=== PATIENT | male | born 1950 | race Caucasian/White ===

== ENCOUNTER → 2024-05-04 | Outpatient (CLI) | payer MEDICARE, MEDICAID, SELFPAY ==
--- NOTE | 2024-05-04 15:40 | RAD_ITS ---
PROCEDURE: HAND MIN 3 VIEWS REASON FOR EXAM: PAIN TECHNIQUE: 3 view(s) of the right hand COMPARISON: None. FINDINGS: No fracture or dislocation. The joint spaces appear within limits. No radiopaque foreign body identified. 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 Soft tissues are unremarkable. RAD/Hand Min 3 Views IMPRESSION: No fracture or dislocation. 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 Reading Location: [id number]
== END | disposition home or self-care (01) ==
PROVIDERS: PCP Family Medicine; Referring Provider Surgery Plastic and Reconstructive Surgery; Visit Provider Surgery Plastic and Reconstructive Surgery
DX: M79.641 Pain in right hand (principal)
CPT/HCPCS: 73130

== ENCOUNTER 2024-06-12 10:49 | Outpatient (CLI) | payer MEDICARE, MEDICAID, SELFPAY ==
--- NOTE | 2024-06-12 10:52 | ART_ITS ---
Reason For Study Reason For Study: CLAUDICATION Procedure A bilateral lower extremity continuous wave Doppler with analog waveform analysis,segmental pressures,and ankle brachial indexes with exercise. Left Segmental Pressures Left posterior tibial artery = 152mmHg. Left dorsalis pedis artery = 131mmHg. Left digit = 154 mmHg. The left posterior tibial artery waveforms are triphasic. The left dorsalis pedis waveforms are triphasic. Right Segmental Pressures Right posterior tibial artery = 161mmHg. Right dorsalis pedis artery = 140mmHg. Right digit = 153 mmHg. The right posterior tibial artery waveforms are biphasic. The right dorsalis pedis waveforms are triphasic. Indices The right ankle brachial index by the posterior tibial artery is 1.18. The right ankle brachial index by the dorsalis pedis is 1.02. The right digital-brachial index is 1.12. The right post exercise ankle brachial index is 1.23. The left ankle brachial index by the posterior tibial artery is 1.11. The left ankle brachial index by the dorsalis pedis is 0.96. The left digital-brachial index is 1.12. The left post exercise ankle brachial index is 1.19. VL/Lower Ext Art Exam w/ Exercise Interpretation Summary Right RAQUEL 1.18, normal. TBI and Doppler/PVR waveforms of the right leg normal a t rest. Right lower extremity exhibits normal response to exercise. Left RAQUEL 1.11, normal. TBI and Doppler/PVR waveforms of the left leg normal at rest. Left lower extremity exhibits normal response to exercise. Ordering Physician: Claudia Castro Referring Physician: Jorden Guzmán Performed By: Shiv Prather RVT
== END 2024-06-12 23:59 | disposition home or self-care (01) ==
LOC: CVS 10:49
PROVIDERS: PCP Family Medicine; Referring Provider Physician Assistant; Visit Provider Physician Assistant
DX: I73.9 Peripheral vascular disease, unspecified (principal)
CPT/HCPCS: 93924

== ENCOUNTER → 2024-06-20 | Outpatient (CLI) | payer MEDICARE, MEDICAID, SELFPAY ==
--- NOTE | 2024-06-20 15:55 | RAD_ITS ---
PROCEDURE: LUMBAR SPINE 2 OR 3 VIEWS 06/20/2024 REASON FOR EXAM: CLAUDICAITON, RADICULAR PAIN TECHNIQUE: 2 view(s) of the lumbar spine FINDINGS: Vertebrae: No acute fracture. Discs: Mild multilevel disc space narrowing. Alignment: Mild levoscoliosis centered at L3. 5 mm of anterolisthesis of L4 on L5. Other: Facet hypertrophy. RAD/Lumbar Spine 2 or 3 Views IMPRESSION: Mild levoscoliosis with degenerative disc disease with 5 mm of anterolisthesis of L4 on L5. Reading Location: [id number]
== END | disposition home or self-care (01) ==
LOC: RAD 15:52
PROVIDERS: PCP Family Medicine; Referring Provider Physician Assistant; Visit Provider Physician Assistant
DX: I73.9 Peripheral vascular disease, unspecified (principal); M79.606 Pain in leg, unspecified
CPT/HCPCS: 72100

== ENCOUNTER → 2024-08-18 | Outpatient (CLI) | payer MEDICARE, MEDICAID, SELFPAY ==
--- NOTE | 2024-08-18 10:50 | MRI_ITS ---
PROCEDURE: SPINE LUMBAR (ROUTINE) 08/18/2024 REASON FOR EXAM: PAIN TECHNIQUE: SPINE LUMBAR (ROUTINE) COMPARISON: June 20, 2024 x-ray FINDINGS: There is grade 1 spondylolisthesis at L4-5, 0.4 cm. The vertebral body height is maintained. Vertebral body marrow signal is normal. Intervertebral disc signal shows desiccation. The facets are aligned. The L1-L2 level: There is mild central disc protrusion. There is no lateral recess stenosis or foraminal stenosis. There is no critical central canal stenosis. The L2-L3 level: There is mild central and right and left paracentral disc and osteophyte protrusion. There is mild bilateral lateral recess effacement. There is mild bilateral foraminal narrowing secondary to disc protrusion and facet hypertrophy. There is no critical central canal stenosis. The L3-L4 level: There is moderate central and right and left paracentral disc and osteophyte protrusion. There is moderate bilateral lateral recess stenosis. There is moderate bilateral foraminal narrowing secondary to disc protrusion and facet hypertrophy. There is mild central canal stenosis. The L4-L5 level: There is moderate central and right and left paracentral disc and osteophyte protrusion. There is moderate right and severe left lateral recess stenosis. There is moderate bilateral foraminal narrowing secondary to disc protrusion and facet hypertrophy. There is severe central canal stenosis, partly secondary to ligamentous hypertrophy. Bilateral facet effusions are present. The L5-S1 level: There is mild central disk protrusion. There is no lateral recess stenosis or foraminal stenosis. There is no critical central canal stenosis. The visualized conus shows normal signal characteristics. A 9 cm cyst is partly visible on the upper pole of the left kidney. MRI/Spine Lumbar (Routine) IMPRESSION: A 9 cm cyst is partly visible on the upper pole of the left kidney. There is grade 1 spondylolisthesis at L4-5, 0.4 cm. There is mild central canal stenosis at L3-4, severe central canal stenosis at L4-5, with lateral recess and foraminal narrowing. Reading [facility]
== END | disposition home or self-care (01) ==
LOC: MRI 10:17
PROVIDERS: PCP Family Medicine; Referring Provider Student in an Organized Health Care Education/Training Program; Visit Provider Student in an Organized Health Care Education/Training Program
DX: M48.062 Spinal stenosis, lumbar region with neurogenic claudication (principal); M43.16 Spondylolisthesis, lumbar region
CPT/HCPCS: 72148

== ENCOUNTER 2024-12-11 20:30 | Emergency (ER) | payer MEDICARE, MEDICAID, SELFPAY ==
[2024-12-11] VITALS (17 sets, daily range): BP systolic 93–121; BP diastolic 46–77; PULSE 91–106; RESP 14–28; TEMP 37; O2SAT 94–100; BMI 33.9
--- NOTE | 2024-12-11 21:47 | EKG12_ITS ---
Test Reason : DYSRHYTHMIA Blood Pressure : */* mmHG Vent. Rate : 93 BPM Atrial Rate : 93 BPM P-R Int : 162 ms QRS Dur : 108 ms QT Int : 384 ms P-R-T Axes : 72 -22 72 degrees QTcB Int : 477 ms Sinus rhythm with occasional Premature ventricular complexes Nonspecific ST abnormality Abnormal ECG Confirmed by Ki Arana ([id number]), medical editor YADIEL VALDES ([id number]) on 12/12/2024 11:16:28 AM Referred By: CHERYL Confirmed By: Ki Arana
--- NOTE | 2024-12-11 21:57 | ED.VIS.DYS ---
HPI History of Present Illness Chief Complaint: Shortness of Breath Informant: patient Onset/Context/Timing Onset: Today and Yesterday Context: gradual Timing: Intermittent and - (Primarily supine.) Quality: Positive for Orthopnea Current Severity: Gone Maximum Severity: Mild Worsened by: Lying flat Relieved by: - (Upright position) Associated Symptoms Chest Pain: Positive for None Narrative Narrative: 74-year-old male history of CHF, diabetes, CAD with a total of 3 stents. Prostate cancer. Last stents were placed a month ago at [facility]. He has been on Brilinta and states he has been taking it. She has been short of breath last 2 days primarily supine he was concerned. He had congestive heart failure with the symptoms 10 years ago. Denies any fever. No new cough. No leg swelling. No hemoptysis. No chest pain. PE Risk Factors: Positive for Cancer, Recent immobilization, Recent surgery (Cardiac cath with stents.) and - (Patient is on a blood thinner Brilinta. Has been taking it.); Negative for Prior DVT or PE or Recent travel Prior similar symptoms: Yes (CHF 10 years ago.) Recent Illness/Hospitalization: Yes [facility] Medical History Cervical myelopathy Kyphosis Cervical radiculopathy Pain Family history of prostate problems Heart failure High blood pressure High cholesterol Neuropathy Cancer Carpal tunnel syndrome Home Medications ?Medication ?Instructions ?Recorded ?Last Taken ?Type albuterol sulfate 2.5 mg/3 mL 2.5 mg inhalation Q4H PRN PRN Sob 05/10/14 Unknown History (0.083 %) solution for nebulization &/Or Wheezing albuterol sulfate 90 mcg/actuation 2 puff inhalation Q4H PRN PRN Sob 05/10/14 Unknown History aerosol inhaler (Ventolin HFA) &/Or Wheezing metformin 500 mg tablet,extended 1,000 mg PO BID 05/10/14 Unknown History release 24 hr atorvastatin 80 mg tablet 80 mg PO QHS 05/26/24 Unknown History clopidogrel 75 mg tablet 75 mg PO QDAY 05/26/24 Unknown History empagliflozin 25 mg tablet 25 mg PO QAM 05/26/24 Unknown History (Jardiance) glimepiride 4 mg tablet 4 mg PO BID 05/26/24 Unknown History lisinopril 10 mg tablet 10 mg PO QDAY 05/26/24 Unknown History metoprolol succinate 25 mg 25 mg PO QDAY 05/26/24 Unknown History tablet,extended release 24 hr sitagliptin phosphate 100 mg 100 mg PO QDAY 05/26/24 Unknown History tablet (Januvia) prednisone 20 mg tablet 40 mg (2 x 20 mg) PO DAILY 7 days 12/11/24 Unknown Rx #14 tabs Allergy/AdvReac Type Severity Reaction Status Date / Time No Known Allergies Allergy Verified 12/11/24 20:32 Family History Other Cancer Diabetes Heart disease Hypertension Social History Smoking Status: Light Smoker (<10/day) Tobacco: How many years used: 50 ROS ROS ED ROS Narrative Shortness of breath primarily supine. Constitutional Constitutional ED: Denies fever(s) Eyes Eyes: Denies blurry vision ENT ENT ED: Denies ear pain Cardiovascular Cardiovascular: Reports orthopnea; Denies chest pain Respiratory/Chest Respiratory/Chest: Reports dyspnea and orthopnea; Denies cough Gastrointestinal Gastrointestinal: Denies abdominal pain, diarrhea, nausea or vomiting Genitourinary Genitourinary ED: Denies dysuria or hematuria Musculoskeletal Musculoskeletal: Denies arthralgias Integumentary Denies abscess Neurologic Neurologic: Denies headache(s) Psychiatric Psychiatric: Denies anxiety or depression Endocrine Endocrinology: Denies cold intolerance Hematologic/Lymphatic Hematologic/Lymphatic: Denies easy bleeding, easy bruising or lymphadenopathy Allergic/Immunologic Allergic/Immunologic ED: Denies mouth swelling, tongue swelling or urticaria EXAM Physical Exam Narrative Exam Narrative: Well-appearing 74-year-old male. Vital signs show initial blood pressure 90/77 but he is sitting up tolerating it well. Pulse ox is 98% on room air. He said he is symptom-free sitting upright. H EENT exam pupils round react light. Neck nontender no JVD. Lungs scattered wheezing. No rales or rhonchi. Equal symmetrical. Heart rate about 95. No murmur. Chest wall nontender. Abdomen soft nontender. Moving all 4 extremities. Calves are nontender without edema or cords. 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 Normal radial pulses. Back nontender. Neurologically is awake alert. Answer questions following commands. Const Vital Signs: 12/11/24 20:31 12/11/24 20:59 12/11/24 20:59 Temperature 98.6 F Temperature Source Oral Pulse Rate 106 H 96 Respiratory Rate 15 21 H Respiratory Effort Short of Breath Respiratory Depth Normal Respiratory Pattern Tachypnea Blood Pressure 93/77 Blood Pressure Mean 82 Pulse Ox 98 97 Oxygen Delivery Method Room Air Room Air 12/11/24 21:00 12/11/24 21:15 12/11/24 21:30 Temperature Temperature Source Pulse Rate 93 95 92 Respiratory Rate 26 H 28 H 16 Respiratory Effort Respiratory Depth Respiratory Pattern Blood Pressure 110/61 101/46 L Blood Pressure Mean 76 64 Pulse Ox 95 94 95 Oxygen Delivery Method 12/11/24 21:45 12/11/24 21:47 12/11/24 22:00 Temperature Temperature Source Pulse Rate 97 96 Respiratory Rate 22 H 28 H Respiratory Effort Respiratory Depth Respiratory Pattern Blood Pressure 107/50 L 110/77 Blood Pressure Mean 67 88 Pulse Ox 94 96 96 Oxygen Delivery Method Room Air 12/11/24 22:09 12/11/24 22:15 12/11/24 22:31 Temperature Temperature Source Pulse Rate 96 91 Respiratory Rate 22 H 14 Respiratory Effort Respiratory Depth Respiratory Pattern Tachypnea Blood Pressure 118/58 L 121/65 H Blood Pressure Mean 76 81 Pulse Ox 100 Oxygen Delivery Method 12/11/24 22:31 12/11/24 22:37 12/11/24 22:45 Temperature Temperature Source Pulse Rate 95 91 Respiratory Rate 23 H 24 H Respiratory Effort Respiratory Depth Respiratory Pattern Blood Pressure 121/65 H Blood Pressure Mean 81 Pulse Ox 95 97 Oxygen Delivery Method 12/11/24 23:00 12/11/24 23:15 12/11/24 23:30 Temperature Temperature Source Pulse Rate 92 93 98 Respiratory Rate 23 H 22 H 20 H Respiratory Effort Respiratory Depth Respiratory Pattern Blood Pressure Blood Pressure Mean Pulse Ox 98 96 Oxygen Delivery Method 12/11/24 23:45 12/12/24 00:00 12/12/24 00:15 Temperature Temperature Source Pulse Rate 96 96 91 Respiratory Rate 19 H 22 H 25 H Respiratory Effort Respiratory Depth Respiratory Pattern Blood Pressure Blood Pressure Mean Pulse Ox 95 95 95 Oxygen Delivery Method MDM MDM MDM Narrative Medical decision making narrative: 74-year-old male short of breath may be secondary to CHF with his orthopnea. Rule out MA with pneumonia also he does have a history of COPD is wheezing to be given an aerosol treatment. Will reassess his blood pressure at this time I do not want to give him fluids to have further information. Repeat exam patient is doing much better around 11:40 PM. Breathing is improved after the aerosol and Solu-Medrol. Wheezing is resolved. Chest x-ray does not show any signs of failure. Labs are consistent with mild dehydration he was given a fluid bolus. Patient to be discharged home treated as a COPD exacerbation. He has an inhaler at home. We placed on prednisone 40 mg a day for a week. Follow-up with his doctor. Return if feeling worse. Patient doing well at 12:18 AM. To be discharged home with outpatient follow-up. Patient and family are comfortable with the plan. History & Record Review Discussion w/independent historian: Patient and Family Additional record(s) reviewed:: Prior inpatient record, Prior outpatient record, Prior ED visit and Prior labs Lab Data Attestation: I reviewed the patient's lab results. Lab results narrative: CBC white count 8. H&H of 12.2 and 37. Platelets 497. Chest x-ray chronic changes no acute process. Chemistries show a gap of 18. BUN and creatinine of 30 and 1. Glucose 152. Initial troponin 32. Repeat troponin 37. BNP 326. Labs: Laboratory Results - last 24 hr 12/11/24 12/11/24 20:49 23:27 WBC 8.8 RBC 4.13 L Hgb 12.2 L Hct 37.4 L MCV 90.6 MCH 29.5 MCHC 32.6 RDW Std Deviation 47.9 H RDW Coeff of Ron 14.5 Plt Count 497 H MPV 9.1 Immature Gran % (Auto) 0.300 Neut % (Auto) 77.7 H Lymph % (Auto) 8.6 L Barren % (Auto) 9.0 Eos % (Auto) 4.1 Baso % (Auto) 0.3 Absolute Neuts (auto) 6.8 Absolute Lymphs (auto) 0.76 L Nucleated RBC % 0 Sodium 136 Potassium 4.3 Chloride 99 Carbon Dioxide 19.5 L Anion Gap 18 H BUN 30 H Creatinine 1.00 Estim Creat Clear Calc 74.57 Est GFR (MDRD) Non-Af 80 BUN/Creatinine Ratio 30.0 H Glucose 152 H Calcium 9.1 Troponin T High Sens 32 H Troponin T Hi Sens 2 Hr 37 H NT pro BNP II 326 Radiography Chest X-Ray - ED: 2 View, Read by ED Physician, Read by Radiologist, Heart, Lungs, Mediastinum, Bony Structures, No Acute Disease and Chronic Changes Diagnostic Testing: Clinical Impression(s) from Imaging Studies Chest X-Ray 12/11/24 22:26 IMPRESSION: No acute cardiopulmonary disease. Reading Location: [facility] Chest x-ray, 2 views, AP and lateral, interpreted by by myself and the radiologist shows no acute abnormality. Normal cardiac silhouette. Normal lung moore. No pneumonia. No effusions. No signs of congestive heart failure. Chronic changes. Rhythm Strip Rhythm Strip: Sinus Rhythm Rate: 93 Ectopy: PVC(s) EKG Initial EKG: Attestation: I personally reviewed and interpreted this EKG as follows: Interpretation: Sinus Rhythm and No Acute Injury Pattern Comments: Normal sinus rhythm rate 93 with PVCs. No acute signs of MA or ischemia. Discharge Plan Triage Chief Complaint: Shortness of Breath ED Provider: Toby Sanon Dx/Rx/DC Orders Clinical Impression: Shortness of breath, Bilateral wheezing, Acute exacerbation of chronic obstructive pulmonary disease, Hx of acute congestive heart failure, Type 2 diabetes mellitus Instructions: COPD Quit Smoking, ED COPD Flare Prescriptions: New prednisone 20 mg tablet 40 mg PO DAILY 7 Days Qty: 14 0RF No Action Jardiance 25 mg tablet 25 mg PO QAM lisinopril 10 mg tablet 10 mg PO QDAY glimepiride 4 mg tablet 4 mg PO BID metoprolol succinate 25 mg tablet extended release 24 hr 25 mg PO QDAY Januvia 100 mg tablet 100 mg PO QDAY atorvastatin 80 mg tablet 80 mg PO QHS clopidogrel 75 mg tablet 75 mg PO QDAY albuterol sulfate 2.5 MG/3 ML solution for nebulization 2.5 mg inhalation Q4H PRN PRN (Reason: Sob &/Or Wheezing) metformin 500 MG tablet 1,000 mg PO BID albuterol sulfate [Ventolin HFA] 1 INHALER inhaler 2 puff inhalation Q4H PRN PRN (Reason: Sob &/Or Wheezing) Primary Care Provider: Jorden Guzmán Referrals: Jorden Guzmán MD [Primary Care Provider, Family Practice] - 3-5 Days if not improving Activity Restrictions/Additional Instructions: Use your inhaler 2 puffs every 2 hours as needed. Follow-up with your doctor to ensure you are improving. Plenty of fluids and rest. Prednisone 40 mg a day for 1 week. He should progressively get better. Tonight there is no signs of congestive heart failure. Long-term for your own health make sure you cut back and long-term try to stop smoking. Print Language: [place] Disposition Disposition: Home, Self Care
--- OUTSIDE RECORDS SUMMARY | 2024-12-11 21:59 | XMS RPT_ITS | CCD ---
Author Organization [facility] Care Team Providers Care Rn Staff Name Role Phone PABLO PRECIADO Unavailable Unavailable Jorden Hartmann Unavailable Unavailable PABLO PRECIADO Unavailable Unavailable PABLO PRECIADO Unavailable Unavailable Jorden Hartmann Unavailable Unavailable Jorden Hartmann Unavailable Unavailable PABLO PRECIADO Unavailable Unavailable Jorden Hartmann MD Primary Care Provider [facility], Keti Unavailable Jorden Hartmann MD Primary Care Provider [facility], Keti Unavailable [facility], Keti Unavailable Jorden Hartmann MD Primary Care Provider 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 Jorden Hartmann MD Primary Care Provider Dr. Jorden Hartmann MD Referring Provider Dr. Guru Antony MD Attending Provider Dr. Guru Antony MD Referring Provider Venita Pierson Unavailable Unavailabl Jorden Brown MD Primary Care Provider Debora Baum Referring Provider Dr. Jorden Hartmann MD Referring Provider Claudia Delgado Attending Provider Claudia Delgado Referring Provider [phone] Cornell Self MD Attending Provider Acacia Cai Attending Provider Luisa PERALES, Dr. 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 Leonardo Primary Care Provider Arpan PERALES, Dr. Garvey Attending Provider Acacia Cai Referring Provider Arielle PERALES, Dr. Leonardo Primary Care Provider Arpan PERALES, Dr. Garvey Referring Provider Arielle PERALES, Dr. Leonardo Referring Provider Arpan PERALES, Dr. Garvey Attending Provider Darion PERALES, Dr. Patel Attending Provider Arielle, Jorden Referring Unavailable Arielle, Jorden Primary Care Unavailable Jorge Olrando Attending Unavailable Arielle, Jorden Referring Unavailable Arielle, Jorden Primary Care Unavailable Siska, Guru Attending Unavailable Airelle, Jorden Primary Care Unavailable Braxton Moran Attending Unavailable Arielle, Jorden Referring Unavailable Arielle, Jorden Primary Care Unavailable ErikaAcacia Attending Unavailable Arielle, Jorden Primary Care Unavailable Dori Jamesyn Attending Unavailable Erika, Acacia Referring Unavailable Castro, Claudia Referring Unavailable Arielle, Jorden Primary Care Unavailable Castro, Claudia Attending Unavailable Castro, Claudia Attending Unavailable Castro, Claudia Referring Unavailable Arielle, Jorden Primary Care Unavailable Arielle, Jorden Primary Care Unavailable Siska, Guru Attending Unavailable Siska, Guru Referring Unavailable Castro, Claudia Attending Unavailable Arielle, Jorden Primary Care Unavailable Siska, Guru Referring Unavailable Arielle, Jorden Primary Care Unavailable Arielle, Jorden Referring Unavailable Siska, Guru Attending Unavailable Castro, Claudia Referring Unavailable Arielle, Jorden Primary Care Unavailable Cornell Self Attending Unavailable Arielle, Jorden Primary Care Unavailable Siska, Guru Attending Unavailable Debora Baum Referring Unavailable Eduardo PERALES, Bebeto Unavailable [phone] PROVIDER, UNKNOWN Referring Unavailable ARIELLE, JORDEN A Primary Care Unavailable DOOKHAN, MONICO Referring Unavailable ARIELLE, JORDEN A Primary Care Unavailable DOOKHAN, MONICO Referring Unavailable ARIELLE, JORDEN A Primary Care Unavailable DOOKHAN, MONICO Referring Unavailable ARIELLE, JORDEN A Primary Care Unavailable ARIELLE, JORDEN A Primary Care Unavailable LACHELLE, DAESUNG Referring Unavailable ARIELLE, JORDEN A Primary Care Unavailable LACHELLE, DAESUNG Referring Unavailable ARIELLE, JORDEN A Primary Care Unavailable LACHELLE, DAESUNG Attending Unavailable LACHELLE, DAESUNG Referring Unavailable ARIELLE, JORDEN A Primary Care Unavailable LACHELLE, DAESUNG Referring Unavailable ARIELLE, JORDEN A Primary Care Unavailable PALMIRA RUSSELL Referring Unavailable ARIELLE, JORDEN A Primary Care Unavailable ARIELLE, JORDEN A Attending Unavailable SELF Referring Unavailable ARIELLE, JORDEN A Primary Care Unavailable MOO MABRY Attending Unavailable ARIELLE, JORDEN A Primary Care Unavailable LACHELLE, DAESUNG Referring Unavailable ARIELLE, JORDEN A Primary Care Unavailable LACHELLE, DAESUNG Referring Unavailable ARIELLE, JORDEN A Primary Care Unavailable LACHELLE, DAESUNG Referring Unavailable ARIELLE, JORDEN A Primary Care Unavailable LACHELLE, DAESUNG Referring Unavailable ARIELLE, JORDEN A Primary Care Unavailable LACHELLE, DAESUNG Referring Unavailable ARIELLE, JORDEN A Primary Care Unavailable LACHELLE, DAESUNG Referring Unavailable ARIELLE, JORDEN A Primary Care Unavailable AYAN JEFFERSON JR Attending Unavaila ble LACHELLE, DAESUNG Referring Unavailable ARIELLE, JORDEN A Primary Care Unavailable LACHELLE, DAESUNG Referring Unavailable ARIELLE, JORDEN A Primary Care Unavailable AYAN JEFFERSON JR Referring Unavaila ble LACHELLE DASUZIUNG Attending Unavailable ARIELLE, JORDEN A Primary Care Unavailable SHAWNEE BELLE Referring Unavailable ARIELLE, JORDEN A Primary Care Unavailable AYAN JEFFERSON JR Attending Unavaila ble ARIELLE, JORDEN A Primary Care Unavailable ARIELLE, JORDEN A Attending Unavailable ARIELLE, JORDEN A Primary Care Unavailable ARIELLE, JORDEN A Referring Unavailable ARIELLE, JORDEN A Primary Care Unavailable ARIELLE, JORDEN A Referring Unavailable ARIELLE, JORDEN A Primary Care Unavailable LACHELLEJESUSUNG Attending Unavailable ARIELLE, JORDEN A Primary Care Unavailable DEBORA MARTINEZ Referring Unavailable DOOKWALLACE, MONICO Attending Unavailable ARIELLE, JORDEN A Primary Care Unavailable LACHELLEJESUSUNG Attending Unavailable ARIELLE, JORDEN A Referring Unavailable ARIELLE, JORDEN A Primary Care Unavailable ARIELLE, JORDEN A Primary Care Unavailable LACHELLEJESUSUNG Attending Unavailable ARIELLE, JORDEN A Primary Care Unavailable LACHELLE, DAESUNG Referring Unavailable LACHELLE, DAESUNG Referring Unavailable ARIELLE, JORDEN A Primary Care Unavailable ARIELLE, JORDEN A Primary Care Unavailable LACHELLE, DASUZIUNG Referring Unavailable ARIELLE, JORDEN A Primary Care Unavailable DEBORA MARTINEZ Referring Unavailable ARIELLE, JORDEN A Primary Care Unavailable LACHELLE, DAESUNG Referring Unavailable ARIELLE, JORDEN A Primary Care Unavailable ARIELLE, JORDEN A Referring Unavailable ARIELLE, JORDEN A Primary Care Unavailable AYAN JEFFERSON JR Attending Unavaila ble ARIELLE, JORDEN A Primary Care Unavailable DEBORA MARTINEZ Attending Unavailable ARIELLE, JORDEN A Primary Care Unavailable ARIELLE, JORDEN A Referring Unavailable ARIELLE, JORDEN A Primary Care Unavailable LACHELLE, JESUSUNG Attending Unavailable ARIELLE, JORDEN A Primary Care Unavailable LACHELLE, JESUSUNG Attending Unavailable ARIELLE, JORDEN A Primary Care Unavailable LACHELLE, JESUSUNG Attending Unavailable LACHELLE, DAESUNG Referring Unavailable ARIELLE, JORDEN A Primary Care Unavailable LACHELLE, DAESUNG Referring Unavailable ARIELLE, JORDEN A Primary Care Unavailable GERMAN CATALAN Attending Unavailable ARIELLE, JORDEN A Primary Care Unavailable LACHELLE, DAESUNG Referring Unavailable ARIELLE, JORDEN A Primary Care Unavailable LACHELLE, DASUZIUNG Attending Unavailable ARIELLE, JORDEN A Primary Care Unavailable LACHELLE, DAESUNG Referring Unavailable ARIELLE, JORDEN A Primary Care Unavailable LACHELLE, DAESUNG Referring Unavailable ARIELLE, JORDEN A Primary Care Unavailable LACHELLE, DAESUNG Referring Unavailable ARIELLE, JORDEN A Primary Care Unavailable LACHELLE, DAESUNG Referring Unavailable ARIELLE, JORDEN A Primary Care Unavailable LACHELLE, DAESUNG Referring Unavailable ARIELLE, JORDEN A Primary Care Unavailable LACHELLE, DAESUNG Referring Unavailable ARIELLE, JORDEN A Primary Care Unavailable LACHELLE, DAESUNG Referring Unavailable ARIELLE, JORDEN A Primary Care Unavailable LACHELLE, DASUZIUNG Attending Unavailable ARIELLE, JORDEN A Primary Care Unavailable LACHELLE, DAESUNG Referring Unavailable ARIELLE, JORDEN A Primary Care Unavailable LACHELLE, DAESUNG Referring Unavailable ARIELLE, JORDEN A Primary Care Unavailable LACHELLE, DAESUNG Referring Unavailable PALMIRA RUSSELL Attending Unavailable ARIELLE, JORDEN A Primary Care Unavailable ZO BOWDEN Attending Unavailable JORDEN HARTMANN Primary Care Unavailable ZO BOWDEN Attending Unavailable JORDEN HARTMANN Primary Care Unavailable GAJANANA, DEEPAKRAJ Admitting Unavailable GAJANANA DEEPAKRAJ Attending Unavailable GAJANCHELSEY, DEEPAKRAJ Referring Unavailable JORDEN HARTMANN Primary Care Unavailable HENDRANI, SANTIAGO Admitting Unavailable HENDRANI, SANTIAGO Attending Unavailable HENDRANI, SANTIAGO Referring Unavailable JORDEN HARTMANN Primary Care Unavailable GAJANANA, DEEPAKRAJ Admitting Unavailable GAJANANA, DEEPAKRAJ Attending Unavailable EDUARDO, DEEPAKRAJ Referring Unavailable JORDEN HARTMANN Primary Care Unavailable JORDEN HARTMANN Consulting Unavailable Allergies Allergy Classification Reported Allergen(s) Allergy Type Date of Onset Reaction(s) Facility semaglutide (1 source) semaglutide Drug Allergy 04-16-2021 Diarrhea [facility] (20 sources) semaglutide; Translations: [SEMAGLUTIDE] Drug Allergy 04-16-2021 Diarrhea [facility] Work Phone: Medications Current Medications Medication Drug Class(es) Dates Sig (Normalized) Sig (Original) acetaminophen 500 mg oral tablet (1 source) Start: 10-30-2024 End: 10-30-2024 take 2 tablets by mouth once acetaminophen (TYLENOL) 500 mg tablet Indications: Coronary artery disease involving [place] coronary artery of [place] heart without angina pectoris , Preoperative testing Take 2 tablets by mouth one time only for 1 dose. Please take morning of surgery. 10/30/2024 10/30/2024 Active [id number] 200 actuat albuterol 0.09 mg/actuat metered dose inhaler (20 sources) beta2-Adrenergic Agonist Start: 12-06-2019 End: 10-22-2021 take 2 puff(s) by inhalation every four hours as needed albuterol HFA (PROVENTIL HFA, VENTOLIN HFA) 90 mcg/actuation inhaler Inhale 2 Puffs as instructed every 4 hours as needed. 18 g 2 10/22/2021 Active Start: 05-10-2014 take 2.5 mg by inhal ation every four hours as needed for wheezing Albuterol Sulfate 2.5 MG/3 ML solution for nebulization Active 2.5 mg INHALATION EVERY 4 HOURS NEEDED as needed for Sob &/Or Wheezing May 10, 2014 12:00am Start: 05-10-2014 Albuterol Sulf ate (Ventolin Hfa (Sp)) 1 INHALER inhaler Active 2 NMA INHALATION EVERY 4 HOURS NEEDED as needed for Sob &/Or Wheezing May 10, 2014 12:00am Comment on above: Inhale 2 Puffs as in structed every 4 hours as needed. aspirin 81 mg delayed release oral tablet (7 sources) Platelet Aggregation Inhibitor, Nonsteroidal Anti-inflammatory Drug Start: 10-30-2024 take 1 tablet by mouth once aspirin, enteric coated (ASPIRIN, ENTERIC COATED) 81 mg EC tablet Indications: Coronary artery disease involving [place] coronary artery of [place] heart without angina pectoris , Preoperative testing Take 1 tablet by mouth one time only for 1 dose. Take morning of surgery. 10/30/2024 Active Start: 06-28-2019 End: 04-01-2022 take 1 tablet by mouth once daily aspirin, enteric coated (ASPIRIN, ENTERIC COATED) 81 mg EC tablet Take 1 tablet by mouth once daily. 90 tablet 3 06/28/2020 04/01/2022 Discontinued Comment on above: Take 1 tablet by fabian th once daily. atorvastatin 80 mg oral tablet (20 sources) HMG-CoA Reductase Inhibitor Start: End: take 1 tablet by mouth once daily at bedtime atorvastatin (LIPITOR) 80 mg tablet Take 1 tablet by mouth daily at bedtime. 90 tablet 3 02/01/2024 Active Start: 04-16-2021 End: 10-27-2023 take 1 tablet by mouth once daily at bedtime atorvastatin (LIPITOR) 80 mg tablet Take 1 tablet by mouth daily at bedtime. 90 tablet 07/27/2023 10/27/2023 Discontinued Start: 12-06-2019 End: 01-26-2020 take 1 tablet by mouth once daily at bedtime atorvastatin (LIPITOR) 80 mg tablet Take 1 tablet by mouth daily at bedtime. 90 tablet 1 12/06/2019 01/26/2020 Discontinued Comment on above: Take 1 tablet by fabian th daily at bedtime. Blood-Glucose Meter (20 sources) Start: 04-16-2021 Blood-Glucose Meter Indications: Type 2 diabetes mellitus without retinopathy (HCC) , Uncontrolled type 2 diabetes mellitus with diabetic polyneuropathy, without long-term current use of insulin Test Blood Sugars 2 times daily Dx E11.42 Insulin: No 1 Each 04/16/2021 Active Start: 04-16-2021 Blood-Glucose Meter Indications: Type 2 diabetes mellitus without retinopathy (HCC) , Uncontrolled type 2 diabetes mellitus with diabetic polyneuropathy, without long-term current use of insulin Test Blood Sugars 2 times daily Dx E11.42 Insulin: No 1 Each 0 04/16/2021 Active Comment on above: Test Blood Sugars 2 times daily Dx E11.42 Insulin: No chlorhexidine gluconate 1.2 mg/ml mouthwash (3 sources) Start: End: Chlorhexidine Gluconate (PERIDEX) 0.12 % solution Indications: Coronary artery disease involving [place] coronary artery of [place] heart without angina pectoris , Preoperative testing Use 15 mL as instructed two times a day for 5 days. Rinse around mouth for 30 seconds then expectorate twice daily starting 5 days prior to surgery and morning of surgery. 150 mL 10/30/2024 11/04/2024 Active clopidogrel 75 mg oral tablet (20 sources) [id number] Platelet Inhibitor Start: End: take 1 tablet by mouth once daily clopidogrel (PLAVIX) 75 mg tablet Take 1 tablet by mouth once daily. 90 tablet 3 02/01/2024 Active Start: 04-16-2021 End: 10-27-2023 take 1 tablet by mouth once daily clopidogrel (PLAVIX) 75 mg tablet Take 1 tablet by mouth once daily. 90 tablet 07/27/2023 10/27/2023 Discontinued Start: 12-06-2019 End: 06-27-2020 take 1 tablet by mouth once daily clopidogrel (PLAVIX) 75 mg tablet Take 1 tablet by mouth once daily. 90 tablet 1 12/06/2019 06/27/2020 Discontinued Comment on above: Take 1 tablet by fabian th once daily. empagliflozin 25 mg oral tablet (20 sources) Sodium-Glucose Cotransporter 2 Inhibitor Start: End: take 1 tablet by mouth once daily at breakfast empagliflozin (JARDIANCE) 25 mg tablet Take 1 tablet by mouth daily with breakfast. 90 tablet 3 02/01/2024 Active Start: 04-16-2021 End: 10-27-2023 take 1 tablet by mouth once daily at breakfast empagliflozin (JARDIANCE) 25 mg tablet Take 1 tablet by mouth daily with breakfast. 90 tablet 07/27/2023 10/27/2023 Discontinued Start: 12-06-2019 End: 02-26-2020 take 1 tablet by mouth once daily at breakfast empagliflozin (JARDIANCE) 25 mg tablet Take 1 tablet by mouth daily with breakfast. 90 tablet 1 12/06/2019 02/26/2020 Discontinued Comment on above: Take 1 tablet by fabian th daily with breakfast. ezetimibe 10 mg oral tablet (9 sources) Dietary Cholesterol Absorption Inhibitor Start: 09-28-2024 take 1 tablet by mouth once daily ezetimibe (ZETIA) 10 mg tablet Take 1 tablet by mouth once daily. 90 tablet 1 09/28/2024 Active 24 hr ferrous sulfate 142 mg extended release oral tablet (17 sources) Start: 04-16-2021 End: 11-27-2022 take 1 tablet by mouth once daily Ferrous Sulfate (SLOW FE) 142 mg (45 mg iron) TbER Indications: Iron deficiency anemia, unspecified iron deficiency anemia type Take 1 tablet by mouth once daily. 90 tablet 1 11/27/2022 Active Start: 09-26-2019 End: 12-18-2020 take 1 tablet by mouth once daily Ferrous Sulfate (SLOW FE) 142 mg (45 mg iron) TbER Take 1 tablet by mouth once daily. 09/26/2019 12/18/2020 Discontinued Comment on above: Take 1 tablet by fabian th once daily. flash glucose scanning reader (FREESTYLE ADRIAN 10 DAY READER) (20 sources) Start: 12-18-2020 flash glucose scanning reader (FREESTYLE ADRIAN 10 DAY READER) Indications: Type 2 diabetes mellitus without retinopathy (HCC) 1 Device twice daily. Check blood sugar twice a day 1 Each 12/18/2020 Active Start: 12-18-2020 flash glucose scanning reader (FREESTYLE ADRIAN 10 DAY READER) Indications: Type 2 diabetes mellitus without retinopathy (HCC) 1 Device twice daily. Check blood sugar twice a day 1 Each 0 12/18/2020 Active Comment on above: 1 Device twice daily . Check blood sugar twice a day flash glucose sensor (FREESTYLE ADRIAN 10 DAY SENSOR) kit (20 sources) Start: 12-18-2020 flash glucose sensor (FREESTYLE ADRIAN 10 DAY SENSOR) kit Indications: Type 2 diabetes mellitus without retinopathy (HCC) 1 Each one time a week. Check blood sugar twice a day 1 Kit 12/18/2020 Active Start: 12-18-2020 flash glucose sensor (FREESTYLE ADRIAN 10 DAY SENSOR) kit Indications: Type 2 diabetes mellitus without retinopathy (HCC) 1 Each one time a week. Check blood sugar twice a day 1 Kit 0 12/18/2020 Active Comment on above: 1 Each one time a we ek. Check blood sugar twice a day fluticasone / salmeterol (15 sources) Corticosteroid, beta2-Adrenergic Agonist Start: 2 take 1 puff(s) by inhalation twice daily fluticasone-salmete rol (ADVAIR DISKUS) 100-50 mcg/dose inhaler Inhale 1 Puff as instructed twice daily. 1 Each 5 10/22/2021 Active Start: 04-16-2021 End: 10-22-2021 take 1 puff(s) by inhalation twice daily fluticasone-salmeterol (ADVAIR DISKUS) 100-50 mcg/dose inhaler Inhale 1 Puff as instructed twice daily. 1 Each 5 04/16/2021 10/22/2021 Discontinued Start: 12-06-2019 End: 04-16-2021 take 1 puff(s) by inhalation twice daily fluticasone-salmeterol (ADVAIR) 100-50 mcg/dose Inhale 1 Puff as instructed twice daily. 1 Inhaler 5 12/06/2019 04/16/2021 Discontinued Comment on above: Inhale 1 Puff as ins tructed twice daily. glimepiride 4 mg oral tablet (20 sources) Sulfonylurea Start: 4 End: 4 take 1 tablet by mouth twice daily at mealtime glimepiride (AMARYL) 4 mg tablet Take 1 tablet by mouth two times a day with meals. 180 tablet 3 02/01/2024 Active Start: 04-16-2021 End: 10-27-2023 take 1 tablet by mouth twice daily at mealtime glimepiride (AMARYL) 4 mg tablet Take 1 tablet by mouth two times a day with meals. 180 tablet 07/27/2023 10/27/2023 Discontinued Start: 10-04-2019 End: 04-10-2020 take 1 tablet by mouth twice daily at mealtime glimepiride (AMARYL) 4 mg tablet Indications: Uncontrolled type 2 diabetes mellitus with diabetic polyneuropathy, without long-term current use of insulin Take 1 tablet by mouth twice daily with meals. 180 tablet 1 10/04/2019 04/10/2020 Discontinued Comment on above: Take 1 tablet by fabian th twice daily with meals. Take 1 tablet by fabian th two times a day with meals. lisinopril 10 mg oral tablet (20 sources) Angiotensin Converting Enzyme Inhibitor Start: 10-29-2023 End: 02-01-2024 take 1 tablet by mouth once daily lisinopril (ZESTRIL) 10 mg tablet Take 1 tablet by mouth once daily. 90 tablet 3 02/01/2024 Active Start: 04-16-2021 End: 10-27-2023 take 1 tablet by mouth once daily lisinopril (ZESTRIL) 10 mg tablet Take 1 tablet by mouth once daily. 90 tablet 07/27/2023 10/27/2023 Discontinued Start: 11-23-2019 End: 05-27-2020 take 1 tablet by mouth once daily lisinopril (ZESTRIL, PRINIVIL) 10 mg tablet Take 1 tablet by mouth once daily. 90 tablet 1 11/23/2019 05/27/2020 Discontinued Comment on above: Take 1 tablet by fabian th once daily. metFORMIN hydrochloride 1000 mg oral tablet (20 sources) Biguanide Start: take 1 tablet by mouth twice daily at mealtime metFORMIN (GLUCOPHAGE) 1,000 mg tablet Indications: Type 2 diabetes mellitus with diabetic neuropathy, without long-term current use of insulin (HCC) Take 1 tablet by mouth two times a day with meals. 180 tablet 3 08/07/2024 Active Start: 10-29-2023 End: 02-01-2024 take 1 tablet by mouth twice daily at mealtime metFORMIN (GLUCOPHAGE) 1,000 mg tablet Take 1 tablet by mouth two times a day with meals. 180 tablet 3 02/01/2024 Active Start: 02-08-2023 End: 10-27-2023 take 1 tablet by mouth twice daily at mealtime metFORMIN (GLUCOPHAGE) 1,000 mg tablet Take 1 tablet by mouth two times a day with meals. 180 tablet 07/27/2023 10/27/2023 Discontinued Start: 04-16-2021 End: 04-01-2022 take 1 tablet by mouth twice daily at mealtime metFORMIN (GLUCOPHAGE) 1,000 mg tablet Take 1 tablet by mouth twice daily with meals. 180 tablet 1 04/01/2022 Active Start: 12-06-2019 End: 06-27-2020 take 1 tablet by mouth twice daily at mealtime metFORMIN (GLUCOPHAGE) 1,000 mg tablet Take 1 tablet by mouth twice daily with meals. 180 tablet 1 12/06/2019 06/27/2020 Discontinued Start: 05-10-2014 take 2 tablets by mo [facility] twice daily Metformin 500 MG tablet Active 1000 mg PO TWICE A DAY May 10, 2014 12:00am Comment on above: Take 1 tablet by fabian th twice daily with meals. Take 1 tablet by fabian th two times a day with meals. metoprolol tartrate 25 mg oral tablet (20 sources) beta-Adrenergic Neftali Start: 10-30-2024 take 1 tablet by mouth once metoprolol tartrate, short acting, (LOPRESSOR) 25 mg tablet Indications: Coronary artery disease involving [place] coronary artery of [place] heart without angina pectoris , Preoperative testing Take 1 tablet by mouth one time only for 1 dose. Take morning of surgery. 1 tablet 10/30/2024 Active Start: 08-01-2024 End: 08-01-2025 take 1 tablet by mouth once daily metoprolol succinate ER (TOPROL XL) 50 mg 24 hr tablet Take 1 tablet by mouth once daily. 90 tablet 3 08/01/2024 08/01/2025 Active Start: 10-29-2023 End: 08-01-2024 take 1 tablet by mouth once daily Metoprolol Succinate 25 mg tablet extended release 24 hr Active 25 mg PO daily May 26, 2024 12:00am Start: 11-04-2022 End: 10-27-2023 take 1 tablet by mouth once daily metoprolol succinate ER (TOPROL XL) 25 mg 24 hr tablet Take 1 tablet by mouth once daily. 90 tablet 07/27/2023 10/27/2023 Discontinued Start: 04-16-2021 End: 11-04-2022 take 1 tablet by mouth once daily metoprolol succinate ER (TOPROL XL) 50 mg 24 hr tablet Take 1 tablet by mouth once daily. 90 tablet 1 04/01/2022 11/04/2022 Discontinued Start: 12-06-2019 End: 02-26-2020 take 1 tablet by mouth once daily metoprolol succinate ER (TOPROL XL) 50 mg 24 hr tablet Take 1 tablet by mouth once daily. 90 tablet 1 12/06/2019 02/26/2020 Discontinued Comment on above: Take 1 tablet by fabian th once daily. mupirocin 0.02 mg/mg topical ointment (3 sources) RNA Synthetase Inhibitor Antibacterial Start: 5 End: mupirocin (BACTROBAN) 2 % ointment Indications: Coronary artery disease involving [place] coronary artery of [place] heart without angina pectoris , Preoperative testing Apply to affected area two times a day for 5 days. Please apply small amount to each nostril twice daily using Q-tip, starting 5 days prior to surgery and morning of surgery. 1 g 10/30/2024 11/04/2024 Active 24 hr oxybutynin chloride 10 mg extended release oral tablet (10 sources) Cholinergic Muscarinic Antagonist Start: 5 End: 5 take 1 tablet by mouth once daily oxybutynin ER (DITROPAN XL) 10 mg 24 hr tablet Take 1 tablet by mouth once daily. 30 tablet 5 09/19/2024 Active SITagliptin 100 mg oral tablet (20 sources) Dipeptidyl Peptidase 4 Inhibitor Start: 4 End: 4 take 1 tablet by mouth once daily SITagliptin phosphate (JANUVIA) 100 mg tablet Take 1 tablet by mouth once daily. 90 tablet 3 02/01/2024 Active Start: 11-04-2022 End: 10-27-2023 take 1 tablet by mouth once daily SITagliptin phosphate (JANUVIA) 100 mg tablet Take 1 tablet by mouth once daily. 90 tablet 07/27/2023 10/27/2023 Discontinued Comment on above: Take 1 tablet by fabian th once daily. 125 ml sodium chloride 9 mg/ml prefilled syringe (9 sources) Start: 10-04-2024 End: 10-04-2025 sodium chloride 0.9 %, flush, (BD POSIFLUSH) syringe Indications: Chronic systolic congestive heart failure (HCC) , Coronary artery disease involving [place] coronary artery of [place] heart without angina pectoris , Nonrheumatic mitral valve regurgitation , Preoperative testing , Encounter for screening for cardiovascular disorders Inject 2-10 mL intravenously as directed. For Echo procedure 10 mL 10/04/2024 10/04/2025 Active Completed/Discontinued Medications Medication Drug Class(es) Dates Sig (Normalized) Sig (Original) ascorbic acid 500 mg oral tablet (14 sources) Vitamin C Start: 09-10-2023 End: 03-17-2024 ascorbic acid, vitamin C, (VITAMIN C) 500 mg tablet Take one every other day with your iron tab. 90 tablet 3 09/10/2023 03/17/2024 Discontinued ferrous sulfate (SLOW FE) 137 mg (45 mg iron) TbER (14 sources) Start: 09-10-2023 End: 03-17-2024 ferrous sulfate (SLOW FE) 137 mg (45 mg iron) TbER Take one tab every over day with your Vit C tab 90 tablet 3 09/10/2023 03/17/2024 Discontinued Start: 09-10-2023 ferrous sulfat e (SLOW FE) 137 mg (45 mg iron) TbER Take one tab every over day with your Vit C tab 90 tablet 3 09/10/2023 Active furosemide 40 mg oral tablet (2 sources) Loop Diuretic Start: 12-06-2019 End: 04-16-2021 take 1 tablet by mouth once daily furosemide (LASIX) 40 mg tablet Take 1 tablet by mouth once daily. 90 tablet 1 12/06/2019 04/16/2021 Discontinued (Discontinued by Patient) 2 ml gentamicin 40 mg/ml injection (2 sources) Start: 02-29-2024 End: 02-29-2024 gentamicin 40 mg/mL 160 mg injection Start: 02-29-2024 End: 02-29-2024 inject 1 dose by intramuscular injection once 160 mg, INTRAMUSCULAR, ONCE, 1 dose, On Wed02/29/24 at 1330, Antimicrobial indication: Empiric, Infectious source(s): Urinary/renal levoFLOXacin 750 mg oral tablet (2 sources) Quinolone Antimicrobial Start: 02-29-2024 End: 02-29-2024 levoFLOXacin 750 mg tab(s) (LEVAQUIN) Start: 02-29-2024 End: 02-29-2024 take 1 dose by mouth once at mealtime 750 mg, ORAL, ONCE, 1 dose, On Wed02/29/24 at 1330, Administer 2 hours before or 2 hours after medications containing calcium, magnesium, aluminum, iron, or zinc (including antacids and sucralfate), and sevelamer. May be administered without regard to meals. Tube feedings should be held 1 hour before and 1 hour after administration., Antimicrobial indication: Empiric, Infectious source(s): Urinary/renal linagliptin 5 mg oral tablet (8 sources) Dipeptidyl Peptidase 4 Inhibitor Start: 04-16-2021 End: 11-04-2022 take 1 tablet by mouth once daily linaGLIPtin (TRADJENTA) 5 mg tab Take 1 tablet by mouth once daily. 90 tablet 1 04/01/2022 11/04/2022 Discontinued (Clinical Decision) Start: 12-06-2019 End: 01-26-2020 take 1 tablet by mouth once daily linaGLIPtin (TRADJENTA) 5 mg tab Take 1 tablet by mouth once daily. 90 tablet 1 12/06/2019 01/26/2020 Discontinued Comment on above: Take 1 tablet by fabian once daily. omega-3 fatty acids 1,000 mg cap (3 sources) Start: 07-23-19 End: 10-23-19 take 2 capsules by mouth once daily omega-3 fatty acids 1,000 mg cap Take 2 capsules by mouth once daily. 0 07/22/2016 10/22/2021 Discontinued Comment on above: Take 2 capsules by m out once daily. omeprazole 20 mg delayed release oral capsule (1 source) Proton Pump Inhibitor Start: 12-06-19 End: 12-12-19 take 1 capsule by mouth once daily before breakfast omeprazole (PRILOSEC) 20 mg capsule Take 1 capsule by mouth daily before breakfast. 1/2 hr before meal. 90 capsule 1 12/06/2019 12/12/2019 Discontinued (Medical Contraindication) pantoprazole 20 mg delayed release oral tablet (1 source) Proton Pump Inhibitor Start: 12-12-19 End: 04-16-19 take 1 tablet by mouth once daily pantoprazole DR (PROTONIX) 20 mg tablet Indications: Gastroduodenitis , Gastroesophageal reflux disease with esophagitis without hemorrhage Take 1 tablet by mouth once daily. 90 tablet 3 12/12/2019 04/16/2021 Discontinued (Cost of medication) perflutren lipid microspheres 1.1 mg/mL 1.3 mL injection (DEFINITY) (2 sources) Start: 09-06-19 End: 09-06-19 perflutren lipid microspheres 1.1 mg/mL 1.3 mL injection (DEFINITY) Start: 09-05-2024 End: 09-05-2024 1.3 mL, INTRAVENOUS, ONCE, 1 dose, On Wed09/05/24 at 1400, Perflutren must be activated prior to administration. Once activated: 1. Diluted IV Bolus: Dilute 1.3 mL of Definity with 8.7 mL of preservative-free saline 2. Undiluted IV Bolus: Administer undiluted Definity followed by a preservative-free 10 mL saline flush. predniSONE 5 mg oral tablet (6 sources) Start: 05-10-2014 End: 05-26-2024 Prednisone 5 MG tablet Discontinued 0 mg PO DAILY May 10, 2014 12:00am May 26, 2024 11:25am Please contact the information source for Taper Schedule details. regadenoson 0.4 mg injection (LEXISCAN) (2 sources) Start: 09-05-2024 End: 09-05-2024 regadenoson 0.4 mg injection (LEXISCAN) Start: 09-05-2024 End: 09-05-2024 0.4 mg, INTRAVENOUS, ONCE, 1 dose, On Wed09/05/24 at 1500, Give 0.4 mg (5 mL) over ~10 seconds, followed immediately by a 5 mL saline flush. Wait 10-20 seconds, then administer the radionuclide myocardial perfusion imaging agent. triamcinolone acetonide 0.48180 mg/mg topical ointment (2 sources) Corticosteroid Start: 03-19-2016 End: 04-16-2021 triamcinolone (KENALOG) 0.025 % ointment Indications: Irritant contact dermatitis, unspecified trigger Apply 1 application to affected area three times daily. 35 g 03/19/2016 04/16/2021 Discontinued Problems Active Problems Problem Classification Problem Date Documented Date Episodic/Chronic Anxiety disorders (20 sources) Mixed anxiety and depressive disorder; Translations: [Other specified anxiety disorders] Onset: 03-06-2015 Chronic Cancer of prostate (20 sources) Malignant tumor of prostate; Translations: [Malignant neoplasm of prostate] Onset: 03-03-2024 03-14-2024 Chronic Cataract (20 sources) Bilateral senile combined form cataracts of eyes; Translations: [Combined forms of age-related cataract, bilateral] Onset: 10-12-2014 Resolved: 06-10-2017 06-10-2017 Chronic Chronic obstructive pulmonary disease and bronchiectasis (20 sources) Emphysematous bronchitis; Translations: [Chronic obstructive pulmonary disease, unspecified] Onset: 03-13-2015 Chronic Chronic obstructive pulmonary disease and bronchiectasis (1 source) Chronic obstructive pulmonary disease and bronchiectasis; Translations: [COPD with chronic bronchitis (HCC)] Onset: 03-13-2015 Congestive heart failure; nonhypertensive (20 sources) Congestive heart failure; Translations: [Heart failure, unspecified] Onset: 03-13-2015 Resolved: 09-20-2024 Chronic Coronary atherosclerosis and other heart disease (20 sources) Coronary atherosclerosis; Translations: [Atherosclerotic heart disease of [place] coronary artery without angina pectoris] Onset: 05-14-2014 Chronic Diabetes mellitus with complications (20 sources) Type II diabetes mellitus uncontrolled; Translations: [Type 2 diabetes mellitus with hyperglycemia] Onset: 07-18-2015 Chronic Diabetes mellitus without complication (20 sources) Diabetes mellitus type 2 without retinopathy; Translations: [Type 2 diabetes mellitus without complications] Onset: 10-12-2014 Chronic Disorders of lipid metabolism (20 sources) Mixed hyperlipidemia; Translations: [Mixed hyperlipidemia] Onset: 09-13-2012 Chronic Esophageal disorders (20 sources) Gastroesophageal reflux disease without esophagitis; Translations: [Gastro-esophageal reflux disease without esophagitis] Onset: 03-13-2015 Chronic Essential hypertension (20 sources) Essential hypertension; Translations: [Essential (primary) hypertension] Onset: 09-19-2018 Chronic Heart valve disorders (9 sources) Non-rheumatic mitral regurgitation ; Translations: [Nonrheumatic mitral (valve) insufficiency] Onset: 09-26-2024 10-04-2024 Chronic Nonspecific chest pain (6 sources) Chest discomfort; Translations: [Other chest pain] 05-10-2014 Episodic Osteoarthritis (20 sources) Bilateral arthritis of knees; Translations: [Bilateral primary osteoarthritis of knee] Onset: 12-12-2019 12-12-2019 Chronic Other acquired deformities (2 sources) Kyphosis deformity of spine; Translations: [Unspecified kyphosis, site unspecified] 09-14-2024 Chronic Other acquired deformities (8 sources) Lumbar spondylolisthesis; Translations: [Spondylolisthesis, lumbar region] 07-04-2024 Episodic Other acquired deformities (1 source) Spondylolisthesis, lumbar region; Translations: [Spondylolisthesis, lumbar region] Onset: 09-14-2024 Episodic Other aftercare (1 source) Radiotherapy follow-up; Translations: [Encounter for follow-up examination after completed treatment for conditions other than malignant neoplasm] 06-30-2024 Episodic Other connective tissue disease (15 sources) Pain in lower limb; Translations: [Pain in leg, unspecified] 04-20-2024 Episodic Other eye disorders (20 sources) Bilateral vitreous floaters; Translations: [Other vitreous opacities, bilateral] Onset: 10-12-2014 11-20-2015 Chronic Other injuries and conditions due to external causes (1 source) Injury of right hand; Translations: [Unspecified injury of right wrist, hand and finger(s), sequela] 03-17-2024 Episodic Other liver diseases (6 sources) Enzyme level - finding; Translations: [Abnormal serum enzyme level, unspecified] 05-10-2014 Episodic Other liver diseases (7 sources) Alkaline phosphatase raised; Translations: [Abnormal levels of other serum enzymes] Onset: 10-26-2024 10-26-2024 Episodic Other liver diseases (1 source) Abnormal levels of other serum enzymes; Translations: [Elevated alkaline phosphatase level] Onset: 10-31-2024 Episodic Other nervous system disorders (20 sources) Carpal tunnel syndrome of right wrist; Translations: [Carpal tunnel syndrome, right upper limb] Onset: 10-27-2013 02-17-2021 Chronic Other nervous system disorders (17 sources) Carpal tunnel syndrome; Translations: [Carpal tunnel syndrome, unspecified upper limb] 04-21-2024 Chronic Comment on above: Right side with then ar atrophy Other nervous system disorders (1 source) Carpal tunnel syndrome, unspecified upper limb; Translations: [Carpal tunnel syndrome, unspecified upper limb] Onset: 06-15-2024 Chronic Other nervous system disorders (1 source) Paresthesia of hand ; Translations: [Anesthesia of skin] 03-17-2024 Episodic Other non-traumatic joint disorders (1 source) Pain in right knee; Translations: [Pain in joint, lower leg] 12-12-2019 Episodic Other non-traumatic joint disorders (1 source) Bilateral chronic pain of upper limbs; Translations: [Pain in right shoulder] 03-17-2024 Episodic Other nutritional; endocrine; and metabolic disorders (20 sources) Obese class II; Translations: [Obesity, unspecified] Onset: 05-13-2017 Chronic Other nutritional; endocrine; and metabolic disorders (9 sources) Obese class I; Translations: [Obesity, Class I, BMI 30-34.9] Onset: 09-26-2024 09-26-2024 Chronic Other screening for suspected conditions (not mental disorders or infectious disease) (20 sources) Raised prostate specific antigen; Translations: [Elevated prostate specific antigen [PSA]] Onset: 01-26-2019 Resolved: 09-20-2024 Episodic Peripheral and visceral atherosclerosis (12 sources) Intermittent claudication; Translations: [Peripheral vascular disease, unspecified] Onset: 09-14-2024 05-26-2024 Chronic Spondylosis; intervertebral disc disorders; other back problems (20 sources) Degeneration of cervical intervertebral disc; Translations: [Other cervical disc degeneration, unspecified cervical region] Onset: 11-20-2015 11-20-2015 Chronic Substance-related disorders (20 sources) Smoker; Translations: [Nicotine dependence, unspecified, uncomplicated] Onset: 03-13-2015 Chronic Unclassified (1 source) Unknown / UNK(Unknown) Onset: 03-06-2015 Unclassified (8 sources) Pain of lower extremity; Translations: [M79.606 - Pain in leg, unspecified] Unclassified (1 source) Low back pain, unspecified; Translations: [Low back pain, unspecified] Onset: 07-04-2024 Unclassified (10 sources) Autogenerated Problem Onset: 10-09-2024 10-09-2024 Unclassified (1 source) OPENED IN ERROR 10-31-2024 Unclassified (1 source) Degeneration of intervertebral disc of lumbar region with discogenic back pain and lower extremity pain; Translations: [Degeneration of intervertebral disc of lumbar region with discogenic back pain and lower extremity pain] Onset: 09-17-2024 Unclassified (1 source) Obesity, Class II, BMI 35-39.9; Translations: [Obesity, Class II, BMI 35-39.9] Onset: 09-19-2018 Unclassified (1 source) Established Patient Onset: 10-30-2024 Past or Other Problems Problem Classification Problem Date Documented Da te Episodic/Chronic Administrative/social admission (20 sources) Advance directive discussed with patient; Translations: [Other specified counseling] Onset: 10-22-2021 Episodic Cardiac dysrhythmias (20 sources) Tachycardia; Translations: [Tachycardia, unspecified] Onset: 10-30-2014 03-06-2015 Episodic Coronary atherosclerosis and other heart disease (20 sources) Drug coated stent in anterior descending branch of left coronary artery; Translations: [Presence of coronary angioplasty implant and graft] Onset: 05-25-2014 03-06-2015 Episodic Deficiency and other anemia (20 sources) Iron deficiency anemia; Translations: [Iron deficiency anemia, unspecified] Onset: 09-26-2019 Episodic Deficiency and other anemia (1 source) Iron deficiency anemia, unspecified; Translations: [Iron deficiency anemia, unspecified iron deficiency anemia type] Onset: 12-06-2019 Episodic E Codes: Natural/environment (1 source) Bitten by dog, initial encounter; Translations: [Bitten by dog, initial encounter] Onset: 06-15-2024 Episodic Open wounds of extremities (18 sources) Dog bite of hand; Translations: [Open bite of unspecified hand, initial encounter] Onset: 06-15-2024 04-21-2024 Episodic Comment on above: Right volar/radial p lorena, between index and long finger metacarpals Other aftercare (20 sources) Patient encounter status; Translations: [Other group home (current) drug therapy] Onset: 12-29-2016 04-16-2021 Episodic Other connective tissue disease (1 source) Pain in leg, unspecified; Translations: [Pain in leg, unspecified] Onset: 06-15-2024 Episodic Other connective tissue disease (1 source) Pain in right hand; Translations: [Pain in right hand] Onset: 05-15-2024 Episodic Other eye disorders (20 sources) Scar of cornea of right eye; Translations: [Unspecified corneal scar and opacity] Onset: 07-18-2020 10-22-2021 Episodic Other eye disorders (20 sources) Tear film insufficiency; Translations: [Dry eye syndrome of bilateral lacrimal glands] Onset: 07-18-2020 10-22-2021 Episodic Other lower respiratory disease (20 sources) Dyspnea; Translations: [Shortness of breath] Onset: 07-28-2024 Resolved: 09-20-2024 05-10-2014 Episodic Other male genital disorders (20 sources) Disorder of prostate; Translations: [Disorder of prostate, unspecified] Onset: 11-03-2017 11-03-2017 Episodic Other nervous system disorders (1 source) Anesthesia of skin; Translations: [Anesthesia of skin] Onset: 05-18-2024 Episodic Other nervous system disorders (1 source) Paresthesia of skin; Translations: [Paresthesia of skin] Onset: 05-18-2024 Episodic Residual codes; unclassified (20 sources) Active living will ; Translations: [Other specified health status] Onset: 10-22-2021 Episodic Residual codes; unclassified (1 source) Pain, unspecified; Translations: [Pain, unspecified] Onset: 05-18-2024 Episodic Spondylosis; intervertebral disc disorders; other back problems (20 sources) Neck pain; Translations: [Cervicalgia] Onset: 10-04-2013 11-20-2015 Episodic Unclassified (1 source) Tachycardia, unspecified Onset: 02-23-2017 Unclassified (8 sources) Patient encounter status 10-04-2024 Results Test Name Value Interpretation Reference Range Facility US ABD RIGHT UPPER QUADRANTo n 11-20-2024 US ABD RIGHT UPPER QUADRANT * * *Final Report* * * DATE OF EXAM: Nov 20 2024 3:34PM WRU 1032 - US ABD RIGHT UPPER QUADRANT / PROCEDURE REASON: Elevated alkaline phosphatase level * * * * Physician Interpretation * * * * EXAMINATION: RIGHT UPPER QUADRANT ULTRASOUND CLINICAL HISTORY: Elevated alkaline phosphatase level TECHNIQUE: Sonography of the right upper quadrant was performed. Images were obtained and stored in a permanent archive and interpreted remotely. MQ: [id number] COMPARISON: Correlation made to visualized abdomen from CT chest dated 10/20/2024 RESULT: Pancreas: Normal sonographic appearance. Portions obscured: tail Liver: Echotexture: Normal, homogeneous. Echogenicity: Increased compatible with hepatic steatosis with sparing near the gallbladder fossa Surface contour: Mildly nodular Lesions: 1.3 cm simple left hepatic cyst. Biliary: No intrahepatic biliary duct dilation. CBD: 0.3 cm at the hilum. Gallbladder: Normal caliber -Contents: No cholelithiasis -Wall: Normal -Other: No pericholecystic fluid. Right Kidney: Normal cortical echogenicity. No hydronephrosis. Ascites: None. IMPRESSION: 1. Hepatic steatosis with mildly nodular hepatic contour suspect for cirrhosis. 2. Simple left hepatic cyst. Biological Sciences Professor: EVELIA Transcribe Date/Time: Nov 21 2024 8:23A Dictated by : ZACH DAY MD This examination was interpreted and the report reviewed and electronically signed by: ZACH DAY MD on Nov 21 2024 8:25AM EST [id number] Normal [facility] CNOVon 11-16-2024 CNOV Office Visit (KASH ) VICTOR HUGO SHETH ([id number]) 1950 M Date Time Provider Department 11/16/24 8:00 AM JORDEN HARTMANN During your visit today, we recorded the following information about you: Pulse Respiration Blood pressure Weight 104/minute 18/minute 126/72 101 kg Jorden Hartmann MD 11/16/2024 9:01 PM Signed Chief Complaint Patient presents with: Follow Up HPI Victor Hugo Sheth is a 74 year old male who presents here today for a follow up. Patient here today for a follow up. Recent Intracoronary stent placed on 11/09/24 at [facility] due to NSTEMI. Victor Hugo Sheth is a 74-year-old male follow-up after a recent stent placement. Victor Hugo presents for follow-up after a recent stent placement. He reports experiencing heartburn over the past few days and has been using Vaishali-Carmel for relief, but was advised to discontinue its use. He denies any fevers, dyspnea, wheezing, cough, hemoptysis, chest pain, palpitations, or lower extremity edema since the procedure. He also reports multiple areas of pain, including the wrists, neck, lower back, and knees, which have been affecting his sleep. He has been using Tylenol and Advil for pain management, but notes that these medications are no longer effective and he is concerned about potential kidney issues. He inquires about alternative pain management options. Past medical history, appointments, medications, allergies reviewed. Previous Medical History PAST MEDICAL HISTORY Diagnosis Date Advance directive discussed with patient 10/22/2021 Discussed 09/2021 Arthritis of both knees 12/12/2019 CAD (coronary artery disease), [place] coronary artery 05/14/[address] Khalil [facility] 05/14/[address] [facility] report from [facility], showed 85% stenosis in pLAD followed by 95% stenosis and 50-75% stenosis in mid LAD. Minimal disease in LCx and LCA. RCA with proximal and distal 25% stenosis. [facility] 05/17 s/p YESENIA x2 to LAD Plan: Dc home with follow-up Continue Plavix Carpal tunnel syndrome of right wrist 10/27/2013 EMG/NCT 10/27/13=mild right CTS Chronic systolic congestive heart failure (HCC) 03/13/2015 08/02/2018: Home BP Cuff Validated. Home BP: 118/71 Office BP: 116/72 Combined forms of age-related cataract of both eyes 06/15/2016 Combined forms of age-related cataract, bilateral 06/15/2016 Congestive heart failure (HCC) 03/13/2015 COPD with chronic bronchitis (HCC) 03/13/2015 Corneal scar, right eye 07/18/2020 DDD (degenerative disc disease), cervical DDD (degenerative disc disease), lumbar 12/07/2019 Depression with anxiety Diabetic eye exam ([facility]) 05/15/2015 Last done 06/27/2018: no retinopathy. Dry eye syndrome of both eyes 07/18/2020 Elevated alkaline phosphatase level 10/26/2024: GGT, microcardial Ab Neg. Liver portion elevated: Elevated PSA 01/26/2019 Encounter for Medicare annual wellness exam 11/17/2017 Medicare Part B: 12/23/2016 last done: 09/10/2023 Does not want ELMO or colonoscopy Essential hypertension 09/19/2018 Gastroesophageal reflux disease without esophagitis 03/13/2015 History of compression fracture of spine 1971 high school football History of non-ST elevation myocardial infarction (NSTEMI) 11/16/2024 S/p PCI w/ YESENIA to proximal LAD 10/2024 Iron deficiency anemia 09/26/2019 Iron deficiency anemia 09/26/2019 EGD and colonoscopy done 10/2019 Ischemic cardiomyopathy 05/25/2014 Leukocytosis 09/19/2018 Repeat 10/2018 ok Living will in place 10/22/2021 DPA: Jon (son) Medicare annual wellness visit, initial 11/17/2017 Medicare Part B: 12/23/2016 last done: 01/26/2019 Does not want LEMO or colonoscopy Mixed hyperlipidemia 09/13/2012 Neck pain 10/04/2013 Obesity, Class I, BMI 30-34.9 09/26/2024 Obesity, Class II, BMI 35-39.9 05/13/2017 Presence of drug coated stent in LAD coronary artery 05/25/2014 Prostate cancer (HCC) 03/03/2024 Smoker 03/13/2015 Started at 20 yo up to 2 PPD. as of 02/2015 only 5 cigs a day Tachycardia 10/30/2014 Thrombocytosis 09/19/2018 Repeat 10/2018 ok Type 2 diabetes mellitus with diabetic neuropathy, without long-term current use of insulin (HCC) 11/20/2015 Type 2 diabetes mellitus without retinopathy (HCC) 10/12/2014 Vitreous floaters of both eyes 10/12/2014 Previous Surgical History PAST SURGICAL HISTORY Procedure Laterality Date COLONOSCOPY FLX DX W/COLLJ SPEC WHEN PFRMD 11/16/2019 Colonoscopy ESOPHAGOGASTRODUODENOSCOPY TRANSORAL DIAGNOSTIC 11/16/2019 EGD HEART CATHETERIZATION 05/14/2014 triple vessel disease, YESENIA x 2 to the prox and mid LAD IMMUNOCHEMICAL FECAL OCCULT BLOOD TEST 03/08/2019 negative PAST SURGICAL HISTORY OF 1971 vertebral fracture in football? no repair. PAST SURGICAL HISTORY OF N/A 11/09/2024 Intracoronary stent placed - [facility] REPAIR FINGER TENDON left hand- cut tendons with chain saw TONSILLECTOMY AND DAVIDA (more content not included)... Normal [facility] Basic metabolic 2000 panelon 11-10-2024 Anion gap [Moles/Vol] 12 mmol/L Normal - [facility] Comment on above: Order Comment: Speci men Type: BLOOD SPECIMEN Ordering Facility: [facility] Address: [facility] [place] [address] Performed By: #### 2 4321-2 #### [facility] CLIA [id number] [address] [place] Calcium [Mass/Vol] 8.9 mg/dL Normal 8.5-10.2 [facility] Comment on above: Order Comment: Speci men Type: BLOOD SPECIMEN Ordering Facility: [facility] Address: [address] [place] [address] Performed By: #### 2 4321-2 #### [facility] CLIA [id number] [address] [place] Chloride [Moles/Vol] 102 mmol/L Normal 98-107 [facility] Comment on above: Order Comment: Speci men Type: BLOOD SPECIMEN Ordering Facility: [facility] Address: [address] [place] [address] Performed By: #### 2 4321-2 #### [facility] CLIA [id number] [address] [place] CO2 [Moles/Vol] 24 mmol/L Normal 22-30 [facility] Comment on above: Order Comment: Speci men Type: BLOOD SPECIMEN Ordering Facility: [facility] Address: [address] [place] [address] Performed By: #### 2 4321-2 #### [facility] CLIA [id number] [address] [place] Creatinine [Mass/Vol] 0.90 mg/dL Normal 0.73-1.22 [facility] Comment on above: Order Comment: Speci men Type: BLOOD SPECIMEN Ordering Facility: [facility] Address: [address] [place] [address] Performed By: #### 2 4321-2 #### [facility] CLIA [id number] [address] [place] eGFRcr SerPlBld CKD-EPI 2020 91 mL/min/1.73m??? Normal >=60 [facility] Comment on above: Order Comment: Speci men Type: BLOOD SPECIMEN Ordering Facility: [facility] Address: [address] [place] [address] Result Comment: Apple mated Glomerular Filtration Rate (eGFR) is calculated using the 2020 CKD-EPI creatinine equation. This equation utilizes serum creatinine, sex, and age as parameters. The creatinine assay has traceable calibration to isotope dilution-mass spectrometry. Refer to KDIGO guidelines for clinical interpretation. In patients with unstable renal function, e.g. those with acute kidney injury, the eGFR may not accurately reflect actual GFR. Performed By: #### 2 4321-2 #### [facility] CLIA [id number] 1 [place] [address] [place] Glucose [Mass/Vol] 157 mg/dL High 74-99 [facility] Comment on above: Order Comment: Brian curry Type: BLOOD SPECIMEN Ordering Facility: [facility] Address: [address] [place] [address] Result Comment: The [place] Diabetes Association (ADA) provides guidance for cutoff values for fasting glucose and random glucose. The ADA defines fasting as no caloric intake for at least 8 hours. Fasting plasma glucose results between 100 to 125 mg/dL indicate increased risk for diabetes (prediabetes). Fasting plasma glucose results greater than or equal to 126 mg/dL meet the criteria for diagnosis of diabetes. In the absence of unequivocal hyperglycemia, results should be confirmed by repeat testing. In a patient with classic symptoms of hyperglycemia or hyperglycemic crisis, random plasma glucose results greater than or equal to 200 mg/dL meet the criteria for diagnosis of diabetes. Reference: Standards of Medical Care in Diabetes 2016, [place] Diabetes Association. Diabetes Care. 2016.39(Suppl 1). Performed By: #### 2 4321-2 #### [facility] CLIA [id number] 1 [place] [address] [place] Potassium [Moles/Vol] 4.5 mmol/L Normal 3.7-5.1 [facility] Comment on above: Order Comment: Brian curry Type: BLOOD SPECIMEN Ordering Facility: [facility] Address: [address] [place] [id number] Performed By: #### 2 4321-2 #### [facility] CLIA [id number] [address] [place] [address] [place] Sodium [Moles/Vol] 138 mmol/L Normal 136-144 [facility] Comment on above: Order Comment: Speci men Type: BLOOD SPECIMEN Ordering Facility: [facility] Address: [address] [place] [address] Performed By: #### 2 4321-2 #### [facility] CLIA [id number] [address] STATES OF [facility] Urea nitrogen [Mass/Vol] 21 mg/dL Normal 9-24 [facility] Comment on above: Order Comment: Speci men Type: BLOOD SPECIMEN Ordering Facility: [facility] Address: [address] [place] [address] Performed By: #### 2 4321-2 #### [facility] CLIA [id number] [address] OF [facility] CBC panel Auto (Bld)on 11-10 Erythrocyte distribution width (RBC) [Ratio] 14.1 % Normal 11.5-15.0 [facility] Comment on above: Order Comment: Speci men Type: BLOOD SPECIMENOrdering Facility: [facility] Address: [address] [place] [address] Performed By: #### 5 8410-2 ####[facility] [id number] [address] STATES OF [facility] Hematocrit (Bld) [Volume fraction] 42.9 % Normal 39.0-51.0 [facility] Comment on above: Order Comment: Speci men Type: BLOOD SPECIMENOrdering Facility: [facility] Address: [address] [place] [address] Performed By: #### 5 8410-2 ####[facility] [id number] [address] STATES OF [facility] Hemoglobin (Bld) [Mass/Vol] 14.0 g/dL Normal 13.0-17.0 [facility] Comment on above: Order Comment: Speci men Type: BLOOD SPECIMENOrdering Facility: [facility] Address: [address] [place] [address] Performed By: #### 5 8410-2 ####[facility] [id number] [address] MCH (RBC) [Entitic mass] 29.5 pg Normal 26.0-34.0 [facility] Comment on above: Order Comment: Speci men Type: BLOOD SPECIMENOrdering Facility: [facility] Address: [address] [place] [address] Performed By: #### 5 8410-2 ####[facility] [id number] [address] MCHC (RBC) [Mass/Vol] 32.6 g/dL Normal 30.5-36.0 [facility] Comment on above: Order Comment: Speci men Type: BLOOD SPECIMENOrdering Facility: [facility] Address: [address] [place] [address] Performed By: #### 5 8410-2 ####[facility] [id number] [address] MCV (RBC) [Entitic vol] 90.3 fL Normal 80.0-100.0 [facility] Comment on above: Order Comment: Speci men Type: BLOOD SPECIMENOrdering Facility: [facility] Address: [address] [place] [address] Performed By: #### 5 8410-2 ####[facility] [id number] [address] Nucleated RBC (Bld) [#/Vol] 10*3/uL Normal <0.01 [facility] Comment on above: Order Comment: Speci men Type: BLOOD SPECIMENOrdering Facility: [facility] Address: [address] [place] [address] Performed By: #### 5 8410-2 ####[facility] [id number] [address] Platelet mean volume (Bld) [Entitic vol] 8.7 fL Low 9.0-12.7 [facility] Comment on above: Order Comment: Speci men Type: BLOOD SPECIMENOrdering Facility: [facility] Address: [address] [place], [place] [address] Performed By: #### 5 8410-2 ####[facility] [id number] [place] [id number] [facility] Platelets (Bld) [#/Vol] 384 10*3/uL Normal 150-400 [facility] Comment on above: Order Comment: Speci men Type: BLOOD SPECIMENOrdering Facility: [facility] Address: [address] [place] [address] Performed By: #### 5 8410-2 ####[facility] [id number] [address] OF [facility] RBC (Bld) [#/Vol] 4.75 10*6/uL Normal 4.20-6.00 [facility] Comment on above: Order Comment: Speci men Type: BLOOD SPECIMENOrdering Facility: [facility] Address: [address] [place] [address] Performed By: #### 5 8410-2 ####[facility] [id number] [address] WBC (Bld) [#/Vol] 9.29 10*3/uL Normal 3.70-11.00 [facility] Comment on above: Order Comment: Speci men Type: BLOOD SPECIMENOrdering Facility: [facility] Address: [address] [place] [address] Performed By: #### 5 8410-2 ####[facility] [id number] [address] CNDSon 11-10-2024 CNDS HNO ID: [id number] Author: BEBETO CLARK MD Service: Cardiovascular Medicine Author Type: Physician Type: Discharge Summary Filed: 11/15/2024 18:32 Note Text: DISCHARGE SUMMARY PATIENT NAME: Victor Hugo Sheth ADMISSION DATE: 11/09/2024 DISCHARGE DATE: 11/10/2024 ATTENDING PHYSICIAN: Bebeto Clark MD Code Status: Full Code Highest Readmission Risk Score: 13 The 30 day readmissions risk score is derived from an internally validated risk model which evaluates patient level characteristics, utilization history, medication orders and lab results up until the day of discharge. Patients with a score of 39 or above are considered highest risk for readmission. Specific patient level drivers will be listed at the bottom of the summary. CONSULTING TEAMS DURING HOSPITALIZATION: None Treatment Team: Attending Provider: Bebeto Clark MD Consulting: Bebeto Clark MD Consulting: Jorden Hartmann MD REASON FOR HOSPITALIZATION: Elective PCI FINAL DIAGNOSIS: Active Hospital Problems Diagnosis POA Ischemic cardiomyopathy Yes Resolved Hospital Problems No resolved problems to display. OPERATIONS DURING HOSPITALIZATION: None PROCEDURES DURING HOSPITALIZATION: PCI HOSPITAL COURSE: Patient was admitted to hospital for elective PCI w/ YESENIA to proximal LAD. Tolerated procedure well. Transitions of Care Critical Issues: None LABS AND PROCEDURES PENDING AT DISCHARGE: No pending results. PATIENT CONDITION AT DISCHARGE: Stable DISCHARGE DISPOSITION: Home with Self Care INFORMATION PROVIDED TO PATIENT: WOUND/SURGICAL SITE CARE: None DIET: Resume your pre-hospital diet ACTIVITY: Resume pre-hospital activity ALLERGIES Allergen Reactions Rybelsus [Semagluti* Diarrhea DISCHARGE MEDICATION: Medication List START taking these medications nitroglycerin sublingual 0.4 mg SL tablet Commonly known as: NITROQUICK Dissolve 1 tablet under the tongue every 5 minutes as needed for chest pain. sacubitril-valsartan 24-26 mg tablet Commonly known as: ENTRESTO Take 1 tablet by mouth two times a day. ticagrelor 90 mg tablet Commonly known as: BRILINTA Take 1 tablet by mouth two times a day. CHANGE how you take these medications aspirin, enteric coated 81 mg EC tablet Commonly known as: ASPIRIN, ENTERIC COATED Take 1 tablet by mouth once daily. What changed: when to take this additional instructions CONTINUE taking these medications albuterol HFA 90 mcg/actuation inhaler Commonly known as: PROVENTIL HFA, VENTOLIN HFA Inhale 2 Puffs as instructed every 4 hours as needed. atorvastatin 80 mg tablet Commonly known as: LIPITOR Take 1 tablet by mouth daily at bedtime. blood sugar diagnostic test strip Commonly known as: BLOOD GLUCOSE TEST Test blood sugar(s) 2 times daily. Dx: Other DM Code E11.42 Insulin: No Blood-Glucose Meter Test Blood Sugars 2 times daily Dx E11.42 Insulin: No empagliflozin 25 mg tablet Commonly known as: JARDIANCE Take 1 tablet by mouth daily with breakfast. ezetimibe 10 mg tablet Commonly known as: ZETIA Take 1 tablet by mouth once daily. glimepiride 4 mg tablet Commonly known as: AMARYL Take 1 tablet by mouth two times a day with meals. Lancets Test blood sugar(s) 2 times daily. Dx: Other DM Code E11.42 Insulin: No metFORMIN 1,000 mg tablet Commonly known as: GLUCOPHAGE Take 1 tablet by mouth two times a day with meals. metoprolol succinate ER 50 mg 24 hr tablet Commonly known as: TOPROL XL Take 1 tablet by mouth once daily. oxybutynin ER 10 mg 24 hr tablet Commonly known as: DITROPAN XL Take 1 tablet by mouth once daily. SITagliptin phosphate 100 mg tablet Commonly known as: JANUVIA Take 1 tablet by mouth once daily. sodium chloride 0.9 % (flush) syringe Commonly known as: BD POSIFLUSH Inject 2-10 mL intravenously as directed. For Echo procedure STOP taking these medications FREESTYLE ADRIAN 10 DAY READER Generic drug: flash glucose scanning reader FREESTYLE ADRIAN 10 DAY SENSOR Kit Generic drug: flash glucose sensor lisinopril 10 mg tablet Commonly known as: ZESTRIL metoprolol tartrate (short acting) 25 mg tablet Commonly known as: LOPRESSOR Where to Get Your Medications These medications were sent to [facility] [address] [place] [address] Hours: Wednesday-Wednesday, 8am-7pm, Wednesday 9am-1pm aspirin, enteric coated 81 mg EC tablet nitroglycerin sublingual 0.4 mg SL tablet sacubitril-valsartan 24-26 mg tablet ticagrelor 90 mg tablet FUTURE APPOINTMENTS: Follow Up Appointments Follow-up Appointment When: In 6 weeks Patient/Parents to call for appointment?: Yes Bebeto Clark MD [phone] [place] [address] [place] [address] PCP Requested Referral Follow-up Appointment When: In 1 week Patient/Parents to call for appointment?: Yes Jorden Hartmann MD [phone] (more content not included)... Normal [facility] ECHO WITH AGITATED SALINE CO NTRASTon 11-10-2024 ECHO WITH AGITATED SALINE CONTRAST Echocardiography Report: Transthoracic Echo [facility] Date of service: 11/10/2024 8:06:[facility] Ordering physician: BEBETO CLARK Exam indication: Evaluation of known heart failure to guide therapy Technologist: Marv Clark [facility] Interpreting physician: Kesha Gutierrez MD PATIENT: Name: MR. VICTOR HUGO SHETH : 1950 Age: 74 years Gender: M History of heart failure with hospitalization, hypertension, diabetes mellitus and coronary artery disease. Previous cardiovascular interventions: PCI (05/14/2014, 11/09/2024) Primary rhythm: sinus. Height: 170.20 cm BSA: 2.20 m Weight: 102.40 kg BMI: 35.3 kg/m Heart rate 96 bpm Blood pressure 141/79 mmHg Technically difficult exam due to body habitus. Color Doppler was utilized to interrogate the cardiac valves assessed and spectral Doppler was utilized to determine the flow velocities and pressure gradients reported in this exam. MEASUREMENTS: Value Indexed Normal LV ID (diastole) 6.7 cm (2D) 3.04 cm/m LV ID (systole) 6.2 cm (2D) 2.81 cm/m IVS, leaflet tips 1.0 cm (2D) Posterior wall thickness 0.8 cm (2D) Left ventricular mass 261 g (2D) 119 g/m LV stroke volume 50 ml (2D biplane) LV end diastolic volume 217 ml (2D biplane) 98.5 ml/m 34<=EDVi<75 LV end systolic volume 167 ml (2D biplane) 76.0 ml/m Ejection Fraction 23 % (2D biplane) EF > 52 FINDINGS: LEFT VENTRICLE The left ventricle is moderately dilated. Left ventricular systolic function is severely decreased globally. Left ventricular diastolic function was not evaluated due to E/A fusion. Definity contrast used for endocardial border detection. Wall Motion: The entire anterior wall, entire lateral wall, entire septum, entire apex, and entire inferior wall are severely hypokinetic. RIGHT VENTRICLE The right ventricle is normal in size. Right ventricular systolic function is normal. RV systolic tissue Doppler velocity is 15.9 cm/s. Tricuspid annular displacement is 1.9 cm. Estimated right ventricular systolic pressure is not reported due to an insufficient tricuspid regurgitation signal. Estimated right atrial pressure is 3 mmHg based on IVC assessment. RIGHT ATRIUM Inferior Vena Cava: The inferior vena cava appears normal measuring 1.3 cm. The vessel decreases greater than 50 percent with inspiration. MITRAL VALVE The mitral valve leaflets are structurally normal. There is trace (trace - 1+) mitral valve regurgitation. TRICUSPID VALVE The tricuspid valve leaflets are structurally normal. There is trace tricuspid valve regurgitation. AORTIC VALVE There is no aortic valve regurgitation. Tricuspid aortic valve. There is mild thickening. PULMONIC VALVE PERICARDIUM There is no pericardial effusion. There is an epicardial fat pad. CONCLUSIONS: - Technically difficult exam due to body habitus. - Exam indication: Evaluation of known heart failure to guide therapy - The left ventricle is moderately dilated. Left ventricular systolic function is severely decreased. EF = 23 5% (2D biplane) Definity contrast used for endocardial border detection. Left ventricular diastolic function was not evaluated due to E/A fusion. - The right ventricle is normal in size. Right ventricular systolic function is normal. -No significant valvular abnormalities. - Negative agitated saline study performed on prior ISABELLE(10/26/24). - Exam was compared with the prior CC ISABELLE exam performed on 10/26/2024. * * * Final * * * CC [employer] : [id number] [facility] NURSING PROGon 11-10-2024 NURSING PROG HNO ID: [id number] Author: EMILY SANDOVAL RN Service: Nursing Author Type: Registered Nurse Type: Nursing Progress Note Filed: 11/10/2024 16:38 Note Text: Transfer Note: PATIENT NAME: Victor Hugo Sheth Patient Location: [place] [id number] 1 Room: [place] [address] Patient discharged per order. Education provided. AVS reviewed and provided to patient. All questions answered to patient satisfaction. Patient belongings with patient. Normal [facility] PT EDon 11-10-2024 PT ED HNO ID: [id number] Author: SHAILESH ASTUDILLO [facility] Service: Pharmacy Author Type: Pharmacist Type: Patient Education Filed: 11/10/2024 13:45 Note Text: Pharmacy Medication Education Patient Name:Juanita Sheth Service Date: 11/10/2024 Service Time: 1:31 PM Patient had PCI completed on 11/09/2024 with the placement of drug-eluting stents. He will be discharged on aspirin and Brillinta for DAPT therapy. Co-pay was checked and Brillinta is $0 per month. ECHO (11/10/24) shows LVEF of 23%. Patient's home lisinopril will be discontinued and switched to losartan (possible switch to Entresto as an outpatient - monthly cost on test bill was $0). Patient will continue taking atorvastatin, jardiance, zetia, and metoprolol succinate at discharge. Medication Education Provided: 1. Reason for taking medications and treatment goals. 2. Benefits of medication therapy. 3. How medications work. 4. Necessary laboratory monitoring. 5. When to take medications and what to do is a dose is missed. 6. Drug interactions (Rx, OTC, herbal) and importance of notifying healthcare provider with any medication changes. 7. Potential duration of therapy. 8. Potential side effects of medications. 9. Use of control measures if applicable. 10. Importance of regularly filling prescriptions and taking medications. 11. Proper storage of medications. Patient was given opportunity to ask questions and receive answers. Patient confirmed with me that he had no further questions. He was able to teach me how he would take his Brillinta and aspirin and the rutledge side effects to monitor for. He uses a pill box at home already to organize his medications and states he has great adherence to medications. Current Inpatient Medications: Current Facility-Administered Medications Medication Dose Route Frequency NaCl 0.9% iv flush bag 20 mL INTRAVENOUS PRN acetaminophen 650 mg tab(s) (TYLENOL) 650 mg ORAL q 6 H PRN nitroglycerin sublingual 0.4 mg tab(s) (NITROQUICK) 0.4 mg SUBLINGUAL q 5 MIN PRN atropine 0.4 mg injection 0.4 mg INTRAVENOUS PRN(NO DISPENSE) benzocaine-menthol 1 lozenge (CEPACOL) 1 lozenge MUCOUS MEMBRANE (TOPICAL MOUTH AND THROAT) q 2 H PRN aspirin, enteric coated 81 mg tab(s) 81 mg ORAL DAILY ticagrelor 90 mg tab(s) (BRILINTA) 90 mg ORAL BID atorvastatin 80 mg tab(s) (LIPITOR) 80 mg ORAL AT BEDTIME ezetimibe 10 mg tab(s) (ZETIA) 10 mg ORAL DAILY albuterol HFA 90 mcg/actuation 2 puff (PROVENTIL HFA, VENTOLIN HFA) 2 puff INHALATION q 4 H PRN trospium 20 mg tab(s) (SANCTURA) 20 mg ORAL BID AC dextrose 15 gram/32 mL 15 g (TRUEPLUS) 15 g ORAL PRN Or glucagon 1 mg injection 1 mg INTRAMUSCULAR PRN Or dextrose 10% iv bolus 12.5 g INTRAVENOUS PRN heparin 5,000 Units injection 5,000 Units SUBCUTANEOUS q 8 H insulin lispro injection (rapid acting) (ADMElog) SUBCUTANEOUS w MEALS metoprolol succinate ER 25 mg tab(s) (TOPROL XL) 25 mg ORAL BID sodium chloride 0.9 % (flush) 2-10 mL (BD POSIFLUSH) 2-10 mL INTRAVENOUS DIRECTED PRN And perflutren lipid microspheres 1.1 mg/mL 1.3 mL injection (DEFINITY) 1.3 mL INTRAVENOUS DIRECTED PRN losartan 25 mg tab(s) (COZAAR) 25 mg ORAL DAILY SUPPLEMENTAL MATERIAL PROVIDED: [facility] ACS education papers. SIGNATURE: Shailesh Astudillo [facility] PAGER: Angelia Rhodes [facility] ALLIED HEALTHon 11-09-2024 ALLIED HEALTH HNO ID: [id number] Author: CESARIO CATALAN [employer]er Service: Cardiac Rehab Author Type: Eyeglass Assembler Type: Allied Health Filed: 11/09/2024 16:00 Note Text: CARDIAC REHABILITATION PATIENT EDUCATION PROGRESS NOTE Name: Victor Hugo Sheth Date of Service: 11/09/2024 Time of Service: 1509 ASSESSMENT: Risk Factors Identified: Age Diabetic: Non-Insulin Dependent Family History Gender Hyperlipidemia Hypertension Obesity Sedentary Lifestyle Smoker: # of packs per day: 0.3. Total Years of Smokin. RECOMMENDATIONS: Patient interested in Phase II Outpatient Cardiac Rehab: No, not interested. DIAGNOSIS: Percutaneous Cardiac Intervention: YESENIA PCI Teaching Points: -Personal Modifiable Risk Factor Identification -Activity/Physical Exercise Recommendations -Outpatient Cardiac Rehabilitation READINESS TO LEARN: Cognitive Ability: Alert and Oriented Motivation to Learn: Disinterested / avoidant Family Support: Unable to assess - Family not present Instruction Provided To: Patient Patient Learns Best By: Individual Instruction, Written Instruction - Hand-outs, and Verbal Instruction Factors Affecting Learning: None Physical Limitations Affecting Learning: None LEARNING RESPONSE: Method Of Instruction: Individual instruction Written instruction/Handouts Verbal instruction Patient/Family Response: Verbalizes understanding of: Cardiac Rehab Follow-up Plan: No further educational needs identified at this time. Instructional Aids Used: Cardiac Rehabilitation Brochure List of [facility] Cardiac Rehab Programs Signature: Cesario Catalan Eyeglass Assembler Pager: [phone] Date: November 09, 2024 Time: 3:[address] [facility] BRIEF OP NOTon 11-09-2024 BRIEF OP NOT HNO ID: [id number] Author: BEBETO CLARK MD Service: Cardiovascular Medicine Author Type: Physician Type: Brief Op Note Filed: 11/09/2024 09:07 Note Text: LEFT HEART CATHETERIZATION PROCEDURE NOTE Surgery/Procedure Date: 11/09/2024 PRIMARY CARE PHYSICIAN: Jorden Hartmann MD SUBJECTIVE: CHIEF COMPLAINT: HPI: This is a 74 year old White male presenting with cardiomyopathy. He has longstanding history of coronary artery disease. He has history of hypertension, hyperlipidemia, presented with NSTEMI on 05/14/2014 and subsequently underwent PCI of proximal LAD (3.5x28 Promus YESENIA, postdilated to 4.0) and PCI of mid LAD with 3.0 x 16 mm Promus drug-eluting stent. He was seen for cardiology follow-up. A 2D echo done on 09/05/2024 demonstrated EF of 22? 5 percent. A nuclear stress test done on 09/05/2024 demonstrated a small fixed defect in the LAD territory with EF of 27%. His cardiac catheterization on 09/26/2024 demonstrated critical ISR affecting the proximal LAD stent. The ostium of ramus intermediate was probably jailed by the LAD stent. He was eventually referred for possible surgical revascularization. He was seen and evaluated by CV surgery. Initially he was planned for two-vessel coronary bypass grafting. However, given patient's preference and after discussion at multidisciplinary team meeting, the decision was made to proceed with the PCI. At baseline, he is well compensated and has NYHA class I heart failure symptoms. Consent: Informed consent was obtained after the risks, benefits, and alternatives to and of this procedure were discussed in detail with the patient. Procedure in Detail: The patient was brought to the cardiac catheterization laboratory, prepped and draped in the usual sterile fashion. Anxiolysis was achieved with intravenous and intravenous Fentanyl/Versed. Local anesthesia was achieved over the right radial artery with 1% lidocaine. A pre-flushed 6-Iraqi sheath was inserted into the right radial artery via the Seldinger technique without complications. The 6 Iraqi catheter was then exchanged to a 7-1/2 Iraqi u Cath 3.5 guide catheter, and left main was selectively engaged. As mentioned above, angiography demonstrated critical ISR affecting the proximal LAD stent. The LAD was wired using Alireza blue and using Prowater, the ramus intermediate was wired. Using 3.0X15 mm NC balloon, the proximal edge was predilated. IVUS was performed that confirmed luminal diameter of 4.0 within the proximal stent. At the proximal stent edge, there was critical ISR. This was again predilated with 3.0 x 15 mm NC balloon and with 3.5 x 15 mm Hardy cutting balloon. This was followed by stenting of that proximal ISR stent edge with 4.0 x 16 mm Medtronic YESENIA. It was postdilated using 4.0 x 12 mm NC balloon. Patient remained hemodynamically stable throughout the procedure. However, after postdilatation with 4.0 x 12 mm NC, he was borderline hypotensive requiring IV Levophed push. He remained hemodynamically stable since. ACT was maintained therapeutic throughout the procedure using heparin IV boluses. He was preloaded with 180 mg of Brilinta prior to the PCI. At this point, the procedure was terminated. All diagnostic wires and catheters were removed. Recommendations: 1. Daily aspirin indefinitely. Twice daily ticagrelor for at least next 12 months 2. Will continue close monitoring and admit him overnight. 3. Statin use 4. Secondary cardiac prevention measures. SIGNATURE: Bebeto Clark MD, PATIENT NAME: Victor Hugo Sheth DATE: November 09, 2024 TIME: 9:[address] [facility] Basic metabolic 2000 panelon 11-09-2024 Anion gap [Moles/Vol] 13 mmol/L Normal 8-15 [facility] Comment on above: Order Comment: Speci men Type: BLOOD SPECIMEN Ordering Facility: [facility] Address: [address] [place] [address] Performed By: #### 2 4321-2 #### [facility] CLIA [id number] [address] [place] [address] [place] Calcium [Mass/Vol] 8.8 mg/dL Normal 8.5-10.2 [facility] Comment on above: Order Comment: Speci men Type: BLOOD SPECIMEN Ordering Facility: [facility] Address: [address] [place] [address] Performed By: #### 2 4321-2 #### [facility] CLIA [id number] [address] [place] [address] [place] Chloride [Moles/Vol] 99 mmol/L Normal 98-107 [facility] Comment on above: Order Comment: Speci men Type: BLOOD SPECIMEN Ordering Facility: [facility] Address: [address] [place] [address] Performed By: #### 2 1-2 #### [facility] CLIA [id number] [address] [place] [address] [place] CO2 [Moles/Vol] 24 mmol/L Normal 22-30 [facility] Comment on above: Order Comment: Speci men Type: BLOOD SPECIMEN Ordering Facility: [facility] Address: [address] [place] [address] Performed By: #### 2 4321-2 #### [facility] CLIA [id number] [address] [place] [address] [place] Creatinine [Mass/Vol] 0.87 mg/dL Normal 0.73-1.22 [facility] Comment on above: Order Comment: Speci men Type: BLOOD SPECIMEN Ordering Facility: [facility] Address: [address] [place] [address] Performed By: #### 2 4321-2 #### [facility] CLIA [id number] [address] [place] [address] [place] eGFRcr SerPlBld CKD-EPI 2020 92 mL/min/1.73m??? Normal >=60 [facility] Comment on above: Order Comment: Brian curry Type: BLOOD SPECIMEN Ordering Facility: [facility] Address: [address] [place] [address] Result Comment: Apple mated Glomerular Filtration Rate (eGFR) is calculated using the 2020 CKD-EPI creatinine equation. This equation utilizes serum creatinine, sex, and age as parameters. The creatinine assay has traceable calibration to isotope dilution-mass spectrometry. Refer to KDIGO guidelines for clinical interpretation. In patients with unstable renal function, e.g. those with acute kidney injury, the eGFR may not accurately reflect actual GFR. Performed By: #### 2 4321-2 #### [facility] CLIA [id number] [address] [place] [address] [place] Glucose [Mass/Vol] 167 mg/dL High 74-99 [facility] Comment on above: Order Comment: Brian curry Type: BLOOD SPECIMEN Ordering Facility: [facility] Address: [address] [place] [address] Result Comment: The [place] Diabetes Association (ADA) provides guidance for cutoff values for fasting glucose and random glucose. The ADA defines fasting as no caloric intake for at least 8 hours. Fasting plasma glucose results between 100 to 125 mg/dL indicate increased risk for diabetes (prediabetes). Fasting plasma glucose results greater than or equal to 126 mg/dL meet the criteria for diagnosis of diabetes. In the absence of unequivocal hyperglycemia, results should be confirmed by repeat testing. In a patient with classic symptoms of hyperglycemia or hyperglycemic crisis, random plasma glucose results greater than or equal to 200 mg/dL meet the criteria for diagnosis of diabetes. Reference: Standards of Medical Care in Diabetes 2016, [place] Diabetes Association. Diabetes Care. 2016.39(Suppl 1). Performed By: #### 2 4321-2 #### [facility] CLIA [id number] [address] [place] [address] [place] Potassium [Moles/Vol] 4.6 mmol/L Normal 3.7-5.1 [facility] Comment on above: Order Comment: Brian curry Type: BLOOD SPECIMEN Ordering Facility: [facility] Address: [address] [place] [address] Performed By: #### 2 4321-2 #### [facility] CLIA [id number] [address] Sodium [Moles/Vol] 136 mmol/L Normal 136-144 [facility] Comment on above: Order Comment: Speci men Type: BLOOD SPECIMEN Ordering Facility: [facility] Address: [address] [place] [address] Performed By: #### 2 4321-2 #### [facility] CLIA [id number] [address] Urea nitrogen [Mass/Vol] 20 mg/dL Normal 9-24 [facility] Comment on above: Order Comment: Speci men Type: BLOOD SPECIMEN Ordering Facility: [facility] Address: [address] [place] [address] Performed By: #### 2 4321-2 #### [facility] CLIA [id number] [address] CARD CATH INTERVENTon 2024 CARD CATH INTERVENT Site Id: [facility] Lab #: Study Date: 11/09/2024 Start Time: End Time: Name Duty Bebeto Clark MD, MD 1 Shahbaz Landers MD, MD 2 Toby Hooks PROC SCRUB 1 Vinh Mcmanus RN PROC CIRC 1 Latrice Aguilar RN PROC RECORD 1 + + PATIENT INFORMATION + + Name: [facility] : 1950 Age: 74 years Gender: Height: 67 in / 170 cm Weight: 227.07 lb / 103.00 kg BMI: 35.64 kg/m BSA: 2.13 m + --+ CLINICAL HISTORY/INDICATIONS + --+ Appropriate Use Criteria (PCI): One vessel coronary artery disease involving the proximal left anterior descending. CCS anginal class III or IV with high-risk findings on noninvasive testing. Maximal anti-ischemic medical therapy. AUC score = 9. Procedural Status: Elective CAD Presentation: Stable Angina Angina Classification (within 2 weeks): CCS III Heart Failure: NYHA Class II Cardiomyopathy or LV Dysfunction Pre-Op Evaluation before Non-Card Surg: No Cardiogenic Shock: No Cardiac Arrest: No Clinical History: This is a 74 year old White male presenting with cardiomyopathy. He has longstanding history of coronary artery disease. He has history of hypertension, hyperlipidemia, presented with NSTEMI on 05/14/2014 and subsequently underwent PCI of proximal LAD (3.5x28 Promus YESENIA, postdilated to 4.0) and PCI of mid LAD with 3.0 x 16 mm Promus drug-eluting stent. He was seen for cardiology follow-up. A 2D echo done on 09/05/2024 demonstrated EF of 22 5 percent. A nuclear stress test done on 09/05/2024 demonstrated a small fixed defect in the LAD territory with EF of 27%. His cardiac catheterization on 09/26/2024 demonstrated critical ISR affecting the proximal LAD stent. The ostium of ramus intermediate was probably jailed by the LAD stent. He was eventually referred for possible surgical revascularization. He was seen and evaluated by CV surgery. Initially he was planned for two-vessel coronary bypass grafting. However, given patient's preference and after discussion at multidisciplinary team meeting, the decision was made to proceed with the PCI. At baseline, he is well compensated and has NYHA class I heart failure symptoms. + + DIAGNOSTIC FINDINGS + + Coronary Anatomy: Right Dominant Injection Site(s): Coronary Artery LMT: _ The LMT is normal. LAD: _ The proximal LAD is narrowed 95 % - focal disease and ISR. Additional Comment: The prox LAD and mid LAD are stented. There is critical ISR affecting prox LAD stent edge. LCX: _ The Circumflex has mild luminal irregularities. RAMUS: _ The proximal Ramus is narrowed 50 % - focal disease. Additional Comment: There is focal 50% stenosis affecting prox Ramus Intermediate. RCA: _ RCA Status: Not Applicable. + + IMPRESSION/PLAN + + Impression:He presents for the PCI of Prox LAD Recommended Treatment: Medical Therapy and PCI. Plan: Will proceed with PCI of prox LAD + + PCI SUMMARY + + Procedures Performed: Local anesthesia was achieved over the right radial artery with 1% lidocaine. A pre-flushed 6-Iraqi sheath was inserted into the right radial artery via the Seldinger technique without complications. The 6 Iraqi catheter was then exchanged to a 7-1/2 Iraqi u Cath 3.5 guide catheter, and left main was selectively engaged. As mentioned above, angiography demonstrated critical ISR affecting the proximal LAD stent. The LAD was wired using Alireza blue and using Prowater, the ramus intermediate was wired. Using 3.0X15 mm NC balloon, the proximal edge was predilated. IVUS was performed that confirmed luminal diameter of 4.0 within the proximal stent. At the proximal stent edge, there was critical ISR. This was again predilated with 3.0 x 15 mm NC balloon and with 3.5 x 15 mm Hardy cutting balloon. This was followed by stenting of that proximal ISR stent edge with 4.0 x 16 mm Medtronic YESENIA. It was postdilated using 4.0 x 12 mm NC balloon. Patient remained hemodynamically stable throughout the procedure. However, after postdilatation with 4.0 x 12 mm NC, he was borderline hypotensive requiring IV Levophed push. He remained hemodynamically stable since. ACT was maintained therapeutic throughout the procedure using heparin IV boluses. He was preloaded with 180 mg of Brilinta prior to the PCI. Procedural Details: Anticoagulation: Heparin Additional Procedural Medications: Ticagrelor 180mg PO Procedure Summary: Successful IVUS guided PCI of prox LAD Procedure Narrative: Lesion 1: LAD Proximal Guide 1: 7.5FR EBU 3.5. +----+ PLAN +----+ 1. Daily aspirin indefinitely. Twice daily ticagrelor for at least next 12 months 2. Will continue close monitoring and admit him overnight. 3. Statin use 4. Secondary cardiac prevention measures Disposit (more content not included)... Normal [facility] CBC panel Auto (Bld)on 11-09 Erythrocyte distribution width (RBC) [Ratio] 14.2 % Normal 11.5-15.0 [facility] Comment on above: Order Comment: Speci men Type: BLOOD SPECIMENOrdering Facility: [facility] Address: [address] [place] [address] Performed By: #### 5 8410-2 ####[facility] [id number] [address] OF [facility] Hematocrit (Bld) [Volume fraction] 41.7 % Normal 39.0-51.0 [facility] Comment on above: Order Comment: Speci men Type: BLOOD SPECIMENOrdering Facility: [facility] Address: [address] [place] [address] Performed By: #### 5 8410-2 ####[facility] [id number] [address] STATES OF [facility] Hemoglobin (Bld) [Mass/Vol] 13.6 g/dL Normal 13.0-17.0 [facility] Comment on above: Order Comment: Speci men Type: BLOOD SPECIMENOrdering Facility: [facility] Address: [address] [place] [address] Performed By: #### 5 8410-2 ####[facility] [id number] [address] [place] MCH (RBC) [Entitic mass] 29.8 pg Normal 26.0-34.0 [facility] Comment on above: Order Comment: Speci men Type: BLOOD SPECIMENOrdering Facility: [facility] Address: [address] [place] [address] Performed By: #### 5 8410-2 ####[facility] [id number] [address] STATES [facility] MCHC (RBC) [Mass/Vol] 32.6 g/dL Normal 30.5-36.0 [facility] Comment on above: Order Comment: Speci men Type: BLOOD SPECIMENOrdering Facility: [facility] Address: [address] [place] [address] Performed By: #### 5 8410-2 ####[facility] [id number] [address] MCV (RBC) [Entitic vol] 91.2 fL Normal 80.0-100.0 [facility] Comment on above: Order Comment: Speci men Type: BLOOD SPECIMENOrdering Facility: [facility] Address: [address] [place] [address] Performed By: #### 5 8410-2 ####[facility] [id number] [address] Nucleated RBC (Bld) [#/Vol] 10*3/uL Normal <0.01 [facility] Comment on above: Order Comment: Speci men Type: BLOOD SPECIMENOrdering Facility: [facility] Address: [address] [place] [address] Performed By: #### 5 8410-2 ####[facility] [id number] [address] STATES [facility] Platelet mean volume (Bld) [Entitic vol] 8.7 fL Low 9.0-12.7 [facility] Comment on above: Order Comment: Speci men Type: BLOOD SPECIMENOrdering Facility: [facility] Address: [address] [place] [address] Performed By: #### 5 8410-2 ####[facility] [id number] [address] [place] Platelets (Bld) [#/Vol] 373 10*3/uL Normal 150-400 [facility] Comment on above: Order Comment: Speci men Type: BLOOD SPECIMENOrdering Facility: [facility] Address: [address] [place] [address] Performed By: #### 5 8410-2 ####[facility] [id number] [address] [place] RBC (Bld) [#/Vol] 4.57 10*6/uL Normal 4.20-6.00 [facility] Comment on above: Order Comment: Speci men Type: BLOOD SPECIMENOrdering Facility: [facility] Address: [address] [place] [address] Performed By: #### 5 8410-2 ####[facility] [id number] [address] STATES OF [facility] WBC (Bld) [#/Vol] 8.83 10*3/uL Normal 3.70-11.00 [facility] Comment on above: Order Comment: Speci men Type: BLOOD SPECIMENOrdering Facility: [facility] Address: [address] [place] [address] Performed By: #### 5 8410-2 ####[facility] [id number] [address] ECG COMPLETEon 11-09-2024 ECG COMPLETE Ventricular Rate : 8 7 BPM Atrial Rate : 87 BPM P-R Interval : 162 ms QRS Duration : 108 ms Q-T Interval : 408 ms QTC Calculation(Bazett) : 490 ms Calculated P [place] : 78 degrees Calculated R [place] : -32 degrees Calculated T [place] : 33 degrees NORMAL SINUS RHYTHM LEFT AXIS DEVIATION NONSPECIFIC T WAVE ABNORMALITY ABNORMAL ECG NO PREVIOUS ECGS AVAILABLE Confirmed by MD GARCIA DAVID ([id number]) on 11/09/2024 4:54:44 PM NAME : VICTOR HUGO SHETH PID : [id number] : 1950 Gender : Male Race : ORD : [id number] Procedure Date : Nov 09 2024 09:25:07 Edit Date : Nov 09 2024 16:54:48 Diagnosis: NORMAL SINUS RHYTHM LEFT AXIS DEVIATION NONSPECIFIC T WAVE ABNORMALITY ABNORMAL ECG NO PREVIOUS ECGS AVAILABLE Confirmed by MD GARCIA DAVID ([id number]) on 11/09/2024 4:54:44 PM Test Reason : Post-Cath Location : [address] : [place] [address] Overread By : MD GARCIA DAVID Edited By : MD GARCIA DAVID Referred By : BEBETO CLARK Acquired by : HIGINIO GARCIA [facility] HISTORY PHYSICALon HISTORY PHYSICAL HNO ID: [id number] Author: BEBETO CLARK MD Service: Cardiovascular Medicine Author Type: Physician Type: H&P Filed: 11/09/2024 07:36 Note Text: HANDP PRE-CARDIAC CATHETERIZATION SERVICE DATE: 11/09/2024 SERVICE TIME: 7:33 AM PRIMARY CARE PHYSICIAN: Jorden Hartmann MD SUBJECTIVE: CHIEF COMPLAINT: HPI: This is a 74 year old White male presenting with cardiomyopathy. He has longstanding history of coronary artery disease. He has history of hypertension, hyperlipidemia, presented with NSTEMI on 05/14/2014 and subsequently underwent PCI of proximal LAD (3.5x28 Promus YESENIA, postdilated to 4.0) and PCI of mid LAD with 3.0 x 16 mm Promus drug-eluting stent. He was seen for cardiology follow-up. A 2D echo done on 09/05/2024 demonstrated EF of 22? 5 percent. A nuclear stress test done on 09/05/2024 demonstrated a small fixed defect in the LAD territory with EF of 27%. His cardiac catheterization on 09/26/2024 demonstrated critical ISR affecting the proximal LAD stent. The ostium of ramus intermediate was probably jailed by the LAD stent. He was eventually referred for possible surgical revascularization. He was seen and evaluated by CV surgery. Initially he was planned for two-vessel coronary bypass grafting. However, given patient's preference and after discussion at multidisciplinary team meeting, the decision was made to proceed with the PCI. At baseline, he is well compensated and has NYHA class I heart failure symptoms. He denies chest discomfort The following problems are present on admission at this time: Heart failure Anemia Chronic pulmonary disease Diabetes mellitus Hypertension Malignant solid tumor Obesity Continue current outpatient treatment plan and current medications for these conditions, except where otherwise noted. PAST MEDICAL HISTORY Diagnosis Date Advance directive discussed with patient 10/22/2021 Discussed 09/2021 Arthritis of both knees 12/12/2019 CAD (coronary artery disease), [place] coronary artery 05/14/[address] Khalil [facility] 05/14/[address] [facility] report from [facility], showed 85% stenosis in pLAD followed by 95% stenosis and 50-75% stenosis in mid LAD. Minimal disease in LCx and LCA. RCA with proximal and distal 25% stenosis. [facility] 05/17 s/p YESENIA x2 to LAD Plan: Dc home with follow-up Continue Plavix Carpal tunnel syndrome of right wrist 10/27/2013 EMG/NCT 10/27/13=mild right CTS Chronic systolic congestive heart failure (HCC) 03/13/2015 08/02/2018: Home BP Cuff Validated. Home BP: 118/71 Office BP: 116/72 Combined forms of age-related cataract of both eyes 06/15/2016 Combined forms of age-related cataract, bilateral 06/15/2016 Congestive heart failure (HCC) 03/13/2015 COPD with chronic bronchitis ([facility]) 03/13/2015 Corneal scar, right eye 07/18/2020 DDD (degenerative disc disease), cervical DDD (degenerative disc disease), lumbar 12/07/2019 Depression with anxiety Diabetic eye exam ([facility]) 05/15/2015 Last done 06/27/2018: no retinopathy. Dry eye syndrome of both eyes 07/18/2020 Elevated alkaline phosphatase level 10/26/2024 (: GGT, microcardial Ab Neg. Liver portion elevated: Elevated PSA 01/26/2019 Encounter for Medicare annual wellness exam 11/17/2017 Medicare Part B: 12/23/2016 last done: 09/10/2023 Does not want ELMO or colonoscopy Essential hypertension 09/19/2018 Gastroesophageal reflux disease without esophagitis 03/13/2015 History of compression fracture of spine 1971 high school football Iron deficiency anemia 09/26/2019 Iron deficiency anemia 09/26/2019 EGD and colonoscopy done 10/2019 Ischemic cardiomyopathy 05/25/2014 Leukocytosis 09/19/2018 Repeat 10/2018 ok Living will in place 10/22/2021 DPA: Jon (son) Medicare annual wellness visit, initial 11/17/2017 Medicare Part B: 12/23/2016 last done: 01/26/2019 Does not want ELMO or colonoscopy Mixed hyperlipidemia 09/13/2012 Neck pain 10/04/2013 Obesity, Class II, BMI 35-39.9 05/13/2017 Presence of drug coated stent in LAD coronary artery 05/25/2014 Prostate cancer ([facility]) 03/03/2024 Smoker 03/13/2015 Started at 20 yo up to 2 PPD. as of 02/2015 only 5 cigs a day Tachycardia 10/30/2014 Thrombocytosis 09/19/2018 Repeat 10/2018 ok Type 2 diabetes mellitus with diabetic neuropathy, without long-term current use of insulin ([facility]) 11/20/2015 Type 2 diabetes mellitus without retinopathy (HCC) 10/12/2014 Vitreous floaters of both eyes 10/12/2014 PAST SURGICAL HISTORY Procedure Laterality Date COLONOSCOPY FLX DX W/COLLJ SPEC WHEN PFRMD 11/16/2019 Colonoscopy ESOPHAGOGASTRODUODENOSCOPY TRANSORAL DIAGNOSTIC 11/16/2019 EGD HEART CATHETERIZATION 05/14/2014 triple vessel disease, YESENIA x 2 to the prox and mid LAD IMMUNOCHEMICAL FECAL OCCULT BLOOD TEST 03/08/2019 negative PAST SURGICAL HISTORY OF 1971 vertebral fracture in football? no repair. REPAIR FINGER TENDON left hand- cut tendons with chain saw TONSILLECTOMY AND ADENOI (more content not included)... Normal [facility] CNPNon 11-01-2024 CNPN Telephone ([facility]) VICTOR HUGO SHETH ([id number]) 1950 Date Time Provider Department 11/01/24 ZO BOWDEN During your visit today, we recorded the following information about you: Berkley Doherty 11/01/2024 11:01 AM Signed Schedule Direct PCI on 11/09/2024 with Lilliana Mcbride, RN 11/01/2024 11:38 AM Signed LVM for Victor Hugo Sheth to return call to confirm procedure date and receive pre-procedure instructions. When they return call, please confirm date and relay the following instructions: You have been scheduled for a Direct Percutaneous Coronary Intervention (PCI) on 11/09/[address] Clark. Instructions: Your arrival time will be between 7-9 am Senior Research Executive will call you between 2-5 pm the day before your procedure to notify you of your assigned arrival time. If your procedure date is on a Wednesday, phlebotomy lab assistant will call the Wednesday afternoon prior to your procedure. If your procedure date follows a federal holiday, phlebotomy lab assistant will call the afternoon prior to the holiday. Please report to the Heart AND Vascular Entrance at [facility] at your assigned time. [facility] address: [address], [place] [address] The Heart AND Vascular entrance is on the 1st floor and is across the street from a tall glass building. Please park in the deck next to the glass building. You may have your usual food the day prior to your procedure. Please increase your water intake the day prior to your procedure. After midnight you should not eat or drink, but you may drink water to stay hydrated. Medications: With a sip of water on the morning of your procedure, take: Baby Aspirin 81 mg AND your antiplatelet medication Plavix Also take lisinopril, metoprolol - if your regular morning medication(s) If you take diuretic medication(s), please hold the morning of procedure HOLD metformin the day prior AND the morning of your procedure Labs: Completed 10/24/24 Most patients will go home the same day. If you have an intervention, you may need to stay overnight for observation. You must have someone drive you home when you are released from the hospital and you are not to be alone the first evening. If you have any questions or concerns, you may reply to this message via My Chart ~or~ contact our office at [phone] - Option #3 Nursing. GARRETT Ren Linda S, RN 11/02/2024 10:29 AM Signed LVM for Victor Hugo Sheth to return call for procedure information. GARRETT Ren Jessica, LPN 11/02/2024 1:18 PM Signed Victor Hugo Sheth called in and was notified of procedure date and instructions.Patient voiced understanding and agrees to proceed as scheduled. Gianna Wilkinson LPN Allergies As of Date: 11/01/2024 Noted Allergy Reaction RYBELSUS (SEMAGLUTIDE) 04/16/2021 6 - Diarrhea Date Reviewed: 10/30/2024 Reviewed by: Earlene Marshall LPN - Fully Assessed Reason for Visit: Preparations For Procedures [899] Cmt: Direct PCI Prescriptions as of 11/02/2024 - aspirin, enteric coated (ASPIRIN, ENTERIC COATED) 81 mg EC tablet Take 1 tablet by mouth one time only for 1 dose. Take morning of surgery. - metoprolol tartrate, short acting, (LOPRESSOR) 25 mg tablet Take 1 tablet by mouth one time only for 1 dose. Take morning of surgery. - mupirocin (BACTROBAN) 2 % ointment Apply to affected area two times a day for 5 days. Please apply small amount to each nostril twice daily using Q-tip, starting 5 days prior to surgery and morning of surgery. - Chlorhexidine Gluconate (PERIDEX) 0.12 % solution Use 15 mL as instructed two times a day for 5 days. Rinse around mouth for 30 seconds then expectorate twice daily starting 5 days prior to surgery and morning of surgery. - sodium chloride 0.9 %, flush, (BD POSIFLUSH) syringe Inject 2-10 mL intravenously as directed. For Echo procedure - ezetimibe (ZETIA) 10 mg tablet Take 1 tablet by mouth once daily. - oxybutynin ER (DITROPAN XL) 10 mg 24 hr tablet Take 1 tablet by mouth once daily. - metFORMIN (GLUCOPHAGE) 1,000 mg tablet Take 1 tablet by mouth two times a day with meals. - metoprolol succinate ER (TOPROL XL) 50 mg 24 hr tablet Take 1 tablet by mouth once daily. - atorvastatin (LIPITOR) 80 mg tablet Take 1 tablet by mouth daily at bedtime. - glimepiride (AMARYL) 4 mg tablet Take 1 tablet by mouth two times a day with meals. - clopidogrel (PLAVIX) 75 mg tablet Take 1 tablet by mouth once daily. - empagliflozin (JARDIANCE) 25 mg tablet Take 1 tablet by mouth daily with breakfast. - lisinopril (ZESTRIL) 10 mg tablet Take 1 tablet by mouth once daily. - SITagliptin phosphate (JANUVIA) 100 mg tablet Take 1 tablet by mouth once daily. - blood sugar diagnostic (BLOOD GLUCOSE TEST) test strip Test blood sugar(s) 2 times daily. Dx: Other DM Code E11.42 Insulin: No (more content not included)... Normal [facility] CNOVon 10-30-2024 [facility] Office Visit (EITAN RICE) VICTOR HUGO SHETH ([id number]) 1950 M Date Time Provider Department 10/30/24 3:00 PM PALMIRA RUSSELL During your visit today, we recorded the following information about you: Pulse Blood pressure Weight Height 104/minute 138/80 103.2 kg 1.702 m Palmira Russell APRN.CLEANING AND MAINTENANCE WORKER 10/31/2024 1:21 PM Signed opened in error Allergies As of Date: 10/30/2024 Noted Allergy Reaction RYBELSUS (SEMAGLUTIDE) 04/16/2021 6 - Diarrhea Date Reviewed: 10/30/2024 Reviewed by: Earlene Marshall LPN - Fully Assessed Reason for Visit: Established Patient [175] Cmt: PAT CABG Primary Visit Diagnosis:OPENED IN ERROR Prescriptions as of 10/31/2024 - aspirin, enteric coated (ASPIRIN, ENTERIC COATED) 81 mg EC tablet Take 1 tablet by mouth one time only for 1 dose. Take morning of surgery. - metoprolol tartrate, short acting, (LOPRESSOR) 25 mg tablet Take 1 tablet by mouth one time only for 1 dose. Take morning of surgery. - mupirocin (BACTROBAN) 2 % ointment Apply to affected area two times a day for 5 days. Please apply small amount to each nostril twice daily using Q-tip, starting 5 days prior to surgery and morning of surgery. - Chlorhexidine Gluconate (PERIDEX) 0.12 % solution Use 15 mL as instructed two times a day for 5 days. Rinse around mouth for 30 seconds then expectorate twice daily starting 5 days prior to surgery and morning of surgery. - sodium chloride 0.9 %, flush, (BD POSIFLUSH) syringe Inject 2-10 mL intravenously as directed. For Echo procedure - ezetimibe (ZETIA) 10 mg tablet Take 1 tablet by mouth once daily. - oxybutynin ER (DITROPAN XL) 10 mg 24 hr tablet Take 1 tablet by mouth once daily. - metFORMIN (GLUCOPHAGE) 1,000 mg tablet Take 1 tablet by mouth two times a day with meals. - metoprolol succinate ER (TOPROL XL) 50 mg 24 hr tablet Take 1 tablet by mouth once daily. - atorvastatin (LIPITOR) 80 mg tablet Take 1 tablet by mouth daily at bedtime. - glimepiride (AMARYL) 4 mg tablet Take 1 tablet by mouth two times a day with meals. - clopidogrel (PLAVIX) 75 mg tablet Take 1 tablet by mouth once daily. - empagliflozin (JARDIANCE) 25 mg tablet Take 1 tablet by mouth daily with breakfast. - lisinopril (ZESTRIL) 10 mg tablet Take 1 tablet by mouth once daily. - SITagliptin phosphate (JANUVIA) 100 mg tablet Take 1 tablet by mouth once daily. - blood sugar diagnostic (BLOOD GLUCOSE TEST) test strip Test blood sugar(s) 2 times daily. Dx: Other DM Code E11.42 Insulin: No - albuterol HFA (PROVENTIL HFA, VENTOLIN HFA) 90 mcg/actuation inhaler Inhale 2 Puffs as instructed every 4 hours as needed. - Lancets lancets Test blood sugar(s) 2 times daily. Dx: Other DM Code E11.42 Insulin: No - Blood-Glucose Meter Test Blood Sugars 2 times daily Dx E11.42 Insulin: No - flash glucose sensor (FREESTYLE ADRIAN 10 DAY SENSOR) kit 1 Each one time a week. Check blood sugar twice a day - flash glucose scanning reader (FREESTYLE ADRIAN 10 DAY READER) 1 Device twice daily. Check blood sugar twice a day Problem List As Of Date 10/30/2024 Noted Resolved Mixed hyperlipidemia [E78.2] 09/13/2012 Depression with anxiety [F41.8] Neck pain [M54.2] 10/04/2013 Carpal tunnel syndrome of right wrist [G56.01] 10/27/2013 DDD (degenerative disc disease), cervical [M50.* CAD (coronary artery disease), [place] coronary *05/14/2014 Ischemic cardiomyopathy [I25.5] 05/25/2014 Presence of drug coated stent in LAD coronary a*05/25/2014 Combined senile cataract [H25.819] 10/12/2014 06/10/2017 Vitreous floaters of both eyes [H43.393] 10/12/2014 Type 2 diabetes mellitus without retinopathy (H*10/12/2014 Tachycardia [R00.0] 10/30/2014 Chronic systolic congestive heart failure (HCC)*03/13/2015 Gastroesophageal reflux disease without esophag*03/13/2015 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] 03/13/2015 Smoker [F17.200] 03/13/2015 Diabetic eye exam (HCC) [Z01.00, E11.9] 05/15/2015 Uncontrolled type 2 diabetes mellitus with hype*07/18/2015 Type 2 diabetes mellitus with diabetic neuropat*11/20/2015 Combined forms of age-related cataract, bilater*06/15/2016 Screening for colon cancer [Z12.11] 12/29/2016 Obesity, Class II, BMI 35-39.9 [E66.812] 05/13/2017 Prostate disorder [N42.9] 11/03/2017 Encounter for Medicare annual wellness exam [Z0*11/17/2017 Combined forms of age-related cataract of both *06/15/2016 Essential hypertension [I10] 09/19/2018 Elevated PSA [R97.20] 01/26/2019 09/20/2024 Medication management [Z79.899] 07/24/2019 Iron deficiency anemia [D50.9] 09/26/2019 DDD (degenerative disc disease), lumbar [M51.36*12/07/2019 Arthritis of both knees [M17.0] 12/12/2019 Corneal scar, 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 Normal [facility] CNOV Office Visit (EITAN RICE) VICTOR HUGO SHETH ([id number]) 1950 M Date Time Provider Department 10/30/24 1:45 PM ZO BOWDEN During your visit today, we recorded the following information about you: Pulse Blood pressure Weight Height 104/minute 138/80 103.2 kg 1.702 m Earlene Marshall LPN 10/30/2024 4:05 PM Signed CARDIAC REHAB 5 METER WALK TEST SERVICE DATE: 10/30/2024 SERVICE TIME: 1:27PM 4.85 sec 4.28 sec 4.45 sec ASSESSMENT: SIGNATURE: Earlene Marshall LPN PATIENT NAME: Victor Hugo Sheth DATE: October 30, 2024 TIME: 1:32 PM PAGER/CONTACT #: [phone] Palmira Russell APRN.CNP 10/30/2024 4:05 PM Signed Procedure Type: Isolated CABG Perioperative Outcome Estimate % Operative Mortality 3.13% Morbidity AND Mortality 14.7% Stroke 1.09% Renal Failure 1.99% Reoperation 2.72% Prolonged Ventilation 11.4% Deep Sternal Wound Infection 0.5% Long Hospital Stay (>14 days) 8.82% Short Hospital Stay (<6 days)* 26.9% Procedure Type: CABG + AVR Perioperative Outcome Estimate % Operative Mortality 4.55% Morbidity AND Mortality 29.7% Stroke 2.81% Renal Failure 4.04% Reoperation 6.73% Prolonged Ventilation 21.3% Deep Sternal Wound Infection 0.569% Long Hospital Stay (>14 days) 14.3% Short Hospital Stay (<6 days)* 18% Clinical Summary Planned Surgery: CABG + AVR, Elective, First cardiovascular surgery Demographics: 74 year old, male, 102.7kg, 170.2cm, BMI: 35.4 kg/m? Lab Values: Creatinine: 0.91 mg/dL, Hematocrit: 47.3%, WBC Count: 8.93 10?/?L, Platelet Count: 413043 cells/?L PreOp Medications: Oral diabetes control Substance Abuse: Current smoker Risk Factors / Comorbidities: Diabetes Mellitus , Hypertension, Family Hx of CAD Pulmonary RF: Severe CLD Cardiac Status: Chronic heart failure, Ejection Fraction = 20% Coronary Artery Disease: 3 vessels diseased, Non-ST Elevation LA, LA: > 21 Days Valve Disease: Aortic Stenosis, Trivial/Trace Palmira Armijo APRN.CNP 10/30/2024 2:08 PM Signed Pre-Admission Patient Instruction You are scheduled for surgery (inpatient) located on the 2nd Floor on: 11/07 (your surgery date is subject to change should there be emergencies prior to your scheduled OR time). Come in the Front Doors / Main Entrance of the hospital. No need to stop at front entrance registration. Please check in to the Surgery [facility] (2nd Floor) at: 6 AM Nothing by mouth after midnight: Do not eat or drink anything, including water and coffee, after 12 AM on the morning of your surgery, EXCEPT about 8-10 oz of clear liquid. This is important because if you do, your surgery may have to be cancelled. Eat a light supper the evening before surgery or follow specific doctor's instructions. Clear fluid allowed are: water, gatorade, other clear electrolytes drinks, clear juice (nothing floating in it), coffee/tea (black with or without sugar) Clear soda, jello without fruit, popsicles. Drinks NOT allowed: milk, cream or non dairy creamers, juice with pulp, coffee/tea w/cream, beer/wine/alcohol, smoothies or protein drinks Oral hygiene and a shower or bath is required the evening before and the morning of surgery. Use the prescribed mouth wash and Hibiclens body wash that has been supplied to you. Do not chew gum/mints, or use oral spray the morning of surgery. Notify your doctor if you develop a cold, sore throat, fever or other changes in your physical condition or come in contact with someone who is ill. No alcohol 24 hours before or after surgery and refrain from smoking the morning of surgery and immediately following surgery. Leave valuables such as rings, watches and money at home. Remove all make-up and nail korean before admission. We need to check your circulation. Remove jewelry from all piercings, tongue included, as no metal can go into surgery. Wear loose, comfortable clothing that will accommodate bandages. You will be asked to remove glasses or contacts, and/or your denture prior to surgery. Please bring a case. Your belongings will be kept in an assigned locker until we know your new room after procedure. Please bring your CPAP or BIPAP or any necessary medical equipments, we will keep them in an assigned locker until you are assigned a post-op room. Your length of stay will be determined by your surgeon/surgery team, the anesthesiologist as well as your post of progress. On the morning of surgery, your point of contact will be instructed on communication regarding surgery updates. Please bring a list of any medication you are taking including dose and the condition for which you are being treated. Medications to stop in preparing surgery: Stop Anticoagulant: Plavix, last dose on: 11/01 Stop lisinopril 24 hours before surgery, last dose on: 11/05 Stop Metformin 24 hours before surgery, last dose on: 11/05 (more content not included)... Normal [facility] STAPHYLOCOCCUS AUREUS AND MR SA SCREEN, PCR, NASALon 10-30-2024 S. aureus and MRSA panel JERSON+probe (Nose) Methicillin-SUSCEPTIBLE Staphylococcus aureus Detected Abnormal Not Detected [facility] Comment on above: Order Comment: Speci men Type: SWAB Ordering Facility: [facility] Address: [address] [place] [address] Performed By: #### S APCR #### [facility] CLIA [id number] [address] [place] [address] [place] STAPHYLOCOCCUS AUREUS & MRSA SCREEN, PCR, NASALon 10-30-2024 Interpretation and review of laboratory results Abnormal [facility] S. aureus and MRSA panel JERSON+probe (Nose) Methicillin-SUSCEPTIBLE Staphylococcus aureus Detected Abnormal Not Detected [facility] BRIEF OP NOTon 10-26-2024 BRIEF OP NOT HNO ID: [id number] Author: BEBETO CLARK MD Service: Cardiovascular Medicine Author Type: Physician Type: Brief Op Note Filed: 10/26/2024 10:44 Note Text: RIGHT HEART CATHETERIZATION PROCEDURE NOTE Surgery/Procedure Date: 10/26/2024 Referring Physician: Dr Zo Bowden Clinical History: This is a 74 year old male who initially presented to us for workup of cardiomyopathy on 09/26/2024. He has long history of CAD has had prior PCI done in April 2014 requiring PCI of proximal LAD and mid LAD. He was seen for cardiology follow-up. A 2D echo done on 09/05/2024 demonstrated EF of 22?5%. He underwent cardiac catheterization on 09/26/2024 that demonstrated critical ISR affecting the proximal LAD stent. Given his risk factors and proximity of the lesion to left main, patient was referred for possible surgical revascularization. Patient was seen and evaluated by CT surgery. He was also found to have mild to moderate mitral regurgitation. He presents today for need of ISABELLE to further assess mitral regurgitation. Right heart cath was requested as a part of cardiomyopathy workup as well. Consent: Informed consent was obtained after the risks, benefits, and alternatives to and of this procedure were discussed in detail with the patient. Procedure in Detail: The patient was brought to the cardiac catheterization laboratory, prepped and draped in the usual sterile fashion. Local anesthesia was achieved over the right antecubital area with 1% lidocaine. A pre-flushed 5-Iraqi sheath was inserted into the right antecubital vein via the Seldinger technique without complications. Right heart catheterization was performed using 5 [place]-Jaime catheter. There were no complications of the procedure. Findings: RA = 12/9, mean of 10 mmHg. RV = 41/-1, mean of 4 mmHg. PA = 43/6, mean of 25 mmHg. PCWP = 17/13, mean of 13 mmHg. RA sat 67% PA sat 67% Ao sat 97%. Cardiac output by Priyanka method 4.43, cardiac output by thermodilution 7.9. Cardiac index by Priyanka method 2.1, cardiac index by thermodilution 3.7. Impressions: He is a 74-year-old male awaiting coronary artery bypass grafting. His right heart catheterization findings demonstrates near normal filling pressures with preserved cardiac output and index. At this point, the procedure was terminated. All diagnostic wires and catheters were removed. Recommendations: 1. Further management per CT surgery. 2. Secondary cardiac prevention measures. SIGNATURE: Bebeto Clark MD, MD PATIENT NAME: Victor Hugo Sheth DATE: October 26, 2024 TIME: 10:[address] [facility] BRIEF OP NOT HNO ID: [id number] Author: SANTIAGO COLLADO MD Service: Cardiovascular Medicine Author Type: Physician Type: Brief Op Note Filed: 10/26/2024 09:06 Note Text: PROCEDURE: ISABELLE REASON FOR PROCEDURE: mitral regurgitation pre-CABG UNIVERSAL PROTOCOL / SAFETY CHECKLIST: Procedure to be performed: DC CVN. Sign in Communication: Completed. Time Out: Team Confirms the Correct Patient, Correct Procedure, Correct Site and Site Marking, Correct Position (if applicable). Affirmation of Time Out: YES. Sign Out Discussion: Completed. PROCEDURE IN DETAIL: The procedure was explained to the patient/patient's surrogate with risks (including very rare complication of esophageal tear) and benefits of the procedure. The patient/family understands. The patient was placed on a monitor and supplemental oxygen. Oropharyngeal area was locally anesthestized with cetacaine spray. Bite block was placed and patient was positioned in left lateral decubitus position. Patient received proper sedation with versed and fentanyl. ISABELLE probe was passed without resistance. Images were obtained per indication. ISABELLE probe was then pulled out. IMPRESSION: Successful ISABELLE with no immediate complication. Mild MR Trivial MS Severely reduced EF Normal [facility] CARD CATH DIAGNOSTICon 10-26 CARD CATH DIAGNOSTIC Site Id: [facility] Lab #: DEFAULT Study Date: 10/26/2024 Start Time: End Time: Name Duty Bebeto Clark MD PROC 1 Toby Hooks PROC SCRUB 1 Vinh Mcmanus RN PROC CIRC 1 Latrice Mayo RN PROC RECORD 1 + + PATIENT INFORMATION + + Name: [facility] : 1950 Age: 74 years Gender: + --+ CLINICAL HISTORY/INDICATIONS + --+ Appropriate Use Criteria (Diag): Known or suspected cardiomyopathy with or without heart failure; AUC score = 7. Procedural Status: Elective CAD Presentation: Stable Angina Angina Classification (within 2 weeks): CCS II Heart Failure: NYHA Class III No Cardiomyopathy - No LV Dysfunction Pre-Op Evaluation before Non-Card Surg: No Cardiogenic Shock: No Cardiac Arrest: No Clinical History: This is a 74 year old male who initially presented to us for workup of cardiomyopathy on 09/26/2024. He has long history of CAD has had prior PCI done in April 2014 requiring PCI of proximal LAD and mid LAD. He was seen for cardiology follow-up. A 2D echo done on 09/05/2024 demonstrated EF of 22 5%. He underwent cardiac catheterization on 09/26/2024 that demonstrated critical ISR affecting the proximal LAD stent. Given his risk factors and proximity of the lesion to left main, patient was referred for possible surgical revascularization. Patient was seen and evaluated by CT surgery. He was also found to have mild to moderate mitral regurgitation. He presents today for need of ISABELLE to further assess mitral regurgitation. Right heart cath was requested as a part of cardiomyopathy workup as well. + + DIAGNOSTIC FINDINGS + + Coronary Anatomy: Coronary Angio Not Done Injection Site(s): n/a LMT: _ LMT Status: Not Applicable. LAD: _ LAD Status: Not Applicable. LCX: _ LCX Status: Not Applicable. RAMUS: _ Ramus Status: Not Applicable. RCA: _ RCA Status: Not Applicable. Additional Findings:Right heart catheterization findings: RA = 12/9, mean of 10 mmHg. RV = 41/-1, mean of 4 mmHg. PA = 43/6, mean of 25 mmHg. PCWP = 17/13, mean of 13 mmHg. RA sat 67% PA sat 67% Ao sat 97%. Cardiac output by Priyanka method 4.43, cardiac output by thermodilution 7.9. Cardiac index by Priyanka method 2.1, cardiac index by thermodilution 3.7. + + IMPRESSION/PLAN + + Impression:He is a 74-year-old male awaiting coronary artery bypass grafting. His right heart catheterization findings demonstrates near normal filling pressures with preserved cardiac output and index. Recommended Treatment: Medical Therapy and CABG. Plan: 1. Further management per CT surgery. 2. Secondary cardiac prevention measures + + HEMODYNAMICS - XPER + + + +-----+--- --+-------+-----+------+--- ---+ Measurement Name Sys Alley End Alley Mean A Wave V Wave + +-----+--- --+-------+-----+------+--- ---+ RA 10.00 12.00 9.00 + +-----+--- --+-------+-----+------+--- ---+ RV 41.00 -1.00 4.00 + +-----+--- --+-------+-----+------+--- ---+ PA 43.00 6.00 25.00 + +-----+--- --+-------+-----+------+--- ---+ PW 13.00 17.00 13.00 + +-----+--- --+-------+-----+------+--- ---+ Oximetry: + +----+ +-----+---+--- --+ Time Site O2 Saturation O2 PO2 HB + +----+ +-----+---+--- --+ 10/26/2024 10:12:51 AM AO 97.00 20.71 15.70 + +----+ +-----+---+--- --+ 10/26/2024 10:12:51 AM RA 67.00 14.31 15.70 + +----+ +-----+---+--- --+ 10/26/2024 10:12:51 AM AO 97.00 20.71 15.70 + +----+ +-----+---+--- --+ 10/26/2024 10:12:51 AM PA 67.00 14.31 15.70 + +----+ +-----+---+--- --+ Cardiac Outputs: +--------+-----+ PRIYANKA SV 48.10 +--------+-----+ PRIYANKA CO 4.43 +--------+-----+ PRIYANKA CI 2.08 +--------+-----+ PRIYANKA HR +--------+-----+ MAN CO +--------+-----+ MAN CI +--------+-----+ TD SV 86.60 +--------+-----+ TD CO 7.96 +--------+-----+ TD CI 3.74 +--------+-----+ ANGIO SV +--------+-----+ ANGIO CO +--------+-----+ ANGIO CI +--------+-----+ + --------+ ADVERSE OUTCOME(s)/COMPLICATION(s) + --------+ None + ----+ PROCEDURAL & TECHNICAL DETAILS + ----+ Date Time Description 10/26/2024 12:00:00 AM Right Heart Cath *MEDICAL HISTORY* CAD Presentation: Stable Angina Angina Classification (within 2 weeks): CCS II Heart Failure: NYHA Class III No Cardiomyopathy - No L (more content not included)... Normal [facility] ECHO TRANSESOPHAGEALon 10-26 ECHO TRANSESOPHAGEAL Echocardiography Re port: Transesophageal Echo [facility] Date of service: 10/26/2024 8:27:11 AM [facility] Ordering physician: PALMIRA RUSSELL Exam indication: AR / MR mechanism study Technologist: Zachary Farmer and Marv Clark [facility] Interpreting physician: Santiago Collado MD PATIENT: Name: MR. VICTOR HUGO SHETH : 1950 Age: 74 years Gender: M History of heart failure with hospitalization, hypertension, diabetes mellitus and coronary artery disease. Primary rhythm: sinus. Height: 170.20 cm BSA: 2.20 m Weight: 102.69 kg BMI: 35.5 kg/m Pre Heart rate 93 bpm Blood pressure 143/77 mmHg Color Doppler was utilized to interrogate the cardiac valves assessed and spectral Doppler was utilized to determine the flow velocities and pressure gradients reported in this exam. Medications Total Dose Versed 6.00 mg Fentanyl 150.00 mcg Agitated Saline 10.00 ml Viscous Lidocaine x1, Hurricaine spray x1 Exam performed under moderate sedation with continuous ECG, pulse oximetry and cardiopulmonary monitoring by nursing, overseen by the performing physician(s), for an intraservice time of 7 min. (Stop Time: 9:01Am) No specimens collected. No blood loss. The interpreting physician was present for and actively participated in the ISABELLE procedure. MEASUREMENTS: Value Normal Ejection Fraction 20 % (visual est.) EF > 52 FINDINGS: LEFT VENTRICLE The left ventricle is dilated. Left ventricular systolic function is severely decreased. RIGHT VENTRICLE The right ventricle is normal in size. Right ventricular systolic function is normal. LEFT ATRIUM The left atrial cavity is normal in size. There is no left atrial appendage thrombus. RIGHT ATRIUM The right atrial cavity is normal in size. MITRAL VALVE The mitral valve leaflets are structurally normal. There is no mitral valve stenosis. There is mild (1+) mitral valve regurgitation. TRICUSPID VALVE The tricuspid valve leaflets are structurally normal. There is no tricuspid valve stenosis. There is no tricuspid valve regurgitation. AORTIC VALVE The aortic valve cusps are structurally normal. There is no aortic valve stenosis. There is no aortic valve regurgitation. Tricuspid aortic valve. PULMONIC VALVE The pulmonic valve cusps are structurally normal. There is no pulmonic valve stenosis. There is trace pulmonic valve regurgitation. INTERATRIAL SEPTUM There is no evidence of intracardiac shunting as detected by Doppler, agitated saline contrast and agitated saline contrast following the Valsalva maneuver. CONCLUSIONS: - Exam indication: AR / MR mechanism study - The left ventricle is dilated. Left ventricular systolic function is severely decreased. EF = 20 5% (visual est.) - The right ventricle is normal in size. Right ventricular systolic function is normal. - There are no significant valvular abnormalities. - There is mild (1+) functional mitral valve regurgitation. - Mild moderate atheroma burden in descending aorta - There is no evidence of intracardiac shunting as detected by Doppler, agitated saline contrast and agitated saline contrast following the Valsalva maneuver. - Exam was compared with the prior CC echocardiographic exam performed on 09/07/2024. MR is mild on today's study * * * Final * * * CC [employer] : [id number] Normal [facility] ALKALINE PHOSPHATASE ISOENZY MES (P)on 10-24-2024 ALK PHOS BONE % 19.0 % Normal 10.7-68.3 [facility] Comment on above: Order Comment: Speci men Type: BLOOD SPECIMEN Ordering Facility: [facility] Address: [address] [place] [address] Performed By: #### A LKISOP #### [facility] CLIA [id number] [address] [place] [address] [place] ALK PHOS LIVER % 81.0 % Normal 26.0-86.2 [facility] Comment on above: Order Comment: Speci men Type: BLOOD SPECIMEN Ordering Facility: [facility] Address: [address] [place] [address] Performed By: #### A LKISOP #### [facility] CLIA [id number] [address] [place] [address] [place] BONE FRACTION 23.0 U/L Normal 12.9-52.6 [facility] Comment on above: Order Comment: Speci men Type: BLOOD SPECIMEN Ordering Facility: [facility] Address: [address] [place] [address] Performed By: #### A LKISOP #### [facility] CLIA [id number] [address] [place] [address] [place] INTESTINE FRACTION 0.0 U/L Normal 0.0-16.3 [facility] Comment on above: Order Comment: Speci men Type: BLOOD SPECIMEN Ordering Facility: [facility] Address: [address] [place] [address] Performed By: #### A LKISOP #### [facility] CLIA [id number] [address] [place] [address] [place] LIVER FRACTION 98.0 U/L High 16.0-69.3 [facility] Comment on above: Order Comment: Speci men Type: BLOOD SPECIMEN Ordering Facility: [facility] Address: [address] [place] [address] Performed By: #### A LKISOP #### [facility] CLIA [id number] [address] [place] [address] [place] Neutrophils/100 WBC (Bld) 0.0 % Normal 0.0-24.2 [facility] Comment on above: Order Comment: Speci men Type: BLOOD SPECIMEN Ordering Facility: [facility] Address: [address] [place] [address] Performed By: #### A LKISOP #### [facility] CLIA [id number] [address] [place] [address] [place] ALP SerPl-cCncon 10-24-2024 ALP [Catalytic activity/Vol] 121 U/L High 38-113 [facility] Comment on above: Order Comment: Speci men Type: BLOOD SPECIMEN Ordering Facility: [facility] Address: [address] [place] [address] Performed By: #### 2 324-2, 3016-3 #### [facility] CLIA [id number] [address] [place] [address] [place] #### 6768-6 #### [facility] [id number] [address] [place] [address] [place] Performed By: #### A LKISOP #### [facility] CLIA [id number] [address] [place] [address] [place] Bilirub Conj SerPl-mCncon Bilirubin.conjugated [Mass/Vol] 0.1 mg/dL Normal <0.3 [facility] Comment on above: Order Comment: Speci men Type: BLOOD SPECIMEN Ordering Facility: [facility] Address: [address] [place] [address] Performed By: #### A LKISOP #### [facility] CLIA [id number] [address] [place] [address] [place] CBC panel Auto (Bld)on 10-24 Erythrocyte distribution width (RBC) [Ratio] 13.8 % Normal 11.5-15.0 [facility] Comment on above: Order Comment: Speci men Type: BLOOD SPECIMEN Ordering Facility: [facility] Address: [address] [place] [address] Performed By: #### A LKISOP #### [facility] CLIA [id number] [address] [place] [address] [place] Hematocrit (Bld) [Volume fraction] 47.3 % Normal 39.0-51.0 [facility] Comment on above: Order Comment: Speci men Type: BLOOD SPECIMEN Ordering Facility: [facility] Address: [address] [place] [address] Performed By: #### A LKISOP #### [facility] CLIA [id number] [address] [place] [address] [place] Hemoglobin (Bld) [Mass/Vol] 15.7 g/dL Normal 13.0-17.0 [facility] Comment on above: Order Comment: Speci men Type: BLOOD SPECIMEN Ordering Facility: [facility] Address: [address] [place] [address] Performed By: #### A LKISOP #### [facility] CLIA [id number] [address] [place] [address] [place] MCH (RBC) [Entitic mass] 29.6 pg Normal 26.0-34.0 [facility] Comment on above: Order Comment: Speci men Type: BLOOD SPECIMEN Ordering Facility: [facility] Address: [address] [place] [address] Performed By: #### A LKISOP #### [facility] CLIA [id number] [address] [place] [address] [place] MCHC (RBC) [Mass/Vol] 33.2 g/dL Normal 30.5-36.0 [facility] Comment on above: Order Comment: Speci men Type: BLOOD SPECIMEN Ordering Facility: [facility] Address: [address] [place] [address] Performed By: #### A LKISOP #### [facility] CLIA [id number] [address] [place] [address] [place] MCV (RBC) [Entitic vol] 89.2 fL Normal 80.0-100.0 [facility] Comment on above: Order Comment: Speci men Type: BLOOD SPECIMEN Ordering Facility: [facility] Address: [address] [place] [address] Performed By: #### A LKISOP #### [facility] CLIA [id number] [address] [place] [address] [place] Nucleated RBC (Bld) [#/Vol] 10*3/uL Normal <0.01 [facility] Comment on above: Order Comment: Speci men Type: BLOOD SPECIMEN Ordering Facility: [facility] Address: [address] [place] [address] Performed By: #### A LKISOP #### [facility] CLIA [id number] [address] [place] [address] [place] Platelet mean volume (Bld) [Entitic vol] 9.2 fL Normal 9.0-12.7 [facility] Comment on above: Order Comment: Speci men Type: BLOOD SPECIMEN Ordering Facility: [facility] Address: [address] [place] [address] Performed By: #### A LKISOP #### [facility] CLIA [id number] [address] [place] [address] [place] Platelets (Bld) [#/Vol] 352 10*3/uL Normal 150-400 [facility] Comment on above: Order Comment: Speci men Type: BLOOD SPECIMEN Ordering Facility: [facility] Address: [address] [place] [address] Performed By: #### A LKISOP #### [facility] CLIA [id number] [address] [place] [address] [place] RBC (Bld) [#/Vol] 5.30 10*6/uL Normal 4.20-6.00 [facility] Comment on above: Order Comment: Speci men Type: BLOOD SPECIMEN Ordering Facility: [facility] Address: [address] [place] [address] Performed By: #### A LKISOP #### [facility] IA [id number] [address] [place] [address] [place] WBC (Bld) [#/Vol] 8.93 10*3/uL Normal 3.70-11.00 [facility] Comment on above: Order Comment: Speci men Type: BLOOD SPECIMEN Ordering Facility: [facility] Address: [address] [place] [address] Performed By: #### A LKISOP #### [facility] CLIA [id number] [address] [place] [address] [place] CNCOon 10-24-2024 CNCO Letter Text Normal [facility] Comprehensive metabolic 2000 panelon 10-24-2024 Albumin [Mass/Vol] 4.3 g/dL Normal 3.9-4.9 [facility] Comment on above: Order Comment: Speci men Type: BLOOD SPECIMEN Ordering Facility: [facility] Address: [address] [place] [address] Performed By: #### A LKISOP #### [facility] [place] [id number] [address] [place] [address] [place] ALT [Catalytic activity/Vol] 15 U/L Normal 10-54 [facility] Comment on above: Order Comment: Speci men Type: BLOOD SPECIMEN Ordering Facility: [facility] Address: [address] [place] [address] Performed By: #### A LKISOP #### [facility] CLIA [id number] [address] [place] [address] [place] Anion gap [Moles/Vol] 13 mmol/L Normal 8-15 [facility] Comment on above: Order Comment: Speci men Type: BLOOD SPECIMEN Ordering Facility: [facility] Address: [address] [place] [address] Performed By: #### A LKISOP #### [facility] CLIA [id number] [address] [place], [place] [id number] [place] AST [Catalytic activity/Vol] 15 U/L Normal 14-40 [facility] Comment on above: Order Comment: Speci men Type: BLOOD SPECIMEN Ordering Facility: [facility] Address: [address] [place] [address] Performed By: #### A LKISOP #### [facility] CLIA [id number] [address] [place] [address] [place] Bilirubin [Mass/Vol] 0.3 mg/dL Normal 0.2-1.3 [facility] Comment on above: Order Comment: Speci men Type: BLOOD SPECIMEN Ordering Facility: [facility] Address: [address] [place] [address] Performed By: #### A LKISOP #### [facility] CLIA [id number] [address] [place], [place] [address] [place] Calcium [Mass/Vol] 9.7 mg/dL Normal 8.5-10.2 [facility] Comment on above: Order Comment: Speci men Type: BLOOD SPECIMEN Ordering Facility: [facility] Address: [address] [place] [address] Performed By: #### A LKISOP #### [facility] CLIA [id number] [address] [place], [place] [address] [place] Chloride [Moles/Vol] 101 mmol/L Normal 98-107 [facility] Comment on above: Order Comment: Speci men Type: BLOOD SPECIMEN Ordering Facility: [facility] Address: [address] [place] [address] Performed By: #### A LKISOP #### [facility] CLIA [id number] [address] [place] [address] [place] CO2 [Moles/Vol] 23 mmol/L Normal 22-30 [facility] Comment on above: Order Comment: Speci men Type: BLOOD SPECIMEN Ordering Facility: [facility] Address: [address] [place] [address] Performed By: #### A LKISOP #### [facility] IA [id number] [address] [place] [address] [place] Creatinine [Mass/Vol] 0.91 mg/dL Normal 0.73-1.22 [facility] Comment on above: Order Comment: Speci men Type: BLOOD SPECIMEN Ordering Facility: [facility] Address: [address] [place] [address] Performed By: #### A LKISOP #### [facility] CLIA [id number] [address] [place] [address] [place] eGFRcr SerPlBld CKD-EPI 2020 90 mL/min/1.73m??? Normal >=60 [facility] Comment on above: Order Comment: Speci men Type: BLOOD SPECIMEN Ordering Facility: [facility] Address: [address] [place] [address] Result Comment: Apple mated Glomerular Filtration Rate (eGFR) is calculated using the 2020 CKD-EPI creatinine equation. This equation utilizes serum creatinine, sex, and age as parameters. The creatinine assay has traceable calibration to isotope dilution-mass spectrometry. Refer to KDIGO guidelines for clinical interpretation. In patients with unstable renal function, e.g. those with acute kidney injury, the eGFR may not accurately reflect actual GFR. Performed By: #### A LKISOP #### [facility] CLIA [id number] [address] [place] [address] [place] Glucose [Mass/Vol] 149 mg/dL High 74-99 [facility] Comment on above: Order Comment: Brian curry Type: BLOOD SPECIMEN Ordering Facility: [facility] Address: [address] [place] [address] Result Comment: The [place] [employer] (ADA) provides guidance for cutoff values for fasting glucose and random glucose. The ADA defines fasting as no caloric intake for at least 8 hours. Fasting plasma glucose results between 100 to 125 mg/dL indicate increased risk for diabetes (prediabetes). Fasting plasma glucose results greater than or equal to 126 mg/dL meet the criteria for diagnosis of diabetes. In the absence of unequivocal hyperglycemia, results should be confirmed by repeat testing. In a patient with classic symptoms of hyperglycemia or hyperglycemic crisis, random plasma glucose results greater than or equal to 200 mg/dL meet the criteria for diagnosis of diabetes. Reference: Standards of Medical Care in Diabetes 2016, [place] [employer]. Diabetes Care. 2016.39(Suppl 1). Performed By: #### A LKISOP #### [facility] CLIA [id number] [address] [place] [address] [place] Potassium [Moles/Vol] 4.3 mmol/L Normal 3.7-5.1 [facility] Comment on above: Order Comment: Brian curry Type: BLOOD SPECIMEN Ordering Facility: [facility] Address: [address] [place] [address] Performed By: #### A LKISOP #### [facility] CLIA [id number] [address] [place] [address] [place] Protein [Mass/Vol] 7.0 g/dL Normal 6.3-8.0 [facility] Comment on above: Order Comment: Brian curry Type: BLOOD SPECIMEN Ordering Facility: [facility] Address: [address] [place] [address] Performed By: #### A LKISOP #### [facility] CLIA [id number] [address] [place] [address] [place] Sodium [Moles/Vol] 137 mmol/L Normal 136-144 [facility] Comment on above: Order Comment: Speci men Type: BLOOD SPECIMEN Ordering Facility: [facility] Address: [address] [place] [address] Performed By: #### A LKISOP #### [facility] CLIA [id number] [address] [place] [address] [place] Urea nitrogen [Mass/Vol] 20 mg/dL Normal 9-24 [facility] Comment on above: Order Comment: Speci men Type: BLOOD SPECIMEN Ordering Facility: [facility] Address: [address] [place] [address] Performed By: #### A LKISOP #### [facility] CLIA [id number] [address] [place] [address] [place] GGT SerPl-cCncon 10-24-2024 Gamma glutamyl transferase [Catalytic activity/Vol] 29 U/L Normal 10-70 [facility] Comment on above: Order Comment: Speci men Type: BLOOD SPECIMEN Ordering Facility: [facility] Address: [address] [place] [address] Performed By: #### 2 324-2, 3016-3 #### [facility] CLIA [id number] [address] [place] [address] [place] #### 6768-6 #### [facility] [id number] [address] [place] [address] [place] Magnesium SerPl-mCncon 10-24 Magnesium [Mass/Vol] 1.8 mg/dL Normal 1.7-2.3 [facility] Comment on above: Order Comment: Speci men Type: BLOOD SPECIMEN Ordering Facility: [facility] Address: [address] [place] [address] Performed By: #### A LKISOP #### [facility] CLIA [id number] [address] [place], [place] [address] [place] Mitochondria Ab IF Ql (S)on 10-24-2024 Mitochondria M2 Ab IA Qn (S) 2.1 Units Normal <=20.0 [facility] Comment on above: Order Comment: Brian curry Type: BLOOD SPECIMEN Ordering Facility: [facility] Address: [address] [place] [address] Performed By: #### 5 7021-8 #### [facility] CLIA [id number] [address] [place] [address] [place] Mitochondria M2 Ab Ql (S) Negative Normal Negative [facility] Comment on above: Order Comment: Brian curry Type: BLOOD SPECIMEN Ordering Facility: [facility] Address: [address] [place] [address] Result Comment: Anti -mitochondrial antibody test is used as an aid in diagnosis of primary biliary cholangitis. Clinical correlation is required. Performed By: #### 5 7021-8 #### [facility] CLIA [id number] [address] [place] [address] [place] PT panel Coag (PPP)on 2024 INR Coag (PPP) [Relative time] 1.0 {INR} Normal 0.9-1.3 [facility] Comment on above: Order Comment: Brian curry Type: BLOOD SPECIMEN Ordering Facility: [facility] Address: [address] [place] [address] Result Comment: Anabel min K Antagonist (VKA) Therapeutic Range: INR 2 to 3 (Target INR of 2.5) Note: For patients treated with VKA drugs, such as warfarin, the [place] [employer] 2012 Guideline recommends a therapeutic INR range of 2 to 3 (target INR of 2.5). This recommendation includes high-risk patients with antiphospholipid syndrome with previous arterial or venous thromboembolism, current-generation mechanical or bioprosthetic aortic heart valve replacement. Note: Patients with mechanical aortic valve replacement and additional risk factors for thromboembolic events (atrial fibrillation, previous thromboembolism, LV dysfunction, hypercoagulable conditions) or an older generation mechanical AVR (i.e., ball in-Cage) or any mechanical MVR should have a INR therapeutic range of 2.5 to 3.5 (target INR of 3). Herber GH, et al. Chest 2012, 141:7S-47S Ella RA, et al. [facility] 2017, 70: 252-289 Performed By: #### A LKISOP #### [facility] CLIA [id number] [address] [place] [address] [place] PT Coag (PPP) [Time] 10.7 s Normal <13.1 [facility] Comment on above: Order Comment: Speci men Type: BLOOD SPECIMEN Ordering Facility: [facility] Address: [address] [place] [address] Performed By: #### A LKISOP #### [facility] CLIA [id number] [address] [place] [address] [place] TSH SerPl-aCncon 10-24-2024 TSH Qn 1.360 m[IU]/L Normal 0.270-4.200 [facility] Comment on above: Order Comment: Speci men Type: BLOOD SPECIMEN Ordering Facility: [facility] Address: [address] [place] [address] Performed By: #### 2 324-2, 3016-3 #### [facility] CLIA [id number] [address] [place] [address] [place] #### 6768-6 #### [facility] CLIA [id number] [address] [place], [place] [address] [place] TYPE AND SCREEN,30 DAYon ABO AB Normal [facility] Comment on above: Order Comment: Speci men Type: BLOOD SPECIMENOrdering Facility: [facility] Address: [address] [place] [address] Performed By: #### T SCR30 ####[facility]ANK[facility] [id number] [place] [address] [place] Rh Nom (Bld) Positive Normal [facility] Comment on above: Order Comment: Speci men Type: BLOOD SPECIMENOrdering Facility: [facility] Address: [address] [place] [address] Performed By: #### T SCR30 ####[facility] [id number] [address] [id number] [address] [place] US CAROTID ARTERIES [facility] LABon 10-24-2024 US CAROTID ARTERIES [facility] Non-Invasive Vascular Laboratory [facility] Carotid Duplex Bilateral/Complete Date of service/time: 10/24/2024 1:36:10 PM Name: MR. VICTOR HUGO SHETH Date of : 1950 Age: 74 years Gender: M Clinical Indication Pre op for cardiac surgery. TECHNIQUE -------- A carotid duplex ultrasound examination was performed, including grayscale imaging and color Doppler and spectral Doppler examination of the below mentioned arteries. FINDINGS -------- RIGHT SIDE Common carotid artery: Origin: PSV: 76 cm/s. EDV: 19 cm/s. Proximal: PSV: 96 cm/s. EDV: 25 cm/s. Mid: PSV: 104 cm/s. EDV: 25 cm/s. Distal: PSV: 55 cm/s. EDV: 15 cm/s. Mild heterogeneous plaque at distal. Internal carotid artery: Origin: PSV: 86 cm/s. EDV: 32 cm/s. Proximal: PSV: 85 cm/s. EDV: 25 cm/s. Mid: PSV: 77 cm/s. EDV: 27 cm/s. Distal: PSV: 51 cm/s. EDV: 17 cm/s. Mild heterogeneous plaque from origin to proximal. ICA/CCA Ratio: 1.6 External carotid artery: Proximal: PSV: 119 cm/s. EDV: 19 cm/s. Mild heterogeneous plaque at origin. Subclavian artery: Proximal: PSV: 163 cm/s. EDV: 0 cm/s. Moderate heterogeneous plaque at origin. Innominate artery: PSV: 181 cm/s. EDV: 0 cm/s. Vertebral artery: PSV: 53 cm/s. EDV: 14 cm/s. LEFT SIDE Common carotid artery: Proximal: PSV: 132 cm/s. EDV: 31 cm/s. Mid: PSV: 91 cm/s. EDV: 21 cm/s. Distal: PSV: 72 cm/s. EDV: 14 cm/s. Moderate heterogeneous plaque at distal. Internal carotid artery: Origin: PSV: 55 cm/s. EDV: 10 cm/s. Proximal: PSV: 65 cm/s. EDV: 24 cm/s. Mid: PSV: 56 cm/s. EDV: 22 cm/s. Distal: PSV: 51 cm/s. EDV: 18 cm/s. Mild heterogeneous plaque at origin. ICA/CCA Ratio: 0.9 External carotid artery: Proximal: PSV: 132 cm/s. EDV: 22 cm/s. Subclavian artery: Proximal: PSV: 106 cm/s. EDV: 0 cm/s. Vertebral artery: PSV: 49 cm/s. EDV: 12 cm/s. IMPRESSION Please note: the new carotid interpretation criteria are used as recommended by [employer]. RIGHT SIDE Common carotid artery: Plaque visualized without evidence of hemodynamically significant stenosis. Internal carotid artery: <50% stenosis consistent with mild carotid artery disease. External carotid artery: Patent. Vertebral artery: Patent and antegrade flow noted. Innominate artery: Patent. Subclavian artery: Plaque visualized without evidence of hemodynamically significant stenosis. LEFT SIDE Common carotid artery: Plaque visualized without evidence of hemodynamically significant stenosis. Internal carotid artery: <50% stenosis consistent with mild carotid artery disease. External carotid artery: Patent. Vertebral artery: Patent and antegrade flow noted. Subclavian artery: Patent. Technologist: Radha Markham T Ordering physician: PALMIRA RUSSELL Interpreting physician: Jon Zhu MD Final CC [employer] [facility] : [id number] See Link below for Image Normal [facility] Urinalysis complete panel (U )on 10-24-2024 Bacteria LM.HPF (Urine sed) [#/Area] Negative Normal Negative [facility] Comment on above: Order Comment: Speci men Type: URINE SPECIMEN Ordering Facility: [facility] Address: [address] [place] [address] Performed By: #### 2 4356-8 #### [facility] CLIA [id number] [address] [place] [address] [place] Bilirubin Ql (U) Negative Normal Negative [facility] Comment on above: Order Comment: Speci men Type: URINE SPECIMEN Ordering Facility: [facility] Address: [address] [place] [address] Performed By: #### 2 4356-8 #### [facility] CLIA [id number] [address] [place] [address] [place] Clarity (Unsp spec) Clear Normal Clear [facility] Comment on above: Order Comment: Speci men Type: URINE SPECIMEN Ordering Facility: [facility] Address: [address] [place] [address] Performed By: #### 2 4356-8 #### [facility] CLIA [id number] [address] [place] [address] [place] Color (U) Yellow Normal Yellow [facility] Comment on above: Order Comment: Speci men Type: URINE SPECIMEN Ordering Facility: [facility] Address: [address] [place] [address] Performed By: #### 2 4356-8 #### [facility] CLIA [id number] [address] [place] [address] [place] Epithelial cells LM.HPF (Urine sed) [#/Area] None Seen Normal [facility] Comment on above: Order Comment: Speci men Type: URINE SPECIMEN Ordering Facility: [facility] Address: [address] [place] [address] Performed By: #### 2 4356-8 #### [facility] CLIA [id number] [address] [place] [address] [place] Glucose Test strip (U) [Mass/Vol] 3+ Abnormal Negative [facility] Comment on above: Order Comment: Speci men Type: URINE SPECIMEN Ordering Facility: [facility] Address: [address] [place] [address] Performed By: #### 2 4356-8 #### [facility] CLIA [id number] [address] [place] [address] [place] Hemoglobin Ql (U) Negative Normal Negative [facility] Comment on above: Order Comment: Speci men Type: URINE SPECIMEN Ordering Facility: [facility] Address: [address] [place] [address] Performed By: #### 2 4356-8 #### [facility] CLIA [id number] [address] [place] [address] [place] Hyaline casts (Urine sed) [#/Area] 0 /[LPF] Normal 0 /LPF [facility] Comment on above: Order Comment: Speci men Type: URINE SPECIMEN Ordering Facility: [facility] Address: [address] [place] [address] Performed By: #### 2 4356-8 #### [facility] CLIA [id number] [address] [place] [address] [place] Ketones Ql (U) Negative Normal Negative [facility] Comment on above: Order Comment: Speci men Type: URINE SPECIMEN Ordering Facility: [facility] Address: [address] [place] [address] Performed By: #### 2 4356-8 #### [facility] CLIA [id number] [address] [place] [address] [place] Leukocyte esterase Test strip Ql (U) Negative Normal Negative [facility] Comment on above: Order Comment: Speci men Type: URINE SPECIMEN Ordering Facility: [facility] Address: [address] [place] [address] Performed By: #### 2 4356-8 #### [facility] CLIA [id number] [address] [place] [address] [place] Nitrite Ql (U) Negative Normal Negative [facility] Comment on above: Order Comment: Speci men Type: URINE SPECIMEN Ordering Facility: [facility] Address: [address] [place] [address] Performed By: #### 2 4356-8 #### [facility] CLIA [id number] [address] [place] [address] [place] pH (U) 6.0 [pH] Normal 5.0-8.0 [facility] Comment on above: Order Comment: Speci men Type: URINE SPECIMEN Ordering Facility: [facility] Address: [address] [place] [address] Performed By: #### 2 4356-8 #### [facility] CLIA [id number] [address] [place] [address] [place] Protein (U) [Mass/Vol] Negative Normal Negative [facility] Comment on above: Order Comment: Speci men Type: URINE SPECIMEN Ordering Facility: [facility] Address: [address] [place] [address] Performed By: #### 2 4356-8 #### [facility] CLIA [id number] [address] [place] [address] [place] RBC LM.HPF (Urine sed) [#/Area] 0-2 /HPF Normal 0-2 /HPF [facility] Comment on above: Order Comment: Speci men Type: URINE SPECIMEN Ordering Facility: [facility] Address: [address] [place] [address] Performed By: #### 2 4356-8 #### [facility] CLIA [id number] [address] [place] [address] [place] Specific gravity (U) [Rel density] 1.037 High 1.005-1.030 [facility] Comment on above: Order Comment: Speci men Type: URINE SPECIMEN Ordering Facility: [facility] Address: [address] [place] [address] Performed By: #### 2 4356-8 #### [facility] IA [id number] [address] [place] [address] [place] Urobilinogen Ql (U) 0.2 EU/dL Normal 0.2-1.0 EU/dL [facility] Comment on above: Order Comment: Speci men Type: URINE SPECIMEN Ordering Facility: [facility] Address: [address] [place] [address] Performed By: #### 2 4356-8 #### [facility] [place] [id number] [address] [place] [address] [place] WBC LM.HPF (Urine sed) [#/Area] 0-5 /HPF Normal 0-5 /HPF [facility] Comment on above: Order Comment: Speci men Type: URINE SPECIMEN Ordering Facility: [facility] Address: [address] [place] [address] Performed By: #### 2 4356-8 #### [facility] [place] [id number] [address] [place] [address] [place] CHEST WO IVCONon 10-21-[address] CHEST WO IVCON * * *Final Report* * * DATE OF EXAM: Oct 20 2024 1:29PM [facility] [place] 0541 - CT CHEST WO IVCON / PROCEDURE REASON: multiple diagnoses * * * * Physician Interpretation * * * * EXAMINATION: CHEST CT WITHOUT CONTRAST CLINICAL HISTORY: Dyspnea Technique: Spiral CT acquisition of the chest from the thoracic inlet to the upper abdomen without contrast. MQ: CTCWO_6 CT Radiation dose: Integrated Dose-length product (DLP) for this visit = 335 mGy*cm CT Dose Reduction Employed: Automated exposure control(AEC) and iterative recon Comparison: 09/16/2012 RESULT: Limitations: None. Lines, tubes, and devices: None. Lung parenchyma and airways: Calcific granulomas are again seen within the left lung. Additionally, there are stable subcentimeter noncalcified pulmonary nodules. For example, there is a stable, approximately 4 mm nodule within the lingula (series 2, image #128). There is a stable, approximately 4 mm nodule within the right lower lobe (series 2, image #153). There has been interval development of an approximately 5 mm nodule within the left lower lobe (series 2, image #171). A few other pulmonary nodules have also developed in the interval. There is no pneumothorax or endobronchial lesion. Mild emphysematous change. Pleural space: There is no pleural effusion. Lower neck, lymph nodes, and mediastinum: There are no pathologically enlarged axillary lymph nodes. Prominent, less than 1 cm mediastinal and bilateral hilar lymph nodes are likely reactive. Heart, pericardium, and thoracic vessels: Atherosclerotic calcifications are present within the thoracic aorta and coronary arteries. The heart is normal in size. No significant pericardial effusion. Mild bilateral gynecomastia. 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 Bones and soft tissues: There is scoliosis, osteopenia, and multilevel degenerative change seen within the visualized. Loose bodies about the right shoulder. Upper abdomen: A small splenule is seen within the left upper quadrant. Partially visualized somewhat complex-appearing left renal cyst, containing thin calcified septation, measuring approximately 8 cm (series 2 image #260). The liver has a somewhat nodular contour. Subcentimeter, low-attenuation lesion within left hepatic lobe is too small to characterize but statistically relates to a subcentimeter cyst (series 2, image #207). IMPRESSION: No acute pulmonary process identified. Sequela of remote granulomatous disease. Although the majority of the subcentimeter noncalcified pulmonary nodules seen on the prior examination are stable, a few new pulmonary nodules have developed in the interval, measuring up to 5 mm in size. 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 Prominent, less than 1 cm mediastinal and bilateral hilar lymph nodes, likely reactive. Incidental Finding: Follow-up Acuity: Incidental Finding: Solid: <6 mm (solitary or multiple) Routing Code: N/A Recommendation: No imaging follow-up is recommended Time Frame: N/A Comments: If there are risk factors for lung malignancy, a follow-up chest CT exam could be obtained in 12 months --END OF FINDING-- Biological Sciences Professor: EVELIA Transcribe Date/Time: Oct 20 2024 2:01P Dictated by : JUNIOR CALDERON MD This examination was interpreted and the report reviewed and electronically signed by: JUNIOR CALDERON MD on Oct 20 2024 8:14PM EST [id number] ACTIONABLE Invalid Interpretation Code [facility] CT Chest WO contrastOrdered By: [facility] Provider on 10-20-2024 Interpretation and review of laboratory results Abnormal [facility] Radiology Result ACTIONABLE Abnormal [facility] Comment on above: This report contains an incidental or actionable finding. This finding may be a new finding separate from the reason your provider ordered the imaging test or it may be an already known finding that needs additional or continued follow-up. Because of this incidental or actionable finding, you may need another test (imaging or a different type of test). Please contact your provider for the next steps. [facility] CT Chest WO contraston 10-20 IMPRESSION: No acute pulmonary process identified. Sequela of remote granulomatous disease. Although the majority of the subcentimeter noncalcified pulmonary nodules seen on the prior examination are stable, a few new pulmonary nodules have developed in the interval, measuring up to 5 mm in size. 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 Prominent, less than 1 cm mediastinal and bilateral hilar lymph nodes, likely reactive. Incidental Finding: Follow-up Acuity: Incidental Finding: Solid: <6 mm (solitary or multiple) Routing Code: N/A Recommendation: No imaging follow-up is recommended Time Frame: N/A Comments: If there are risk factors for lung malignancy, a follow-up chest CT exam could be obtained in 12 months --END OF FINDING-- Biological Sciences Professor: EVELIA Transcribe Date/Time: Oct 20 2024 2:01P Dictated by : JUNIOR CALDERON MD This examination was interpreted and the report reviewed and electronically signed by: JUNIOR CALDERON MD on Oct 20 2024 8:14PM EST [facility] * * *Final Report* * * DATE OF EXAM: Oct 20 2024 1:29PM [facility] [place] 0541 - CT CHEST WO IVCON / PROCEDURE REASON: multiple diagnoses * * * * Physician Interpretation * * * * EXAMINATION: CHEST CT WITHOUT CONTRAST CLINICAL HISTORY: Dyspnea Technique: Spiral CT acquisition of the chest from the thoracic inlet to the upper abdomen without contrast. MQ: CTCWO_6 CT Radiation dose: Integrated Dose-length product (DLP) for this visit = 335 mGy*cm CT Dose Reduction Employed: Automated exposure control(AEC) and iterative recon Comparison: 09/16/2012 RESULT: Limitations: None. Lines, tubes, and devices: None. Lung parenchyma and airways: Calcific granulomas are again seen within the left lung. Additionally, there are stable subcentimeter noncalcified pulmonary nodules. For example, there is a stable, approximately 4 mm nodule within the lingula (series 2, image #128). There is a stable, approximately 4 mm nodule within the right lower lobe (series 2, image #153). There has been interval development of an approximately 5 mm nodule within the left lower lobe (series 2, image #171). A few other pulmonary nodules have also developed in the interval. There is no pneumothorax or endobronchial lesion. Mild emphysematous change. Pleural space: There is no pleural effusion. Lower neck, lymph nodes, and mediastinum: There are no pathologically enlarged axillary lymph nodes. Prominent, less than 1 cm mediastinal and bilateral hilar lymph nodes are likely reactive. Heart, pericardium, and thoracic vessels: Atherosclerotic calcifications are present within the thoracic aorta and coronary arteries. The heart is normal in size. No significant pericardial effusion. Mild bilateral gynecomastia. 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 Bones and soft tissues: There is scoliosis, osteopenia, and multilevel degenerative change seen within the visualized. Loose bodies about the right shoulder. Upper abdomen: A small splenule is seen within the left upper quadrant. Partially visualized somewhat complex-appearing left renal cyst, containing thin calcified septation, measuring approximately 8 cm (series 2 image #260). The liver has a somewhat nodular contour. Subcentimeter, low-attenuation lesion within left hepatic lobe is too small to characterize but statistically relates to a subcentimeter cyst (series 2, image #207). [facility] Provider, Shannon Strauss [facility] - 10/20/2024 * * *Final Report* * * DATE OF EXAM: Oct 20 2024 1:29PM [facility] [place] 0541 - CT CHEST WO IVCON / PROCEDURE REASON: multiple diagnoses * * * * Physician Interpretation * * * * EXAMINATION: CHEST CT WITHOUT CONTRAST CLINICAL HISTORY: Dyspnea Technique: Spiral CT acquisition of the chest from the thoracic inlet to the upper abdomen without contrast. MQ: CTCWO_6 CT Radiation dose: Integrated Dose-length product (DLP) for this visit = 335 mGy*cm CT Dose Reduction Employed: Automated exposure control(AEC) and iterative recon Comparison: 09/16/2012 RESULT: Limitations: None. Lines, tubes, and devices: None. Lung parenchyma and airways: Calcific granulomas are again seen within the left lung. Additionally, there are stable subcentimeter noncalcified pulmonary nodules. For example, there is a stable, approximately 4 mm nodule within the lingula (series 2, image #128). There is a stable, approximately 4 mm nodule within the right lower lobe (series 2, image #153). There has been interval development of an approximately 5 mm nodule within the left lower lobe (series 2, image #171). A few other pulmonary nodules have also developed in the interval. There is no pneumothorax or endobronchial lesion. Mild emphysematous change. Pleural space: There is no pleural effusion. Lower neck, lymph nodes, and mediastinum: There are no pathologically enlarged axillary lymph nodes. Prominent, less than 1 cm mediastinal and bilateral hilar lymph nodes are likely reactive. Heart, pericardium, and thoracic vessels: Atherosclerotic calcifications are present within the thoracic aorta and coronary arteries. The heart is normal in size. No significant pericardial effusion. Mild bilateral gynecomastia. 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 Bones and soft tissues: There is scoliosis, osteopenia, and multilevel degenerative change seen within the visualized. Loose bodies about the right shoulder. Upper abdomen: A small splenule is seen within the left upper quadrant. Partially visualized somewhat complex-appearing left renal cyst, containing thin calcified septation, measuring approximately 8 cm (series 2 image #260). The liver has a somewhat nodular contour. Subcentimeter, low-attenuation lesion within left hepatic lobe is too small to characterize but statistically relates to a subcentimeter cyst (series 2, image #207). IMPRESSION IMPRESSION: No acute pulmonary process identified. Sequela of remote granulomatous disease. Although the majority of the subcentimeter noncalcified pulmonary nodules seen on the prior examination are stable, a few new pulmonary nodules have developed in the interval, measuring up to 5 mm in size. 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 Prominent, less than 1 cm mediastinal and bilateral hilar lymph nodes, likely reactive. Incidental Finding: Follow-up Acuity: Incidental Finding: Solid: <6 mm (solitary or multiple) Routing Code: N/A Recommendation: No imaging follow-up is recommended Time Frame: N/A Comments: If there are risk factors for lung malignancy, a follow-up chest CT exam could be obtained in 12 months --END OF FINDING-- Biological Sciences Professor: EVELIA Transcribe Date/Time: Oct 20 2024 2:01P Dictated by : JUNIOR CALDERON MD This examination was interpreted and the report reviewed and electronically signed by: JUNIOR CALDERON MD on Oct 20 2024 8:14PM [facility] Radiology Study observation (narrative) [facility] [place] 10-11-2024 CNPN Telephone (AGVASACC) VICTOR HUGO SHETH ([id number]) 1950 M Date Time Provider Department 10/11/24 ZO BOWDEN During your visit today, we recorded the following information about you: Manuel Townsend MA 10/13/2024 10:08 AM Signed Left message for pt to call back to discuss OV and surgery schedule. Manuel Townsend MA 10/17/2024 12:49 PM Signed Phoned pt regarding future appts also mailed itinerary to his home. Presurgical labs to be drawn week of 10/23/24 at any [facility] facility. No fasting required. Office visit 10/30/24 1:45pm with Dr. Bowden to review testing and discuss surgery, possible presurgical instructions with ERP PM CABG tentatively schedule for 11/07/24 arrival time 6am procedure time 8am [facility]. Allergies As of Date: 10/11/2024 Noted Allergy Reaction RYBELSUS (SEMAGLUTIDE) 04/16/2021 6 - Diarrhea Date Reviewed: 09/26/2024 Reviewed by: Earlene Marshall LPN - Fully Assessed Reason for Visit: Schedule Surgery [1330] Orders [681] Primary Visit Diagnosis:Coronary artery disease involving [place] coronary artery of [place] heart without angina pectoris [I25.10] Other Visit Diagnoses:Preoperative testing [Z01.818] Uncontrolled type 2 diabetes mellitus with hyperglycemia (HCC) [E11.65] Order(s):SURGICAL REQUEST - ELECTIVE (09/2019) [6356889] Order #: [id number]: 1 TYPE AND SCREEN,30 DAY [OMDZSM07] Order #: [id number] FUTURE COMPREHENSIVE METABOLIC PANEL [SQCMP] Order #: [id number] FUTURE MAGNESIUM [SQMG1] Order #: [id number] FUTURE PROTHROMBIN TIME [SQPT] Order #: [id number] FUTURE THYROID STIMULATING HORMONE [SQTSH] Order #: [id number] FUTURE URINALYSIS (WITH MICROSCOPIC) WITH CULTURE IF INDICATED [SQUACII] Order #: [id number] FUTURE COMPLETE BLOOD COUNT [SQCBC] Order #: [id number] FUTURE Prescriptions as of 10/17/2024 - sodium chloride 0.9 %, flush, (BD POSIFLUSH) syringe Inject 2-10 mL intravenously as directed. For Echo procedure - ezetimibe (ZETIA) 10 mg tablet Take 1 tablet by mouth once daily. - oxybutynin ER (DITROPAN XL) 10 mg 24 hr tablet Take 1 tablet by mouth once daily. - metFORMIN (GLUCOPHAGE) 1,000 mg tablet Take 1 tablet by mouth two times a day with meals. - metoprolol succinate ER (TOPROL XL) 50 mg 24 hr tablet Take 1 tablet by mouth once daily. - atorvastatin (LIPITOR) 80 mg tablet Take 1 tablet by mouth daily at bedtime. - glimepiride (AMARYL) 4 mg tablet Take 1 tablet by mouth two times a day with meals. - clopidogrel (PLAVIX) 75 mg tablet Take 1 tablet by mouth once daily. - empagliflozin (JARDIANCE) 25 mg tablet Take 1 tablet by mouth daily with breakfast. - lisinopril (ZESTRIL) 10 mg tablet Take 1 tablet by mouth once daily. - SITagliptin phosphate (JANUVIA) 100 mg tablet Take 1 tablet by mouth once daily. - blood sugar diagnostic (BLOOD GLUCOSE TEST) test strip Test blood sugar(s) 2 times daily. Dx: Other DM Code E11.42 Insulin: No - albuterol HFA (PROVENTIL HFA, VENTOLIN HFA) 90 mcg/actuation inhaler Inhale 2 Puffs as instructed every 4 hours as needed. - Lancets lancets Test blood sugar(s) 2 times daily. Dx: Other DM Code E11.42 Insulin: No - Blood-Glucose Meter Test Blood Sugars 2 times daily Dx E11.42 Insulin: No - flash glucose sensor (FREESTYLE ADRIAN 10 DAY SENSOR) kit 1 Each one time a week. Check blood sugar twice a day - flash glucose scanning reader (FREESTYLE ADRIAN 10 DAY READER) 1 Device twice daily. Check blood sugar twice a day Problem List As Of Date 10/11/2024 Noted Resolved Mixed hyperlipidemia [E78.2] 09/13/2012 Depression with anxiety [F41.8] Neck pain [M54.2] 10/04/2013 Carpal tunnel syndrome of right wrist [G56.01] 10/27/2013 DDD (degenerative disc disease), cervical [M50.* CAD (coronary artery disease), [place] coronary *05/14/2014 Ischemic cardiomyopathy [I25.5] 05/25/2014 Presence of drug coated stent in LAD coronary a*05/25/2014 Combined senile cataract [H25.819] 10/12/2014 06/10/2017 Vitreous floaters of both eyes [H43.393] 10/12/2014 Type 2 diabetes mellitus without retinopathy (H*10/12/2014 Tachycardia [R00.0] 10/30/2014 Chronic systolic congestive heart failure (HCC)*03/13/2015 Gastroesophageal reflux disease without esophag*03/13/2015 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 Normal [facility] CNPNon 10-09-2024 CNPN Telephone (AGVASACC) VICTOR HUGO SHETH ([id number]) 1950 Date Time Provider Department 10/09/24 ZO BOWDEN JESSIEACC During your visit today, we recorded the following information about you: Manuel Townsend MA 10/09/2024 11:34 AM Signed Phoned pt regarding future appts CT Chest without contrast 10/18/24 10:40am AND Carotid US 10/18/24 11:00am [facility] on the 1st floor . Informed pt he will receive call from [facility] to schedule him for RHC/ISABELLE Allergies As of Date: 10/09/2024 Noted Allergy Reaction RYBELSUS (SEMAGLUTIDE) 04/16/2021 6 - Diarrhea Date Reviewed: 09/26/2024 Reviewed by: Earlene Marshall LPN - Fully Assessed Reason for Visit: Appointment [186] Prescriptions as of 10/09/2024 - sodium chloride 0.9 %, flush, (BD POSIFLUSH) syringe Inject 2-10 mL intravenously as directed. For Echo procedure - ezetimibe (ZETIA) 10 mg tablet Take 1 tablet by mouth once daily. - oxybutynin ER (DITROPAN XL) 10 mg 24 hr tablet Take 1 tablet by mouth once daily. - metFORMIN (GLUCOPHAGE) 1,000 mg tablet Take 1 tablet by mouth two times a day with meals. - metoprolol succinate ER (TOPROL XL) 50 mg 24 hr tablet Take 1 tablet by mouth once daily. - atorvastatin (LIPITOR) 80 mg tablet Take 1 tablet by mouth daily at bedtime. - glimepiride (AMARYL) 4 mg tablet Take 1 tablet by mouth two times a day with meals. - clopidogrel (PLAVIX) 75 mg tablet Take 1 tablet by mouth once daily. - empagliflozin (JARDIANCE) 25 mg tablet Take 1 tablet by mouth daily with breakfast. - lisinopril (ZESTRIL) 10 mg tablet Take 1 tablet by mouth once daily. - SITagliptin phosphate (JANUVIA) 100 mg tablet Take 1 tablet by mouth once daily. - blood sugar diagnostic (BLOOD GLUCOSE TEST) test strip Test blood sugar(s) 2 times daily. Dx: Other DM Code E11.42 Insulin: No - albuterol HFA (PROVENTIL HFA, VENTOLIN HFA) 90 mcg/actuation inhaler Inhale 2 Puffs as instructed every 4 hours as needed. - Lancets lancets Test blood sugar(s) 2 times daily. Dx: Other DM Code E11.42 Insulin: No - Blood-Glucose Meter Test Blood Sugars 2 times daily Dx E11.42 Insulin: No - flash glucose sensor (FREESTYLE ADRIAN 10 DAY SENSOR) kit 1 Each one time a week. Check blood sugar twice a day - flash glucose scanning reader (FREESTYLE ADRIAN 10 DAY READER) 1 Device twice daily. Check blood sugar twice a day Problem List As Of Date 10/09/2024 Noted Resolved Mixed hyperlipidemia [E78.2] 09/13/2012 Depression with anxiety [F41.8] Neck pain [M54.2] 10/04/2013 Carpal tunnel syndrome of right wrist [G56.01] 10/27/2013 DDD (degenerative disc disease), cervical [M50.* CAD (coronary artery disease), [place] coronary *05/14/2014 Ischemic cardiomyopathy [I25.5] 05/25/2014 Presence of drug coated stent in LAD coronary a*05/25/2014 Combined senile cataract [H25.819] 10/12/2014 06/10/2017 Vitreous floaters of both eyes [H43.393] 10/12/2014 Type 2 diabetes mellitus without retinopathy (H*10/12/2014 Tachycardia [R00.0] 10/30/2014 Chronic systolic congestive heart failure (HCC)*03/13/2015 Gastroesophageal reflux disease without esophag*03/13/2015 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] 03/13/2015 Smoker [F17.200] 03/13/2015 Diabetic eye exam (HCC) [Z01.00, E11.9] 05/15/2015 Uncontrolled type 2 diabetes mellitus with hype*07/18/2015 Type 2 diabetes mellitus with diabetic neuropat*11/20/2015 Combined forms of age-related cataract, bilater*06/15/2016 Screening for colon cancer [Z12.11] 12/29/2016 Obesity, Class II, BMI 35-39.9 [E66.812] 05/13/2017 Prostate disorder [N42.9] 11/03/2017 Encounter for Medicare annual wellness exam [Z0*11/17/2017 Combined forms of age-related cataract of both *06/15/2016 Essential hypertension [I10] 09/19/2018 Elevated PSA [R97.20] 01/26/2019 09/20/2024 Medication management [Z79.899] 07/24/2019 Iron deficiency anemia [D50.9] 09/26/2019 DDD (degenerative disc disease), lumbar [M51.36*12/07/2019 Arthritis of both knees [M17.0] 12/12/2019 Corneal scar, 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] 07/18/2020 Dry eye syndrome of both eyes [H04.123] 07/18/[address] [Z78.9] 10/22/2021 Advance directive discussed with patient [Z71.8*10/22/2021 Prostate cancer (HCC) [C61] 03/03/2024 Congestive heart failure (HCC) [I50.9] 07/28/2024 09/20/2024 Shortness of breath [R06.02] 07/28/2024 09/20/2024 Obesity, Class I, BMI 30-34.9 [E66.811] 09/26/2024 Abnormal stress test [R94.39] 09/26/2024 Encounter Status:Closed by RAS TOWNSEND on 10/09/24 [facility] TIENFlor 10-04-2024 CNPN Telephone (AGEpiGaNACC) VICTOR HUGO SHETH ([id number]) 1950 Date Time Provider Department 10/04/24 ZO BOWDEN AGMARISSAMORENITA During your visit today, we recorded the following information about you: Manuel Townsend MA 10/04/2024 3:50 PM Signed Pt saw Dr. Bowden 09/26/24 and decided to proceed with CABG. Per 09/26/24 office encounter he will need a carotid duplex, CT chest, and RHC/ISABELLE, and office visit to follow. Allergies As of Date: 10/04/2024 Noted Allergy Reaction RYBELSUS (SEMAGLUTIDE) 04/16/2021 6 - Diarrhea Date Reviewed: 09/26/2024 Reviewed by: Earlene Marshall LPN - Fully Assessed Reason for Visit: Orders [681] Patient Update [1234] Appointment [186] Primary Visit Diagnosis:Chronic systolic congestive heart failure (HCC) [I50.22] Other Visit Diagnoses:Coronary artery disease involving [place] coronary artery of [place] heart without angina pectoris [I25.10] Nonrheumatic mitral valve regurgitation [I34.0] Preoperative testing [Z01.818] Encounter for screening for cardiovascular disorders [Z13.6] Order(s):US CAROTID ARTERIES [facility] [1757430] Order #: [id number] FUTURE CT CHEST WO IVCON [[id number]] Order #: [id number] FUTURE CARDIAC MANAGER SOCIAL WORK ORDER [[id number]] Order #: [id number]: 1 ECHO TRANSESOPHAGEAL [[id number]] Order #: [id number]: 1 FUTURE sodium chloride 0.9 %, flush, (BD POSIFLUSH) syringeInject 2-10 mL intravenously as directed. For Echo procedureDisp: 10 mLRfl: 0 Prescriptions as of 10/10/2024 - sodium chloride 0.9 %, flush, (BD POSIFLUSH) syringe Inject 2-10 mL intravenously as directed. For Echo procedure - ezetimibe (ZETIA) 10 mg tablet Take 1 tablet by mouth once daily. - oxybutynin ER (DITROPAN XL) 10 mg 24 hr tablet Take 1 tablet by mouth once daily. - metFORMIN (GLUCOPHAGE) 1,000 mg tablet Take 1 tablet by mouth two times a day with meals. - metoprolol succinate ER (TOPROL XL) 50 mg 24 hr tablet Take 1 tablet by mouth once daily. - atorvastatin (LIPITOR) 80 mg tablet Take 1 tablet by mouth daily at bedtime. - glimepiride (AMARYL) 4 mg tablet Take 1 tablet by mouth two times a day with meals. - clopidogrel (PLAVIX) 75 mg tablet Take 1 tablet by mouth once daily. - empagliflozin (JARDIANCE) 25 mg tablet Take 1 tablet by mouth daily with breakfast. - lisinopril (ZESTRIL) 10 mg tablet Take 1 tablet by mouth once daily. - SITagliptin phosphate (JANUVIA) 100 mg tablet Take 1 tablet by mouth once daily. - blood sugar diagnostic (BLOOD GLUCOSE TEST) test strip Test blood sugar(s) 2 times daily. Dx: Other DM Code E11.42 Insulin: No - albuterol HFA (PROVENTIL HFA, VENTOLIN HFA) 90 mcg/actuation inhaler Inhale 2 Puffs as instructed every 4 hours as needed. - Lancets lancets Test blood sugar(s) 2 times daily. Dx: Other DM Code E11.42 Insulin: No - Blood-Glucose Meter Test Blood Sugars 2 times daily Dx E11.42 Insulin: No - flash glucose sensor (FREESTYLE ADRIAN 10 DAY SENSOR) kit 1 Each one time a week. Check blood sugar twice a day - flash glucose scanning reader (FREESTYLE ADRIAN 10 DAY READER) 1 Device twice daily. Check blood sugar twice a day Problem List As Of Date 10/04/2024 Noted Resolved Mixed hyperlipidemia [E78.2] 09/13/2012 Depression with anxiety [F41.8] Neck pain [M54.2] 10/04/2013 Carpal tunnel syndrome of right wrist [G56.01] 10/27/2013 DDD (degenerative disc disease), cervical [M50.* CAD (coronary artery disease), [place] coronary *05/14/2014 Ischemic cardiomyopathy [I25.5] 05/25/2014 Presence of drug coated stent in LAD coronary a*05/25/2014 Combined senile cataract [H25.819] 10/12/2014 06/10/2017 Vitreous floaters of both eyes [H43.393] 10/12/2014 Type 2 diabetes mellitus without retinopathy (H*10/12/2014 Tachycardia [R00.0] 10/30/2014 Chronic systolic congestive heart failure (HCC)*03/13/2015 Gastroesophageal reflux disease without esophag*03/13/2015 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] 03/13/2015 Smoker [F17.200] 03/13/2015 Diabetic eye exam (HCC) [Z01.00, E11.9] 05/15/2015 Uncontrolled type 2 diabetes mellitus with hype*07/18/2015 Type 2 diabetes mellitus with diabetic neuropat*11/20/2015 Combined forms of age-related cataract, bilater*06/15/2016 Screening for colon cancer [Z12.11] 12/29/2016 Obesity, Class II, BMI 35-39.9 [E66.812] 05/13/2017 Prostate disorder [N42.9] 11/03/2017 Encounter for Medicare annual wellness exam [Z0*11/17/2017 Combined forms of age-related cataract of both *06/15/2016 Essential hypertension [I10] 09/19/2018 Elevated PSA [R97.20] 01/26/2019 09/20/2024 Medication management [Z79.899] 07/24/2019 Iron deficiency anemia [D50.9] 09/26/2019 DDD (degenerative disc disease), lumbar [M51.36*12/07/2019 Arthritis of both knees [M17.0] 12/12/2019 Corneal scar, 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 Normal [facility] BRIEF OP NOTon 09-26-2024 BRIEF OP NOT HNO ID: [id number] Author: BEBETO CLARK MD Service: Cardiovascular Medicine Author Type: Physician Type: Brief Op Note Filed: 09/26/2024 12:13 Note Text: LEFT HEART CATHETERIZATION PROCEDURE NOTE Surgery/Procedure Date: 09/26/2024 PRIMARY CARE PHYSICIAN: Jorden Hartmann MD Referring rn faculty: Dr. Monico Amaro MD SUBJECTIVE: CHIEF COMPLAINT: HPI: This is a 74 year old White male presenting with cardiomyopathy. He has longstanding history of coronary artery disease. He has history of hypertension, hyperlipidemia, presented with NSTEMI on 05/14/2014 and subsequently underwent PCI of proximal LAD (3.5x28 Promus YESENIA, postdilated to 4.0) and PCI of mid LAD with 3.0 x 16 mm Promus drug-eluting stent. He was seen for cardiology follow-up. A 2D echo done on 09/05/2024 demonstrated EF of 22? 5 percent. A nuclear stress test done on 09/05/2024 demonstrated a small fixed defect in the LAD territory with EF of 27%. Presents today for left heart cath/possible PCI. Consent: Informed consent was obtained after the risks, benefits, and alternatives to and of this procedure were discussed in detail with the patient. Procedure in Detail: The patient was brought to the cardiac catheterization laboratory, prepped and draped in the usual sterile fashion. Anxiolysis was achieved with intravenous and intravenous fentanyl/Versed. Local anesthesia was achieved over the right radial with 1% lidocaine. A pre-flushed 6-Iraqi sheath was inserted into the right radial artery via the Seldinger technique without complications. Retrograde percutaneous diagnostic coronary angiography and LVEDP measured were performed using a Chelsey left 4 catheter, a JR4 catheter. There were no complications of the procedure. Findings: Angiography: LEFT MAIN: Trifurcates into LAD, small ramus intermediate branch and nondominant circumflex. RAMUS INTERMEDIATE: The ostium of ramus intermediate is jailed by the LAD stent without any flow limitation. LEFT CIRCUMFLEX: The AV groove branch has subtotal occlusion. Gives off a large OM1. The circumflex has mild disease in the proximal portion. LEFT ANTERIOR DESCENDING: There is a stent in the proximal LAD with critical 95% stenosis affecting the proximal portion. There is a segment of LAD, free of disease between the stent in the mid LAD stent. The mid LAD stent has mild ISR. The flow in LAD is consistent with DAVID II. RIGHT CORONARY ARTERY: It is a dominant artery. Has focal 50% stenosis in the midportion. By DFR assessment, it is nonsignificant. LEFT VENTRICULOGRAPHY: The EDP was normal at 13 mmHg. DFR across mid RCA: After initial angiography, the RCA was selectively engaged using 6 Iraqi JR4 guide catheter. Using comet wire, DFR was assessed across the mid RCA. It was nonsignificant at 0.96. Impressions: He is a 74-year-old male with history of hypertension hyperlipidemia, diabetes mellitus, prior NSTEMI requiring PCI to proximal and mid LAD, presents for workup of LV dysfunction which has not significantly changed over the years. CAD demonstrates critical ISR affecting the proximal LAD stent. At this point, the procedure was terminated. All diagnostic wires and catheters were removed. Recommendations: 1. Continue GDMT for heart failure. Will consider CT surgical evaluation for possible surgical revascularization. 2. His Plavix has to be changed as outpatient to aspirin. 3. Statin use 4. Secondary cardiac prevention measures. SIGNATURE: Bebeto Clark MD, MD PATIENT NAME: Victor Hugo Sheth DATE: September 26, 2024 TIME: 12:[address] [facility] CARD CATH DIAGNOSTICon 09-26 CARD CATH DIAGNOSTIC Site Id: [facility] Lab #: DEFAULT Study Date: 09/26/2024 Start Time: End Time: Name Chapis Bebeto Clark MD PROC 1 Toby Hooks PROC SCRUB 1 Latrice Aguilar RN PROC CIRC 1 Latrice Mayo RN PROC RECORD 1 + + PATIENT INFORMATION + + Name: [facility] : 1950 Age: 74 years Gender: Height: 67 in / 170 cm Weight: 222.20 lb / 100.79 kg BMI: 34.80 kg/m BSA: 2.11 m + --+ CLINICAL HISTORY/INDICATIONS + --+ Appropriate Use Criteria (Diag): Known or suspected cardiomyopathy with or without heart failure; AUC score = 7. Procedural Status: Elective CAD Presentation: Stable Angina Angina Classification (within 2 weeks): CCS II Heart Failure: NYHA Class I Cardiomyopathy or LV Dysfunction Pre-Op Evaluation before Non-Card Surg: No Cardiogenic Shock: No Cardiac Arrest: No Clinical History: This is a 74 year old White male presenting with cardiomyopathy. He has longstanding history of coronary artery disease. He has history of hypertension, hyperlipidemia, presented with NSTEMI on 05/14/2014 and subsequently underwent PCI of proximal LAD (3.5x28 Promus YESENIA, postdilated to 4.0) and PCI of mid LAD with 3.0 x 16 mm Promus drug-eluting stent. He was seen for cardiology follow-up. A 2D echo done on 09/05/2024 demonstrated EF of 22 5 percent. A nuclear stress test done on 09/05/2024 demonstrated a small fixed defect in the LAD territory with EF of 27%. Presents today for left heart cath/possible PCI. + + DIAGNOSTIC FINDINGS + + Coronary Anatomy: Right Dominant Injection Site(s): Coronary Artery LMT: The LMT is normal. Additional Comment: Trifurcates into LAD, small ramus intermediate branch and nondominant circumflex. LAD: The proximal LAD is narrowed 95 % - focal disease and ISR. The mid LAD is narrowed 20 % - focal disease and ISR. Additional Comment: There is a stent in the proximal LAD with critical 95% stenosis affecting the proximal portion. There is a segment of LAD, free of disease between the stent in the mid LAD stent. The mid LAD stent has mild ISR. The flow in LAD is consistent with DAVID II. LCX: The Circumflex has mild luminal irregularities. 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 Additional Comment: The AV groove branch has subtotal occlusion. Gives off a large OM1. The circumflex has mild disease in the proximal portion. RAMUS: The ostial Ramus is narrowed 10 % - focal disease. Additional Comment: The ostium of ramus intermediate is jailed by the LAD stent without any flow limitation. RCA: The mid RCA is narrowed 50 % - focal disease. The IFR is 0.96. Additional Comment: It is a dominant artery. Has focal 50% stenosis in the midportion. By DFR assessment, it is nonsignificant(0.96). Left Ventriculogram:The EDP was normal at 13 mmHg. FFR Results:DFR across mid RCA: After initial angiography, the RCA was selectively engaged using 6 Iraqi JR4 guide catheter. Using comet wire, DFR was assessed across the mid RCA. It was nonsignificant at 0.96. + + IMPRESSION/PLAN + + Impression:He is a 74-year-old male with history of hypertension hyperlipidemia, diabetes mellitus, prior NSTEMI requiring PCI to proximal and mid LAD, presents for workup of LV dysfunction which has not significantly changed over the years. CAD demonstrates critical ISR affecting the proximal LAD stent. Recommended Treatment: Medical Therapy and CABG. Plan: 1. Continue GDMT for heart failure. Will consider CT surgical evaluation for possible surgical revascularization. 2. His Plavix has to be changed as outpatient to aspirin. 3. Statin use 4. Secondary cardiac prevention measures + + HEMODYNAMICS - XPER + + + +------+-- ----+-------+-----+------+- -----+ Measurement Name Sys Alley End Alley Mean A Wave V Wave + +------+-- ----+-------+-----+------+- -----+ AO 124.00 55.00 77.00 + +------+-- ----+-------+-----+------+- -----+ LV 126.00 0.00 13.00 + +------+-- ----+-------+-----+------+- -----+ LVp 97.00 4.00 10.00 + +------+-- ----+-------+-----+------+- -----+ AOp 94.00 60.00 72.00 + +------+-- ----+-------+-----+------+- -----+ AO 0.00 -12.00 -8.00 + +------+-- ----+-------+-----+------+- -----+ AO 78.00 50.00 59.00 + +------+-- ----+-------+-----+------+- -----+ AO 109.00 68.00 84.00 + +------+-- ----+-------+-----+------+- -----+ AO 122.00 67.00 90.00 + +------+-- ----+-------+-----+------+- -----+ AO 90.00 49.00 63.00 + +--- (more content not included)... Normal [facility] CNOVon 09-26-2024 CNOV Office Visit (AGVASA CC) VICTOR HUGO SHETH ([id number]) 1950 M Date Time Provider Department [facility] 2[facility] your visit today, we recorded the following information about you: Pulse Blood pressure Weight Height 105/minute 122/70 102.7 kg 1.702 m Earlene Marshall LPN 09/26/2024 3:47 PM Signed CARDIAC REHAB 5 METER WALK TEST SERVICE DATE: 09/26/2024 SERVICE TIME: 2:29pm 5.45 sec 5.08 sec 5.05 sec ASSESSMENT: SIGNATURE: Earlene Marshall LPN PATIENT NAME: Victor Hugo Sheth DATE: September 26, 2024 TIME: 2:34 PM PAGER/CONTACT #: [phone] Zo Bowden MD 09/26/2024 3:47 PM Signed PATIENT TYPE: New Visit to determine Surgery: Yes PCP: Jorden Hartmann MD REFERRING PROVIDER: No ref. provider found HPI: Victor Hugo Sheth is a 74 year old male seen in consultation at the request of for opinion regarding treatment options for CAD. Comorbidities include HTN, Dyslipidemia, DM, and ischemic cardiomyopathy. Mr. Sheth presents to clinic with his lifelong friend following LHC done today. He denies chest pain, shortness of breath, or palpitations. He does state his energy level has been poor. He states he had an echo in August which prompted the LHC done today. On today's LHC, he was found to have critical proximal LAD disease. Recent TTE shows mild to moderate MR and EF 22%. HISTORIES: PAST MEDICAL HISTORY Diagnosis Date Advance directive discussed with patient 10/22/2021 Discussed 09/2021 Arthritis of both knees 12/12/2019 CAD (coronary artery disease), [place] coronary artery 05/14/[address] Khalil [facility] 05/14/[address] [facility] report from [facility], showed 85% stenosis in pLAD followed by 95% stenosis and 50-75% stenosis in mid LAD. Minimal disease in LCx and LCA. RCA with proximal and distal 25% stenosis. [facility] 05/17 s/p YESENIA x2 to LAD Plan: Dc home with follow-up Continue Plavix Carpal tunnel syndrome of right wrist 10/27/2013 EMG/NCT 10/27/13=mild right CTS Chronic systolic congestive heart failure (HCC) 03/13/2015 08/02/2018: Home BP Cuff Validated. Home BP: 118/71 Office BP: 116/72 Combined forms of age-related cataract of both eyes 06/15/2016 Combined forms of age-related cataract, bilateral 06/15/2016 Congestive heart failure (HCC) 03/13/2015 COPD with chronic bronchitis (HCC) 03/13/2015 Corneal scar, right eye 07/18/2020 DDD (degenerative disc disease), cervical DDD (degenerative disc disease), lumbar 12/07/2019 Depression with anxiety Diabetic eye exam ([facility]) 05/15/2015 Last done 06/27/2018: no retinopathy. Dry eye syndrome of both eyes 07/18/2020 Elevated PSA 01/26/2019 Encounter for Medicare annual wellness exam 11/17/2017 Medicare Part B: 12/23/2016 last done: 09/10/2023 Does not want ELMO or colonoscopy Essential hypertension 09/19/2018 Gastroesophageal reflux disease without esophagitis 03/13/2015 History of compression fracture of spine 1971 high school football Iron deficiency anemia 09/26/2019 Iron deficiency anemia 09/26/2019 EGD and colonoscopy done 10/2019 Ischemic cardiomyopathy 05/25/2014 Leukocytosis 09/19/2018 Repeat 10/[address] in [address] 10/22/2021 DPA: Jon (son) Medicare annual wellness visit, initial 11/17/2017 Medicare Part B: 12/23/2016 last done: 01/26/2019 Does not want ELMO or colonoscopy Mixed hyperlipidemia 09/13/2012 Neck pain 10/04/2013 Obesity, Class II, BMI 35-39.9 05/13/2017 Presence of drug coated stent in LAD coronary artery 05/25/2014 Prostate cancer (HCC) 03/03/2024 Smoker 03/13/2015 Started at 20 yo up to 2 PPD. as of 02/2015 only 5 cigs a day Tachycardia 10/30/2014 Thrombocytosis 09/19/2018 Repeat 10/2018 ok Type 2 diabetes mellitus with diabetic neuropathy, without long-term current use of insulin (HCC) 11/20/2015 Type 2 diabetes mellitus without retinopathy (HCC) 10/12/2014 Vitreous floaters of both eyes 10/12/2014 PAST SURGICAL HISTORY Procedure Laterality Date COLONOSCOPY FLX DX W/COLLJ SPEC WHEN PFRMD 11/16/2019 Colonoscopy ESOPHAGOGASTRODUODENOSCOPY TRANSORAL DIAGNOSTIC 11/16/2019 EGD HEART CATHETERIZATION 05/14/2014 triple vessel disease, YESENIA x 2 to the prox and mid LAD IMMUNOCHEMICAL FECAL OCCULT BLOOD TEST 03/08/2019 negative PAST SURGICAL HISTORY OF 1970 vertebral fracture in football? no repair. REPAIR FINGER TENDON left hand- cut tendons with chain saw TONSILLECTOMY AND ADENOIDECTOMY AGE 14/> 1982 TONSILLECTOMY HX FAMILY HISTORY Problem Relation Age of Onset Emphysema Father Coronary Artery Disease Brother CABG Hypertension Brother Prostate Cancer Brother Social History Tobacco Use Smoking status: Every Day Current packs/day: 0.30 Average packs/day: 0.3 packs/day for 40.0 years (12.0 ttl pk-yrs) Types: Cigarettes Passive exposure: Never Smokeless tobacco: Never Tobacco comments: started sm (more content not included)... Normal [facility] HISTORY PHYSICALon HISTORY PHYSICAL HNO ID: [id number] Author: BEBETO CLARK MD Service: Cardiovascular Medicine Author Type: Physician Type: H&P Filed: 09/26/2024 11:06 Note Text: HANDP PRE-CARDIAC CATHETERIZATION SERVICE DATE: 09/26/2024 SERVICE TIME: 11:02 AM PRIMARY CARE PHYSICIAN: Jorden Hartmann MD Referring rn faculty: Dr. Monico Amaro MD SUBJECTIVE: CHIEF COMPLAINT: HPI: This is a 74 year old White male presenting with cardiomyopathy. He has longstanding history of coronary artery disease. He has history of hypertension, hyperlipidemia, presented with NSTEMI on 05/14/2014 and subsequently underwent PCI of proximal LAD (3.5x28 Promus YESENIA, postdilated to 4.0) and PCI of mid LAD with 3.0 x 16 mm Promus drug-eluting stent. He was seen for cardiology follow-up. A 2D echo done on 09/05/2024 demonstrated EF of 22? 5 percent. A nuclear stress test done on 09/05/2024 demonstrated a small fixed defect in the LAD territory with EF of 27%. Presents today for left heart cath/possible PCI. PAST MEDICAL HISTORY Diagnosis Date Advance directive discussed with patient 10/22/2021 Discussed 09/2021 Arthritis of both knees 12/12/2019 CAD (coronary artery disease), [place] coronary artery 05/14/[address] Khalil [facility] 05/14/[address] [facility] report from [facility], showed 85% stenosis in pLAD followed by 95% stenosis and 50-75% stenosis in mid LAD. Minimal disease in LCx and LCA. RCA with proximal and distal 25% stenosis. [facility] 05/17 s/p YESENIA x2 to LAD Plan: Dc home with follow-up Continue Plavix Carpal tunnel syndrome of right wrist 10/27/2013 EMG/NCT 10/27/13=mild right CTS Chronic systolic congestive heart failure (HCC) 03/13/2015 08/02/2018: Home BP Cuff Validated. Home BP: 118/71 Office BP: 116/72 Combined forms of age-related cataract of both eyes 06/15/2016 Combined forms of age-related cataract, bilateral 06/15/2016 Congestive heart failure (HCC) 03/13/2015 COPD with chronic bronchitis (HCC) 03/13/2015 Corneal scar, right eye 07/18/2020 DDD (degenerative disc disease), cervical DDD (degenerative disc disease), lumbar 12/07/2019 Depression with anxiety Diabetic eye exam ([facility]) 05/15/2015 Last done 06/27/2018: no retinopathy. Dry eye syndrome of both eyes 07/18/2020 Elevated PSA 01/26/2019 Encounter for Medicare annual wellness exam 11/17/2017 Medicare Part B: 12/23/2016 last done: 09/10/2023 Does not want ELMO or colonoscopy Essential hypertension 09/19/2018 Gastroesophageal reflux disease without esophagitis 03/13/2015 History of compression fracture of spine 1971 high school football Iron deficiency anemia 09/26/2019 Iron deficiency anemia 09/26/2019 EGD and colonoscopy done 10/2019 Ischemic cardiomyopathy 05/25/2014 Leukocytosis 09/19/2018 Repeat 10/[address] ok [address] in place 10/22/2021 DPA: Jon (son) Medicare annual wellness visit, initial 11/17/2017 Medicare Part B: 12/23/2016 last done: 01/26/2019 Does not want ELMO or colonoscopy Mixed hyperlipidemia 09/13/2012 Neck pain 10/04/2013 Obesity, Class II, BMI 35-39.9 05/13/2017 Presence of drug coated stent in LAD coronary artery 05/25/2014 Prostate cancer (HCC) 03/03/2024 Smoker 03/13/2015 Started at 20 yo up to 2 PPD. as of 02/2015 only 5 cigs a day Tachycardia 10/30/2014 Thrombocytosis 09/19/2018 Repeat 10/2018 ok Type 2 diabetes mellitus with diabetic neuropathy, without long-term current use of insulin (HCC) 11/20/2015 Type 2 diabetes mellitus without retinopathy (HCC) 10/12/2014 Vitreous floaters of both eyes 10/12/2014 PAST SURGICAL HISTORY Procedure Laterality Date COLONOSCOPY FLX DX W/COLLJ SPEC WHEN PFRMD 11/16/2019 Colonoscopy ESOPHAGOGASTRODUODENOSCOPY TRANSORAL DIAGNOSTIC 11/16/2019 EGD HEART CATHETERIZATION 05/14/2014 triple vessel disease, YESENIA x 2 to the prox and mid LAD IMMUNOCHEMICAL FECAL OCCULT BLOOD TEST 03/08/2019 negative PAST SURGICAL HISTORY OF 1971 vertebral fracture in football? no repair. REPAIR FINGER TENDON left hand- cut tendons with chain saw TONSILLECTOMY AND ADENOIDECTOMY AGE 14/> 1980 TONSILLECTOMY HX FAMILY HISTORY Problem Relation Age of Onset Emphysema Father Coronary Artery Disease Brother CABG Hypertension Brother Prostate Cancer Brother Social History Tobacco Use Smoking status: Every Day Current packs/day: 0.30 Average packs/day: 0.3 packs/day for 40.0 years (12.0 ttl pk-yrs) Types: Cigarettes Passive exposure: Never Smokeless tobacco: Never Tobacco comments: started smoking 20yo, usually 5 cigarettes per day Vaping Use Vaping status: Never Used Substance Use Topics Alcohol use: Yes Comment: few drinks per year Drug use: Never MEDICATIONS: oxybutynin ER (DITROPAN XL) 10 mg 24 hr tablet, Take 1 tablet by mouth once daily., Disp: 30 tablet, Rfl: , 09/25/2024 metFORMIN (GLUCOPHAGE) 1,000 mg tablet, Take 1 tablet by mouth two times a day with meals., Disp: 180 tablet, Rfl: , 09/25/2024 metoprolol succinate ER (TOPR (more content not included)... Normal [facility] ALBUMIN/CREATININE RATIO, UR INEon 09-25-2024 Albumin DL <= 20 mg/L (U) [Mass/Vol] mg/dL Normal [facility] Comment on above: Order Comment: Speci men Type: BLOOD SPECIMEN Ordering Facility: [facility] Address: [address] [place] [address] Performed By: #### 5 7021-8 #### [facility] [id number] [address] [place] [address] [place] Albumin/Creatinine (U) [Mass ratio] <18 Normal <30 [facility] Comment on above: Order Comment: Brian men Type: BLOOD SPECIMEN Ordering Facility: [facility] Address: [address] [place] [address] Result Comment: Adul t Male and Female Nephrotic Criteria: <30 mg/g is considered normal to mildly increased 30-300 mg/g is considered moderately increased >300 mg/g is considered severely increased KDIGO. (2013). KDIGO 2012 Clinical Practice Guideline for the Evaluation and Management of Chronic Kidney Disease. Official Journal of the International Society of Nephrology, 3(1), 1-150. Performed By: #### 5 7021-8 #### [facility] [id number] [address] [place] [address] [place] Creatinine (U) [Mass/Vol] 66.0 mg/dL Normal 20.0-300.0 [facility] Comment on above: Order Comment: Cliffordi antoinette Type: BLOOD SPECIMEN Ordering Facility: [facility] Address: [address] [place] [address] Performed By: #### 5 7021-8 #### [facility] CLIA [id number] [address] [place] [address] [place] Comprehensive metabolic 2000 panelon 09-25-2024 Albumin [Mass/Vol] 4.2 g/dL Normal 3.9-4.9 [facility] Comment on above: Order Comment: Speci men Type: BLOOD SPECIMEN Ordering Facility: [facility] Address: [address] [place] [address] Performed By: #### 5 7021-8 #### [facility] CLIA [id number] [address] [place] [address] [place] ALP [Catalytic activity/Vol] 139 U/L High 38-113 [facility] Comment on above: Order Comment: Speci men Type: BLOOD SPECIMEN Ordering Facility: [facility] Address: [address] [place] [address] Performed By: #### 5 7021-8 #### [facility] CLIA [id number] [address] [place] [address] [place] ALT [Catalytic activity/Vol] 18 U/L Normal 10-54 [facility] Comment on above: Order Comment: Speci men Type: BLOOD SPECIMEN Ordering Facility: [facility] Address: [address] [place] [address] Performed By: #### 5 7021-8 #### [facility] CLIA [id number] [address] [place] [address] [place] Anion gap [Moles/Vol] 14 mmol/L Normal 8-15 [facility] Comment on above: Order Comment: Speci men Type: BLOOD SPECIMEN Ordering Facility: [facility] Address: [address] [place] [address] Performed By: #### 5 7021-8 #### [facility] CLIA [id number] [address] [place] [address] [place] AST [Catalytic activity/Vol] 13 U/L Low 14-40 [facility] Comment on above: Order Comment: Speci men Type: BLOOD SPECIMEN Ordering Facility: [facility] Address: [address] [place] [address] Performed By: #### 5 7021-8 #### [facility] CLIA [id number] [address] [place] [address] [place] Bilirubin [Mass/Vol] 0.3 mg/dL Normal 0.2-1.3 [facility] Comment on above: Order Comment: Speci men Type: BLOOD SPECIMEN Ordering Facility: [facility] Address: [address] [place], [place] [address] Performed By: #### 5 7021-8 #### [facility] CLIA [id number] [address] [place] [address] [place] Calcium [Mass/Vol] 10.1 mg/dL Normal 8.5-10.2 [facility] Comment on above: Order Comment: Speci men Type: BLOOD SPECIMEN Ordering Facility: [facility] Address: [address] [place] [address] Performed By: #### 5 7021-8 #### [facility] CLIA [id number] [address] [place] [address] [place] Chloride [Moles/Vol] 97 mmol/L Low 98-107 [facility] Comment on above: Order Comment: Speci men Type: BLOOD SPECIMEN Ordering Facility: [facility] Address: [address] [place] [address] Performed By: #### 5 7021-8 #### [facility] CLIA [id number] [address] [place] [address] [place] CO2 [Moles/Vol] 23 mmol/L Normal 22-30 [facility] Comment on above: Order Comment: Speci men Type: BLOOD SPECIMEN Ordering Facility: [facility] Address: [address] [place] [address] Performed By: #### 5 7021-8 #### [facility] CLIA [id number] [address] [place] [address] [place] Creatinine [Mass/Vol] 0.96 mg/dL Normal 0.73-1.22 [facility] Comment on above: Order Comment: Brian curry Type: BLOOD SPECIMEN Ordering Facility: [facility] Address: [address] [place] [address] Performed By: #### 5 7021-8 #### [facility] [id number] [address] [place] [address] [place] eGFRcr SerPlBld CKD-EPI 2020 84 mL/min/1.73m??? Normal >=60 [facility] Comment on above: Order Comment: Brian curry Type: BLOOD SPECIMEN Ordering Facility: [facility] Address: [address] [place] [address] Result Comment: Apple mated Glomerular Filtration Rate (eGFR) is calculated using the 2020 CKD-EPI creatinine equation. This equation utilizes serum creatinine, sex, and age as parameters. The creatinine assay has traceable calibration to isotope dilution-mass spectrometry. Refer to KDIGO guidelines for clinical interpretation. In patients with unstable renal function, e.g. those with acute kidney injury, the eGFR may not accurately reflect actual GFR. Performed By: #### 5 7021-8 #### [facility] [id number] [address] [place] [address] [place] Glucose [Mass/Vol] 176 mg/dL High 74-99 [facility] Comment on above: Order Comment: Brian curry Type: BLOOD SPECIMEN Ordering Facility: [facility] Address: [address] [place] [address] Result Comment: The [place] Diabetes Association (ADA) provides guidance for cutoff values for fasting glucose and random glucose. The ADA defines fasting as no caloric intake for at least 8 hours. Fasting plasma glucose results between 100 to 125 mg/dL indicate increased risk for diabetes (prediabetes). Fasting plasma glucose results greater than or equal to 126 mg/dL meet the criteria for diagnosis of diabetes. In the absence of unequivocal hyperglycemia, results should be confirmed by repeat testing. In a patient with classic symptoms of hyperglycemia or hyperglycemic crisis, random plasma glucose results greater than or equal to 200 mg/dL meet the criteria for diagnosis of diabetes. Reference: Standards of Medical Care in Diabetes 2016, [place] Diabetes Association. Diabetes Care. 2016.39(Suppl 1). Performed By: #### 5 7021-8 #### [facility] [id number] [address] [place] [address] [place] Potassium [Moles/Vol] 4.8 mmol/L Normal 3.7-5.1 [facility] Comment on above: Order Comment: Speci men Type: BLOOD SPECIMEN Ordering Facility: [facility] Address: [address] [place] [address] Performed By: #### 5 7021-8 #### [facility] [id number] [address] [place] [address] [place] Protein [Mass/Vol] 7.2 g/dL Normal 6.3-8.0 [facility] Comment on above: Order Comment: Speci men Type: BLOOD SPECIMEN Ordering Facility: [facility] Address: [address] [place] [address] Performed By: #### 5 7021-8 #### [facility] [id number] [address] [place] [address] [place] Sodium [Moles/Vol] 134 mmol/L Low 136-144 [facility] Comment on above: Order Comment: Speci men Type: BLOOD SPECIMEN Ordering Facility: [facility] Address: [address] [place] [address] Performed By: #### 5 7021-8 #### [facility] [id number] [address] [place] [address] [place] Urea nitrogen [Mass/Vol] 29 mg/dL High 9-24 [facility] Comment on above: Order Comment: Speci men Type: BLOOD SPECIMEN Ordering Facility: [facility] Address: [address] [place] [address] Performed By: #### 5 7021-8 #### [facility] CLIA [id number] [address] [place] [address] [place] HbA1c (Bld)on 09-25-2024 Average glucose Estimated from glycated hemoglobin (Bld) [Mass/Vol] 174 mg/dL Normal [facility] Comment on above: Order Comment: Brian curry Type: BLOOD SPECIMEN Ordering Facility: [facility] Address: [address] [place] [address] Result Comment: eAG: (Estimated average glucose) is a calculated value from HgbA1c and is financial representative of the average blood glucose level in the last 2-3 month period. Performed By: #### A BLOSSOMISOP #### [facility] CLIA [id number] [address] [place] [address] [place] OF [facility] HbA1c (Bld) [Mass fraction] 7.7 % High 4.3-5.6 [facility] Comment on above: Order Comment: Brian curry Type: BLOOD SPECIMEN Ordering Facility: [facility] Address: [address] [place] [address] Result Comment: [place] Diabetes Association guidelines indicate that patients with HgbA1c in the range 5.7-6.4% are at increased risk for development of diabetes, and intervention by lifestyle modification may be beneficial. HgbA1c greater or equal to 6.5% is considered diagnostic of diabetes. Performed By: #### A LKISOP #### [facility] CLIA [id number] [address] [place] [address] [place] LIPID PANEL, NONFASTINGon Cholesterol [Mass/Vol] 155 mg/dL Normal <200 [facility] Comment on above: Order Comment: Brian curry Type: BLOOD SPECIMEN Ordering Facility: [facility] Address: [address] [place] [address] Result Comment: <200 mg/dL, Desirable 200-239 mg/dL, Borderline high >239 mg/dL, High Performed By: #### A LKISOP #### [facility] CLIA [id number] [address] [place] [address] HDL CHOLESTEROL, NF 34 mg/dL Low >39 [facility] Comment on above: Order Comment: Brian curry Type: BLOOD SPECIMEN Ordering Facility: [facility] Address: [address] [place] [address] Result Comment: 40-5 9 mg/dL, Acceptable >59 mg/dL, High: Negative risk factor for coronary heart disease <40 mg/dL, Low: Positive risk factor for coronary heart disease Performed By: #### A LKISOP #### [facility] CLIA [id number] [address] [place] [address] LDL CHOLESTEROL CALCULATED, NF 86 mg/dL Normal <100 [facility] Comment on above: Order Comment: Brian curry Type: BLOOD SPECIMEN Ordering Facility: [facility] Address: [address] [place] [address] Result Comment: <100 mg/dL, Optimal 100-129 mg/dL, Near optimal/above optimal 130-159 mg/dL, Borderline high 160-189 mg/dL, High >189 mg/dL, Very high Secondary prevention optimal LDL Cholesterol levels are recommended to be <70 mg/dL LDL cholesterol is calculated using the Saleh-NIH equation. Performed By: #### A LKISOP #### [facility] CLIA [id number] [address] [place] [address] LDL/HDL RATIO, NF 2.53 mg/dL Normal <2.54 [facility] Comment on above: Order Comment: Brian antoinette Type: BLOOD SPECIMEN Ordering Facility: [facility] Address: [address] [place] [address] Result Comment: Ledy dietrich: 1. National Cholesterol Education Program ATP III Guideline At-A-Glance Quick Desk Reference: National Heart, Lung, and Blood [place]. National Institutes of Health. 2001: NIH Publication No. 01-3305. 2. An International Atherosclerosis Society position paper: global recommendations for the management of dyslipidemia: executive summary, Atherosclerosis. 2014: 232(2):410-413. Performed By: #### A LKISOP #### [facility] CLIA [id number] [address] [place] [address] [place] NON HDL CHOL, NF 121 mg/dL Normal <130 [facility] Comment on above: Order Comment: Speci men Type: BLOOD SPECIMEN Ordering Facility: [facility] Address: [address] [place] [address] Result Comment: <130 mg/dL, Optimal 130-159 mg/dL, Near optimal/above optimal 160-189 mg/dL, Borderline high 190-219 mg/dL, High >219 mg/dL, Very high Secondary prevention optimal non HDL Cholesterol levels are recommended to be <100 mg/dL Performed By: #### A LKISOP #### [facility] CLIA [id number] [address] [place] [address] [place] T CHOL/HDL RATIO NF 4.56 mg/dL Normal <5.10 [facility] Comment on above: Order Comment: Speci men Type: BLOOD SPECIMEN Ordering Facility: [facility] Address: [address] [place] [address] Performed By: #### A LKISOP #### [facility] CLIA [id number] [address] [place] [address] [place] TRIGLYCERIDES, NF 208 mg/dL High <150 [facility] Comment on above: Order Comment: Speci men Type: BLOOD SPECIMEN Ordering Facility: [facility] Address: [address] [place] [address] Result Comment: <150 mg/dL, Normal 150-199 mg/dL, Borderline high 200-499 mg/dL, High >499 mg/dL, Very high Performed By: #### A LKISOP #### [facility] CLIA [id number] [address] [place] [address] [place] VLDL CHOLESTEROL, NF 33 mg/dL High <30 [facility] Comment on above: Order Comment: Speci men Type: BLOOD SPECIMEN Ordering Facility: [facility] Address: [address] [place] [address] Performed By: #### A LKISOP #### [facility] CLIA [id number] [address] [place], [place] [address] [address] [place] Urinalysis complete panel (U )on 09-25-2024 Bacteria LM.HPF (Urine sed) [#/Area] Negative Normal Negative [facility] Comment on above: Order Comment: Speci men Type: BLOOD SPECIMEN Ordering Facility: [facility] Address: [address] [place] [address] Performed By: #### 5 7021-8 #### [facility] CLIA [id number] [address] [place] [address] [place] Bilirubin Ql (U) Negative Normal Negative [facility] Comment on above: Order Comment: Speci men Type: BLOOD SPECIMEN Ordering Facility: [facility] Address: [address] [place] [address] Performed By: #### 5 7021-8 #### [facility] CLIA [id number] [address] [place] [address] [place] Clarity (Unsp spec) Clear Normal Clear [facility] Comment on above: Order Comment: Speci men Type: BLOOD SPECIMEN Ordering Facility: [facility] Address: [address] [place] [address] Performed By: #### 5 7021-8 #### [facility] CLIA [id number] [address] [place] [address] OF [facility] Color (U) Yellow Normal Yellow [facility] Comment on above: Order Comment: Speci men Type: BLOOD SPECIMEN Ordering Facility: [facility] Address: [address] [place] [address] Performed By: #### 5 7021-8 #### [facility] CLIA [id number] [address] [place] [address] [place] Epithelial cells LM.HPF (Urine sed) [#/Area] None Seen Normal [facility] Comment on above: Order Comment: Speci men Type: BLOOD SPECIMEN Ordering Facility: [facility] Address: [facility] [place] [address] Performed By: #### 5 7021-8 #### [facility] CLIA [id number] [address] [place] [address] Glucose Test strip (U) [Mass/Vol] 3+ Abnormal Negative [facility] Comment on above: Order Comment: Speci men Type: BLOOD SPECIMEN Ordering Facility: [facility] Address: [address] [place] [address] Performed By: #### 5 7021-8 #### [facility] CLIA [id number] [address] [place] [address] [place] Hemoglobin Ql (U) Negative Normal Negative [facility] Comment on above: Order Comment: Speci men Type: BLOOD SPECIMEN Ordering Facility: [facility] Address: [address] [place] [address] Performed By: #### 5 7021-8 #### [facility] CLIA [id number] [address] [place] [address] [place] Hyaline casts (Urine sed) [#/Area] 0 /[LPF] Normal 0 /LPF [facility] Comment on above: Order Comment: Speci men Type: BLOOD SPECIMEN Ordering Facility: [facility] Address: [address] [place] [address] Performed By: #### 5 7021-8 #### [facility] CLIA [id number] [address] [place] [address] [place] Ketones Ql (U) Negative Normal Negative [facility] Comment on above: Order Comment: Speci men Type: BLOOD SPECIMEN Ordering Facility: [facility] Address: [address] [place] [address] Performed By: #### 5 7021-8 #### [facility] CLIA [id number] [address] [place] [address] [place] Leukocyte esterase Test strip Ql (U) Negative Normal Negative [facility] Comment on above: Order Comment: Speci men Type: BLOOD SPECIMEN Ordering Facility: [facility] Address: [address] [place] [address] Performed By: #### 5 7021-8 #### [facility] CLIA [id number] [address] [place] [address] [place] Nitrite Ql (U) Negative Normal Negative [facility] Comment on above: Order Comment: Speci men Type: BLOOD SPECIMEN Ordering Facility: [facility] Address: [address] [place] [address] Performed By: #### 5 7021-8 #### [facility] [id number] [address] [place] [address] [place] pH (U) 6.0 [pH] Normal 5.0-8.0 [facility] Comment on above: Order Comment: Speci men Type: BLOOD SPECIMEN Ordering Facility: [facility] Address: [address] [place] [address] Performed By: #### 5 7021-8 #### [facility] CLIA [id number] [address] [place] [address] [place] Protein (U) [Mass/Vol] Negative Normal Negative [facility] Comment on above: Order Comment: Speci men Type: BLOOD SPECIMEN Ordering Facility: [facility] Address: [address] [place] [address] Performed By: #### 5 7021-8 #### [facility] CLIA [id number] [address] [place] [address] [place] RBC LM.HPF (Urine sed) [#/Area] 0-2 /HPF Normal 0-2 /HPF [facility] Comment on above: Order Comment: Speci men Type: BLOOD SPECIMEN Ordering Facility: [facility] Address: [address] [place] [address] Performed By: #### 5 7021-8 #### [facility] [id number] [address] [place] [address] [place] [facility] Specific gravity (U) [Rel density] 1.032 High 1.005-1.030 [facility] Comment on above: Order Comment: Speci men Type: BLOOD SPECIMEN Ordering Facility: [facility] Address: [address] [place] [address] Performed By: #### 5 7021-8 #### [facility] [id number] [address] [place] [address] [place] [facility] [place] Urobilinogen Ql (U) 0.2 EU/dL Normal 0.2-1.0 EU/dL [facility] Comment on above: Order Comment: Speci men Type: BLOOD SPECIMEN Ordering Facility: [facility] Address: [address] [place] [address] Performed By: #### 5 7021-8 #### [facility] [id number] [address] [place] [address] [place] WBC LM.HPF (Urine sed) [#/Area] 0-5 /HPF Normal 0-5 /HPF [facility] Comment on above: Order Comment: Speci men Type: BLOOD SPECIMEN Ordering Facility: [facility] Address: [address] [place] [address] Performed By: #### 5 7021-8 #### [facility] [id number] [address] [place] [address] [place] CNOVon 09-20-2024 [facility] VICTOR HUGO SHETH ([id number]) 1950 M Date Time Provider Department 09/20/24 3:20 PM JORDEN HARTMANN During your visit today, we recorded the following information about you: Pulse Respiration Blood pressure Weight 108/minute 18/minute 126/74 103.1 kg Jorden Hartmann MD 09/28/2024 8:35 AM Signed Chief Complaint Patient presents with: F/U 6 Month HPI Victor Hugo Sheth is a 74 year old male who presents here today for a routine follow up. Still smoking about 5 cigarettes per day. Pt is waiting for cardiac surgical clearance for carpal tunnel release through [facility]. Also advised he needs neck and upper back surgery, per Dr. Orlando. Has to receive clearance through Cardiology after completion of cardiac cath test on 09/26/24 as scheduled, this is a result of abnormal stress test. Dr. Jefferson recently started patient on Ditropan XL 10 mg once daily due to urinary frequency. Hx of prostate cancer. Has not started medication. Saw Dr. Jefferson yesterday. Has a CGM, but unable to figure out how to use it. Checks sugars once daily (fingerstick), with FBS ranging from 130-140's. Denies any lows. Notes neuropathy in b/l feet and hands. States he's had DM eye exam through [facility] in [place] this year. Will need to request records, unable to recall Provider seen. Victor Hugo is scheduled for a heart catheterization on September 26 and expresses concerns about potential delays in his upcoming surgeries for neck, lower back, and right wrist carpal tunnel due to cardiology clearance. He reports significant pain in his wrist, neck, and lower back, and experiences numbness in his legs, particularly in the back of his thighs, which affects his ability to walk. He notes that when he feels tingling in the back of his thighs, he needs to sit down immediately to avoid falling. 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 Victor Hugo is currently taking medication to control his bladder and reports urinating every 2-2.5 hours. He denies any recent fevers, lumps or swelling in the neck, wheezing, dyspnea, hemoptysis, chest pain, palpitations, leg swelling, nausea, emesis, diarrhea, dysuria, hematuria, or heartburn. He also denies any changes in heat or cold tolerance, symptoms of hypoglycemia, syncope, or seizures. He reports no more anxiety or depression than usual and is sleeping okay, though he notes that frequent urination makes it difficult. Victor Hugo has a history of prostate cancer and has undergone radiation therapy. His most recent PSA level was 0.52. He is a current smoker, smoking 5 cigarettes per day. He has lost 11 pounds recently and attributes this to eating lots of watermelon and cantaloupe. He is on Medicare and Medicaid. Past medical history, appointments, medications, allergies reviewed. Previous Medical History PAST MEDICAL HISTORY Diagnosis Date Advance directive discussed with patient 10/22/2021 Discussed 09/2021 Arthritis of both knees 12/12/2019 CAD (coronary artery disease), [place] coronary artery 05/14/[address] Khalil [facility] 05/14/[address] [facility] report from [facility], showed 85% stenosis in pLAD followed by 95% stenosis and 50-75% stenosis in mid LAD. Minimal disease in LCx and LCA. RCA with proximal and distal 25% stenosis. [facility] 05/17 s/p YESENIA x2 to LAD Plan: Dc home with follow-up Continue Plavix Carpal tunnel syndrome of right wrist 10/27/2013 EMG/NCT 10/27/13=mild right CTS Chronic systolic congestive heart failure (HCC) 03/13/2015 08/02/2018: Home BP Cuff Validated. Home BP: 118/71 Office BP: 116/72 Combined forms of age-related cataract of both eyes 06/15/2016 Combined forms of age-related cataract, bilateral 06/15/2016 Congestive heart failure (HCC) 03/13/2015 COPD with chronic bronchitis (HCC) 03/13/2015 Corneal scar, right eye 07/18/2020 DDD (degenerative disc disease), cervical DDD (degenerative disc disease), lumbar 12/07/2019 Depression with anxiety Diabetic eye exam (HCC) 05/15/2015 Last done 06/27/2018: no retinopathy. Dry eye syndrome of both eyes 07/18/2020 Elevated PSA 01/26/2019 Encounter for Medicare annual wellness exam 11/17/2017 Medicare Part B: 12/23/2016 last done: 09/10/2023 Does not want ELMO or colonoscopy Essential hypertension 09/19/2018 Gastroesophageal reflux disease without esophagitis 03/13/2015 History of compression fracture of spine 1971 high school football Iron deficiency anemia 09/26/2019 Iron deficiency anemia 09/26/2019 EGD and colonoscopy done 10/2019 Ischemic cardiomyopathy 05/25/2014 Leukocytosis 09/19/2018 Repeat 10/2018 ok Living will in place 10/22/2021 DPA: Jon (son) Medicare annual wellness visit, initial 11/17/2017 Medicare Part B: / (more content not included)... Normal [facility] CNOVon 09-19-2024 CNOV Office Visit (UROLMD ) VICTOR HUGO SHETH ([id number]) 1950 M Date Time Provider Department 09/19/24 3:30 PM AYAN JEFFERSON JR URODESIRE During your visit today, we recorded the following information about you: Weight Height 103.4 kg 1.702 m Ayan Jefferson Jr., MD 09/19/2024 3:23 PM Signed ESTABLISHED PATIENT OFFICE VISIT HPI Victor Hugo Sheth is a 74 year old male who presents Prostate Cancer Consultation Note Mr Victor Hugo Sheth was diagnosed with Clinical Stage(1c) Mabscott's score 7 (3+4) adenocarcinoma of the prostate with an associated PSA of 5 and an estimated prostatic volume of 30. He had 7 of 12 cores positive with disease identified in the 7 portion(s) of the prostate. The patient presents alone and I have discussed his apparent localized prostate cancer at length. Specifically we discussed the Eugene score, number and percent of cores involved with disease, the nathaly tables risk stratification criteria which are based upon the Mabscott score, PSA, and clinical T stage. Based upon the clinical features the patient falls into moderate risk category for 10 year biochemical disease free survival regardless of which therapeutic modality he chooses. He understands that there is a small, but real, chance of occult metastatic disease and the logic of when metastatic workup is appropriate. We discussed various options for management of his disease including watchful waiting, active surveillance, radiation modality and surgical extirpation. The options of watchful waiting or active surveillence were gone over and what these would entail, with selective delayed intervention, hormonal therapy in its various forms. The protocol for periodic PSA tests and repeating his transrectal prostate ultrasound, without or with prostate biopsy was covered. With respect to surgical intervention we compared and contrasted open, laparoscopic and robotic prostatectomy with or without bilateral pelvic lymphadenectomy. We compared these with respect to cancer control, urinary control, and erectile dysfunction. I explained that any patient undergoing treatment for prostate cancer may need additional therapy. The possibility of severe or total loss of urinary control, possibly needed surgery to implant an artificial urinary sphincter is possible after prostate cancer surgery. The possibility of loss of erections, and the possible treatment options was discussed. The other potential downside, including but not limited to urethral stricture, bladder neck contracture. I explained to him that robotic prostatectomy is a major surgical procedure and has possible major complications including, but not limited to bleeding requiring transfusion, rectal injury requiring a temporary colostomy, damage to abdominal structure, infection, myocardial infarction, stroke, deep vein thrombosis/ pulmonary embolism, or open conversion. We discussed the procedure related morbidity, hospitalization, and convalescence period. We have reviewed the recent data, which would show that at least one out of ten patients undergoing radical prostatectomy will have at least one complication whether minor or major, and this could be as high as 25% (one in four). We have discussed that with surgical intervention. We also discussed radiation therapy; external beam, and out-patient brachytherapy as well as the attendant procedure related morbidity as it relates to the low but known risk of founder ceo & president urinary frequency, urgency, urgency with bowel movements and risk of urethral radiation injury. We also discussed time commitment for the external beam therapy being once a day, five days a week for 5-7 weeks during which most people can continue normal daily activities. I described the likelihood of flare up of hemorrhoids, and mild decrease in physical stamina during the later portion of the treatments. We discussed the time frame for PSA response that would indicate efficacy of the radiation therapy. A referral to radiation oncology was offered. Additionally, we discussed cryosurgical ablation of the prostate (with without nerve sparing). Specifically, we discussed the procedure related morbidity, risk of rectal injury, urinary incontinence, post cryo urinary frequency and urgency, and risk of impotence. We also discussed the outpatient nature of the procedure, minimal need for pain medication and the need for a urinary catheter for 2-weeks following the procedure and the time frame of PSA response that would reflect the efficacy of the cryosurgical procedure and the follow up that would be involved. Finally, with respect to the cryosurgical procedure we discussed that to date we do not have group home (10-year) outcomes data, however, the published data do compare favorably to other treatment modalities and there have been no data that i (more content not included)... Normal [facility] Basic metabolic 2000 panelon 09-15-2024 Anion gap [Moles/Vol] 15 mmol/L Normal 8-15 [facility] Comment on above: Order Comment: Speci men Type: BLOOD SPECIMEN Ordering Facility: [facility] Address: [address] [place] [address] Performed By: #### A LKISOP #### [facility] CLIA [id number] [address] [place] [address] [place] Calcium [Mass/Vol] 9.4 mg/dL Normal 8.5-10.2 [facility] Comment on above: Order Comment: Speci men Type: BLOOD SPECIMEN Ordering Facility: [facility] Address: [address] [place] [address] Performed By: #### A LKISOP #### [facility] CLIA [id number] [address] [place] [address] [place] Chloride [Moles/Vol] 98 mmol/L Normal 98-107 [facility] Comment on above: Order Comment: Speci men Type: BLOOD SPECIMEN Ordering Facility: [facility] Address: [address] [place] [address] Performed By: #### A LKISOP #### [facility] CLIA [id number] [address] [place] [address] [place] CO2 [Moles/Vol] 21 mmol/L Low 22-30 [facility] Comment on above: Order Comment: Speccee men Type: BLOOD SPECIMEN Ordering Facility: [facility] Address: [address] [place] [address] Performed By: #### A LKISOP #### [facility] CLIA [id number] [address] [place] [address] [place] Creatinine [Mass/Vol] 1.03 mg/dL Normal 0.73-1.22 [facility] Comment on above: Order Comment: Speci men Type: BLOOD SPECIMEN Ordering Facility: [facility] Address: [address] [place] [address] Performed By: #### A LKISOP #### [facility] CLIA [id number] [address] [place] [address] [place] eGFRcr SerPlBld CKD-EPI 2020 77 mL/min/1.73m??? Normal >=60 [facility] Comment on above: Order Comment: Cliffordi men Type: BLOOD SPECIMEN Ordering Facility: [facility] Address: [address] [place] [address] Result Comment: Apple mated Glomerular Filtration Rate (eGFR) is calculated using the 2020 CKD-EPI creatinine equation. This equation utilizes serum creatinine, sex, and age as parameters. The creatinine assay has traceable calibration to isotope dilution-mass spectrometry. Refer to KDIGO guidelines for clinical interpretation. In patients with unstable renal function, e.g. those with acute kidney injury, the eGFR may not accurately reflect actual GFR. Performed By: #### A LKISOP #### [facility] CLIA [id number] [address] [place] [address] [place] Glucose [Mass/Vol] 230 mg/dL High 74-99 [facility] Comment on above: Order Comment: Speci men Type: BLOOD SPECIMEN Ordering Facility: [facility] Address: [address] [place] [address] Result Comment: The [place] Diabetes Association (ADA) provides guidance for cutoff values for fasting glucose and random glucose. The ADA defines fasting as no caloric intake for at least 8 hours. Fasting plasma glucose results between 100 to 125 mg/dL indicate increased risk for diabetes (prediabetes). Fasting plasma glucose results greater than or equal to 126 mg/dL meet the criteria for diagnosis of diabetes. In the absence of unequivocal hyperglycemia, results should be confirmed by repeat testing. In a patient with classic symptoms of hyperglycemia or hyperglycemic crisis, random plasma glucose results greater than or equal to 200 mg/dL meet the criteria for diagnosis of diabetes. Reference: Standards of Medical Care in Diabetes 2016, [place] Diabetes Association. Diabetes Care. 2016.39(Suppl 1). Performed By: #### A LKISOP #### [facility] CLIA [id number] [address] [place] [address] [place] Potassium [Moles/Vol] 4.3 mmol/L Normal 3.7-5.1 [facility] Comment on above: Order Comment: Speci men Type: BLOOD SPECIMEN Ordering Facility: [facility] Address: [address] [place] [address] Performed By: #### A LKISOP #### [facility] CLIA [id number] [address] [place] [address] [place] Sodium [Moles/Vol] 134 mmol/L Low 136-144 [facility] Comment on above: Order Comment: Brian curry Type: BLOOD SPECIMEN Ordering Facility: [facility] Address: [address] [place] [address] Performed By: #### A LKISOP #### [facility] CLIA [id number] [address] [place] [address] [place] Urea nitrogen [Mass/Vol] 31 mg/dL High 9-24 [facility] Comment on above: Order Comment: Cliffordi antoinette Type: BLOOD SPECIMEN Ordering Facility: [facility] Address: [address] [place] [address] Performed By: #### A LKISOP #### [facility] CLIA [id number] [address] [place] [address] [place] CBC W Auto Differential pane l (Bld)on 09-15-2024 Basophils (Bld) [#/Vol] 0.03 10*3/uL Normal <0.11 [facility] Comment on above: Order Comment: Speci men Type: BLOOD SPECIMEN Ordering Facility: [facility] Address: [address] [place] [address] Performed By: #### 5 7021-8 #### [facility] CLIA [id number] [address] [place] [address] [place] Basophils/100 WBC (Bld) 0.4 % Normal [facility] Comment on above: Order Comment: Speci men Type: BLOOD SPECIMEN Ordering Facility: [facility] Address: [address] [place] [address] Performed By: #### 5 7021-8 #### [facility] CLIA [id number] [address] [place] [address] [place] Differential cell count method Nom (Bld) Auto Normal [facility] Comment on above: Order Comment: Speci men Type: BLOOD SPECIMEN Ordering Facility: [facility] Address: [address] [place] [address] Performed By: #### 5 7021-8 #### [facility] CLIA [id number] [address] [place] [address] [place] Eosinophils (Bld) [#/Vol] 0.27 10*3/uL Normal <0.46 [facility] Comment on above: Order Comment: Speci men Type: BLOOD SPECIMEN Ordering Facility: [facility] Address: [address] [place] [address] Performed By: #### 5 7021-8 #### [facility] CLIA [id number] [address] [place] [address] [place] Eosinophils/100 WBC (Bld) 3.5 % Normal [facility] Comment on above: Order Comment: Speci men Type: BLOOD SPECIMEN Ordering Facility: [facility] Address: [address] [place] [address] Performed By: #### 5 7021-8 #### [facility] CLIA [id number] [address] [place] [address] [place] Erythrocyte distribution width (RBC) [Ratio] 14.6 % Normal 11.5-15.0 [facility] Comment on above: Order Comment: Speci men Type: BLOOD SPECIMEN Ordering Facility: [facility] Address: [address] [place], [place] [address] Performed By: #### 5 7021-8 #### [facility] CLIA [id number] [address] [place] [address] [place] Hematocrit (Bld) [Volume fraction] 45.6 % Normal 39.0-51.0 [facility] Comment on above: Order Comment: Speci men Type: BLOOD SPECIMEN Ordering Facility: [facility] Address: [address] [place], [place] [address] Performed By: #### 5 7021-8 #### [facility] CLIA [id number] [address] [place] [address] [place] Hemoglobin (Bld) [Mass/Vol] 14.8 g/dL Normal 13.0-17.0 [facility] Comment on above: Order Comment: Speci men Type: BLOOD SPECIMEN Ordering Facility: [facility] Address: [address] [place] [address] Performed By: #### 5 7021-8 #### [facility] CLIA [id number] [address] [place] [address] [place] Immature granulocytes (Bld) [#/Vol] 10*3/uL Normal <0.10 [facility] Comment on above: Order Comment: Speci men Type: BLOOD SPECIMEN Ordering Facility: [facility] Address: [address] [place] [address] Performed By: #### 5 7021-8 #### [id number] [address] [place] [address] [place] Immature granulocytes/100 WBC (Bld) 0.3 % Normal [facility] Comment on above: Order Comment: Speci men Type: BLOOD SPECIMEN Ordering Facility: [facility] Address: [address] [place] [address] Performed By: #### 5 7021-8 #### [facility] CLIA [id number] [address] [place] [address] [place] Lymphocytes (Bld) [#/Vol] 0.84 10*3/uL Low 1.00-4.00 [facility] Comment on above: Order Comment: Speci men Type: BLOOD SPECIMEN Ordering Facility: [facility] Address: [address] [place] [address] Performed By: #### 5 7021-8 #### [facility] CLIA [id number] [address] [place] [address] [place] Lymphocytes/100 WBC (Bld) 10.8 % Normal [facility] Comment on above: Order Comment: Speci men Type: BLOOD SPECIMEN Ordering Facility: [facility] Address: [address] [place] [address] Performed By: #### 5 7021-8 #### [facility] CLIA [id number] [address] [place] [address] [place] MCH (RBC) [Entitic mass] 28.8 pg Normal 26.0-34.0 [facility] Comment on above: Order Comment: Speci men Type: BLOOD SPECIMEN Ordering Facility: [facility] Address: [address] [place] [address] Performed By: #### 5 7021-8 #### [facility] CLIA [id number] [address] [place] [address] [place] MCHC (RBC) [Mass/Vol] 32.5 g/dL Normal 30.5-36.0 [facility] Comment on above: Order Comment: Speci men Type: BLOOD SPECIMEN Ordering Facility: [facility] Address: [address] [place] [address] Performed By: #### 5 7021-8 #### [facility] CLIA [id number] [address] [place] [address] [place] MCV (RBC) [Entitic vol] 88.9 fL Normal 80.0-100.0 [facility] Comment on above: Order Comment: Speci men Type: BLOOD SPECIMEN Ordering Facility: [facility] Address: [address] [place] [address] Performed By: #### 5 7021-8 #### [facility] CLIA [id number] [address] [place] [address] [place] Monocytes (Bld) [#/Vol] 0.54 10*3/uL Normal <0.87 [facility] Comment on above: Order Comment: Speci men Type: BLOOD SPECIMEN Ordering Facility: [facility] Address: [address] [place] [address] Performed By: #### 5 7021-8 #### [facility] CLIA [id number] [address] [place] [address] [place] Monocytes/100 WBC (Bld) 6.9 % Normal [facility] Comment on above: Order Comment: Speci men Type: BLOOD SPECIMEN Ordering Facility: [facility] Address: [address] [place] [address] Performed By: #### 5 7021-8 #### [facility] CLIA [id number] [address] [place] [address] [place] Neutrophils (Bld) [#/Vol] 6.07 10*3/uL Normal 1.45-7.50 [facility] Comment on above: Order Comment: Speci men Type: BLOOD SPECIMEN Ordering Facility: [facility] Address: [address] [place] [address] Performed By: #### 5 7021-8 #### [facility] CLIA [id number] [address] [place] [address] [place] Neutrophils/100 WBC (Bld) 78.1 % Normal [facility] Comment on above: Order Comment: Speci men Type: BLOOD SPECIMEN Ordering Facility: [facility] Address: [address] [place] [address] Performed By: #### 5 7021-8 #### [facility] CLIA [id number] [address] [place] [address] [place] Nucleated RBC (Bld) [#/Vol] 10*3/uL Normal <0.01 [facility] Comment on above: Order Comment: Speci men Type: BLOOD SPECIMEN Ordering Facility: [facility] Address: [address] [place] [address] Performed By: #### 5 7021-8 #### [facility] CLIA [id number] [address] [place] [address] [place] Nucleated RBC/100 WBC (Bld) [Ratio] 0.0 /100 WBC Normal [facility] Comment on above: Order Comment: Speci men Type: BLOOD SPECIMEN Ordering Facility: [facility] Address: [address] [place] [address] Performed By: #### 5 7021-8 #### [facility] CLIA [id number] [address] [place] [address] [place] Platelet mean volume (Bld) [Entitic vol] 8.8 fL Low 9.0-12.7 [facility] Comment on above: Order Comment: Speci men Type: BLOOD SPECIMEN Ordering Facility: [facility] Address: [address] [place] [address] Performed By: #### 5 7021-8 #### [facility] CLIA [id number] [address] [place] [address] [place] Platelets (Bld) [#/Vol] 341 10*3/uL Normal 150-400 [facility] Comment on above: Order Comment: Speci men Type: BLOOD SPECIMEN Ordering Facility: [facility] Address: [address] [place] [address] Performed By: #### 5 7021-8 #### [facility] CLIA [id number] [address] [place] [address] [place] RBC (Bld) [#/Vol] 5.13 10*6/uL Normal 4.20-6.00 [facility] Comment on above: Order Comment: Speci men Type: BLOOD SPECIMEN Ordering Facility: [facility] Address: [address] [place] [address] Performed By: #### 5 7021-8 #### [facility] CLIA [id number] [address] [place] [address] [place] WBC (Bld) [#/Vol] 7.77 10*3/uL Normal 3.70-11.00 [facility] Comment on above: Order Comment: Speci men Type: BLOOD SPECIMEN Ordering Facility: [facility] Address: [address] [place] [address] Performed By: #### 5 7021-8 #### [facility] CLIA [id number] [address] [place] [address] [place] Iron and Iron binding capaci ty panelon 09-15-2024 Iron [Mass/Vol] 89 ug/dL Normal 41-186 [facility] Comment on above: Order Comment: Speci men Type: BLOOD SPECIMEN Ordering Facility: [facility] Address: [address] [place] [address] Performed By: #### A LKISOP #### [facility] CLIA [id number] [address] [place] [address] [place] Iron binding capacity [Mass/Vol] 411 ug/dL High 232-386 [facility] Comment on above: Order Comment: Speci men Type: BLOOD SPECIMEN Ordering Facility: [facility] Address: [address] [place], [place] [address] Performed By: #### A LKISOP #### [facility] CLIA [id number] [address] [place] [address] [place] Iron/TIBC [Molar ratio] 21.7 % Normal 15.0-57.0 [facility] Comment on above: Order Comment: Speci men Type: BLOOD SPECIMEN Ordering Facility: [facility] Address: [address] [place] [address] Performed By: #### A LKISOP #### [facility] CLIA [id number] [address] [place] [address] [place] Magnesium SerPl-mCncon 09-15 Magnesium [Mass/Vol] 2.0 mg/dL Normal 1.7-2.3 [facility] Comment on above: Order Comment: Speci men Type: BLOOD SPECIMEN Ordering Facility: [facility] Address: [address] [place] [address] Performed By: #### A LKISOP #### [facility] CLIA [id number] [address] [place] [address] [place] PSA SerPl-mCncon 09-15-2024 Prostate specific Ag [Mass/Vol] 0.52 ng/mL Normal <2.60 [facility] Comment on above: Order Comment: Speci men Type: BLOOD SPECIMENOrdering Facility: [facility] Address: [address] [place] [address] Result Comment: Tota l PSA test methodology used is the Electrochemiluminescence Immunoassay by [employer]. Total PSA values by differing methodologies cannot be interchanged. Performed By: #### 2 857-1 ####[facility] [id number] [place] [address] [place] Orthopedic Visit Reporton Orthopedic Visit Report [facility] [address] [place], [place] [id number] OFFICE VISIT Date of Service: 09/14/24 MR#: [id number] Acct: [id number] Name: VICTOR HUGO SHETH Rep #: [id number] : 1950 Provider: Dr. Jorge Orlando MD Age/Sex: 74/M Location: [facility] [place] Status: Signed Intake Vital Signs 08/11/24 14:44 Height 5 ft 7 in BP 130/74 H Blood Pressure Location Lt brachial Position Sitting Respiration 16 Pulse 101 H Temp 97.8 F Temp Source Oral Pulse Oximetry (%) 94 Oxygen Delivery Method room air Intake Visit Reasons: LUMBAR SPINE Accompanied by: Self Allergies No Known Allergies Allergy (Verified 09/14/24 15:28) Medications ???Medication ???Instructions ???Recorded ???Confirmed ???Type albuterol sulfate 2.5 mg/3 mL 2.5 mg inhalation Q4H PRN PRN Sob 05/10/14 09/14/24 History (0.083 %) solution for nebulization /Or Wheezing albuterol sulfate 90 mcg/actuation 2 puff inhalation Q4H PRN PRN So b 05/10/14 09/14/24 History aerosol inhaler (Ventolin HFA) /Or Wheezing metformin 500 mg tablet,extended 1,000 mg PO BID 05/10/14 09/14/24 History release 24 hr atorvastatin 80 mg tablet 80 mg PO QHS 05/26/24 09/14/24 His tory clopidogrel 75 mg tablet 75 mg PO QDAY 05/26/24 09/14/24 Hi story empagliflozin 25 mg tablet 25 mg PO QAM 05/26/24 09/14/24 His tory (Jardiance) glimepiride 4 mg tablet 4 mg PO BID 05/26/24 09/14/24 Hist ory lisinopril 10 mg tablet 10 mg PO QDAY 05/26/24 09/14/24 Hi story metoprolol succinate 25 mg 25 mg PO QDAY 05/26/24 09/14/24 Hi story tablet,extended release 24 hr sitagliptin phosphate 100 mg 100 mg PO QDAY 05/26/24 09/14/24 H istory tablet (Januvia) Have you fallen in the past year?: Yes [facility] Medical History (Updated 09/15/24 @ 09:[address] Jorge Orlando MD) Cervical myelopathy Kyphosis Cervical radiculopathy Pain Family history of prostate problems Heart failure High blood pressure High cholesterol Neuropathy Cancer Carpal tunnel syndrome Family History Other Cancer Diabetes Heart disease Hypertension Social History Smoking Status: Light Smoker (<10/day) Tobacco: How many years used: 50 HPI LUMBAR SPINE Details: This documentation accurately reflects the service provided and the decisions made by me, Dr. Jorge Orlando MD 09/14/24 [id number]. Part of today???s visit was documented by Vanessa BURCIAGA and Radha Medina RN, acting as scribe. VICTOR HUGO SHETH is a 74 year old M here today for MRI review of the lumbar spine. He complains of low back pain that extends into his legs. He denies any changes to his symptoms. Over the last 18 months his balance has started to change. He complains of neck pain. He complains of pain going into his bilateral arms but the left is worse. He reports numbness in the BUE. He will be having carpal tunnel release surgery in the coming weeks. He is also going to be having a cardiac catheterization in the coming weeks. He takes Plavix daily. He also has prostate cancer and just finished radiation therapy. He does have diabetes. The patient is a 74-year-old male presenting with neck and lower back pain, alongside management of chronic conditions. 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 The pain radiates bilaterally down the arms, with associated numbness in both hands, impacting dexterity and causing difficulty with tasks such as buttoning shirts. The patient also experiences lower back issues, specifically lumbar spinal stenosis, which causes pain radiating to the back of the upper thigh and knee, leading to numbness and balance issues. The condition has progressively worsened over the past 18 months, affecting the patient's ability to walk long distances without needing to sit down to prevent falls. The patient has a history of coronary artery disease with two stents placed approximately eight years ago and is currently on Plavix. A heart catheterization is planned, but scheduling conflicts with other medical appointments have delayed it. Prostate cancer is being managed with radiation therapy, with an upcoming evaluation to assess treatment efficacy. The patient reports a balance disorder that has been present for approximately 18 months, coinciding with the onset of lower back symptoms. - Musculoskeletal: Reports neck pain radiating to both arms, difficulty with dexterity, and lower back pain radiating to the thigh and knee. - Neurological: Reports numbness in both hands, balance issues, and difficulty with fine motor tasks. - Cardiovascular: Denies chest pain or shortness of johnny (more content not included)... Normal [facility] 09-13-2024 [facility] Telephone (FAMWS) VICTOR HUGO SHETH ([id number]) 1950 Date Time Provider Department 09/13/24 JORDEN HARTMANN [facility] During your visit today, we recorded the following information about you: Amira White MA 09/13/2024 1:52 PM Signed Type of form: Medical Clearance for carpal tunnel release from [facility]. Form received via fax When form is completed, Fax form to [phone] Form has been forwarded to Physician Desk: Dr. Hartmann. Pt currently scheduled for 6 mo f/u on 09/20/24. Per [facility] pt is needing cardiac clearance prior to surgery. Scheduled for a Stress Test/L Heart Cath on 09/19/24. ANA Jorge Jeffrey A, MD 09/28/2024 1:14 PM Signed Forms ready to be faxed back. Sameer Aldana MA 09/28/2024 3:55 PM Signed Faxed. Sameer Aldana MA Allergies As of Date: 09/13/2024 Noted Allergy Reaction RYBELSUS (SEMAGLUTIDE) 04/16/2021 6 - Diarrhea Date Reviewed: 09/05/2024 Reviewed by: Alla Mascorro, GARRETT - Fully Assessed Reason for Visit: Forms [913] Cmt: Medical Clearance Prescriptions as of 09/28/2024 - ezetimibe (ZETIA) 10 mg tablet Take 1 tablet by mouth once daily. - oxybutynin ER (DITROPAN XL) 10 mg 24 hr tablet Take 1 tablet by mouth once daily. - metFORMIN (GLUCOPHAGE) 1,000 mg tablet Take 1 tablet by mouth two times a day with meals. - metoprolol succinate ER (TOPROL XL) 50 mg 24 hr tablet Take 1 tablet by mouth once daily. - atorvastatin (LIPITOR) 80 mg tablet Take 1 tablet by mouth daily at bedtime. - glimepiride (AMARYL) 4 mg tablet Take 1 tablet by mouth two times a day with meals. - clopidogrel (PLAVIX) 75 mg tablet Take 1 tablet by mouth once daily. - empagliflozin (JARDIANCE) 25 mg tablet Take 1 tablet by mouth daily with breakfast. - lisinopril (ZESTRIL) 10 mg tablet Take 1 tablet by mouth once daily. - SITagliptin phosphate (JANUVIA) 100 mg tablet Take 1 tablet by mouth once daily. - blood sugar diagnostic (BLOOD GLUCOSE TEST) test strip Test blood sugar(s) 2 times daily. Dx: Other DM Code E11.42 Insulin: No - albuterol HFA (PROVENTIL HFA, VENTOLIN HFA) 90 mcg/actuation inhaler Inhale 2 Puffs as instructed every 4 hours as needed. - Lancets lancets Test blood sugar(s) 2 times daily. Dx: Other DM Code E11.42 Insulin: No - Blood-Glucose Meter Test Blood Sugars 2 times daily Dx E11.42 Insulin: No - flash glucose sensor (FREESTYLE ADRIAN 10 DAY SENSOR) kit 1 Each one time a week. Check blood sugar twice a day - flash glucose scanning reader (FREESTYLE ADRIAN 10 DAY READER) 1 Device twice daily. Check blood sugar twice a day Problem List As Of Date 09/13/2024 Noted Resolved Mixed hyperlipidemia [E78.2] 09/13/2012 Depression with anxiety [F41.8] Neck pain [M54.2] 10/04/2013 Carpal tunnel syndrome of right wrist [G56.01] 10/27/2013 DDD (degenerative disc disease), cervical [M50.* CAD (coronary artery disease), [place] coronary *05/14/2014 Ischemic cardiomyopathy [I25.5] 05/25/2014 Presence of drug coated stent in LAD coronary a*05/25/2014 Combined senile cataract [H25.819] 10/12/2014 06/10/2017 Vitreous floaters of both eyes [H43.393] 10/12/2014 Type 2 diabetes mellitus without retinopathy (H*10/12/2014 Tachycardia [R00.0] 10/30/2014 Chronic systolic congestive heart failure (HCC)*03/13/2015 Gastroesophageal reflux disease without esophag*03/13/2015 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] 03/13/2015 Smoker [F17.200] 03/13/2015 Diabetic eye exam (HCC) [Z01.00, E11.9] 05/15/2015 Uncontrolled type 2 diabetes mellitus with hype*07/18/2015 Type 2 diabetes mellitus with diabetic neuropat*11/20/2015 Combined forms of age-related cataract, bilater*06/15/2016 Screening for colon cancer [Z12.11] 12/29/2016 Obesity, Class II, BMI 35-39.9 [E66.812] 05/13/2017 Prostate disorder [N42.9] 11/03/2017 Encounter for Medicare annual wellness exam [Z0*11/17/2017 Combined forms of age-related cataract of both *06/15/2016 Essential hypertension [I10] 09/19/2018 Elevated PSA [R97.20] 01/26/2019 Medication management [Z79.899] 07/24/2019 Iron deficiency anemia [D50.9] 09/26/2019 DDD (degenerative disc disease), lumbar [M51.36*12/07/2019 Arthritis of both knees [M17.0] 12/12/2019 Corneal scar, 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] 07/18/2020 Dry eye syndrome of both eyes [H04.123] 07/18/[address] [Z78.9] 10/22/2021 Advance directive discussed with patient [Z71.8*10/22/2021 Prostate cancer (HCC) [C61] 03/03/2024 Congestive heart failure (HCC) [I50.9] 07/28/2024 Shortness of breath [R06.02] 07/28/2024 Encounter Status:Closed by SAMEER ALDANA on 8/7/25 Normal [facility] Telephone (AKCAT) VICTOR HUGO SHETH ([id number]) 1950 Date Time Provider Department 09/13/24 MONICO AMARO During your visit today, we recorded the following information about you: Piodeborah Gracia Berkley 09/13/2024 11:28 AM Signed Scheduled LHC on 09/19/[address] Clark . Please instruct patient on which medications to stop and/or keep taking. Patient will need ride home and someone overnight. Someone from phlebotomy lab assistant will call the patient the day before to go over instructions. Hood Paez RN 09/14/2024 2:33 PM Signed Called pt to review cath instructions. Pt unable to proceed with heart cath on 09/19/2024 due to another scheduled appointment that day. Pt is requesting an new heart cath day. Pio Gracia Berkley 09/15/2024 9:21 AM Signed Rescheduled LHC on 09/26/[address] Clark . Please instruct patient on which medications to stop and/or keep taking. Patient will need ride home and someone overnight. Someone from phlebotomy lab assistant will call the patient the day before to go over instructions. Chey Loomis, GARRETT 09/20/2024 10:51 AM Signed Patient asking for clarification if he needs to hold his blood thinner for the heart cath on 09/26 He is taking plavix Please call at [phone] Mtaeo Dillon RN 09/20/2024 11:58 AM Signed Called pt no answer left VM to call us back. Allergies As of Date: 09/13/2024 Noted Allergy Reaction RYBELSUS (SEMAGLUTIDE) 04/16/2021 6 - Diarrhea Date Reviewed: 09/05/2024 Reviewed by: Alla Mascorro, GARRETT - Fully Assessed Prescriptions as of 09/20/2024 - oxybutynin ER (DITROPAN XL) 10 mg 24 hr tablet Take 1 tablet by mouth once daily. - metFORMIN (GLUCOPHAGE) 1,000 mg tablet Take 1 tablet by mouth two times a day with meals. - metoprolol succinate ER (TOPROL XL) 50 mg 24 hr tablet Take 1 tablet by mouth once daily. - atorvastatin (LIPITOR) 80 mg tablet Take 1 tablet by mouth daily at bedtime. - glimepiride (AMARYL) 4 mg tablet Take 1 tablet by mouth two times a day with meals. - clopidogrel (PLAVIX) 75 mg tablet Take 1 tablet by mouth once daily. - empagliflozin (JARDIANCE) 25 mg tablet Take 1 tablet by mouth daily with breakfast. - lisinopril (ZESTRIL) 10 mg tablet Take 1 tablet by mouth once daily. - SITagliptin phosphate (JANUVIA) 100 mg tablet Take 1 tablet by mouth once daily. - blood sugar diagnostic (BLOOD GLUCOSE TEST) test strip Test blood sugar(s) 2 times daily. Dx: Other DM Code E11.42 Insulin: No - albuterol HFA (PROVENTIL HFA, VENTOLIN HFA) 90 mcg/actuation inhaler Inhale 2 Puffs as instructed every 4 hours as needed. - Lancets lancets Test blood sugar(s) 2 times daily. Dx: Other DM Code E11.42 Insulin: No - Blood-Glucose Meter Test Blood Sugars 2 times daily Dx E11.42 Insulin: No - flash glucose sensor (FREESTYLE ADRIAN 10 DAY SENSOR) kit 1 Each one time a week. Check blood sugar twice a day - flash glucose scanning reader (FREESTYLE ADRIAN 10 DAY READER) 1 Device twice daily. Check blood sugar twice a day Problem List As Of Date 09/13/2024 Noted Resolved Mixed hyperlipidemia [E78.2] 09/13/2012 Depression with anxiety [F41.8] Neck pain [M54.2] 10/04/2013 Carpal tunnel syndrome of right wrist [G56.01] 10/27/2013 DDD (degenerative disc disease), cervical [M50.* CAD (coronary artery disease), [place] coronary *05/14/2014 Ischemic cardiomyopathy [I25.5] 05/25/2014 Presence of drug coated stent in LAD coronary a*05/25/2014 Combined senile cataract [H25.819] 10/12/2014 06/10/2017 Vitreous floaters of both eyes [H43.393] 10/12/2014 Type 2 diabetes mellitus without retinopathy (H*10/12/2014 Tachycardia [R00.0] 10/30/2014 Chronic systolic congestive heart failure (HCC)*03/13/2015 Gastroesophageal reflux disease without esophag*03/13/2015 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] 03/13/2015 Smoker [F17.200] 03/13/2015 Diabetic eye exam (HCC) [Z01.00, E11.9] 05/15/2015 Uncontrolled type 2 diabetes mellitus with hype*07/18/2015 Type 2 diabetes mellitus with diabetic neuropat*11/20/2015 Combined forms of age-related cataract, bilater*06/15/2016 Screening for colon cancer [Z12.11] 12/29/2016 Obesity, Class II, BMI 35-39.9 [E66.812] 05/13/2017 Prostate disorder [N42.9] 11/03/2017 Encounter for Medicare annual wellness exam [Z0*11/17/2017 Combined forms of age-related cataract of both *06/15/2016 Essential hypertension [I10] 09/19/2018 Elevated PSA [R97.20] 01/26/2019 Medication management [Z79.899] 07/24/2019 Iron deficiency anemia [D50.9] 09/26/2019 DDD (degenerative disc disease), lumbar [M51.36*12/07/2019 Arthritis of both knees [M17.0] 12/12/2019 Corneal scar, 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 Normal [facility] 09-12-2024 [facility] Telephone ([facility]) VICTOR HUGO SHETH ([id number]) 1950 M Date Time Provider Department 09/12/24 MONICO AMARO During your visit today, we recorded the following information about you: Hood Paez RN 09/12/2024 2:07 PM Signed Forms from [facility] received via fax. Forms placed in Dr. Daly alan for review. Monico Amaro MD 09/13/2024 6:44 AM Addendum Please inform the surgical office- patient needs to have cardiac cath with possible PCI if warranted prior to providing perioperative recommendations. Hood Paez RN 09/13/2024 9:08 AM Signed Forms faxed back to [facility] with providers message below. Confirmation received. Forms placed in PSS basket Allergies As of Date: 09/12/2024 Noted Allergy Reaction RYBELSUS (SEMAGLUTIDE) 04/16/2021 6 - Diarrhea Date Reviewed: 09/05/2024 Reviewed by: Alla Mascorro RN - Fully Assessed Reason for Visit: Forms [913] Cmt: Cardiac Clearance Prescriptions as of 09/13/2024 - metFORMIN (GLUCOPHAGE) 1,000 mg tablet Take 1 tablet by mouth two times a day with meals. - metoprolol succinate ER (TOPROL XL) 50 mg 24 hr tablet Take 1 tablet by mouth once daily. - atorvastatin (LIPITOR) 80 mg tablet Take 1 tablet by mouth daily at bedtime. - glimepiride (AMARYL) 4 mg tablet Take 1 tablet by mouth two times a day with meals. - clopidogrel (PLAVIX) 75 mg tablet Take 1 tablet by mouth once daily. - empagliflozin (JARDIANCE) 25 mg tablet Take 1 tablet by mouth daily with breakfast. - lisinopril (ZESTRIL) 10 mg tablet Take 1 tablet by mouth once daily. - SITagliptin phosphate (JANUVIA) 100 mg tablet Take 1 tablet by mouth once daily. - blood sugar diagnostic (BLOOD GLUCOSE TEST) test strip Test blood sugar(s) 2 times daily. Dx: Other DM Code E11.42 Insulin: No - albuterol HFA (PROVENTIL HFA, VENTOLIN HFA) 90 mcg/actuation inhaler Inhale 2 Puffs as instructed every 4 hours as needed. - Lancets lancets Test blood sugar(s) 2 times daily. Dx: Other DM Code E11.42 Insulin: No - Blood-Glucose Meter Test Blood Sugars 2 times daily Dx E11.42 Insulin: No - flash glucose sensor (FREESTYLE ADRIAN 10 DAY SENSOR) kit 1 Each one time a week. Check blood sugar twice a day - flash glucose scanning reader (FREESTYLE ADRIAN 10 DAY READER) 1 Device twice daily. Check blood sugar twice a day Problem List As Of Date 09/12/2024 Noted Resolved Mixed hyperlipidemia [E78.2] 09/13/2012 Depression with anxiety [F41.8] Neck pain [M54.2] 10/04/2013 Carpal tunnel syndrome of right wrist [G56.01] 10/27/2013 DDD (degenerative disc disease), cervical [M50.* CAD (coronary artery disease), [place] coronary *05/14/2014 Ischemic cardiomyopathy [I25.5] 05/25/2014 Presence of drug coated stent in LAD coronary a*05/25/2014 Combined senile cataract [H25.819] 10/12/2014 06/10/2017 Vitreous floaters of both eyes [H43.393] 10/12/2014 Type 2 diabetes mellitus without retinopathy (H*10/12/2014 Tachycardia [R00.0] 10/30/2014 Chronic systolic congestive heart failure (HCC)*03/13/2015 Gastroesophageal reflux disease without esophag*03/13/2015 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] 03/13/2015 Smoker [F17.200] 03/13/2015 Diabetic eye exam (HCC) [Z01.00, E11.9] 05/15/2015 Uncontrolled type 2 diabetes mellitus with hype*07/18/2015 Type 2 diabetes mellitus with diabetic neuropat*11/20/2015 Combined forms of age-related cataract, bilater*06/15/2016 Screening for colon cancer [Z12.11] 12/29/2016 Obesity, Class II, BMI 35-39.9 [E66.812] 05/13/2017 Prostate disorder [N42.9] 11/03/2017 Encounter for Medicare annual wellness exam [Z0*11/17/2017 Combined forms of age-related cataract of both *06/15/2016 Essential hypertension [I10] 09/19/2018 Elevated PSA [R97.20] 01/26/2019 Medication management [Z79.899] 07/24/2019 Iron deficiency anemia [D50.9] 09/26/2019 DDD (degenerative disc disease), lumbar [M51.36*12/07/2019 Arthritis of both knees [M17.0] 12/12/2019 Corneal scar, 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 Left ventricular systolic function is severely decreased. EF = 22 5% (2D 4-ch.) Definity contrast used for endocardial border detection. Left ventricular diastolic function was not evaluated due to E/A fusion. - The right ventricle is normal in size. Right ventricular systolic function is normal. - The left atrial cavity is mildly dilated. - The visualized aorta is borderline dilated with a maximal dimension of 3.9 cm. - Exam was compared with the prior echocardiographic exam performed on 09/23/2023. LV function has decreased. Increase in MR on today's study. * * * Final * * * [facility] Echocardiography Report: Transthoracic Echo [facility] Date of service: 09/05/2024 12:59:40 PM Ordering physician: MONICO AMARO Exam indication: Cardiomyopathy Technologist: Coby Beltran [facility] Interpreting physician: Nayla Raines MD PATIENT: Name: MR. VICTOR HUGO SHETH : 1950 Age: 74 years Gender: M Primary rhythm: sinus. Height: 170.18 cm BSA: 2.21 m Weight: 102.97 kg BMI: 35.6 kg/m Heart rate 102 bpm Color Doppler was utilized to interrogate the cardiac valves assessed and spectral Doppler was utilized to determine the flow velocities and pressure gradients reported in this exam. MEASUREMENTS: Value Indexed Normal Max aortic dimension 3.9 cm Ao < 3.8 Left atrial volume 79 ml (Garcia's) 37 ml/m Raisa <= 34 LV ID (diastole) 6.6 cm (2D) 2.99 cm/m LV ID (systole) 6.1 cm (2D) 2.78 cm/m IVS, leaflet tips 1.0 cm (2D) Posterior wall thickness 0.9 cm (2D) Left ventricular mass 266 g (2D) 120 g/m LV stroke volume 57 ml (2D 4-ch.) LV end diastolic volume 261 ml (2D 4-ch.) 118.3 ml/m 34<=EDVi<75 LV end systolic volume 204 ml (2D 4-ch.) 92.5 ml/m Ejection Fraction 22 % (2D 4-ch.) EF > 52 FINDINGS: LEFT VENTRICLE The left ventricle is severely dilated. Left ventricular systolic function is severely decreased. Left ventricular diastolic function was not evaluated due to E/A fusion. Definity contrast used for endocardial border detection. Wall Motion: The entire anterior wall, entire lateral wall, entire septum, entire apex, and entire inferior wall are severely hypokinetic. RIGHT VENTRICLE The right ventricle is normal in size. Right ventricular systolic function is normal. RV systolic tissue Doppler velocity is 9.8 cm/s. Tricuspid annular displacement is 2.0 cm. Estimated right ventricular systolic pressure is not reported due to an insufficient tricuspid regurgitation signal. Estimated right atrial pressure is 3 mmHg based on IVC assessment. LEFT ATRIUM The left atrial cavity is mildly dilated. RIGHT ATRIUM The right atrial cavity is normal in size. Inferior Vena Cava: The inferior vena cava appears normal measuring 1.3 cm. The vessel decreases greater than 50 percent with inspiration. MITRAL VALVE There is mild mitral annular calcification observed posterior. There is mild (1+ - 2+) mitral valve regurgitation. There is a posteriorly directed regurgitant jet. There is mild thickening. Regurgitant orifice area (PISA) is 0.10 cm . TRICUSPID VALVE The tricuspid valve leaflets are structurally normal. There is trace tricuspid valve regurgitation. AORTIC VALVE There is no aortic valve regurgitation. Tricuspid aortic valve. There is mild thickening. PULMONIC VALVE The pulmonic valve was not seen or not interrogated. There is no pulmonic valve regurgitation. AORTA The visualized aorta is borderline dilated. Measurements - Aortic valve annulus 2.0 cm. Sinus: 3.9 cm. Sinotubular junction 2.9 cm. PULMONARY ARTERIES The pulmonary arteries are unseen or not interrogated. INTERATRIAL SEPTUM There is no evidence of intracardiac shunting as detected by Doppler. INTERVENTRICULAR SEPTUM There is no flow through the interventricular septum as detected by Doppler. PERICARDIUM There is no pericardial effusion. There is an epicardial fat pad. [facility] Echocardiography Rep ort: Transthoracic Echo [facility] Date of service: 09/05/2024 12:59:40 PM Ordering physician: MONICO AMARO Exam indication: Cardiomyopathy Technologist: Coby Beltran [facility] Interpreting physician: Nayla Raines MD PATIENT: Name: MR. VICTOR HUGO SHETH : 1950 Age: 74 years Gender: M Primary rhythm: sinus. Height: 170.18 cm BSA: 2.21 m Weight: 102.97 kg BMI: 35.6 kg/m Heart rate 102 bpm Color Doppler was utilized to interrogate the cardiac valves assessed and spectral Doppler was utilized to determine the flow velocities and pressure gradients reported in this exam. MEASUREMENTS: Value Indexed Normal Max aortic dimension 3.9 cm Ao < 3.8 Left atrial volume 79 ml (Garcia's) 37 ml/m Raisa <= 34 LV ID (diastole) 6.6 cm (2D) 2.99 cm/m LV ID (systole) 6.1 cm (2D) 2.78 cm/m IVS, leaflet tips 1.0 cm (2D) Posterior wall thickness 0.9 cm (2D) Left ventricular mass 266 g (2D) 120 g/m LV stroke volume 57 ml (2D 4-ch.) LV end diastolic volume 261 ml (2D 4-ch.) 118.3 ml/m 34<=EDVi<75 LV end systolic volume 204 ml (2D 4-ch.) 92.5 ml/m Ejection Fraction 22 % (2D 4-ch.) EF > 52 FINDINGS: LEFT VENTRICLE The left ventricle is severely dilated. Left ventricular systolic function is severely decreased. Left ventricular diastolic function was not evaluated due to E/A fusion. Definity contrast used for endocardial border detection. Wall Motion: The entire anterior wall, entire lateral wall, entire septum, entire apex, and entire inferior wall are severely hypokinetic. RIGHT VENTRICLE The right ventricle is normal in size. Right ventricular systolic function is normal. RV systolic tissue Doppler velocity is 9.8 cm/s. Tricuspid annular displacement is 2.0 cm. Estimated right ventricular systolic pressure is not reported due to an insufficient tricuspid regurgitation signal. Estimated right atrial pressure is 3 mmHg based on IVC assessment. LEFT ATRIUM The left atrial cavity is mildly dilated. RIGHT ATRIUM The right atrial cavity is normal in size. Inferior Vena Cava: The inferior vena cava appears normal measuring 1.3 cm. The vessel decreases greater than 50 percent with inspiration. MITRAL VALVE There is mild mitral annular calcification observed posterior. There is mild (1+ - 2+) mitral valve regurgitation. There is a posteriorly directed regurgitant jet. There is mild thickening. Regurgitant orifice area (PISA) is 0.10 cm . TRICUSPID VALVE The tricuspid valve leaflets are structurally normal. There is trace tricuspid valve regurgitation. AORTIC VALVE There is no aortic valve regurgitation. Tricuspid aortic valve. There is mild thickening. PULMONIC VALVE The pulmonic valve was not seen or not interrogated. There is no pulmonic valve regurgitation. AORTA The visualized aorta is borderline dilated. Measurements - Aortic valve annulus 2.0 cm. Sinus: 3.9 cm. Sinotubular junction 2.9 cm. PULMONARY ARTERIES The pulmonary arteries are unseen or not interrogated. INTERATRIAL SEPTUM There is no evidence of intracardiac shunting as detected by Doppler. INTERVENTRICULAR SEPTUM There is no flow through the interventricular septum as detected by Doppler. PERICARDIUM There is no pericardial effusion. There is an epicardial fat pad. CONCLUSIONS: - Exam indication: Cardiomyopathy - The left ventricle is severely dilated. Left ventricular systolic function is severely decreased. EF = 22 5% (2D 4-ch.) Definity contrast used for endocardial border detection. Left ventricular diastolic function was not evaluated due to E/A fusion. - The right ventricle is normal in size. Right ventricular systolic function is normal. - The left atrial cavity is mildly dilated. - The visualized aorta is borderline dilated with a maximal dimension of 3.9 cm. - Exam was compared with the prior echocardiographic exam performed on 09/23/2023. LV function has decreased. Increase in MR on today's study. * * * Final * * * [employer] [facility] : [id number] Normal [facility] NM CARDIAC PERF STRESS/PHARM on 09-05-2024 NM CARDIAC PERF STRESS/PHARM * * *Final Report* * * DATE OF EXAM: Sep 05 2024 4:01PM JERICHO 0006 - NM CARDIAC PERF STRESS/PHARM / PROCEDURE REASON: multiple diagnoses * * * * Physician Interpretation * * * * [place] CTAC Report: [facility] Date of service: 09/05/2024 1:52:10 PM CTAC interpreting physician: Javier Salazar MD PATIENT: Name: MR. VICTOR HUGO SHETH Age: 74 years Gender: M 1. Incidental Findings from limited non-diagnostic CTAC: - Coronary calcifications visualized. - Enlarged thoracic aorta. Recommend dedicated gated CT and/or comparison to prior studies, if available. Calcified lung nodule compatible with granuloma * * * Final * * * PATIENT: Name: MR. VICTOR HUGO SHETH Age: 74 years Gender: M CONCLUSIONS: 1. SPECT Perfusion Study: Abnormal. 2. There is no scintigraphic evidence for inducible ischemia. 3. There is a small (<10%) fixed perfusion defect in the LAD territory. 4. Left ventricle is severely dilated. The left ventricle systolic function is severely decreased. 5. This is a high risk scan due to calculated LVEF. Gated Stress IR:3D Gated Rest IR:3D LVEF % 27 30 Prior Study Comparison No prior nuclear cardiology exam available for comparison. Nuclear Med Report:1-Day Gated SPECT Myocardial Perfusion with Regadenoson Stress: Myocardial perfusion imaging was performed at rest 30 minutes following the IV injection of the radiotracer. The patient received 0.4 mg of regadenoson, via rapid IV push, immediately followed by radiotracer IV. Gated post stress tomographic imaging was performed 30 to 60 minutes later. See administered radiotracer and doses below. [facility] Date of service: 09/05/2024 1:52:10 PM Ordering Physician: MONICO AMARO. Requesting Physician: Indication: Dyspnea Interpreting physician: Dhaval Anthony MD Previous Cardiovascular Interventions: PCI : Stents x2 (8-10 years ago) Height: 170.18 cm BSA: 2.21 m? Weight: 102.97 kg BMI: 35.6 kg/m? CT Dose-Length Product(DLP): 93.6 mGy * cm. CT Dose Reduction Employed: Yes. Exam Type: Rest Stress Radiopharm: Tc-99m Tetrofosmin Tc-99m Tetrofosmin Dosage(mCi): 16 51.1 Atten Correction: performed performed Stress Agent: Regadenoson 0.4mg Supply provided from [facility] Resting Blood Press: 131/75 mmHg Image Quality The overall study imaging quality was deemed to be good. FINDINGS: Left Ventricle Wall Motion: Stress IR:3D - There is diffuse hypokinesis. Rest IR:3D - Gated Stress IR:3D - Gated Rest IR:3D - Reversibility - Stress IR:3D Stress IR:3D Gated Stress IR:3D Gated Rest IR:3D LVEF: 27 % 30 % ED Volume: 242 ml 231 ml ES Volume: 176 ml 162 ml TID: 1.10 Perfusion Findings Stress IR:3D - Summed Score=5 There is a moderate perfusion defect in the apex. There is a mild perfusion defect in the apical septal segment, apical anterior segment, and apical inferior segment. All remaining scored segments show normal perfusion. Rest IR:3D - Summed Score=5 There is a moderate perfusion defect in the apex. There is a mild perfusion defect in the apical septal segment, apical anterior segment, and apical inferior segment. All remaining scored segments show normal perfusion. Stress IR:3D Rest IR:3D Summed Score=5 Summed Score=5 LEFT VENTRICLE The left ventricle is severely dilated. Left ventricular systolic function is severely decreased. Right Ventricle The right ventricle is unseen or not interrogated. Stress Test Findings: There is no scintigraphic evidence for inducible ischemia. The left ventricular cavity size is unchanged with stress. * * * Final * * * Stress ECG Report: [facility] Date of service: 09/05/2024 1:52:10 PM Ordering physician: MONICO AMARO environmental air specialist: Kiara Bonner Water Engineer: Alla Mascorro Interpreting physician: Dayron Jacome MD Patient name: MR. VICTOR HUGO SHETH Age: 74 years Gender: M Height: 170.18 cm BSA: 2.21 m? Weight: 102.97 kg BMI: 35.6 kg/m? Indication: Dyspnea on exertion Stress ECG Conclusion: Conclusion: Normal Stress ECG Summary: The patient's resting heart rate was 95 bpm and blood pressure was 131/75 mmHg. The test was terminated due to end of protocol. Other symptoms during the test included SOB. The maximum heart rate was 105 bpm, which is 71% of the predicted heart rate for age. Peak blood pressure was 138/75 mmHg. The double product achieved was [address]. Previous cardiovascular interventions: PCI : Stents x2 (8-10 years ago) Medications: Last Used METFORMIN METOPROLOL LIPITOR (more content not included)... Normal [facility] 09-04-2024 [facility] Telephone (CDLBME) VICTOR HUGO SHETH ([id number]) 1950 M Date Time Provider Department 09/04/24 ALLA MASCORRO During your visit today, we recorded the following information about you: Alla Mascorro RN 09/04/2024 2:46 PM Signed Left message regarding reminder and instructions for stress test tomorrow. This included where to check in, length of test and no caffeine for 12 hours prior to test. Allergies As of Date: 09/04/2024 Noted Allergy Reaction RYBELSUS (SEMAGLUTIDE) 04/16/2021 6 - Diarrhea Date Reviewed: 08/01/2024 Reviewed by: Nikkie Abad MA - Fully Assessed Reason for Visit: Reminder Call [[id number]] Prescriptions as of 09/04/2024 - metFORMIN (GLUCOPHAGE) 1,000 mg tablet Take 1 tablet by mouth two times a day with meals. - metoprolol succinate ER (TOPROL XL) 50 mg 24 hr tablet Take 1 tablet by mouth once daily. - atorvastatin (LIPITOR) 80 mg tablet Take 1 tablet by mouth daily at bedtime. - glimepiride (AMARYL) 4 mg tablet Take 1 tablet by mouth two times a day with meals. - clopidogrel (PLAVIX) 75 mg tablet Take 1 tablet by mouth once daily. - empagliflozin (JARDIANCE) 25 mg tablet Take 1 tablet by mouth daily with breakfast. - lisinopril (ZESTRIL) 10 mg tablet Take 1 tablet by mouth once daily. - SITagliptin phosphate (JANUVIA) 100 mg tablet Take 1 tablet by mouth once daily. - blood sugar diagnostic (BLOOD GLUCOSE TEST) test strip Test blood sugar(s) 2 times daily. Dx: Other DM Code E11.42 Insulin: No - albuterol HFA (PROVENTIL HFA, VENTOLIN HFA) 90 mcg/actuation inhaler Inhale 2 Puffs as instructed every 4 hours as needed. - Lancets lancets Test blood sugar(s) 2 times daily. Dx: Other DM Code E11.42 Insulin: No - Blood-Glucose Meter Test Blood Sugars 2 times daily Dx E11.42 Insulin: No - flash glucose sensor (FREESTYLE ADRIAN 10 DAY SENSOR) kit 1 Each one time a week. Check blood sugar twice a day - flash glucose scanning reader (FREESTYLE ADRIAN 10 DAY READER) 1 Device twice daily. Check blood sugar twice a day Problem List As Of Date 09/04/2024 Noted Resolved Mixed hyperlipidemia [E78.2] 09/13/2012 Depression with anxiety [F41.8] Neck pain [M54.2] 10/04/2013 Carpal tunnel syndrome of right wrist [G56.01] 10/27/2013 DDD (degenerative disc disease), cervical [M50.* CAD (coronary artery disease), [place] coronary *05/14/2014 Ischemic cardiomyopathy [I25.5] 05/25/2014 Presence of drug coated stent in LAD coronary a*05/25/2014 Combined senile cataract [H25.819] 10/12/2014 06/10/2017 Vitreous floaters of both eyes [H43.393] 10/12/2014 Type 2 diabetes mellitus without retinopathy (H*10/12/2014 Tachycardia [R00.0] 10/30/2014 Chronic systolic congestive heart failure (HCC)*03/13/2015 Gastroesophageal reflux disease without esophag*03/13/2015 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] 03/13/2015 Smoker [F17.200] 03/13/2015 Diabetic eye exam (HCC) [Z01.00, E11.9] 05/15/2015 Uncontrolled type 2 diabetes mellitus with hype*07/18/2015 Type 2 diabetes mellitus with diabetic neuropat*11/20/2015 Combined forms of age-related cataract, bilater*06/15/2016 Screening for colon cancer [Z12.11] 12/29/2016 Obesity, Class II, BMI 35-39.9 [E66.812] 05/13/2017 Prostate disorder [N42.9] 11/03/2017 Encounter for Medicare annual wellness exam [Z0*11/17/2017 Combined forms of age-related cataract of both *06/15/2016 Essential hypertension [I10] 09/19/2018 Elevated PSA [R97.20] 01/26/2019 Medication management [Z79.899] 07/24/2019 Iron deficiency anemia [D50.9] 09/26/2019 DDD (degenerative disc disease), lumbar [M51.36*12/07/2019 Arthritis of both knees [M17.0] 12/12/2019 Corneal scar, 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] 07/18/2020 Dry eye syndrome of both eyes [H04.123] 07/18/[address] [Z78.9] 10/22/2021 Advance directive discussed with patient [Z71.8*10/22/2021 Prostate cancer (HCC) [C61] 03/03/2024 Congestive heart failure (HCC) [I50.9] 07/28/2024 Shortness of breath [R06.02] 07/28/2024 Encounter Status:Closed by TANIA ALLA on 09/04/24 [facility] Magnetic resonance imaging r eportOrdered By: Karthik Jeter on 08-22-2024 Study report [facility] Imaging Services [address] [place] [address] Spine Lumbar (Routine) MR#: [id number] Acct: [id number] Name: VICTOR HUGO SHETH Rep #: [id number] : 1950 M 74 From: Lexus Jeter MD PCP: Dr. Jorden Hartmann MD Status: REG CLI Study:Spine Lumbar (Routine) Date of Exam: 08/18/24 Exam# [id number] Ordering Dr: Aftab James PROCEDURE: SPINE LUMBAR (ROUTINE) 08/18/2024 REASON FOR EXAM: PAIN TECHNIQUE: SPINE LUMBAR (ROUTINE) COMPARISON: June 20, 2024 x-ray FINDINGS: There is grade 1 spondylolisthesis at L4-5, 0.4 cm. The vertebral body height is maintained. Vertebral body marrow signal is normal. Intervertebral disc signal shows desiccation. The facets are aligned. The L1-L2 level: There is mild central disc protrusion. There is no lateral recess stenosis or foraminal stenosis. There is no critical central canal stenosis. The L2-L3 level: There is mild central and right and left paracentral disc and osteophyte protrusion. There is mild bilateral lateral recess effacement. There is mild bilateral foraminal narrowing secondary to disc protrusion and facet hypertrophy. There is no critical central canal stenosis. The L3-L4 level: There is moderate central and right and left paracentral disc and osteophyte protrusion. There is moderate bilateral lateral recess stenosis. There is moderate bilateral foraminal narrowing secondary to disc protrusion and facet hypertrophy. There is mild central canal stenosis. The L4-L5 level: There is moderate central and right and left paracentral disc and osteophyte protrusion. There is moderate right and severe left lateral recess stenosis. There is moderate bilateral foraminal narrowing secondary to disc protrusion and facet hypertrophy. There is severe central canal stenosis, partly secondary to ligamentous hypertrophy. Bilateral facet effusions are present. The L5-S1 level: There is mild central disk protrusion. There is no lateral recess stenosis or foraminal stenosis. There is no critical central canal stenosis. The visualized conus shows normal signal characteristics. A 9 cm cyst is partlyvisible on the upper pole of the left kidney. MRI/Spine Lumbar (Routine) IMPRESSION: A 9 cm cyst is partly visible on the upper pole of the left kidney. There is grade 1 spondylolisthesis at L4-5, 0.4 cm. There is mild central canal stenosis at L3-4, severe central canal stenosis at L4-5, with lateral recess and foraminal narrowing. Reading [facility] CC: MARCIA Pérez; Dr. Jorden Hartmann MD ~ Biological Sciences Professor: Signed [facility] Spine Lumbar (Routine)on Spine Lumbar (Routine) [facility] Imaging Services [address] [place], [place] [id number] Spine Lumbar (Routine) MR#: [id number] Acct: [id number] Name: VICTOR HUGO SHETH Rep #: [id number] : 1950 M 74 From: Karthik Jeter MD PCP: Dr. Jorden Hartmann MD Status: REG CLI Study: Spine Lumbar (Routine) Date of Exam: 08/18/24 Exam# [id number] Ordering Dr: Acacia James PROCEDURE: SPINE LUMBAR (ROUTINE) 08/18/2024 REASON FOR EXAM: PAIN TECHNIQUE: SPINE LUMBAR (ROUTINE) COMPARISON: June 20, 2024 x-ray FINDINGS: There is grade 1 spondylolisthesis at L4-5, 0.4 cm. The vertebral body height is maintained. Vertebral body marrow signal is normal. Intervertebral disc signal shows desiccation. The facets are aligned. The L1-L2 level: There is mild central disc protrusion. There is no lateral recess stenosis or foraminal stenosis. There is no critical central canal stenosis. The L2-L3 level: There is mild central and right and left paracentral disc and osteophyte protrusion. There is mild bilateral lateral recess effacement. There is mild bilateral foraminal narrowing secondary to disc protrusion and facet hypertrophy. There is no critical central canal stenosis. The L3-L4 level: There is moderate central and right and left paracentral disc and osteophyte protrusion. There is moderate bilateral lateral recess stenosis. There is moderate bilateral foraminal narrowing secondary to disc protrusion and facet hypertrophy. There is mild central canal stenosis. The L4-L5 level: There is moderate central and right and left paracentral disc and osteophyte protrusion. There is moderate right and severe left lateral recess stenosis. There is moderate bilateral foraminal narrowing secondary to disc protrusion and facet hypertrophy. There is severe central canal stenosis, partly secondary to ligamentous hypertrophy. Bilateral facet effusions are present. The L5-S1 level: There is mild central disk protrusion. There is no lateral recess stenosis or foraminal stenosis. There is no critical central canal stenosis. The visualized conus shows normal signal characteristics. A 9 cm cyst is partly visible on the upper pole of the left kidney. MRI/Spine Lumbar (Routine) IMPRESSION: A 9 cm cyst is partly visible on the upper pole of the left kidney. There is grade 1 spondylolisthesis at L4-5, 0.4 cm. There is mild central canal stenosis at L3-4, severe central canal stenosis at L4-5, with lateral recess and foraminal narrowing. Reading Location: [facility] CC: MARCIA Pérez; Dr. Jorden Hartmann MD Biological Sciences Professor: Signed Normal [facility] Plastic Surgery Visit Report on 08-11-2024 Plastic Surgery Visit Report [facility] Plastic Reconstructive Surgery [address], [address] [place] [address] OFFICE VISIT Date of Service: 08/11/24 MR#: [id number] Acct: [id number] Name: VICTOR HUGO SHETH Rep #: [id number] : 1950 Provider: Dr. Guru Antony MD Age/Sex: 74/M Location: [facility] [place] Status: Signed Intake Vital Signs 07/04/24 14:28 08/11/24 14:44 Height 5 ft 7 in 5 ft 7 in Weight: 222 lb 2 oz BMI 34.7 BP 130/74 H Blood Pressure Location Lt brachial Position Sitting Respiration 16 Pulse 101 H Temp 97.8 F Temp Source Oral Pulse Oximetry (%) 94 Oxygen Delivery Method room air Intake Visit Reasons: DISCUSS POSSIBLE SURGERY Chief Complaint: discussion of surgery right carpal tunnel Accompanied by: Friend Is patient in pain?: Yes (10/01) Allergies No Known Allergies Allergy (Verified 07/04/24 14:31) Medications ???Medication ???Instructions ???Recorded ???Confirmed ???Type albuterol sulfate 2.5 mg/3 mL 2.5 mg inhalation Q4H PRN PRN Sob 05/10/14 07/04/24 History (0.083 %) solution for nebulization /Or Wheezing albuterol sulfate 90 mcg/actuation 2 puff inhalation Q4H PRN PRN So b 05/10/14 07/04/24 History aerosol inhaler (Ventolin HFA) /Or Wheezing metformin 500 mg tablet,extended 1,000 mg PO BID 05/10/14 07/04/24 History release 24 hr atorvastatin 80 mg tablet 80 mg PO QHS 05/26/24 08/11/24 His tory clopidogrel 75 mg tablet 75 mg PO QDAY 05/26/24 08/11/24 Hi story empagliflozin 25 mg tablet 25 mg PO QAM 05/26/24 08/11/24 His tory (Jardiance) glimepiride 4 mg tablet 4 mg PO BID 05/26/24 08/11/24 Hist ory lisinopril 10 mg tablet 10 mg PO QDAY 05/26/24 08/11/24 Hi story metoprolol succinate 25 mg 25 mg PO QDAY 05/26/24 08/11/24 Hi story tablet,extended release 24 hr sitagliptin phosphate 100 mg 100 mg PO QDAY 05/26/24 08/11/24 H istory tablet (Januvia) Have you fallen in the past year?: No Nurse's Note: pt here to discuss right carpal tunnel release PFSH Medical History Pain Family history of prostate problems Heart failure High blood pressure High cholesterol Neuropathy Cancer Carpal tunnel syndrome Family History Other Cancer Diabetes Heart disease Hypertension Social History Smoking Status: Light Smoker (<10/day) Tobacco: How many years used: 50 HPI DISCUSS POSSIBLE SURGERY Details: HPI from 20 Apr 2024: Victor Hugo Dorman is a delightful 74-year-old male with a complicated past medical history including type 2 diabetes and congestive heart failure who presents with right hand numbness and tingling that has gotten worse over the past 6 months after he had a volar hand dog bite from a known dog. At the time of the injury he did not seek medical attention. The laceration was on the radial side of his palm between the index and long finger metacarpal. He reports that it healed up its own but that he has had numbness and tingling throughout the hand since this time, worse on the index and long fingers. He is also noticed a divot on his right thumb thenar musculature. Patient reports positive nighttime pain and tingling for the numbness and tingling. He has never had any hand surgery, or any other trauma. He has had several tetanus shots in the past and is up-to-date reportedly. He continues to smoke (5 cigarettes/day) He is right-handed Of note he is also reporting bilateral lower extremity tingling and burning sensation with excessive walking/physical exertion. He noticed this for the past couple years. 11 May 2024: Patient here to further discuss his right hand problems. He decided to not get the EMG/nerve conduction study as he reports that he is had one for years ago. We talked about carpal tunnel syndrome again today, as well as sequelae from his dog bite injury from 6 months ago. Patient most concerned about his lower extremity pain today. He reports that the pain only comes when he is walking and it is in the thighs. It is not an electrical pain necessarily, it is more of a muscle pain. He would like this worked up first before he has any further discussion or workup regarding his hands. CURRENT ENCOUNTER, 11 August 2024: The patient is a 74-year-old male presenting with symptoms related to carpal tunnel syndrome and possible cubital tunnel syndrome. He reports numbness and tingling in the radial three digits, particularly the index and long fingers, which worsens at night and disrupts sleep. The patient has a history of mild carpal tunnel syndrome diagnosed over a decade ago, with symptoms now suggesting progression to severe carpal tunnel syndrome.The (more content not included)... Normal [facility] CNOVon 08-01-2024 CNOV Office Visit (CARDMM ) VICTOR HUGO SHETH ([id number]) 1950 M Date Time Provider Department 08/01/24 2:20 PM MONICO AMARO During your visit today, we recorded the following information about you: Pulse Blood pressure Weight Height 105/minute 116/68 103 kg 1.702 m Monico Amaro MD 08/01/2024 4:14 PM Signed [facility] SECTION OF REGIONAL CARDIOLOGY OUTPATIENT VISIT DATE 08/01/2024 OUTPATIENT VISIT TYPE NEW PRIMARY CARE PHYSICIAN: Jorden Hartmann [address] [place] [id number] Patient is being seen at the request of the referring physician for establishment of care HISTORY OF PRESENT ILLNESS: Mr. Sheth is a 74 year old male, hx of CHF, DIABETES MELLITUS, hypertension, HLD, ACS s/p YESENIA to pLAD and mLAD on 04/2014, is referred for CAD. He was last seen in the cardiology office by Dr. Pablo Preciado on 02/28/2018. He denies chest pain, SOB, palpitations, orthopnea, PND, leg swelling, lightheadedness, syncope. He reported fatigue on metoprolol 200 mg po daily and states that his dose was decreased to 25 mg po daily. He reported lightheadedness on higher dose lisinopril and is currently on 10 mg po daily. 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 He reports tingling and numbness in bilateral LE as well as scrotal tingling x 4-5 months. He states that he had bilateral UE and LE BP testing which were normal to his knowledge. ECG showed sinus tachycardia HR 105 Qtc re measured 476 ms TTE 09/23/2023: EF 35% [EF 41% per TTE 2017],0.9/0.9, dilated LV, trace MR, TR PAST MEDICAL HISTORY Diagnosis Date Advance directive discussed with patient 10/22/2021 Discussed 09/2021 Arthritis of both knees 12/12/2019 CAD (coronary artery disease), [place] coronary artery 05/14/[address] Khalil [facility] 05/14/[address] [facility] report from [facility], showed 85% stenosis in pLAD followed by 95% stenosis and 50-75% stenosis in mid LAD. Minimal disease in LCx and LCA. RCA with proximal and distal 25% stenosis. [facility] 05/17 s/p YESENIA x2 to LAD Plan: Dc home with follow-up Continue Plavix Carpal tunnel syndrome of right wrist 10/27/2013 EMG/NCT 10/27/13=mild right CTS Chronic systolic congestive heart failure (HCC) 03/13/2015 08/02/2018: Home BP Cuff Validated. Home BP: 118/71 Office BP: 116/72 Combined forms of age-related cataract of both eyes 06/15/2016 Combined forms of age-related cataract, bilateral 06/15/2016 Congestive heart failure (HCC) 03/13/2015 COPD with chronic bronchitis (HCC) 03/13/2015 Corneal scar, right eye 07/18/2020 DDD (degenerative disc disease), cervical DDD (degenerative disc disease), lumbar 12/07/2019 Depression with anxiety Diabetic eye exam (HCC) 05/15/2015 Last done 06/27/2018: no retinopathy. Dry eye syndrome of both eyes 07/18/2020 Elevated PSA 01/26/2019 Encounter for Medicare annual wellness exam 11/17/2017 Medicare Part B: 12/23/2016 last done: 09/10/2023 Does not want ELMO or colonoscopy Essential hypertension 09/19/2018 Gastroesophageal reflux disease without esophagitis 03/13/2015 History of compression fracture of spine 1971 high school football Iron deficiency anemia 09/26/2019 Iron deficiency anemia 09/26/2019 EGD and colonoscopy done 10/2019 Ischemic cardiomyopathy 05/25/2014 Leukocytosis 09/19/2018 Repeat 10/2018 ok Living will in place 10/22/2021 DPA: Jon (son) Medicare annual wellness visit, initial 11/17/2017 Medicare Part B: 12/23/2016 last done: 01/26/2019 Does not want ELMO or colonoscopy Mixed hyperlipidemia 09/13/2012 Neck pain 10/04/2013 Obesity, Class II, BMI 35-39.9 05/13/2017 Presence of drug coated stent in LAD coronary artery 05/25/2014 Smoker 03/13/2015 Started at 20 yo up to 2 PPD. as of 02/2015 only 5 cigs a day Tachycardia 10/30/2014 Thrombocytosis 09/19/2018 Repeat 10/2018 ok Type 2 diabetes mellitus with diabetic neuropathy, without long-term current use of insulin (HCC) 11/20/2015 Type 2 diabetes mellitus without retinopathy (HCC) 10/12/2014 Vitreous floaters of both eyes 10/12/2014 PAST SURGICAL HISTORY Procedure Laterality Date COLONOSCOPY FLX DX W/COLLJ SPEC WHEN PFRMD 11/16/2019 Colonoscopy ESOPHAGOGASTRODUODENOSCOPY TRANSORAL DIAGNOSTIC 11/16/2019 EGD HEART CATHETERIZATION 05/14/2014 triple vessel disease, YESENIA x 2 to the prox and mid LAD IMMUNOCHEMICAL FECAL OCCULT BLOOD TEST 03/08/2019 negative PAST SURGICAL HISTORY OF 1971 vertebral fracture in football? no repair. REPAIR FINGER TENDON left hand- cut tendons with chain saw TONSILLECTOMY AND ADENOIDECTOMY AGE 14/> 1982 TONSILLECTOMY HX Social History Tobacco Use Smoking status: Every Day Current packs/day: 0.30 Average packs/day: 0.3 packs/day for 40.0 years (12.0 ttl pk-yrs) Types: Cigarettes Passive exposure: Never Smokeless tobacco: Never Tobacco comments: starte (more content not included)... Normal [facility] [id number] 08-01-2024 ECG01 Ventricular Rate : 1 05 BPM Atrial Rate : 105 BPM P-R Interval : 156 ms QRS Duration : 106 ms Q-T Interval : 384 ms QTC Calculation(Bazett) : 507 ms Calculated P [place] : 73 degrees Calculated R [place] : -41 degrees Calculated T [place] : 38 degrees SINUS TACHYCARDIA WITH OCCASIONAL PREMATURE VENTRICULAR COMPLEXES LEFT AXIS DEVIATION ABNORMAL ECG Confirmed by MD YANNA, NAYLA ([id number]) on 08/02/2024 11:46:14 AM NAME : VICTOR HUGO SHETH PID : [id number] : 1950 Gender : Male Race : ORD : Procedure Date : Aug 01 2024 14:32:55 Edit Date : Aug 02 2024 11:46:15 Diagnosis: SINUS TACHYCARDIA WITH OCCASIONAL PREMATURE VENTRICULAR COMPLEXES LEFT AXIS DEVIATION ABNORMAL ECG Confirmed by MD RAINES QARAB ([id number]) on 08/02/2024 11:46:14 AM Test Reason : Location : [facility] Overread By : MD RAINES QARAB Edited By : MD RAINES QARAB Referred By : DEBORA MARTINEZ Acquired by : Carmelo quarles [facility] Cerv Spine 4 or 5 Viewson Cerv Spine 4 or 5 Views [facility] Imaging Services [address] [place] [id number] Cerv Spine 4 or 5 Views MR#: [id number] Acct: [id number] Name: VICTOR HUGO SHETH Rep #: [id number] : 1950 M 74 From: Alec Linton MD PCP: Dr. Jorden Hartmann MD Status: DEP AMB Study: Cerv Spine 4 or 5 Views Date of Exam: 07/04/24 Exam# [id number] Ordering Dr: Acacia James PROCEDURE: CERV SPINE 4 OR 5 VIEWS 07/04/2024 REASON FOR EXAM: CHRONIC PAIN TECHNIQUE: 4 views of the cervical spine. COMPARISON: None FINDINGS: Straightening of the normal cervical lordosis. There is mild anterolisthesis of C4 on C5 on the flexion and extension views. Advanced multilevel degenerative changes with disc space narrowing, disc osteophyte formation, and facet arthrosis. Changes are most pronounced at C3-4, C5-6, and C6-7. There is a calcified nodule in the left lung apex measuring 9 mm. RAD/Cerv Spine 4 or 5 Views IMPRESSION: 1. Advanced multilevel degenerative changes of the cervical spine. 2. Calcified nodule measuring 9 mm in the left lung apex, likely a calcified granuloma. Consider low-dose CT for confirmation if patient has history of malignancy. Reading Location: [id number] CC: MARCIA Pérez; Dr. Jorden Hartmann MD Biological Sciences Professor: Signed Normal [facility] L/S Spine Bending Flex/[place] 07-04-2024 L/S Spine Bending Flex/Ext [facility] Imaging Services [address] [place], [place] [id number] L/S Spine Bending Flex/Ext MR#: [id number] Acct: [id number] Name: VICTOR HUGO SHETH Rep #: [id number] : 1950 M 74 From: Karthik Jeter MD PCP: Dr. Jorden Hartmann MD Status: DEP AMB Study: L/S Spine Bending Flex/Ext Date of Exam: 07/04 Exam# [id number] Ordering Dr: Acacia James PROCEDURE: L/S SPINE BENDING FLEX/EXT 07/04/2024 REASON FOR EXAM: CHRONIC PAIN TECHNIQUE: Flexion and extension views of the lumbar spine COMPARISON: June 20, 2024 FINDINGS: There is grade 1 spondylolisthesis at L4-5, 1.0 cm with flexion, 0.5 cm with extension. There is no acute fracture. There is loss of disc height from T12-L3 and from L4-S1. There is severe facet sclerosis. Vascular calcifications are noted. RAD/L/S Spine Bending Flex/Ext IMPRESSION: There is grade 1 spondylolisthesis at L4-5, 1.0 cm with flexion, 0.5 cm with extension. Reading Location: LUIZA CC: MARCIA Pérez; Dr. Jorden Hartmann MD Biological Sciences Professor: Signed [facility] Orthopedic Visit Reporton Orthopedic Visit Report [facility] [address] [place] [address] OFFICE VISIT Date of Service: 07/04/24 MR#: [id number] Acct: [id number] Name: VICTOR HUGO SHETH Rep #: [id number] : 1950 Provider: MARCIA Pérez Age/Sex: 74/M Location: [facility] [place] Status: Signed Intake Vital Signs 04/20/24 15:44 07/04/24 14:28 Height 5 ft 7 in 5 ft 7 in Weight: 222 lb 2 oz BMI 34.7 Intake Visit Reasons: LUMBAR SPINE Chief Complaint: Lumbar spine pain Accompanied by: Self Is patient in pain?: Yes Pain scale (1-10): 10 Allergies No Known Allergies Allergy (Verified 07/04/24 14:31) Medications ???Medication ???Instructions ???Recorded ???Confirmed ???Type albuterol sulfate 2.5 mg/3 mL 2.5 mg inhalation Q4H PRN PRN Sob 05/10/14 07/04/24 History (0.083 %) solution for nebulization /Or Wheezing albuterol sulfate 90 mcg/actuation 2 puff inhalation Q4H PRN PRN So b 05/10/14 07/04/24 History aerosol inhaler (Ventolin HFA) /Or Wheezing metformin 500 mg tablet,extended 1,000 mg PO BID 05/10/14 07/04/24 History release 24 hr atorvastatin 80 mg tablet 80 mg PO QHS 05/26/24 07/04/24 His tory clopidogrel 75 mg tablet 75 mg PO QDAY 05/26/24 07/04/24 Hi story empagliflozin 25 mg tablet 25 mg PO QAM 05/26/24 07/04/24 His tory (Jardiance) glimepiride 4 mg tablet 4 mg PO BID 05/26/24 07/04/24 Hist ory lisinopril 10 mg tablet 10 mg PO QDAY 05/26/24 07/04/24 Hi story metoprolol succinate 25 mg 25 mg PO QDAY 05/26/24 07/04/24 Hi story tablet,extended release 24 hr sitagliptin phosphate 100 mg 100 mg PO QDAY 05/26/24 07/04/24 H istory tablet (Januvia) Have you fallen in the past year?: Yes PFSH Medical History Pain Family history of prostate problems Heart failure High blood pressure High cholesterol Neuropathy Cancer Carpal tunnel syndrome Family History Other Cancer Diabetes Heart disease Hypertension Social History Tobacco: How many years used: 50 HPI LUMBAR SPINE Details: This documentation accurately reflects the service provided and the decisions made by me, MARCIA Pérez 07/04/24 1428. Part of today???s visit was documented by Mathew Silva MA, acting as scribe. VICTOR HUGO SHETH is a 74 year old M here today for lumbar spine pain. Patient is having pain through the whole back. The pain is sharp, stabbing, sore, and achy. Patient has numbness and tingling in the back, shoulders and arms. Left shoulder is worse than the right. Pain down the bilateral arms that extends to hands. Being active increases his pain. Says it's equal in both sides. He has right carpal tunnel and Dr. Antony who wanted to do a release but the patient didn't want to proceed with that at that time. The patient had an EMG from 2013 which showed mild right carpal tunnel. He denies any balance changes. When he was in high school playing football he smashed his vertebra, no treatment at that time. The patient also has pain that extends down into his legs. This has been going on for 6-9 months. Patient denies any surgeries on the back. Walking makes the pain worse. When he walks too long, the back of the thighs go numb and he feels like he's going to fall. Says that he can only walk for about 100 feet before he needs to sit down. This walking distance has not drastically decreased over the last 6 to 9 months. This pain is equal on both legs and stops at the knees. Sitting makes it better. Does lean on a cart which only helps a little. No surgeries. Patient denies any injections or physical therapy on the back. Patient denies any use of cane or walker when walking. Dropping things out of his hands such as a cigarette and a pencil and feels like this has been worsening however he relates this to the carpal tunnel in his right hand. Not using a cane or a walker. No low back pain, just pain in the legs. Patient has type 2 diabetes unsure of last a1c, he takes Plavix for 2 stent placements, and he just got done with radiation for prostate cancer. Not doing chemo. Patient smokes 5 cigarettes a day. No abdominal surgeries. Ortho Exam General General: Yes no acute distress Neurologic: Yes alert and Yes oriented x3 Spine SPINE TESTING CERVICAL THORACIC LUMBAR Musculoskeletal Strength 0=absent - 5=normal Details: Neurological exam of the upper and lower extremities shows 5X5 power. Normal sensation across all dermatomes. No hyperreflexia. Joaquin's negative. No midline or paraspinal tenderness above the cervical and lumbar spine. Coding Level of Care Code Off vis (more content not included)... Normal [facility] Lumbar Spine 2 or 3 Viewson 06-20-2024 Lumbar Spine 2 or 3 Views [facility] Imaging Services [address] [place], [place] [id number] Lumbar Spine 2 or 3 Views MR#: [id number] Acct: [id number] Name: VICTOR HUGO SHETH Rep #: [id number] : 1950 M 74 From: Aston [place] MD PCP: Dr. Jorden Hartmann MD Status: REG CLI Study: Lumbar Spine 2 or 3 Views Date of Exam: Exam# [id number] Ordering Dr: Claudia Castro PROCEDURE: LUMBAR SPINE 2 OR 3 VIEWS 06/20/2024 REASON FOR EXAM: CLAUDICAITON, RADICULAR PAIN TECHNIQUE: 2 view(s) of the lumbar spine FINDINGS: Vertebrae: No acute fracture. Discs: Mild multilevel disc space narrowing. Alignment: Mild levoscoliosis centered at L3. 5 mm of anterolisthesis of L4 on L5. Other: Facet hypertrophy. RAD/Lumbar Spine 2 or 3 Views IMPRESSION: Mild levoscoliosis with degenerative disc disease with 5 mm of anterolisthesis of L4 on L5. Reading Location: [id number] CC: MARCIA Roper; Dr. Jorden Hartmann MD Biological Sciences Professor: Signed Normal [facility] Lower Ext Art Exam w/ Exerci mina 06-12-2024 Lower Ext Art Exam w/ Exercise [facility] Cardi[facility] Services [address] [place] [address] Lower Ext Art Exam w/ Exercise 06/12/24 1056 MR#: [id number] Acct: [id number] Name: VICTOR HUGO SHETH Rep #: [id number] : 1950 74 From: Cornell Self MD Attending Dr: MARCIA Roper Status: REG CLI Ordering Dr: Claudia Castro Date: 06/12/24 Location: [facility] Sex: M C Admitted: Reason For Study Reason For Study: CLAUDICATION Procedure A bilateral lower extremity continuous wave Doppler with analog waveform analysis,segmental pressures,and ankle brachial indexes with exercise. Left Segmental Pressures Left posterior tibial artery = 152mmHg. Left dorsalis pedis artery = 131mmHg. Left digit = 154 mmHg. The left posterior tibial artery waveforms are triphasic. The left dorsalis pedis waveforms are triphasic. Right Segmental Pressures Right posterior tibial artery = 161mmHg. Right dorsalis pedis artery = 140mmHg. Right digit = 153 mmHg. The right posterior tibial artery waveforms are biphasic. The right dorsalis pedis waveforms are triphasic. Indices The right ankle brachial index by the posterior tibial artery is 1.18. The right ankle brachial index by the dorsalis pedis is 1.02. The right digital-brachial index is 1.12. The right post exercise ankle brachial index is 1.23. The left ankle brachial index by the posterior tibial artery is 1.11. The left ankle brachial index by the dorsalis pedis is 0.96. The left digital-brachial index is 1.12. The left post exercise ankle brachial index is 1.19. VL/Lower Ext Art Exam w/ Exercise Interpretation Summary Right RAQUEL 1.18, normal. TBI and Doppler/PVR waveforms of the right leg normal at rest. Right lower extremity exhibits normal response to exercise. Left RAQUEL 1.11, normal. TBI and Doppler/PVR waveforms of the left leg normal at rest. Left lower extremity exhibits normal response to exercise. Ordering Physician: Claudia Castro Referring Physician: Jorden Hartmann Performed By: Shiv Prather, T 06/12/241854 Date Cornell Self MD CC: MARCIA Roper; Dr. Jorden Hartmann MD Date Dictated: 06/12/241055 Date Transcribed: 06/12/241854 Biological Sciences Professor: Signed Normal [facility] CNOVon 06-02-2024 CNOV Office Visit (RADTWS ) VICTOR HUGO SHETH ([id number]) 1950 M Date Time Provider Department 06/02/24 2:15 PM HAYLEY GUTIERREZ RADTWS During your visit today, we recorded the following information about you: Temperature Pulse Respiration Blood pressure 97.2 degrees 113/minute 16/minute 131/78 Weight 105.7 kg Hayley Gutierrez MD 06/02/2024 2:44 PM Signed Radiation Oncology - On Treatment Review (OTR) Note PATIENT NAME: Victor Hugo Sheth PATIENT DIAGNOSIS: Clinical stage IIA, cT1c, prostatic adenocarcinoma with Mabscott score 7 (3+4), grade group 2 and PSA 5.86 ng/mL. COURSE: definitive AREA TREATED: Pelvis/Prostate/SV CURRENT DOSE: 7000 cGy in 28 fx PLANNED DOSE: 7000 cGy in 28 fx SUBJECTIVE: He is doing well without any specific new complaints related to radiation treatment. He denies any problems with urination or bowel movements. EXAM: KPS: 90 General Appearance: Alert and oriented. No acute distress. IMAGING/LAB RESULTS: None Treatment chart checked: Yes Patient treatment site reviewed and verified:Yes CBCTs reviewed and current:Yes Medications started: None ASSESSMENT/PLAN: Clinically stable. Toxicity within expected parameters. He finished radiation treatment as planned today. Follow-up with me in four weeks. MD Christin Rowan Debra, RN 06/02/2024 2:44 PM Signed Radiation Therapy - Nursing Note (OTV) PATIENT NAME: Victor Hugo Sheth PATIENT June 02, 2024 [facility] FACILITY/LOCATION: [facility] NOTE TYPE: PROSTATE - MALE PELVIS Subjective Data No c/o Additional Data Do you want to see a Network Engineer? No Status: Patient is male Stress Scale: On a scale of 0 to 10, what number best describes how much distress you have experienced in the past week?(0 being no distress and 10 being extreme distress) 6 Social work notified: Pt denied need to see social service worker at this time. Nursing Assessment Fatigue: moderate; causing difficulty performing some activities Appetite: good Nutritional Intake: Regular oral intake. Weight Gain/Loss: No Ambulatory weight history: Last 6 Encounter Wt Readings: Date: Wt: 06/02/2024 105.7 kg (233 lb) 05/02/2024 108 kg (238 lb 3.2 oz) 03/23/2024 106.1 kg (234 lb) 02/29/2024 102.5 kg (226 lb) 11/23/2023 102.1 kg (225 lb) 09/10/2023 99.3 kg (219 lb) Nausea:None Vomiting: None Bowel Function: normal bowel movements Erythema/Hyperpigmentation: none Desquamation:none Rash:none Skin Care: Aquaphor Skin Sensation: Within Normal Limits Focused Assessment PROSTATE - MALE PELVIS: Rectal bleeding: No. Rectal pain: No. Bladder function: no problems. Urinary frequency (D/N): 6/2-3. AMBULATORY PATIENT EDUCATION NOTE TOPIC: SURVIVAL SKILLS: Symptom Management READINESS TO LEARN COGNITIVE ABILITY: Alert and oriented MOTIVATION TO LEARN: Eager Interested FAMILY SUPPORT: Unable to assess - Family not present INSTRUCTION PROVIDED TO: Patient PATIENT LEARNS BEST BY: Multiple Methods FACTORS AFFECTING LEARNING: None PHYSICAL LIMITATIONS AFFECTING LEARNING: None LEARNING RESPONSE DIAGNOSIS: C61 METHOD OF INSTRUCTION: Teach Back skin care Individual instruction Written instruction/Handouts Verbal instruction PATIENT / FAMILY RESPONSE: Verbalizes understanding of: SYMPTOM MANAGEMENT-Correct actions to take to manage symptoms associated with his/her disease/illness FOLLOW-UP PLAN: Patient instructed to call with any further issues Re-teach - Using different method Contact information given. SUPPLEMENTAL MATERIAL: D/C sheet REFERRAL (RECOMMENDATION): None Written discharge instructions given and reviewed with patient. Patient verbalizes understanding. Encouraged to call with any questions or concerns. Instruction for 4 week phone follow up appointment given by Dr. Gutierrez. Electronically Signed By: Alma Delia Ye, RN In Department: RADIATION ONCOLOGY Time spent on patient education: 05 minutes. Allergies As of Date: 06/02/2024 Noted Allergy Reaction RYBELSUS (SEMAGLUTIDE) 04/16/2021 6 - Diarrhea Date Reviewed: 06/02/2024 Reviewed by: Alma Delia Ye, RN - Fully Assessed Reason for Visit: Radiotherapy On-treatment Visit [1722] Primary Visit Diagnosis:Prostate cancer (HCC) [C61] Prescriptions as of 06/02/2024 - atorvastatin (LIPITOR) 80 mg tablet Take 1 tablet by mouth daily at bedtime. - glimepiride (AMARYL) 4 mg tablet Take 1 tablet by mouth two times a day with meals. - clopidogrel (PLAVIX) 75 mg tablet Take 1 tablet by mouth once daily. - empagliflozin (JARDIANCE) 25 mg tablet Take 1 tablet by mouth daily with breakfast. - lisinopril (ZESTRIL) 10 mg tablet Take 1 tablet by mouth once daily. - metFORMIN (GLUCOPHAGE) 1,000 mg tablet Take 1 tablet by mouth two times a day with meals. - metoprolol succinate ER (TOPROL XL) 25 mg 24 hr tablet Take 1 tablet by (more content not included)... Normal [facility] CNOVon 05-30-2024 CNOV Office Visit (RADTWS ) VICTOR HUGO SHETH ([id number]) 1950 M Date Time Provider Department 05/30/24 2:15 PM HAYLEY GUTIERREZ During your visit today, we recorded the following information about you: Temperature Pulse Blood pressure 98 degrees 100/minute 127/84 Sheyla Garcia RN 05/30/2024 2:35 PM Signed Radiation Therapy - Nursing Note (OTV) PATIENT NAME: Victor Hugo Sheth PATIENT May 30, 2024 [facility] FACILITY/LOCATION: [facility] NOTE TYPE: PROSTATE - MALE PELVIS Subjective Data no new complaints Additional Data Do you want to see a Network Engineer? No Status: Patient is male Stress Scale: On a scale of 0 to 10, what number best describes how much distress you have experienced in the past week?(0 being no distress and 10 being extreme distress) 0 Social work notified: Pt denied need to see social service worker at this time. Nursing Assessment Fatigue: increased fatigue over baseline but not altering normal activities Appetite: good Nutritional Intake: Regular oral intake. Weight Gain/Loss: Not applicable Ambulatory weight history: Last 6 Encounter Wt Readings: Date: Wt: 05/02/2024 108 kg (238 lb 3.2 oz) 03/23/2024 106.1 kg (234 lb) 02/29/2024 102.5 kg (226 lb) 11/23/2023 102.1 kg (225 lb) 09/10/2023 99.3 kg (219 lb) 12/03/2022 101.6 kg (224 lb) Nausea:None Vomiting: None Bowel Function: normal bowel movements Erythema/Hyperpigmentation: none Desquamation:none Rash:none Skin Care: Aquaphor Skin Sensation: Within Normal Limits Focused Assessment PROSTATE - MALE PELVIS: Rectal bleeding: No. Rectal pain: No. Bladder function: no problems. Urinary frequency (D/N): stable/stable. SIGNED by: GARRETT Serrano Daesung, MD 05/30/2024 2:35 PM Signed Radiation Oncology - On Treatment Review (OTR) Note PATIENT NAME: Victor Hugo Sheth PATIENT DIAGNOSIS: Clinical stage IIA, cT1c, prostatic adenocarcinoma with Mabscott score 7 (3+4), grade group 2 and PSA 5.86 ng/mL. COURSE: definitive AREA TREATED: Pelvis/Prostate/SV CURRENT DOSE: 6250 cGy in 25 fx PLANNED DOSE: 7000 cGy in 28 fx SUBJECTIVE: He is doing well without any specific new complaints related to radiation treatment. He denies any problems with urination or bowel movements. EXAM: KPS: 90 General Appearance: Alert and oriented. No acute distress. IMAGING/LAB RESULTS: None Treatment chart checked: Yes Patient treatment site reviewed and verified:Yes CBCTs reviewed and current:Yes Medications started: None ASSESSMENT/PLAN: Clinically stable. Toxicity within expected parameters. Continue radiation treatment as planned. Hayley Gutierrez MD Allergies As of Date: 05/30/2024 Noted Allergy Reaction RYBELSUS (SEMAGLUTIDE) 04/16/2021 6 - Diarrhea Date Reviewed: 05/30/2024 Reviewed by: Sheyla Garcia RN - Fully Assessed Reason for Visit: Radiotherapy On-treatment Visit [1722] Primary Visit Diagnosis:Prostate cancer (HCC) [C61] Prescriptions as of 05/30/2024 - atorvastatin (LIPITOR) 80 mg tablet Take 1 tablet by mouth daily at bedtime. - glimepiride (AMARYL) 4 mg tablet Take 1 tablet by mouth two times a day with meals. - clopidogrel (PLAVIX) 75 mg tablet Take 1 tablet by mouth once daily. - empagliflozin (JARDIANCE) 25 mg tablet Take 1 tablet by mouth daily with breakfast. - lisinopril (ZESTRIL) 10 mg tablet Take 1 tablet by mouth once daily. - metFORMIN (GLUCOPHAGE) 1,000 mg tablet Take 1 tablet by mouth two times a day with meals. - metoprolol succinate ER (TOPROL XL) 25 mg 24 hr tablet Take 1 tablet by mouth once daily. - SITagliptin phosphate (JANUVIA) 100 mg tablet Take 1 tablet by mouth once daily. - blood sugar diagnostic (BLOOD GLUCOSE TEST) test strip Test blood sugar(s) 2 times daily. Dx: Other DM Code E11.42 Insulin: No - albuterol HFA (PROVENTIL HFA, VENTOLIN HFA) 90 mcg/actuation inhaler Inhale 2 Puffs as instructed every 4 hours as needed. - Lancets lancets Test blood sugar(s) 2 times daily. Dx: Other DM Code E11.42 Insulin: No - Blood-Glucose Meter Test Blood Sugars 2 times daily Dx E11.42 Insulin: No - flash glucose sensor (FREESTYLE ADRIAN 10 DAY SENSOR) kit 1 Each one time a week. Check blood sugar twice a day - flash glucose scanning reader (FREESTYLE ADRIAN 10 DAY READER) 1 Device twice daily. Check blood sugar twice a day Problem List As Of Date 05/30/2024 Noted Resolved Mixed hyperlipidemia [E78.2] 09/13/2012 Depression with anxiety [F41.8] Neck pain [M54.2] 10/04/2013 Carpal tunnel syndrome of right wrist [G56.01] 10/27/2013 DDD (degenerative disc disease), cervical [M50.* CAD (coronary artery disease), [place] coronary *05/14/2014 Ischemic cardiomyopathy [I25.5] 05/25/2014 Presence of drug coated stent in LAD coronary a*05/25/2014 Combined senile cataract [H25.819] 10/12/2014 06/10/2017 Vitreous floater (more content not included)... Normal [facility] [facility] MR/BMS.BVJayy 05-26-2024 MR/BMS.BVS [facility] Vascular Surgery [address] [place] [address] [address] [place] [address] OFFICE VISIT Date of Service: 05/26/24 MR#: [id number] Acct: [id number] Name: VICTOR HUGO SHETH Rep #: [id number] : 1950 Provider: MARCIA Roper Age/Sex: 74/M Location: BMS.BVS Status: Signed with Addenda ADDENDUM by MARCIA Roper on 06/14/24 at 1300 Intake Chief Complaint: establish care Allergies No Known Allergies Allergy (Verified 05/26/24 11:25) Medications ???Medication ???Instructions ???Recorded ???Confirmed ???Type albuterol sulfate 2.5 mg/3 mL 2.5 mg inhalation Q4H PRN PRN Sob 05/10/14 04/20/24 History (0.083 %) solution for nebulization /Or Wheezing albuterol sulfate 90 mcg/actuation 2 puff inhalation Q4H PRN PRN So b 05/10/14 04/20/24 History aerosol inhaler (Ventolin HFA) /Or Wheezing metformin 500 mg tablet,extended 1,000 mg PO BID 05/10/14 04/20/24 History release 24 hr atorvastatin 80 mg tablet 80 mg PO QHS 05/26/24 05/26/24 His tory clopidogrel 75 mg tablet 75 mg PO QDAY 05/26/24 05/26/24 Hi story empagliflozin 25 mg tablet 25 mg PO QAM 05/26/24 05/26/24 His tory (Jardiance) glimepiride 4 mg tablet 4 mg PO BID 05/26/24 05/26/24 Hist ory lisinopril 10 mg tablet 10 mg PO QDAY 05/26/24 05/26/24 Hi story metoprolol succinate 25 mg 25 mg PO QDAY 05/26/24 05/26/24 Hi story tablet,extended release 24 hr sitagliptin phosphate 100 mg 100 mg PO QDAY 05/26/24 05/26/24 H istory tablet (Januvia) Assessment and Plan Assessment and Plan Orders: Orders Lower Ext Art Exam w/ Exercise 06/12/24 I73.9 - Peripheral vascular disease, unspecified Lumbar Spine 2 or 3 Views 05/26/24 I73.9 - Peripheral vascular disease, unspecified, M79.606 - Pain in leg, unspecified Plan LEAS revealed normal ABIs and waveforms bilaterally with normal response to exercise bilaterally as well. No evidence of PAD which would be contributing to his lower extremity claudication symptoms. I discussed these results with patient via phone. I advise he complete the lumbar XR as ordered and then anticipate referral to ortho spine for further evaluation of neurogenic claudication. He is agreeable to plan. 06/14/24 1300 Date Claudia Castro cc: Dr. Jorden Hartmann MD; Dr. Guru Antony MD * Signed Intake Vital Signs 04/20/24 15:44 05/26/24 11:23 Height 5 ft 7 in Weight: 226 lb BP 128/87 H Blood Pressure Location Lt brachial Position Sitting Respiration 16 Pulse 106 H Pulse Source Monitor Temp 97.5 F L Temp Source Temporal Pulse Oximetry (%) 93 Oxygen Delivery Method room air Intake Visit Reasons: Claudication Chief Complaint: establish care Is patient in pain?: Yes Allergies No Known Allergies Allergy (Verified 05/26/24 11:25) Medications ???Medication ???Instructions ???Recorded ???Confirmed ???Type albuterol sulfate 2.5 mg/3 mL 2.5 mg inhalation Q4H PRN PRN Sob 05/10/14 04/20/24 History (0.083 %) solution for nebulization /Or Wheezing albuterol sulfate 90 mcg/actuation 2 puff inhalation Q4H PRN PRN So b 05/10/14 04/20/24 History aerosol inhaler (Ventolin HFA) /Or Wheezing metformin 500 mg tablet,extended 1,000 mg PO BID 05/10/14 04/20/24 History release 24 hr atorvastatin 80 mg tablet 80 mg PO QHS 05/26/24 05/26/24 His tory clopidogrel 75 mg tablet 75 mg PO QDAY 05/26/24 05/26/24 Hi story empagliflozin 25 mg tablet 25 mg PO QAM 05/26/24 05/26/24 His tory (Jardiance) glimepiride 4 mg tablet 4 mg PO BID 05/26/24 05/26/24 Hist ory lisinopril 10 mg tablet 10 mg PO QDAY 05/26/24 05/26/24 Hi story metoprolol succinate 25 mg 25 mg PO QDAY 05/26/24 05/26/24 Hi story tablet,extended release 24 hr sitagliptin phosphate 100 mg 100 mg PO QDAY 05/26/24 05/26/24 H istory tablet (Januvia) Have you fallen in the past year?: Yes PFSH Medical History Pain Family history of prostate problems Heart failure High blood pressure High cholesterol Neuropathy Cancer Carpal tunnel syndrome Family History (Updated 05/26/24 @ 11:23 by Danika Tapia) Other Cancer Diabetes Heart disease Hypertension Social History (Updated 05/26/24 @ 11:22 by Danika Tapia) Smoking Status: Light Smoker (<10/day) Tobacco: How many years used: 50 HPI HPI HPI: VICTOR HUGO SHETH, is a 74 M who presents to the office today for evaluation of bilateral lower extremity claudication. He reports that 6-8 months ago he started to have shooting, burning pain in to his bilateral posterior thighs with walking distances greater than a couple hundred feet; if he pushes through for a while he will t (more content not included)... [facility] 05-25-2024 CNPN Telephone (HEMLAUREN) VICTOR HUGO SHETH ([id number]) 1950 Date Time Provider Department 05/25/24 VENITA OCHOA During your visit today, we recorded the following information about you: Venita Ochoa LISW 05/25/2024 11:48 AM Signed SOCIAL WORK FOLLOW UP NOTE: [facility] Date of service: May 25, 2024 Victor Hugo Sheth is being seen for a follow up social work visit. Today's visit includes: patient TOPICS ADDRESSED: GUILLAUME spoke to pt this date who reports he in need of a letter for his insurance company stating his ICD-10 diagnosis code. GUILLAUME drafted letter and had physician review and sign. Pt reports he will nut picker letter from GUILLAUME when here for 2:00 radiation this date. Letter ready for pt pick-up and copy sent to internal scanning. No other needs identified. PLAN: Continue follow up as needed F/U APPOINTMENT: PRN Assigned GUILLAUME listed in Care Team tab: Yes GILDARDO Oconnor Allergies As of Date: 05/25/2024 Noted Allergy Reaction RYBELSUS (SEMAGLUTIDE) 04/16/2021 6 - Diarrhea Date Reviewed: 05/24/2024 Reviewed by: Sheyla Garcia, RN - Fully Assessed Reason for Visit: Social Work Services [507] Prescriptions as of 05/25/2024 - atorvastatin (LIPITOR) 80 mg tablet Take 1 tablet by mouth daily at bedtime. - glimepiride (AMARYL) 4 mg tablet Take 1 tablet by mouth two times a day with meals. - clopidogrel (PLAVIX) 75 mg tablet Take 1 tablet by mouth once daily. - empagliflozin (JARDIANCE) 25 mg tablet Take 1 tablet by mouth daily with breakfast. - lisinopril (ZESTRIL) 10 mg tablet Take 1 tablet by mouth once daily. - metFORMIN (GLUCOPHAGE) 1,000 mg tablet Take 1 tablet by mouth two times a day with meals. - metoprolol succinate ER (TOPROL XL) 25 mg 24 hr tablet Take 1 tablet by mouth once daily. - SITagliptin phosphate (JANUVIA) 100 mg tablet Take 1 tablet by mouth once daily. - blood sugar diagnostic (BLOOD GLUCOSE TEST) test strip Test blood sugar(s) 2 times daily. Dx: Other DM Code E11.42 Insulin: No - albuterol HFA (PROVENTIL HFA, VENTOLIN HFA) 90 mcg/actuation inhaler Inhale 2 Puffs as instructed every 4 hours as needed. - Lancets lancets Test blood sugar(s) 2 times daily. Dx: Other DM Code E11.42 Insulin: No - Blood-Glucose Meter Test Blood Sugars 2 times daily Dx E11.42 Insulin: No - flash glucose sensor (FREESTYLE ADRIAN 10 DAY SENSOR) kit 1 Each one time a week. Check blood sugar twice a day - flash glucose scanning reader (FREESTYLE ADRIAN 10 DAY READER) 1 Device twice daily. Check blood sugar twice a day Problem List As Of Date 05/25/2024 Noted Resolved Mixed hyperlipidemia [E78.2] 09/13/2012 Depression with anxiety [F41.8] Neck pain [M54.2] 10/04/2013 Carpal tunnel syndrome of right wrist [G56.01] 10/27/2013 DDD (degenerative disc disease), cervical [M50.* CAD (coronary artery disease), [place] coronary *05/14/2014 Ischemic cardiomyopathy [I25.5] 05/25/2014 Presence of drug coated stent in LAD coronary a*05/25/2014 Combined senile cataract [H25.819] 10/12/2014 06/10/2017 Vitreous floaters of both eyes [H43.393] 10/12/2014 Type 2 diabetes mellitus without retinopathy (H*10/12/2014 Tachycardia [R00.0] 10/30/2014 Chronic systolic congestive heart failure (HCC)*03/13/2015 Gastroesophageal reflux disease without esophag*03/13/2015 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] 03/13/2015 Smoker [F17.200] 03/13/2015 Diabetic eye exam (HCC) [Z01.00, E11.9] 05/15/2015 Uncontrolled type 2 diabetes mellitus with hype*07/18/2015 Type 2 diabetes mellitus with diabetic neuropat*11/20/2015 Combined forms of age-related cataract, bilater*06/15/2016 Screening for colon cancer [Z12.11] 12/29/2016 Obesity, Class II, BMI 35-39.9 [E66.812] 05/13/2017 Prostate disorder [N42.9] 11/03/2017 Encounter for Medicare annual wellness exam [Z0*11/17/2017 Combined forms of age-related cataract of both *06/15/2016 Essential hypertension [I10] 09/19/2018 Elevated PSA [R97.20] 01/26/2019 Medication management [Z79.899] 07/24/2019 Iron deficiency anemia [D50.9] 09/26/2019 DDD (degenerative disc disease), lumbar [M51.36*12/07/2019 Arthritis of both knees [M17.0] 12/12/2019 Corneal scar, 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] 07/18/2020 Dry eye syndrome of both eyes [H04.123] 07/18/[address] [Z78.9] 10/22/2021 Advance directive discussed with patient [Z71.8*10/22/2021 Prostate cancer (HCC) [C61] 03/03/2024 Encounter Status:Closed by VENITA OCHOA on 05/25/24 [facility] CNOVon 05-24-2024 CNOV Office Visit (RADTWS ) VICTOR HUGO SHETH ([id number]) 1950 M Date Time Provider Department 05/24/24 2:15 PM HAYLEY GUTIERREZ During your visit today, we recorded the following information about you: Temperature Pulse Blood pressure 97.6 degrees 120/minute 123/80 Hayley Gutierrez MD 05/24/2024 2:37 PM Signed Radiation Therapy - Nursing Note (OTV) PATIENT NAME: Victor Hugo Sheth PATIENT May 24, 2024 [facility] FACILITY/LOCATION: [facility] NOTE TYPE: PROSTATE - MALE PELVIS Subjective Data no complaints Additional Data Do you want to see a Network Engineer? No Status: Patient is male Stress Scale: On a scale of 0 to 10, what number best describes how much distress you have experienced in the past week?(0 being no distress and 10 being extreme distress) 0 Social work notified: Pt denied need to see social service worker at this time. Nursing Assessment Fatigue: none Appetite: good Nutritional Intake: Regular oral intake. Weight Gain/Loss: Not applicable Ambulatory weight history: Last 6 Encounter Wt Readings: Date: Wt: 05/02/2024 108 kg (238 lb 3.2 oz) 03/23/2024 106.1 kg (234 lb) 02/29/2024 102.5 kg (226 lb) 11/23/2023 102.1 kg (225 lb) 09/10/2023 99.3 kg (219 lb) 12/03/2022 101.6 kg (224 lb) Nausea:None Vomiting: None Bowel Function: normal bowel movements Erythema/Hyperpigmentation: none Desquamation:none Rash:none Skin Care: Aquaphor Skin Sensation: Within Normal Limits Focused Assessment PROSTATE - MALE PELVIS: Rectal bleeding: No. Rectal pain: No. Bladder function: no problems. Urinary frequency (D/N): stable/stable. SIGNED by: GARRETT Serrano Daesung, MD 05/24/2024 2:37 PM Signed Radiation Oncology - On Treatment Review (OTR) Note PATIENT NAME: Victor Hugo Sheth PATIENT DIAGNOSIS: Clinical stage IIA, cT1c, prostatic adenocarcinoma with Mabscott score 7 (3+4), grade group 2 and PSA 5.86 ng/mL. COURSE: definitive AREA TREATED: Pelvis/Prostate/SV CURRENT DOSE: 5250 cGy in 21 fx PLANNED DOSE: 7000 cGy in 28 fx SUBJECTIVE: He is doing well without any specific new complaints related to radiation treatment. He denies any problems with urination or bowel movements. EXAM: KPS: 90 General Appearance: Alert and oriented. No acute distress. IMAGING/LAB RESULTS: None Treatment chart checked: Yes Patient treatment site reviewed and verified:Yes CBCTs reviewed and current:Yes Medications started: None ASSESSMENT/PLAN: Clinically stable. Toxicity within expected parameters. Continue radiation treatment as planned. Hayley Gutierrez MD Allergies As of Date: 05/24/2024 Noted Allergy Reaction RYBELSUS (SEMAGLUTIDE) 04/16/2021 6 - Diarrhea Date Reviewed: 05/24/2024 Reviewed by: Sheyla Garcia RN - Fully Assessed Reason for Visit: Radiotherapy On-treatment Visit [1722] Primary Visit Diagnosis:Prostate cancer (HCC) [C61] Prescriptions as of 05/24/2024 - atorvastatin (LIPITOR) 80 mg tablet Take 1 tablet by mouth daily at bedtime. - glimepiride (AMARYL) 4 mg tablet Take 1 tablet by mouth two times a day with meals. - clopidogrel (PLAVIX) 75 mg tablet Take 1 tablet by mouth once daily. - empagliflozin (JARDIANCE) 25 mg tablet Take 1 tablet by mouth daily with breakfast. - lisinopril (ZESTRIL) 10 mg tablet Take 1 tablet by mouth once daily. - metFORMIN (GLUCOPHAGE) 1,000 mg tablet Take 1 tablet by mouth two times a day with meals. - metoprolol succinate ER (TOPROL XL) 25 mg 24 hr tablet Take 1 tablet by mouth once daily. - SITagliptin phosphate (JANUVIA) 100 mg tablet Take 1 tablet by mouth once daily. - blood sugar diagnostic (BLOOD GLUCOSE TEST) test strip Test blood sugar(s) 2 times daily. Dx: Other DM Code E11.42 Insulin: No - albuterol HFA (PROVENTIL HFA, VENTOLIN HFA) 90 mcg/actuation inhaler Inhale 2 Puffs as instructed every 4 hours as needed. - Lancets lancets Test blood sugar(s) 2 times daily. Dx: Other DM Code E11.42 Insulin: No - Blood-Glucose Meter Test Blood Sugars 2 times daily Dx E11.42 Insulin: No - flash glucose sensor (FREESTYLE ADRIAN 10 DAY SENSOR) kit 1 Each one time a week. Check blood sugar twice a day - flash glucose scanning reader (FREESTYLE ADRIAN 10 DAY READER) 1 Device twice daily. Check blood sugar twice a day Problem List As Of Date 05/24/2024 Noted Resolved Mixed hyperlipidemia [E78.2] 09/13/2012 Depression with anxiety [F41.8] Neck pain [M54.2] 10/04/2013 Carpal tunnel syndrome of right wrist [G56.01] 10/27/2013 DDD (degenerative disc disease), cervical [M50.* CAD (coronary artery disease), [place] coronary *05/14/2014 Ischemic cardiomyopathy [I25.5] 05/25/2014 Presence of drug coated stent in LAD coronary a*05/25/2014 Combined senile cataract [H25.819] 10/12/2014 06/10/2017 Vitreous floaters of both eyes [H43.393] 10/12/2014 Type 2 diabetes mellitus with (more content not included)... Normal [facility] CNOVon 05-16-2024 CNOV Office Visit (RADTWS ) VICTOR HUGO SHETH ([id number]) 1950 M Date Time Provider Department 05/16/24 2:15 PM MOO MABRY During your visit today, we recorded the following information about you: Temperature Pulse Respiration Blood pressure 99.9 degrees 121/minute 20/minute 130/84 Moo Mabry MD 05/16/2024 2:32 PM Signed Radiation Oncology - On Treatment Review (OTR) Note PATIENT NAME: Victor Hugo Sheth PATIENT DIAGNOSIS: Clinical stage IIA, cT1c, prostatic adenocarcinoma with Mabscott score 7 (3+4), grade group 2 and PSA 5.86 ng/mL. COURSE: definitive AREA TREATED: Pelvis/Prostate/SV CURRENT DOSE: 3750 cGy in 15 fx PLANNED DOSE: 7000 cGy in 28 fx SUBJECTIVE: He is doing well without any specific new complaints. Denies fatigue. He denies any problems with urination or bowel movements. EXAM: KPS: 90 General Appearance: Alert and oriented. No acute distress. IMAGING/LAB RESULTS: None Treatment chart checked: Yes Patient treatment site reviewed and verified:Yes CBCTs reviewed and current:Yes Medications started: None ASSESSMENT/PLAN: Clinically stable. Toxicity within expected parameters. Continue radiation treatment as planned. Moo Mabry MD for Hayley Gutierrez MD Radiation Therapy - Nursing Note (OTV) PATIENT NAME: Victor Hugo Sheth PATIENT May 16, 2024 [facility] FACILITY/LOCATION: [facility] NURSING NOTE TYPE: PROSTATE - MALE PELVIS Subjective Data I'm doing okay. Additional Data Do you want to see a Network Engineer? No Status: Patient is male Stress Scale: On a scale of 0 to 10, what number best describes how much distress you have experienced in the past week?(0 being no distress and 10 being extreme distress) 7 Social work notified: Pt denied need to see social service worker at this time. Nursing Assessment Fatigue: increased fatigue over baseline but not altering normal activities Appetite: good Nutritional Intake: Regular oral intake. Weight Gain/Loss: Not applicable Ambulatory weight history: Last 6 Encounter Wt Readings: Date: Wt: 05/02/2024 108 kg (238 lb 3.2 oz) 03/23/2024 106.1 kg (234 lb) 02/29/2024 102.5 kg (226 lb) 11/23/2023 102.1 kg (225 lb) 09/10/2023 99.3 kg (219 lb) 12/03/2022 101.6 kg (224 lb) Nausea:None Vomiting: None Bowel Function: normal bowel movements Erythema/Hyperpigmentation: none Desquamation:none Rash:none Skin Care: Aquaphor Skin Sensation: Within Normal Limits Focused Assessment PROSTATE - MALE PELVIS: Rectal bleeding: No. Rectal pain: No. Bladder function: no problems. Urinary frequency (D/N): q3h/q3h. SIGNED by: Shira Santos RN Allergies As of Date: 05/16/2024 Noted Allergy Reaction RYBELSUS (SEMAGLUTIDE) 04/16/2021 6 - Diarrhea Date Reviewed: 05/16/2024 Reviewed by: Shira Santos RN - Fully Assessed Reason for Visit: Radiotherapy On-treatment Visit [1722] Fx # 15 [Other] Primary Visit Diagnosis:Prostate cancer (HCC) [C61] Prescriptions as of 05/16/2024 - atorvastatin (LIPITOR) 80 mg tablet Take 1 tablet by mouth daily at bedtime. - glimepiride (AMARYL) 4 mg tablet Take 1 tablet by mouth two times a day with meals. - clopidogrel (PLAVIX) 75 mg tablet Take 1 tablet by mouth once daily. - empagliflozin (JARDIANCE) 25 mg tablet Take 1 tablet by mouth daily with breakfast. - lisinopril (ZESTRIL) 10 mg tablet Take 1 tablet by mouth once daily. - metFORMIN (GLUCOPHAGE) 1,000 mg tablet Take 1 tablet by mouth two times a day with meals. - metoprolol succinate ER (TOPROL XL) 25 mg 24 hr tablet Take 1 tablet by mouth once daily. - SITagliptin phosphate (JANUVIA) 100 mg tablet Take 1 tablet by mouth once daily. - blood sugar diagnostic (BLOOD GLUCOSE TEST) test strip Test blood sugar(s) 2 times daily. Dx: Other DM Code E11.42 Insulin: No - albuterol HFA (PROVENTIL HFA, VENTOLIN HFA) 90 mcg/actuation inhaler Inhale 2 Puffs as instructed every 4 hours as needed. - Lancets lancets Test blood sugar(s) 2 times daily. Dx: Other DM Code E11.42 Insulin: No - Blood-Glucose Meter Test Blood Sugars 2 times daily Dx E11.42 Insulin: No - flash glucose sensor (FREESTYLE ADRIAN 10 DAY SENSOR) kit 1 Each one time a week. Check blood sugar twice a day - flash glucose scanning reader (FREESTYLE ADRIAN 10 DAY READER) 1 Device twice daily. Check blood sugar twice a day Problem List As Of Date 05/16/2024 Noted Resolved Mixed hyperlipidemia [E78.2] 09/13/2012 Depression with anxiety [F41.8] Neck pain [M54.2] 10/04/2013 Carpal tunnel syndrome of right wrist [G56.01] 10/27/2013 DDD (degenerative disc disease), cervical [M50.* CAD (coronary artery disease), [place] coronary *05/14/2014 Ischemic cardiomyopathy [I25.5] 05/25/2014 Presence of drug coated stent in LAD coronary a*05/25/2014 Combined senile cataract [H25.819] 10/12/2014 06/10/2017 Vitreous floa (more content not included)... Normal [facility] CBC W Auto Differential pane l (Bld)on 05-15-2024 Basophils (Bld) [#/Vol] 0.03 10*3/uL Normal <0.11 [facility] Comment on above: Order Comment: Speci men Type: BLOOD SPECIMEN Ordering Facility: [facility] Address: [address] [place] [address] Performed By: #### 5 7021-8 #### [facility] CLIA [id number] [address] [place] [address] [place] Basophils/100 WBC (Bld) 0.4 % Normal [facility] Comment on above: Order Comment: Speci men Type: BLOOD SPECIMEN Ordering Facility: [facility] Address: [address] [place] [address] Performed By: #### 5 7021-8 #### [facility] CLIA [id number] [address] [place] [address] [place] Differential cell count method Nom (Bld) Auto Normal [facility] Comment on above: Order Comment: Speci men Type: BLOOD SPECIMEN Ordering Facility: [facility] Address: [address] [place] [address] Performed By: #### 5 7021-8 #### [facility] CLIA [id number] [address] [place] [address] [place] Eosinophils (Bld) [#/Vol] 0.46 10*3/uL High <0.46 [facility] Comment on above: Order Comment: Speci men Type: BLOOD SPECIMEN Ordering Facility: [facility] Address: [address] [place] [address] Performed By: #### 5 7021-8 #### [facility] CLIA [id number] [address] [place] [address] [place] Eosinophils/100 WBC (Bld) 5.9 % Normal [facility] Comment on above: Order Comment: Speci men Type: BLOOD SPECIMEN Ordering Facility: [facility] Address: [address] [place] [address] Performed By: #### 5 7021-8 #### [facility] [id number] [address] [place] [address] [place] Erythrocyte distribution width (RBC) [Ratio] 15.7 % High 11.5-15.0 [facility] Comment on above: Order Comment: Speci men Type: BLOOD SPECIMEN Ordering Facility: [facility] Address: [address] [place] [address] Performed By: #### 5 7021-8 #### [facility] [id number] [address] [place] [address] [place] Hematocrit (Bld) [Volume fraction] 41.8 % Normal 39.0-51.0 [facility] Comment on above: Order Comment: Speci men Type: BLOOD SPECIMEN Ordering Facility: [facility] Address: [address] [place] [address] Performed By: #### 5 7021-8 #### [facility] [id number] [address] [place] [address] [place] Hemoglobin (Bld) [Mass/Vol] 13.1 g/dL Normal 13.0-17.0 [facility] Comment on above: Order Comment: Speci men Type: BLOOD SPECIMEN Ordering Facility: [facility] Address: [address] [place] [address] Performed By: #### 5 7021-8 #### [facility] [id number] [address] [place] [address] [place] Immature granulocytes (Bld) [#/Vol] 0.03 10*3/uL Normal <0.10 [facility] Comment on above: Order Comment: Speci men Type: BLOOD SPECIMEN Ordering Facility: [facility] Address: [address] [place] [address] Performed By: #### 5 7021-8 #### [facility] [id number] [address] [place] [address] [place] Immature granulocytes/100 WBC (Bld) 0.4 % Normal [facility] Comment on above: Order Comment: Speci men Type: BLOOD SPECIMEN Ordering Facility: [facility] Address: [address] [place] [address] Performed By: #### 5 7021-8 #### [facility] CLIA [id number] [address] [place] [address] [place] Lymphocytes (Bld) [#/Vol] 0.79 10*3/uL Low 1.00-4.00 [facility] Comment on above: Order Comment: Speci men Type: BLOOD SPECIMEN Ordering Facility: [facility] Address: [address] [place] [address] Performed By: #### 5 7021-8 #### [facility] CLIA [id number] [address] [place] [address] [place] Lymphocytes/100 WBC (Bld) 10.2 % Normal [facility] Comment on above: Order Comment: Speci men Type: BLOOD SPECIMEN Ordering Facility: [facility] Address: [address] [place] [address] Performed By: #### 5 7021-8 #### [facility] CLIA [id number] [address] [place] [address] [place] MCH (RBC) [Entitic mass] 27.1 pg Normal 26.0-34.0 [facility] Comment on above: Order Comment: Speci men Type: BLOOD SPECIMEN Ordering Facility: [facility] Address: [address] [place] [address] Performed By: #### 5 7021-8 #### [facility] CLIA [id number] [address] [place] [address] [place] MCHC (RBC) [Mass/Vol] 31.3 g/dL Normal 30.5-36.0 [facility] Comment on above: Order Comment: Speci men Type: BLOOD SPECIMEN Ordering Facility: [facility] Address: [address] [place] [address] Performed By: #### 5 7021-8 #### [facility] CLIA [id number] [address] [place] [address] [place] MCV (RBC) [Entitic vol] 86.4 fL Normal 80.0-100.0 [facility] Comment on above: Order Comment: Speci men Type: BLOOD SPECIMEN Ordering Facility: [facility] Address: [facility] [facility] [place] [id number] Performed By: #### 5 7021-8 #### [facility] CLIA [id number] [address] [place] [address] [place] Monocytes (Bld) [#/Vol] 0.73 10*3/uL Normal <0.87 [facility] Comment on above: Order Comment: Speci men Type: BLOOD SPECIMEN Ordering Facility: [facility] Address: [address] [place] [address] Performed By: #### 5 7021-8 #### [facility] CLIA [id number] [address] [place] [address] [place] Monocytes/100 WBC (Bld) 9.4 % Normal [facility] Comment on above: Order Comment: Speci men Type: BLOOD SPECIMEN Ordering Facility: [facility] Address: [address] [place] [address] Performed By: #### 5 7021-8 #### [facility] CLIA [id number] [address] [place] [address] [place] Neutrophils (Bld) [#/Vol] 5.73 10*3/uL Normal 1.45-7.50 [facility] Comment on above: Order Comment: Speci men Type: BLOOD SPECIMEN Ordering Facility: [facility] Address: [address] [place] [address] Performed By: #### 5 7021-8 #### [facility] CLIA [id number] [address] [place], [place] [address] [place] Neutrophils/100 WBC (Bld) 73.7 % Normal [facility] Comment on above: Order Comment: Speci men Type: BLOOD SPECIMEN Ordering Facility: [facility] Address: [address] [place] [address] Performed By: #### 5 7021-8 #### [facility] CLIA [id number] [address] [place] [address] [place] Nucleated RBC (Bld) [#/Vol] 10*3/uL Normal <0.01 [facility] Comment on above: Order Comment: Speci men Type: BLOOD SPECIMEN Ordering Facility: [facility] Address: [address] [place] [address] Performed By: #### 5 7021-8 #### [facility] CLIA [id number] [address] [place] [address] [place] Nucleated RBC/100 WBC (Bld) [Ratio] 0.0 /100 WBC Normal [facility] Comment on above: Order Comment: Speci men Type: BLOOD SPECIMEN Ordering Facility: [facility] Address: [address] [place] [address] Performed By: #### 5 7021-8 #### [facility] CLIA [id number] [address] [place] [address] [place] Platelet mean volume (Bld) [Entitic vol] 8.5 fL Low 9.0-12.7 [facility] Comment on above: Order Comment: Speci men Type: BLOOD SPECIMEN Ordering Facility: [facility] Address: [address] [place] [address] Performed By: #### 5 7021-8 #### [facility] CLIA [id number] [address] [place] [address] [place] Platelets (Bld) [#/Vol] 312 10*3/uL Normal 150-400 [facility] Comment on above: Order Comment: Speci men Type: BLOOD SPECIMEN Ordering Facility: [facility] Address: [address] [place] [address] Performed By: #### 5 7021-8 #### [facility] CLIA [id number] [address] [place] [address] [place] RBC (Bld) [#/Vol] 4.84 10*6/uL Normal 4.20-6.00 [facility] Comment on above: Order Comment: Speci men Type: BLOOD SPECIMEN Ordering Facility: [facility] Address: [address] [place], [place] [address] Performed By: #### 5 7021-8 #### [facility] CLIA [id number] [address] [place] [address] [place] WBC (Bld) [#/Vol] 7.77 10*3/uL Normal 3.70-11.00 [facility] Comment on above: Order Comment: Speci men Type: BLOOD SPECIMEN Ordering Facility: [facility] Address: [address] [place], [place] [address] Performed By: #### 5 7021-8 #### [facility] [id number] [address] [place] [address] [place] Iron and Iron binding capaci ty panelon 05-15-2024 Iron [Mass/Vol] 62 ug/dL Normal 41-186 [facility] Comment on above: Order Comment: Speci men Type: BLOOD SPECIMEN Ordering Facility: [facility] Address: [address] [place] [address] Performed By: #### 5 7021-8 #### [facility] CLIA [id number] [address] [place] [address] [place] Iron binding capacity [Mass/Vol] 435 ug/dL High 232-386 [facility] Comment on above: Order Comment: Speci men Type: BLOOD SPECIMEN Ordering Facility: [facility] Address: [address] [place] [address] Performed By: #### 5 7021-8 #### [facility] CLIA [id number] [address] [place] [address] [place] Iron/TIBC [Molar ratio] 14.3 % Low 15.0-57.0 [facility] Comment on above: Order Comment: Speci men Type: BLOOD SPECIMEN Ordering Facility: [facility] Address: [facility] [place] [address] Performed By: #### 5 7021-8 #### [facility] CLIA [id number] [address] [place] [address] [place] Plastic Surgery Visit Report on 05-11-2024 Plastic Surgery Visit Report [facility] Plastic Reconstructive Surgery [address], [address] [place] [address] OFFICE VISIT Date of Service: 05/11/24 MR#: [id number] Acct: [id number] Name: VICTOR HUGO SHETH Rep #: [id number] : 1950 Provider: Dr. Guru Antony MD Age/Sex: 74/M Location: [facility] [place] Status: Signed Intake Vital Signs 3 04/20/24 15:44 05/11/24 15:29 Height 5 ft 7 in Weight: 235 lb BMI 36.8 BP 147/85 H 116/74 Blood Pressure Location Lt brachial Lt brachial Position Sitting Sitting Respiration 18 18 Pulse 114 H 103 H Pulse Source Monitor Monitor Temp 97.9 F Temp Source Oral Pulse Oximetry (%) 91 92 Oxygen Delivery Method room air room air Intake Visit Reasons: 3 W FU Chief Complaint: f/u dog bite,carpal tunnel Is patient in pain?: Yes Allergies No Known Allergies Allergy (Verified 04/20/24 15:34) Have you fallen in the past year?: No PFSH Medical History Pain Family history of prostate problems Heart failure High blood pressure High cholesterol Neuropathy Cancer Carpal tunnel syndrome Social History Smoking Status: Current every day smoker HPI 3 W FU Details: HPI from 20 Apr 2024: Victor Hugo Dorman is a delightful 74-year-old male with a complicated past medical history including type 2 diabetes and congestive heart failure who presents with right hand numbness and tingling that has gotten worse over the past 6 months after he had a volar hand dog bite from a known dog. At the time of the injury he did not seek medical attention. The laceration was on the radial side of his palm between the index and long finger metacarpal. He reports that it healed up its own but that he has had numbness and tingling throughout the hand since this time, worse on the index and long fingers. He is also noticed a divot on his right thumb thenar musculature. Patient reports positive nighttime pain and tingling for the numbness and tingling. He has never had any hand surgery, or any other trauma. He has had several tetanus shots in the past and is up-to-date reportedly. He continues to smoke (5 cigarettes/day) He is right-handed Of note he is also reporting bilateral lower extremity tingling and burning sensation with excessive walking/physical exertion. He noticed this for the past couple years. CURRENT ENCOUNTER, 11 May 2024: Patient here to further discuss his right hand problems. He decided to not get the EMG/nerve conduction study as he reports that he is had one for years ago. We talked about carpal tunnel syndrome again today, as well as sequelae from his dog bite injury from 6 months ago. Patient most concerned about his lower extremity pain today. He reports that the pain only comes when he is walking and it is in the thighs. It is not an electrical pain necessarily, it is more of a muscle pain. He would like this worked up first before he has any further discussion or workup regarding his hands. Exam Details Right Upper Extremity Inspection: Well-healed radial sided volar palm laceration between index and long finger metacarpal. No signs of infection. No palpable foreign body or pain over the metacarpals. Negative Tinel sign over the area. No overlying skin changes. He has severe thenar atrophy. Overall intrinsic atrophy as well Palpation: No tenderness to palpation. No hyperpathia or allodynia. Provocative tests * Positive Phalen's * Positive Durkan's * Negative Tinel's at the wrist, positive Tinel's over the cubital tunnel * Elbow flexion test was negative Motor: Able to bend and extend all MP, PIP, and DIP joints. Unable to cross fingers. * 2/5 APB * 3/5 first dorsal interossei Sensory: Intact to light touch on the radial and ulnar borders, and 2-point discrimination is 4 mm on the radial and ulnar borders of all fingers on both hands except for the ulnar border of the index finger as he has no discernible 2-point discrimination in this location. Vascular: Finger tips are warm and well perfused with <2 second capillary refill. Lower extremity: Dry skin on the feet bilaterally without any palpable pulses. His lower extremities are warm. No wounds. He has sensation to the bilateral lower extremities/feet. Coding Level of Care Code Off vis,est,level 4 Diagnoses Dog bite of hand S61.459A; W54.0XXA Carpal tunnel syndrome G56.00 Lower extremity pain M79.606 Assessment and Plan (No Qualifiers) Assessment and Plan (1) Dog bite of hand: Status: Acute Comment: Right volar/radial palm, between index and long finger metacarpals Plan: Discussed delayed nerve pain/numbness from trauma and potential surgical interventions, but nerve pain and hand problem (more content not included)... Normal [facility] CNOVon 05-09-2024 CNOV Office Visit (RADTWS ) VICTOR HUGO SHETH ([id number]) 1950 M Date Time Provider Department 05/09/24 2:15 PM HAYLEY GUTIERREZ RADTWS During your visit today, we recorded the following information about you: Temperature Pulse Blood pressure 99 degrees 110/minute 128/81 Hayley Gutierrez MD 05/09/2024 2:43 PM Signed Radiation Oncology - On Treatment Review (OTR) Note PATIENT NAME: Victor Hugo Sheth PATIENT DIAGNOSIS: Clinical stage IIA, cT1c, prostatic adenocarcinoma with Mabscott score 7 (3+4), grade group 2 and PSA 5.86 ng/mL. COURSE: definitive AREA TREATED: Pelvis/Prostate/SV CURRENT DOSE: 2500 cGy in 10 fx PLANNED DOSE: 7000 cGy in 28 fx SUBJECTIVE: He is doing well without any specific new complaints. He denies any problems with urination or bowel movements. EXAM: KPS: 90 General Appearance: Alert and oriented. No acute distress. IMAGING/LAB RESULTS: None Treatment chart checked: Yes Patient treatment site reviewed and verified:Yes CBCTs reviewed and current:Yes Medications started: None ASSESSMENT/PLAN: Clinically stable. Toxicity within expected parameters. Continue radiation treatment as planned. MD Jose Rowan Janice, RN 05/09/2024 2:43 PM Signed Radiation Therapy - Nursing Note (OTV) PATIENT NAME: Victor Hugo Sheth PATIENT May 09, 2024 [facility] FACILITY/LOCATION: [facility] NOTE TYPE: PROSTATE - MALE PELVIS Subjective Data no complaints Additional Data Do you want to see a Network Engineer? No Status: Patient is male Stress Scale: On a scale of 0 to 10, what number best describes how much distress you have experienced in the past week?(0 being no distress and 10 being extreme distress) 8 Social work notified: Pt denied need to see social service worker at this time. Nursing Assessment Fatigue: increased fatigue over baseline but not altering normal activities Appetite: good Nutritional Intake: Regular oral intake. Weight Gain/Loss: Not applicable Ambulatory weight history: Last 6 Encounter Wt Readings: Date: Wt: 05/02/2024 108 kg (238 lb 3.2 oz) 03/23/2024 106.1 kg (234 lb) 02/29/2024 102.5 kg (226 lb) 11/23/2023 102.1 kg (225 lb) 09/10/2023 99.3 kg (219 lb) 12/03/2022 101.6 kg (224 lb) Nausea:None Vomiting: None Bowel Function: normal bowel movements Erythema/Hyperpigmentation: none Desquamation:none Rash:none Skin Care: Aquaphor Skin Sensation: Within Normal Limits Focused Assessment PROSTATE - MALE PELVIS: Rectal bleeding: No. Rectal pain: No. Bladder function: no problems. Urinary frequency (D/N): stable/stable. SIGNED by: Sheyla Garcia RN Allergies As of Date: 05/09/2024 Noted Allergy Reaction RYBELSUS (SEMAGLUTIDE) 04/16/2021 6 - Diarrhea Date Reviewed: 05/09/2024 Reviewed by: Sheyla Garcia RN - Fully Assessed Reason for Visit: Radiotherapy On-treatment Visit [1722] Primary Visit Diagnosis:Prostate cancer (HCC) [C61] Prescriptions as of 05/09/2024 - atorvastatin (LIPITOR) 80 mg tablet Take 1 tablet by mouth daily at bedtime. - glimepiride (AMARYL) 4 mg tablet Take 1 tablet by mouth two times a day with meals. - clopidogrel (PLAVIX) 75 mg tablet Take 1 tablet by mouth once daily. - empagliflozin (JARDIANCE) 25 mg tablet Take 1 tablet by mouth daily with breakfast. - lisinopril (ZESTRIL) 10 mg tablet Take 1 tablet by mouth once daily. - metFORMIN (GLUCOPHAGE) 1,000 mg tablet Take 1 tablet by mouth two times a day with meals. - metoprolol succinate ER (TOPROL XL) 25 mg 24 hr tablet Take 1 tablet by mouth once daily. - SITagliptin phosphate (JANUVIA) 100 mg tablet Take 1 tablet by mouth once daily. - blood sugar diagnostic (BLOOD GLUCOSE TEST) test strip Test blood sugar(s) 2 times daily. Dx: Other DM Code E11.42 Insulin: No - albuterol HFA (PROVENTIL HFA, VENTOLIN HFA) 90 mcg/actuation inhaler Inhale 2 Puffs as instructed every 4 hours as needed. - Lancets lancets Test blood sugar(s) 2 times daily. Dx: Other DM Code E11.42 Insulin: No - Blood-Glucose Meter Test Blood Sugars 2 times daily Dx E11.42 Insulin: No - flash glucose sensor (FREESTYLE ADRIAN 10 DAY SENSOR) kit 1 Each one time a week. Check blood sugar twice a day - flash glucose scanning reader (FREESTYLE ADRIAN 10 DAY READER) 1 Device twice daily. 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 Normal [facility] Hand Min 3 Viewson [facility] Min 3 [facility] [address] [place] [address] Hand Min 3 Views MR#: [id number] Acct: [id number] Name: VICTOR HUGO SHETH Rep #: [id number] : 1950 M 74 From: Guru Mello MD PCP: Dr. Jorden Hartmann MD Status: REG CLI Study: Hand Min 3 Views Date of Exam: 05/04/24 Exam# [id number] Ordering Dr: Guru Antony MD PROCEDURE: HAND MIN 3 VIEWS REASON FOR EXAM: PAIN TECHNIQUE: 3 view(s) of the right hand COMPARISON: None. FINDINGS: No fracture or dislocation. The joint spaces appear within limits. No radiopaque foreign body identified. 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 Soft tissues are unremarkable. RAD/Hand Min 3 Views IMPRESSION: No fracture or dislocation. 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 Reading Location: [id number] CC: Dr. Jorden Hartmann MD; Dr. Guru Antony MD Biological Sciences Professor: Signed Normal [facility] CNOVon 05-02-2024 CNOV Office Visit (RADTWS ) VICTOR HUGO SHETH ([id number]) 1950 Date Time Provider Department 05/02/24 2:15 PM HAYLEY GUTIERREZ During your visit today, we recorded the following information about you: Temperature Pulse Respiration Blood pressure 99.2 degrees 107/minute 22/minute 135/83 Weight 108 kg Hayley Gutierrez MD 05/02/2024 2:50 PM Signed Radiation Oncology - On Treatment Review (OTR) Note PATIENT NAME: Victor Hugo Sheth PATIENT DIAGNOSIS: Clinical stage IIA, cT1c, prostatic adenocarcinoma with Eugene score 7 (3+4), grade group 2 and PSA 5.86 ng/mL. COURSE: definitive AREA TREATED: Pelvis/Prostate/SV CURRENT DOSE: 1250 cGy in 5 fx PLANNED DOSE: 7000 cGy in 28 fx SUBJECTIVE: He has mild fatigue. He denies any problems with urination or bowel movements. EXAM: KPS: 90 General Appearance: Alert and oriented. No acute distress. IMAGING/LAB RESULTS: None Treatment chart checked: Yes Patient treatment site reviewed and verified:Yes CBCTs reviewed and current:Yes Medications started: None ASSESSMENT/PLAN: Clinically stable. Toxicity within expected parameters. Continue radiation treatment as planned. MD Richard Rowan Kayla, RN 05/02/2024 2:50 PM Signed Radiation Therapy - Nursing Note (OTV) PATIENT NAME: Victor Hugo Sheth PATIENT May 02, 2024 [facility] FACILITY/LOCATION: [place] NUR[facility] NOTE TYPE: PROSTATE - MALE PELVIS Subjective Data I feel like I'm doing better. Additional Data Do you want to see a Network Engineer? No Status: Patient is male Stress Scale: On a scale of 0 to 10, what number best describes how much distress you have experienced in the past week?(0 being no distress and 10 being extreme distress) 10 Social work notified: Pt denied need to see social service worker at this time. Nursing Assessment Fatigue: increased fatigue over baseline but not altering normal activities Appetite: good Nutritional Intake: Regular oral intake. Weight Gain/Loss: Yes Ambulatory weight history: Last 6 Encounter Wt Readings: Date: Wt: 03/23/2024 106.1 kg (234 lb) 02/29/2024 102.5 kg (226 lb) 11/23/2023 102.1 kg (225 lb) 09/10/2023 99.3 kg (219 lb) 12/03/2022 101.6 kg (224 lb) 11/04/2022 102.5 kg (226 lb) Nausea:None Vomiting: None Bowel Function: normal bowel movements Erythema/Hyperpigmentation: none Desquamation:none Rash:none Skin Care: None Skin Sensation: Within Normal Limits Focused Assessment PROSTATE - MALE PELVIS: Rectal bleeding: No. Rectal pain: No. Bladder function: no problems. Urinary frequency (D/N): 3/3. Q2-3 hrs. I feel like at night time it has improved. I'm going about every 3 hours now. SIGNED by: Shira Santos RN Allergies As of Date: 05/02/2024 Noted Allergy Reaction RYBELSUS (SEMAGLUTIDE) 04/16/2021 6 - Diarrhea Date Reviewed: 05/02/2024 Reviewed by: Shira Santos RN - Fully Assessed Reason for Visit: Radiotherapy On-treatment Visit [1722] Primary Visit Diagnosis:Prostate cancer (HCC) [C61] Prescriptions as of 05/02/2024 - atorvastatin (LIPITOR) 80 mg tablet Take 1 tablet by mouth daily at bedtime. - glimepiride (AMARYL) 4 mg tablet Take 1 tablet by mouth two times a day with meals. - clopidogrel (PLAVIX) 75 mg tablet Take 1 tablet by mouth once daily. - empagliflozin (JARDIANCE) 25 mg tablet Take 1 tablet by mouth daily with breakfast. - lisinopril (ZESTRIL) 10 mg tablet Take 1 tablet by mouth once daily. - metFORMIN (GLUCOPHAGE) 1,000 mg tablet Take 1 tablet by mouth two times a day with meals. - metoprolol succinate ER (TOPROL XL) 25 mg 24 hr tablet Take 1 tablet by mouth once daily. - SITagliptin phosphate (JANUVIA) 100 mg tablet Take 1 tablet by mouth once daily. - blood sugar diagnostic (BLOOD GLUCOSE TEST) test strip Test blood sugar(s) 2 times daily. Dx: Other DM Code E11.42 Insulin: No - albuterol HFA (PROVENTIL HFA, VENTOLIN HFA) 90 mcg/actuation inhaler Inhale 2 Puffs as instructed every 4 hours as needed. - Lancets lancets Test blood sugar(s) 2 times daily. Dx: Other DM Code E11.42 Insulin: No - Blood-Glucose Meter Test Blood Sugars 2 times daily Dx E11.42 Insulin: No - flash glucose sensor (FREESTYLE ADRIAN 10 DAY SENSOR) kit 1 Each one time a week. Check blood sugar twice a day - flash glucose scanning reader (FREESTYLE ADRIAN 10 DAY READER) 1 Device twice daily. Check blood sugar twice a day Problem List As Of Date 05/02/2024 Noted Resolved Mixed hyperlipidemia [E78.2] 09/13/2012 Depression with anxiety [F41.8] Neck pain [M54.2] 10/04/2013 Carpal tunnel syndrome of right wrist [G56.01] 10/27/2013 DDD (degenerative disc disease), cervical [M50.* CAD (coronary artery disease), [place] coronary *05/14/2014 Ischemic cardiomyopathy [I25.5] 05/25/2014 Presence of drug coated stent in LAD coronary a*05/25/2014 Combined senile ca (more content not included)... Normal [facility] Plastic Surgery Visit Report on 04-20-2024 Plastic Surgery Visit Report [facility] Plastic Reconstructive Surgery [address] [place] [id number] OFFICE VISIT Date of Service: 04/20/24 MR#: [id number] Acct: [id number] Name: VICTOR HUGO SHETH Rep #: [id number] : 1950 Provider: Dr. Guru Antony MD Age/Sex: 74/M Location: [facility] Status: Signed Intake Vital Signs 3 04/20/24 15:44 Height 5 ft 7 in Weight: 235 lb BMI 36.8 BP 147/85 H Blood Pressure Location Lt brachial Position Sitting Respiration 18 Pulse 114 H Pulse Source Monitor Temp 97.9 F Temp Source Oral Pulse Oximetry (%) 91 Oxygen Delivery Method room air Intake Visit Reasons: R HAND NUMBNESS Chief Complaint: Shortness of breath Allergies No Known Allergies Allergy (Verified 04/20/24 15:34) Medications 3 ???Medication ???Instructions ???Recorded ???Confirmed ???Type albuterol sulfate 2.5 mg/3 mL 2.5 mg inhalation Q4H PRN PRN Sob 05/10/14 04/20/24 History (0.083 %) solution for nebulization /Or Wheezing albuterol sulfate 90 mcg/actuation 2 puff inhalation Q4H PRN PRN So b 05/10/14 04/20/24 History aerosol inhaler (Ventolin HFA) /Or Wheezing metformin 500 mg tablet,extended 1,000 mg PO BID 05/10/14 04/20/24 History release 24 hr prednisone 5 mg tablet See Taper PO DAILY 05/10/14 History Have you fallen in the past year?: Yes [facility] Medical History (Updated 04/21/24 @ 08:[address] Guru Antony MD) Pain Family history of prostate problems Heart failure High blood pressure High cholesterol Neuropathy Cancer Carpal tunnel syndrome Social History Smoking Status: Current every day smoker HPI R HAND NUMBNESS Details: Victor Hugo Dorman is a delightful 74-year-old male with a complicated past medical history including type 2 diabetes and congestive heart failure who presents with right hand numbness and tingling that has gotten worse over the past 6 months after he had a volar hand dog bite from a known dog. At the time of the injury he did not seek medical attention. The laceration was on the radial side of his palm between the index and long finger metacarpal. He reports that it healed up its own but that he has had numbness and tingling throughout the hand since this time, worse on the index and long fingers. He is also noticed a divot on his right thumb thenar musculature. Patient reports positive nighttime pain and tingling for the numbness and tingling. He has never had any hand surgery, or any other trauma. He has had several tetanus shots in the past and is up-to-date reportedly. He continues to smoke (5 cigarettes/day) He is right-handed Of note he is also reporting bilateral lower extremity tingling and burning sensation with excessive walking/physical exertion. He noticed this for the past couple years. ROS General General: Yes fatigue; No good health, fever(s) or weight loss HENMT HENMT: No rhinitis, sore throat/mouth sore, nasal congestion, contacts or glaucoma Endo Endocrine: Yes heat intolerance and cold intolerance; No thyroid disease, polydipsia, hepatitis or excessive urine Skin Skin: No Bleeding, bruising, changing moles or suspicious lesion Musc Musculoskeletal: Yes joint pain, joint stiffness, muscle weakness, back pain and osteoarthritis; No Muscle aches/ myalgia Neuro Neurological: No headache(s), No lightheadedness and No numbness Cardio Cardiovascular: Yes fatigue and shortness of breat with exertion; No chest pain or pacemaker Psych Psychiatric: Yes depression; No claustrophobia or anxiety Resp Respiratory: Yes shortness of breath; No spitting up, sleep apnea, asthma, emphysema, TB, Cough or Smoker Gastro Gastrointestinal: No diarrhea, constipation, blood in stool, nausea, vomiting or abdominal bloating Yvon Hematologic: No anemia, No bleeding and No abnormal bleeding Genitourinary: Yes urinary frequency and incontinence; No blood in urine Exam Details Right Upper Extremity Inspection: Well-healed radial sided volar palm laceration between index and long finger metacarpal. No signs of infection. No palpable foreign body or pain over the metacarpals. Negative Tinel sign over the area. No overlying skin changes. He has severe thenar atrophy. Overall intrinsic atrophy as well Palpation: No tenderness to palpation. No hyperpathia or allodynia. Provocative tests * Positive Phalen's * Positive Durkan's * Negative Tinel's at the wrist, positive Tinel's over the cubital tunnel Motor: Able to bend and extend all MP, PIP, and DIP joints. Unable to cross fingers. * 2/5 APB * 3/5 first dorsal interossei Sensory: Intact to light touch on the radial and ulnar borders, and 2-point discrimination is 4 mm on the radial and ulnar (more content not included)... Normal [facility] CNNURSEon 04-10-2024 CNNURSE Nurse Visit (RADTWS) VICTOR HUGO SHETH ([id number]) 1950 M Date Time Provider Department 04/10/24 10:45 AM [facility] During your visit today, we recorded the following information about you: Alma Delia Ye RN 04/10/2024 11:18 AM Signed Radiation Therapy - Patient Education Note PATIENT NAME: Victor Hugo Sheth PATIENT April 10, 2024 [facility] FACILITY/LOCATION: [place] READINESS TO LEARN Cognitive Ability: Alert and oriented Motivation to learn: Eager Interested Family Support: High - Very involved in pt care Instruction provide to: Patient and family member Patient learns best by: Multiple Methods Factors effecting learning: None Physical limitations effecting learning: None LEARNING RESPONSE Diagnosis: Pt simulated today for radiation therapy to prostate. Education Topic/Teaching Points: Radiation therapy, Side effects, and OTV: Method of instruction: Teach Back skin care Individual instruction Written instruction/Handouts Verbal instruction Patient /Family response: Patient and family verbalized understanding of radiation treatments, side effects, OTV, and transportation. Follow-up plan: Patient instructed to call with any further issues Contact information given. Supplemental material: Informational handouts on Department phone list, Bladder function, Diarrhea, Fatigue, and [place] instructions, XRT sheet and Aquaphor handout. Referral (recommendation): None, Pt denied need for social work, van service, and sample box maker. Patient has an Onbody or Implanted device: No Signed by: Alma Delia Ye RN Allergies As of Date: 04/10/2024 Noted Allergy Reaction RYBELSUS (SEMAGLUTIDE) 04/16/2021 6 - Diarrhea Date Reviewed: 03/23/2024 Reviewed by: Alma Delia Ye RN - Fully Assessed Reason for Visit: Patient Education [91] Primary Visit Diagnosis:Prostate cancer (HCC) [C61] Prescriptions as of 04/10/2024 - atorvastatin (LIPITOR) 80 mg tablet Take 1 tablet by mouth daily at bedtime. - glimepiride (AMARYL) 4 mg tablet Take 1 tablet by mouth two times a day with meals. - clopidogrel (PLAVIX) 75 mg tablet Take 1 tablet by mouth once daily. - empagliflozin (JARDIANCE) 25 mg tablet Take 1 tablet by mouth daily with breakfast. - lisinopril (ZESTRIL) 10 mg tablet Take 1 tablet by mouth once daily. - metFORMIN (GLUCOPHAGE) 1,000 mg tablet Take 1 tablet by mouth two times a day with meals. - metoprolol succinate ER (TOPROL XL) 25 mg 24 hr tablet Take 1 tablet by mouth once daily. - SITagliptin phosphate (JANUVIA) 100 mg tablet Take 1 tablet by mouth once daily. - blood sugar diagnostic (BLOOD GLUCOSE TEST) test strip Test blood sugar(s) 2 times daily. Dx: Other DM Code E11.42 Insulin: No - albuterol HFA (PROVENTIL HFA, VENTOLIN HFA) 90 mcg/actuation inhaler Inhale 2 Puffs as instructed every 4 hours as needed. - Lancets lancets Test blood sugar(s) 2 times daily. Dx: Other DM Code E11.42 Insulin: No - Blood-Glucose Meter Test Blood Sugars 2 times daily Dx E11.42 Insulin: No - flash glucose sensor (FREESTYLE ADRIAN 10 DAY SENSOR) kit 1 Each one time a week. Check blood sugar twice a day - flash glucose scanning reader (FREESTYLE ADRIAN 10 DAY READER) 1 Device twice daily. Check blood sugar twice a day Problem List As Of Date 04/10/2024 Noted Resolved Mixed hyperlipidemia [E78.2] 09/13/2012 Depression with anxiety [F41.8] Neck pain [M54.2] 10/04/2013 Carpal tunnel syndrome of right wrist [G56.01] 10/27/2013 DDD (degenerative disc disease), cervical [M50.* CAD (coronary artery disease), [place] coronary *05/14/2014 Ischemic cardiomyopathy [I25.5] 05/25/2014 Presence of drug coated stent in LAD coronary a*05/25/2014 Combined senile cataract [H25.819] 10/12/2014 06/10/2017 Vitreous floaters of both eyes [H43.393] 10/12/2014 Type 2 diabetes mellitus without retinopathy (H*10/12/2014 Tachycardia [R00.0] 10/30/2014 Chronic systolic congestive heart failure (HCC)*03/13/2015 Gastroesophageal reflux disease without esophag*03/13/2015 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] 03/13/2015 Smoker [F17.200] 03/13/2015 Diabetic eye exam (HCC) [Z01.00, E11.9] 05/15/2015 Uncontrolled type 2 diabetes mellitus with hype*07/18/2015 Type 2 diabetes mellitus with diabetic neuropat*11/20/2015 Combined forms of age-related cataract, bilater*06/15/2016 Screening for colon cancer [Z12.11] 12/29/2016 Obesity, Class II, BMI 35-39.9 [E66.812] 05/13/2017 Prostate disorder [N42.9] 11/03/2017 Encounter for Medicare annual wellness exam [Z0*11/17/2017 Combined forms of age-related cataract of both *06/15/2016 Essential hypertension [I10] 09/19/2018 Elevated PSA [R97.20] 01/26/2019 Medication management [Z79.899] 07/24/2019 Iron deficiency anemia [D50.9] 09/26/2019 DDD (degenerative disc disease), lumbar [M51.36*12/07/2019 Arthritis of both knees [M17 (more content not included)... Normal [facility] [place] 04-07-2024 CNPN Telephone (RADTWS) VICTOR HUGO SHETH ([id number]) 1950 Date Time Provider Department 04/07/24 HAYLEY GUTIERREZ During your visit today, we recorded the following information about you: Alma Delia Ye RN 04/07/2024 8:31 AM Signed Pt called to inform Dr Gutierrez that he would like to proceed with radiation therapy. He will await a telephone call from the therapists to set up his simulation appointment. Chey Bradford 04/07/2024 3:39 PM Signed Patient called stating he received message from therapist and will be here on the Allergies As of Date: 04/07/2024 Noted Allergy Reaction RYBELSUS (SEMAGLUTIDE) 04/16/2021 6 - Diarrhea Date Reviewed: 03/23/2024 Reviewed by: Alma Delia Ye, RN - Fully Assessed Prescriptions as of 04/10/2024 - atorvastatin (LIPITOR) 80 mg tablet Take 1 tablet by mouth daily at bedtime. - glimepiride (AMARYL) 4 mg tablet Take 1 tablet by mouth two times a day with meals. - clopidogrel (PLAVIX) 75 mg tablet Take 1 tablet by mouth once daily. - empagliflozin (JARDIANCE) 25 mg tablet Take 1 tablet by mouth daily with breakfast. - lisinopril (ZESTRIL) 10 mg tablet Take 1 tablet by mouth once daily. - metFORMIN (GLUCOPHAGE) 1,000 mg tablet Take 1 tablet by mouth two times a day with meals. - metoprolol succinate ER (TOPROL XL) 25 mg 24 hr tablet Take 1 tablet by mouth once daily. - SITagliptin phosphate (JANUVIA) 100 mg tablet Take 1 tablet by mouth once daily. - blood sugar diagnostic (BLOOD GLUCOSE TEST) test strip Test blood sugar(s) 2 times daily. Dx: Other DM Code E11.42 Insulin: No - albuterol HFA (PROVENTIL HFA, VENTOLIN HFA) 90 mcg/actuation inhaler Inhale 2 Puffs as instructed every 4 hours as needed. - Lancets lancets Test blood sugar(s) 2 times daily. Dx: Other DM Code E11.42 Insulin: No - Blood-Glucose Meter Test Blood Sugars 2 times daily Dx E11.42 Insulin: No - flash glucose sensor (FREESTYLE ADRIAN 10 DAY SENSOR) kit 1 Each one time a week. Check blood sugar twice a day - flash glucose scanning reader (FREESTYLE ADRIAN 10 DAY READER) 1 Device twice daily. Check blood sugar twice a day Problem List As Of Date 04/07/2024 Noted Resolved Mixed hyperlipidemia [E78.2] 09/13/2012 Depression with anxiety [F41.8] Neck pain [M54.2] 10/04/2013 Carpal tunnel syndrome of right wrist [G56.01] 10/27/2013 DDD (degenerative disc disease), cervical [M50.* CAD (coronary artery disease), [place] coronary *05/14/2014 Ischemic cardiomyopathy [I25.5] 05/25/2014 Presence of drug coated stent in LAD coronary a*05/25/2014 Combined senile cataract [H25.819] 10/12/2014 06/10/2017 Vitreous floaters of both eyes [H43.393] 10/12/2014 Type 2 diabetes mellitus without retinopathy (H*10/12/2014 Tachycardia [R00.0] 10/30/2014 Chronic systolic congestive heart failure (HCC)*03/13/2015 Gastroesophageal reflux disease without esophag*03/13/2015 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] 03/13/2015 Smoker [F17.200] 03/13/2015 Diabetic eye exam (HCC) [Z01.00, E11.9] 05/15/2015 Uncontrolled type 2 diabetes mellitus with hype*07/18/2015 Type 2 diabetes mellitus with diabetic neuropat*11/20/2015 Combined forms of age-related cataract, bilater*06/15/2016 Screening for colon cancer [Z12.11] 12/29/2016 Obesity, Class II, BMI 35-39.9 [E66.812] 05/13/2017 Prostate disorder [N42.9] 11/03/2017 Encounter for Medicare annual wellness exam [Z0*11/17/2017 Combined forms of age-related cataract of both *06/15/2016 Essential hypertension [I10] 09/19/2018 Elevated PSA [R97.20] 01/26/2019 Medication management [Z79.899] 07/24/2019 Iron deficiency anemia [D50.9] 09/26/2019 DDD (degenerative disc disease), lumbar [M51.36*12/07/2019 Arthritis of both knees [M17.0] 12/12/2019 Corneal scar, 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 Patient was advised to wait until appointments were scheduled and then speak with financial. Sheyla Garcia, GARRETT 03/31/2024 9:52 AM Signed Pt has phone call appointment with Dr Gutierrez 04/03 concenring if he is going to do radiation or not. Orders will not be in until he tells us he wants to proceed. Allergies As of Date: 03/27/2024 Noted Allergy Reaction RYBELSUS (SEMAGLUTIDE) 04/16/2021 6 - Diarrhea Date Reviewed: 03/23/2024 Reviewed by: Alma Delia Ye RN - Fully Assessed Reason for Visit: Patient Question [1157] Prescriptions as of 03/31/2024 - atorvastatin (LIPITOR) 80 mg tablet Take 1 tablet by mouth daily at bedtime. - glimepiride (AMARYL) 4 mg tablet Take 1 tablet by mouth two times a day with meals. - clopidogrel (PLAVIX) 75 mg tablet Take 1 tablet by mouth once daily. - empagliflozin (JARDIANCE) 25 mg tablet Take 1 tablet by mouth daily with breakfast. - lisinopril (ZESTRIL) 10 mg tablet Take 1 tablet by mouth once daily. - metFORMIN (GLUCOPHAGE) 1,000 mg tablet Take 1 tablet by mouth two times a day with meals. - metoprolol succinate ER (TOPROL XL) 25 mg 24 hr tablet Take 1 tablet by mouth once daily. - SITagliptin phosphate (JANUVIA) 100 mg tablet Take 1 tablet by mouth once daily. - blood sugar diagnostic (BLOOD GLUCOSE TEST) test strip Test blood sugar(s) 2 times daily. Dx: Other DM Code E11.42 Insulin: No - albuterol HFA (PROVENTIL HFA, VENTOLIN HFA) 90 mcg/actuation inhaler Inhale 2 Puffs as instructed every 4 hours as needed. - Lancets lancets Test blood sugar(s) 2 times daily. Dx: Other DM Code E11.42 Insulin: No - Blood-Glucose Meter Test Blood Sugars 2 times daily Dx E11.42 Insulin: No - flash glucose sensor (FREESTYLE ADRIAN 10 DAY SENSOR) kit 1 Each one time a week. Check blood sugar twice a day - flash glucose scanning reader (FREESTYLE ADRIAN 10 DAY READER) 1 Device twice daily. Check blood sugar twice a day Problem List As Of Date 03/27/2024 Noted Resolved Mixed hyperlipidemia [E78.2] 09/13/2012 Depression with anxiety [F41.8] Neck pain [M54.2] 10/04/2013 Carpal tunnel syndrome of right wrist [G56.01] 10/27/2013 DDD (degenerative disc disease), cervical [M50.* CAD (coronary artery disease), [place] coronary *05/14/2014 Ischemic cardiomyopathy [I25.5] 05/25/2014 Presence of drug coated stent in LAD coronary a*05/25/2014 Combined senile cataract [H25.819] 10/12/2014 06/10/2017 Vitreous floaters of both eyes [H43.393] 10/12/2014 Type 2 diabetes mellitus without retinopathy (H*10/12/2014 Tachycardia [R00.0] 10/30/2014 Chronic systolic congestive heart failure (HCC)*03/13/2015 Gastroesophageal reflux disease without esophag*03/13/2015 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] 03/13/2015 Smoker [F17.200] 03/13/2015 Diabetic eye exam (HCC) [Z01.00, E11.9] 05/15/2015 Uncontrolled type 2 diabetes mellitus with hype*07/18/2015 Type 2 diabetes mellitus with diabetic neuropat*11/20/2015 Combined forms of age-related cataract, bilater*06/15/2016 Screening for colon cancer [Z12.11] 12/29/2016 Obesity, Class II, BMI 35-39.9 [E66.812] 05/13/2017 Prostate disorder [N42.9] 11/03/2017 Encounter for Medicare annual wellness exam [Z0*11/17/2017 Combined forms of age-related cataract of both *06/15/2016 Essential hypertension [I10] 09/19/2018 Elevated PSA [R97.20] 01/26/2019 Medication management [Z79.899] 07/24/2019 Iron deficiency anemia [D50.9] 09/26/2019 DDD (degenerative disc disease), lumbar [M51.36*12/07/2019 Arthritis of both knees [M17.0] 12/12/2019 Corneal scar, 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] 07/18/2020 Dry eye syndrome of both eyes [H04.123] 07/18/[address] [Z78.9] 10/22/2021 Advance directive discussed with patient [Z71.8*10/22/2021 Prostate cancer (HCC) [C61] 03/03/2024 Encounter Status:Closed by SHEYLA GARCIA on 03/31/24 [facility] CNOVon 03-23-2024 CNOV Office Visit (RADTWS ) VICTOR HUGO SHETH ([id number]) 1950 M Date Time Provider Department 03/23/24 1:30 PM HAYLEY GUTIERREZ RADSANDEEP During your visit today, we recorded the following information about you: Temperature Pulse Respiration Blood pressure 97 degrees 99/minute 16/minute 131/84 Weight 106.1 kg Hayley Gutierrez MD 03/28/2024 10:31 AM Signed Radiation Oncology - New Patient/Consult Note PATIENT NAME: Victor Hugo Sheth PATIENT REQUESTING PROVIDER: Dr.Michael Kristine Jefferson Jr DIAGNOSIS: Clinical stage IIA, cT1c, prostatic adenocarcinoma with Eugene score 7 (3+4), grade group 2 and PSA 5.86 ng/mL. Cancer Staging Prostate cancer (HCC) Staging form: Prostate Cancer - Clinical stage from 03/03/2024: Stage IIA (T1c, N0, M0, PSA: Less than 10, Mabscott 7) - Signed by Ayan Jefferson Jr., MD on 03/03/2024 HPI: 74 year old male who presents with above diagnosis, for an opinion regarding the role of radiation therapy in the management of the patient's disease. Final recommendations will be communicated back to the requesting physician by way of the shared medical record, or letter to requesting physician via US mail. 74 year old man who had elevated PSA to 4.5 recently. It was 2.54 on 07/12/19 and 3.33 on 04/14/21, 3.18 on 03/17/22, 4 on 10/01/22, 4.5 on 08/20/23 and then 5.86 on 11/24/23. isoPSA was 6.3. He was seen by Dr. Jefferson and underwent TRUS and prostate biopsy on 02/29/24. A prostate volume of approximately 29.69 grams. The prostate was homogeneous. Biopsy results are as follows: FINAL DIAGNOSIS A. Prostate, left base, core biopsy: - Prostatic adenocarcinoma, Mabscott score 3+3=6 (Grade Group 1), involving 1 of 1 core (1 mm, 5%). B. Prostate, left mid, core biopsy: - Atypical small acinar proliferation adjacent to high-grade prostatic intraepithelial neoplasia (PIN), suspicious for adenocarcinoma but cannot exclude ?outpouchings? of high-grade PIN. C. Prostate, left apex, core biopsy: - Prostatic adenocarcinoma, Mabscott score 3+3=6 (Grade Group 1), involving 1 of 1 core (4 mm, 30%). D. Prostate, left lateral base, core biopsy: - High-grade prostatic intraepithelial neoplasia (PIN). E. Prostate, left lateral mid, core biopsy: - Prostatic adenocarcinoma, Mabscott score 3+3=6 (Grade Group 1), involving 1 of 1 core (1 mm, 5%). F. Prostate, left lateral apex, core biopsy: - Benign prostatic tissue. G. Prostate, right base, core biopsy: - Benign prostatic tissue. H. Prostate, right mid, core biopsy: - Prostatic adenocarcinoma, Eugene score 3+3=6 (Grade Group 1), involving 1 of 1 core (<1 mm, 5%). I. Prostate, right apex, core biopsy: - Benign prostatic tissue. J. Prostate, right lateral base, core biopsy: - Prostatic adenocarcinoma, Mabscott score 3+4=7 (Grade Group 2), involving 1 of 1 core (discontinuous 8 mm, 45%). - Percentage of Mabscott pattern 4 = 40%. K. Prostate, right lateral mid, core biopsy: - Prostatic adenocarcinoma, Mabscott score 3+4=7 (Grade Group 2), involving 1 of 1 core (1 mm, 5%). - Percentage of Eugene pattern 4 = 30%. L. Prostate, right lateral apex, core biopsy: - Prostatic adenocarcinoma, Mabscott score 3+3=6 (Grade Group 1), involving 1 of 1 core (discontinuous 13 mm, 70%). Prostate Cancer Biopsy Summary Number of cores examined: 12 Number of cores positive: 7 Highest Grade Group: 2 Highest % of core involvement: 70% (discontinuous 13 mm) Unfavorable histology: Present (Less than 10%) Borderline histology: Not applicable Large cribriform pattern 4: Absent Intraductal carcinoma: Absent ALLERGIES Allergen Reactions Rybelsus [Semagluti* Diarrhea Current Outpatient Medications on File Prior to Visit Medication Sig atorvastatin (LIPITOR) 80 mg tablet Take 1 tablet by mouth daily at bedtime. glimepiride (AMARYL) 4 mg tablet Take 1 tablet by mouth two times a day with meals. clopidogrel (PLAVIX) 75 mg tablet Take 1 tablet by mouth once daily. empagliflozin (JARDIANCE) 25 mg tablet Take 1 tablet by mouth daily with breakfast. lisinopril (ZESTRIL) 10 mg tablet Take 1 tablet by mouth once daily. metFORMIN (GLUCOPHAGE) 1,000 mg tablet Take 1 tablet by mouth two times a day with meals. metoprolol succinate ER (TOPROL XL) 25 mg 24 hr tablet Take 1 tablet by mouth once daily. SITagliptin phosphate (JANUVIA) 100 mg tablet Take 1 tablet by mouth once daily. blood sugar diagnostic (BLOOD GLUCOSE TEST) test strip Test blood sugar(s) 2 times daily. Dx: Other DM Code E11.42 Insulin: No albuterol HFA (PROVENTIL HFA, VENTOLIN HFA) 90 mcg/actuation inhaler Inhale 2 Puffs as instructed every 4 hours as needed. Lancets lancets Test blood sugar(s) 2 times daily. Dx: Other DM Code E11.42 Insulin: No Blood-Glucose Meter Test Blood Sugars 2 times daily Dx E11.42 Insulin: No flash glucose sensor (FREESTYLE ADRIAN 10 DAY SENSOR) kit 1 Each on (more content not included)... Normal [facility] CNOVon 03-17-2024 CNOV Office Visit (FAMPWS ) VICTOR HUGO SHETH ([id number]) 1950 M Date Time Provider Department 03/17/24 1:20 PM DEBORA MARTINEZ During your visit today, we recorded the following information about you: Temperature Pulse Respiration Blood pressure 98.6 degrees 120/minute 18/minute 130/70 Debora Martinez PA-C 03/17/2024 2:02 PM Signed Chief Complaint Patient presents with: Musculoskeletal Problem: Right hand 1st and 2nd digits, bilateral back of thighs go numb and burn HPI Victor Hugo Sheth is a 74 year old male who presents here today for Above Complaints.. Patient scheduled for routine check up but has multiple concerns. Hand numbness since dog bite 6 months ago B/l back of leg pain. States he has burning pain. If he doesn't sit down his legs will give out under him. States he has been having b/l shoulder pain for the past couple months. States he was using a weed eater and got his foot caught and ended up falling. Since then he has had pain. Needs referral for cardiology- would like to stay with [facility]. Past medical history, appointments, medications, allergies reviewed. Previous Medical History PAST MEDICAL HISTORY Diagnosis Date Advance directive discussed with patient 10/22/2021 Discussed 09/2021 Arthritis of both knees 12/12/2019 CAD (coronary artery disease), [place] coronary artery 05/14/[address] Khalil [facility] 05/14/[address] [facility] report from [facility], showed 85% stenosis in pLAD followed by 95% stenosis and 50-75% stenosis in mid LAD. Minimal disease in LCx and LCA. RCA with proximal and distal 25% stenosis. [facility] 05/17 s/p YESENIA x2 to LAD Plan: Dc home with follow-up Continue Plavix Carpal tunnel syndrome of right wrist 10/27/2013 EMG/NCT 10/27/13=mild right CTS Chronic systolic congestive heart failure (HCC) 03/13/2015 08/02/2018: Home BP Cuff Validated. Home BP: 118/71 Office BP: 116/72 Combined forms of age-related cataract of both eyes 06/15/2016 Combined forms of age-related cataract, bilateral 06/15/2016 Congestive heart failure (HCC) 03/13/2015 COPD with chronic bronchitis (HCC) 03/13/2015 Corneal scar, right eye 07/18/2020 DDD (degenerative disc disease), cervical DDD (degenerative disc disease), lumbar 12/07/2019 Depression with anxiety Diabetic eye exam ([facility]) 05/15/2015 Last done 06/27/2018: no retinopathy. Dry eye syndrome of both eyes 07/18/2020 Elevated PSA 01/26/2019 Encounter for Medicare annual wellness exam 11/17/2017 Medicare Part B: 12/23/2016 last done: 09/10/2023 Does not want ELMO or colonoscopy Essential hypertension 09/19/2018 Gastroesophageal reflux disease without esophagitis 03/13/2015 History of compression fracture of spine 1971 high school football Iron deficiency anemia 09/26/2019 Iron deficiency anemia 09/26/2019 EGD and colonoscopy done 10/2019 Ischemic cardiomyopathy 05/25/2014 Leukocytosis 09/19/2018 Repeat 10/2018 ok [address] in place 10/22/2021 DPA: Jon (son) Medicare annual wellness visit, initial 11/17/2017 Medicare Part B: 12/23/2016 last done: 01/26/2019 Does not want ELMO or colonoscopy Mixed hyperlipidemia 09/13/2012 Neck pain 10/04/2013 Obesity, Class II, BMI 35-39.9 05/13/2017 Presence of drug coated stent in LAD coronary artery 05/25/2014 Smoker 03/13/2015 Started at 20 yo up to 2 PPD. as of 02/2015 only 5 cigs a day Tachycardia 10/30/2014 Thrombocytosis 09/19/2018 Repeat 10/2018 ok Type 2 diabetes mellitus with diabetic neuropathy, without long-term current use of insulin ([facility]) 11/20/2015 Type 2 diabetes mellitus without retinopathy ([facility]) 10/12/2014 Vitreous floaters of both eyes 10/12/2014 Previous Surgical History PAST SURGICAL HISTORY Procedure Laterality Date COLONOSCOPY FLX DX W/COLLJ SPEC WHEN PFRMD 11/16/2019 Colonoscopy ESOPHAGOGASTRODUODENOSCOPY TRANSORAL DIAGNOSTIC 11/16/2019 EGD FECAL OCCULT BLOOD TEST 03/08/2019 negative HEART CATHETERIZATION 05/14/14 triple vessel disease, YESENIA x 2 to the prox and mid LAD PAST SURGICAL HISTORY OF 1971 vertebral fracture in football? no repair. REPAIR FINGER TENDON left hand- cut tendons with chain saw TONSILLECTOMY AND ADENOIDECTOMY AGE 14/> 1981 TONSILLECTOMY HX Family History FAMILY HISTORY Problem Relation Age of Onset Emphysema Father Coronary Artery Disease Brother CABG Hypertension Brother Prostate Cancer Brother Patient Allergies ALLERGIES Allergen Reactions Rybelsus [Semagluti* Diarrhea Current Medications Current Outpatient Medications on File Prior to Visit Medication Sig atorvastatin (LIPITOR) 80 mg tablet Take 1 tablet by mouth daily at bedtime. glimepiride (AMARYL) 4 mg tablet Take 1 tablet by mouth two times a day with meals. clopidogrel (PLAVIX) 75 mg tablet Take 1 tablet by mouth once daily. empagliflozin (JARDIANCE) 25 mg tablet Take 1 tablet by mouth daily with breakfast. (more content not included)... Normal [facility] CNOVon 03-14-2024 CNOV Office Visit (UROLMD ) VICTOR HUGO SHETH ([id number]) 1950 M Date Time Provider Department 03/14/24 10:00 AM AYAN JEFFERSON JR URODESIRE During your visit today, we recorded the following information about you: Ayan Jefferson Jr., MD 03/14/2024 10:14 AM Signed ESTABLISHED PATIENT OFFICE VISIT HPI Victor Hugo Sheth is a 74 year old male who presents sp trus bx Prostate Cancer Consultation Note Mr Victor Hugo Sheth was diagnosed with Clinical Stage(1c) Mabscott's score 7 (3+4) adenocarcinoma of the prostate with an associated PSA of 5 and an estimated prostatic volume of 30. He had 7 of 12 cores positive with disease identified in the 7 portion(s) of the prostate. The patient presents alone and I have discussed his apparent localized prostate cancer at length. Specifically we discussed the Mabscott score, number and percent of cores involved with disease, the nathaly tables risk stratification criteria which are based upon the Mabscott score, PSA, and clinical T stage. Based upon the clinical features the patient falls into moderate risk category for 10 year biochemical disease free survival regardless of which therapeutic modality he chooses. He understands that there is a small, but real, chance of occult metastatic disease and the logic of when metastatic workup is appropriate. We discussed various options for management of his disease including watchful waiting, active surveillance, radiation modality and surgical extirpation. The options of watchful waiting or active surveillence were gone over and what these would entail, with selective delayed intervention, hormonal therapy in its various forms. The protocol for periodic PSA tests and repeating his transrectal prostate ultrasound, without or with prostate biopsy was covered. With respect to surgical intervention we compared and contrasted open, laparoscopic and robotic prostatectomy with or without bilateral pelvic lymphadenectomy. We compared these with respect to cancer control, urinary control, and erectile dysfunction. I explained that any patient undergoing treatment for prostate cancer may need additional therapy. The possibility of severe or total loss of urinary control, possibly needed surgery to implant an artificial urinary sphincter is possible after prostate cancer surgery. The possibility of loss of erections, and the possible treatment options was discussed. The other potential downside, including but not limited to urethral stricture, bladder neck contracture. I explained to him that robotic prostatectomy is a major surgical procedure and has possible major complications including, but not limited to bleeding requiring transfusion, rectal injury requiring a temporary colostomy, damage to abdominal structure, infection, myocardial infarction, stroke, deep vein thrombosis/ pulmonary embolism, or open conversion. We discussed the procedure related morbidity, hospitalization, and convalescence period. We have reviewed the recent data, which would show that at least one out of ten patients undergoing radical prostatectomy will have at least one complication whether minor or major, and this could be as high as 25% (one in four). We have discussed that with surgical intervention. We also discussed radiation therapy; external beam, and out-patient brachytherapy as well as the attendant procedure related morbidity as it relates to the low but known risk of founder ceo & president urinary frequency, urgency, urgency with bowel movements and risk of urethral radiation injury. We also discussed time commitment for the external beam therapy being once a day, five days a week for 5-7 weeks during which most people can continue normal daily activities. I described the likelihood of flare up of hemorrhoids, and mild decrease in physical stamina during the later portion of the treatments. We discussed the time frame for PSA response that would indicate efficacy of the radiation therapy. A referral to radiation oncology was offered. Additionally, we discussed cryosurgical ablation of the prostate (with without nerve sparing). Specifically, we discussed the procedure related morbidity, risk of rectal injury, urinary incontinence, post cryo urinary frequency and urgency, and risk of impotence. We also discussed the outpatient nature of the procedure, minimal need for pain medication and the need for a urinary catheter for 2-weeks following the procedure and the time frame of PSA response that would reflect the efficacy of the cryosurgical procedure and the follow up that would be involved. Finally, with respect to the cryosurgical procedure we discussed that to date we do not have group home (10-year) outcomes data, however, the published data do compare favorably to other treatment modalities and there have been no data that indicate any superiorit (more content not included)... Normal [facility] CBC W Auto Differential pane l (Bld)on 03-10-2024 Basophils (Bld) [#/Vol] 0.05 10*3/uL Normal <0.11 [facility] Comment on above: Order Comment: Speci men Type: BLOOD SPECIMEN Ordering Facility: [facility] Address: [address] [place] [address] Performed By: #### 5 7021-8 #### [facility] CLIA [id number] [address] [place] [address] [place] Basophils/100 WBC (Bld) 0.4 % Normal [facility] Comment on above: Order Comment: Speci men Type: BLOOD SPECIMEN Ordering Facility: [facility] Address: [address] [place] [address] Performed By: #### 5 7021-8 #### [facility] CLIA [id number] [address] [place] [address] [place] Differential cell count method Nom (Bld) Auto Normal [facility] Comment on above: Order Comment: Speci men Type: BLOOD SPECIMEN Ordering Facility: [facility] Address: [address] [place] [address] Performed By: #### 5 7021-8 #### [facility] CLIA [id number] [address] [place] [address] [place] Eosinophils (Bld) [#/Vol] 0.32 10*3/uL Normal <0.46 [facility] Comment on above: Order Comment: Speci men Type: BLOOD SPECIMEN Ordering Facility: [facility] Address: [address] [place] [address] Performed By: #### 5 7021-8 #### [facility] CLIA [id number] [address] [place] [address] [place] Eosinophils/100 WBC (Bld) 2.7 % Normal [facility] Comment on above: Order Comment: Speci men Type: BLOOD SPECIMEN Ordering Facility: [facility] Address: [address] [place] [address] Performed By: #### 5 7021-8 #### [facility] CLIA [id number] [address] [place] [address] [place] Erythrocyte distribution width (RBC) [Ratio] 14.0 % Normal 11.5-15.0 [facility] Comment on above: Order Comment: Speci men Type: BLOOD SPECIMEN Ordering Facility: [facility] Address: [address] [place] [address] Performed By: #### 5 7021-8 #### [facility] CLIA [id number] [address] [place] [address] [place] Hematocrit (Bld) [Volume fraction] 43.5 % Normal 39.0-51.0 [facility] Comment on above: Order Comment: Speci men Type: BLOOD SPECIMEN Ordering Facility: [facility] Address: [address] [place] [address] Performed By: #### 5 7021-8 #### [facility] CLIA [id number] [address] [place] [address] [place] Hemoglobin (Bld) [Mass/Vol] 13.7 g/dL Normal 13.0-17.0 [facility] Comment on above: Order Comment: Speci men Type: BLOOD SPECIMEN Ordering Facility: [facility] Address: [address] [place] [address] Performed By: #### 5 7021-8 #### [facility] CLIA [id number] [address] [place] [address] [place] Immature granulocytes (Bld) [#/Vol] 0.04 10*3/uL Normal <0.10 [facility] Comment on above: Order Comment: Speci men Type: BLOOD SPECIMEN Ordering Facility: [facility] Address: [address] [place] [address] Performed By: #### 5 7021-8 #### [facility] CLIA [id number] [address] [place] [address] [place] Immature granulocytes/100 WBC (Bld) 0.3 % Normal [facility] Comment on above: Order Comment: Speci men Type: BLOOD SPECIMEN Ordering Facility: [facility] Address: [address] [place] [address] Performed By: #### 5 7021-8 #### [facility] CLIA [id number] [address] [place] [address] [place] Lymphocytes (Bld) [#/Vol] 2.59 10*3/uL Normal 1.00-4.00 [facility] Comment on above: Order Comment: Speci men Type: BLOOD SPECIMEN Ordering Facility: [facility] Address: [address] [place] [address] Performed By: #### 5 7021-8 #### [facility] CLIA [id number] [address] [place] [address] [place] Lymphocytes/100 WBC (Bld) 21.9 % Normal [facility] Comment on above: Order Comment: Speci men Type: BLOOD SPECIMEN Ordering Facility: [facility] Address: [address] [place] [address] Performed By: #### 5 7021-8 #### [facility] CLIA [id number] [address] [place] [address] [place] MCH (RBC) [Entitic mass] 28.8 pg Normal 26.0-34.0 [facility] Comment on above: Order Comment: Speci men Type: BLOOD SPECIMEN Ordering Facility: [facility] Address: [address] [place] [address] Performed By: #### 5 7021-8 #### [facility] CLIA [id number] [address] [place] [address] [place] MCHC (RBC) [Mass/Vol] 31.5 g/dL Normal 30.5-36.0 [facility] Comment on above: Order Comment: Speci men Type: BLOOD SPECIMEN Ordering Facility: [facility] Address: [address] [place] [address] Performed By: #### 5 7021-8 #### [facility] [id number] [address] [place] [address] [place] MCV (RBC) [Entitic vol] 91.4 fL Normal 80.0-100.0 [facility] Comment on above: Order Comment: Speci men Type: BLOOD SPECIMEN Ordering Facility: [facility] Address: [address] [place] [address] Performed By: #### 5 7021-8 #### [facility] [id number] [address] [place] [address] [place] Monocytes (Bld) [#/Vol] 0.88 10*3/uL High <0.87 [facility] Comment on above: Order Comment: Speci men Type: BLOOD SPECIMEN Ordering Facility: [facility] Address: [address] [place] [address] Performed By: #### 5 7021-8 #### [facility] [id number] [address] [place] [address] [place] Monocytes/100 WBC (Bld) 7.5 % Normal [facility] Comment on above: Order Comment: Speci men Type: BLOOD SPECIMEN Ordering Facility: [facility] Address: [address] [place] [address] Performed By: #### 5 7021-8 #### [facility] CLIA [id number] [address] [place] [address] [place] Neutrophils (Bld) [#/Vol] 7.93 10*3/uL High 1.45-7.50 [facility] Comment on above: Order Comment: Speci men Type: BLOOD SPECIMEN Ordering Facility: [facility] Address: [address] [place] [address] Performed By: #### 5 7021-8 #### [facility] CLIA [id number] [address] [place] [address] [place] Neutrophils/100 WBC (Bld) 67.2 % Normal [facility] Comment on above: Order Comment: Speci men Type: BLOOD SPECIMEN Ordering Facility: [facility] Address: [address] [place] [address] Performed By: #### 5 7021-8 #### [facility] CLIA [id number] [address] [place] [address] [place] Nucleated RBC (Bld) [#/Vol] 10*3/uL Normal <0.01 [facility] Comment on above: Order Comment: Speci men Type: BLOOD SPECIMEN Ordering Facility: [facility] Address: [address] [place] [address] Performed By: #### 5 7021-8 #### [facility] CLIA [id number] [address] [place] [address] [place] Nucleated RBC/100 WBC (Bld) [Ratio] 0.0 /100 WBC Normal [facility] Comment on above: Order Comment: Speci men Type: BLOOD SPECIMEN Ordering Facility: [facility] Address: [address] [place] [address] Performed By: #### 5 7021-8 #### [facility] CLIA [id number] [address] [place] [address] [place] Platelet mean volume (Bld) [Entitic vol] 8.9 fL Low 9.0-12.7 [facility] Comment on above: Order Comment: Speci men Type: BLOOD SPECIMEN Ordering Facility: [facility] Address: [address] [place] [address] Performed By: #### 5 7021-8 #### [facility] CLIA [id number] [address] [place] [address] [place] Platelets (Bld) [#/Vol] 452 10*3/uL High 150-400 [facility] Comment on above: Order Comment: Speci men Type: BLOOD SPECIMEN Ordering Facility: [facility] Address: [address] [place] [address] Performed By: #### 5 7021-8 #### [facility] CLIA [id number] [address] [place] [address] [place] RBC (Bld) [#/Vol] 4.76 10*6/uL Normal 4.20-6.00 [facility] Comment on above: Order Comment: Speci men Type: BLOOD SPECIMEN Ordering Facility: [facility] Address: [address] [place] [address] Performed By: #### 5 7021-8 #### [facility] CLIA [id number] [address] [place] [address] [place] WBC (Bld) [#/Vol] 11.81 10*3/uL High 3.70-11.00 [facility] Comment on above: Order Comment: Speci men Type: BLOOD SPECIMEN Ordering Facility: [facility] Address: [address] [place] [address] Performed By: #### 5 7021-8 #### [facility] [id number] [address] [place] [address] [place] HbA1c (Bld)on 03-10-2024 Average glucose Estimated from glycated hemoglobin (Bld) [Mass/Vol] 160 mg/dL Normal [facility] Comment on above: Order Comment: Brian curry Type: BLOOD SPECIMEN Ordering Facility: [facility] Address: [address] [place] [address] Result Comment: eAG: (Estimated average glucose) is a calculated value from HgbA1c and is financial representative of the average blood glucose level in the last 2-3 month period. Performed By: #### 5 7021-8 #### [facility] [id number] [address] [place] [address] STATES [place] [facility] HbA1c (Bld) [Mass fraction] 7.2 % High 4.3-5.6 [facility] Comment on above: Order Comment: Brian curry Type: BLOOD SPECIMEN Ordering Facility: [facility] Address: [address] [place] [address] Result Comment: Amer ican Diabetes Association guidelines indicate that patients with HgbA1c in the range 5.7-6.4% are at increased risk for development of diabetes, and intervention by lifestyle modification may be beneficial. HgbA1c greater or equal to 6.5% is considered diagnostic of diabetes. Performed By: #### 5 7021-8 #### [facility] [id number] [address] [place] [address] [place] Iron and Iron binding capaci ty panelon 03-10-2024 Iron [Mass/Vol] 240 ug/dL High 41-186 [facility] Comment on above: Order Comment: Brian curry Type: BLOOD SPECIMEN Ordering Facility: [facility] Address: [address] [place] [address] Performed By: #### 5 7021-8 #### [facility] [id number] [address] [place] [address] [place] Iron binding capacity [Mass/Vol] 450 ug/dL High 232-386 [facility] Comment on above: Order Comment: Speci men Type: BLOOD SPECIMEN Ordering Facility: [facility] Address: [address] [place] [address] Performed By: #### 5 7021-8 #### [facility] CLIA [id number] [address] [place] [address] [place] Iron/TIBC [Molar ratio] 53.3 % Normal 15.0-57.0 [facility] Comment on above: Order Comment: Speci men Type: BLOOD SPECIMEN Ordering Facility: [facility] Address: [address] [place] [address] Performed By: #### 5 7021-8 #### [facility] CLIA [id number] [address] [place] [address] [place] LIPID PANEL, NONFASTINGon Cholesterol [Mass/Vol] 126 mg/dL Normal <200 [facility] Comment on above: Order Comment: Speci men Type: BLOOD SPECIMEN Ordering Facility: [facility] Address: [address] [place] [address] Result Comment: <200 mg/dL, Desirable 200-239 mg/dL, Borderline high >239 mg/dL, High Performed By: #### 5 7021-8 #### [facility] CLIA [id number] [address] [place] [address] [place] HDL CHOLESTEROL, NF 40 mg/dL Normal >39 [facility] Comment on above: Order Comment: Speci men Type: BLOOD SPECIMEN Ordering Facility: [facility] Address: [address] [place] [address] Result Comment: 40-5 9 mg/dL, Acceptable >59 mg/dL, High: Negative risk factor for coronary heart disease <40 mg/dL, Low: Positive risk factor for coronary heart disease Performed By: #### 5 7021-8 #### [facility] CLIA [id number] [address] [place] [address] [place] LDL CHOLESTEROL, NF 52 mg/dL Normal <100 [facility] Comment on above: Order Comment: Brian curry Type: BLOOD SPECIMEN Ordering Facility: [facility] Address: [address] [place] [address] Result Comment: <100 mg/dL, Optimal 100-129 mg/dL, Near optimal/above optimal 130-159 mg/dL, Borderline high 160-189 mg/dL, High >189 mg/dL, Very high Secondary prevention optimal LDL Cholesterol levels are recommended to be < 70 mg/dL Performed By: #### 5 7021-8 #### [facility] CLIA [id number] [address] [place] [address] OF [facility] LDL/HDL RATIO, NF 1.30 mg/dL Normal <2.54 [facility] Comment on above: Order Comment: Brian curry Type: BLOOD SPECIMEN Ordering Facility: [facility] Address: [address] [place] [address] Result Comment: Refcaleb nailsce: 1. National Cholesterol Education Program ATP III Guideline At-A-Glance Quick Desk Reference: National Heart, Lung, and Blood [place]. National Institutes of Health. 2001: NIH Publication No. 01-3305. 2. An International Atherosclerosis Society position paper: global recommendations for the management of dyslipidemia: executive summary, Atherosclerosis. 2014: 232(2):410-413. Performed By: #### 5 7021-8 #### [facility] CLIA [id number] [address] [place] [address] [place] NON HDL CHOL, NF 86 mg/dL Normal <130 [facility] Comment on above: Order Comment: Brian curry Type: BLOOD SPECIMEN Ordering Facility: [facility] Address: [address] [place] [address] Result Comment: <130 mg/dL, Optimal 130-159 mg/dL, Near optimal/above optimal 160-189 mg/dL, Borderline high 190-219 mg/dL, High >219 mg/dL, Very high Secondary prevention optimal non HDL Cholesterol levels are recommended to be <100 mg/dL Performed By: #### 5 7021-8 #### [facility] CLIA [id number] [address] [place] [address] [place] T CHOL/HDL RATIO NF 3.15 mg/dL Normal <5.10 [facility] Comment on above: Order Comment: Speci men Type: BLOOD SPECIMEN Ordering Facility: [facility] Address: [address] [place] [address] Performed By: #### 5 7021-8 #### [facility] CLIA [id number] [address] [place] TRIGLYCERIDES, NF 168 mg/dL High <150 [facility] Comment on above: Order Comment: Speci men Type: BLOOD SPECIMEN Ordering Facility: [facility] Address: [address] [place] [address] Result Comment: <150 mg/dL, Normal 150-199 mg/dL, Borderline high 200-499 mg/dL, High >499 mg/dL, Very high Performed By: #### 5 7021-8 #### [facility] CLIA [id number] [address] [place] [address] [place] VLDL CHOLESTEROL, NF 34 mg/dL High <30 [facility] Comment on above: Order Comment: Speci men Type: BLOOD SPECIMEN Ordering Facility: [facility] Address: [address] [place] [address] Performed By: #### 5 7021-8 #### [facility] CLIA [id number] [address] [place] [address] OF [place] CNOVon 02-29-2024 CNOV Office Visit (UROD ) VICTOR HUGO [id number]) 1950 Mandeep Date Time Provider Department 02/29/24 1:00 PM AYAN JEFFERSON JR UROLMGissell During your visit today, we recorded the following information about you: Weight Height 102.5 kg 1.702 m Ayan Jefferson Jr., MD 02/29/2024 1:13 PM Signed PROSTATE BIOPSY WITH ULTRASOUND GUIDANCE Victor Hugo Sheth a 74 year old. History and Physical reviewed and is unchanged. . UNIVERSAL PROTOCOL / SAFETY CHECKLIST Procedure to be Performed: trus bx Sign In: A Moment of CARE was completed. Personnel directly involved with the procedure wore the appropriate PPE (Personal Protective Equipment). Patient/Surrogate Stated/Verified: PATIENT VERIFIED(optional for EMERGENT procedures): Patient name, Date of , Relevant allergies, and The intended procedure Time Out Communication: Intended patient and procedure match the source documents. Consent documented and matches the intended procedure. Sign Out: SIGN OUT (optional for EMERGENT procedures): All specimen containers correctly labeled. Ayan Jefferson Jr, MD Fire risk assessment done Pre procedure dx: elevated psa Post procedure dx: same Informed Consent Discussed: Yes. Risks, benefits, alternatives and personnel discussed with patient who consents to proceed. Discussed RBAPC. Audible time out was performed. Is the patient having any pain? No 0 on a scale of 0 to 10 PSA (ng/mL) Date Value 08/20/2023 4.50 04/14/2021 3.33 PALPABLE NODULE: No Prostate biopsies taken from the site below using ultrasound guidance 1.) RIGHT BASE: 2 2.) RIGHT MID: 2 3.) RIGHT APEX: 2 4.) LEFT BASE: 2 5.) LEFT MID: 2 6.) LEFT APEX: 2 ALLERGIES Allergen Reactions Rybelsus [Semagluti* Diarrhea MEDICATIONS: 10 ml 1% Plain Xylocaine lindsay prostatic nerve block given: Yes PROSTATE ULTRASOUND The prostate sonogram was obtained via transrectal approach. The gland is not enlarged, measuring 30cc. There is a homogeneous echo pattern throughout the prostate gland. Echogenic foci within the gland consistant with clacifications were noted. There is no focal lesion within the pereferal zone of the prostate gland. MD Neo Alicia Jr, Gerald A, MA 02/29/2024 1:47 PM Signed The patient was seen in the office today for follow-up evaluation and transrectal ultrasound guided prostate biopsy for a history of elevated psa (ICD-10 code R97.2). The patient has a prior urologic history of elevated PSA. He is doing well with no new significant complaints. Examination: unchanged The remainder of the examination is unremarkable. All recent laboratory and test results were reviewed with the patient. PSA (ng/mL) Date Value 08/20/2023 4.50 10/01/2022 4.00 03/17/2022 3.18 10/09/2021 3.35 04/14/2021 3.33 12/11/2020 3.04 07/12/2019 2.54 03/08/2019 2.34 Creatinine Date Value Ref Range Status 08/20/2023 0.91 0.73 - 1.22 mg/dL Final A urinalysis was performed revealing: no evidence of infection or hematuria. Urinalysis Specific [place], Ur Date Value Ref Range Status 08/20/2023 1.032 (H) 1.005 - 1.030 Final Glucose, Urine Date Value Ref Range Status 08/20/2023 3+ (A) Negative Final Bilirubin, Urine Date Value Ref Range Status 08/20/2023 Negative Negative Final Ketones, Urine Date Value Ref Range Status 08/20/2023 Negative Negative Final Hemoglobin/Blood,Ur Date Value Ref Range Status 08/20/2023 Negative Negative Final Protein, Urine Date Value Ref Range Status 08/20/2023 Negative Negative Final WBC, Urine Date Value Ref Range Status 08/20/2023 0-5 /HPF 0-5 /HPF Final UNIVERSAL PROTOCOL / SAFETY CHECKLIST Procedure to be Performed: TRANSRECTAL ULTRASOUND GUIDED BIOPSY OF THE PROSTATE Sign In: A Moment of CARE was completed. Personnel directly involved with the procedure wore the appropriate PPE (Personal Protective Equipment). No special equipment needed. Patient/Surrogate Stated/Verified: PATIENT VERIFIED(optional for EMERGENT procedures): Patient name, Date of , Relevant allergies, and The intended procedure Time Out Communication: Intended patient and procedure match the source documents. Consent documented and matches the intended procedure. No relevant labs, photos, and/or imaging studies were applicable for review. No correct side/site applicable for marking and visibility. Medications required for procedure verified. No fire risk assessment and interventions applicable. No implant(s) inserted. Sign Out: SIGN OUT (optional for EMERGENT procedures): All specimen containers correctly labeled. All instruments, equipment, possible retained foreign bodies accounted for. Post-procedure follow-up management communicated and Plan of Care Visit completed when applicable. Melissa Trivedi MA TRANS RECTAL UL (more content not included)... Normal [facility] SURGICAL PATHOLOGYon 025 CASE REPORT Normal [facility] Comment on above: Order Comment: Speci men Type: TISSUE SPECIMENOrdering Facility: [facility] Address: [address] [place] [address] Result Comment: Surg [facility] Pathology Report Case: [id number] Authorizing Provider: Ayan Jefferson Jr., Collected: 02/29/2024 01:21 PM Ordering Location: Urology Received: 03/01/2024 07:57 AM Pathologist: Shruthi Romo MD Specimens: A) - Prostate, Left, Base, Biopsy, 1 B) - Prostate, Left, Mid, Biopsy, 1 C) - Prostate, Left, [place], Biopsy, 1 D) - Prostate, Left, Lateral Base, Biopsy, 1 E) - Prostate, Left, Lateral Mid, Biopsy, 1 F) - Prostate, Left, Lateral [place] , Biopsy, 1 G) - Prostate, Right, Base, Biopsy, 1 H) - Prostate, Right, Mid, Biopsy, 1 I) - Prostate, Right, [place], Biopsy, 1 J) - Prostate, Right, Lateral Base, Biopsy, 1 K) - Prostate, Right, Lateral Mid, Biopsy, 1 L) - Prostate, Right, Lateral [place], Biopsy, 1 Performed By: #### S ####[facility] LABCLIA [id number] [place] [address] [place] CLINICAL HISTORY PROSTATE BIOPSY Normal [facility] Comment on above: Order Comment: Speci men Type: TISSUE SPECIMENOrdering Facility: [facility] Address: [address] [place] [address] Performed By: #### S ####[facility] LABCLIA [id number] [place] [address] [place] DIAGNOSIS COMMENT Normal [facility] Comment on above: Order Comment: Speci men Type: TISSUE SPECIMENOrdering Facility: [facility] Address: [address] [place] [address] Result Comment: Part s J and K were shown at the consensus conference on 03/02/[address] Daniela Foster, Truong Rangel, William Weir, Bandar Kaufman in attendance, who all concur with the diagnosis. Performed By: #### S ####[facility] LABCLIA [id number] [id number] [place] FINAL DIAGNOSIS Normal [facility] Comment on above: Order Comment: Speci men Type: TISSUE SPECIMENOrdering Facility: [facility] Address: [address] [place] [address] Result Comment: A. P rostate, left base, core biopsy: - Prostatic adenocarcinoma, Eugene score 3+3=6 (Grade Group 1), involving 1 of 1 core (1 mm, 5%). B. Prostate, left mid, core biopsy: - Atypical small acinar proliferation adjacent to high-grade prostatic intraepithelial neoplasia (PIN), suspicious for adenocarcinoma but cannot exclude ???outpouchings??? of high-grade PIN. C. Prostate, left apex, core biopsy: - Prostatic adenocarcinoma, Eugene score 3+3=6 (Grade Group 1), involving 1 of 1 core (4 mm, 30%). D. Prostate, left lateral base, core biopsy: - High-grade prostatic intraepithelial neoplasia (PIN). E. Prostate, left lateral mid, core biopsy: - Prostatic adenocarcinoma, Eugene score 3+3=6 (Grade Group 1), involving 1 of 1 core (1 mm, 5%). F. Prostate, left lateral apex, core biopsy: - Benign prostatic tissue. G. Prostate, right base, core biopsy: - Benign prostatic tissue. H. Prostate, right mid, core biopsy: - Prostatic adenocarcinoma, Eugene score 3+3=6 (Grade Group 1), involving 1 of 1 core (<1 mm, 5%). I. Prostate, right apex, core biopsy: - Benign prostatic tissue. J. Prostate, right lateral base, core biopsy: - Prostatic adenocarcinoma, Eugene score 3+4=7 (Grade Group 2), involving 1 of 1 core (discontinuous 8 mm, 45%). - Percentage of Mabscott pattern 4 = 40%. K. Prostate, right lateral mid, core biopsy: - Prostatic adenocarcinoma, Eugene score 3+4=7 (Grade Group 2), involving 1 of 1 core (1 mm, 5%). - Percentage of Mabscott pattern 4 = 30%. L. Prostate, right lateral apex, core biopsy: - Prostatic adenocarcinoma, Mabscott score 3+3=6 (Grade Group 1), involving 1 of 1 core (discontinuous 13 mm, 70%). Prostate Cancer Biopsy Summary Number of cores examined: 12 Number of cores positive: 7 Highest Grade Group: 2 Highest % of core involvement: 70% (discontinuous 13 mm) Unfavorable histology: Present (Less than 10%) Borderline histology: Not applicable Large cribriform pattern 4: Absent Intraductal carcinoma: Absent Block for additional biomarkers/molecular studies: J1 Performed By: #### S ####[facility] LABCLIA [id number] [place] [address] [place] FINAL PERFORMING LAB Normal [facility] Comment on above: Order Comment: Speci men Type: TISSUE SPECIMENOrdering Facility: [facility] Address: [address] [place] [address] Result Comment: Diag nostic interpretation performed at: [facility], [address] [place] [address] CLIA# [id number] [place]per[place] Estimator: Ghassan Howard MD Performed By: #### S ####[facility] LABCLIA [id number] [address] STATES [facility] GROSS DESCRIPTION Normal [facility] Comment on above: Order Comment: Speci men Type: TISSUE SPECIMENOrdering Facility: [facility] Address: [address] [place] [address] Result Comment: A. P rostate, Left, Base, Biopsy Received in formalin on a sponge is one piece of cylindrical tissue measuring 2.2 x 0.1 x 0.1 cm, lozoya and of a soft and friable consistency. Totally submitted in one cassette. B. Prostate, Left, Mid, Biopsy Received in formalin on a sponge is one piece of cylindrical tissue measuring 1.6 x 0.1 x 0.1 cm, lozoya and of a soft and friable consistency. Totally submitted in one cassette. C. Prostate, Left, [place], Biopsy Received in formalin on a sponge is one piece of cylindrical tissue measuring 1.7 x 0.1 x 0.1 cm, lozoya and of a soft and friable consistency. Totally submitted in one cassette. D. Prostate, Left, Lateral Base, Biopsy Received in formalin on a sponge is one piece of cylindrical tissue measuring 1.8 x 0.1 x 0.1 cm, lozoya and of a soft and friable consistency. Totally submitted in one cassette. E. Prostate, Left, Lateral Mid, Biopsy Received in formalin on a sponge is one piece of cylindrical tissue measuring 2.2 x 0.1 x 0.1 cm, lozoya and of a soft and friable consistency. Totally submitted in one cassette. F. Prostate, Left, Lateral [place] , Biopsy Received in formalin on a sponge is one piece of cylindrical tissue measuring 1.3 x 0.1 x 0.1 cm, lozoya and of a soft and friable consistency. Totally submitted in one cassette. G. Prostate, Right, Base, Biopsy Received in formalin on a sponge is one piece of cylindrical tissue measuring 0.7 x 0.1 x 0.1 cm, lozoya and of a soft and friable consistency. Totally submitted in one cassette. H. Prostate, Right, Mid, Biopsy Received in formalin on a sponge is one piece of cylindrical tissue measuring 2.4 x 0.1 x 0.1 cm, lozoya and of a soft and friable consistency. Totally submitted in one cassette. I. Prostate, Right, [place], Biopsy Received in formalin on a sponge is one piece of cylindrical tissue measuring 1.4 x 0.1 x 0.1 cm, lozoya and of a soft and friable consistency. Totally submitted in one cassette. J. Prostate, Right, Lateral Base, Biopsy Received in formalin on a sponge is one piece of cylindrical tissue measuring 1.9 x 0.1 x 0.1 cm, lozoya and of a soft and friable consistency. Totally submitted in one cassette. K. Prostate, Right, Lateral Mid, Biopsy Received in formalin on a sponge is one piece of cylindrical tissue measuring 2.0 x 0.1 x 0.1 cm, lozoya and of a soft and friable consistency. Totally submitted in one cassette. L. Prostate, Right, Lateral [place], Biopsy Received in formalin on a sponge is one piece of cylindrical tissue measuring 1.8 x 0.1 x 0.1 cm, lozoya and of a soft and friable consistency. Totally submitted in one cassette. Gross examination performed at [facility], [address] [facility], [place] [address] AMS March 01, 2024 11:13 AM Performed By: #### S ####[facility] LABCLIA [id number] [facility] [id number] [id number] [place] UA DIP, URINE (POC)on 2024 BILIRUBIN UA (POCT) Negative Negative [facility] CLARITY UA (POCT) Clear [facility] COLOR UA (POCT) Yellow [facility] GLUCOSE UA (POCT) >=1000 Abnormal Negative mg/dL [facility] Hemoglobin Ql (U) Negative Negative [facility] Interpretation and review of laboratory results Abnormal [facility] KETONE UA (POCT) Negative Negative mg/dL [facility] LEUKOCYTES UA (POCT) Negative Negative [facility] NITRITE UA (POCT) Negative Negative [facility] PH UA (POCT) 7.0 4.5 - 8.0 [facility] Protein Ql (U) Negative Negative mg/dL [facility] SPECIFIC GRAVITY UA (POCT) 1.020 1.005 - 1.030 [facility] UROBILINOGEN UA (POCT) 0.2 Normal E.U./dL [facility] Location:[facility], [address], [place], [id number] [place] [address] POINT OF CARE [facility] US PROSTATE BIOPSY (POC) GUK I USE ONLYon 02-29-2024 [facility] Tello 12-16-2023 CNPN Telephone (UROLAE) VICTOR HUGO SHETH ([id number]) 1950 M Date Time Provider Department 12/16/23 AYAN JEFFERSON JR During your visit today, we recorded the following information about you: Jennie Smith 12/16/2023 8:18 AM Signed Patient wanted to reschedule his biopsy to [place] in February of next year. Scheduled for 02/29/2024. Please advise for his antibiotic prior to appointment. Guillermo Mattson MA 12/16/2023 8:47 AM Signed Nathalia or Ignacio, Any word on if you guys are getting a new ultra sound or getting yours fixed by then? ANA Juan John, GARRETT 12/16/2023 10:33 AM Signed We will be fine by then. Our machine is back in working order. Nathalia Gutierrez RN 12/16/2023 3:47 PM Signed Antibiotics stocked in office for patient. Closing. Allergies As of Date: 12/16/2023 Noted Allergy Reaction RYBELSUS (SEMAGLUTIDE) 04/16/2021 6 - Diarrhea Date Reviewed: 11/23/2023 Reviewed by: Dolores Castano LPN - Fully Assessed Reason for Visit: Patient Update [1234] Prescriptions as of 12/16/2023 - SITagliptin phosphate (JANUVIA) 100 mg tablet Take 1 tablet by mouth once daily. - lisinopril (ZESTRIL) 10 mg tablet Take 1 tablet by mouth once daily. - empagliflozin (JARDIANCE) 25 mg tablet Take 1 tablet by mouth daily with breakfast. - clopidogrel (PLAVIX) 75 mg tablet Take 1 tablet by mouth once daily. - metoprolol succinate ER (TOPROL XL) 25 mg 24 hr tablet Take 1 tablet by mouth once daily. - glimepiride (AMARYL) 4 mg tablet Take 1 tablet by mouth two times a day with meals. - atorvastatin (LIPITOR) 80 mg tablet Take 1 tablet by mouth daily at bedtime. - metFORMIN (GLUCOPHAGE) 1,000 mg tablet Take 1 tablet by mouth two times a day with meals. - ferrous sulfate (SLOW FE) 137 mg (45 mg iron) TbER Take one tab every over day with your Vit C tab - ascorbic acid, vitamin C, (VITAMIN C) 500 mg tablet Take one every other day with your iron tab. - blood sugar diagnostic (BLOOD GLUCOSE TEST) test strip Test blood sugar(s) 2 times daily. Dx: Other DM Code E11.42 Insulin: No - albuterol HFA (PROVENTIL HFA, VENTOLIN HFA) 90 mcg/actuation inhaler Inhale 2 Puffs as instructed every 4 hours as needed. - Lancets lancets Test blood sugar(s) 2 times daily. Dx: Other DM Code E11.42 Insulin: No - Blood-Glucose Meter Test Blood Sugars 2 times daily Dx E11.42 Insulin: No - flash glucose sensor (FREESTYLE ADRIAN 10 DAY SENSOR) kit 1 Each one time a week. Check blood sugar twice a day - flash glucose scanning reader (FREESTYLE ADRIAN 10 DAY READER) 1 Device twice daily. Check blood sugar twice a day Problem List As Of Date 12/16/2023 Noted Resolved Mixed hyperlipidemia [E78.2] 09/13/2012 Depression with anxiety [F41.8] Neck pain [M54.2] 10/04/2013 Carpal tunnel syndrome of right wrist [G56.01] 10/27/2013 DDD (degenerative disc disease), cervical [M50.* CAD (coronary artery disease), [place] coronary *05/14/2014 Ischemic cardiomyopathy [I25.5] 05/25/2014 Presence of drug coated stent in LAD coronary a*05/25/2014 Combined senile cataract [H25.819] 10/12/2014 06/10/2017 Vitreous floaters of both eyes [H43.393] 10/12/2014 Type 2 diabetes mellitus without retinopathy (H*10/12/2014 Tachycardia [R00.0] 10/30/2014 Chronic systolic congestive heart failure (HCC)*03/13/2015 Gastroesophageal reflux disease without esophag*03/13/2015 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] 03/13/2015 Smoker [F17.200] 03/13/2015 Diabetic eye exam (HCC) [Z01.00, E11.9] 05/15/2015 Uncontrolled type 2 diabetes mellitus with hype*07/18/2015 Type 2 diabetes mellitus with diabetic neuropat*11/20/2015 Combined forms of age-related cataract, bilater*06/15/2016 Screening for colon cancer [Z12.11] 12/29/2016 Obesity, Class II, BMI 35-39.9 [E66.812] 05/13/2017 Prostate disorder [N42.9] 11/03/2017 Encounter for Medicare annual wellness exam [Z0*11/17/2017 Combined forms of age-related cataract of both *06/15/2016 Essential hypertension [I10] 09/19/2018 Elevated PSA [R97.20] 01/26/2019 Medication management [Z79.899] 07/24/2019 Iron deficiency anemia [D50.9] 09/26/2019 DDD (degenerative disc disease), lumbar [M51.36*12/07/2019 Arthritis of both knees [M17.0] 12/12/2019 Corneal scar, 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] 07/18/2020 Dry eye syndrome of both eyes [H04.123] 07/18/[address] [Z78.9] 10/22/2021 Advance directive discussed with patient [Z71.8*10/22/2021 Encounter Status:Closed by JENNIE SMITH on 12/16/23 [facility] CNPFlor 12-07-2023 CNPN Telephone (UROLAE) VICTOR HUGO SHETH ([id number]) 1950 M Date Time Provider Department 12/07/23 AYAN JEFFERSON JR UROLAE During your visit today, we recorded the following information about you: Araceli Sanchez MA 12/07/2023 10:44 AM Signed Pt called to confirm appt with Dr Jefferson/appt confirmed by office/01/13/24 Araceli Sanchez MA Allergies As of Date: 12/07/2023 Noted Allergy Reaction RYBELSUS (SEMAGLUTIDE) 04/16/2021 6 - Diarrhea Date Reviewed: 11/23/2023 Reviewed by: Dolores Castano LPN - Fully Assessed Reason for Visit: Patient Question [2607] Prescriptions as of 12/07/2023 - SITagliptin phosphate (JANUVIA) 100 mg tablet Take 1 tablet by mouth once daily. - lisinopril (ZESTRIL) 10 mg tablet Take 1 tablet by mouth once daily. - empagliflozin (JARDIANCE) 25 mg tablet Take 1 tablet by mouth daily with breakfast. - clopidogrel (PLAVIX) 75 mg tablet Take 1 tablet by mouth once daily. - metoprolol succinate ER (TOPROL XL) 25 mg 24 hr tablet Take 1 tablet by mouth once daily. - glimepiride (AMARYL) 4 mg tablet Take 1 tablet by mouth two times a day with meals. - atorvastatin (LIPITOR) 80 mg tablet Take 1 tablet by mouth daily at bedtime. - metFORMIN (GLUCOPHAGE) 1,000 mg tablet Take 1 tablet by mouth two times a day with meals. - ferrous sulfate (SLOW FE) 137 mg (45 mg iron) TbER Take one tab every over day with your Vit C tab - ascorbic acid, vitamin C, (VITAMIN C) 500 mg tablet Take one every other day with your iron tab. - blood sugar diagnostic (BLOOD GLUCOSE TEST) test strip Test blood sugar(s) 2 times daily. Dx: Other DM Code E11.42 Insulin: No - albuterol HFA (PROVENTIL HFA, VENTOLIN HFA) 90 mcg/actuation inhaler Inhale 2 Puffs as instructed every 4 hours as needed. - Lancets lancets Test blood sugar(s) 2 times daily. Dx: Other DM Code E11.42 Insulin: No - Blood-Glucose Meter Test Blood Sugars 2 times daily Dx E11.42 Insulin: No - flash glucose sensor (FREESTYLE ADRIAN 10 DAY SENSOR) kit 1 Each one time a week. Check blood sugar twice a day - flash glucose scanning reader (FREESTYLE ADRIAN 10 DAY READER) 1 Device twice daily. Check blood sugar twice a day Problem List As Of Date 12/07/2023 Noted Resolved Mixed hyperlipidemia [E78.2] 09/13/2012 Depression with anxiety [F41.8] Neck pain [M54.2] 10/04/2013 Carpal tunnel syndrome of right wrist [G56.01] 10/27/2013 DDD (degenerative disc disease), cervical [M50.* CAD (coronary artery disease), [place] coronary *05/14/2014 Ischemic cardiomyopathy [I25.5] 05/25/2014 Presence of drug coated stent in LAD coronary a*05/25/2014 Combined senile cataract [H25.819] 10/12/2014 06/10/2017 Vitreous floaters of both eyes [H43.393] 10/12/2014 Type 2 diabetes mellitus without retinopathy (H*10/12/2014 Tachycardia [R00.0] 10/30/2014 Chronic systolic congestive heart failure (HCC)*03/13/2015 Gastroesophageal reflux disease without esophag*03/13/2015 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] 03/13/2015 Smoker [F17.200] 03/13/2015 Diabetic eye exam (HCC) [Z01.00, E11.9] 05/15/2015 Uncontrolled type 2 diabetes mellitus with hype*07/18/2015 Type 2 diabetes mellitus with diabetic neuropat*11/20/2015 Combined forms of age-related cataract, bilater*06/15/2016 Screening for colon cancer [Z12.11] 12/29/2016 Obesity, Class II, BMI 35-39.9 [E66.812] 05/13/2017 Prostate disorder [N42.9] 11/03/2017 Encounter for Medicare annual wellness exam [Z0*11/17/2017 Combined forms of age-related cataract of both *06/15/2016 Essential hypertension [I10] 09/19/2018 Elevated PSA [R97.20] 01/26/2019 Medication management [Z79.899] 07/24/2019 Iron deficiency anemia [D50.9] 09/26/2019 DDD (degenerative disc disease), lumbar [M51.36*12/07/2019 Arthritis of both knees [M17.0] 12/12/2019 Corneal scar, 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] 07/18/2020 Dry eye syndrome of both eyes [H04.123] 07/18/[address] [Z78.9] 10/22/2021 Advance directive discussed with patient [Z71.8*10/22/2021 Encounter Status:Closed by ARACELI SANCHEZ on 12/07/23 [facility] CNPFlor 11-29-2023 CNPN Telephone (UROLST) VICTOR HUGO SHETH ([id number]) 1950 M Date Time Provider Department 11/29/23 BRADY MARTINEZ UROLSMaya During your visit today, we recorded the following information about you: Brady Martinez PA-C 11/29/2023 6:30 PM Signed Please notify patient that his IsoPSA came back at 6.3 % and a PSA of 5.86 The IsoPSA being greater than 6.1% indicates there is a risk of high grade prostate cancer in the next 10 years So a prostate biopsy is recommended. Orders have been placed for biopsy if he wished to have biopsy I will arrange procedure with staff Urologist If he wishes to discuss results I am happy to discuss at visit. ROBERT Augustine MT, PA-C Clay, Kimberly, LPN 11/30/2023 9:44 AM Signed Called patient- no answer. Left message to call clinic for results/recommendations. ANIRUDH Gonzalez Kimberly, LPN 12/01/2023 2:33 PM Signed Called patient- no answer. Left message to call clinic for results/recommendations. ANIRUDH Gonzalez Laurie, MA 12/02/2023 11:47 AM Signed Pt called back. He was given results and would like to go ahead and schedule the biopsy. Please place orders and route to scheduling. He will await their call. ANA Stark Brandon, PA-C 12/03/2023 9:35 AM Signed Patient with elevated PSA and abnormal IsoPSA of 6.3% Needs a prostate biopsy, orders placed current Blood thinner Plavix Patient # [phone] (Home Phone) ROBERT Augustine MT, PA-C Ohara Clerk, Linda 12/03/2023 12:04 PM Addendum Left pt vm re: needs scheduled for prostate bx with Dr. Jefferson. Ref by Kendell Martinez for elev PSA. Kira Jefferson Ayan Lou Jr., MD 12/03/2023 10:04 AM Signed Can schedule with me Lilliana Ceron 12/06/2023 1:29 PM Signed Left pt second message re: scheduling his prostate bx with Dr. Jefferson. Angelita Soto 12/07/2023 10:42 AM Signed Spoke to patient Patient is scheduled January 13, 2024 at 2:30pm, [facility] location Patient agrees and understands Thank you Angelita Allergies As of Date: 11/29/2023 Noted Allergy Reaction RYBELSUS (SEMAGLUTIDE) 04/16/2021 6 - Diarrhea Date Reviewed: 11/23/2023 Reviewed by: Dolores Castano LPN - Fully Assessed Reason for Visit: Results [95] Appointment [186] Primary Visit Diagnosis:Elevated prostate specific antigen (PSA) [R97.20] Order(s):PROSTATE BIOPSY FRANKLIN [[id number]] Order #: [id number] Prescriptions as of 12/07/2023 - SITagliptin phosphate (JANUVIA) 100 mg tablet Take 1 tablet by mouth once daily. - lisinopril (ZESTRIL) 10 mg tablet Take 1 tablet by mouth once daily. - empagliflozin (JARDIANCE) 25 mg tablet Take 1 tablet by mouth daily with breakfast. - clopidogrel (PLAVIX) 75 mg tablet Take 1 tablet by mouth once daily. - metoprolol succinate ER (TOPROL XL) 25 mg 24 hr tablet Take 1 tablet by mouth once daily. - glimepiride (AMARYL) 4 mg tablet Take 1 tablet by mouth two times a day with meals. - atorvastatin (LIPITOR) 80 mg tablet Take 1 tablet by mouth daily at bedtime. - metFORMIN (GLUCOPHAGE) 1,000 mg tablet Take 1 tablet by mouth two times a day with meals. - ferrous sulfate (SLOW FE) 137 mg (45 mg iron) TbER Take one tab every over day with your Vit C tab - ascorbic acid, vitamin C, (VITAMIN C) 500 mg tablet Take one every other day with your iron tab. - blood sugar diagnostic (BLOOD GLUCOSE TEST) test strip Test blood sugar(s) 2 times daily. Dx: Other DM Code E11.42 Insulin: No - albuterol HFA (PROVENTIL HFA, VENTOLIN HFA) 90 mcg/actuation inhaler Inhale 2 Puffs as instructed every 4 hours as needed. - Lancets lancets Test blood sugar(s) 2 times daily. Dx: Other DM Code E11.42 Insulin: No - Blood-Glucose Meter Test Blood Sugars 2 times daily Dx E11.42 Insulin: No - flash glucose sensor (FREESTYLE ADRIAN 10 DAY SENSOR) kit 1 Each one time a week. Check blood sugar twice a day - flash glucose scanning reader (FREESTYLE ADRIAN 10 DAY READER) 1 Device twice daily. Check blood sugar twice a day Problem List As Of Date 11/29/2023 Noted Resolved Mixed hyperlipidemia [E78.2] 09/13/2012 Depression with anxiety [F41.8] Neck pain [M54.2] 10/04/2013 Carpal tunnel syndrome of right wrist [G56.01] 10/27/2013 DDD (degenerative disc disease), cervical [M50.* CAD (coronary artery disease), [place] coronary *05/14/2014 Ischemic cardiomyopathy [I25.5] 05/25/2014 Presence of drug coated stent in LAD coronary a*05/25/2014 Combined senile cataract [H25.819] 10/12/2014 06/10/2017 Vitreous floaters of both eyes [H43.393] 10/12/2014 Type 2 diabetes mellitus without retinopathy (H*10/12/2014 Tachycardia [R00.0] 10/30/2014 Chronic systolic congestive heart failure (HCC)*03/13/2015 Gastroesophageal reflux disease without esophag*03/13/2015 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 Normal [facility] UA DIP, URINE (POC)on 2023 BILIRUBIN UA (POCT) Negative Negative [facility] CLARITY UA (POCT) Clear [facility] COLOR UA (POCT) Yellow [facility] [facility] GLUCOSE UA (POCT) 500 mg/dL Abnormal Negative [facility] Hemoglobin Ql (U) Negative Negative [facility] Interpretation and review of laboratory results Abnormal [facility] KETONE UA (POCT) Negative Negative mg/dL [facility] LEUKOCYTES UA (POCT) Negative Negative [facility] NITRITE UA (POCT) Negative Negative [facility] PH UA (POCT) 5.5 4.5 - 8.0 [facility] Protein Ql (U) Negative Negative mg/dL [facility] SPECIFIC GRAVITY UA (POCT) 1.020 1.005 - 1.030 [facility] UROBILINOGEN UA (POCT) 0.2 Normal E.U./dL [facility] Location:[facility], [address], [place], [place], [id number] [place] [address] POINT OF CARE [facility] CBC W Auto Differential pane l (Bld)on 08-20-2023 Basophils (Bld) [#/Vol] 0.03 10*3/uL [facility] Basophils/100 WBC (Bld) 0.3 % [facility] Differential cell count method Nom (Bld) Auto [facility] Eosinophils (Bld) [#/Vol] 0.32 10*3/uL [facility] Eosinophils/100 WBC (Bld) 3.3 % [facility] Erythrocyte distribution width (RBC) [Ratio] 14.4 % 11.5 - 15.0 % [facility] Hematocrit (Bld) [Volume fraction] 45.2 % 39.0 - 51.0 % [facility] Hemoglobin (Bld) [Mass/Vol] 14.6 g/dL 13.0 - 17.0 g/dL [facility] Immature granulocytes (Bld) [#/Vol] [facility] Immature granulocytes/100 WBC (Bld) 0.2 % [facility] Lymphocytes (Bld) [#/Vol] 2.42 10*3/uL [facility] Lymphocytes/100 WBC (Bld) 24.8 % [facility] MCH (RBC) [Entitic mass] 29.0 pg 26.0 - 34.0 pg [facility] MCHC (RBC) [Mass/Vol] 32.3 g/dL 30.5 - 36.0 g/dL [facility] MCV (RBC) [Entitic vol] 89.9 fL 80.0 - 100.0 fL [facility] Monocytes (Bld) [#/Vol] 0.81 10*3/uL [facility] Monocytes/100 WBC (Bld) 8.3 % [facility] Neutrophils (Bld) [#/Vol] 6.16 10*3/uL [facility] Neutrophils/100 WBC (Bld) 63.1 % [facility] Nucleated RBC (Bld) [#/Vol] NINF [facility] Nucleated RBC/100 WBC (Bld) [Ratio] 0.0 % /100 WBC [facility] Platelet mean volume (Bld) [Entitic vol] 9.1 fL 9.0 - 12.7 fL [facility] Platelets (Bld) [#/Vol] 397 10*3/uL [facility] RBC (Bld) [#/Vol] 5.03 10*6/uL 4.20 - 6.0 0 m/uL [facility] WBC (Bld) [#/Vol] 9.76 10*3/uL [facility] Comprehensive metabolic 2000 panelOrdered By: Samantha Leahy on 08-20-2023 Albumin [Mass/Vol] 4.4 g/dL 3.9 - 4.9 g/dL [facility] ALP [Catalytic activity/Vol] 119 U/L High 38 - 113 U/L [facility] ALT [Catalytic activity/Vol] 16 U/L 10 - 54 U/L [facility] Anion gap [Moles/Vol] 13 mmol/L 8 - 15 mmol/L [facility] AST [Catalytic activity/Vol] 15 U/L 14 - 40 U/L [facility] Bilirubin [Mass/Vol] 0.4 mg/dL 0.2 - 1 .3 mg/dL [facility] Calcium [Mass/Vol] 9.7 mg/dL 8.5 - 10. 2 mg/dL [facility] Chloride [Moles/Vol] 99 mmol/L 98 - 10 7 mmol/L [facility] CO2 [Moles/Vol] 23 mmol/L 22 - 30 mmol/L [facility] Creatinine [Mass/Vol] 0.91 mg/dL 0.73 - 1.22 mg/dL [facility] GFR/1.73 sq M.predicted among non-blacks MDRD (S/P/Bld) [Vol rate/Area] 90 mL/min/{1.73_m2} - PINF [facility] Comment on above: Estimated Glomerular Filtration Rate (eGFR) is calculated using the 2020 CKD-EPI creatinine equation. This equation utilizes serum creatinine, sex, and age as parameters. The creatinine assay has traceable calibration to isotope dilution-mass spectrometry. Refer to KDIGO guidelines for clinical interpretation. In patients with unstable renal function, e.g. those with acute kidney injury, the eGFR may not accurately reflect actual GFR. Glucose [Mass/Vol] 146 mg/dL High 74 - 99 mg/dL [facility] Comment on above: The [place] Diab[employer] Association (ADA) provides guidance for cutoff values for fasting glucose and random glucose. The ADA defines fasting as no caloric intake for at least 8 hours. Fasting plasma glucose results between 100 to 125 mg/dL indicate increased risk for diabetes (prediabetes). Fasting plasma glucose results greater than or equal to 126 mg/dL meet the criteria for diagnosis of diabetes. In the absence of unequivocal hyperglycemia, results should be confirmed by repeat testing. In a patient with classic symptoms of hyperglycemia or hyperglycemic crisis, random plasma glucose results greater than or equal to 200 mg/dL meet the criteria for diagnosis of diabetes. Reference: Standards of Medical Care in Diabetes 2016, [place] Diabetes Association. Diabetes Care. 2016.39(Suppl 1). Interpretation and review of laboratory results Abnormal [facility] Potassium [Moles/Vol] 4.4 mmol/L 3.7 - 5.1 mmol/L [facility] Protein [Mass/Vol] 7.0 g/dL 6.3 - 8.0 g/dL [facility] Sodium [Moles/Vol] 135 mmol/L Low 136 - 144 mmol/L [facility] Urea nitrogen [Mass/Vol] 22 mg/dL 9 - 24 mg/dL [facility] XR Knee - bilateral 4 Viewso n 12-12-2019 IMPRESSION: Bilateral knee degenerative arthritis. Biological Sciences Professor: [facility] Transcribe Date/Time: Dec 12 2019 2:52P Dictated by : JHONY JAY MD This examination was interpreted and the report reviewed and electronically signed by: JHONY JAY MD on Dec 12 2019 2:53PM [facility] DIVISION OF RADIOLOGY * * *Final Report* * * DATE OF EXAM: Dec 12 2019 2:38PM WOX [id number] - XR KNEE 4V AP/PA/LAT/MERCH ANGIE / PROCEDURE REASON: Acute pain of right knee * * * * Physician Interpretation * * * * HISTORY: Acute pain of right knee . pt states pain posterior right knee only for a month with no inj no complaints with the left. TECHNIQUE: XR KNEE 4V AP/PA/LAT/MERCH ANGIE Laterality: BILATERAL Number of different views (projections): 5 COMPARISON: None available. RESULT: There is no acute fracture or dislocation. There is bilateral knee degenerative arthritis with joint space narrowing and tricompartmental osteophytes. There is no evidence of right knee joint effusion. There is no soft tissue swelling. No other significant abnormality. DIVISION OF RADIOLOGY Provider, [facility] Carlos A [facility] - 12/12/2019 * * *Final Report* * * DATE OF EXAM: Dec 12 2019 2:38PM WOX [id number] - XR KNEE 4V AP/PA/LAT/MERCH ANGIE / PROCEDURE REASON: Acute pain of right knee * * * * Physician Interpretation * * * * HISTORY: Acute pain of right knee . pt states pain posterior right knee only for a month with no inj no complaints with the left. TECHNIQUE: XR KNEE 4V AP/PA/LAT/MERCH ANGIE Laterality: BILATERAL Number of different views (projections): 5 COMPARISON: None available. RESULT: There is no acute fracture or dislocation. There is bilateral knee degenerative arthritis with joint space narrowing and tricompartmental osteophytes. There is no evidence of right knee joint effusion. There is no soft tissue swelling. No other significant abnormality. IMPRESSION IMPRESSION: Bilateral knee degenerative arthritis. Biological Sciences Professor: EVELIA Transcribe Date/Time: Dec 12 2019 2:52P Dictated by : JHONY JAY MD This examination was interpreted and the report reviewed and electronically signed by: JHONY JAY MD on Dec 12 2019 2:53PM EST [facility] Radiology Study observation (narrative) [facility] XR Knee - bilateral 4 ViewsO rdered By: Cc Provider on 12-12-2019 [facility] XR Lumbar spine 3 Viewson IMPRESSION: Lumbar s pine degenerative changes as described above. Biological Sciences Professor: EVELIA Transcribe Date/Time: Dec 07 2019 1:05P Dictated by : CLARIBEL SHI MD This examination was interpreted and the report reviewed and electronically signed by: CLARIBEL SHI MD on Dec 07 2019 1:07PM [facility] DIVISION OF RADIOLOGY * * *Final Report* * * DATE OF EXAM: Dec 06 2019 6:05PM WOX [id number] - XR LUMBAR 3V AP/LAT/L5-S1 / PROCEDURE REASON: Sciatica of right side * * * * Physician Interpretation * * * * EXAM TITLE: XR LUMBAR 3V AP/LAT/L5-S1 EXAM DATE/TIME: 12/06/2019 6:05 PM COMPARISON: None. CLINICAL INDICATION/HISTORY: Back pain. TECHNIQUE: AP, lateral and cone down lateral views of the lumbar spine are presented. FINDINGS: There are five xiz-mbv-dvfrpps lumbar vertebrae. No acute fractures seen. There is a grade 1 L4 on L5 anterolisthesis. The disc spaces are well preserved. There is significant osteophyte formation, with facet arthrosis in the lower lumbar spine. There appears to be kissing spine. DIVISION OF RADIOLOGY Provider, [facility] - 12/07/2019 * * *Final Report* * * DATE OF EXAM: Dec 06 2019 6:05PM WOX [id number] - XR LUMBAR 3V AP/LAT/L5-S1 / PROCEDURE REASON: Sciatica of right side * * * * Physician Interpretation * * * * EXAM TITLE: XR LUMBAR 3V AP/LAT/L5-S1 EXAM DATE/TIME: 12/06/2019 6:05 PM COMPARISON: None. CLINICAL INDICATION/HISTORY: Back pain. TECHNIQUE: AP, lateral and cone down lateral views of the lumbar spine are presented. FINDINGS: There are five oxw-mzv-tremoez lumbar vertebrae. No acute fractures seen. There is a grade 1 L4 on L5 anterolisthesis. The disc spaces are well preserved. There is significant osteophyte formation, with facet arthrosis in the lower lumbar spine. There appears to be kissing spine. IMPRESSION IMPRESSION: Lumbar spine degenerative changes as described above. Biological Sciences Professor: EVELIA Transcribe Date/Time: Dec 07 2019 1:05P Dictated by : CLARIBEL SHI MD This examination was interpreted and the report reviewed and electronically signed by: CLARIBEL SHI MD on Dec 07 2019 1:07PM [facility] XR Lumbar spine 3 ViewsOrder ed By: Ccf Provider on 12-07-2019 [facility] XR Lumbar spine 3 Viewson Radiology Study observation (narrative) [facility] Vital Signs Date Time Vital Sign Value Performing Clinician Facility 10-30-2024 13:53-0400 Body height 170.2 cm Palmira Russell 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: [facility] 10-30-2024 13:53-0400 Body mass index (BMI) [Ratio] 35.65 kg/m2 Palmira Russell 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: [facility] 10-30-2024 13:53-0400 Body weight 103.24 kg Palmira Russell 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: [facility] 10-30-2024 13:53-0400 Diastolic blood pressure 80 mm[Hg] Palmira Russell 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: [facility] 10-30-2024 13:53-0400 Heart rate 104 /min Palmira Russell 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: [facility] 10-30-2024 13:53-0400 SaO2% (BldA) [Mass fraction] 96 % Palmira Russell 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: [facility] 10-30-2024 13:53-0400 Systolic blood pressure 138 mm[Hg] Palmira Russell 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: [facility] 10-30-2024 13:28-0400 Body height 170.2 cm Zo Bowden MD Work Phone: [facility] Comment on above: patient reports 10-30-2024 13:28-0400 Body mass index (BMI) [Ratio] 35.65 kg/m2 Zo Bowden MD Work Phone: [facility] 10-30-2024 13:28-0400 Body weight 103.24 kg Zo Bowden MD Work Phone: [facility] Comment on above: fully clothed with shoes on 10-30-2024 13:28-0400 Diastolic blood pressure 80 mm[Hg] Zo Bowden MD Work Phone: [facility] 10-30-2024 13:28-0400 Heart rate 104 /min Zo Bowden MD Work Phone: [facility] 10-30-2024 13:28-0400 SaO2% (BldA) [Mass fraction] 96 % Zo Bowden MD Work Phone: [facility] 10-30-2024 13:28-0400 Systolic blood pressure 138 mm[Hg] Zo Bowden MD Work Phone: [facility] 09-19-2024 15:10-0400 Body height 170.2 cm Ayan Jefferson Jr., MD Work Phone: [facility] 09-19-2024 15:10-0400 Body mass index (BMI) [Ratio] 35.71 kg/m2 Ayan Jefferson Jr., MD Work Phone: [facility] 09-19-2024 15:10-0400 Body weight 103.42 kg Ayan Jefferson Jr., MD Work Phone: [facility] 08-11-2024 14:44-0400 Body height 170.[address] Jorden Hartmann MD Work Phone: [facility] 08-11-2024 14:44-0400 Body temperature 97.8 [degF] Dr. Jorden Hartmann MD Work Phone: [facility] 08-11-2024 14:44-0400 Diastolic blood pressure 74 mm[Hg] Dr. Jorden Hartmann MD Work Phone: [facility] 08-11-2024 14:44-0400 Heart rate 101 /min Dr. Jorden Hartmann MD Work Phone: [facility] 08-11-2024 14:44-0400 Respiratory rate 16 /min Dr. Jorden Hartmann MD Work Phone: [facility] 08-11-2024 14:44-0400 SaO2% (BldA) [Mass fraction] 94 % Dr. Jorden Hartmann MD Work Phone: [facility] 08-11-2024 14:44-0400 Systolic blood pressure 130 mm[Hg] Dr. Jorden Hartmann MD Work Phone: [facility] 08-01-2024 14:26-0400 Body height 170.2 cm Monico Amaro MD Work Phone: [facility] 08-01-2024 14:26-0400 Body mass index (BMI) [Ratio] 35.56 kg/m2 Monico Amaro MD Work Phone: [facility] 08-01-2024 14:26-0400 Body weight 103 kg Monico Amaro MD Work Phone: [facility] 08-01-2024 14:26-0400 Diastolic blood pressure 68 mm[Hg] Monico Amaro MD Work Phone: [facility] 08-01-2024 14:26-0400 Heart rate 105 /min Monico Amaro MD Work Phone: [facility] 08-01-2024 14:26-0400 SaO2% (BldA) [Mass fraction] 96 % Monico Amaro MD Work Phone: [facility] 08-01-2024 14:26-0400 Systolic blood pressure 116 mm[Hg] Monico Amaro MD Work Phone: [facility] 07-04-2024 14:28-0400 Body height 170.[address] Jorden Hartmann MD Work Phone: [facility] 07-04-2024 14:28-0400 Body mass index (BMI) [Ratio] 34.7 kg/m2 Dr. Jorden Hartmann MD Work Phone: [facility] 07-04-2024 14:28-0400 Body weight 100.[address] Jorden Hartmann MD Work Phone: [facility] 06-02-2024 14:19-0400 Body mass index (BMI) [Ratio] 36.49 kg/m2 Hayley Gutierrez MD Work Phone: [facility] 06-02-2024 14:19-0400 Body temperature 97.2 [degF] Hayley Gutierrez MD Work Phone: [facility] 06-02-2024 14:19-0400 Body weight 105.69 kg Hayley Gutierrez MD Work Phone: [facility] 06-02-2024 14:19-0400 Diastolic blood pressure 78 mm[Hg] Hayley Gutierrez MD Work Phone: [facility] 06-02-2024 14:19-0400 Heart rate 113 /min Hayley Gutierrez MD Work Phone: [facility] 06-02-2024 14:19-0400 Respiratory rate 16 /min Hayley Gutierrez MD Work Phone: [facility] 06-02-2024 14:19-0400 SaO2% (BldA) [Mass fraction] 96 % Hayley Gutierrez MD Work Phone: [facility] 06-02-2024 14:19-0400 Systolic blood pressure 131 mm[Hg] Hayley Gutierrez MD Work Phone: [facility] 05-30-2024 14:25-0400 Body temperature 98.01 [degF] Hayley Gutierrez MD Work Phone: [facility] 05-30-2024 14:25-0400 Diastolic blood pressure 84 mm[Hg] Hayley Gutierrez MD Work Phone: [facility] 05-30-2024 14:25-0400 Heart rate 100 /min Hayley Gutierrez MD Work Phone: [facility] 05-30-2024 14:25-0400 SaO2% (BldA) [Mass fraction] 98 % Hayley Gutierrez MD Work Phone: [facility] 05-30-2024 14:25-0400 Systolic blood pressure 127 mm[Hg] Hayley Gutierrez MD Work Phone: [facility] 05-26-2024 11:23-0400 Body temperature 97.5 [degF] Dr. Jorden Hartmann MD Work Phone: [facility] 05-26-2024 11:23-0400 Body weight 102.[address] Jorden Hartmann MD Work Phone: [facility] 05-26-2024 11:23-0400 Diastolic blood pressure 87 mm[Hg] Dr. Jorden Hartmann MD Work Phone: [facility] 05-26-2024 11:23-0400 Heart rate 106 /min Dr. Jorden Hartmann MD Work Phone: [facility] 05-26-2024 11:23-0400 Respiratory rate 16 /min Dr. Jorden Hartmann MD Work Phone: [facility] 05-26-2024 11:23-0400 SaO2% (BldA) [Mass fraction] 93 % Dr. Jorden Hartmann MD Work Phone: [facility] 05-26-2024 11:23-0400 Systolic blood pressure 128 mm[Hg] Dr. Jorden Hartmann MD Work Phone: [facility] 05-24-2024 14:14-0400 Body temperature 97.59 [degF] Hayley Gutierrez MD Work Phone: [facility] 05-24-2024 14:14-0400 Diastolic blood pressure 80 mm[Hg] Hayley Gutierrez MD Work Phone: [facility] 05-24-2024 14:14-0400 Heart rate 120 /min Hayley Gutierrez MD Work Phone: [facility] Comment on above: pt reports he drinks 5-6 cups of strong coffee this am asked him to cut back and we will recheck 05-24-2024 14:14-0400 SaO2% (BldA) [Mass fraction] 100 % Hayley Gutierrez MD Work Phone: [facility] 05-24-2024 14:14-0400 Systolic blood pressure 123 mm[Hg] Hayley Gutierrez MD Work Phone: [facility] 05-16-2024 14:17-0400 Body temperature 99.9 [degF] Moo Mabry MD Work Phone: [facility] 05-16-2024 14:17-0400 Diastolic blood pressure 84 mm[Hg] Moo Mabry MD Work Phone: [facility] 05-16-2024 14:17-0400 Heart rate 121 /min Moo Mabry MD Work Phone: [facility] 05-16-2024 14:17-0400 Respiratory rate 20 /min Moo Mabry MD Work Phone: [facility] 05-16-2024 14:17-0400 SaO2% (BldA) [Mass fraction] 96 % Moo Mabry MD Work Phone: [facility] 05-16-2024 14:17-0400 Systolic blood pressure 130 mm[Hg] Moo Mabry MD Work Phone: [facility] 05-11-2024 15:29-0400 Diastolic blood pressure 74 mm[Hg] Dr. Jorden Hartmann MD Work Phone: [facility] 05-11-2024 15:29-0400 Heart rate 103 /min Dr. Jorden Hartmann MD Work Phone: [facility] 05-11-2024 15:29-0400 Respiratory rate 18 /min Dr. Jorden Hartmann MD Work Phone: [facility] 05-11-2024 15:29-0400 SaO2% (BldA) [Mass fraction] 92 % Dr. Jorden Hartmann MD Work Phone: [facility] 05-11-2024 15:29-0400 Systolic blood pressure 116 mm[Hg] Dr. Jorden Hartmann MD Work Phone: [facility] 05-09-2024 14:27-0400 Body temperature 99 [degF] Hayley Gutierrez MD Work Phone: [facility] 05-09-2024 14:27-0400 Diastolic blood pressure 81 mm[Hg] Hayley Gutierrez MD Work Phone: [facility] 05-09-2024 14:27-0400 Heart rate 110 /min Hayley Gutierrez MD Work Phone: [facility] Comment on above: manual, he states it runs high 05-09-2024 14:27-0400 SaO2% (BldA) [Mass fraction] 97 % Hayley Gutierrez MD Work Phone: [facility] 05-09-2024 14:27-0400 Systolic blood pressure 128 mm[Hg] Hayley Gutierrez MD Work Phone: [facility] 05-02-2024 14:14-0400 Body mass index (BMI) [Ratio] 37.31 kg/m2 Hayley Gtuierrez MD Work Phone: [facility] 05-02-2024 14:14-0400 Body temperature 99.19 [degF] Hayley Gutierrez MD Work Phone: [facility] 05-02-2024 14:14-0400 Body weight 108.05 kg Hayley Gutierrez MD Work Phone: [facility] 05-02-2024 14:14-0400 Diastolic blood pressure 83 mm[Hg] Hayley Gutierrez MD Work Phone: [facility] 05-02-2024 14:14-0400 Heart rate 107 /min Hayley Gutierrez MD Work Phone: [facility] 05-02-2024 14:14-0400 Respiratory rate 22 /min Hayley Gutierrez MD Work Phone: [facility] 05-02-2024 14:14-0400 SaO2% (BldA) [Mass fraction] 98 % Hayley Gutierrez MD Work Phone: [facility] 05-02-2024 14:14-0400 Systolic blood pressure 135 mm[Hg] Hayley Gutierrez MD Work Phone: [facility] 04-20-2024 15:44-0500 Body height 170.[address] Jorden Hartmann MD Work Phone: 3(005)936-881498 [place] [address] 04-20-2024 15:44-0500 Body mass index (BMI) [Ratio] 36.8 kg/m2 Dr. Jorden Hartmann MD Work Phone: 5(362)243-244098 [place] [address] 04-20-2024 15:44-0500 Body temperature 97.9 [degF] Dr. Jorden Hartmann MD Work Phone: 7(322)636-805898 [place] [address] 04-20-2024 15:44-0500 Body weight 106.[address] Jorden Hartmann MD Work Phone: 6(447)314-054498 [place] [address] 04-20-2024 15:44-0500 Diastolic blood pressure 85 mm[Hg] Dr. Jorden Hartmann MD Work Phone: 5(568)136-956798 [place] [address] 04-20-2024 15:44-0500 Heart rate 114 /min Dr. Jorden Hartmann MD Work Phone: 3(316)058-839998 [place] [address] 04-20-2024 15:44-0500 Respiratory rate 18 /min Dr. Jorden Hartmann MD Work Phone: 4(637)904-943298 [place] [address] 04-20-2024 15:44-0500 SaO2% (BldA) [Mass fraction] 91 % Dr. Jorden Hartmann MD Work Phone: 0([phone])[phone] [place] [address] 04-20-2024 15:44-0500 Systolic blood pressure 147 mm[Hg] Dr. Jorden Hartmann MD Work Phone: 1(645)833-292098 [place] [address] 03-23-2024 13:45-0500 Body mass index (BMI) [Ratio] 36.65 kg/m2 Hayley Gutierrez MD Work Phone: [facility] 03-23-2024 13:45-0500 Body temperature 97 [degF] Hayley Gutierrez MD Work Phone: [facility] 03-23-2024 13:45-0500 Body weight 106.14 kg Hayley Gutierrez MD Work Phone: [facility] 03-23-2024 13:45-0500 Diastolic blood pressure 84 mm[Hg] Hayley Gutierrez MD Work Phone: [facility] 03-23-2024 13:45-0500 Heart rate 99 /min Hayley Gutierrez MD Work Phone: [facility] 03-23-2024 13:45-0500 Respiratory rate 16 /min Hayley Gutierrez MD Work Phone: [facility] 03-23-2024 13:45-0500 SaO2% (BldA) [Mass fraction] 97 % Hayley Gutierrez MD Work Phone: [facility] 03-23-2024 13:45-0500 Systolic blood pressure 131 mm[Hg] Hayley Gutierrez MD Work Phone: [facility] 03-17-2024 13:14-0500 Body temperature 98.6 [degF] Debora Martinez PA-C Work Phone: [facility] 03-17-2024 13:14-0500 Diastolic blood pressure 70 mm[Hg] Debora Martinez PA-C Work Phone: [facility] 03-17-2024 13:14-0500 Heart rate 120 /min Debora Martinez PA-C Work Phone: [facility] 03-17-2024 13:14-0500 Respiratory rate 18 /min Deboratarik Martinez PA-C Work Phone: [facility] 03-17-2024 13:14-0500 SaO2% (BldA) [Mass fraction] 97 % Debora Martinez PA-C Work Phone: [facility] 03-17-2024 13:14-0500 Systolic blood pressure 130 mm[Hg] Debora Martinez PA-C Work Phone: [facility] 02-29-2024 12:49-0500 Body height 170.2 cm Ayan Jefferson Jr., MD Work Phone: [facility] 02-29-2024 12:49-0500 Body mass index (BMI) [Ratio] 35.4 kg/m2 Ayan Jefferson Jr., MD Work Phone: [facility] 02-29-2024 12:49-0500 Body weight 102.51 kg Ayan Jefferson Jr., MD Work Phone: [facility] 11-23-2023 16:07-0400 Body mass index (BMI) [Ratio] 35.24 kg/m2 Brady Martinez PA-C Work Phone: [facility] 11-23-2023 16:07-0400 Body temperature 97.3 [degF] Brady Martinez PA-C Work Phone: [facility] 11-23-2023 16:07-0400 Body weight 102.06 kg Brady Martinez PA-C Work Phone: [facility] 11-23-2023 16:07-0400 Diastolic blood pressure 74 mm[Hg] Brady Martinez PA-C Work Phone: [facility] 11-23-2023 16:07-0400 Heart rate 104 /min Brady Martinez PA-C Work Phone: [facility] 11-23-2023 16:07-0400 Respiratory rate 22 /min Brady Martinez PA-C Work Phone: [facility] 11-23-2023 16:07-0400 SaO2% (BldA) [Mass fraction] 97 % Brady Martinez PA-C Work Phone: [facility] 11-23-2023 16:07-0400 Systolic blood pressure 132 mm[Hg] Brady Martinez PA-C Work Phone: [facility] 12-03-2022 14:23-0400 Body weight 101.61 kg Shawnee Belle APRN.CNP Work Phone: [facility] 12-03-2022 14:23-0400 Diastolic blood pressure 80 mm[Hg] Shawnee Belle APRN.CNP Work Phone: [facility] 12-03-2022 14:23-0400 Heart rate 110 /min Shawnee Knoble DIRECTOR OF SCIENCE.CLEANING AND MAINTENANCE WORKER Work Phone: [facility] 12-03-2022 14:23-0400 Respiratory rate 18 /min Shawnee Belle DIRECTOR OF SCIENCE.CLEANING AND MAINTENANCE WORKER Work Phone: [facility] 12-03-2022 14:23-0400 Systolic blood pressure 138 mm[Hg] Shawnee Belle DIRECTOR OF SCIENCE.CLEANING AND MAINTENANCE WORKER Work Phone: [facility] 11-04-2022 14:29-0400 Body weight 102.51 kg Jorden Hartmann MD Work Phone: [facility] 11-04-2022 14:29-0400 Diastolic blood pressure 78 mm[Hg] Jorden Hartmann MD Work Phone: [facility] 11-04-2022 14:29-0400 Heart rate 86 /min Jorden Hartmann MD Work Phone: [facility] 11-04-2022 14:29-0400 Respiratory rate 18 /min Jorden Hartmann MD Work Phone: [facility] 11-04-2022 14:29-0400 Systolic blood pressure 128 mm[Hg] Jorden Hartmann MD Work Phone: [facility] 04-01-2022 17:57-0500 Body weight 99.79 kg Jorden Hartmann MD Work Phone: [facility] 04-01-2022 17:57-0500 Diastolic blood pressure 88 mm[Hg] Jorden Hartmann MD Work Phone: [facility] 04-01-2022 17:57-0500 Heart rate 84 /min Jorden Hartmann MD Work Phone: [facility] 04-01-2022 17:57-0500 Respiratory rate 18 /min Jorden Hartmann MD Work Phone: [facility] 04-01-2022 17:57-0500 Systolic blood pressure 122 mm[Hg] Jorden Hartmann MD Work Phone: [facility] 10-22-2021 16:38-0400 Body height 167.6 cm Jorden Hartmann MD Work Phone: [facility] 10-22-2021 16:38-0400 Body weight 95.71 kg Jorden Hartmann MD Work Phone: [facility] 10-22-2021 16:38-0400 Diastolic blood pressure 72 mm[Hg] Jorden Hartmann MD Work Phone: [facility] 10-22-2021 16:38-0400 Heart rate 86 /min Jorden Hartmann MD Work Phone: [facility] 10-22-2021 16:38-0400 Respiratory rate 18 /min Jorden Hartmann MD Work Phone: [facility] 10-22-2021 16:38-0400 Systolic blood pressure 122 mm[Hg] Jorden Hartmann MD Work Phone: [facility] Encounters Encounter Date Encounter Type Care Provider Facility Start: 11-20-2024 amb[facility] Start: 11-16-2024 End: 11-16-2024 ambulatory JORDEN HARTMANN Facility:[facility] Start: 11-09-2024 End: 11-10-2024 Evaluation and management of inpatient IVETTFARHADDAVID ZHANNAASHUTOSH Facility:[facility] Start: 11-01-2024 End: 11-01-2024 Telephone encounter Zo Bowden MD Work Phone: [facility] Comment on above: Preparations For Pro cedures (Direct PCI) Start: 10-31-2024 End: 10-31-2024 Patient encounter procedure Palmira Russell DIRECTOR OF SCIENCE.CLEANING AND MAINTENANCE WORKER Work Phone: [facility] Comment on above: Coronary artery dise ase involving [place] coronary artery of [place] heart without angina pectoris (Primary Dx) Start: 10-30-2024 End: 10-30-2024 ambulatory PALMIRA RUSSELL Facility:[facility] Start: 10-30-2024 End: 10-30-2024 Patient encounter procedure Palmira Russell DIRECTOR OF SCIENCE.CLEANING AND MAINTENANCE WORKER Work Phone: [facility] Comment on above: OPENED IN ERROR (Melissa pau Dx) Start: 10-30-2024 End: 10-30-2024 Office outpatient visit 25 minutes Zo Bowden MD Work Phone: [facility] Comment on above: 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 Start: 10-26-2024 End: 10-31-2024 Follow-up encounter Jorden Hartmann MD Work Phone: [facility] Comment on above: Results Start: 10-26-2024 End: 10-26-2024 ambulatory SANTIAGO COLLADO Facility:[facility] Start: 10-24-2024 Encounter for other preprocedural examination JORDEN HARTMANN [facility] Start: 10-24-2024 End: 10-24-2024 ambulatory JORDEN HARTMANN Facility:[facility] Start: 10-20-2024 ambulatory UNKNOWN PROVIDER Facili ty:[facility] Start: 10-20-2024 Encounter for other preprocedural examination UNKNOWN PROVIDER [facility] Start: 10-20-2024 End: 10-20-2024 Patient encounter status [facility] Start: 10-20-2024 End: 10-20-2024 Subsequent hospital visit by physician [facility] Radiology Comment on above: Chronic systolic con gestive heart failure (HCC) [I50.22] Start: 10-11-2024 End: 10-17-2024 Patient encounter status Zo Bowden MD Work Phone: [facility] Start: 10-11-2024 End: 10-17-2024 Telephone encounter Zo Bowden MD Work Phone: [facility] Comment on above: Schedule Surgery; Or ders Start: 10-09-2024 End: 10-09-2024 Telephone encounter Zo Bowden MD Work Phone: [facility] Comment on above: Appointment Start: 10-04-2024 End: 10-10-2024 Patient encounter status Zo Bowden MD Work Phone: [facility] Start: 10-04-2024 End: 10-10-2024 Telephone encounter Zo Bowden MD Work Phone: [facility] Comment on above: Orders; Patient Upda te; Appointment Start: 09-26-2024 End: 09-26-2024 ambulatory ZO BOWDEN Facility:[facility] Start: 09-26-2024 End: 09-26-2024 ambulatory BEBETO CLARK Facility:[facility] Start: 09-25-2024 End: 09-25-2024 ambulatory JORDEN HARTMANN Facility:[facility] Start: 09-20-2024 End: 09-20-2024 ambulatory JORDEN HARTMANN Facility:[facility] Start: 09-19-2024 End: 09-19-2024 Patient encounter procedure Ayan Jefferson MD Work Phone: Urology Comment on above: Prostate cancer (HCC ) (Primary Dx) Start: 09-19-2024 End: 09-19-2024 ambulatory JORDEN HARTMANN Facility:[facility] Start: 09-15-2024 End: 09-15-2024 Chart abstracting Jorden Hartmann MD Work Phone: [facility] Comment on above: Abstract (Orthopaedi c OV note) Start: 09-15-2024 End: 09-15-2024 ambulatory JORDEN HARTMANN Facility:[facility] Start: 09-14-2024 End: 09-14-[address] Jorge Orlando MD -[facility] Work Phone: Start: 09-14-2024 End: 09-14-[address] Jorden Hartmann MD Work Phone: [facility] Start: 09-13-2024 End: 09-20-2024 Telephone encounter Monico Amaro MD Work Phone: [facility] Start: 09-12-2024 End: 09-12-2024 Telephone encounter Monico Amaro MD Work Phone: Cardiology Comment on above: Forms (Cardiac Clear ance ) Start: 09-05-2024 End: 09-06-2024 Follow-up encounter Monico Amaro MD Work Phone: Cardiology Start: 09-05-2024 End: 09-05-2024 ambulatory Alla Mascorro RN Cardiology Lab Start: 09-05-2024 End: 09-05-2024 Subsequent hospital visit by physician [facility] Work Phone: Cardiology Lab Comment on above: 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 Jorden Hartmann MD Work Phone: -[facility] Start: 08-18-2024 End: 08-18-2024 Patient encounter procedure Acacia James [place] -[facility] Work Phone: Start: 08-18-2024 End: 08-18-2024 ambulatory Jorden Hartmann Facility:[facility] Start: 08-11-2024 End: 08-11-[address] Guru Antony MD -[facility] Work Phone: Start: 08-11-2024 End: 08-11-[address] Jorden Hartmann MD Work Phone: [facility] Work Phone: Start: 08-04-2024 End: 08-04-2024 Nurse Triage Kassie Rdz LPN NURSE LOGGING SPECIALIST Comment on above: Refill Request Start: 08-01-2024 End: 08-01-2024 Patient encounter procedure Monico Amaro MD Work Phone: Cardiology Comment on above: Coronary artery dise ase due to lipid rich plaque (Primary Dx); Coronary artery disease involving [place] coronary artery of [place] heart without angina pectoris; Prolonged QT interval Start: 08-01-2024 End: 08-01-2024 ambulatory JORDEN HARTMANN Facility:[facility] Start: 07-05-2024 End: 07-05-2024 Chart abstracting Jorden Hartmann MD Work Phone: [facility] Comment on above: Outside Ortho Start: 07-04-2024 End: 07-04-[address] Braxton Moran MD -[facility] Start: 07-04-2024 End: 07-04-[address] Jorden Hartmann MD Work Phone: [facility] Work Phone: Start: 06-30-2024 End: 06-30-2024 ambulatory JORDEN HARTMANN Facility:[facility] Start: 06-30-2024 End: 06-30-2024 Follow-up encounter Hayley Gutierrez MD Work Phone: Radiation Oncology Comment on above: Radiotherapy follow- up (Primary Dx); Prostate cancer (HCC) Start: 06-30-2024 End: 06-30-2024 Telemedicine consultation with patient Hayley Gutierrez MD Work Phone: Radiation Oncology Start: 06-21-2024 End: 06-21-2024 Chart abstracting Jorden Hartmann MD Work Phone: [facility] Comment on above: Outside Imaging Start: 06-20-2024 End: 06-20-2024 Patient encounter procedure Claudia KENNEDY -Radiology, [facility] Work Phone: Start: 06-20-2024 End: 06-20-2024 ambulatory Claudia Castro Facility:[facility] Start: 06-14-2024 End: 06-14-2024 Chart abstracting Jorden Hartmann MD Work Phone: [facility] Start: 06-13-2024 End: 06-13-2024 Chart abstracting Jorden Hartmann MD Work Phone: [facility] Comment on above: Outside [place] Start: 06-12-2024 ambulatory Claudia Castro Facility:[facility] Start: 06-12-2024 Non-patient / Non-visit Dr. Cornell mejia MD -[facility] Start: 06-12-2024 End: 06-12-2024 Patient encounter procedure Claudia KENNEDY -Cardiovascular Services Work Phone: Start: 06-12-2024 End: 06-12-2024 ambulatory Claudia Castro Facility:[facility] Start: 06-02-2024 End: 06-02-2024 ambulatory JORDEN HARTMANN Facility:[facility] Start: 06-02-2024 End: 06-03-2024 Patient encounter procedure Hayley Gutierrez MD Work Phone: Radiation Oncology Comment on above: Prostate cancer (HCC ) (Primary Dx) Start: 06-02-2024 End: 06-03-2024 Radiation Oncology Note Hayley Gutierrez MD Work Phone: Radiation Oncology Comment on above: Completion Note Start: 06-01-2024 End: 06-01-2024 ambulatory JOREDN HARTMANN Facility:[facility] Start: 05-31-2024 End: 05-31-2024 ambulatory JORDEN HARTMANN Facility:[facility] Start: 05-30-2024 End: 05-30-2024 Patient encounter procedure Hayley Gutierrez MD Work Phone: Radiation Oncology Comment on above: Prostate cancer (HCC ) (Primary Dx) Start: 05-30-2024 End: 05-30-2024 ambulatory JORDEN HARTMANN Facility:[facility] Start: 05-29-2024 End: 05-29-2024 ambulatory HAYLEY GUTIERREZ Facility:[facility] Start: 05-26-2024 End: 05-26-2024 Patient encounter procedure Claudia KENNEDY -[facility] Work Phone: Start: 05-26-2024 End: 05-26-2024 ambulatory Claudia Castro Facility:[facility] Start: 05-25-2024 End: 05-25-2024 ambulatory JORDEN HARTMANN Facility:[facility] Start: 05-25-2024 End: 05-25-2024 Telephone encounter Venita HENSON Hematology/Oncology Comment on above: Social Work Services Start: 05-24-2024 End: 05-24-2024 Patient encounter procedure Hayley Gutierrez MD Work Phone: Radiation Oncology Comment on above: Prostate cancer (HCC ) (Primary Dx) Start: 05-24-2024 End: 05-24-2024 ambulatory [facility] Facility:[facility] Start: 05-23-2024 End: 05-23-2024 ambulatory [facility] Facility:[facility] Start: 05-22-2024 End: 05-22-2024 ambulatory [facility] Facility:[facility] Start: 05-19-2024 End: 05-19-2024 ambulatory [facility] Facility:[facility] Start: 05-18-2024 End: 05-18-2024 ambulatory [facility] Facility:[facility] Start: 05-17-2024 End: 05-17-2024 ambulatory [facility] Facility:[facility] Start: 05-16-2024 End: 05-16-2024 Patient encounter procedure Moo Mabry MD Work Phone: Radiation Oncology Comment on above: Prostate cancer (HCC ) (Primary Dx) Start: 05-16-2024 End: 05-16-2024 ambulatory JORDEN ARIELLE Facility:[facility] Start: 05-16-2024 End: 05-16-2024 Follow-up encounter Shawnee Belle APRN.CNP Work Phone: [facility] Start: 05-15-2024 End: 05-15-2024 ambulatory JORDEN HARTMANN Facility:[facility] Start: 05-12-2024 End: 05-12-2024 ambulatory HAYLEY GUTIERREZ Facility:[facility] Start: 05-11-2024 End: 05-11-[address] Guru Antony MD -[facility] Work Phone: Start: 05-11-2024 End: 05-11-2024 ambulatory Jorden Hartmann Facility:[facility] Start: 05-10-2024 End: 05-10-2024 ambulatory JORDEN HARTMANN Facility:[facility] Start: 05-09-2024 End: 05-09-2024 Patient encounter procedure Hayley Gutierrez MD Work Phone: Radiation Oncology Comment on above: Prostate cancer (HCC ) (Primary Dx) Start: 05-09-2024 End: 05-09-2024 ambulatory JORDEN HARTMANN Facility:[facility] Start: 05-08-2024 End: 05-08-2024 ambulatory JORDEN HARTMANN Facility:[facility] Start: 05-05-2024 End: 05-05-2024 ambulatory JORDEN HARTMANN Facility:[facility] Start: 05-05-2024 End: 05-05-2024 Chart abstracting Jorden Hartmann MD Work Phone: [facility] Comment on above: Outside Imaging Start: 05-04-2024 End: 05-04-[address] Guru Antony MD -Radiology, [facility] Work Phone: Start: 05-04-2024 End: 05-04-[address] Jorden Hartmann MD Work Phone: [facility] Work Phone: Start: 05-03-2024 End: 05-04-2024 ambulatory Jorden Hartmann Facility:[facility] Start: 05-02-2024 End: 05-02-2024 Patient encounter procedure Hayley Gutierrez MD Work Phone: Radiation Oncology Comment on above: Prostate cancer (HCC ) (Primary Dx) Start: 05-02-2024 End: 05-02-2024 ambulatory JORDEN HARTMANN Facility:[facility] Start: 05-01-2024 End: 05-01-2024 ambulatory JORDEN HARTMANN Facility:[facility] Start: 04-28-2024 End: 04-28-2024 [facility] Facility:[facility] Start: 04-27-2024 End: 04-27-2024 [facility] Facility:[facility] Start: 04-26-2024 End: 04-26-2024 [facility] Facility:[facility] Start: 04-20-2024 End: 04-20-[address] Guru Antony MD -[facility] Work Phone: Start: 04-20-2024 End: 04-20-2024 ambulatory Jorden Hartmann Facility:[facility] Start: 04-10-2024 End: 04-14-2024 Patient encounter procedure Hayley Gutierrez MD Work Phone: Radiation Oncology Start: 04-10-2024 End: 04-14-2024 Radiation Oncology Note Hayley Gutierrez MD Work Phone: Radiation Oncology Comment on above: Simulation Note Treatment Planning Start: 04-10-2024 End: 04-10-2024 [facility] Facility:[facility] Start: 04-10-2024 End: 04-10-2024 Nursing evaluation of patient and report Nurse [facility] Work Phone: Radiation Oncology Comment on above: Prostate cancer (HCC ) (Primary Dx) Start: 04-07-2024 End: 04-13-2024 Telephone encounter Hayley Gutierrez MD Work Phone: Radiation Oncology Comment on above: Prostate cancer (HCC ) (Primary Dx) Start: 04-03-2024 End: 04-04-2024 ambulatory Hayley Gutierrez MD Work Phone: Radiation Oncology Comment on above: Prostate cancer (HCC ) (Primary Dx) Start: 04-03-2024 End: 04-04-2024 Telemedicine consultation with patient Hayley Gutierrez MD Work Phone: Radiation Oncology Start: 03-27-2024 End: 03-31-2024 Telephone encounter Hayley Gutierrez MD Work Phone: Radiation Oncology Comment on above: Patient Question Start: 03-23-2024 End: 03-23-2024 ambulatory [facility] Facility:[facility] Start: 03-23-2024 End: 03-23-2024 Patient encounter procedure Hayley Gutierrez MD Work Phone: Radiation Oncology Comment on above: Prostate cancer (HCC ) Start: 03-17-2024 End: 03-17-2024 ambulatory JORDEN HARTMANN Facility:[facility] Start: 03-17-2024 End: 03-17-2024 Office outpatient visit 25 minutes Debora Martinez PA-C Work Phone: [facility] Comment on above: Injury of right hand , sequela (Primary Dx); Numbness and tingling in right hand; Coronary artery disease involving [place] coronary artery of [place] heart without angina pectoris; Iron deficiency anemia, unspecified iron deficiency anemia type; Lumbar back pain with radiculopathy affecting lower extremity; Chronic pain of both shoulders Start: 03-14-2024 End: 03-14-2024 ambulatory JORDEN HARTMANN Facility:[facility] Start: 03-14-2024 End: 03-14-2024 Patient encounter procedure Ayan Jefferson MD Work Phone: Urology Comment on above: Prostate cancer (HCC ) (Primary Dx) Start: 03-10-2024 End: 03-10-2024 ambulatory JORDEN HARTMANN Facility:[facility] Start: 02-29-2024 End: 02-29-2024 ambulatory JORDEN HARTMANN Facility:[facility] Start: 02-29-2024 End: 02-29-2024 Patient encounter procedure Ayan Jefferson MD Work Phone: Urology Comment on above: Elevated prostate sp ecific antigen (PSA) (Primary Dx) Start: 02-01-2024 End: 02-01-2024 Refill Jorden Hartmann MD Work Phone: [facility] Comment on above: Refill Request Start: 12-16-2023 End: 12-16-2023 Telephone encounter Ayan Jefferson MD Work Phone: Urology Comment on above: Patient Update Start: 12-07-2023 End: 12-07-2023 Telephone encounter Ayan Jefferson MD Work Phone: Urology Comment on above: Patient Question Start: 11-29-2023 End: 12-03-2023 Telephone encounter Brady Elmira MICHELLE Work Phone: Urology Comment on above: Results; Appointment Start: 11-23-2023 End: 11-23-2023 Patient encounter procedure Brady Elmira MICHELLE Work Phone: Urology Comment on above: Elevated PSA (Primar y Dx); Screening for genitourinary condition Start: 11-15-2023 End: 11-16-2023 Telephone encounter Jorden Hartmann MD Work Phone: [facility] [place] Comment on above: Insurance Authorizat ion Start: 11-12-2023 End: 11-12-2023 Nurse Triage Jos Tucker RN NURSE LOGGING SPECIALIST Comment on above: Refill Request Information; Patient Update Start: 10-27-2023 End: 10-29-2023 Refill Jorden Hartmann MD Work Phone: [address] [place] [address] Comment on above: Refill Request Start: 10-18-2023 End: 10-18-2023 Telephone encounter Jorden Hartmann MD Work Phone: [facility] Comment on above: Patient Question Start: 09-20-2023 Telephone encounter Jennifer Ferraro MA [facility] Comment on above: Appointment (Referra l to Urology ) Start: 09-18-2023 Patient encounter procedure Jennifer Ferraro MA [facility] Start: 08-31-2023 Telephone encounter Jorden Hartmann MD Work Phone: [facility] Comment on above: Appointment Start: 08-20-2023 Telephone encounter Jennifer Ferraro MA [facility] Start: 07-27-2023 Refill Jorden walker MD Work Phone: [facility] Comment on above: Refill Request Start: 04-29-2023 Telephone encounter Jorden Hartmann MD Work Phone: [facility] Comment on above: Opened In Error Start: 04-28-2023 Refill Jorden walker MD Work Phone: [facility] Comment on above: Refill Request Start: 01-11-2023 Refill Jorden walker MD Work Phone: [facility] Comment on above: Refill Request Start: 12-03-2022 End: 12-03-2022 Patient encounter procedure Shawnee Loaizaaditi ORLANDO Work Phone: [facility] Comment on above: Encounter for immuni zation (Primary Dx); Essential hypertension Start: 11-27-2022 Refill Jorden walker MD Work Phone: [facility] Comment on above: Refill Request Start: 11-04-2022 End: 11-04-2022 Ophthalmic examination and evaluation Jorden Hartmann MD Work Phone: [facility] Work Phone: Start: 11-04-2022 End: 11-04-2022 Patient encounter procedure Jorden Hartmann MD Work Phone: [facility] Comment on above: Uncontrolled type 2 diabetes mellitus with hyperglycemia (HCC) (Primary Dx); Type 2 diabetes mellitus without retinopathy (HCC); Type 2 diabetes mellitus with diabetic neuropathy, without long-term current use of insulin (HCC); Diabetic eye exam (HCC); Essential hypertension; Mixed hyperlipidemia; Coronary artery disease involving [place] coronary artery of [place] heart without angina pectoris; Congestive heart failure, unspecified HF chronicity, unspecified heart failure type (HCC); Ischemic cardiomyopathy; Gastroesophageal reflux disease without esophagitis; Iron deficiency anemia, unspecified iron deficiency anemia type; COPD with chronic bronchitis (HCC); Depression with anxiety; Obesity, Class II, BMI 35-39.9; Smoker; Elevated PSA Start: 10-08-2022 Telephone encounter Jorden Hartmann MD Work Phone: [facility] Comment on above: Results Start: 04-01-2022 End: 04-01-2022 Ophthalmic examination and evaluation Jorden Hartmann MD Work Phone: [facility] Start: 04-01-2022 End: 04-01-2022 Patient encounter procedure Jorden Hartmann MD Work Phone: [facility] Comment on above: Uncontrolled type 2 diabetes mellitus with hyperglycemia (HCC) (Primary Dx); Type 2 diabetes mellitus with diabetic neuropathy, without long-term current use of insulin (HCC); Type 2 diabetes mellitus without retinopathy (HCC); Diabetic eye exam (HCC); Essential hypertension; Mixed hyperlipidemia; Gastroesophageal reflux disease without esophagitis; Coronary artery disease involving [place] coronary artery of [place] heart without angina pectoris; Congestive heart failure, unspecified HF chronicity, unspecified heart failure type (HCC); Ischemic cardiomyopathy; COPD with chronic bronchitis (HCC); Depression with anxiety; Iron deficiency anemia, unspecified iron deficiency anemia type; Smoker; Obesity, Class II, BMI 35-39.9; Advance directive discussed with patient; Elevated PSA Start: 10-28-2021 Ophthalmic examinati on and evaluation JORDEN HARTMANN [facility] Start: 10-22-2021 End: 10-22-2021 Ophthalmic examination and evaluation Jorden Hartmann MD Work Phone: [facility] [place] Start: 10-22-2021 End: 10-22-2021 Patient encounter procedure Jorden Hartmann MD Work Phone: [facility] [place] Comment on above: Medicare annual [facility] visit, initial (Primary Dx); Type 2 diabetes mellitus without retinopathy (HCC); Uncontrolled type 2 diabetes mellitus with hyperglycemia (HCC); Type 2 diabetes mellitus with diabetic neuropathy, without long-term current use of insulin (HCC); Diabetic eye exam (HCC); Essential hypertension; Mixed hyperlipidemia; Congestive heart failure, unspecified HF chronicity, unspecified heart failure type (HCC); Coronary artery disease involving [place] coronary artery of [place] heart without angina pectoris; Ischemic cardiomyopathy; COPD with chronic bronchitis (HCC); Gastroesophageal reflux disease without esophagitis; Iron deficiency anemia, unspecified iron deficiency anemia type; Depression with anxiety; Obesity, Class II, BMI 35-39.9; Smoker; Elevated PSA; Living will in place; Advance directive discussed with patient Start: 12-12-2019 End: 12-12-2019 Subsequent hospital visit by physician Jimmy [facility] [place] Work Phone: Radiology Comment on above: Acute pain of right knee [M25.561] Start: 12-06-2019 End: 12-06-2019 Subsequent hospital visit by physician Jimmy [facility] [place] Work Phone: Radiology Comment on above: Sciatica of right si de [M54.31] Start: 07-24-2019 Ophthalmic examinati on and evaluation Jorden Hartmann MD Work Phone: [facility] Work Phone: Start: 08-23-2017 Ambulatory PABLO PRECIADO Facility :[facility] Start: 05-10-2017 End: 05-10-2017 Ambulatory Jorden Hartmann Facility:[facility] Start: 02-23-2017 End: 02-23-2017 Ambulatory PABLO ILANA Facility:[facility] Procedures Date Procedure Procedure Detail Performing Clinician Start: 10-30-2024 Iadna s aureus ampli fied probe tq Palmira Russell DIRECTOR OF SCIENCE.CLEANING AND MAINTENANCE WORKER Work Phone: Start: 10-24-2024 Antibody screen JORDEN HARTMANN Comment on above: Order Comment: Speci men Type: BLOOD SPECIMENOrdering Facility: [facility] Address: [address] [place] [address] Performed By: #### T [id number] ####CC MAIN BLOOD BANKCLIA [id number] [address] [place] Start: 10-20-2024 Ct thorax w/o contra st material Palmira Russell DIRECTOR OF SCIENCE.CLEANING AND MAINTENANCE WORKER Work Phone: Start: 09-05-2024 Myocardial spect mul tiple studies Monico Amaro MD Work Phone: Start: 09-05-2024 Echo tthrc r-t 2d w/wom-mode compl spec&colr d Monico Amaro MD Work Phone: Start: 08-18-2024 MRI of lumbar spine Dr. Jorden Hartmann MD Work Phone: Start: 07-04-2024 X-ray of cervical spine Dr. Jorden Hartmann MD Work Phone: Start: 07-04-2024 X-ray of lumbosacral spine Dr. Jorden Hartmann MD Work Phone: Start: 06-20-2024 X-ray of lumbar spin e, two or three views Dr. Jorden Hartmann MD Work Phone: Start: 05-04-2024 Plain x-ray of hand Dr. Jorden Hartmann MD Work Phone: Start: 02-29-2024 Us pelvic nonobstetr ic image dcmtn limited/f/u Ayan Jefferson MD Work Phone: Start: 02-29-2024 Urnls dip stick/tabl et rgnt auto w/o microscopy Ayan Jefferson MD Work Phone: Start: 11-23-2023 Urnls dip stick/tabl et rgnt auto w/o microscopy Brady Martinez PA-C Work Phone: Start: 12-03-2022 INFLUENZA VACCINE, P RSV FREE, AGE 65+ YR, HIGH DOSE, QUADRIVALENT (FLUZONE HIGH-DOSE) [place] Belle 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: Start: 12-12-2019 Radiologic exam knee complete 4/more views Jorden Hartmann MD Work Phone: Start: 12-06-2019 Radex spine lumbosac ral 2/3 views Jorden Hartmann MD Work Phone: Start: 11-16-2019 Colonoscopy Jorden alvarez MD Work Phone: Start: 05-25-2014 History of placement of stent in anterior descending branch of left coronary artery Presence of drug coated stent in LAD coronary artery Jorden Hartmann MD Work Phone: Plan of Treatment Date Care Activity Detail Author Start: 07-07-2027 Screening for malignant neoplasm of colon [facility] Start: 09-25-2025 Hepatitis B screening Urine Albumin:Creatinine Ratio [facility] Start: 09-25-2025 Hepatitis B surface antibody level LDL Cholesterol [facility] Start: 09-20-2025 Annual PCP Team Chronic Disease Visit Annual PCP Team Chronic Disease Visit [facility] Start: 08-01-2025 zzBP Controlled (<130/80) (Retired) zzBP Controlled (<130/80) (Retired) [facility] Start: 03-28-2025 Hemoglobin A1c measurement HbA1C [facility] Start: 03-27-2025 End: 03-27-2025 Patient encounter procedure 03/27/2025 1:30 PM EST Office Visit Urology [address] [address] Ayan Jefferson Jr., MD [address] [place] [address] Return in about 6 months (around 03/22/2025) for psa prior. Urology Comment on above: Return in about 6 months (around 03/22/19) for psa prior. Start: 03-22-2025 End: 06-21-2025 Prostate specific Ag [Mass/volume] in Serum or Plasma PROSTATE-SPECIFIC ANTIGEN DIAGNOSTIC Lab Routine Prostate cancer (HCC) Expected: 03/22/2025, Expires: 06/21/2025 [facility] Work Phone: Comment on above: Expected: 03/22/2025, Expires: Start: 03-17-2025 Annual PCP Team Chronic Disease Visit Annual PCP Team Chronic Disease Visit [facility] Start: 03-10-2025 Hepatitis B surface antibody level LDL Cholesterol [facility] Start: 01-24-2025 End: 01-24-2025 Patient encounter procedure 01/24/2025 1:20 PM EST Office Visit [facility] [place] [address] [place], [place] [phone] Debora Martinez PA-C [address] [place], [place] [phone] Medicare Wellness [facility] [place] Comment on above: Medicare Wellness Start: 11-28-2024 End: 11-28-2024 Patient encounter procedure 11/28/2024 3:30 PM EDT Office Visit Urology [address] [place] [address] Brady Martinez PA-C [address] [place] [address] 1year follow up Urology Comment on above: 1year follow up Start: 11-15-2024 Colonoscopy COLONOSCOPY [facility] Start: 11-15-2024 COLORECTAL CANCER SCREENING COLORECTAL CANCER SCREENING [facility] Start: 11-15-2024 Screening for malignant neoplasm of colon [facility] Start: 11-09-2024 End: 11-09-2024 Admission to same day surgery center 11/09/2024 8:20 AM EDT - 11/09/2024 10:20 AM EDT [address] [address] Bebeto Clark MD [address] [place] [address] INSERT INTRACORONARY STENT-PER MAJOR VESSEL OR BRANCH [facility] Comment on above: INSERT INTRACORONARY STENT-PER MAJOR VES CANDIDO OR BRANCH Start: 11-09-2024 End: 11-09-2024 Prq trluml coronary stent w/angio one art/brnch INSERT INTRACORONARY STENT-PER MAJOR VESSEL OR BRANCH NSTEMI (non-ST elevated myocardial infarction) (HCC) 11/09/2024 8:20 AM EDT [place] MANAGER SOCIAL WORK Start: 11-09-2024 Subsequent hospital visit by physician 11/09/2024 8:20 AM EDT Hospital Encounter [address] [address] Bebeto Clark MD [address] [place] [address] NSTEMI (non-ST elevated myocardial infarction) (HCC) [I21.4] [facility] Comment on above: NSTEMI (non-ST elevated myocardial infar ction) ([facility]) [I21.4] Start: 11-07-2024 End: 11-07-2024 Admission to same day surgery center 11/07/2024 8:00 AM EDT - 11/07/2024 12:50 PM EDT [address] [address] Zo Bowden MD [address] [facility] [place] [address] BYPASS GRAFT ARTERY CORONARY ON-PUMP THREE CORONARY ARTERIAL GRAFTS [facility] Comment on above: BYPASS GRAFT ARTERY CORONARY ON-PUMP THR EE CORONARY ARTERIAL GRAFTS Start: 11-07-2024 End: 11-07-2024 Cabg w/arterial graft three arterial grafts BYPASS GRAFT ARTERY CORONARY ON-PUMP THREE CORONARY ARTERIAL GRAFTS Coronary artery disease involving [place] coronary artery of [place] heart without angina pectoris 11/07/2024 8:00 AM EDT [place] Start: 11-07-2024 Subsequent hospital visit by physician 11/07/2024 8:00 AM EDT Hospital Encounter [facility] [address] [place] [address] Zo Bowden MD [address] [facility] [place] [address] Coronary artery disease involving [place] coronary artery of [place] heart without angina pectoris [I25.10] [facility] Comment on above: Coronary artery disease involving [place] coronary artery of [place] heart without angina pectoris [I25.10] Start: 11-02-2024 End: 11-02-2024 Patient encounter procedure 11/02/2024 3:00 PM EDT Office Visit Cardiology [address] [place] [address] Palmira Angeles APRN.CLEANING AND MAINTENANCE WORKER [address] [place] [phone] 3 mo follow up Cardiology Comment on above: 3 mo follow up Start: 10-30-2024 End: 10-30-2024 Patient encounter procedure [facility] Comment on above: review 10/18/24 CT Chest, carotid us ISABELLE/RHC possible PAT for CAB G pt seeing Dr. Bowden at 1:45 Rescheduled due to Mandeep Byrd on PTO 10/30/24 Start: 10-26-2024 End: 10-26-2024 R & l hrt cath winjx hrt art& l ventr img [place] MANAGER SOCIAL WORK Start: 10-26-2024 End: 10-26-2024 Admission to same day surgery center [facility] Comment on above: ECHOCARDIOGRAM TRANSESOPHOGEAL CORONARY CATH RIGHT/ LEFT HEART ANGIO INTRAPROCEDURAL INJECT IMAGING SUPERVISIO/INTERPRETATION Start: 10-26-2024 End: 10-26-2024 Echo transesophag montr cardiac pump functj ECHOCARDIOGRAM TRANSESOPHOGEAL Abnormal stress test Valvular heart disease 10/26/2024 8:30 AM EDT [place] POD Start: 10-26-2024 Subsequent hospital visit by physician 10/26/2024 8:30 AM EDT Hospital Encounter [facility] [address] [place] [address] Bebeto Clark MD [address] [place] [address] Abnormal stress test [R94.39], Valvular heart disease [I38], Abnormal stress test [R94.39], Valvular heart disease [I38] [facility] Comment on above: Abnormal stress test [R94.39], Valvular heart disease [I38], Abnormal stress test [R94.39], Valvular heart disease [I38] Start: 10-24-2024 End: 10-24-2024 Patient encounter procedure 10/24/2024 1:30 PM EDT Office Visit Vasculary Surgery [address] [place] [address] Dx: Chronic systolic congestive heart failure (HCC) [I50.22]; Coronary artery disease involving [place] coronary artery of [place] heart without angina pectoris [I25.10]; Nonrheumatic mitral valve regurgitation [I34.0]; Preoperative testing [Z01.818]; Encounter for screening for cardiovascular disorders [Z13.6] [facility] Comment on above: Dx: Chronic systolic congestive heart fa ilure (HCC) [I50.22]; Coronary artery disease involving [place] coronary artery of [place] heart without angina pectoris [I25.10]; Nonrheumatic mitral valve regurgitation [I34.0]; Preoperative testing [Z01.818]; Encounter for screening for cardiovascular disorders [Z13.6] Start: 10-23-2024 Influenza vaccination [facility] Start: 10-20-2024 End: 10-20-2024 Patient encounter procedure 10/20/2024 1:15 PM EDT Appointment Radiology [address] [place] [address] Chronic systolic congestive heart failure (HCC) [I50.22] Radiology Comment on above: Chronic systolic congestive heart failur e (HCC) [I50.22] Start: 10-18-2024 End: 10-18-2024 Patient encounter procedure Cat Scan Comment on above: CHF, CAD, Mitral regurg, preop testing US CAROTID ARTERIES [facility] Start: 10-17-2024 End: 01-16-2025 CBC panel - Blood by Automated count COMPLETE BLOOD COUNT Lab Routine Coronary artery disease involving [place] coronary artery of [place] heart without angina pectoris Preoperative testing Expected: 10/17/2024, Expires: 01/16/2025 [facility] Comment on above: Expected: 10/17/2024, Expires: Start: 10-17-2024 End: 01-16-2025 Comprehensive metabolic 2000 panel - Serum or Plasma COMPREHENSIVE METABOLIC PANEL Lab Routine Coronary artery disease involving [place] coronary artery of [place] heart without angina pectoris Preoperative testing Expected: 10/17/2024, Expires: 01/16/2025 [facility] Comment on above: Expected: 10/17/2024, Expires: Start: 10-17-2024 End: 01-16-2025 Magnesium [Mass/volume] in Serum or Plasma MAGNESIUM Lab Routine Coronary artery disease involving [place] coronary artery of [place] heart without angina pectoris Preoperative testing Expected: 10/17/2024, Expires: 01/16/2025 [facility] Comment on above: Expected: 10/17/2024, Expires: Start: 10-17-2024 End: 01-16-2025 PT panel - Platelet poor plasma by Coagulation assay PROTHROMBIN TIME Lab Routine Coronary artery disease involving [place] coronary artery of [place] heart without angina pectoris Preoperative testing Expected: 10/17/2024, Expires: 01/16/2025 [facility] Comment on above: Expected: 10/17/2024, Expires: Start: 10-17-2024 End: 01-16-2025 Thyrotropin [Units/volume] in Serum or Plasma THYROID STIMULATING HORMONE Lab Routine Coronary artery disease involving [place] coronary artery of [place] heart without angina pectoris Preoperative testing Uncontrolled type 2 diabetes mellitus with hyperglycemia (HCC) Expected: 10/17/2024, Expires: 01/16/2025 [facility] Comment on above: Expected: 10/17/2024, Expires: Start: 10-17-2024 End: 01-16-2025 TYPE AND SCREEN,30 DAY TYPE AND SCREEN,30 DAY Blood Bank Routine Coronary artery disease involving [place] coronary artery of [place] heart without angina pectoris Preoperative testing Expected: 10/17/2024, Expires: 01/16/2025 [facility] Work Phone: Comment on above: Expected: 10/17/2024, Expires: Start: 10-17-2024 End: 01-16-2025 Urinalysis complete panel - Urine URINALYSIS (WITH MICROSCOPIC) WITH CULTURE IF INDICATED Lab Routine Coronary artery disease involving [place] coronary artery of [place] heart without angina pectoris Preoperative testing Expected: 10/17/2024, Expires: 01/16/2025 [facility] Comment on above: Expected: 10/17/2024, Expires: Start: 09-26-2024 End: 09-26-2024 Admission to same day surgery center 09/26/2024 10:00 AM EDT - 09/26/2024 11:30 AM EDT Surgery [address] [address] Bebeto Clark MD [address] [place] [address] LEFT HEART CATH INTRAPROCEDURAL INJECT W/ LEFT VENTRICULOGRAPHY IMAGE SUPERVISION/INTERPRETATIO N [facility] Comment on above: LEFT HEART CATH INTRAPROCEDURAL INJECT W / LEFT VENTRICULOGRAPHY IMAGE SUPERVISION/INTERPRETATION Start: 09-26-2024 End: 09-26-2024 L hrt cath w/njx l ventriculography img s&i LEFT HEART CATH INTRAPROCEDURAL INJECT W/ LEFT VENTRICULOGRAPHY IMAGE SUPERVISION/INTERPRETATIO N Abnormal stress test 09/26/2024 10:00 AM EDT [place] MANAGER SOCIAL WORK Start: 09-26-2024 Subsequent hospital visit by physician 09/26/2024 10:00 AM EDT Hospital Encounter [address] [address] Bebeto Clark MD [address] [place] [address] Abnormal stress test [R94.39] [facility] Comment on above: Abnormal stress test [R94.39] Start: 09-20-2024 End: 09-20-2024 Patient encounter procedure [facility] [place] Comment on above: routine ov (6 month) Start: 09-19-2024 End: 09-19-2024 Patient encounter procedure 09/19/2024 3:30 PM EDT Office Visit Urology [address] [address] Ayan Jefferson Jr., MD [address] [place] [address] 6 month Urology Comment on above: 6 month Start: 09-11-2024 End: 12-11-2024 Prostate specific Ag [Mass/volume] in Serum or Plasma PROSTATE-SPECIFIC ANTIGEN DIAGNOSTIC Lab Routine Prostate cancer (HCC) Expected: 09/11/2024, Expires: 12/11/2024 [facility] Comment on above: Expected: 09/11/2024, Expires: Start: 09-09-2024 Annual PCP Team Chronic Disease Visit Annual PCP Team Chronic Disease Visit [facility] Start: 09-09-2024 BP Controlled (<130/80) BP Controlled (<130/80) [facility] inic Start: 09-09-2024 Diabetic foot examination Diabetic Foot Exam [facility] ic Start: 09-09-2024 RSV Vaccine (1 - 1-dose 60+ series) RSV Vaccine (1 - 1-dose 60+ series) [facility] Comment on above: Postponed from 2012 (Insurance Cov erage) Start: 09-09-2024 RSV Vaccine (1 - Risk 60-74 years 1-dose series) RSV Vaccine (1 - Risk 60-74 years 1-dose series) [facility] Comment on above: Postponed from 2012 (Insurance Cov erage) Start: 09-07-2024 Hemoglobin A1c measurement HbA1C [facility] Start: 09-05-2024 Subsequent hospital visit by physician 09/05/2024 2:30 PM EDT Hospital Encounter Cardiology Lab [address] [place] [address] 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, I25.83] Cardiology Lab Comment on above: Coronary artery disease due to lipid kwame h plaque [I25.10, I25.83] Start: 09-05-2024 End: 09-05-2024 Patient encounter procedure Cardiology Lab Comment on above: Dx: 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, 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] Start: 08-21-2024 Influenza vaccination Influenza Vaccine (#1) [place] [facility] Comment on above: Postponed from 10/24/2023 (Declined at t his time) Start: 08-19-2024 Hepatitis B screening Urine Albumin:Creatinine Ratio [facility] Start: 08-19-2024 Hepatitis B surface antibody level LDL Cholesterol [facility] Start: 08-01-2024 End: 08-01-2024 Patient encounter procedure 08/01/2024 2:20 PM EDT Office Visit Cardiology [address] [place] [phone] Monico Amaro MD [address] [place] [phone] Coronary artery disease involving [place] coronary artery of [place] heart without... Cardiology Comment on above: Coronary artery disease involving [place] coronary artery of [place] heart without... Start: 08-01-2024 End: 10-31-2024 Basic metabolic 2000 panel - Serum or Plasma BASIC METABOLIC PANEL Lab Routine Prolonged QT interval Expected: 08/01/2024, Expires: 10/31/2024 [facility] Comment on above: Expected: 08/01/2024, Expires: 5 Start: 08-01-2024 End: 08-01-2025 Echocardiography ECHO Cardiology Routine Coronary artery disease due to lipid rich plaque Expected: 08/01/2024, Expires: 08/01/2025 [facility] Work Phone: Comment on above: Expected: 08/01/2024, Expires: Start: 08-01-2024 End: 10-31-2024 Magnesium [Mass/volume] in Serum or Plasma MAGNESIUM Lab Routine Prolonged QT interval Expected: 08/01/2024, Expires: 10/31/2024 [facility] Comment on above: Expected: 08/01/2024, Expires: Start: 07-04-2024 X-ray of cervical spine Cerv Spine 4 or 5 Views [facility] Start: 07-04-2024 XR Cervical spine 4 or 5 Views [facility] Start: 07-04-2024 X-ray of lumbosacral spine L/S Spine Bending Flex/Ext [facility] Start: 07-04-2024 XR Spine Lumbar and Sacrum Views [facility] Start: 07-04-2024 Screening for malignant neoplasm of colon [facility] Start: 06-30-2024 End: 06-30-2024 Follow-up encounter 06/30/2024 11:30 AM EDT [facility] Radiation Oncology [address] [place], [place] [address] Hayley Gutierrez MD [address] [place] [address] 4WK FOLLOW UP Radiation Oncology Comment on above: 4WK FOLLOW UP Start: 06-16-2024 End: 09-15-2024 CBC W Auto Differential panel - Blood COMPLETE BLOOD COUNT AND DIFFERENTIAL Lab Routine Iron deficiency anemia, unspecified iron deficiency anemia type Expected: 06/16/2024, Expires: 09/15/2024 [facility] Comment on above: Expected: 06/16/2024, Expires: Start: 06-16-2024 End: 09-15-2024 Iron and Iron binding capacity panel - Serum or Plasma IRON AND TIBC Lab Routine Iron deficiency anemia, unspecified iron deficiency anemia type Expected: 06/16/2024, Expires: 09/15/2024 [facility] Work Phone: Comment on above: Expected: 06/16/2024, Expires: Start: 06-02-2024 End: 06-02-2024 Patient encounter procedure Radiation Oncology Comment on above: Location: [facility] Location: W-ON TREAT MENT VISIT Start: 06-01-2024 End: 06-01-2024 Patient encounter procedure 06/01/2024 2:00 PM EDT Appointment Radiation Oncology [address] [place] [address] Location: [email or web address] Comment on above: Location: [facility] Start: 05-31-2024 End: 05-31-2024 Patient encounter procedure 05/31/2024 2:00 PM EDT Appointment Radiation Oncology [address] [place] [address] Location: [facility] Comment on above: Location: [facility] Start: 05-30-2024 End: 05-30-2024 Patient encounter procedure Radiation Oncology Comment on above: Location: [facility] Location: W-ON TREAT MENT VISIT Start: 05-29-2024 End: 05-29-2024 Patient encounter procedure 05/29/2024 2:00 PM EDT Appointment Radiation Oncology [address] [place] [address] Location: [email or web address] Comment on above: Location: [facility] Start: 05-26-2024 End: 05-26-2024 Patient encounter procedure 05/26/2024 2:00 PM EDT Appointment Radiation Oncology [address] [place] [address] Location: [email or web address] Comment on above: Location: [facility] Start: 05-25-2024 End: 05-25-2024 Patient encounter procedure 05/25/2024 2:00 PM EDT Appointment Radiation Oncology [address] [place] [address] Location: [email or web address] Comment on above: Location: [facility] Start: 05-24-2024 End: 05-24-2024 Patient encounter procedure 05/24/2024 2:00 PM EDT Appointment Radiation Oncology [address] [place] [address] Location: [facility] Comment on above: Location: [facility] Start: 05-23-2024 End: 05-23-2024 Patient encounter procedure Radiation Oncology Comment on above: Location: [facility] Location: W-ON TREAT MENT VISIT Start: 05-22-2024 End: 05-22-2024 Patient encounter procedure 05/22/2024 2:00 PM EDT Appointment Radiation Oncology [address] [place] [address] Location: [email or web address] Comment on above: Location: [facility] Start: 05-19-2024 End: 05-19-2024 Patient encounter procedure 05/19/2024 2:00 PM EDT Appointment Radiation Oncology [address] [place] [address] Location: [email or web address] Comment on above: Location: [facility] Start: 05-18-2024 End: 05-18-2024 Patient encounter procedure 05/18/2024 2:00 PM EDT Appointment Radiation Oncology [address] [place] [address] Location: [email or web address] Comment on above: Location: [facility] Start: 05-17-2024 End: 05-17-2024 Patient encounter procedure 05/17/2024 2:00 PM EDT Appointment Radiation Oncology [address] [place] [address] Location: [email or web address] Comment on above: Location: [facility] Start: 05-16-2024 End: 05-16-2024 Patient encounter procedure Radiation Oncology Comment on above: Location: [facility] Location: W-ON TREAT MENT VISIT Start: 05-15-2024 End: 05-15-2024 ambulatory 05/15/2024 4:00 PM EDT Results Only [facility] [address] [place] [address] lab [facility] Comment on above: lab Start: 05-15-2024 End: 08-14-2024 CBC W Auto Differential panel - Blood COMPLETE BLOOD COUNT AND DIFFERENTIAL Lab Routine Iron deficiency anemia, unspecified iron deficiency anemia type Expected: 05/15/2024, Expires: 08/14/2024 [facility] Comment on above: Expected: 05/15/2024, Expires: Start: 05-15-2024 End: 08-14-2024 Iron and Iron binding capacity panel - Serum or Plasma IRON AND TIBC Lab Routine Iron deficiency anemia, unspecified iron deficiency anemia type Expected: 05/15/2024, Expires: 08/14/2024 [facility] Work Phone: Comment on above: Expected: 05/15/2024, Expires: Start: 05-15-2024 End: 05-15-2024 Patient encounter procedure 05/15/2024 2:00 PM EDT Appointment Radiation Oncology [address] [place], [place] [id number] Location: [email or web address] Comment on above: Location: [email or web address] Start: 05-12-2024 End: 05-12-2024 Patient encounter procedure 05/12/2024 2:00 PM EDT Appointment [facility] [address] [place], [place] [id number] Location: [email or web address] Comment on above: Location: [email or web address] Start: 05-11-2024 End: 05-11-2024 Patient encounter procedure 05/11/2024 2:00 PM EDT Appointment [facility] [address] [place], [place] [id number] Location: [email or web address] Comment on above: Location: [email or web address] Start: 05-10-2024 End: 05-10-2024 Patient encounter procedure 05/10/2024 2:00 PM EDT Appointment Radiation On[facility] [address] [place], [place] [id number] Location: [email or web address] Comment on above: Location: [email or web address] Start: 05-09-2024 End: 05-09-2024 Patient encounter procedure Radiation Oncology Comment on above: Location: [email or web address] Location: [facility] VISIT Start: 05-08-2024 End: 05-08-2024 Patient encounter procedure 05/08/2024 2:00 PM EDT Appointment Radiation On[facility] [address] [place], [place] [id number] Location: [email or web address] Comment on above: Location: [email or web address] Start: 05-05-2024 End: 05-05-2024 Patient encounter procedure 05/05/2024 2:00 PM EDT Appointment Radiation Oncology [address] [place] [address] Location: [email or web address] Comment on above: Location: [email or web address] Start: 05-04-2024 End: 05-04-2024 Patient encounter procedure 05/04/2024 2:00 PM EDT Appointment Radiation Oncology [address] [place] [address] Location: [email or web address] Comment on above: Location: [email or web address] Start: 05-03-2024 End: 05-03-2024 Patient encounter procedure 05/03/2024 2:00 PM EDT Appointment Radiation Oncology [address] [place] [id number] Location: [email or web address] Comment on above: Location: [email or web address] Start: 05-02-2024 End: 05-02-2024 Patient encounter procedure Radiation Oncology Comment on above: Location: [email or web address] Location: [facility] VISIT Start: 05-01-2024 End: 05-01-2024 Telephone follow-up 05/01/2024 3:30 PM EDT [facility] [address] [place] [id number] Hayley Gutierrez MD [address] [place] [address] 1 MONTH FOLLOW-UP - PHONE CALL Radiation Oncology Comment on above: 1 MONTH FOLLOW-UP - PHONE CALL Start: 05-01-2024 End: 05-01-2024 Patient encounter procedure 05/01/2024 2:00 PM EDT Appointment Radiation Oncology [address] [place] [id number] Location: [email or web address] Comment on above: Location: [email or web address] Start: 04-28-2024 End: 04-28-2024 Patient encounter procedure 04/28/2024 2:00 PM EST Appointment Radiation Oncology [address] [place] [address] Location: [email or web address] Comment on above: Location: [email or web address] Start: 04-27-2024 End: 04-27-2024 Patient encounter procedure 04/27/2024 2:00 PM EST Appointment Radiation Oncology [address] [place] [address] Location: [email or web address] Comment on above: Location: [email or web address] Start: 04-26-2024 End: 04-26-2024 Patient encounter procedure 04/26/2024 2:00 PM EST Appointment Radiation Oncology [address] [place] [address] Location: [email or web address] Comment on above: Location: [email or web address] Start: 04-25-2024 End: 04-25-2024 Patient encounter procedure Radiation Oncology Comment on above: Location: [email or web address] Location: [facility] TREAT MENT VISIT Start: 04-24-2024 End: 04-24-2024 Patient encounter procedure 04/24/2024 2:00 PM EST Appointment Radiation Oncology [address] [place] [address] Location: [email or web address] Comment on above: Location: [email or web address] Start: 04-21-2024 End: 04-21-2024 Patient encounter procedure 04/21/2024 2:00 PM EST Appointment Radiation Oncology [address] [place] [id number] Location: [email or web address] Comment on above: Location: [email or web address] Start: 04-20-2024 End: 04-20-2024 Patient encounter procedure 04/20/2024 2:00 PM EST Appointment Radiation Oncology [address] [place] [phone] Location: [email or web address] Comment on above: Location: [email or web address] Start: 04-20-2024 Patient referral [facility] Work Phone: Start: 04-19-2024 End: 04-19-2024 Patient encounter procedure 04/19/2024 2:00 PM EST Appointment Radiation Oncology [address] [place] [id number] Location: [email or web address] Comment on above: Location: [email or web address] Start: 04-18-2024 End: 04-18-2024 Patient encounter procedure Radiation Oncology Comment on above: Location: [email or web address] Location: [facility] TREAT MENT VISIT Start: 04-17-2024 End: 04-17-2024 Patient encounter procedure 04/17/2024 2:30 PM EST Appointment Radiation Oncology [address] [place] [phone] Hayley Gutierrez MD [address] [place] [phone] [facility] Rad[facility] Oncology Comment on above: [facility] Start: 04-03-2024 End: 04-03-2024 Follow-up encounter 04/03/2024 3:30 PM EST [facility] Radiation Oncology [address] [place] [phone] Hayley Gutierrez MD [address] [place] [phone] follow up Radiation Oncology Comment on above: follow up Start: 03-17-2024 End: 03-17-2024 Patient encounter procedure 03/17/2024 1:20 PM EST Office Visit [facility] [address] [place], [place] [phone] Debora Martinez PA-C [address] [place] [address] 6 month follow up [facility] Comment on above: 6 month follow up Start: 03-14-2024 End: 03-14-2024 Patient encounter procedure 03/14/2024 10:00 AM EST Office Visit Urology [address] [address] Ayan Jefferson Jr., MD [address] [place] [address] 2 week follow up Urology Comment on above: 2 week follow up Start: 02-29-2024 End: 02-29-2024 Patient encounter procedure 02/29/2024 1:00 PM EST Office Visit Urology [address] [address] Ayan Jefferson Jr., MD [address] [place], [place] [address] as per Estefania Martinez; prostrate bx Urology Comment on above: as per Estefania Martinez; prostrate bx Start: 02-23-2024 Advance Directive Discussion Advance Directive Discussion [facility] Start: 02-23-2024 Medicare Advantage Annual Wellness Visit Medicare [facility] Annual Wellness Visit [facility] Start: 02-19-2024 Hemoglobin A1c measurement HbA1C [facility] Start: 01-13-2024 End: 01-13-2024 Patient encounter procedure 01/13/2024 2:30 PM EST Office Visit [facility] [address] [place] [address] [phone] [place] [address] [place] [phone] as per Estefania Martinez; prostrate bx [facility] Comment on above: as per Estefania Martinez; prostrate bx Start: 12-04-2023 Annual PCP Team Chronic Disease Visit Annual PCP Team Chronic Disease Visit [facility] Start: 11-23-2023 End: 11-23-2023 Patient encounter procedure 11/23/2023 4:00 PM EDT Office Visit Urology [address] [place] [address] Brady Martinez PA-C [address] [place] [address] R97.20 (ICD-10-CM) - Elevated PSA Urology Comment on above: R97.20 (ICD-10-CM) - Elevated PSA Start: 11-23-2023 End: 02-22-2024 ISOPSA ASSAY FOR UROLOGY USE ONLY ISOPSA ASSAY FOR UROLOGY USE ONLY Lab Routine Elevated PSA Expected: 11/23/2023, Expires: 02/22/2024 [facility] Comment on above: Expected: 11/23/2023, Expires: Start: 11-05-2023 3 comp foot exam completed Diabetic Foot Exam [facility] Start: 11-05-2023 Annual PCP Team Chronic Disease Visit Annual PCP Team Chronic Disease Visit [facility] Start: 11-05-2023 BP Controlled (<130/80) BP Controlled (<130/80) [facility] inic Start: 11-05-2023 Diabetic foot examination Diabetic Foot Exam [facility] Start: 11-05-2023 Shingrix Vaccine (1 of 2) Shingrix Vaccine (1 of 2) [facility] Comment on above: Postponed from 01/05/2002 (Insurance Cov erage) Start: 11-05-2023 Urine microalbumin profile DTaP,Tdap,Td Vaccine (1 - Tdap) [facility] Comment on above: Postponed from 08/24/2012 (Insurance Cov erage) Start: 10-24-2023 Influenza vaccination Influenza Vaccine (#1) [facility] Start: 10-02-2023 Hepatitis B screening URINE ALBUMIN:CREATININE RATIO [facility] Start: 10-02-2023 Hepatitis B surface antibody level LDL CHOLESTEROL [facility] Start: 09-10-2023 End: 09-10-2023 Patient encounter procedure 09/10/2023 3:20 PM EDT Office Visit [facility] [address] [place], [place] [id number] Jorden Hartmann MD [address] [place], [place] [id number] Medicare Wellness [facility] Comment on above: Medicare Wellness Start: 08-25-2023 End: 08-25-2023 Patient encounter procedure 08/25/2023 3:20 PM EDT Office Visit [facility] [address] [place] [id number] Jorden Hartmann MD [address] [place], [place] [phone] wellness [facility] Comment on above: wellness Start: 08-22-2023 Influenza vaccination Influenza Vaccine (#1) [facility] Comment on above: Postponed from 10/23/2022 (Declined at t his time) Start: 08-20-2023 End: 11-19-2023 Hemoglobin A1c in Blood [facility] Comment on above: Expected: 08/20/2023, Expires: Start: 08-20-2023 End: 11-19-2023 Iron and Iron binding capacity panel - Serum or Plasma [facility] Comment on above: Expected: 08/20/2023, Expires: Start: 08-20-2023 End: 11-19-2023 LIPID PANEL, NONFASTING [facility] Comment on above: Expected: 08/20/2023, Expires: Start: 08-20-2023 End: 11-19-2023 Microalbumin/Creatinine [Mass Ratio] in Urine [facility] Work Phone: Comment on above: Expected: 08/20/2023, Expires: Start: 08-20-2023 End: 11-19-2023 Prostate Specific Ag Free [Mass/volume] in Serum or Plasma [facility] Comment on above: Expected: 08/20/2023, Expires: Start: 08-20-2023 End: 11-19-2023 Urinalysis complete panel - Urine [facility] Comment on above: Expected: 08/20/2023, Expires: Start: 04-23-2023 End: 06-23-2023 ALBUMIN/CREAT RATIO RND UR ALBUMIN/CREAT RATIO RND UR Lab Routine Uncontrolled type 2 diabetes mellitus with hyperglycemia (HCC) Type 2 diabetes mellitus without retinopathy (HCC) Type 2 diabetes mellitus with diabetic neuropathy, without long-term current use of insulin (HCC) Expected: 04/23/2023, Expires: 06/23/2023 [facility] Work Phone: Comment on above: Expected: 04/23/2023, Expires: Start: 04-23-2023 End: 06-23-2023 CBC W Auto Differential panel - Blood CBC + DIFF Lab Routine Uncontrolled type 2 diabetes mellitus with hyperglycemia (HCC) Type 2 diabetes mellitus without retinopathy (HCC) Type 2 diabetes mellitus with diabetic neuropathy, without long-term current use of insulin (HCC) Iron deficiency anemia, unspecified iron deficiency anemia type Expected: 04/23/2023, Expires: 06/23/2023 [facility] Work Phone: Comment on above: Expected: 04/23/2023, Expires: Start: 04-23-2023 End: 06-23-2023 Comprehensive metabolic 2000 panel - Serum or Plasma COMP METABOLIC PANEL Lab Routine Uncontrolled type 2 diabetes mellitus with hyperglycemia (HCC) Type 2 diabetes mellitus without retinopathy (HCC) Type 2 diabetes mellitus with diabetic neuropathy, without long-term current use of insulin (HCC) Essential hypertension Mixed hyperlipidemia Expected: 04/23/2023, Expires: 06/23/2023 [facility] Work Phone: Comment on above: Expected: 04/23/2023, Expires: Start: 04-23-2023 End: 06-23-2023 Hemoglobin A1c in Blood HGB A1C Lab Routine Uncontrolled type 2 diabetes mellitus with hyperglycemia (HCC) Type 2 diabetes mellitus without retinopathy (HCC) Type 2 diabetes mellitus with diabetic neuropathy, without long-term current use of insulin (HCC) Expected: 04/23/2023, Expires: 06/23/2023 [facility] Work Phone: Comment on above: Expected: 04/23/2023, Expires: 4 Start: 04-23-2023 End: 06-23-2023 Iron and Iron binding capacity panel - Serum or Plasma IRON + TIBC Lab Routine Iron deficiency anemia, unspecified iron deficiency anemia type Expected: 04/23/2023, Expires: 06/23/2023 [facility] Work Phone: Comment on above: Expected: 04/23/2023, Expires: 4 Start: 04-23-2023 End: 06-23-2023 LIPID PANEL, NONFASTING LIPID PANEL, NONFASTING Lab Routine Uncontrolled type 2 diabetes mellitus with hyperglycemia (HCC) Type 2 diabetes mellitus without retinopathy (HCC) Type 2 diabetes mellitus with diabetic neuropathy, without long-term current use of insulin (HCC) Essential hypertension Mixed hyperlipidemia Coronary artery disease involving [place] coronary artery of [place] heart without angina pectoris Expected: 04/23/2023, Expires: 06/23/2023 [facility] Work Phone: Comment on above: Expected: 04/23/2023, Expires: Start: 04-23-2023 End: 06-23-2023 Prostate specific Ag [Mass/volume] in Serum or Plasma PSA/PROSTSPECAG DIAG Lab Routine Elevated PSA Expected: 04/23/2023, Expires: 06/23/2023 [facility] Work Phone: Comment on above: Expected: 04/23/2023, Expires: Start: 04-23-2023 End: 06-23-2023 Urinalysis complete panel - Urine URINALYSIS, WITH MICROSCOPIC Lab Routine Uncontrolled type 2 diabetes mellitus with hyperglycemia (HCC) Type 2 diabetes mellitus without retinopathy (HCC) Type 2 diabetes mellitus with diabetic neuropathy, without long-term current use of insulin (HCC) Essential hypertension Mixed hyperlipidemia Expected: 04/23/2023, Expires: 06/23/2023 [facility] Work Phone: Comment on above: Expected: 04/23/2023, Expires: Start: 04-03-2023 Hemoglobin A1c measurement HbA1C [facility] Start: 04-03-2023 Hemoglobin A1c/Hemoglobin.total in Blood HBA1C [facility] Start: 04-01-2023 ANNUAL PCP TEAM CHRONIC DISEASE VISIT ANNUAL PCP TEAM CHRONIC DISEASE VISIT [facility] Start: 04-01-2023 COVID-19 VACCINE (3 - Booster for Moderna series) COVID-19 VACCINE (3 - Booster for Moderna series) [facility] Comment on above: Postponed from 07/17/2020 (Declined at t his time) Start: 04-01-2023 COVID-19 VACCINE (3 - Moderna series) COVID-19 VACCINE (3 - Moderna series) [facility] Comment on above: Postponed from 07/17/2020 (Declined at t his time) Start: 03-17-2023 Hepatitis B surface antibody level LDL CHOLESTEROL [facility] Start: 02-22-2023 Advance Directive Discussion Advance Directive Discussion [facility] Start: 10-23-2022 Covid-19 Vaccine ( season) Covid-19 Vaccine () [facility] Start: 10-23-2022 Influenza vaccination INFLUENZA (#1) [facility] Start: 10-22-2022 3 comp foot exam completed DIABETIC FOOT EXAM [facility] Start: 10-22-2022 ANNUAL PCP TEAM CHRONIC DISEASE VISIT ANNUAL PCP TEAM CHRONIC DISEASE VISIT [facility] Start: 10-22-2022 BP CONTROLLED (<130/80) BP CONTROLLED (<130/80) [facility] in Start: 10-22-2022 SHINGRIX VACCINE (1 of 2) SHINGRIX VACCINE (1 of 2) [facility] Comment on above: Postponed from 01/05/2002 (Insurance Cov erage) Start: 10-22-2022 Urine microalbumin profile DTAP,TDAP,TD (1 - Tdap) [facility] Comment on above: Postponed from 08/24/2012 (Insurance Cov erage) Start: 10-15-2022 Glaucoma screening Dilated Retinal Exam [facility] Start: 10-15-2022 Hepatitis C antibody, confirmatory test DILATED RETINAL EXAM [facility] Start: 10-09-2022 Hepatitis B screening URINE ALBUMIN:CREATININE RATIO [facility] Start: 10-09-2022 Hepatitis B surface antibody level LDL CHOLESTEROL [facility] Start: 09-18-2022 End: 11-18-2022 ALBUMIN/CREAT RATIO RND UR ALBUMIN/CREAT RATIO RND UR Lab Routine Type 2 diabetes mellitus without retinopathy (HCC) Uncontrolled type 2 diabetes mellitus with hyperglycemia (HCC) Type 2 diabetes mellitus with diabetic neuropathy, without long-term current use of insulin (HCC) Expected: 09/18/2022, Expires: 11/18/2022 [facility] Work Phone: Comment on above: Expected: 09/18/2022, Expires: Start: 09-18-2022 End: 11-18-2022 CBC W Auto Differential panel - Blood CBC + DIFF Lab Routine Iron deficiency anemia, unspecified iron deficiency anemia type Type 2 diabetes mellitus without retinopathy (HCC) Uncontrolled type 2 diabetes mellitus with hyperglycemia (HCC) Type 2 diabetes mellitus with diabetic neuropathy, without long-term current use of insulin (HCC) Expected: 09/18/2022, Expires: 11/18/2022 [facility] Work Phone: Comment on above: Expected: 09/18/2022, Expires: 3 Start: 09-18-2022 End: 11-18-2022 Comprehensive metabolic 2000 panel - Serum or Plasma COMP METABOLIC PANEL Lab Routine Type 2 diabetes mellitus without retinopathy (HCC) Uncontrolled type 2 diabetes mellitus with hyperglycemia (HCC) Type 2 diabetes mellitus with diabetic neuropathy, without long-term current use of insulin (HCC) Essential hypertension Mixed hyperlipidemia Expected: 09/18/2022, Expires: 11/18/2022 [facility] Work Phone: Comment on above: Expected: 09/18/2022, Expires: 3 Start: 09-18-2022 End: 11-18-2022 Hemoglobin A1c in Blood HGB A1C Lab Routine Type 2 diabetes mellitus without retinopathy (HCC) Uncontrolled type 2 diabetes mellitus with hyperglycemia (HCC) Type 2 diabetes mellitus with diabetic neuropathy, without long-term current use of insulin (HCC) Expected: 09/18/2022, Expires: 11/18/2022 [facility] Work Phone: Comment on above: Expected: 09/18/2022, Expires: 3 Start: 09-18-2022 End: 11-18-2022 Iron and Iron binding capacity panel - Serum or Plasma IRON + TIBC Lab Routine Iron deficiency anemia, unspecified iron deficiency anemia type Expected: 09/18/2022, Expires: 11/18/2022 [facility] Work Phone: Comment on above: Expected: 09/18/2022, Expires: 3 Start: 09-18-2022 End: 11-18-2022 LIPID PANEL, NONFASTING LIPID PANEL, NONFASTING Lab Routine Uncontrolled type 2 diabetes mellitus with hyperglycemia (HCC) Type 2 diabetes mellitus with diabetic neuropathy, without long-term current use of insulin (HCC) Essential hypertension Mixed hyperlipidemia Coronary artery disease involving [place] coronary artery of [place] heart without angina pectoris Expected: 09/18/2022, Expires: 11/18/2022 [facility] Work Phone: Comment on above: Expected: 09/18/2022, Expires: Start: 09-18-2022 End: 11-18-2022 Prostate Specific Ag Free [Mass/volume] in Serum or Plasma PSA FREE Lab Routine Elevated PSA Expected: 09/18/2022, Expires: 11/18/2022 [facility] Work Phone: Comment on above: Expected: 09/18/2022, Expires: 3 Start: 09-18-2022 End: 11-18-2022 Urinalysis complete panel - Urine URINALYSIS, WITH MICROSCOPIC Lab Routine Type 2 diabetes mellitus without retinopathy (HCC) Uncontrolled type 2 diabetes mellitus with hyperglycemia (HCC) Type 2 diabetes mellitus with diabetic neuropathy, without long-term current use of insulin (HCC) Essential hypertension Mixed hyperlipidemia Expected: 09/18/2022, Expires: 11/18/2022 [facility] Work Phone: Comment on above: Expected: 09/18/2022, Expires: Start: 09-14-2022 Hemoglobin A1c/Hemoglobin.total in Blood HBA1C [facility] Start: 08-21-2022 Influenza vaccination INFLUENZA (#1) [facility] Comment on above: Postponed from 10/23/2021 (Declined at t his time) Start: 04-11-2022 Hemoglobin A1c/Hemoglobin.total in Blood HBA1C [facility] Start: 04-10-2022 End: 06-10-2022 CBC W Auto Differential panel - Blood CBC + DIFF Lab Routine Iron deficiency anemia, unspecified iron deficiency anemia type Type 2 diabetes mellitus without retinopathy (HCC) Uncontrolled type 2 diabetes mellitus with hyperglycemia (HCC) Type 2 diabetes mellitus with diabetic neuropathy, without long-term current use of insulin (HCC) Expected: 04/10/2022, Expires: 06/10/2022 [facility] Work Phone: Comment on above: Expected: 04/10/2022, Expires: 3 Start: 04-10-2022 End: 04-19-2023 Hemoglobin A1c in Blood HGB A1C Lab Routine Type 2 diabetes mellitus without retinopathy (HCC) Uncontrolled type 2 diabetes mellitus with hyperglycemia (HCC) Type 2 diabetes mellitus with diabetic neuropathy, without long-term current use of insulin (HCC) Expected: 04/10/2022, Expires: 06/10/2022 [facility] Work Phone: Comment on above: Expected: 04/10/2022, Expires: 3 Start: 04-10-2022 End: 06-10-2022 LIPID PANEL, NONFASTING LIPID PANEL, NONFASTING Lab Routine Type 2 diabetes mellitus without retinopathy (HCC) Uncontrolled type 2 diabetes mellitus with hyperglycemia (HCC) Type 2 diabetes mellitus with diabetic neuropathy, without long-term current use of insulin (HCC) Essential hypertension Mixed hyperlipidemia Coronary artery disease involving [place] coronary artery of [place] heart without angina pectoris Ischemic cardiomyopathy Expected: 04/10/2022, Expires: 06/10/2022 [facility] Work Phone: Comment on above: Expected: 04/10/2022, Expires: 3 Start: 04-10-2022 End: 06-10-2022 Prostate Specific Ag Free [Mass/volume] in Serum or Plasma PSA FREE Lab Routine Elevated PSA Expected: 04/10/2022, Expires: 06/10/2022 [facility] Work Phone: Comment on above: Expected: 04/10/2022, Expires: 3 Start: 10-23-2021 Influenza vaccination INFLUENZA (#1) [facility] Start: 07-18-2021 Hepatitis C antibody, confirmatory test DILATED RETINAL EXAM [facility] Start: 11-15-2020 Screening for malignant neoplasm of colon Colonoscopy [facility] Start: 10-22-2020 COVID-19 VACCINE (3 - Booster for Moderna series) COVID-19 VACCINE (3 - Booster for Moderna series) [facility] Start: 03-08-2020 FECAL OCCULT BLOOD FECAL OCCULT BLOOD [facility] Start: 03-08-2020 Screening for malignant neoplasm of colon Fecal Occult Blood [facility] Start: 08-24-2012 Urine microalbumin profile DTaP,Tdap,Td Vaccine (1 - Tdap) [facility] Start: 2012 Hepatitis B Vaccine (1 of 3 - Risk 3-dose series) Hepatitis B Vaccine (1 of 3 - Risk 3-dose series) [facility] Start: 2012 RSV Vaccine (1 - 1-dose 60+ series) RSV Vaccine (1 - 1-dose 60+ series) [facility] Start: 2012 RSV Vaccine (1 - Risk 60-74 years 1-dose series) RSV Vaccine (1 - Risk 60-74 years 1-dose series) [facility] Start: 01-05-2002 Shingrix Vaccine (1 of 2) Shingrix Vaccine (1 of 2) [facility] Start: 01-05-1997 COLOGUARD (FIT-DNA) COLOGUARD (FIT-DNA) [facility] Start: 01-05-[address] COLONOGRAPHY [facility] Start: 01-05-1997 Screening for malignant neoplasm of colon [facility] Start: 01-05-1997 SIGMOIDOSCOPY SIGMOIDOSCOPY [facility] Start: 01-05-1971 Shingrix Vaccine (1 of 2) Shingrix Vaccine (1 of 2) [facility] End: 11-03-2025 CT Chest WO contrast CT CHEST WO IVCON Radiology Routine Chronic systolic congestive heart failure (HCC) Coronary artery disease involving [place] coronary artery of [place] heart without angina pectoris Nonrheumatic mitral valve regurgitation Preoperative testing Encounter for screening for cardiovascular disorders 1 Occurrences starting 10/04/2024 until 11/03/2025 [facility] Comment on above: 1 Occurrences starting 10/04/2024 until 11/03/2025 CT Guidance for radi ation treatment of Unspecified body region CT SIM PLANNING RADIATION ONCOLOGY Radiology Routine Prostate cancer (HCC) Ordered: 04/13/2024 [facility] Work Phone: Comment on above: Ordered: 04/13/2024 End: 10-04-2025 ECHO TRANSESOPHAGEAL ECHO TRANSESOPHAGEAL Cardiology Routine Chronic systolic congestive heart failure (HCC) Coronary artery disease involving [place] coronary artery of [place] heart without angina pectoris Nonrheumatic mitral valve regurgitation Preoperative testing Encounter for screening for cardiovascular disorders 1 Occurrences starting 10/04/2024 until 10/04/2025 [facility] Comment on above: 1 Occurrences starting 10/04/2024 until 10/04/2025 MR Cervical spine [facility] MR Lumbar spine [facility] End: 08-31-2025 NM Heart Perfusion W stress and W radionuclide IV NM CARDIAC PERF STRESS/PHARM Radiology Routine Coronary artery disease due to lipid rich plaque 1 Occurrences starting 08/01/2024 until 08/31/2025 [facility] Comment on above: 1 Occurrences starting 08/01/2024 until 08/31/2025 NM Heart Perfusion W stress and W radionuclide IV NM CARDIAC PERF STRESS/PHARM Radiology Routine Coronary artery disease due to lipid rich plaque 09/05/2024 4:01 PM EDT [facility] Work Phone: Patient referral [facility] Work Phone: POST VOID RESIDUAL POST VOID RES IDUAL Procedures Routine Elevated PSA Screening for genitourinary condition Ordered: 11/23/2023 [facility] Work Phone: Comment on above: Ordered: 11/23/2023 PROSTATE BIOPSY GUKI PROSTATE BI OPSY GUKI Procedures Routine Elevated prostate specific antigen (PSA) Ordered: 12/03/2023 [facility] Work Phone: Comment on above: Ordered: 12/03/2023 SURGICAL PATHOLOGY SURGICAL PATH OLOGY Lab Routine Elevated prostate specific antigen (PSA) Ordered: 02/29/2024 [facility] Work Phone: Comment on above: Ordered: 02/29/2024 UA DIP, URINE (POC) UA DIP, URIN E (POC) Lab Routine Elevated prostate specific antigen (PSA) Ordered: 02/29/2024 [facility] Comment on above: Ordered: 02/29/2024 UA DIP, URINE (POC) UA DIP, URIN E (POC) Lab Routine Ordered: 03/14/2024 [facility] Work Phone: Comment on above: Ordered: 03/14/2024 End: 11-25-2025 US Abdomen RUQ US ABD RIGHT UPPER QUADRANT Radiology Routine Elevated alkaline phosphatase level 1 Occurrences starting 10/26/2024 until 11/25/2025 [facility] Work Phone: Comment on above: 1 Occurrences starting 10/26/2024 until 11/25/2025 End: 10-04-2025 US Carotid arteries - bilateral US CAROTID ARTERIES [facility] Vascular Lab Routine Chronic systolic congestive heart failure (HCC) Coronary artery disease involving [place] coronary artery of [place] heart without angina pectoris Nonrheumatic mitral valve regurgitation Preoperative testing Encounter for screening for cardiovascular disorders 1 Occurrences starting 10/04/2024 until 10/04/2025 [facility] Work Phone: Comment on above: 1 Occurrences starting 10/04/2024 until 10/04/2025 [facility] Immunizations Immunization Date Immunization Notes Care Provider [facility] 12-03-2022 influenza (HD-IIV4) vaccine, age 65+ yr, high dose, quadrivalent, PF (FLUZONE HIGH-DOSE) [place] 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: [facility] 12-03-2022 influenza virus vacc ine, unspecified formulation Jorden Hartmann MD Work Phone: [facility] 12-18-2020 influenza, high-dose , quadrivalent vaccine (FLUZONE HIGH DOSE QUADRIVALENT) Jorden Hartmann MD Work Phone: [facility] 12-18-2020 influenza virus vacc ine, unspecified formulation Jorden Hartmann MD Work Phone: [facility] 12-06-2019 influenza, high-dose , quadrivalent vaccine (FLUZONE HIGH DOSE QUADRIVALENT) Jorden Hartmann MD Work Phone: [facility] 01-26-2019 influenza, high dose seasonal, preservative-free Jorden Hartmann MD Work Phone: [facility] 11-17-2017 influenza, high dose seasonal, preservative-free Jorden Hartmann MD Work Phone: [facility] 11-17-2017 pneumococcal polysaccharide vaccine, 23 valent Jorden Hartmann MD Work Phone: [facility] 12-29-2016 influenza, injectabl e, quadrivalent, contains preservative Jorden Hartmann MD Work Phone: [facility] 03-19-2016 influenza, injectabl e, quadrivalent, preservative free Jorden Hartmann MD Work Phone: [facility] 03-13-2015 pneumococcal conjuga te vaccine, 13 valalexx Hartmann MD Work Phone: [facility] Work Phone: 08-23-2012 pneumococcal polysaccharide vaccine, 23 valent Jorden Hartmann MD Work Phone: [facility] Work Phone: 08-23-2012 tetanus and diphther ia toxoids, adsorbed, preservative free, for adult use (2 Lf of tetanus toxoid and 2 Lf of diphtheria toxoid) Jorden Hartmann MD Work Phone: [facility] Work Phone: Payers Date Payer Category Payer Unknown [id number] 2024 Medicaid [employer] [id number] 2024 Medicare [id number] 2024 Self-pay [id number] 2024 Medicaid [id number] 2023 Medicare (Managed Care) [id number] 2023 Unknown [id number] 2021 Medicare [id number] 2019 Unknown [employer]UE [employer] S AND BLUE SHIELD AN[employer]M MEDICARE ADVANTAGE HMO [id number] 2019-2021 [address] [place] [address] HMO [id number] 2013 Unknown [id number] Medicare [id number] Medicare [id number] Unknown [id number] 462 Unknown [id number] 462 Unknown [id number] 462 Unknown [id number]. 462 Unknown [id number] 462 Unknown [id number] 462 Unknown [id number] 462 Unknown [id number] 462 Unknown [id number] 462 Unknown [id number]. 462 Unknown [id number] 462 Unknown [id number] 462 Social History Date Type Detail Facility Start: 02-22-1969 End: 10-30-2024 Tobacco smoking status PRIS Smokes tobacco daily [facility] Start: [birth year]-22-1969 History of tobacco use Cigarette Smoker [facility] Start: 10-22-2021 End: 10-07-2022 Cigarettes smoked current (pack per day) - Reported 0.3 [facility] Start: 10-22-2021 End: 10-30-2024 Tobacco use and exposure Smokeless tobacco non-user [facility] Start: 10-22-2021 End: 10-30-2024 Alcohol intake Current drinker of alcohol (finding) [facility] Start: 10-07-2012 History SDOH Alcohol Comment few drinks per year [facility] Start: 05-25-2014 End: 10-22-2021 Tobacco Comment started smoking 20yo, usually 4 cigarettes per day [facility] Start: 1950 Sex Assigned At Not on file [facility] Start: 11-06-2019 End: 10-22-2021 Exposure to SARS-CoV-2 (event) Not sure [facility] Start: 04-01-2022 End: 10-07-2022 Tobacco use panel [facility] Start: 01-24-2012 Adult Depression Screening Assessment 0 [facility] How often to you hav e a drink containing alcohol? Monthly or less [facility] How many standard drinks containing alcohol do you have on a typical day? 1 or 2 [facility] How often do you hav e 6 or more drinks on 1 occasion? Never [facility] Start: 05-11-2014 None None [facility] Start: 05-11-2014 Alone Alone [facility] Start: 05-11-2014 Cigarettes Cigarettes [facility] Start: 05-15-2024 Sex Male (finding) [facility] Start: 1950 Sex Assigned At Male [facility] Start: 05-26-2024 Tobacco smoking status PRIS Current Light tobacco smoker [facility] Start: 09-20-2024 Tobacco Comment started smokin g 20yo, usually 5 cigarettes per day [facility] NEGATED: Highlighted rowStart: NINF History of tobacco use Passive smoker [facility] Medical Equipment Procedure Code Equipment Code Equipment Origin al Text Equipment Identifier Dates [id number], [id number], [id number], [id number], [id number], [id number] Start: 03-02-2019 End: 04-28-2023 Comment on above: Test blood sugar(s) 2 times daily. Dx: Other DM Code E11.42 Insulin: No Goals Date Patient Goal Desired Activity /State Personal health goal Personal health goal Personal health goal Functional Status Date Assessment Result Facility 07-27-2014 Are you deaf, or do you have serious difficulty hearing No 07/27/2014 2:17 PM EDT Hanane Diaz RN No [facility] Work Phone: 07-27-2014 Are you blind, or do you have serious difficulty seeing, even when wearing glasses No 07/27/2014 2:17 PM EDT Hanane Diaz RN No [facility] 07-27-2014 Do you have serious difficulty walking or climbing stairs No 07/27/2014 2:17 PM EDT Hanane Diaz RN No [facility] 07-27-2014 Do you have difficul ty dressing or bathing No 07/27/2014 2:17 PM EDT Hanane Diaz RN No [facility] 07-27-2014 Because of a physica l, mental, or emotional condition, do you have difficulty doing errands alone such as visiting a physician's office or shopping No 07/27/2014 2:17 PM EDT Hanane Diaz RN No [facility] Mental Status Date Assessment Result Facility 07-27-2014 Because of a physica l, mental, or emotional condition, do you have serious difficulty concentrating, remembering, or making decisions No 07/27/2014 2:17 PM EDT Hanane Diaz RN No [facility] Clinical Notes 10-12-2014 to 11-26-2024 Telephone Encounter - Lilliana De La Vega RN - 11/01/2024 11:30 AM EDTTelephone Encounter - Lilliana De La Vega RN - 11/01/2024 11:30 AM Palmira Jensen APRN.CNP - 10/31/2024 1:39 PM EDT Note Date & Type Note Facility 11-26-2024 Note HNO ID: [id number] Author: BEBETO CLARK MD Service: ? Author Type: Physician Type: Plan of Care Filed: 11/26/2024 12:00 Note Text: Good morning, I called the patient to inquire regarding multiple joint/back pain. He has had this problem for a while. He also complains of heartburn. Denies any angina or dyspnea. I have made a referral to gastroenterology. Will try to see him sooner in our cardiology/interventional clinic. Bebeto Clark MD, [facility] 11-20-2024 Note HNO ID: [id number] Author: SHILOH KAPLAN RDMS Service: ? Author Type: Track Man Type: Progress Notes Filed: 11/20/2024 15:35 Note Text: Radiology Service Progress Note PATIENT NAME: Victor Hugo Sheth DATE OF SERVICE: November 20, 2024 TIME: 3:35 PM PATIENT IDENTITY VERIFICATION COMPLETED USING TWO (2) IDENTIFIERS: Name and Date of confirmed by patient verbally. FALL SCREENING: Has the patient had 2 falls in the last year or 1 fall with injury or currently using an Ambulatory Assistive Device (Walker, Cane, Wheelchair, Crutches, etc.)? No PATIENT GENDER DATA: Assigned male at PATIENT RELEVANT IMPLANT DATA REVIEWED: Not Applicable PATIENT PRESENTS WITH AN IMPLANTABLE OR ATTACHED DUPLICATING MACHINE MECHANIC: No RADIOLOGY DEPARTMENT: Ultrasound PERIPHERAL IV DATA: Not applicable SIGNED BY: Shiloh Kaplan RDMS November 20, 2024 3:35 PM [facility] 11-17-2024 Note HNO ID: [id number] Author: AMIRA WHITE MA Service: ? Author Type: Dairy Inspector Type: Progress Notes Filed: 11/17/2024 09:20 Note Text: [facility]erral [facility] Pain MgmtDr. Billingsley with request to contact pt to help assist in setting up appt. Paperwork faxed to [phone]. Amira White MA [facility] 11-16-2024 Note HNO ID: [id number] Author: JORDEN HARTMANN MD Service: ? Author Type: Physician Type: Progress Notes Filed: 11/16/2024 21:01 Note Text: Chief Complaint Patient presents with: Follow Up HPI Victor Hugo Sheth is a 74 year old male who presents here today for a follow up. Patient here today for a follow up. Recent Intracoronary stent placed on 11/09/24 at [facility] due to NSTEMI. Victor Hugo Sheth is a 74-year-old male follow-up after a recent stent placement. Victor Hugo presents for follow-up after a recent stent placement. He reports experiencing heartburn over the past few days and has been using Vaishali-Carmel for relief, but was advised to discontinue its use. He denies any fevers, dyspnea, wheezing, cough, hemoptysis, chest pain, palpitations, or lower extremity edema since the procedure. He also reports multiple areas of pain, including the wrists, neck, lower back, and knees, which have been affecting his sleep. He has been using Tylenol and Advil for pain management, but notes that these medications are no longer effective and he is concerned about potential kidney issues. He inquires about alternative pain management options. Past medical history, appointments, medications, allergies reviewed. Previous Medical History PAST MEDICAL HISTORY Diagnosis Date Advance directive discussed with patient 10/22/2021 Discussed 09/2021 Arthritis of both knees 12/12/2019 CAD (coronary artery disease), [place] coronary artery 05/14/[address] Khalil [facility] 05/14/[address] [facility] report from [facility], showed 85% stenosis in pLAD followed by 95% stenosis and 50-75% stenosis in mid LAD. Minimal disease in LCx and LCA. RCA with proximal and distal 25% stenosis. [facility] 05/17 s/p YESENIA x2 to LAD Plan: Dc home with follow-up Continue Plavix Carpal tunnel syndrome of right wrist 10/27/2013 EMG/NCT 10/27/13=mild right CTS Chronic systolic congestive heart failure (HCC) 03/13/2015 08/02/2018: Home BP Cuff Validated. Home BP: 118/71 Office BP: 116/72 Combined forms of age-related cataract of both eyes 06/15/2016 Combined forms of age-related cataract, bilateral 06/15/2016 Congestive heart failure (HCC) 03/13/2015 COPD with chronic bronchitis (HCC) 03/13/2015 Corneal scar, right eye 07/18/2020 DDD (degenerative disc disease), cervical DDD (degenerative disc disease), lumbar 12/07/2019 Depression with anxiety Diabetic eye exam (HCC) 05/15/2015 Last done 06/27/2018: no retinopathy. Dry eye syndrome of both eyes 07/18/2020 Elevated alkaline phosphatase level 10/26/2024 (: GGT, microcardial Ab Neg. Liver portion elevated: Elevated PSA 01/26/2019 Encounter for Medicare annual wellness exam 11/17/2017 Medicare Part B: 12/23/2016 last done: 09/10/2023 Does not want ELMO or colonoscopy Essential hypertension 09/19/2018 Gastroesophageal reflux disease without esophagitis 03/13/2015 History of compression fracture of spine 1971 high school football History of non-ST elevation myocardial infarction (NSTEMI) 11/16/2024 S/p PCI w/ YESENIA to proximal LAD 10/2024 Iron deficiency anemia 09/26/2019 Iron deficiency anemia 09/26/2019 EGD and colonoscopy done 10/2019 Ischemic cardiomyopathy 05/25/2014 Leukocytosis 09/19/2018 Repeat 10/2018 ok Living will in place 10/22/2021 DPA: Jon (son) Medicare annual wellness visit, initial 11/17/2017 Medicare Part B: 12/23/2016 last done: 01/26/2019 Does not want ELMO or colonoscopy Mixed hyperlipidemia 09/13/2012 Neck pain 10/04/2013 Obesity, Class I, BMI 30-34.9 09/26/2024 Obesity, Class II, BMI 35-39.9 05/13/2017 Presence of drug coated stent in LAD coronary artery 05/25/2014 Prostate cancer (HCC) 03/03/2024 Smoker 03/13/2015 Started at 20 yo up to 2 PPD. as of 02/2015 only 5 cigs a day Tachycardia 10/30/2014 Thrombocytosis 09/19/2018 Repeat 10/2018 ok Type 2 diabetes mellitus with diabetic neuropathy, without long-term current use of insulin (HCC) 11/20/2015 Type 2 diabetes mellitus without retinopathy (HCC) 10/12/2014 Vitreous floaters of both eyes 10/12/2014 Previous Surgical History PAST SURGICAL HISTORY Procedure Laterality Date COLONOSCOPY FLX DX W/COLLJ SPEC WHEN PFRMD 11/16/2019 Colonoscopy ESOPHAGOGASTRODUODENOSCOPY TRANSORAL DIAGNOSTIC 11/16/2019 EGD HEART CATHETERIZATION 05/14/2014 triple vessel disease, YESENIA x 2 to the prox and mid LAD IMMUNOCHEMICAL FECAL OCCULT BLOOD TEST 03/08/2019 negative PAST SURGICAL HISTORY OF 1970 vertebral fracture in football? no repair. PAST SURGICAL HISTORY OF N/A 11/09/2024 Intracoronary stent placed - [facility] REPAIR FINGER TENDON left hand- cut tendons with chain saw TONSILLECTOMY AND ADENOIDECTOMY AGE 14/> 1982 TONSILLECTOMY HX Family History FAMILY HISTORY Problem Relation Age of Onset Emphysema Father Coronary Artery Disease Brother CABG Hypertension Brother Prostate Cancer Brother Patient Allergies ALLERGIES Allergen Reactions Rybe (more content not included)... [facility] 11-10-2024 Note HNO ID: [id number] Author: MALLIKA DEGROOT CPhT Service: Pharmacy Author Type: Tree Thinner Type: Plan of Care Filed: 11/10/2024 15:28 Note Text: PHARMACY BEDSIDE DELIVERY SERVICE Patient Name: Victor Hugo Sheth The marked outpatient medications were Filled at: [facility] and delivered to the patient's bedside to patient Medication List START taking these medications nitroglycerin sublingual 0.4 mg SL tablet Commonly known as: NITROQUICK Dissolve 1 tablet under the tongue every 5 minutes as needed for chest pain. sacubitril-valsartan 24-26 mg tablet Commonly known as: ENTRESTO Take 1 tablet by mouth two times a day. ticagrelor 90 mg tablet Commonly known as: BRILINTA Take 1 tablet by mouth two times a day. CHANGE how you take these medications aspirin, enteric coated 81 mg EC tablet Commonly known as: ASPIRIN, ENTERIC COATED Take 1 tablet by mouth once daily. What changed: when to take this additional instructions CONTINUE taking these medications albuterol HFA 90 mcg/actuation inhaler Commonly known as: PROVENTIL HFA, VENTOLIN HFA Inhale 2 Puffs as instructed every 4 hours as needed. atorvastatin 80 mg tablet Commonly known as: LIPITOR Take 1 tablet by mouth daily at bedtime. blood sugar diagnostic test strip Commonly known as: BLOOD GLUCOSE TEST Test blood sugar(s) 2 times daily. Dx: Other DM Code E11.42 Insulin: No Blood-Glucose Meter Test Blood Sugars 2 times daily Dx E11.42 Insulin: No empagliflozin 25 mg tablet Commonly known as: JARDIANCE Take 1 tablet by mouth daily with breakfast. ezetimibe 10 mg tablet Commonly known as: ZETIA Take 1 tablet by mouth once daily. glimepiride 4 mg tablet Commonly known as: AMARYL Take 1 tablet by mouth two times a day with meals. Lancets Test blood sugar(s) 2 times daily. Dx: Other DM Code E11.42 Insulin: No metFORMIN 1,000 mg tablet Commonly known as: GLUCOPHAGE Take 1 tablet by mouth two times a day with meals. metoprolol succinate ER 50 mg 24 hr tablet Commonly known as: TOPROL XL Take 1 tablet by mouth once daily. oxybutynin ER 10 mg 24 hr tablet Commonly known as: DITROPAN XL Take 1 tablet by mouth once daily. SITagliptin phosphate 100 mg tablet Commonly known as: JANUVIA Take 1 tablet by mouth once daily. sodium chloride 0.9 % (flush) syringe Commonly known as: BD POSIFLUSH Inject 2-10 mL intravenously as directed. For Echo procedure You might also be taking other medications not listed above. If you have questions about any of your other medications, talk to the person who prescribed them or your Primary Care Provider. STOP taking these medications FREESTYLE ADRIAN 10 DAY READER Generic drug: flash glucose scanning reader FREESTYLE ADRIAN 10 DAY SENSOR Kit Generic drug: flash glucose sensor lisinopril 10 mg tablet Commonly known as: ZESTRIL metoprolol tartrate (short acting) 25 mg tablet Commonly known as: LOPRESSOR Mallika Degroot [facility] PAGER: Mallika Degroot [id number] 11/10/24 3:28 PM November 10, 2024 3:[address] [facility] 11-10-2024 Note HNO ID: [id number] Author: SELVIN FRANCO RN Service: Care Management Author Type: Registered Nurse Type: Care Mgt Initial Assessment Filed: 11/10/2024 13:07 Note Text: CARE MANAGEMENT: ASSESSMENT AND DISCHARGE PLAN SERVICE DATE: November 10, 2024 SERVICE TIME: 12:59 PM PCP: Jorden Hartmann MD Primary Contact: Extended Emergency Contact Information Primary Emergency Contact: Jon Sheth Mobile Relation: Child Admission Status: Inpatient Insurance Provider: JODY CARUSO MEDICARE Discharge Planning requested by: Per Department Practice Potential Transition Plans Home Advance Directives Current Advance Directive: Health Care Power of [employer] Repairer In Chart: No [employer] Attempted to Assist with AD Completion: Yes Action: Education Provided Current Living Arrangements and Support Lives with: Alone Type of Residence: Private Residence (House) Does the patient have to climb stairs at home?: No Support: Family members, Friends/neighbors, Children How do you manage to accomplish the following: Independent: Ambulation, Bathe/Shower, Dress, Meals/Meal Prep, Going to the bathroom, Medication Management, Transportation to appointments/community Current Services/Equipment Current Post-Acute Service(s): DME Current DME Type: Glucometer device and supplies Discharge Planning Patient Goal(s): General wellness, Be able to go home [place] of Choice Explained: [place] of Choice Given: No Reason Not Given: No placements necessary Are you interested in bedside delivery of your medications? Yes Discharge Planning Participant(s): Patient Patient/Family Comments: Caregiver Assessment: Caregiver is ready, willing and able to meet the patient's needs as recommended by the inter-professional team: No Caregiver needed Transport at Discharge: Transportation Arrangements: Car Destination: Home Needs Prior to Discharge: Needs Prior to Discharge: Discharge Prescriptions, Pharmacy Bedside Delivery Post-Acute Discharge Plan: Epic notes reviewed and discussed patient with team in [facility]. Met with patient at bedside to identify potential discharge needs. Patient resides alone in ranch-style home. Very active normally. 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 Drives self to appts. Has only a glucometer. No services. (+) PCP (+) RX. [facility] [place]. Anticipate home with self-care at discharge. CM to follow. SIGNATURE: Selvin Franco RN PATIENT NAME: Victor Hugo Sheth DATE: November 10, 2024 TIME: 12:[address] [facility] 11-10-2024 Note HNO ID: [id number] Author: BEBETO CLARK MD Service: Cardiovascular Medicine Author Type: Physician Type: Progress Notes Filed: 11/30/2024 12:10 Note Text: CVICU PROGRESS NOTE PATIENT NAME: Victor Hugo Sheth ADMITTED FOR: Elective PCI LOS: 1 Subjective INTERVAL EVENTS No acute events overnight. Morning labs stable. Objective OBJECTIVE BP 143/83 Pulse 100 Temp 36.6 ?C (97.9 ?F) (Temporal) Resp 17 Ht 170.2 cm (5' 7) Wt 102.4 kg (225 lb 12 oz) SpO2 93% BMI 35.36 kg/m? Temp (24hrs), Av.7 ?C (98 ?F), Min:36.6 ?C (97.8 ?F), Max:36.9 ?C (98.4 ?F) Body mass index is 35.36 kg/m?., Hemoglobin A1C (%) Date Value 09/25/2024 7.7 04/14/2021 7.6 Intake/Output Summary (Last 24 hours) at 11/10/2024 0709 Last data filed at 11/10/2024 0400 Gross per 24 hour Intake 1000 ml Output 1600 ml Net -600 ml Physical Exam Constitutional: General: He is not in acute distress. Appearance: Normal appearance. HENT: Head: Normocephalic. Nose: Nose normal. Mouth/Throat: Mouth: Mucous membranes are moist. Eyes: Pupils: Pupils are equal, round, and reactive to light. Cardiovascular: Rate and Rhythm: Normal rate and regular rhythm. Pulses: Normal pulses. Heart sounds: Normal heart sounds. Pulmonary: Effort: Pulmonary effort is normal. No respiratory distress. Breath sounds: Normal breath sounds. Abdominal: General: Abdomen is flat. Palpations: Abdomen is soft. Musculoskeletal: General: Normal range of motion. Cervical back: Normal range of motion. Skin: Capillary Refill: Capillary refill takes less than 2 seconds. Neurological: General: No focal deficit present. Mental Status: He is alert and oriented to person, place, and time. Sensory: No sensory deficit. Motor: No weakness. Psychiatric: Mood and Affect: Mood normal. CURRENT MEDICATIONS: IV infusions: Scheduled medications:aspirin, enteric coated, 81 mg, DAILY ticagrelor, 90 mg, BID atorvastatin, 80 mg, AT BEDTIME ezetimibe, 10 mg, DAILY trospium, 20 mg, BID AC heparin, 5,000 Units, q 8 H insulin lispro, , w MEALS metoprolol succinate ER, 25 mg, BID PRN:NaCl 0.9%, 20 mL, PRN acetaminophen, 650 mg, q 6 H PRN nitroglycerin sublingual, 0.4 mg, q 5 MIN PRN atropine, 0.4 mg, PRN(NO DISPENSE) benzocaine-menthol, 1 lozenge, q 2 H PRN albuterol HFA, 2 puff, q 4 H PRN dextrose, 15 g, PRN Or glucagon, 1 mg, PRN Or dextrose 10%, 12.5 g, PRN LABORATORY: Cardiac:No results for input(s): CKTEST, CKMB, CKMBP, TROPONIN, BNP in the last 168 hours. BLOOD GAS: CBC: Recent Labs 11/10/24 0611 11/09/24 1028 WBC 9.29 8.83 HB 14.0 13.6 HCT 42.9 41.7 PLT 384 373 MCV 90.3 91.2 RDWCV 14.1 14.2 COAG: No results for input(s): APTT, INR in the last 168 hours. CMP: Recent Labs 11/10/24 0611 11/09/24 1028 GLUC 157* 167* NA 138 136 K 4.5 4.6 CHLOR 102 99 CO2 24 24 ANION 12 13 BUN 21 20 CREAT 0.90 0.87 URINALYSIS:No results for input(s): PH, SPGR, UGLUC, UBILI, UKET, UHB, UPROT, UROBIL, UWBC, SSA in the last 168 hours. Invalid input(s): NITR BLOOD GAS: Microbiology: Positive Micro-30 Days No results found for the last 720 hours. IMAGING: No orders to display Lines, Drains, and Airways Line Duration Peripheral 11/09/24 0741 Short Left Forearm 20 Gauge <1 day ASSESSMENT AND PLAN #CAD, s/p PCI YESENIA to proximal LAD; prior PCI to mid LAD #Hx of HFrEF, EF 22% 09/05 #Hx of HTN #Hx of Diabetes #Hx of urgency #MMP - Continue ASA/Brillinta - Continue Statin - Resume home meds as able - Continue GDMT as able - Waiting for ECHO - Okay for D/C today, after ECHO Code Status: Full Code Checklist: OT DC REC: PT DC REC: Daily labs: CBC, RFP Telemetry: Indicated Diet: DIET HEART HEALTHY GI Prophylaxis: Not indicated DVT Prophylaxis: Appropriate Anticoagulant AND Antiplatelet Medications (From admission, onward) Start Dose Route Frequency Last Action Ordered Stop 11/10/24 0900 aspirin, enteric coated 81 mg tab(s) 81 mg PO DAILY Ordered 11/09/24 0911 -- 11/09/24 09 ticagrelor 90 mg tab(s) (BRILINTA) 90 mg PO 2 TIMES DAILY Given, 11/09 203211/09/24 0911 -- 11/09/24 0930 heparin 5,000 Units injection (Medical Risk Categories) 5,000 Units SQ EVERY 8 HOURS Given, 11/11 60711/09/24 0924 -- Plan of care discussed with: Dr. Clark CVICU SERVICE PAGER: For questions and/or concerns please page #[phone]. For consultation please page #[phone]. ATTRIBUTION: Some elements have been copied from previous note, including the physical exam completed in entirety today, but have been updated where appropriate, and reflect current medical decision making from today, 11/10/2024. SIGNATURE: Hiren Townsend MD PATIENT NAME: Victor Hugo Sheth DATE: November 10, 2024 TIME: 7:09 AM PAGER#: [phone] [facility] STAFF PHYSICIAN NOTE OF PERSONAL INVOLVEMENT IN CARE Patient seen and examin (more content not included)... [facility] 11-09-2024 Note HNO ID: [id number] Author: BEBETO CLARK MD Service: Cardiovascular Medicine Author Type: Physician Type: Plan of Care Filed: 11/09/2024 14:19 Note Text: Patient seen and examined at the bedside. Denies any angina or dyspnea. Hemodynamically stable. Access site clean dry and intact. Will continue with current medical therapy for now. Continue close observation in cardiovascular ICU overnight. Bebeto Clark MD, MD [facility] 11-09-2024 Note HNO ID: [id number] Author: MALLIKA DEGROOT CPhT Service: Pharmacy Author Type: Tree Thinner Type: Plan of Care Filed: 11/09/2024 11:35 Note Text: Reason for test claim: Cardiology Brilinta (ticagrelor) Medication: Brilinta 90 mg tablets Qty: 60 tablets Day supply: 30 days Cost on Insurance: $0 Does patient have a deductible? No No - Patient has already exhausted their once per lifetime use of voucher, unable to use voucher again No - Patient has government/federal insurance and is ineligible to use copay card Total number of saenz checks: 1 . Any questions, please reach out the medication dining room coordinator. Thank you. (Prices may vary at different pharmacy locations, this is the cost at [facility] on November 09, 2024 ). [facility] 11-01-2024 Telephone encounter Note LVM for Victor Hugo Velezpaulino to return call to confirm procedure date and receive pre-procedure instructions. When they return call, please confirm date and relay the following instructions: You have been scheduled for a Direct Percutaneous Coronary Intervention (PCI) on 11/09/[address] Clark. Instructions: Your arrival time will be between 7-9 am Senior Research Executive will call you between 2-5 pm the day before your procedure to notify you of your assigned arrival time. If your procedure date is on a Wednesday, phlebotomy lab assistant will call the Wednesday afternoon prior to your procedure. If your procedure date follows a holiday, phlebotomy lab assistant will call the afternoon prior to the holiday. Please report to the Heart & Vascular Entrance at [facility] at your assigned time. [facility] address: [address] [place] [address] The Heart & Vascular entrance is on the 1st floor and is across the street from a tall glass building. Please park in the deck next to the glass building. You may have your usual food the day prior to your procedure. Please increase your water intake the day prior to your procedure. After midnight you should not eat or drink, but you may drink water to stay hydrated. Medications: With a sip of water on the morning of your procedure, take: Baby Aspirin 81 mg & your antiplatelet medication Plavix Also take lisinopril, metoprolol - if your regular morning medication(s) If you take diuretic medication(s), please hold the morning of procedure HOLD metformin the day prior & the morning of your procedure Labs: Completed 10/24/24 Most patients will go home the same day. If you have an intervention, you may need to stay overnight for observation. You must have someone drive you home when you are released from the hospital and you are not to be alone the first evening. If you have any questions or concerns, you may reply to this message via My Chart ~or~ contact our office at [phone] - Option #3 Nursing. Lilliana De La Vega RN [facility] 11-01-2024 Miscellaneous Notes M for Victor Hugo Sheth to return call to confirm procedure date and receive pre-procedure instructions. When they return call, please confirm date and relay the following instructions: You have been scheduled for a Direct Percutaneous Coronary Intervention (PCI) on 11/09/[address] Clark. Instructions: Your arrival time will be between 7-9 am Senior Research Executive will call you between 2-5 pm the day before your procedure to notify you of your assigned arrival time. If your procedure date is on a Wednesday, phlebotomy lab assistant will call the Wednesday afternoon prior to your procedure. If your procedure date follows a , phlebotomy lab assistant will call the afternoon prior to the holiday. Please report to the Heart & Vascular Entrance at [facility] at your assigned time. [facility] address: [address] [place] [address] The Heart & Vascular entrance is on the 1st floor and is across the street from a tall glass building. Please park in the deck next to the glass building. You may have your usual food the day prior to your procedure. Please increase your water intake the day prior to your procedure. After midnight you should not eat or drink, but you may drink water to stay hydrated. Medications: With a sip of water on the morning of your procedure, take: Baby Aspirin 81 mg & your antiplatelet medication Plavix Also take lisinopril, metoprolol - if your regular morning medication(s) If you take diuretic medication(s), please hold the morning of procedure HOLD metformin the day prior & the morning of your procedure Labs: Completed 10/24/24 Most patients will go home the same day. If you have an intervention, you may need to stay overnight for observation. You must have someone drive you home when you are released from the hospital and you are not to be alone the first evening. If you have any questions or concerns, you may reply to this message via My Chart ~or~ contact our office at [phone] - Option #3 Nursing. Lilliana De La Vega, RN Schedule Direct PCI on 11/09/[address] Clark documented in this encounter [facility] 11-01-2024 Telephone encounter Note Schedule Direct PCI on 11/09/[address] Clark [facility] 10-31-2024 Note HNO ID: [id number] Author: PALMIRA RUSSELL APRN.TIEN Service: ? Author Type: Nurse Practitioner Type: Progress Notes Filed: 10/31/2024 13:53 Note Text: MULTI DISCIPLINARY HIGH RISK AVR CARDIAC TEAM Members present: Dr. Baltazar, Dr. Stevenson, Dr. Tafoya, Dr. Rust, Dr. Garcia, Dr. Ortega, Dr. Eid, Dr. Clark, Vega Ontiveros APRN, CNP, Augustus Gallego CNP, MARCIA Ibarra., MARCIA Weaver, Rachel Thomas PA, Jaspal Burden PA, Mandeep Fraga CNP, Demetrio Byrd CNP, Augustus Russell CNP Presenting Physician: see members listed above PATIENT NAME:Victor Hugo Sheth DATE: 10/31/2024 Outcome: Victor Hugo Sheth history and imaging were reviewed by the physicians in attendance. Pt scheduled for CABG with Dr. Bowden, reviewed case during meeting to discuss need for possible IABP given poor EF. After review of films, it was determined that patient would best be serviced by re-cath w/IVUS and then high risk PCI given there only has one major lesion that needs revascularization. These recommendations will be communicated to the patient by myself and patient is agreeable to continue with high risk PCI and cancel surgery. Order has been placed for PCI. Palmira Russell APRN.CNP 10/31/2024 [facility] 10-31-2024 History of Presen t illness Narrative MULTI DISCIPLINARY HIGH RISK AVR CARDIAC TEAM Members present: Dr. Baltazar, Dr. Stevenson, Dr. Tafoya, Dr. Rust, Dr. Garcia, Dr. Ortega, Dr. Eid, Dr. Clark, Vega Ontiveros APRN, CNP, Augustus Gallego CNP, MARCIA Ibarra., Rachel Corbett PA, Rachel Thomas PA, Jaspal Burden PA, Mandeep Fraga, CLEANING AND MAINTENANCE WORKER, Demetrio Byrd CNP, Augustus Russell CNP Presenting Physician: see members listed above PATIENT NAME:Victor Hugo Sheth DATE: 10/31/2024 Outcome: Victor Hugo Sheth history and imaging were reviewed by the physicians in attendance. Pt scheduled for CABG with Dr. Bowden, reviewed case during meeting to discuss need for possible IABP given poor EF. After review of films, it was determined that patient would best be serviced by re-cath w/IVUS and then high risk PCI given there only has one major lesion that needs revascularization. These recommendations will be communicated to the patient by myself and patient is agreeable to continue with high risk PCI and cancel surgery. Order has been placed for PCI. Palmira Russell APRN.CNP 10/31/2024 documented in this encounter [facility] 10-31-2024 Note HNO ID: [id number] Author: PALMIRA RUSSELL APRN.CNP Service: ? Author Type: Nurse Practitioner Type: Progress Notes Filed: 10/31/2024 13:21 Note Text: opened in error [facility] 10-31-2024 History of Presen t illness Narrative opened in error documented in this encounter [facility] 10-31-2024 Telephone encounter Note noted [facility] 10-31-2024 Miscellaneous Notes noted Patient calls and notified of results and providers instructions. Patient verbalizes understanding. Reports that he is having open heart surgery on 11/07/2024 and wants to wait until after procedure to have US completed. Isabel Dodson RN Called and left message on patients voicemail to return call to the office and ask to speak with a FM triage nurse. Amira White MA Called and left message on patients voicemail to return call to the office and ask to speak with a FM triage nurse. Amira White MA Let patient know his Alk phos is improved but still slightly elevated. The fraction test showed mainly coming from the liver. Want to get a liver US. The other liver labs were ok. documented in this encounter [facility] 10-31-2024 Telephone encounter Note Patient calls and notified of results and providers instructions. Patient verbalizes understanding. Reports that he is having open heart surgery on 11/07/2024 and wants to wait until after procedure to have US completed. Isabel Dodson RN [facility] 10-31-2024 Telephone encounter Note Called and left message on patients voicemail to return call to the office and ask to speak with a FM triage nurse. Amira White MA [facility] 10-30-2024 Note HNO ID: [id number] Author: ZO BOWDEN MD Service: ? Author Type: Physician Type: Progress Notes Filed: 10/30/2024 16:05 Note Text: CHIEF COMPLAINT: Established Patient (CABG then PAT) and Coronary Artery Disease HISTORY OF PRESENT ILLNESS: Mr. Sheth is a 74 year old male who presents today for a follow-up visit, he denies chest pain or shortness of breath. He states he understands why he cannot undergo PCI. He has completed his RHC and ISABELLE which demonstrate mild to moderately elevated PA pressures with preserved CI, EF 20%, mild MR, and trace TRWilton Gay reports that he has been smoking cigarettes. He started smoking about 55 years ago. He has a 16.7 pack-year smoking history. He has never been exposed to tobacco smoke. He has never used smokeless tobacco. I personally obtained the history of present illness. HISTORIES: PAST MEDICAL HISTORY Diagnosis Date Advance directive discussed with patient 10/22/2021 Discussed 09/2021 Arthritis of both knees 12/12/2019 CAD (coronary artery disease), [place] coronary artery 05/14/[address] Khalil [facility] 05/14/[address] [facility] report from [facility], showed 85% stenosis in pLAD followed by 95% stenosis and 50-75% stenosis in mid LAD. Minimal disease in LCx and LCA. RCA with proximal and distal 25% stenosis. [facility] 05/17 s/p YESENIA x2 to LAD Plan: Dc home with follow-up Continue Plavix Carpal tunnel syndrome of right wrist 10/27/2013 EMG/NCT 10/27/13=mild right CTS Chronic systolic congestive heart failure (HCC) 03/13/2015 08/02/2018: Home BP Cuff Validated. Home BP: 118/71 Office BP: 116/72 Combined forms of age-related cataract of both eyes 06/15/2016 Combined forms of age-related cataract, bilateral 06/15/2016 Congestive heart failure (HCC) 03/13/2015 COPD with chronic bronchitis (HCC) 03/13/2015 Corneal scar, right eye 07/18/2020 DDD (degenerative disc disease), cervical DDD (degenerative disc disease), lumbar 12/07/2019 Depression with anxiety Diabetic eye exam (HCC) 05/15/2015 Last done 06/27/2018: no retinopathy. Dry eye syndrome of both eyes 07/18/2020 Elevated alkaline phosphatase level 10/26/2024 (: GGT, microcardial Ab Neg. Liver portion elevated: Elevated PSA 01/26/2019 Encounter for Medicare annual wellness exam 11/17/2017 Medicare Part B: 12/23/2016 last done: 09/10/2023 Does not want ELMO or colonoscopy Essential hypertension 09/19/2018 Gastroesophageal reflux disease without esophagitis 03/13/2015 History of compression fracture of spine 1971 high school football Iron deficiency anemia 09/26/2019 Iron deficiency anemia 09/26/2019 EGD and colonoscopy done 10/2019 Ischemic cardiomyopathy 05/25/2014 Leukocytosis 09/19/2018 Repeat 10/2018 ok [address] will in place 10/22/2021 DPA: Jon (son) Medicare annual wellness visit, initial 11/17/2017 Medicare Part B: 12/23/2016 last done: 01/26/2019 Does not want ELMO or colonoscopy Mixed hyperlipidemia 09/13/2012 Neck pain 10/04/2013 Obesity, Class II, BMI 35-39.9 05/13/2017 Presence of drug coated stent in LAD coronary artery 05/25/2014 Prostate cancer (HCC) 03/03/2024 Smoker 03/13/2015 Started at 20 yo up to 2 PPD. as of 02/2015 only 5 cigs a day Tachycardia 10/30/2014 Thrombocytosis 09/19/2018 Repeat 10/2018 ok Type 2 diabetes mellitus with diabetic neuropathy, without long-term current use of insulin (HCC) 11/20/2015 Type 2 diabetes mellitus without retinopathy (HCC) 10/12/2014 Vitreous floaters of both eyes 10/12/2014 PAST SURGICAL HISTORY Procedure Laterality Date COLONOSCOPY FLX DX W/COLLJ SPEC WHEN PFRMD 11/16/2019 Colonoscopy ESOPHAGOGASTRODUODENOSCOPY TRANSORAL DIAGNOSTIC 11/16/2019 EGD HEART CATHETERIZATION 05/14/2014 triple vessel disease, YESENIA x 2 to the prox and mid LAD IMMUNOCHEMICAL FECAL OCCULT BLOOD TEST 03/08/2019 negative PAST SURGICAL HISTORY OF 1971 vertebral fracture in football? no repair. REPAIR FINGER TENDON left hand- cut tendons with chain saw TONSILLECTOMY AND ADENOIDECTOMY AGE 14/> 1982 TONSILLECTOMY HX SOCIAL HISTORY[1]MEDICATIONS: Current Outpatient Medications Medication Sig ezetimibe (ZETIA) 10 mg tablet Take 1 tablet by mouth once daily. oxybutynin ER (DITROPAN XL) 10 mg 24 hr tablet Take 1 tablet by mouth once daily. metFORMIN (GLUCOPHAGE) 1,000 mg tablet Take 1 tablet by mouth two times a day with meals. metoprolol succinate ER (TOPROL XL) 50 mg 24 hr tablet Take 1 tablet by mouth once daily. atorvastatin (LIPITOR) 80 mg tablet Take 1 tablet by mouth daily at bedtime. glimepiride (AMARYL) 4 mg tablet Take 1 tablet by mouth two times a day with meals. clopidogrel (PLAVIX) 75 mg tablet Take 1 tablet by mouth once daily. empagliflozin (JARDIANCE) 25 mg tablet Take 1 tablet by mouth daily with breakfast. lisinopril (ZESTRIL) 10 mg tablet Take 1 tablet by mouth once daily. SITagliptin phosphate (JANUVIA) 100 mg tablet Take 1 tablet by mouth once daily. blood go (more content not included)... [facility] 10-30-2024 History of Presen t illness Narrative CHIEF COMPLAINT: Established Patient (CABG then PAT) and Coronary Artery Disease HISTORY OF PRESENT ILLNESS: Mr. Sheth is a 74 year old male who presents today for a follow-up visit, he denies chest pain or shortness of breath. He states he understands why he cannot undergo PCI. He has completed his RHC and ISABELLE which demonstrate mild to moderately elevated PA pressures with preserved CI, EF 20%, mild MR, and trace TRWilton Gay reports that he has been smoking cigarettes. He started smoking about 55 years ago. He has a 16.7 pack-year smoking history. He has never been exposed to tobacco smoke. He has never used smokeless tobacco. I personally obtained the history of present illness. HISTORIES: PAST MEDICAL HISTORY Diagnosis Date Advance directive discussed with patient 10/22/2021 Discussed 09/2021 Arthritis of both knees 12/12/2019 CAD (coronary artery disease), [place] coronary artery 05/14/[address] Khalil [facility] 05/14/[address] [facility] report from [facility], showed 85% stenosis in pLAD followed by 95% stenosis and 50-75% stenosis in mid LAD. Minimal disease in LCx and LCA. RCA with proximal and distal 25% stenosis. [facility] 05/17 s/p YESENIA x2 to LAD Plan: Dc home with follow-up Continue Plavix Carpal tunnel syndrome of right wrist 10/27/2013 EMG/NCT 10/27/13=mild right CTS Chronic systolic congestive heart failure (HCC) 03/13/2015 08/02/2018: Home BP Cuff Validated. Home BP: 118/71 Office BP: 116/72 Combined forms of age-related cataract of both eyes 06/15/2016 Combined forms of age-related cataract, bilateral 06/15/2016 Congestive heart failure (HCC) 03/13/2015 COPD with chronic bronchitis ([facility]) 03/13/2015 Corneal scar, right eye 07/18/2020 DDD (degenerative disc disease), cervical DDD (degenerative disc disease), lumbar 12/07/2019 Depression with anxiety Diabetic eye exam ([facility]) 05/15/2015 Last done 06/27/2018: no retinopathy. Dry eye syndrome of both eyes 07/18/2020 Elevated alkaline phosphatase level 10/26/2024 (: GGT, microcardial Ab Neg. Liver portion elevated: Elevated PSA 01/26/2019 Encounter for Medicare annual wellness exam 11/17/2017 Medicare Part B: 12/23/2016 last done: 09/10/2023 Does not want ELMO or colonoscopy Essential hypertension 09/19/2018 Gastroesophageal reflux disease without esophagitis 03/13/2015 History of compression fracture of spine 1971 high school football Iron deficiency anemia 09/26/2019 Iron deficiency anemia 09/26/2019 EGD and colonoscopy done 10/2019 Ischemic cardiomyopathy 05/25/2014 Leukocytosis 09/19/2018 Repeat 10/[address] in place 10/22/2021 DPA: Jon (son) Medicare annual wellness visit, initial 11/17/2017 Medicare Part B: 12/23/2016 last done: 01/26/2019 Does not want ELMO or colonoscopy Mixed hyperlipidemia 09/13/2012 Neck pain 10/04/2013 Obesity, Class II, BMI 35-39.9 05/13/2017 Presence of drug coated stent in LAD coronary artery 05/25/2014 Prostate cancer (HCC) 03/03/2024 Smoker 03/13/2015 Started at 20 yo up to 2 PPD. as of 02/2015 only 5 cigs a day Tachycardia 10/30/2014 Thrombocytosis 09/19/2018 Repeat 10/2018 ok Type 2 diabetes mellitus with diabetic neuropathy, without long-term current use of insulin ([facility]) 11/20/2015 Type 2 diabetes mellitus without retinopathy (HCC) 10/12/2014 Vitreous floaters of both eyes 10/12/2014 PAST SURGICAL HISTORY Procedure Laterality Date COLONOSCOPY FLX DX W/COLLJ SPEC WHEN PFRMD 11/16/2019 Colonoscopy ESOPHAGOGASTRODUODENOSCOPY TRANSORAL DIAGNOSTIC 11/16/2019 EGD HEART CATHETERIZATION 05/14/2014 triple vessel disease, YESENIA x 2 to the prox and mid LAD IMMUNOCHEMICAL FECAL OCCULT BLOOD TEST 03/08/2019 negative PAST SURGICAL HISTORY OF 1971 vertebral fracture in football? no repair. REPAIR FINGER TENDON left hand- cut tendons with chain saw TONSILLECTOMY & ADENOIDECTOMY AGE 14/> 1981 TONSILLECTOMY HX SOCIAL HISTORY[1]MEDICATIONS: Current Outpatient Medications Medication Sig ezetimibe (ZETIA) 10 mg tablet Take 1 tablet by mouth once daily. oxybutynin ER (DITROPAN XL) 10 mg 24 hr tablet Take 1 tablet by mouth once daily. metFORMIN (GLUCOPHAGE) 1,000 mg tablet Take 1 tablet by mouth two times a day with meals. metoprolol succinate ER (TOPROL XL) 50 mg 24 hr tablet Take 1 tablet by mouth once daily. atorvastatin (LIPITOR) 80 mg tablet Take 1 tablet by mouth daily at bedtime. glimepiride (AMARYL) 4 mg tablet Take 1 tablet by mouth two times a day with meals. clopidogrel (PLAVIX) 75 mg tablet Take 1 tablet by mouth once daily. empagliflozin (JARDIANCE) 25 mg tablet Take 1 tablet by mouth daily with breakfast. lisinopril (ZESTRIL) 10 mg tablet Take 1 tablet by mouth once daily. SITagliptin phosphate (JANUVIA) 100 mg tablet Take 1 tablet by mouth once daily. blood sugar diagnostic (BLOOD GLUCOSE TEST) test strip Test blood sugar(s) 2 times daily. Dx: Other DM Code E11.42 Insulin: No albuterol HFA (PROVENTIL HFA, VENTOLIN HFA) 90 mcg/actuation inhaler Inhale 2 Puffs as instructed every 4 hours as needed. Lancets lancets Test blood sugar(s) 2 times daily. Dx: Other DM Code E11.42 Insulin: No Blood-Glucose Meter Test Blood Sugars 2 times daily Dx E11.42 Insulin: No acetaminophen (TYLENOL) 500 mg tablet Take 2 tablets by mouth one time only for 1 dose. Please take morning of surgery. aspirin, enteric coated (ASPIRIN, ENTERIC COATED) 81 mg EC tablet Take 1 tablet by mouth one time only for 1 dose. Take morning of surgery. metoprolol tartrate, short acting, (LOPRESSOR) 25 mg tablet Take 1 tablet by mouth one time only for 1 dose. Take morning of surgery. mupirocin (BACTROBAN) 2 % ointment Apply to affected area two times a day for 5 days. Please apply small amount to each nostril twice daily using Q-tip, starting 5 days prior to surgery and morning of surgery. Chlorhexidine Gluconate (PERIDEX) 0.12 % solution Use 15 mL as instructed two times a day for 5 days. Rinse around mouth for 30 seconds then expectorate twice daily starting 5 days prior to surgery and morning of surgery. sodium chloride 0.9 %, flush, (BD POSIFLUSH) syringe Inject 2-10 mL intravenously as directed. For Echo procedure (Patient not taking: Reported on 10/30/2024) flash glucose sensor (FREESTYLE ADRIAN 10 DAY SENSOR) kit 1 Each one time a week. Check blood sugar twice a day (Patient not taking: Reported on 10/30/2024) flash glucose scanning reader (FREESTYLE ADRIAN 10 DAY READER) 1 Device twice daily. Check blood sugar twice a day (Patient not taking: Reported on 10/30/2024) No current facility-administered medications for this visit. ALLERGIES Allergen Reactions Rybelsus [Semagluti* Diarrhea REVIEW OF SYSTEMS: 12 point ROS completed and negative other than HPI I personally interviewed, confirmed and edited the above information if obtained by others. PHYSICAL EXAMINATION: BP 138/80 (BP Site: Left Arm, BP Position: Sitting, BP Cuff Size: Large Adult) Pulse 104 Ht 5' 7 (1.702 m) Wt 227 lb 9.6 oz (103.2 kg) SpO2 96% BMI 35.65 kg/m General: Healthy, alert, no distress, cooperative Skin: No lesions, rashes or ulcerations; normal color and turgor. HENT: NC/AT Eyes: PERRL Carotid: No bruits and no JVD CV: RRR, normal S1 and S2 Lungs: CTAB Abd: ND/NT Extremities: no edema Neuro: Awake, alert, and oriented., Gait normal. Sensation grossly intact., CN II-XII grossly intact. IMAGING: CT chest without contrast with lung nodules and mildly dilated ascending aorta Carotid duplex with no significant disease IMPRESSION: Mr. Sheth is a 74 year old male with severe LAD disease. PLAN: Will discuss at multidisciplinary conference tomorrow for consideration of preop IABP placement. Will plan on CABG (NEAL to LAD) on 11/07/24. STS PROM, risks, benefits, and alternatives were discussed. All questions were answered and he wishes to proceed. We discussed the importance of smoking cessation as even a week without cigarettes would help with postoperative extubation and pulmonary toilet. Pt states he will attempt to avoid cigarettes before surgery. Zo Bowden MD [1] Social History Tobacco Use Smoking status: Every Day Current packs/day: 0.30 Average packs/day: 0.3 packs/day for 55.7 years (16.7 ttl pk-yrs) Types: Cigarettes Start date: 1967 Passive exposure: Never Smokeless tobacco: Never Tobacco comments: started smoking 20yo, usually 5 cigarettes per day Vaping Use Vaping status: Never Used Substance Use Topics Alcohol use: Yes Comment: few drinks per year Drug use: Never Procedure Type: Isolated CABG Perioperative Outcome Estimate % Operative Mortality 3.13% Morbidity & Mortality 14.7% Stroke 1.09% Renal Failure 1.99% Reoperation 2.72% Prolonged Ventilation 11.4% Deep Sternal Wound Infection 0.5% Long Hospital Stay (>14 days) 8.82% Short Hospital Stay (<6 days)* 26.9% Procedure Type: CABG + AVR Perioperative Outcome Estimate % Operative Mortality 4.55% Morbidity & Mortality 29.7% Stroke 2.81% Renal Failure 4.04% Reoperation 6.73% Prolonged Ventilation 21.3% Deep Sternal Wound Infection 0.569% Long Hospital Stay (>14 days) 14.3% Short Hospital Stay (<6 days)* 18% Clinical Summary Planned Surgery: CABG + AVR, Elective, First cardiovascular surgery Demographics: 74 year old, male, 102.7kg, 170.2cm, BMI: 35.4 kg/m Lab Values: Creatinine: 0.91 mg/dL, Hematocrit: 47.3%, WBC Count: 8.93 10 /?L, Platelet Count: 305150 cells/?L PreOp Medications: Oral diabetes control Substance Abuse: Current smoker Risk Factors / Comorbidities: Diabetes Mellitus , Hypertension, Family Hx of CAD Pulmonary RF: Severe CLD Cardiac Status: Chronic heart failure, Ejection Fraction = 20% Coronary Artery Disease: 3 vessels diseased, Non-ST Elevation LA, LA: > 21 Days Valve Disease: Aortic Stenosis, Trivial/Trace MR CARDIAC REHAB 5 METER WALK TEST SERVICE DATE: 10/30/2024 SERVICE TIME: 1:27PM 4.85 sec 4.28 sec 4.45 sec ASSESSMENT: SIGNATURE: Earlene Marshall LPN PATIENT NAME: Victor Hugo Sheth DATE: October 30, 2024 TIME: 1:32 PM PAGER/CONTACT #: [phone] documented in this encounter [facility] 10-30-2024 Instructions Palmira Russell APRN.CLEANING AND MAINTENANCE WORKER - 10/30/2024 1:58 PM EDT Pre-Admission Patient Instruction You are scheduled for surgery (inpatient) located on the 2nd Floor on: 11/07 (your surgery date is subject to change should there be emergencies prior to your scheduled OR time). Come in the Front Doors / Main Entrance of the hospital. No need to stop at front entrance registration. Please check in to the Surgery [facility] (2nd Floor) at: 6 AM Nothing by mouth after midnight: Do not eat or drink anything, including water and coffee, after 12 AM on the morning of your surgery, EXCEPT about 8-10 oz of clear liquid. This is important because if you do, your surgery may have to be cancelled. Eat a light supper the evening before surgery or follow specific doctor's instructions. Clear fluid allowed are: water, gatorade, other clear electrolytes drinks, clear juice (nothing floating in it), coffee/tea (black with or without sugar) Clear soda, jello without fruit, popsicles. Drinks NOT allowed: milk, cream or non dairy creamers, juice with pulp, coffee/tea w/cream, beer/wine/alcohol, smoothies or protein drinks Oral hygiene and a shower or bath is required the evening before and the morning of surgery. Use the prescribed mouth wash and Hibiclens body wash that has been supplied to you. Do not chew gum/mints, or use oral spray the morning of surgery. Notify your doctor if you develop a cold, sore throat, fever or other changes in your physical condition or come in contact with someone who is ill. No alcohol 24 hours before or after surgery and refrain from smoking the morning of surgery and immediately following surgery. Leave valuables such as rings, watches and money at home. Remove all make-up and nail korean before admission. We need to check your circulation. Remove jewelry from all piercings, tongue included, as no metal can go into surgery. Wear loose, comfortable clothing that will accommodate bandages. You will be asked to remove glasses or contacts, and/or your denture prior to surgery. Please bring a case. Your belongings will be kept in an assigned locker until we know your new room after procedure. Please bring your CPAP or BIPAP or any necessary medical equipments, we will keep them in an assigned locker until you are assigned a post-op room. Your length of stay will be determined by your surgeon/surgery team, the anesthesiologist as well as your post of progress. On the morning of surgery, your point of contact will be instructed on communication regarding surgery updates. Please bring a list of any medication you are taking including dose and the condition for which you are being treated. Medications to stop in preparing surgery: Stop Anticoagulant: Plavix, last dose on: 11/01 Stop lisinopril 24 hours before surgery, last dose on: 11/05 Stop Metformin 24 hours before surgery, last dose on: 11/05 Stop Jardiance 3 days before scheduled surgery, last dose: 11/03 Stop Januvia and Glimepiride 2 days prior to surgery, last dose: 11/04 Stop all NSAIDs, such as, Aleve, Naprosyn, Ibuprofen, Motrin one week prior to surgery. Stop all over the counter vitamins and minerals one week prior to surgery. Please continue your medications as normal UNLESS noted above. Please ONLY take the medications listed below the DAY OF SURGEY. Infection control and prevention: For nose- Mupirocin ointment: Please get a pea sized amount on a q-tip to apply inside your nose twice daily for five days prior to surgery. For mouth- Peridex therapy should be initiated for surgery prophylaxis 5 days prior surgery. Recommended use is twice daily oral rinsing for 30 seconds, morning and evening after toothbrushing. Usual dosage is 15ml (marked in cap) of undiluted Peridex. Please do not rinse with water or other mouthwashes, brush teeth or eat immediately after using Peridex. Peridex is not intended for ingestion and should be expectorated after rinsing. For body- Hibiclens body wash the night before and morning of surgery. If you are positive of MRSA, you would need shower daily with the Hibiclens body solution for 5 days total (you can get additional amount from any local drug store). Nutritional support Instruction: Please continue eating your usual heart healthy diet Please increase your protein intake the week before surgery; via over the counter diabetic friendly protein drinks Medications to take with small amount of fluid in the morning of surgery: Aspirin 81 mg Metoprolol tartrate 25mg Tylenol 1000 mg If you have respiratory inhaler, please give yourself a treatment prior to come in If you are diabetic, please check you blood sugar prior to come in PLEASE COMPLETE THE SHOWER, MOUTH WASH, NASAL OINTMENT, FINISH YOUR DRINK AND PRE-OP MEDICATIONS NO LATER THAN 5:30 AM, THANKS. Please call office at [phone] or [email or web address] message me if you have additional questions, Thanks. Palmira Russell APRN.CLEANING AND MAINTENANCE WORKER 10/30/24 HOW TO USE AN INCENTIVE SPIROMETER Using your incentive spirometer after surgery will help you keep your lungs clear. The incentive spirometer also will help keep your lungs active when you are recovering from surgery, as if you were at home performing your daily activities. HOW TO USE YOUR INCENTIVE SPIROMETER: Sit on the edge of your bed if possible, or sit up far as you can in bed. Hold the incentive spirometer in an upright position. Place the mouthpiece in your mouth and seal your lips tightly around it. Breathe in slowly and as deeply as possible, raising the yellow piston toward the top of the column. The yellow coach cleaner indicator should be in the blue outlined area. Hold your breath as long a possible (at least for 5 seconds). Allow the piston to fall to the bottom of the column. Rest for a few seconds and repeat Steps 1 to 5 at least 10 times every hour when you are awake. Position the yellow indicator on the left side of the spirometer to show your best effort. Use the indicator as a goal to work toward during each repetition. After each set of ten deep breaths, practice coughing to be sure your lungs are clear. If you have an incision, support your incision when coughing by placing pillow firmly against it. Once you are able to get out of bed, walk in the hallway and cough well, you may stop using the incentive spirometer unless otherwise instructed by your health care provider. documented in this encounter [facility] 10-30-2024 Note HNO ID: [id number] Author: PALMIRA RUSSELL APRN.TIEN Service: ? Author Type: Nurse Practitioner Type: Progress Notes Filed: 10/30/2024 16:05 Note Text: Procedure Type: Isolated CABG Perioperative Outcome Estimate % Operative Mortality 3.13% Morbidity AND Mortality 14.7% Stroke 1.09% Renal Failure 1.99% Reoperation 2.72% Prolonged Ventilation 11.4% Deep Sternal Wound Infection 0.5% Long Hospital Stay (>14 days) 8.82% Short Hospital Stay (<6 days)* 26.9% Procedure Type: CABG + AVR Perioperative Outcome Estimate % Operative Mortality 4.55% Morbidity AND Mortality 29.7% Stroke 2.81% Renal Failure 4.04% Reoperation 6.73% Prolonged Ventilation 21.3% Deep Sternal Wound Infection 0.569% Long Hospital Stay (>14 days) 14.3% Short Hospital Stay (<6 days)* 18% Clinical Summary Planned Surgery: CABG + AVR, Elective, First cardiovascular surgery Demographics: 74 year old, male, 102.7kg, 170.2cm, BMI: 35.4 kg/m? Lab Values: Creatinine: 0.91 mg/dL, Hematocrit: 47.3%, WBC Count: 8.93 10?/?L, Platelet Count: 714019 cells/?L PreOp Medications: Oral diabetes control Substance Abuse: Current smoker Risk Factors / Comorbidities: Diabetes Mellitus , Hypertension, Family Hx of CAD Pulmonary RF: Severe CLD Cardiac Status: Chronic heart failure, Ejection Fraction = 20% Coronary Artery Disease: 3 vessels diseased, Non-ST Elevation LA, LA: > 21 Days Valve Disease: Aortic Stenosis, Trivial/Trace MR [facility] 10-30-2024 Note HNO ID: [id number] Author: EARLENE MARSHALL LPN Service: ? Author Type: Licensed Nurse Type: Progress Notes Filed: 10/30/2024 16:05 Note Text: CARDIAC REHAB 5 METER WALK TEST SERVICE DATE: 10/30/2024 SERVICE TIME: 1:27PM 4.85 sec 4.28 sec 4.45 sec ASSESSMENT: SIGNATURE: Earlene Marshall LPN PATIENT NAME: Victor Hugo Sheth DATE: October 30, 2024 TIME: 1:32 PM PAGER/CONTACT #: [phone] [facility] 10-27-2024 Telephone encounter Note Called and left message on patients voicemail to return call to the office and ask to speak with a triage nurse. Amira White MA [facility] 10-26-2024 Telephone encounter Note Let patient know his Alk phos is improved but still slightly elevated. The fraction test showed mainly coming from the liver. Want to get a liver US. The other liver labs were ok. [facility] 10-20-2024 History of Presen t illness Narrative Radiology Service Progress Note PATIENT NAME: Victor Hugo Sheth DATE OF SERVICE: October 20, 2024 TIME: 1:22 PM PATIENT IDENTITY VERIFICATION COMPLETED USING TWO (2) IDENTIFIERS: Name and Date of confirmed by patient verbally and Name and Date of confirmed by identification band. FALL SCREENING: Has the patient had 2 falls in the last year or 1 fall with injury or currently using an Ambulatory Assistive Device (Walker, Cane, Wheelchair, Crutches, etc.)? No PATIENT GENDER DATA: Assigned male at PATIENT RELEVANT IMPLANT DATA REVIEWED: Yes PATIENT PRESENTS WITH AN IMPLANTABLE OR ATTACHED DUPLICATING MACHINE MECHANIC: No RADIOLOGY DEPARTMENT: CT; Exam(s) Completed: Chest. Anesthesia: No PERIPHERAL IV DATA: Not applicable SIGNED BY: TECHNOLOGIST Lauri October 20, 2024 1:22 PM documented in this encounter [facility] 10-20-2024 Note HNO ID: [id number] Author: PACO VAUGHAN TECHNOLOGIST Service: Radiology Author Type: Technologist Type: Progress Notes Filed: 10/20/2024 13:25 Note Text: Radiology Service Progress Note PATIENT NAME: Victor Hugo Sheth DATE OF SERVICE: October 20, 2024 TIME: 1:22 PM PATIENT IDENTITY VERIFICATION COMPLETED USING TWO (2) IDENTIFIERS: Name and Date of confirmed by patient verbally and Name and Date of confirmed by identification band. FALL SCREENING: Has the patient had 2 falls in the last year or 1 fall with injury or currently using an Ambulatory Assistive Device (Walker, Cane, Wheelchair, Crutches, etc.)? No PATIENT GENDER DATA: Assigned male at PATIENT RELEVANT IMPLANT DATA REVIEWED: Yes PATIENT PRESENTS WITH AN IMPLANTABLE OR ATTACHED DUPLICATING MACHINE MECHANIC: No RADIOLOGY DEPARTMENT: CT; Exam(s) Completed: Chest. Anesthesia: No PERIPHERAL IV DATA: Not applicable SIGNED BY: TECHNOLOGIST Lauri October 20, 2024 1:22 PM [facility] 10-17-2024 Telephone encounter Note Phoned pt regarding future appts also mailed itinerary to his home. Presurgical labs to be drawn week of 10/23/24 at any [facility] facility. No fasting required. Office visit 10/30/24 1:45pm with Dr. Bowden to review testing and discuss surgery, possible presurgical instructions with ERP PM CABG tentatively schedule for 11/07/24 arrival time 6am procedure time 8am [facility]. [facility] 10-17-2024 Miscellaneous Notes Phoned pt regarding future appts also mailed itinerary to his home. Presurgical labs to be drawn week of 10/23/24 at any [facility] facility. No fasting required. Office visit 10/30/24 1:45pm with Dr. Bowden to review testing and discuss surgery, possible presurgical instructions with ERP PM CABG tentatively schedule for 11/07/24 arrival time 6am procedure time 8am [facility]. Left message for pt to call back to discuss OV and surgery schedule. documented in this encounter [facility] 10-13-2024 Telephone encounter Note Left message for pt to call back to discuss OV and surgery schedule. [facility] 10-09-2024 Telephone encounter Note Phoned pt regarding future appts CT Chest without contrast 10/18/24 10:40am & Carotid US 10/18/24 11:00am [facility] on the 1st floor . Informed pt he will receive call from [facility] to schedule him for RHC/ISABELLE [facility] 10-09-2024 Miscellaneous Notes Phoned pt regarding future appts CT Chest without contrast 10/18/24 10:40am & Carotid US 10/18/24 11:00am [facility] on the 1st floor . Informed pt he will receive call from [facility] to schedule him for RHC/ISABELLE documented in this encounter [facility] 10-04-2024 Telephone encounter Note Pt saw Dr. Bowden 09/26/24 and decided to proceed with CABG. Per 09/26/24 office encounter he will need a carotid duplex, CT chest, and RHC/ISABELLE, and office visit to follow. [facility] 10-04-2024 Miscellaneous Notes Pt saw Dr. Bowden 09/26/24 and decided to proceed with CABG. Per 09/26/24 office encounter he will need a carotid duplex, CT chest, and RHC/ISABELLE, and office visit to follow. documented in this encounter [facility] 09-26-2024 Note HNO ID: [id number] Author: ZO BOWDEN MD Service: ? Author Type: Physician Type: Progress Notes Filed: 09/26/2024 15:47 Note Text: PATIENT TYPE: New Visit to determine Surgery: Yes PCP: Jorden Hartmann MD REFERRING PROVIDER: No ref. provider found HPI: Victor Hugo Sheth is a 74 year old male seen in consultation at the request of for opinion regarding treatment options for CAD. Comorbidities include HTN, Dyslipidemia, DM, and ischemic cardiomyopathy. Mr. Sheth presents to clinic with his lifelong friend following [facility] done today. He denies chest pain, shortness of breath, or palpitations. He does state his energy level has been poor. He states he had an echo in August which prompted the LHC done today. On today's LHC, he was found to have critical proximal LAD disease. Recent TTE shows mild to moderate MR and EF 22%. HISTORIES: PAST MEDICAL HISTORY Diagnosis Date Advance directive discussed with patient 10/22/2021 Discussed 09/2021 Arthritis of both knees 12/12/2019 CAD (coronary artery disease), [place] coronary artery 05/14/[address] Khalil [facility] 05/14/[address] [facility] report from [facility], showed 85% stenosis in pLAD followed by 95% stenosis and 50-75% stenosis in mid LAD. Minimal disease in LCx and LCA. RCA with proximal and distal 25% stenosis. [facility] 05/17 s/p YESENIA x2 to LAD Plan: Dc home with follow-up Continue Plavix Carpal tunnel syndrome of right wrist 10/27/2013 EMG/NCT 10/27/13=mild right CTS Chronic systolic congestive heart failure (HCC) 03/13/2015 08/02/2018: Home BP Cuff Validated. Home BP: 118/71 Office BP: 116/72 Combined forms of age-related cataract of both eyes 06/15/2016 Combined forms of age-related cataract, bilateral 06/15/2016 Congestive heart failure (HCC) 03/13/2015 COPD with chronic bronchitis ([facility]) 03/13/2015 Corneal scar, right eye 07/18/2020 DDD (degenerative disc disease), cervical DDD (degenerative disc disease), lumbar 12/07/2019 Depression with anxiety Diabetic eye exam ([facility]) 05/15/2015 Last done 06/27/2018: no retinopathy. Dry eye syndrome of both eyes 07/18/2020 Elevated PSA 01/26/2019 Encounter for Medicare annual wellness exam 11/17/2017 Medicare Part B: 12/23/2016 last done: 09/10/2023 Does not want ELMO or colonoscopy Essential hypertension 09/19/2018 Gastroesophageal reflux disease without esophagitis 03/13/2015 History of compression fracture of spine 1969 high school football Iron deficiency anemia 09/26/2019 Iron deficiency anemia 09/26/2019 EGD and colonoscopy done 10/2019 Ischemic cardiomyopathy 05/25/2014 Leukocytosis 09/19/2018 Repeat 10/2018 ok Living will in place 10/22/2021 DPA: Jon (son) Medicare annual wellness visit, initial 11/17/2017 Medicare Part B: 12/23/2016 last done: 01/26/2019 Does not want ELMO or colonoscopy Mixed hyperlipidemia 09/13/2012 Neck pain 10/04/2013 Obesity, Class II, BMI 35-39.9 05/13/2017 Presence of drug coated stent in LAD coronary artery 05/25/2014 Prostate cancer (HCC) 03/03/2024 Smoker 03/13/2015 Started at 20 yo up to 2 PPD. as of 02/2015 only 5 cigs a day Tachycardia 10/30/2014 Thrombocytosis 09/19/2018 Repeat 10/2018 ok Type 2 diabetes mellitus with diabetic neuropathy, without long-term current use of insulin ([facility]) 11/20/2015 Type 2 diabetes mellitus without retinopathy ([facility]) 10/12/2014 Vitreous floaters of both eyes 10/12/2014 PAST SURGICAL HISTORY Procedure Laterality Date COLONOSCOPY FLX DX W/COLLJ SPEC WHEN PFRMD 11/16/2019 Colonoscopy ESOPHAGOGASTRODUODENOSCOPY TRANSORAL DIAGNOSTIC 11/16/2019 EGD HEART CATHETERIZATION 05/14/2014 triple vessel disease, YESENIA x 2 to the prox and mid LAD IMMUNOCHEMICAL FECAL OCCULT BLOOD TEST 03/08/2019 negative PAST SURGICAL HISTORY OF 1971 vertebral fracture in football? no repair. REPAIR FINGER TENDON left hand- cut tendons with chain saw TONSILLECTOMY AND ADENOIDECTOMY AGE 14/> 1982 TONSILLECTOMY HX FAMILY HISTORY Problem Relation Age of Onset Emphysema Father Coronary Artery Disease Brother CABG Hypertension Brother Prostate Cancer Brother Social History Tobacco Use Smoking status: Every Day Current packs/day: 0.30 Average packs/day: 0.3 packs/day for 40.0 years (12.0 ttl pk-yrs) Types: Cigarettes Passive exposure: Never Smokeless tobacco: Never Tobacco comments: started smoking 20yo, usually 5 cigarettes per day Vaping Use Vaping status: Never Used Substance Use Topics Alcohol use: Yes Comment: few drinks per year Drug use: Never MEDICATIONS: Current Outpatient Medications Medication Sig oxybutynin ER (DITROPAN XL) 10 mg 24 hr tablet Take 1 tablet by mouth once daily. metFORMIN (GLUCOPHAGE) 1,000 mg tablet Take 1 tablet by mouth two times a day with meals. metoprolol succinate ER (TOPROL XL) 50 mg 24 hr tablet Take 1 tablet by mouth once daily. atorvastatin (LIPITOR) 80 mg tablet Take 1 tablet by mouth daily at bedtime. g (more content not included)... [facility] 09-26-2024 Note HNO ID: [id number] Author: EARLENE MARSHALL LPN Service: ? Author Type: LICENSED NURSE Type: Progress Notes Filed: 09/26/2024 15:47 Note Text: CARDIAC REHAB 5 METER WALK TEST SERVICE DATE: 09/26/2024 SERVICE TIME: 2:29pm 5.45 sec 5.08 sec 5.05 sec ASSESSMENT: SIGNATURE: Earlene Marshall LPN PATIENT NAME: Victor Hugo Sheth DATE: September 26, 2024 TIME: 2:34 PM PAGER/CONTACT #: [phone] [facility] 09-20-2024 Note HNO ID: [id number] Author: JORDEN HARTMANN MD Service: ? Author Type: Physician Type: Progress Notes Filed: 09/28/2024 08:35 Note Text: Chief Complaint Patient presents with: F/U 6 Month HPI Victor Hugo Sheth is a 74 year old male who presents here today for a routine follow up. Still smoking about 5 cigarettes per day. Pt is waiting for cardiac surgical clearance for carpal tunnel release through [facility]. Also advised he needs neck and upper back surgery, per Dr. Orlando. Has to receive clearance through Cardiology after completion of cardiac cath test on 09/26/24 as scheduled, this is a result of abnormal stress test. Dr. Jefferson recently started patient on Ditropan XL 10 mg once daily due to urinary frequency. Hx of prostate cancer. Has not started medication. Saw Dr. Jefferson yesterday. Has a CGM, but unable to figure out how to use it. Checks sugars once daily (fingerstick), with FBS ranging from 130-140's. Denies any lows. Notes neuropathy in b/l feet and hands. States he's had DM eye exam through [facility] in [place] this year. Will need to request records, unable to recall Provider seen. Victor Hugo is scheduled for a heart catheterization on September 26 and expresses concerns about potential delays in his upcoming surgeries for neck, lower back, and right wrist carpal tunnel due to cardiology clearance. He reports significant pain in his wrist, neck, and lower back, and experiences numbness in his legs, particularly in the back of his thighs, which affects his ability to walk. He notes that when he feels tingling in the back of his thighs, he needs to sit down immediately to avoid falling. 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 Victor Hugo is currently taking medication to control his bladder and reports urinating every 2-2.5 hours. He denies any recent fevers, lumps or swelling in the neck, wheezing, dyspnea, hemoptysis, chest pain, palpitations, leg swelling, nausea, emesis, diarrhea, dysuria, hematuria, or heartburn. He also denies any changes in heat or cold tolerance, symptoms of hypoglycemia, syncope, or seizures. He reports no more anxiety or depression than usual and is sleeping okay, though he notes that frequent urination makes it difficult. Victor Hugo has a history of prostate cancer and has undergone radiation therapy. His most recent PSA level was 0.52. He is a current smoker, smoking 5 cigarettes per day. He has lost 11 pounds recently and attributes this to eating lots of watermelon and cantaloupe. He is on Medicare and Medicaid. Past medical history, appointments, medications, allergies reviewed. Previous Medical History PAST MEDICAL HISTORY Diagnosis Date Advance directive discussed with patient 10/22/2021 Discussed 09/2021 Arthritis of both knees 12/12/2019 CAD (coronary artery disease), [place] coronary artery 05/14/[address] Khalil [facility] 05/14/[address] [facility] report from [facility], showed 85% stenosis in pLAD followed by 95% stenosis and 50-75% stenosis in mid LAD. Minimal disease in LCx and LCA. RCA with proximal and distal 25% stenosis. [facility] 05/17 s/p YESENIA x2 to LAD Plan: Dc home with follow-up Continue Plavix Carpal tunnel syndrome of right wrist 10/27/2013 EMG/NCT 10/27/13=mild right CTS Chronic systolic congestive heart failure (HCC) 03/13/2015 08/02/2018: Home BP Cuff Validated. Home BP: 118/71 Office BP: 116/72 Combined forms of age-related cataract of both eyes 06/15/2016 Combined forms of age-related cataract, bilateral 06/15/2016 Congestive heart failure (HCC) 03/13/2015 COPD with chronic bronchitis (HCC) 03/13/2015 Corneal scar, right eye 07/18/2020 DDD (degenerative disc disease), cervical DDD (degenerative disc disease), lumbar 12/07/2019 Depression with anxiety Diabetic eye exam (HCC) 05/15/2015 Last done 06/27/2018: no retinopathy. Dry eye syndrome of both eyes 07/18/2020 Elevated PSA 01/26/2019 Encounter for Medicare annual wellness exam 11/17/2017 Medicare Part B: 12/23/2016 last done: 09/10/2023 Does not want ELMO or colonoscopy Essential hypertension 09/19/2018 Gastroesophageal reflux disease without esophagitis 03/13/2015 History of compression fracture of spine 1971 high school football Iron deficiency anemia 09/26/2019 Iron deficiency anemia 09/26/2019 EGD and colonoscopy done 10/2019 Ischemic cardiomyopathy 05/25/2014 Leukocytosis 09/19/2018 Repeat 10/2018 ok Living will in place 10/22/2021 DPA: Jon (son) Medicare annual wellness visit, initial 11/17/2017 Medicare Part B: 12/23/2016 last done: 01/26/2019 Does not want ELMO or colonoscopy Mixed hyperlipidemia 09/13/2012 Neck pain 10/04/2013 Obesity, Class II, BMI 35-39.9 05/13/2017 Presence of drug coated stent in LAD coronary artery 05/25/2014 Prostate cancer (HCC) 03/03/2024 Smoker (more content not included)... [facility] 09-20-2024 Telephone encounter Note Called pt no answer left VM to call us back. [facility] 09-20-2024 Miscellaneous Notes Called pt no answer left VM to call us back. Patient asking for clarification if he needs to hold his blood thinner for the heart cath on 09/26 He is taking plavix Please call at [phone] Rescheduled LHC on 09/26/[address] Clark . Please instruct patient on which medications to stop and/or keep taking. Patient will need ride home and someone overnight. Someone from phlebotomy lab assistant will call the patient the day before to go over instructions. Called pt to review cath instructions. Pt unable to proceed with heart cath on 09/19/2024 due to another scheduled appointment that day. Pt is requesting an new heart cath day. Scheduled LHC on 09/19/[address] Clark . Please instruct patient on which medications to stop and/or keep taking. Patient will need ride home and someone overnight. Someone from phlebotomy lab assistant will call the patient the day before to go over instructions. documented in this encounter [facility] 09-20-2024 Telephone encounter Note Patient asking for clarification if he needs to hold his blood thinner for the heart cath on 09/26 He is taking plavix Please call at [phone] [facility] 09-19-2024 Note HNO ID: [id number] Author: AYAN JEFFERSON JR, MD Service: ? Author Type: Physician Type: Progress Notes Filed: 09/19/2024 15:23 Note Text: ESTABLISHED PATIENT OFFICE VISIT HPI Victor Hugo Sheth is a 74 year old male who presents Prostate Cancer Consultation Note Mr Victor Hugo Sheth was diagnosed with Clinical Stage(1c) Mabscott's score 7 (3+4) adenocarcinoma of the prostate with an associated PSA of 5 and an estimated prostatic volume of 30. He had 7 of 12 cores positive with disease identified in the 7 portion(s) of the prostate. The patient presents alone and I have discussed his apparent localized prostate cancer at length. Specifically we discussed the Mabscott score, number and percent of cores involved with disease, the nathaly tables risk stratification criteria which are based upon the Eugene score, PSA, and clinical T stage. Based upon the clinical features the patient falls into moderate risk category for 10 year biochemical disease free survival regardless of which therapeutic modality he chooses. He understands that there is a small, but real, chance of occult metastatic disease and the logic of when metastatic workup is appropriate. We discussed various options for management of his disease including watchful waiting, active surveillance, radiation modality and surgical extirpation. The options of watchful waiting or active surveillence were gone over and what these would entail, with selective delayed intervention, hormonal therapy in its various forms. The protocol for periodic PSA tests and repeating his transrectal prostate ultrasound, without or with prostate biopsy was covered. With respect to surgical intervention we compared and contrasted open, laparoscopic and robotic prostatectomy with or without bilateral pelvic lymphadenectomy. We compared these with respect to cancer control, urinary control, and erectile dysfunction. I explained that any patient undergoing treatment for prostate cancer may need additional therapy. The possibility of severe or total loss of urinary control, possibly needed surgery to implant an artificial urinary sphincter is possible after prostate cancer surgery. The possibility of loss of erections, and the possible treatment options was discussed. The other potential downside, including but not limited to urethral stricture, bladder neck contracture. I explained to him that robotic prostatectomy is a major surgical procedure and has possible major complications including, but not limited to bleeding requiring transfusion, rectal injury requiring a temporary colostomy, damage to abdominal structure, infection, myocardial infarction, stroke, deep vein thrombosis/ pulmonary embolism, or open conversion. We discussed the procedure related morbidity, hospitalization, and convalescence period. We have reviewed the recent data, which would show that at least one out of ten patients undergoing radical prostatectomy will have at least one complication whether minor or major, and this could be as high as 25% (one in four). We have discussed that with surgical intervention. We also discussed radiation therapy; external beam, and out-patient brachytherapy as well as the attendant procedure related morbidity as it relates to the low but known risk of group home urinary frequency, urgency, urgency with bowel movements and risk of urethral radiation injury. We also discussed time commitment for the external beam therapy being once a day, five days a week for 5-7 weeks during which most people can continue normal daily activities. I described the likelihood of flare up of hemorrhoids, and mild decrease in physical stamina during the later portion of the treatments. We discussed the time frame for PSA response that would indicate efficacy of the radiation therapy. A referral to radiation oncology was offered. Additionally, we discussed cryosurgical ablation of the prostate (with without nerve sparing). Specifically, we discussed the procedure related morbidity, risk of rectal injury, urinary incontinence, post cryo urinary frequency and urgency, and risk of impotence. We also discussed the outpatient nature of the procedure, minimal need for pain medication and the need for a urinary catheter for 2-weeks following the procedure and the time frame of PSA response that would reflect the efficacy of the cryosurgical procedure and the follow up that would be involved. Finally, with respect to the cryosurgical procedure we discussed that to date we do not have group home (10-year) outcomes data, however, the published data do compare favorably to other treatment modalities and there have been no data that indicate any superiority of one prostate cancer treatment modality over another. I answered all of his questions today and encouraged him to call me if any other questions come to mind. He expressed understanding today's conversation. (more content not included)... [facility] 09-19-2024 History of Presen t illness Narrative ESTABLISHED PATIENT OFFICE VISIT HPI Victor Hugo Sheth is a 74 year old male who presents Prostate Cancer Consultation Note Mr Victor Hugo Sheth was diagnosed with Clinical Stage(1c) Mabscott's score 7 (3+4) adenocarcinoma of the prostate with an associated PSA of 5 and an estimated prostatic volume of 30. He had 7 of 12 cores positive with disease identified in the 7 portion(s) of the prostate. The patient presents alone and I have discussed his apparent localized prostate cancer at length. Specifically we discussed the Mabscott score, number and percent of cores involved with disease, the nathaly tables risk stratification criteria which are based upon the Mabscott score, PSA, and clinical T stage. Based upon the clinical features the patient falls into moderate risk category for 10 year biochemical disease free survival regardless of which therapeutic modality he chooses. He understands that there is a small, but real, chance of occult metastatic disease and the logic of when metastatic workup is appropriate. We discussed various options for management of his disease including watchful waiting, active surveillance, radiation modality and surgical extirpation. The options of watchful waiting or active surveillence were gone over and what these would entail, with selective delayed intervention, hormonal therapy in its various forms. The protocol for periodic PSA tests and repeating his transrectal prostate ultrasound, without or with prostate biopsy was covered. With respect to surgical intervention we compared and contrasted open, laparoscopic and robotic prostatectomy with or without bilateral pelvic lymphadenectomy. We compared these with respect to cancer control, urinary control, and erectile dysfunction. I explained that any patient undergoing treatment for prostate cancer may need additional therapy. The possibility of severe or total loss of urinary control, possibly needed surgery to implant an artificial urinary sphincter is possible after prostate cancer surgery. The possibility of loss of erections, and the possible treatment options was discussed. The other potential downside, including but not limited to urethral stricture, bladder neck contracture. I explained to him that robotic prostatectomy is a major surgical procedure and has possible major complications including, but not limited to bleeding requiring transfusion, rectal injury requiring a temporary colostomy, damage to abdominal structure, infection, myocardial infarction, stroke, deep vein thrombosis/ pulmonary embolism, or open conversion. We discussed the procedure related morbidity, hospitalization, and convalescence period. We have reviewed the recent data, which would show that at least one out of ten patients undergoing radical prostatectomy will have at least one complication whether minor or major, and this could be as high as 25% (one in four). We have discussed that with surgical intervention. We also discussed radiation therapy; external beam, and out-patient brachytherapy as well as the attendant procedure related morbidity as it relates to the low but known risk of group home urinary frequency, urgency, urgency with bowel movements and risk of urethral radiation injury. We also discussed time commitment for the external beam therapy being once a day, five days a week for 5-7 weeks during which most people can continue normal daily activities. I described the likelihood of flare up of hemorrhoids, and mild decrease in physical stamina during the later portion of the treatments. We discussed the time frame for PSA response that would indicate efficacy of the radiation therapy. A referral to radiation oncology was offered. Additionally, we discussed cryosurgical ablation of the prostate (with without nerve sparing). Specifically, we discussed the procedure related morbidity, risk of rectal injury, urinary incontinence, post cryo urinary frequency and urgency, and risk of impotence. We also discussed the outpatient nature of the procedure, minimal need for pain medication and the need for a urinary catheter for 2-weeks following the procedure and the time frame of PSA response that would reflect the efficacy of the cryosurgical procedure and the follow up that would be involved. Finally, with respect to the cryosurgical procedure we discussed that to date we do not have founder ceo & president (10-year) outcomes data, however, the published data do compare favorably to other treatment modalities and there have been no data that indicate any superiority of one prostate cancer treatment modality over another. I answered all of his questions today and encouraged him to call me if any other questions come to mind. He expressed understanding today's conversation. Total [id number] discussion >30 min; and >50% of that time was spent in counseling. No ab surgeries Heart dz - would need to see cardio No blood thinners Non-NSS 09/19/24 - sp xrt. Doing well. Co f/u. On no prostate or bladder meds. Psa 0.52. tolerated xrt well. No hormones. LAB: Creatinine Date Value Ref Range Status 09/15/2024 1.03 0.73 - 1.22 mg/dL Final PSA (ng/mL) Date Value 09/15/2024 0.52 08/20/2023 4.50 10/01/2022 4.00 03/17/2022 3.18 10/09/2021 3.35 04/14/2021 3.33 12/11/2020 3.04 07/12/2019 2.54 03/08/2019 2.34 01/18/2019 3.23 11/25/2017 1.96 11/12/2016 1.76 11/15/2015 1.86 Glucose, Urine Date Value 08/20/2023 3+ 12/11/2020 3+ mg/dL Bilirubin, Urine (no units) Date Value 08/20/2023 Negative 12/11/2020 Negative Ketones, Urine (no units) Date Value 08/20/2023 Negative 12/11/2020 Negative Specific [place], Ur (no units) Date Value 08/20/2023 1.032 12/11/2020 1.023 Hemoglobin/Blood,Ur Date Value 08/20/2023 Negative 12/11/2020 Negative pH, Urine (no units) Date Value 08/20/2023 6.0 12/11/2020 6.0 Protein, Urine (no units) Date Value 08/20/2023 Negative 12/11/2020 Negative Nitrites (no units) Date Value 08/20/2023 Negative 12/11/2020 Negative WBC, Urine Date Value 08/20/2023 0-5 /HPF 12/11/2020 0-5 /HPF MEDICATIONS: metFORMIN (GLUCOPHAGE) 1,000 mg tablet Take 1 tablet by mouth two times a day with meals. metoprolol succinate ER (TOPROL XL) 50 mg 24 hr tablet Take 1 tablet by mouth once daily. atorvastatin (LIPITOR) 80 mg tablet Take 1 tablet by mouth daily at bedtime. glimepiride (AMARYL) 4 mg tablet Take 1 tablet by mouth two times a day with meals. clopidogrel (PLAVIX) 75 mg tablet Take 1 tablet by mouth once daily. empagliflozin (JARDIANCE) 25 mg tablet Take 1 tablet by mouth daily with breakfast. lisinopril (ZESTRIL) 10 mg tablet Take 1 tablet by mouth once daily. SITagliptin phosphate (JANUVIA) 100 mg tablet Take 1 tablet by mouth once daily. blood sugar diagnostic (BLOOD GLUCOSE TEST) test strip Test blood sugar(s) 2 times daily. Dx: Other DM Code E11.42 Insulin: No albuterol HFA (PROVENTIL HFA, VENTOLIN HFA) 90 mcg/actuation inhaler Inhale 2 Puffs as instructed every 4 hours as needed. Lancets lancets Test blood sugar(s) 2 times daily. Dx: Other DM Code E11.42 Insulin: No Blood-Glucose Meter Test Blood Sugars 2 times daily Dx E11.42 Insulin: No flash glucose sensor (FREESTYLE ADRIAN 10 DAY SENSOR) kit 1 Each one time a week. Check blood sugar twice a day flash glucose scanning reader (FREESTYLE ADRIAN 10 DAY READER) 1 Device twice daily. Check blood sugar twice a day oxybutynin ER (DITROPAN XL) 10 mg 24 hr tablet Take 1 tablet by mouth once daily. REVIEW OF SYSTEMS Review of Systems Constitutional: Negative. Respiratory: Negative. Cardiovascular: Negative. Gastrointestinal: Negative. Genitourinary: Negative. Skin: Negative. Neurological: Negative. Psychiatric/Behavioral: Negative. HISTORIES PAST MEDICAL HISTORY Diagnosis Date Advance directive discussed with patient 10/22/2021 Discussed 09/2021 Arthritis of both knees 12/12/2019 CAD (coronary artery disease), [place] coronary artery 05/14/[address] Khalil [facility] 05/14/[address] [facility] report from [facility], showed 85% stenosis in pLAD followed by 95% stenosis and 50-75% stenosis in mid LAD. Minimal disease in LCx and LCA. RCA with proximal and distal 25% stenosis. [facility] 05/17 s/p YESENIA x2 to LAD Plan: Dc home with follow-up Continue Plavix Carpal tunnel syndrome of right wrist 10/27/2013 EMG/NCT 10/27/13=mild right CTS Chronic systolic congestive heart failure (HCC) 03/13/2015 08/02/2018: Home BP Cuff Validated. Home BP: 118/71 Office BP: 116/72 Combined forms of age-related cataract of both eyes 06/15/2016 Combined forms of age-related cataract, bilateral 06/15/2016 Congestive heart failure (HCC) 03/13/2015 COPD with chronic bronchitis (HCC) 03/13/2015 Corneal scar, right eye 07/18/2020 DDD (degenerative disc disease), cervical DDD (degenerative disc disease), lumbar 12/07/2019 Depression with anxiety Diabetic eye exam ([facility]) 05/15/2015 Last done 06/27/2018: no retinopathy. Dry eye syndrome of both eyes 07/18/2020 Elevated PSA 01/26/2019 Encounter for Medicare annual wellness exam 11/17/2017 Medicare Part B: 12/23/2016 last done: 09/10/2023 Does not want ELMO or colonoscopy Essential hypertension 09/19/2018 Gastroesophageal reflux disease without esophagitis 03/13/2015 History of compression fracture of spine 1971 high school football Iron deficiency anemia 09/26/2019 Iron deficiency anemia 09/26/2019 EGD and colonoscopy done 10/2019 Ischemic cardiomyopathy 05/25/2014 Leukocytosis 09/19/2018 Repeat 10/2018 ok [address] in place 10/22/2021 DPA: Jon (son) Medicare annual wellness visit, initial 11/17/2017 Medicare Part B: 12/23/2016 last done: 01/26/2019 Does not want ELMO or colonoscopy Mixed hyperlipidemia 09/13/2012 Neck pain 10/04/2013 Obesity, Class II, BMI 35-39.9 05/13/2017 Presence of drug coated stent in LAD coronary artery 05/25/2014 Smoker 03/13/2015 Started at 20 yo up to 2 PPD. as of 02/2015 only 5 cigs a day Tachycardia 10/30/2014 Thrombocytosis 09/19/2018 Repeat 10/2018 ok Type 2 diabetes mellitus with diabetic neuropathy, without long-term current use of insulin ([facility]) 11/20/2015 Type 2 diabetes mellitus without retinopathy ([facility]) 10/12/2014 Vitreous floaters of both eyes 10/12/2014 FAMILY HISTORY Problem Relation Age of Onset Emphysema Father Coronary Artery Disease Brother CABG Hypertension Brother Prostate Cancer Brother SOCIAL HISTORY Social History Tobacco Use Smoking status: Every Day Current packs/day: 0.30 Average packs/day: 0.3 packs/day for 40.0 years (12.0 ttl pk-yrs) Types: Cigarettes Passive exposure: Never Smokeless tobacco: Never Tobacco comments: started smoking 20yo, usually 4 cigarettes per day Vaping Use Vaping status: Never Used Substance Use Topics Alcohol use: Yes Comment: few drinks per year Drug use: Never PHYSICAL EXAMINATION General appearance: Well appearing, alert, in no acute distress, and well-hydrated, well nourished Skin: Skin color, texture, turgor normal, no suspicious rashes or lesions Respiratory:+ effort Cardiovascular: Not examined GI: Normal abdominal exam, Abdomen soft, non-tender. No masses, organomegaly Musculoskeletal: Negative Neuro: Negative Genitourinary: not examined Impression: (C61) Prostate cancer (HCC) (primary encounter diagnosis) Plan: 6 months Psa prior oxybutynin Ayan Jefferson Jr, MD 09/19/2024 documented in this encounter [facility] 09-15-2024 Note HNO ID: [id number] Author: AMIRA WHITE MA Service: ? Author Type: Dairy Inspector Type: Progress Notes Filed: 09/15/2024 10:33 Note Text: Scan on 09/15/2024 9:21 AM by Provider, Bonnie, PA-C: [facility] OV note [facility] 09-15-2024 History of Presen t illness Narrative Scan on 09/15/2024 9:21 AM by ProviderBonnie, PA-C: [facility] note documented in this encounter [facility] 09-15-2024 Telephone encounter Note Rescheduled LHC on 09/26/[address] Clark . Please instruct patient on which medications to stop and/or keep taking. Patient will need ride home and someone overnight. Someone from phlebotomy lab assistant will call the patient the day before to go over instructions. [facility] 09-14-2024 Telephone encounter Note Called pt to review cath instructions. Pt unable to proceed with heart cath on 09/19/2024 due to another scheduled appointment that day. Pt is requesting an new heart cath day. [facility] 09-13-2024 Telephone encounter Note Scheduled LHC on 09/19/[address] Clark . Please instruct patient on which medications to stop and/or keep taking. Patient will need ride home and someone overnight. Someone from phlebotomy lab assistant will call the patient the day before to go over instructions. [facility] 09-12-2024 Telephone encounter Note Forms from [facility] received via fax. Forms placed in Dr. Daly alan for review. [facility] 09-12-2024 Miscellaneous Notes Forms from [facility] received via fax. Forms placed in Dr. Daly alan for review. documented in this encounter [facility] 09-06-2024 Telephone encounter Note Called pt, no answer. Left VM to call back a review ST, echo results and message from providers. [facility] 09-06-2024 Miscellaneous Notes Called pt, no answer. Left VM to call back a review ST, echo results and message from providers. documented in this encounter [facility] 09-05-2024 Note HNO ID: [id number] Author: ALLA MASCORRO RN Service: ? Author Type: Registered Nurse Type: Progress Notes Filed: 09/05/2024 13:41 Note Text: Pt here for out patient echo. IV started right forearm # 22, flushed and patent. Definity given per protocol. Once test completed, IV discontinued, catheter intact. [facility] 09-05-2024 History of Presen t illness Narrative Pt here for out patient echo. IV started right forearm # 22, flushed and patent. Definity given per protocol. Once test completed, IV discontinued, catheter intact. documented in this encounter [facility] 09-05-2024 History of Presen t illness Narrative RADIOLOGY SERVICE PROGRESS NOTE SERVICE DATE: 09/05/2024 SERVICE TIME: 2:19 PM PATIENT IDENTITY VERIFICATION COMPLETED USING TWO (2) STANDARD IDENTIFIERS: Name and Date of confirmed by patient verbally and Name and Date of confirmed by identification band FALL SCREENING: Has the patient had 2 falls in the last year or 1 fall with injury or currently using an Ambulatory Assistive Device (Walker, Cane, Wheelchair, Crutches, etc.)? No PATIENT GENDER DATA: .male ALLERGIES: Reviewed and unchanged MEDICATIONS REVIEWED: Not applicable PATIENT RELEVANT IMPLANT DATA REVIEWED: Not Applicable PATIENT PRESENTS WITH AN IMPLANTABLE OR ATTACHED DUPLICATING MACHINE MECHANIC: No CREATININE: Creatinine Date Value Ref Range Status 08/20/2023 0.91 0.73 - 1.22 mg/dL Final 10/01/2022 1.28 (H) 0.73 - 1.22 mg/dL Final 10/09/2021 0.89 0.73 - 1.22 mg/dL Final Estimated Glomerular Filtration Rate Date Value Ref Range Status 08/20/2023 90 >=60 mL/min/1.73m Final Comment: Estimated Glomerular Filtration Rate (eGFR) is calculated using the 2020 CKD-EPI creatinine equation. This equation utilizes serum creatinine, sex, and age as parameters. The creatinine assay has traceable calibration to isotope dilution-mass spectrometry. Refer to KDIGO guidelines for clinical interpretation. In patients with unstable renal function, e.g. those with acute kidney injury, the eGFR may not accurately reflect actual GFR. eGFR- Date Value Ref Range Status 04/16/2021 >60 Final P.O.C.T. RESULTS: N/A September 05, [address] PERFORMED: No IV SITE: Ambulatory: A peripheral IV was started in the Right forearm with a Angio cath: 22 gauge. POST EXAM PIV STATUS: Discontinued PROCEDURE TYPE: NM Stress: 16mCi [id number] was administered IV for Rest Imaging at 13:32 by . 51.1 mCi [id number] was administered IV for Stress Imaging at 14:27 by mm. PATIENT DISCHARGED TO: Ambulatory patient, left [place] department area. Is this a therapy: No A Diagnostic radioactive procedure has taken place, with no further precautions necessary other than routine body substance precautions. More information regarding radiation safety can be found using this link: [email or web address]%[email or web address] uclear%20Medicine%[email or web address] df SIGNATURE: JEROME López PATIENT NAME: Victor Hugo Sheth DATE: September 05, 2024 TIME: 2:19 PM PAGER/CONTACT #: documented in this encounter [facility] 09-05-2024 Note HNO ID: [id number] Author: PAU LOTT CNMT Service: Radiology Author Type: Technologist Type: Progress Notes Filed: 09/05/2024 14:29 Note Text: RADIOLOGY SERVICE PROGRESS NOTE SERVICE DATE: 09/05/2024 SERVICE TIME: 2:19 PM PATIENT IDENTITY VERIFICATION COMPLETED USING TWO (2) STANDARD IDENTIFIERS: Name and Date of confirmed by patient verbally and Name and Date of confirmed by identification band FALL SCREENING: Has the patient had 2 falls in the last year or 1 fall with injury or currently using an Ambulatory Assistive Device (Walker, Cane, Wheelchair, Crutches, etc.)? No PATIENT GENDER DATA: .male ALLERGIES: Reviewed and unchanged MEDICATIONS REVIEWED: Not applicable PATIENT RELEVANT IMPLANT DATA REVIEWED: Not Applicable PATIENT PRESENTS WITH AN IMPLANTABLE OR ATTACHED DUPLICATING MACHINE MECHANIC: No CREATININE: Creatinine Date Value Ref Range Status 08/20/2023 0.91 0.73 - 1.22 mg/dL Final 10/01/2022 1.28 (H) 0.73 - 1.22 mg/dL Final 10/09/2021 0.89 0.73 - 1.22 mg/dL Final Estimated Glomerular Filtration Rate Date Value Ref Range Status 08/20/2023 90 >=60 mL/min/1.73m? Final Comment: Estimated Glomerular Filtration Rate (eGFR) is calculated using the 2020 CKD-EPI creatinine equation. This equation utilizes serum creatinine, sex, and age as parameters. The creatinine assay has traceable calibration to isotope dilution-mass spectrometry. Refer to KDIGO guidelines for clinical interpretation. In patients with unstable renal function, e.g. those with acute kidney injury, the eGFR may not accurately reflect actual GFR. eGFR- Date Value Ref Range Status 04/16/2021 >60 Final P.O.C.T. RESULTS: N/A September 05, [address] PERFORMED: No IV SITE: Ambulatory: A peripheral IV was started in the Right forearm with a Angio cath: 22 gauge. POST EXAM PIV STATUS: Discontinued PROCEDURE TYPE: [place] Stress: 16mCi [id number] was administered IV for Rest Imaging at 13:32 by . 51.1 mCi [id number]-[id number] was administered IV for Stress Imaging at 14:27 by mm. PATIENT DISCHARGED TO: Ambulatory patient, left [place] department area. Is this a therapy: No A Diagnostic radioactive procedure has taken place, with no further precautions necessary other than routine body substance precautions. More information regarding radiation safety can be found using this link: [email or web address] 20Diagnostic%20Nuclear%20Medicin [email or web address] SIGNATURE: JEROME López PATIENT NAME: Victor Hugo Sheth DATE: September 05, 2024 TIME: 2:19 PM PAGER/CONTACT #: [facility] 09-04-2024 Telephone encounter Note Left message regarding reminder and instructions for stress test tomorrow. This included where to check in, length of test and no caffeine for 12 hours prior to test. [facility] 09-04-2024 Miscellaneous Notes Left message regarding reminder and instructions for stress test tomorrow. This included where to check in, length of test and no caffeine for 12 hours prior to test. documented in this encounter [facility] 08-23-2024 Note HNO ID: [id number] Author: AMIRA WHITE MA Service: ? Author Type: Dairy Inspector Type: Progress Notes Filed: 08/23/2024 12:11 Note Text: MRI Lumbar Spine. View External Imaging - Lumbar Spine [ID [id number]] [facility] 08-23-2024 History of Presen t illness Narrative MRI Lumbar Spine. View External Imaging - Lumbar Spine [ID [id number]] documented in this encounter [facility] 08-04-2024 Telephone encounter Note Patient calling with medication/refill: Patient/caregiver requesting refill of metformin 1,000mg be called to [facility] pharmacy at [phone]., Allergies reviewed: Yes, Medication, dosage and sig reviewed: Yes. , and Do you have enough medication to last until the office reopens? Yes. Patient denies any new or worsening symptoms of which a provider is not aware:Yes. Pt state he has enough medication to last him till Wednesday. 08/07/24. Pharmacy states pt has no refills left. Pharmacy system is not showing any refills on script sent over on 02/01/24, despite pt chart showing 3 refills on this order. Kassie Rdz LPN [facility] 08-04-2024 Miscellaneous Notes Patient calling with medication/refill: Patient/caregiver requesting refill of metformin 1,000mg be called to [facility] pharmacy at [phone]., Allergies reviewed: Yes, Medication, dosage and sig reviewed: Yes. , and Do you have enough medication to last until the office reopens? Yes. Patient denies any new or worsening symptoms of which a provider is not aware:Yes. Pt state he has enough medication to last him till Wednesday. 08/07/24. Pharmacy states pt has no refills left. Pharmacy system is not showing any refills on script sent over on 02/01/24, despite pt chart showing 3 refills on this order. Kassie Rdz LPN documented in this encounter [facility] 08-01-2024 History of Presen t illness Narrative Images from the original note were not included. [facility] [place] SECTION OF REGIONAL CARDIOLOGY OUTPATIENT VISIT DATE 08/01/2024 OUTPATIENT VISIT TYPE NEW PRIMARY CARE PHYSICIAN: Jorden Hartmann [address] [place], [place] [id number] Patient is being seen at the request of the referring physician for establishment of care HISTORY OF PRESENT ILLNESS: Mr. Sheth is a 74 year old male, hx of CHF, DIABETES MELLITUS, hypertension, HLD, ACS s/p YESENIA to pLAD and mLAD on 04/2014, is referred for CAD. He was last seen in the cardiology office by Dr. Pablo Preciado on 02/28/2018. He denies chest pain, SOB, palpitations, orthopnea, PND, leg swelling, lightheadedness, syncope. He reported fatigue on metoprolol 200 mg po daily and states that his dose was decreased to 25 mg po daily. He reported lightheadedness on higher dose lisinopril and is currently on 10 mg po daily. 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 He reports tingling and numbness in bilateral LE as well as scrotal tingling x 4-5 months. He states that he had bilateral UE and LE BP testing which were normal to his knowledge. ECG showed sinus tachycardia HR 105 Qtc re measured 476 ms TTE 09/23/2023: EF 35% [EF 41% per TTE 2017],0.9/0.9, dilated LV, trace MR, TR PAST MEDICAL HISTORY Diagnosis Date Advance directive discussed with patient 10/22/2021 Discussed 09/2021 Arthritis of both knees 12/12/2019 CAD (coronary artery disease), [place] coronary artery 05/14/[address] Khalil [facility] 05/14/[address] [facility] report from [facility], showed 85% stenosis in pLAD followed by 95% stenosis and 50-75% stenosis in mid LAD. Minimal disease in LCx and LCA. RCA with proximal and distal 25% stenosis. [facility] 05/17 s/p YESENIA x2 to LAD Plan: Dc home with follow-up Continue Plavix Carpal tunnel syndrome of right wrist 10/27/2013 EMG/NCT 10/27/13=mild right CTS Chronic systolic congestive heart failure (HCC) 03/13/2015 08/02/2018: Home BP Cuff Validated. Home BP: 118/71 Office BP: 116/72 Combined forms of age-related cataract of both eyes 06/15/2016 Combined forms of age-related cataract, bilateral 06/15/2016 Congestive heart failure (HCC) 03/13/2015 COPD with chronic bronchitis ([facility]) 03/13/2015 Corneal scar, right eye 07/18/2020 DDD (degenerative disc disease), cervical DDD (degenerative disc disease), lumbar 12/07/2019 Depression with anxiety Diabetic eye exam ([facility]) 05/15/2015 Last done 06/27/2018: no retinopathy. Dry eye syndrome of both eyes 07/18/2020 Elevated PSA 01/26/2019 Encounter for Medicare annual wellness exam 11/17/2017 Medicare Part B: 12/23/2016 last done: 09/10/2023 Does not want ELMO or colonoscopy Essential hypertension 09/19/2018 Gastroesophageal reflux disease without esophagitis 03/13/2015 History of compression fracture of spine 1971 high school football Iron deficiency anemia 09/26/2019 Iron deficiency anemia 09/26/2019 EGD and colonoscopy done 10/2019 Ischemic cardiomyopathy 05/25/2014 Leukocytosis 09/19/2018 Repeat 10/2018 ok Living will in place 10/22/2021 DPA: Jon (son) Medicare annual wellness visit, initial 11/17/2017 Medicare Part B: 12/23/2016 last done: 01/26/2019 Does not want ELMO or colonoscopy Mixed hyperlipidemia 09/13/2012 Neck pain 10/04/2013 Obesity, Class II, BMI 35-39.9 05/13/2017 Presence of drug coated stent in LAD coronary artery 05/25/2014 Smoker 03/13/2015 Started at 20 yo up to 2 PPD. as of 02/2015 only 5 cigs a day Tachycardia 10/30/2014 Thrombocytosis 09/19/2018 Repeat 10/2018 ok Type 2 diabetes mellitus with diabetic neuropathy, without long-term current use of insulin (HCC) 11/20/2015 Type 2 diabetes mellitus without retinopathy (HCC) 10/12/2014 Vitreous floaters of both eyes 10/12/2014 PAST SURGICAL HISTORY Procedure Laterality Date COLONOSCOPY FLX DX W/COLLJ SPEC WHEN PFRMD 11/16/2019 Colonoscopy ESOPHAGOGASTRODUODENOSCOPY TRANSORAL DIAGNOSTIC 11/16/2019 EGD HEART CATHETERIZATION 05/14/2014 triple vessel disease, YESENIA x 2 to the prox and mid LAD IMMUNOCHEMICAL FECAL OCCULT BLOOD TEST 03/08/2019 negative PAST SURGICAL HISTORY OF 1970 vertebral fracture in football? no repair. REPAIR FINGER TENDON left hand- cut tendons with chain saw TONSILLECTOMY & ADENOIDECTOMY AGE 14/> 1982 TONSILLECTOMY HX Social History Tobacco Use Smoking status: Every Day Current packs/day: 0.30 Average packs/day: 0.3 packs/day for 40.0 years (12.0 ttl pk-yrs) Types: Cigarettes Passive exposure: Never Smokeless tobacco: Never Tobacco comments: started smoking 20yo, usually 4 cigarettes per day Vaping Use Vaping status: Never Used Substance Use Topics Alcohol use: Yes Comment: few drinks per year Drug use: Never FAMILY HISTORY Problem Relation Age of Onset Emphysema Father Coronary Artery Disease Brother CABG Hypertension Brother Prostate Cancer Brother ALLERGIES Allergen Reactions Rybelsus [Semagluti* Diarrhea CURRENT MEDICATIONS: atorvastatin (LIPITOR) 80 mg tablet Take 1 tablet by mouth daily at bedtime. glimepiride (AMARYL) 4 mg tablet Take 1 tablet by mouth two times a day with meals. clopidogrel (PLAVIX) 75 mg tablet Take 1 tablet by mouth once daily. empagliflozin (JARDIANCE) 25 mg tablet Take 1 tablet by mouth daily with breakfast. lisinopril (ZESTRIL) 10 mg tablet Take 1 tablet by mouth once daily. metFORMIN (GLUCOPHAGE) 1,000 mg tablet Take 1 tablet by mouth two times a day with meals. metoprolol succinate ER (TOPROL XL) 25 mg 24 hr tablet Take 1 tablet by mouth once daily. SITagliptin phosphate (JANUVIA) 100 mg tablet Take 1 tablet by mouth once daily. blood sugar diagnostic (BLOOD GLUCOSE TEST) test strip Test blood sugar(s) 2 times daily. Dx: Other DM Code E11.42 Insulin: No albuterol HFA (PROVENTIL HFA, VENTOLIN HFA) 90 mcg/actuation inhaler Inhale 2 Puffs as instructed every 4 hours as needed. Lancets lancets Test blood sugar(s) 2 times daily. Dx: Other DM Code E11.42 Insulin: No Blood-Glucose Meter Test Blood Sugars 2 times daily Dx E11.42 Insulin: No flash glucose sensor (FREESTYLE ADRIAN 10 DAY SENSOR) kit 1 Each one time a week. Check blood sugar twice a day flash glucose scanning reader (FREESTYLE ADRIAN 10 DAY READER) 1 Device twice daily. Check blood sugar twice a day PHYSICAL EXAMINATION: BP 116/68 Pulse 105 Ht 170.2 cm (5' 7) Wt 103 kg (227 lb 1.2 oz) SpO2 96% BMI 35.56 kg/m General: Appears comfortable in no apparent cardiopulmonary distress Neck: No JVD, no bruits CVS: S1, S2, No m/r/g Chest: CTAB Abd: Soft, nontender, no masses, BS present Ext: No pedal edema, difficult to palpate bilateral pedal pulses. Normal sensorimotor function bilaterally in UE and LE Neuro: No focal neurological deficits CARDIOVASCULAR MEDICINE TESTING: Last ECHO Result Conclusion ECHO Collected: 09/23/2023 2:26 PM (Final result) Impression: CONCLUSIONS: - Technically difficult exam due to body habitus. - Exam indication: CAD - The left ventricle is mildly dilated. Left ventricular systolic function is moderately decreased. EF = 35 5% (2D biplane) Grade I left ventricular diastolic dysfunction. - The right ventricle is normal in size. Right ventricular systolic function is normal. - Exam was compared with the prior echocardiographic exam performed on 10/27/2016 and EF has decreased from 41% * * * Final * * * ASSESSMENT/PLAN: 1. Coronary artery disease due to lipid rich plaque - ICD9: 414.00, 414.3, ICD10: I25.10, I25.83 s/p YESENIA to pLAD and mLAD on 04/2014. LDL 52 on 03/10/24. - Given mild reduction in EF from 2016--> 2023, arrange for nuclear stress test. - Obtain TTE. Call with results. If EF remains 35% or less, we discussed referral to EP for ICD placement for primary prevention of SCD. - Continue GDMT for CAD 2. Cardiomyopathy Most recent EF 35% per 09/2023 TTE. If EF remains 35% or less, we discussed referral to EP for ICD placement for primary prevention of SCD. - Repeat TTE. - On lisinopril 10 mg p.o. daily - Increase metoprolol to succinate to 50 mg p.o. daily. Was advised to reduce metoprolol dose back to 25 mg once daily if unable to tolerate the higher dose. He advised to keep us informed of his heart rates. If remains >70-80 bpm, we discussed addition of ivabradine. - RTC in 3 months 3. Prolonged QTc - Check Mg, K levels - Obtain NST to assess for ischemia - Avoid QT prolonging medications - Recheck at next visit Monico Amaro MD, [facility] Non invasive and Sports rn faculty documented in this encounter [facility] 08-01-2024 Note HNO ID: [id number] Author: MONICO AMARO MD Service: ? Author Type: Physician Type: Progress Notes Filed: 08/01/2024 16:14 Note Text: [facility] [place] SECTION OF REGIONAL CARDIOLOGY OUTPATIENT VISIT DATE 08/01/2024 OUTPATIENT VISIT TYPE NEW PRIMARY CARE PHYSICIAN: Jorden Hartmann [address] [place] [id number] Patient is being seen at the request of the referring physician for establishment of care HISTORY OF PRESENT ILLNESS: Mr. Sheth is a 74 year old male, hx of CHF, DIABETES MELLITUS, hypertension, HLD, ACS s/p YESENIA to pLAD and mLAD on 04/2014, is referred for CAD. He was last seen in the cardiology office by Dr. Pablo Preciado on 02/28/2018. He denies chest pain, SOB, palpitations, orthopnea, PND, leg swelling, lightheadedness, syncope. He reported fatigue on metoprolol 200 mg po daily and states that his dose was decreased to 25 mg po daily. He reported lightheadedness on higher dose lisinopril and is currently on 10 mg po daily. 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 He reports tingling and numbness in bilateral LE as well as scrotal tingling x 4-5 months. He states that he had bilateral UE and LE BP testing which were normal to his knowledge. ECG showed sinus tachycardia HR 105 Qtc re measured 476 ms TTE 09/23/2023: EF 35% [EF 41% per TTE 2017],0.9/0.9, dilated LV, trace MR, TR PAST MEDICAL HISTORY Diagnosis Date Advance directive discussed with patient 10/22/2021 Discussed 09/2021 Arthritis of both knees 12/12/2019 CAD (coronary artery disease), [place] coronary artery 05/14/[address] Khalil [facility] 05/14/[address] [facility] report from [facility], showed 85% stenosis in pLAD followed by 95% stenosis and 50-75% stenosis in mid LAD. Minimal disease in LCx and LCA. RCA with proximal and distal 25% stenosis. [facility] 05/17 s/p YESENIA x2 to LAD Plan: Dc home with follow-up Continue Plavix Carpal tunnel syndrome of right wrist 10/27/2013 EMG/NCT 10/27/13=mild right CTS Chronic systolic congestive heart failure (HCC) 03/13/2015 08/02/2018: Home BP Cuff Validated. Home BP: 118/71 Office BP: 116/72 Combined forms of age-related cataract of both eyes 06/15/2016 Combined forms of age-related cataract, bilateral 06/15/2016 Congestive heart failure (HCC) 03/13/2015 COPD with chronic bronchitis (HCC) 03/13/2015 Corneal scar, right eye 07/18/2020 DDD (degenerative disc disease), cervical DDD (degenerative disc disease), lumbar 12/07/2019 Depression with anxiety Diabetic eye exam ([facility]) 05/15/2015 Last done 06/27/2018: no retinopathy. Dry eye syndrome of both eyes 07/18/2020 Elevated PSA 01/26/2019 Encounter for Medicare annual wellness exam 11/17/2017 Medicare Part B: 12/23/2016 last done: 09/10/2023 Does not want ELMO or colonoscopy Essential hypertension 09/19/2018 Gastroesophageal reflux disease without esophagitis 03/13/2015 History of compression fracture of spine 1971 [employer] football Iron deficiency anemia 09/26/2019 Iron deficiency anemia 09/26/2019 EGD and colonoscopy done 10/2019 Ischemic cardiomyopathy 05/25/2014 Leukocytosis 09/19/2018 Repeat 10/2018 ok Living will in place 10/22/2021 DPA: Jon (son) Medicare annual wellness visit, initial 11/17/2017 Medicare Part B: 12/23/2016 last done: 01/26/2019 Does not want ELMO or colonoscopy Mixed hyperlipidemia 09/13/2012 Neck pain 10/04/2013 Obesity, Class II, BMI 35-39.9 05/13/2017 Presence of drug coated stent in LAD coronary artery 05/25/2014 Smoker 03/13/2015 Started at 20 yo up to 2 PPD. as of 02/2015 only 5 cigs a day Tachycardia 10/30/2014 Thrombocytosis 09/19/2018 Repeat 10/2018 ok Type 2 diabetes mellitus with diabetic neuropathy, without long-term current use of insulin (HCC) 11/20/2015 Type 2 diabetes mellitus without retinopathy (HCC) 10/12/2014 Vitreous floaters of both eyes 10/12/2014 PAST SURGICAL HISTORY Procedure Laterality Date COLONOSCOPY FLX DX W/COLLJ SPEC WHEN PFRMD 11/16/2019 Colonoscopy ESOPHAGOGASTRODUODENOSCOPY TRANSORAL DIAGNOSTIC 11/16/2019 EGD HEART CATHETERIZATION 05/14/2014 triple vessel disease, YESENIA x 2 to the prox and mid LAD IMMUNOCHEMICAL FECAL OCCULT BLOOD TEST 03/08/2019 negative PAST SURGICAL HISTORY OF 1971 vertebral fracture in football? no repair. REPAIR FINGER TENDON left hand- cut tendons with chain saw TONSILLECTOMY AND ADENOIDECTOMY AGE 14/> 1982 TONSILLECTOMY HX Social History Tobacco Use Smoking status: Every Day Current packs/day: 0.30 Average packs/day: 0.3 packs/day for 40.0 years (12.0 ttl pk-yrs) Types: Cigarettes Passive exposure: Never Smokeless tobacco: Never Tobacco comments: started smoking 20yo, usually 4 cigarettes per day Vaping Use Vaping status: Never Used Substance Use Topics Alcohol use: Yes Comment: few drinks per year Drug use: Never FAMILY HISTORY Problem Relation Age of Onset Emphysema Father Coronary Artery Diseas (more content not included)... [facility] 07-05-2024 Note HNO ID: [id number] Author: HENRY KAUFMAN LPN Service: ? Author Type: LICENSED NURSE Type: Progress Notes Filed: 07/05/2024 14:13 Note Text: Scan on 07/04/2024 4:31 PM by ProviderBonnie PA-C: Consultation - Orthopedics [facility] 07-05-2024 History of Presen t illness Narrative Scan on 07/04/2024 4:31 PM by ProviderBonnie PA-C: Consultation - Orthopedics documented in this encounter [facility] 06-30-2024 Note HNO ID: [id number] Author: HAYLEY GUTIERREZ MD Service: ? Author Type: Physician Type: Progress Notes Filed: 06/30/2024 13:52 Note Text: AMBULATORY TELEPHONE VISIT Victor Hugo Sheth has consented to this telephone encounter. Persons Present: patient Chief Complaint/Reason: Four week follow-up after radiation treatment. HPI: Clinical stage IIA, cT1c, prostatic adenocarcinoma with Mabscott score 7 (3+4), grade group 2 and PSA 5.86 ng/mL. s/p radiation treatment finished on 06/02/24. He is doing well without any specific new complaints. He denies any problems with urination or bowel movements. Data Reviewed: None. Assessment: Clinically stable. Plan: He is scheduled to have PSA at the end of August and then to see Dr. Jefferson and then Brady Martinez in November. Total Time Spent: 10 minutes Hayley Gutierrez MD [facility] 06-30-2024 History of Presen t illness Narrative AMBULATORY TELEPHONE VISIT Victor Hugo Sheth has consented to this telephone encounter. Persons Present: patient Chief Complaint/Reason: Four week follow-up after radiation treatment. HPI: Clinical stage IIA, cT1c, prostatic adenocarcinoma with Mabscott score 7 (3+4), grade group 2 and PSA 5.86 ng/mL. s/p radiation treatment finished on 06/02/24. He is doing well without any specific new complaints. He denies any problems with urination or bowel movements. Data Reviewed: None. Assessment: Clinically stable. Plan: He is scheduled to have PSA at the end of August and then to see Dr. Jefferson and then Brady Martinez in November. Total Time Spent: 10 minutes Hayley Gutierrez MD documented in this encounter [facility] 06-21-2024 Note HNO ID: [id number] Author: HENRY KAUFMAN LPN Service: ? Author Type: LICENSED NURSE Type: Progress Notes Filed: 06/21/2024 14:14 Note Text: Scan on 06/20/2024 5:25 PM by Bonnie Yu PA-C: X-ray [facility] 06-21-2024 History of Presen t illness Narrative Scan on 06/20/2024 5:25 PM by Bonnie Yu PA-C: X-ray documented in this encounter [facility] 06-14-2024 Note HNO ID: [id number] Author: HENRY KAUFMAN LPN Service: ? Author Type: LICENSED NURSE Type: Progress Notes Filed: 06/14/2024 14:08 Note Text: Scan on 06/14/2024 1:07 PM by Bonnie Yu PA-C: Consultation - Vascular Medicine/Vascular Surgery [facility] 06-14-2024 History of Presen t illness Narrative Scan on 06/14/2024 1:07 PM by Bonnie Yu PA-C: Consultation - Vascular Medicine/Vascular Surgery documented in this encounter [facility] 06-13-2024 Note HNO ID: [id number] Author: HENRY KAUFMAN LPN Service: ? Author Type: LICENSED NURSE Type: Progress Notes Filed: 06/13/2024 07:14 Note Text: Scan on 06/12/2024 6:58 PM by Bonnie Yu PA-C: Ultrasound [facility] 06-13-2024 History of Presen t illness Narrative Scan on 06/12/2024 6:58 PM by Provider, MIGUEL ANGEL Nicole: Ultrasound documented in this encounter [facility] 06-02-2024 Note HNO ID: [id number] Author: ALMA DELIA YE RN Service: ? Author Type: Registered Nurse Type: Progress Notes Filed: 06/02/2024 14:44 Note Text: Radiation Therapy - Nursing Note (OTV) PATIENT NAME: Victor Hugo Sheth PATIENT June 02, 2024 [facility] FACILITY/LOCATION: [facility] NOTE TYPE: PROSTATE - MALE PELVIS Subjective Data No c/o Additional Data Do you want to see a Network Engineer? No Status: Patient is male Stress Scale: On a scale of 0 to 10, what number best describes how much distress you have experienced in the past week?(0 being no distress and 10 being extreme distress) 6 Social work notified: Pt denied need to see social service worker at this time. Nursing Assessment Fatigue: moderate; causing difficulty performing some activities Appetite: good Nutritional Intake: Regular oral intake. Weight Gain/Loss: No Ambulatory weight history: Last 6 Encounter Wt Readings: Date: Wt: 06/02/2024 105.7 kg (233 lb) 05/02/2024 108 kg (238 lb 3.2 oz) 03/23/2024 106.1 kg (234 lb) 02/29/2024 102.5 kg (226 lb) 11/23/2023 102.1 kg (225 lb) 09/10/2023 99.3 kg (219 lb) Nausea:None Vomiting: None Bowel Function: normal bowel movements Erythema/Hyperpigmentation:none Desquamation:none Rash:none Skin Care: Aquaphor Skin Sensation: Within Normal Limits Focused Assessment PROSTATE - MALE PELVIS: Rectal bleeding: No. Rectal pain: No. Bladder function: no problems. Urinary frequency (D/N): 6/2-3. AMBULATORY PATIENT EDUCATION NOTE TOPIC: SURVIVAL SKILLS: Symptom Management READINESS TO LEARN COGNITIVE ABILITY: Alert and oriented MOTIVATION TO LEARN: Eager Interested FAMILY SUPPORT: Unable to assess - Family not present INSTRUCTION PROVIDED TO: Patient PATIENT LEARNS BEST BY: Multiple Methods FACTORS AFFECTING LEARNING: None PHYSICAL LIMITATIONS AFFECTING LEARNING: None LEARNING RESPONSE DIAGNOSIS: C61 METHOD OF INSTRUCTION: Teach Back skin care Individual instruction Written instruction/Handouts Verbal instruction PATIENT / FAMILY RESPONSE: Verbalizes understanding of: SYMPTOM MANAGEMENT-Correct actions to take to manage symptoms associated with his/her disease/illness FOLLOW-UP PLAN: Patient instructed to call with any further issues Re-teach - Using different method Contact information given. SUPPLEMENTAL MATERIAL: D/C sheet REFERRAL (RECOMMENDATION): None Written discharge instructions given and reviewed with patient. Patient verbalizes understanding. Encouraged to call with any questions or concerns. Instruction for 4 week phone follow up appointment given by Dr. Gutierrez. Electronically Signed By: Alma Delia Ye RN In Department: RADIATION ONCOLOGY Time spent on patient education: 05 minutes. [facility] 06-02-2024 Note HNO ID: [id number] Author: HAYLEY GUTIERREZ MD Service: ? Author Type: Physician Type: Progress Notes Filed: 06/02/2024 14:44 Note Text: Radiation Oncology - On Treatment Review (OTR) Note PATIENT NAME: Victor Hugo Sheth PATIENT DIAGNOSIS: Clinical stage IIA, cT1c, prostatic adenocarcinoma with Mabscott score 7 (3+4), grade group 2 and PSA 5.86 ng/mL. COURSE: definitive AREA TREATED: Pelvis/Prostate/SV CURRENT DOSE: 7000 cGy in 28 fx PLANNED DOSE: 7000 cGy in 28 fx SUBJECTIVE: He is doing well without any specific new complaints related to radiation treatment. He denies any problems with urination or bowel movements. EXAM: KPS: 90 General Appearance: Alert and oriented. No acute distress. IMAGING/LAB RESULTS: None Treatment chart checked: Yes Patient treatment site reviewed and verified:Yes CBCTs reviewed and current:Yes Medications started: None ASSESSMENT/PLAN: Clinically stable. Toxicity within expected parameters. He finished radiation treatment as planned today. Follow-up with me in four weeks. Hayley Gutierrez MD [facility] 06-02-2024 History of Presen t illness Narrative Radiation Therapy - Nursing Note (OTV) PATIENT NAME: Victor Hugo Sheth PATIENT June 02, 2024 [facility] FACILITY/LOCATION: [facility] NOTE TYPE: PROSTATE - MALE PELVIS Subjective Data No c/o Additional Data Do you want to see a Network Engineer? No Status: Patient is male Stress Scale: On a scale of 0 to 10, what number best describes how much distress you have experienced in the past week?(0 being no distress and 10 being extreme distress) 6 Social work notified: Pt denied need to see social service worker at this time. Nursing Assessment Fatigue: moderate; causing difficulty performing some activities Appetite: good Nutritional Intake: Regular oral intake. Weight Gain/Loss: No Ambulatory weight history: Last 6 Encounter Wt Readings: Date: Wt: 06/02/2024 105.7 kg (233 lb) 05/02/2024 108 kg (238 lb 3.2 oz) 03/23/2024 106.1 kg (234 lb) 02/29/2024 102.5 kg (226 lb) 11/23/2023 102.1 kg (225 lb) 09/10/2023 99.3 kg (219 lb) Nausea:None Vomiting: None Bowel Function: normal bowel movements Erythema/Hyperpigmentation:none Desquamation:none Rash:none Skin Care: Aquaphor Skin Sensation: Within Normal Limits Focused Assessment PROSTATE - MALE PELVIS: Rectal bleeding: No. Rectal pain: No. Bladder function: no problems. Urinary frequency (D/N): 6/2-3. AMBULATORY PATIENT EDUCATION NOTE TOPIC: SURVIVAL SKILLS: Symptom Management READINESS TO LEARN COGNITIVE ABILITY: Alert and oriented MOTIVATION TO LEARN: Eager Interested FAMILY SUPPORT: Unable to assess - Family not present INSTRUCTION PROVIDED TO: Patient PATIENT LEARNS BEST BY: Multiple Methods FACTORS AFFECTING LEARNING: None PHYSICAL LIMITATIONS AFFECTING LEARNING: None LEARNING RESPONSE DIAGNOSIS: C61 METHOD OF INSTRUCTION: Teach Back skin care Individual instruction Written instruction/Handouts Verbal instruction PATIENT / FAMILY RESPONSE: Verbalizes understanding of: SYMPTOM MANAGEMENT-Correct actions to take to manage symptoms associated with his/her disease/illness FOLLOW-UP PLAN: Patient instructed to call with any further issues Re-teach - Using different method Contact information given. SUPPLEMENTAL MATERIAL: D/C sheet REFERRAL (RECOMMENDATION): None Written discharge instructions given and reviewed with patient. Patient verbalizes understanding. Encouraged to call with any questions or concerns. Instruction for 4 week phone follow up appointment given by Dr. Gutierrez. Electronically Signed By: Alma Delia Ye RN In Department: RADIATION ONCOLOGY Time spent on patient education: 05 minutes. Radiation Oncology - On Treatment Review (OTR) Note PATIENT NAME: Victor Hugo Sheth PATIENT DIAGNOSIS: Clinical stage IIA, cT1c, prostatic adenocarcinoma with Mabscott score 7 (3+4), grade group 2 and PSA 5.86 ng/mL. COURSE: definitive AREA TREATED: Pelvis/Prostate/SV CURRENT DOSE: 7000 cGy in 28 fx PLANNED DOSE: 7000 cGy in 28 fx SUBJECTIVE: He is doing well without any specific new complaints related to radiation treatment. He denies any problems with urination or bowel movements. EXAM: KPS: 90 General Appearance: Alert and oriented. No acute distress. IMAGING/LAB RESULTS: None Treatment chart checked: Yes Patient treatment site reviewed and verified:Yes CBCTs reviewed and current:Yes Medications started: None ASSESSMENT/PLAN: Clinically stable. Toxicity within expected parameters. He finished radiation treatment as planned today. Follow-up with me in four weeks. Hayley Gutierrez MD documented in this encounter [facility] 06-02-2024 History of Presen t illness Narrative VICTOR HUGO SHETH [id number] : 1950 06/02/2024 [facility] Department of Radiation Oncology RADIATION ONCOLOGY - COMPLETION NOTE DATE OF SIMULATION: 04/10/24 DATES OF TREATMENT: 04/26/24 - 06/02/24 UNIT: W_TRUEBEAM AREA TREATED: Pelvis/prostate/SV DISEASE: Clinical stage IIA, cT1c, prostatic adenocarcinoma with Eugene score 7 (3+4), grade group 2 and PSA 5.86 ng/mL. DELIVERED DOSE: 7000 cGy in 28 fractions treating to the 97.3% isodose line with 10MV and 3 vmat moore. ELAPSED TIME: 37 days. TOLERANCE/ RESPONSE: He is doing well without any specific new complaints related to radiation treatment. He denies any problems with urination or bowel movements. REMARKS: He tolerated radiation treatment well. Follow-up with me in four weeks. Staff Physician HAYLEY GUTIERREZ M.D. / 52:41 PM Electronically Signed cc: Jorden Hartmann [address] [place] [address] Ayan Jefferson Jr [address] [facility] [id number] documented in this encounter [facility] 06-02-2024 Note HNO ID: [id number] Author: HAYLEY GUTIERREZ MD Service: Radiation Oncology Author Type: Physician Type: Progress Notes Filed: 06/02/2024 14:41 Note Text: VICTOR HUGO SHETH [id number] : 1950 06/02/2024 [facility] Department of Radiation Oncology RADIATION ONCOLOGY - COMPLETION NOTE DATE OF SIMULATION: 04/10/24 DATES OF TREATMENT: 04/26/24 - 06/02/24 UNIT: W_TRUEBEAM AREA TREATED: Pelvis/prostate/SV DISEASE: Clinical stage IIA, cT1c, prostatic adenocarcinoma with Eugene score 7 (3+4), grade group 2 and PSA 5.86 ng/mL. DELIVERED DOSE: 7000 cGy in 28 fractions treating to the 97.3% isodose line with 10MV and 3 vmat moore. ELAPSED TIME: 37 days. TOLERANCE/ RESPONSE: He is doing well without any specific new complaints related to radiation treatment. He denies any problems with urination or bowel movements. REMARKS: He tolerated radiation treatment well. Follow-up with me in four weeks. Staff Physician HAYLEY GUTIERREZ M.D. / 52:41 PM Electronically Signed cc: Jorden Hartmann [address] [place] [address] Ayan Jefferson Jr [address] [facility] [id number] [facility] 05-30-2024 Note HNO ID: [id number] Author: HAYLEY GUTIERREZ MD Service: ? Author Type: Physician Type: Progress Notes Filed: 05/30/2024 14:35 Note Text: Radiation Oncology - On Treatment Review (OTR) Note PATIENT NAME: Victor Hugo Sheth PATIENT DIAGNOSIS: Clinical stage IIA, cT1c, prostatic adenocarcinoma with Mabscott score 7 (3+4), grade group 2 and PSA 5.86 ng/mL. COURSE: definitive AREA TREATED: Pelvis/Prostate/SV CURRENT DOSE: 6250 cGy in 25 fx PLANNED DOSE: 7000 cGy in 28 fx SUBJECTIVE: He is doing well without any specific new complaints related to radiation treatment. He denies any problems with urination or bowel movements. EXAM: KPS: 90 General Appearance: Alert and oriented. No acute distress. IMAGING/LAB RESULTS: None Treatment chart checked: Yes Patient treatment site reviewed and verified:Yes CBCTs reviewed and current:Yes Medications started: None ASSESSMENT/PLAN: Clinically stable. Toxicity within expected parameters. Continue radiation treatment as planned. Hayley Gutierrez MD [facility] 05-30-2024 History of Presen t illness Narrative Radiation Oncology - On Treatment Review (OTR) Note PATIENT NAME: Victor Hugo Sheth PATIENT DIAGNOSIS: Clinical stage IIA, cT1c, prostatic adenocarcinoma with Mabscott score 7 (3+4), grade group 2 and PSA 5.86 ng/mL. COURSE: definitive AREA TREATED: Pelvis/Prostate/SV CURRENT DOSE: 6250 cGy in 25 fx PLANNED DOSE: 7000 cGy in 28 fx SUBJECTIVE: He is doing well without any specific new complaints related to radiation treatment. He denies any problems with urination or bowel movements. EXAM: KPS: 90 General Appearance: Alert and oriented. No acute distress. IMAGING/LAB RESULTS: None Treatment chart checked: Yes Patient treatment site reviewed and verified:Yes CBCTs reviewed and current:Yes Medications started: None ASSESSMENT/PLAN: Clinically stable. Toxicity within expected parameters. Continue radiation treatment as planned. Hayley Gutierrez MD Radiation Therapy - Nursing Note (OTV) PATIENT NAME: Victor Hugo Sheth PATIENT May 30, 2024 [facility] FACILITY/LOCATION: [place] NURSING NOTE TYPE: PROSTATE - MALE PELVIS Subjective Data no new complaints Additional Data Do you want to see a Network Engineer? No Status: Patient is male Stress Scale: On a scale of 0 to 10, what number best describes how much distress you have experienced in the past week?(0 being no distress and 10 being extreme distress) 0 Social work notified: Pt denied need to see social service worker at this time. Nursing Assessment Fatigue: increased fatigue over baseline but not altering normal activities Appetite: good Nutritional Intake: Regular oral intake. Weight Gain/Loss: Not applicable Ambulatory weight history: Last 6 Encounter Wt Readings: Date: Wt: 05/02/2024 108 kg (238 lb 3.2 oz) 03/23/2024 106.1 kg (234 lb) 02/29/2024 102.5 kg (226 lb) 11/23/2023 102.1 kg (225 lb) 09/10/2023 99.3 kg (219 lb) 12/03/2022 101.6 kg (224 lb) Nausea:None Vomiting: None Bowel Function: normal bowel movements Erythema/Hyperpigmentation:none Desquamation:none Rash:none Skin Care: Aquaphor Skin Sensation: Within Normal Limits Focused Assessment PROSTATE - MALE PELVIS: Rectal bleeding: No. Rectal pain: No. Bladder function: no problems. Urinary frequency (D/N): stable/stable. SIGNED by: Sheyla Garcia RN documented in this encounter [facility] 05-30-2024 Note HNO ID: [id number] Author: SHEYLA GARCIA RN Service: ? Author Type: Registered Nurse Type: Progress Notes Filed: 05/30/2024 14:35 Note Text: Radiation Therapy - Nursing Note (OTV) PATIENT NAME: Victor Hugo Sheth PATIENT May 30, 2024 [facility] FACILITY/LOCATION: [facility] NOTE TYPE: PROSTATE - MALE PELVIS Subjective Data no new complaints Additional Data Do you want to see a Network Engineer? No Status: Patient is male Stress Scale: On a scale of 0 to 10, what number best describes how much distress you have experienced in the past week?(0 being no distress and 10 being extreme distress) 0 Social work notified: Pt denied need to see social service worker at this time. Nursing Assessment Fatigue: increased fatigue over baseline but not altering normal activities Appetite: good Nutritional Intake: Regular oral intake. Weight Gain/Loss: Not applicable Ambulatory weight history: Last 6 Encounter Wt Readings: Date: Wt: 05/02/2024 108 kg (238 lb 3.2 oz) 03/23/2024 106.1 kg (234 lb) 02/29/2024 102.5 kg (226 lb) 11/23/2023 102.1 kg (225 lb) 09/10/2023 99.3 kg (219 lb) 12/03/2022 101.6 kg (224 lb) Nausea:None Vomiting: None Bowel Function: normal bowel movements Erythema/Hyperpigmentation:none Desquamation:none Rash:none Skin Care: Aquaphor Skin Sensation: Within Normal Limits Focused Assessment PROSTATE - MALE PELVIS: Rectal bleeding: No. Rectal pain: No. Bladder function: no problems. Urinary frequency (D/N): stable/stable. SIGNED by: Sheyla Garcia RN [facility] 05-26-2024 Evaluation note Diagnosis Onset Date Resolution Claudication noneactive May 26 10:56am Lumbar stenosis with neurogenic claudication acute June 2:26pm Spondylolisthesis at L4-L5 level acute July 04, 2024 2:26pm Carpal tunnel syndrome acute 2024 2:35pm Dog bite of hand acute July 2:35pm Cervical radiculopathy acute Ju 2024 3:16pm Claudication acute September 14 3:16pm DDD (degenerative disc disease) acute September 14, 2024 3:16pm Kyphosis acute September 14 3:16pm Lumbar stenosis with neurogenic claudication acute August 3:16pm Spondylolisthesis at L4-L5 level acute September 14, 2024 3:16pm [facility] Work Phone: 1(259) 727-349104-03-2025 Telephone encounter Note* Telephone Encounter - Venita Ochoa LISW - 05/25/2024 11:42 AM EDT SOCIAL WORK FOLLOW UP NOTE[facility] Date of service: May 25, 2024 Victor Hugo Kaufman Domenic is being seen for a follow up social work visit. Today's visit includes: patient TOPICS ADDRESSED: SW spoke to pt this date who reports he in need of a letter for his insurance company stating his ICD-10 diagnosis code. SW drafted letter and had physician review and sign. Pt reports he will nut picker letter from SW when here for 2:00 radiation this date. Letter ready for pt pick-up and copy sent to internal scanning. No other needs identified. PLAN: Continue follow up as needed F/U APPOINTMENT: PRN Assigned GUILLAUME listed in Care Team tab: Yes GILDARDO Oconnor [facility]04-03-2025 Miscellaneous Notes* Telephone Encounter - Venita Ochoa LISW - 05/25/2024 11:42 AM EDT SOCIAL WORK FOLLOW UP NOTE: [facility] Date of service: May 25, 2024 Victor Hugo Sheth is being seen for a follow up social work visit. Today's visit includes: patient TOPICS ADDRESSED: SW spoke to pt this date who reports he in need of a letter for his insurance company stating his ICD-10 diagnosis code. SW drafted letter and had physician review and sign. Pt reports he will nut picker letter from SW when here for 2:00 radiation this date. Letter ready for pt pick-up and copy sent to internal scanning. No other needs identified. PLAN: Continue follow up as needed F/U APPOINTMENT: PRN Assigned GUILLAUME listed in Care Team tab: Yes GILDARDO Oconnor [facility] NoteHNO ID: [id number] Author: HAYLEY GUTIERREZ MD Service: ? Author Type: Physician Type: Progress Notes Filed: 05/24/2024 14:37 Note Text: Radiation Oncology - On Treatment Review (OTR) Note PATIENT NAME: Victor Hugo Sheth PATIENT DIAGNOSIS: Clinical stage IIA, cT1c, prostatic adenocarcinoma with Eugene score 7 (3+4), grade group 2 and PSA 5.86 ng/mL. COURSE: definitive AREA TREATED: Pelvis/Prostate/SV CURRENT DOSE: 5250 cGy in 21 fx PLANNED DOSE: 7000 cGy in 28 fx SUBJECTIVE: He is doing well without any specific new complaints related to radiation treatment. He denies any problems with urination or bowel movements. EXAM: KPS: 90 General Appearance: Alert and oriented. No acute distress. IMAGING/LAB RESULTS: None Treatment chart checked: Yes Patient treatment site reviewed and verified:Yes CBCTs reviewed and current:Yes Medications started: None ASSESSMENT/PLAN: Clinically stable. Toxicity within expected parameters. Continue radiation treatment as planned. Hayley Gutierrez [facility]04-02-2025 History of Present illness Narrative* Hayley Gutierrez MD - 05/24/2024 2:16 PM EDT Radiation Oncology - On Treatment Review (OTR) Note PATIENT NAME: Victor Hugo Sheth PATIENT DIAGNOSIS: Clinical stage IIA, cT1c, prostatic adenocarcinoma with Eugene score 7 (3+4), grade group 2 and PSA 5.86 ng/mL. COURSE: definitive AREA TREATED: Pelvis/Prostate/SV CURRENT DOSE: 5250 cGy in 21 fx PLANNED DOSE: 7000 cGy in 28 fx SUBJECTIVE: He is doing well without any specific new complaints related to radiation treatment. Hedenies any problems with urination or bowel movements. EXAM: KPS: 90 General Appearance: Alert and oriented. No acute distress. IMAGING/LAB RESULTS: None Treatment chart checked: Yes Patient treatment site reviewed and verified:Yes CBCTs reviewed and current:Yes Medications started: None ASSESSMENT/PLAN: Clinically stable. Toxicity within expected parameters. Continue radiation treatment as planned. Hayley Gutierrez MD * Hayley Gutierrez MD - 05/24/2024 2:07 PM EDT Radiation Therapy - Nursing Note (OTV) PATIENT NAME: Victor Hugo Sheth PATIENT May 24, 2024 [facility] FACILITY/LOCATION: [facility] NOTE TYPE: PROSTATE - MALE PELVIS Subjective Data no complaints Additional Data Do you want to see a Network Engineer? No Status: Patient is male Stress Scale: On a scale of 0 to 10, what number best describes how much distress you have experienced in the past week?(0 being no distress and 10 being extreme distress) 0 Social work notified: Pt denied need to see social service worker at this time. Nursing Assessment Fatigue: none Appetite: good Nutritional Intake: Regular oral intake. Weight Gain/Loss: Not applicable Ambulatory weight history: Last 6 Encounter Wt Readings: Date: Wt: 05/02/2024 108 kg (238 lb 3.2 oz) 03/23/2024 106.1 kg (234 lb) 02/29/2024 102.5 kg (226 lb) 11/23/2023 102.1 kg (225 lb) 09/10/2023 99.3 kg (219 lb) 12/03/2022 101.6 kg (224 lb) Nausea:None Vomiting: None Bowel Function: normal bowel movements Erythema/Hyperpigmentation:none Desquamation:none Rash:none Skin Care: Aquaphor Skin Sensation: Within Normal Limits Focused Assessment PROSTATE - MALE PELVIS: Rectal bleeding: No. Rectal pain: No. Bladder function: no problems. Urinary frequency (D/N): stable/stable. SIGNED by: Sheyla Garcia RN [facility]25 NoteHNO ID: [id number] Author: HAYLEY GUTIERREZ MD Service: ? Author Type: Physician Type: Progress Notes Filed: 05/24/2024 14:37 Note Text: Radiation Therapy - Nursing Note (OTV) PATIENT NAME: Victor Hugo Sheth PATIENT May 24, 2024 [facility] FACILITY/LOCATION: [facility] NOTE TYPE: PROSTATE - MALE PELVIS Subjective Data no complaints Additional Data Do you want to see a Network Engineer? No Status: Patient is male Stress Scale: On a scale of 0 to 10, what number best describes how much distress you have experienced in the past week?(0 being no distress and 10 being extreme distress) 0 Social work notified: Pt denied need to see social service worker at this time. Nursing Assessment Fatigue: none Appetite: good Nutritional Intake: Regular oral intake. Weight Gain/Loss: Not applicable Ambulatory weight history: Last 6 Encounter Wt Readings: Date: Wt: 05/02/2024 108 kg (238 lb 3.2 oz) 03/23/2024 106.1 kg (234 lb) 02/29/2024 102.5 kg (226 lb) 11/23/2023 102.1 kg (225 lb) 09/10/2023 99.3 kg (219 lb) 12/03/2022 101.6 kg (224 lb) Nausea:None Vomiting: None Bowel Function: normal bowel movements Erythema/Hyperpigmentation:none Desquamation:none Rash:none Skin Care: Aquaphor Skin Sensation: Within Normal Limits Focused Assessment PROSTATE - MALE PELVIS: Rectal bleeding: No. Rectal pain: No. Bladder function: no problems. Urinary frequency (D/N): stable/stable. SIGNED by: Sheyla [facility]25 NoteHNO ID: [id number] Author: MOO MABRY MD Service: ? Author Type: Physician Type: Progress Notes Filed: 05/16/2024 14:32 Note Text: Radiation Oncology - On Treatment Review (OTR) Note PATIENT NAME: Victor Hugo Sheth PATIENT DIAGNOSIS: Clinical stage IIA, cT1c, prostatic adenocarcinoma with Eugene score 7 (3+4), grade group 2 and PSA 5.86 ng/mL. COURSE: definitive AREA TREATED: Pelvis/Prostate/SV CURRENT DOSE: 3750 cGy in 15 fx PLANNED DOSE: 7000 cGy in 28 fx SUBJECTIVE: He is doing well without any specific new complaints. Denies fatigue. He denies any problems with urination or bowel movements. EXAM: KPS: 90 General Appearance: Alert and oriented. No acute distress. IMAGING/LAB RESULTS: None Treatment chart checked: Yes Patient treatment site reviewed and verified:Yes CBCTs reviewed and current:Yes Medications started: None ASSESSMENT/PLAN: Clinically stable. Toxicity within expected parameters. Continue radiation treatment as planned. Moo Mabry MD for Hayley Gutierrez MD Radiation Therapy - Nursing Note (OTV) PATIENT NAME: Victor Hugo Sheth PATIENT May 16, 2024 [facility] FACILITY/LOCATION: [facility] NOTE TYPE: PROSTATE - MALE PELVIS Subjective Data I'm doing okay. Additional Data Do you want to see a Network Engineer? No Status: Patient is male Stress Scale: On a scale of 0 to 10, what number best describes how much distress you have experienced in the past week?(0 being no distress and 10 being extreme distress) 7 Social work notified: Pt denied need to see social service worker at this time. Nursing Assessment Fatigue: increased fatigue over baseline but not altering normal activities Appetite: good Nutritional Intake: Regular oral intake. Weight Gain/Loss: Not applicable Ambulatory weight history: Last 6 Encounter Wt Readings: Date: Wt: 05/02/2024 108 kg (238 lb 3.2 oz) 03/23/2024 106.1 kg (234 lb) 02/29/2024 102.5 kg (226 lb) 11/23/2023 102.1 kg (225 lb) 09/10/2023 99.3 kg (219 lb) 12/03/2022 101.6 kg (224 lb) Nausea:None Vomiting: None Bowel Function: normal bowel movements Erythema/Hyperpigmentation:none Desquamation:none Rash:none Skin Care: Aquaphor Skin Sensation: Within Normal Limits Focused Assessment PROSTATE - MALE PELVIS: Rectal bleeding: No. Rectal pain: No. Bladder function: no problems. Urinary frequency (D/N): q3h/q3h. SIGNED by: Shira [facility] History of Present illness Narrative* Moo Mabry MD - 05/16/2024 2:15 PM EDT Radiation Oncology - On Treatment Review (OTR) Note PATIENT NAME: Victor Hugo Sheth PATIENT DIAGNOSIS: Clinical stage IIA, cT1c, prostatic adenocarcinoma with Eugene score 7 (3+4), grade group 2 and PSA 5.86 ng/mL. COURSE: definitive AREA TREATED: Pelvis/Prostate/SV CURRENT DOSE: 3750 cGy in 15 fx PLANNED DOSE: 7000 cGy in 28 fx SUBJECTIVE: He is doing well without any specific new complaints. Denies fatigue. He denies any problems with urination or bowel movements. EXAM: KPS: 90 General Appearance: Alert and oriented. No acute distress. IMAGING/LAB RESULTS: None Treatment chart checked: Yes Patient treatment site reviewed and verified:Yes CBCTs reviewed and current:Yes Medications started: None ASSESSMENT/PLAN: Clinically stable. Toxicity within expected parameters. Continue radiation treatment as planned. Moo Mabry MD for Hayley Gutierrez MD Radiation Therapy - Nursing Note (OTV) PATIENT NAME: Victor Hugo Sheth PATIENT May 16, 2024 [facility] FACILITY/LOCATION: [place] NURSING NOTE TYPE: PROSTATE - MALE PELVIS Subjective Data I'm doing okay. Additional Data Do you want to see a Network Engineer? No Status: Patient is male Stress Scale: On a scale of 0 to 10, what number best describes how much distress you have experienced in the past week?(0 being no distress and 10 being extreme distress) 7 Social work notified: Pt denied need to see social service worker at this time. Nursing Assessment Fatigue: increased fatigue over baseline but not altering normal activities Appetite: good Nutritional Intake: Regular oral intake. Weight Gain/Loss: Not applicable Ambulatory weight history: Last 6 Encounter Wt Readings: Date: Wt: 05/02/2024 108 kg (238 lb 3.2 oz) 03/23/2024 106.1 kg (234 lb) 02/29/2024 102.5 kg (226 lb) 11/23/2023 102.1 kg (225 lb) 09/10/2023 99.3 kg (219 lb) 12/03/2022 101.6 kg (224 lb) Nausea:None Vomiting: None Bowel Function: normal bowel movements Erythema/Hyperpigmentation:none Desquamation:none Rash:none Skin Care: Aquaphor Skin Sensation: Within Normal Limits Focused Assessment PROSTATE - MALE PELVIS: Rectal bleeding: No. Rectal pain: No. Bladder function: no problems. Urinary frequency (D/N): q3h/q3h. SIGNED by: Shira Santos RN documented in this encounterParma [facility]03-[facility]25 Telephone encounter Note * Telephone Encounter - Jennifer Boyce MA - 05/16/2024 9:20 AM EDT Pt notified and verbalized understanding Jennifer Boyce MA [facility]03-25-2025 Miscellaneous Notes* Telephone Encounter - Jennifer Boyce MA - 05/16/2024 9:20 AM EDT Pt notified and verbalized understanding Jennifer Boyce MA * Telephone Encounter - Shawnee Belle APRN.CNP - 05/16/2024 9:06 AM EDT Please let patient know his iron has dropped considerably in the past month. I would advise him to take iron supplement twice weekly to maintain his iron levels and have them rechecked in 1 month. documented in this encounterParma [facility]03-25-2025 Telephone encounter Note * Telephone Encounter - Shawnee Belle APRN.CNP - 05/16/2024 9:06 AM EDT Please let patient know his iron has dropped considerably in the past month. I would advise him to take iron supplement twice weekly to maintain his iron levels and have them rechecked in 1 month. [facility]03-20-[facility] Evaluation note* Diagnosis Onset Date Resolution Status Admit Date Carpal tunnel syndrome acute [facility] 2024 2:54pm Dog bite of hand acute May 112024 2:54pm Lower extremity pain acute Aubrey h 2024 2:54pm Claudication noneactive May 26, 025 10:56am Lumbar stenosis with neuroge glenna claudication acute July 04, 2024 2:26pm Spondylolisthesis at L4-L5 level acu te July 04, 2024 2:26pm Carpal tunnel syndrome acute Ju de 2024 2:35pm Dog bite of hand acute July 2:35pm [facility] Work Phone: 1(588) 154-644203-18-2025 NoteHNO ID: [id number] Author: SHEYLA GARCIA, GARRETT Service: ? Author Type: Registered Nurse Type: Progress Notes Filed: 05/09/2024 14:43 Note Text: Radiation Therapy - Nursing Note (OTV) PATIENT NAME: Victor Hugo Sheth PATIENT May 09, 2024 [facility] FACILITY/LOCATION: [facility] NOTE TYPE: PROSTATE - MALE PELVIS Subjective Data no complaints Additional Data Do you want to see a Network Engineer? No Status: Patient is male Stress Scale: On a scale of 0 to 10, what number best describes how much distress you have experienced in the past week?(0 being no distress and 10 being extreme distress) 8 Social work notified: Pt denied need to see social service worker at this time. Nursing Assessment Fatigue: increased fatigue over baseline but not altering normal activities Appetite: good Nutritional Intake: Regular oral intake. Weight Gain/Loss: Not applicable Ambulatory weight history: Last 6 Encounter Wt Readings: Date: Wt: 05/02/2024 108 kg (238 lb 3.2 oz) 03/23/2024 106.1 kg (234 lb) 02/29/2024 102.5 kg (226 lb) 11/23/2023 102.1 kg (225 lb) 09/10/2023 99.3 kg (219 lb) 12/03/2022 101.6 kg (224 lb) Nausea:None Vomiting: None Bowel Function: normal bowel movements Erythema/Hyperpigmentation:none Desquamation:none Rash:none Skin Care: Aquaphor Skin Sensation: Within Normal Limits Focused Assessment PROSTATE - MALE PELVIS: Rectal bleeding: No. Rectal pain: No. Bladder function: no problems. Urinary frequency (D/N): stable/stable. SIGNED by: Sheyla Garcia RNClinton [facility] Hospital03-18-2025 History of Present illness Narrative* Sheyla Garcia RN - 05/09/2024 2:24 PM EDT Radiation Therapy - Nursing Note (OTV) PATIENT NAME: Victor Hugo Sheth PATIENT May 09, 2024 [facility] FACILITY/LOCATION: [facility] NOTE TYPE: PROSTATE - MALE PELVIS Subjective Data no complaints Additional Data Do you want to see a Network Engineer? No Status: Patient is male Stress Scale: On a scale of 0 to 10, what number best describes how much distress you have experienced in the past week?(0 being no distress and 10 being extreme distress) 8 Social work notified: Pt denied need to see social service worker at this time. Nursing Assessment Fatigue: increased fatigue over baseline but not altering normal activities Appetite: good Nutritional Intake: Regular oral intake. Weight Gain/Loss: Not applicable Ambulatory weight history: Last 6 Encounter Wt Readings: Date: Wt: 05/02/2024 108 kg (238 lb 3.2 oz) 03/23/2024 106.1 kg (234 lb) 02/29/2024 102.5 kg (226 lb) 11/23/2023 102.1 kg (225 lb) 09/10/2023 99.3 kg (219 lb) 12/03/2022 101.6 kg (224 lb) Nausea:None Vomiting: None Bowel Function: normal bowel movements Erythema/Hyperpigmentation:none Desquamation:none Rash:none Skin Care: Aquaphor Skin Sensation: Within Normal Limits Focused Assessment PROSTATE - MALE PELVIS: Rectal bleeding: No. Rectal pain: No. Bladder function: no problems. Urinary frequency (D/N): stable/stable. SIGNED by: Sheyla Garcia RN * Hayley Gutierrez MD - 05/09/2024 2:23 PM EDT Radiation Oncology - On Treatment Review (OTR) Note PATIENT NAME: Victor Hugo Sheth PATIENT DIAGNOSIS: Clinical stage IIA, cT1c, prostatic adenocarcinoma with Mabscott score 7 (3+4), grade group 2 and PSA 5.86 ng/mL. COURSE: definitive AREA TREATED: Pelvis/Prostate/SV CURRENT DOSE: 2500 cGy in 10 fx PLANNED DOSE: 7000 cGy in 28 fx SUBJECTIVE: He is doing well without any specific new complaints. He denies any problems with urination or bowel movements. EXAM: KPS: 90 General Appearance: Alert and oriented. No acute distress. IMAGING/LAB RESULTS: None Treatment chart checked: Yes Patient treatment site reviewed and verified:Yes CBCTs reviewed and current:Yes Medications started: None ASSESSMENT/PLAN: Clinically stable. Toxicity within expected parameters. Continue radiation treatment as planned. Hayley Gutierrez MD documented in this encounterParma Community [facility]03-18-2025 NoteHNO ID: [id number] Author: HAYLEY GUTIERREZ MD Service: ? Author Type: Physician Type: Progress Notes Filed: 05/09/2024 14:43 Note Text: Radiation Oncology - On Treatment Review (OTR) Note PATIENT NAME: Victor Hugo Sheth PATIENT DIAGNOSIS: Clinical stage IIA, cT1c, prostatic adenocarcinoma with Mabscott score 7 (3+4), grade group 2 and PSA 5.86 ng/mL. COURSE: definitive AREA TREATED: Pelvis/Prostate/SV CURRENT DOSE: 2500 cGy in 10 fx PLANNED DOSE: 7000 cGy in 28 fx SUBJECTIVE: He is doing well without any specific new complaints. He denies any problems with urination or bowel movements. EXAM: KPS: 90 General Appearance: Alert and oriented. No acute distress. IMAGING/LAB RESULTS: None Treatment chart checked: Yes Patient treatment site reviewed and verified:Yes CBCTs reviewed and current:Yes Medications started: None ASSESSMENT/PLAN: Clinically stable. Toxicity within expected parameters. Continue radiation treatment as planned. Hayley Gutierrez [facility]03-14-2025 NoteHNO ID: [id number] Author: EHNRY KAUFMAN LPN Service: ? Author Type: LICENSED NURSE Type: Progress Notes Filed: 05/05/2024 09:08 Note Text: Scan on 05/05/2024 12:33 AM by ProviderBonnie PA-C: [facility]03-14-2025 History of Present illness Narrative* Henry Kaufman LPN - 05/05/2024 9:08 AM EDT Scan on 05/05/2024 12:33 AM by ProviderBonnie PA-C: X-ray documented in this encounterParma Community [facility] Hospital03-14-2025 Radiology Diagnostic study note [facility] Imaging Services [facility] [place] [address] Hand Min 3 Views MR#: [id number] Acct: [id number] Name: VICTOR HUGO SHETH Rep #: [id number] : 1950 M 74 From: David Mello MD PCP: Dr. Jorden Hartmann MD Status: REG CLI Study:Hand Min 3 Views Date of Exam: Exam# [id number] Ordering Dr: Lynn Antony MD PROCEDURE: HAND MIN 3 VIEWS REASON FOR EXAM: PAIN TECHNIQUE: 3 view(s) of the right hand COMPARISON: None. FINDINGS: No fracture or dislocation. The joint spaces appear within limits. No radiopaque foreign body identified. 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 Soft tissues are unremarkable. RAD/Hand Min 3 Views IMPRESSION: No fracture or dislocation. 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 Reading Location: [id number] CC: Dr. Jorden Hartmann MD; Dr. Guru Antony MD ~ Biological Sciences Professor: Signed [facility]03-11-2025 NoteHNO ID: [id number] Author: SHIRA SANTOS RN Service: ? Author Type: Registered Nurse Type: Progress Notes Filed: 05/02/2024 14:50 Note Text: Radiation Therapy - Nursing Note (OTV) PATIENT NAME: Victor Hugo Sheth PATIENT May 02, 2024 [facility] FACILITY/LOCATION: [facility] NOTE TYPE: PROSTATE - MALE PELVIS Subjective Data I feel like I'm doing better. Additional Data Do you want to see a Network Engineer? No Status: Patient is male Stress Scale: On a scale of 0 to 10, what number best describes how much distress you have experienced in the past week?(0 being no distress and 10 being extreme distress) 10 Social work notified: Pt denied need to see social service worker at this time. Nursing Assessment Fatigue: increased fatigue over baseline but not altering normal activities Appetite: good Nutritional Intake: Regular oral intake. Weight Gain/Loss: Yes Ambulatory weight history: Last 6 Encounter Wt Readings: Date: Wt: 03/23/2024 106.1 kg (234 lb) 02/29/2024 102.5 kg (226 lb) 11/23/2023 102.1 kg (225 lb) 09/10/2023 99.3 kg (219 lb) 12/03/2022 101.6 kg (224 lb) 11/04/2022 102.5 kg (226 lb) Nausea:None Vomiting: None Bowel Function: normal bowel movements Erythema/Hyperpigmentation:none Desquamation:none Rash:none Skin Care: None Skin Sensation: Within Normal Limits Focused Assessment PROSTATE - MALE PELVIS: Rectal bleeding: No. Rectal pain: No. Bladder function: no problems. Urinary frequency (D/N): 3/3. Q2-3 hrs. I feel like at night time it has improved. I'm going about every 3 hours now. SIGNED by: Shira Santos RNCl[facility] Hospital03-11-2025 History of Present illness Narrative* Shira Santos RN - 05/02/2024 2:11 PM EDT Radiation Therapy - Nursing Note (OTV) PATIENT NAME: Victor Hugo Sheth PATIENT May 02, 2024 [facility] FACILITY/LOCATION: [place] NURSING NOTE TYPE: PROSTATE - MALE PELVIS Subjective Data I feel like I'm doing better. Additional Data Do you want to see a Network Engineer? No Status: Patient is male Stress Scale: On a scale of 0 to 10, what number best describes how much distress you have experienced in the past week?(0 being no distress and 10 being extreme distress) 10 Social work notified: Pt denied need to see social service worker at this time. Nursing Assessment Fatigue: increased fatigue over baseline but not altering normal activities Appetite: good Nutritional Intake: Regular oral intake. Weight Gain/Loss: Yes Ambulatory weight history: Last 6 Encounter Wt Readings: Date: Wt: 03/23/2024 106.1 kg (234 lb) 02/29/2024 102.5 kg (226 lb) 11/23/2023 102.1 kg (225 lb) 09/10/2023 99.3 kg (219 lb) 12/03/2022 101.6 kg (224 lb) 11/04/2022 102.5 kg (226 lb) Nausea:None Vomiting: None Bowel Function: normal bowel movements Erythema/Hyperpigmentation:none Desquamation:none Rash:none Skin Care: None Skin Sensation: Within Normal Limits Focused Assessment PROSTATE - MALE PELVIS: Rectal bleeding: No. Rectal pain: No. Bladder function: no problems. Urinary frequency (D/N): 3/3. Q2-3 hrs. I feel like at night time it has improved. I'm going about every3 hours now. SIGNED by: Shira Santos RN * Hayley Gutierrez MD - 05/02/2024 1:56 PM EDT Radiation Oncology - On Treatment Review (OTR) Note PATIENT NAME: Victor Hugo Sheth PATIENT DIAGNOSIS: Clinical stage IIA, cT1c, prostatic adenocarcinoma with Eugene score 7 (3+4), grade group 2 and PSA 5.86 ng/mL. COURSE: definitive AREA TREATED: Pelvis/Prostate/SV CURRENT DOSE: 1250 cGy in 5 fx PLANNED DOSE: 7000 cGy in 28 fx SUBJECTIVE: He has mild fatigue. He denies any problems with urination or bowel movements. EXAM: KPS: 90 General Appearance: Alert and oriented. No acute distress. IMAGING/LAB RESULTS: None Treatment chart checked: Yes Patient treatment site reviewed and verified:Yes CBCTs reviewed and current:Yes Medications started: None ASSESSMENT/PLAN: Clinically stable. Toxicity within expected parameters. Continue radiation treatment as planned. Hayley Gutierrez MD documented in this encounterParma [facility]03-11-2025 NoteHNO ID: [id number] Author: HAYLEY GUTIERREZ MD Service: ? Author Type: Physician Type: Progress Notes Filed: 05/02/2024 14:50 Note Text: Radiation Oncology - On Treatment Review (OTR) Note PATIENT NAME: Victor Hugo Sheth PATIENT DIAGNOSIS: Clinical stage IIA, cT1c, prostatic adenocarcinoma with Mabscott score 7 (3+4), grade group 2 and PSA 5.86 ng/mL. COURSE: definitive AREA TREATED: Pelvis/Prostate/SV CURRENT DOSE: 1250 cGy in 5 fx PLANNED DOSE: 7000 cGy in 28 fx SUBJECTIVE: He has mild fatigue. He denies any problems with urination or bowel movements. EXAM: KPS: 90 General Appearance: Alert and oriented. No acute distress. IMAGING/LAB RESULTS: None Treatment chart checked: Yes Patient treatment site reviewed and verified:Yes CBCTs reviewed and current:Yes Medications started: None ASSESSMENT/PLAN: Clinically stable. Toxicity within expected parameters. Continue radiation treatment as planned. Hayley Gutierrez [facility]02-27-2025 Evaluation note* Diagnosis Onset Date Resolution Status Admit Date Carpal tunnel syndrome acute Fe bruary 2024 3:08pm Dog bite of hand acute April 20, 2024 3:08pm Lower extremity pain acute 2024 3:08pm Carpal tunnel syndrome acute Ma rc 2024 2:54pm Dog bite of hand acute May 112024 2:54pm Lower extremity pain acute Aubrey h 2024 2:54pm [facility] Work Phone: 1(259) 894-435002-27-2025 Evaluation note* Diagnosis Onset Date Resolution Status Admit Date Carpal tunnel syndrome acute Fe bruary 2024 3:08pm Dog bite of hand acute April 20, 2024 3:08pm Lower extremity pain acute 2024 3:08pm Carpal tunnel syndrome acute Ma [facility] 2024 2:54pm Dog bite of hand acute May 112024 2:54pm Lower extremity pain acute Aubrey h 2024 2:54pm Claudication noneactive May 26, 2 025 10:56am [employer] Work Phone: 1(632) 274-717802-27-2025 Evaluation note* Diagnosis Onset Date Resolution Status Admit Date Carpal tunnel syndrome acute Fe bruary 2024 3:08pm Dog bite of hand acute April 20, 2024 3:08pm Lower extremity pain acute ua2024 3:08pm Carpal tunnel syndrome acute Ma [facility] 2024 2:54pm Dog bite of hand acute May 112024 2:54pm Lower extremity pain acute Aubrey h 2024 2:54pm Claudication noneactive May 26, 2 025 10:56am Lumbar stenosis with neuroge glenna claudication acute July 04, 2024 2 :26pm Spondylolisthesis at L4-L5 level acute July 04, 2024 2 :26pm [place] [employer] [facility] Work Phone: 1(504) 420-473802-17-2025 NoteHNO ID: [id number] Author: ALMA DELIA YE RN Service: ? Author Type: Registered Nurse Type: Progress Notes Filed: 04/10/2024 11:18 Note Text: Radiation Therapy - Patient Education Note PATIENT NAME: Victor Hugo Sheth PATIENT April 10, 2024 [facility] FACILITY/LOCATION: [place] READINESS TO LEARN Cognitive Ability: Alert and oriented Motivation to learn: Eager Interested Family Support: High - Very involved in pt care Instruction provide to: Patient and family member Patient learns best by: Multiple Methods Factors effecting learning: None Physical limitations effecting learning: None LEARNING RESPONSE Diagnosis: Pt simulated today for radiation therapy to prostate. Education Topic/Teaching Points: Radiation therapy, Side effects, and OTV: Method of instruction: Teach Back skin care Individual instruction Written instruction/Handouts Verbal instruction Patient /Family response: Patient and family verbalized understanding of radiation treatments, side effects, OTV, and transportation. Follow-up plan: Patient instructed to call with any further issues Contact information given. Supplemental material: Informational handouts on Department phone list, Bladder function, Diarrhea, Fatigue, and [place] instructions, XRT sheet and Aquaphor handout. Referral (recommendation): None, Pt denied need for social work, van service, and sample box maker. Patient has an Onbody or Implanted device: No Signed by: Alma Delia Ye RNClinton [facility] Hospital02-17-2025 History of Present illness Narrative* Alma Delia Ye RN - 04/10/2024 11:16 AM EST Radiation Therapy - Patient Education Note PATIENT NAME: Victor Hugo Sheth PATIENT April 10, 2024 [facility] FACILITY/LOCATION: [place] READINESS TO LEARN Cognitive Ability: Alert and oriented Motivation to learn: Eager Interested Family Support: High - Very involved in pt care Instruction provide to: Patient and family member Patient learns best by: Multiple Methods Factors effecting learning: None Physical limitations effecting learning: None LEARNING RESPONSE Diagnosis: Pt simulated today for radiation therapy to prostate. Education Topic/Teaching Points: Radiation therapy, Side effects, and OTV: Method of instruction: Teach Back skin care Individual instruction Written instruction/Handouts Verbal instruction Patient /Family response: Patient and family verbalized understanding of radiation treatments, sideeffects, OTV, and transportation. Follow-up plan: Patient instructed to call with any further issues Contact information given. Supplemental material: Informational handouts on Department phone list, Bladder function, Diarrhea,Fatigue, and [place] instructions, XRT sheet and Aquaphor handout. Referral (recommendation): None, Pt denied need for social work, van service, and sample box maker. Patient has an Onbody or Implanted device: No Signed by: Alma Delia Ye RN documented in this encounterParma [facility]02-17-2025 History of Present illness Narrative* Hayley Gutierrez MD - 04/10/2024 12:00 AM EST VICTOR HUGO SHETH [id number] 04/10/2024 [facility] Department of Radiation Oncology [facility] RADIATION ONCOLOGY SIMULATION NOTE DATE OF SIMULATION: 04/10/2024 MACHINE: Siemens Definition CT Simulator Diagnosis: Clinical stage IIA, cT1c, prostatic adenocarcinoma with Eugene score 7 (3+4), grade group 2 and PSA 5.86 ng/mL. AREA:Pelvis/Prostate/SV PATIENT POSITION: Supine. CONTRAST: None PROTOCOL: None BLOCKING: Custom blocking to be determined at treatment planning. FIXATION DEVICE: In order to achieve accurate and reproducible treatments, the patient is to be immobilized with pillows and vac bag. PROCEDURE: A time-out was conducted and recorded by the therapist. Patient was simulated on the CT scanner for external beam radiation therapy. Treatment site was marked by the simulation therapist. ASSESSMENT/PLAN: Patient tolerated simulation procedure well. Treatments will be initiated after treatment planning. The patient is scheduled for a verification simulation on the treatment machine toensure proper set-up and field arrangement is correct prior to the first treatment of primary and boost moore if applicable. Electronically Signed Hayley Gutierrez M.D./sergei 52:34 PM documented in this encounterParma Community [facility] Hospital02-17-2025 History of Present illness Narrative* Hayley Gutierrez MD - 04/10/2024 12:00 AM EST VICTOR HUGO SHETH [id number] 04/10/2024 [facility] Department of Radiation Oncology Treatment Planning Note For reasons stated in the consult note, Victor Hugo Sheth is a candidate for radiation therapy. Based on review and interpretation of the relevant diagnostic studies together with the exam findings, Victor Hugo Sheth was simulated on 04/10/2024 at which time the target volume and/or requisite moore were d elineated, as indicated in the simulation note, to be treated according to the prescription. The treatment target and organs at risk were contoured on the simulation scan. After reviewing multiple treatment plans with dosimetry, the best plan was approved to deliver the prescribed course of radiation to the target area using inverse planning to allow for the best isodose distribution, treating to the 97.3% isodose line with 10MV and 3 vmat moore. Custom MLC for IMRT were the treatment device(s) used to shape/modify the beams. Limiting dose to normal tissue was confirmed upon review ofthe calculated dose volume histogram. IMRT planning was used because it best met the dose/volume constraints for the organs at risk for this patient, better than what could be achieved using conventional or 3D planning. The specific doserequirements for the PTV, organs at risk and dose-volume histograms are contained in this treatmentplan and/or elsewhere in the medical record. A completed summary of this plan dated 04/13/2024 incorporated herein by reference includes dose, beam arrangements, energy, blocking, isodose distribution, and/or ports and DVH. Electronically Signed Hayley Gutierrez M.D. 51:09 PM documented in this encounterParma Community [facility]02-17-2025 NoteHNO ID: [id number] Author: HAYLEY GUTIERREZ MD Service: Radiation Oncology Author Type: Physician Type: Progress Notes Filed: 04/11/2024 14:34 Note Text: VICTOR HUGO SHETH [id number] 04/10/2024 [facility] Department of Radiation Oncology [facility] RADIATION ONCOLOGY SIMULATION NOTE DATE OF SIMULATION: 04/10/2024 MACHINE: Siemens Definition CT Simulator Diagnosis: Clinical stage IIA, cT1c, prostatic adenocarcinoma with Eugene score 7 (3+4), grade group 2 and PSA 5.86 ng/mL. AREA:Pelvis/Prostate/SV PATIENT POSITION: Supine. CONTRAST: None PROTOCOL: None BLOCKING: Custom blocking to be determined at treatment planning. FIXATION DEVICE: In order to achieve accurate and reproducible treatments, the patient is to be immobilized with pillows and vac bag. PROCEDURE: A time-out was conducted and recorded by the therapist. Patient was simulated on the CT scanner for external beam radiation therapy. Treatment site was marked by the simulation therapist. ASSESSMENT/PLAN: Patient tolerated simulation procedure well. Treatments will be initiated after treatment planning. The patient is scheduled for a verification simulation on the treatment machine to ensure proper set-up and field arrangement is correct prior to the first treatment of primary and boost moore if applicable. Electronically Signed Hayley Gutierrez M.D./sergei :34 [facility]02-17-2025 NoteHNO ID: [id number] Author: HAYLEY GUTIERREZ MD Service: Radiation Oncology Author Type: Physician Type: Progress Notes Filed: 04/13/2024 13:09 Note Text: VICTOR HUGO SHETH [id number] 04/10/2024 [facility] Department of Radiation Oncology Treatment Planning Note For reasons stated in the consult note, Victor Hugo Sheth is a candidate for radiation therapy. Based on review and interpretation of the relevant diagnostic studies together with the exam findings, Victor Hugo Sheth was simulated on 04/10/2024 at which time the target volume and/or requisite moore were delineated, as indicated in the simulation note, to be treated according to the prescription. The treatment target and organs at risk were contoured on the simulation scan. After reviewing multiple treatment plans with dosimetry, the best plan was approved to deliver the prescribed course of radiation to the target area using inverse planning to allow for the best isodose distribution, treating to the 97.3% isodose line with 10MV and 3 vmat moore. Custom MLC for IMRT were the treatment device(s) used to shape/modify the beams. Limiting dose to normal tissue was confirmed upon review of the calculated dose volume histogram. IMRT planning was used because it best met the dose/volume constraints for the organs at risk for this patient, better than what could be achieved using conventional or 3D planning. The specific dose requirements for the PTV, organs at risk and dose-volume histograms are contained in this treatment plan and/or elsewhere in the medical record. A completed summary of this plan dated 04/13/2024 incorporated herein by reference includes dose, beam arrangements, energy, blocking, isodose distribution, and/or ports and DVH. Electronically Signed Hayley Gutierrez M.D. :09 [facility]02-14-2025 Telephone encounter Note* Telephone Encounter - Chey Bradford - 04/07/2024 3:39 PM EST Patient called stating he received message from therapist and will be here on the 17 [facility] Work Phone: 1(341) 420-537102-14-2025 Miscellaneous Notes* Telephone Encounter - Chey Bradford - 04/07/2024 3:39 PM EST Patient called stating he received message from therapist and will be here on the * Telephone Encounter - Alma Delia Ye RN - 04/07/2024 8:30 AM EST Pt called to inform Dr Gutierrez that he would like to proceed with radiation therapy. He will await a telephone call from the therapists to set up his simulation appointment. documented in [facility] encounter[facility] Telephone encounter Note * Telephone Encounter - Alma Delia Ye RN - 04/07/2024 8:30 AM EST Pt called to inform Dr Gutierrez that he would like to proceed with radiation therapy. He will await a telephone call from the therapists to set up his simulation appointment. [facility]02-12-2025 NoteHNO ID: [id number] Author: ?, ?, ? Service: ? Author Type: ? Type: Progress Notes Filed: 04/05/2024 10:06 Note Text: I CALLED AND SPOKE TO PATIENT AND SCHEDULED HIM FOR A PHONE CALL VISIT FOR 05/01/24 @ 3:30 PM PER HIS REQUEST I ALSO LET HIM KNOW THAT SOMEONE WILL BE IN CONTACT WITH HIM [facility] of Present illness Narrative* Jo Oh - 04/05/2024 10:06 AM EST I CALLED AND SPOKE TO PATIENT AND SCHEDULED HIM FOR A PHONE CALL VISIT FOR 05/01/24 @ 3:30 PM PER HIS REQUEST I ALSO LET HIM KNOW THAT SOMEONE WILL BE IN CONTACT WITH HIM ABOUT RADIATION COST * Hayley Gutierrez MD - 04/03/2024 3:46 PM EST AMBULATORY TELEPHONE VISIT Victor Hugo Sheth has consented to this telephone encounter. Persons Present: patient Chief Complaint/Reason: Prostate cancer HPI: Clinical stage IIA, cT1c, prostatic adenocarcinoma with Mabscott score 7 (3+4), grade group 2 and PSA 5.86 ng/mL. I saw him two weeks ago and went over treatment options with him. He is interested in radiation treatment. He doesn't want hormonal therapy. Data Reviewed: None. Assessment: Clinical stage IIA, cT1c, prostatic adenocarcinoma with Eugene score 7 (3+4), grade group 2 and PSA 5.86 ng/mL. Plan: He wishes to know the cost of treatment first before proceeding. He will talk to financial counselors. Phone visit with me in a month to confirm if he wishes to proceed. Total Time Spent: 10 minutes Hayley Gutierrez MD documented in [facility] encounterPar[facility]25 NoteHNO ID: [id number] Author: HAYLEY GUTIERREZ MD Service: ? Author Type: Physician Type: Progress Notes Filed: 04/05/2024 10:06 Note Text: AMBULATORY TELEPHONE VISIT Victor Hugo Sheth has consented to this telephone encounter. Persons Present: patient Chief Complaint/Reason: Prostate cancer HPI: Clinical stage IIA, cT1c, prostatic adenocarcinoma with Mabscott score 7 (3+4), grade group 2 and PSA 5.86 ng/mL. I saw him two weeks ago and went over treatment options with him. He is interested in radiation treatment. He doesn't want hormonal therapy. Data Reviewed: None. Assessment: Clinical stage IIA, cT1c, prostatic adenocarcinoma with Mabscott score 7 (3+4), grade group 2 and PSA 5.86 ng/mL. Plan: He wishes to know the cost of treatment first before proceeding. He will talk to financial counselors. Phone visit with me in a month to confirm if he wishes to proceed. Total Time Spent: 10 minutes Hayley Gutierrez [facility]02-07-2025 Telephone encounter Note* Telephone Encounter - Sheyla Garcia RN - 03/31/2024 9:50 AM EST Pt has phone call appointment with Dr Gutierrez 04/03 concenring if he is going to do radiation or not. Orders will not be in until he tells us he wants to proceed. [facility]02-07-2025 Miscellaneous Notes* Telephone Encounter - Sheyla Garcia RN - 03/31/2024 9:50 AM EST Pt has phone call appointment with Dr Gutierrez 10 concenring if he is going to do radiation or not. Orders will not be in until he tells us he wants to proceed. * Telephone Encounter - Chey Bradford - 03/27/2024 3:46 PM EST Patient called asking what his out of pocket would be for radiation treatment. Patient was advised to wait until appointments were scheduled and then speak with financial. documented in [facility] Telephone encounter Note * Telephone Encounter - Chey Bradford - 03/27/2024 3:46 PM EST Patient called asking what his out of pocket would be for radiation treatment. Patient was advised to wait until appointments were scheduled and then speak with financial. [facility] Work Phone: 1(948) 583-450201-30-2025 NoteHNO ID: [id number] Author: HAYLEY UGTIERREZ MD Service: ? Author Type: Physician Type: Progress Notes Filed: 03/28/2024 10:31 Note Text: Radiation Therapy - Nursing Note (Consult) PATIENT NAME: Victor Hugo Sheth PATIENT March 23, 2024 [facility] FACILITY/LOCATION: [place] Chief Complaint: consult Reason for visit: Consult. Referring physician: Internal provider Dr Jefferson Subjective Data: pt reports urinary frequency Additional Data Do you want to see a Network Engineer? No Are you interested in information about fertility? No Status: Patient is male Stress Scale: On a scale of 0 to 10, what number best describes how much distress you have experienced in the past week?(0 being no distress and 10 being extreme distress) 8 Social work notified: Pt denied need to see social service worker at this time. SIGNED by: Alma Delia [facility] History of Present illness Narrative* Hayley Gutierrez MD - 03/23/2024 1:49 PM EST Radiation Therapy - Nursing Note (Consult) PATIENT NAME: Victor Hugo Sheth PATIENT March 23, 2024 [facility] FACILITY/LOCATION: [place] Chief Complaint: consult Reason for visit: Consult. Referring physician: Internal provider Dr Jefferson Subjective Data: pt reports urinary frequency Additional Data Do you want to see a Network Engineer? No Are you interested in information about fertility? No Status: Patient is male Stress Scale: On a scale of 0 to 10, what number best describes how much distress you have experienced in the past week?(0 being no distress and 10 being extreme distress) 8 Social work notified: Pt denied need to see social service worker at this time. SIGNED by: Alma Delia Ye RN * Hayley Gutierrez MD - 03/23/2024 1:44 PM EST Radiation Oncology - New Patient/Consult Note PATIENT NAME: Victor Hugo Sheth PATIENT REQUESTING PROVIDER: Dr.Michael Kristine Jefferson Jr DIAGNOSIS: Clinical stage IIA, cT1c, prostatic adenocarcinoma with Eugene score 7 (3+4), grade group 2 and PSA 5.86 ng/mL. Cancer Staging Prostate cancer (HCC) Staging form: Prostate Cancer - Clinical stage from 03/03/2024: Stage IIA (T1c, N0, M0, PSA: Less than 10, Mabscott 7) - Signed by Ayan Jefferson Jr., MD on 03/03/2024 HPI: 74 year old male who presents with above diagnosis, for an opinion regarding the role of radiation therapy in the management of the patient's disease. Final recommendations will be communicated back to the requesting physician by way of the shared medical record, or letter to requesting physician via US mail. 74 year old man who had elevated PSA to 4.5 recently. It was 2.54 on 07/12/19 and 3.33 on 04/14/21, 3.18 on 03/17/22, 4 on 10/01/22, 4.5 on 08/20/23 and then 5.86 on 11/24/23. isoPSA was 6.3. He was seen by Dr. Jefferson and underwent TRUS and prostate biopsy on 02/29/24. A prostate volume of approximately 29.69 grams. The prostate was homogeneous. Biopsy results are as follows: FINAL DIAGNOSIS A. Prostate, left base, core biopsy: - Prostatic adenocarcinoma, Mabscott score 3+3=6 (Grade Group 1), involving 1 of 1 core (1 mm, 5%). B. Prostate, left mid, core biopsy: - Atypical small acinar proliferation adjacent to high-grade prostatic intraepithelial neoplasia (PIN), suspicious for adenocarcinoma but cannot exclude outpouchings of high-grade PIN. C. Prostate, left apex, core biopsy: - Prostatic adenocarcinoma, Mabscott score 3+3=6 (Grade Group 1), involving 1 of 1 core (4 mm, 30%). D. Prostate, left lateral base, core biopsy: - High-grade prostatic intraepithelial neoplasia (PIN). E. Prostate, left lateral mid, core biopsy: - Prostatic adenocarcinoma, Eugene score 3+3=6 (Grade Group 1), involving 1 of 1 core (1 mm, 5%). F. Prostate, left lateral apex, core biopsy: - Benign prostatic tissue. G. Prostate, right base, core biopsy: - Benign prostatic tissue. H. Prostate, right mid, core biopsy: - Prostatic adenocarcinoma, Mabscott score 3+3=6 (Grade Group 1), involving 1 of 1 core (<1 mm, 5%). I. Prostate, right apex, core biopsy: - Benign prostatic tissue. J. Prostate, right lateral base, core biopsy: - Prostatic adenocarcinoma, Eugene score 3+4=7 (Grade Group 2), involving 1 of 1 core (discontinuous 8 mm, 45%). - Percentage of Eugene pattern 4 = 40%. K. Prostate, right lateral mid, core biopsy: - Prostatic adenocarcinoma, Eugene score 3+4=7 (Grade Group 2), involving 1 of 1 core (1 mm, 5%). - Percentage of Eugene pattern 4 = 30%. L. Prostate, right lateral apex, core biopsy: - Prostatic adenocarcinoma, Eugene score 3+3=6 (Grade Group 1), involving 1 of 1 core (discontinuous 13 mm, 70%). Prostate Cancer Biopsy Summary Number of cores examined: 12 Number of cores positive: 7 Highest Grade Group: 2 Highest % of core involvement: 70% (discontinuous 13 mm) Unfavorable histology: Present (Less than 10%) Borderline histology: Not applicable Large cribriform pattern 4: Absent Intraductal carcinoma: Absent ALLERGIES Allergen Reactions Rybelsus [Semagluti* Diarrhea Current Outpatient Medications on File Prior to Visit Medication Sig atorvastatin (LIPITOR) 80 mg tablet Take 1 tablet by mouth daily at bedtime. glimepiride (AMARYL) 4 mg tablet Take 1 tablet by mouth two times a day with meals. clopidogrel (PLAVIX) 75 mg tablet Take 1 tablet by mouth once daily. empagliflozin (JARDIANCE) 25 mg tablet Take 1 tablet by mouth daily with breakfast. lisinopril (ZESTRIL) 10 mg tablet Take 1 tablet by mouth once daily. metFORMIN (GLUCOPHAGE) 1,000 mg tablet Take 1 tablet by mouth two times a day with meals. metoprolol succinate ER (TOPROL XL) 25 mg 24 hr tablet Take 1 tablet by mouth once daily. SITagliptin phosphate (JANUVIA) 100 mg tablet Take 1 tablet by mouth once daily. blood sugar diagnostic (BLOOD GLUCOSE TEST) test strip Test blood sugar(s) 2 times daily. Dx: OtherDM Code E11.42 Insulin: No albuterol HFA (PROVENTIL HFA, VENTOLIN HFA) 90 mcg/actuation inhaler Inhale 2 Puffs as instructed every 4 hours as needed. Lancets lancets Test blood sugar(s) 2 times daily. Dx: Other DM Code E11.42 Insulin: No Blood-Glucose Meter Test Blood Sugars 2 times daily Dx E11.42 Insulin: No flash glucose sensor (FREESTYLE ADRIAN 10 DAY SENSOR) kit 1 Each one time a week. Check blood sugar twice a day flash glucose scanning reader (FREESTYLE ADRIAN 10 DAY READER) 1 Device twice daily. Check blood sugar twice a day No current facility-administered medications on file prior to visit. PAST MEDICAL HISTORY Diagnosis Date Advance directive discussed with patient 10/22/2021 Discussed 09/2021 Arthritis of both knees 12/12/2019 CAD (coronary artery disease), [place] coronary artery 05/14/[address] Khalil [facility] 05/14/[address] [facility] report from [facility], showed 85% stenosis in pLAD followed by 95% stenosis and 50-75% stenosis in mid LAD. Minimal disease in LCx and LCA. RCA withproximal and distal 25% stenosis. [facility] 05/17 s/p YESENIA x2 to LAD Plan: Dc home with follow-up Continue Plavix Carpal tunnel syndrome of right wrist 10/27/2013 EMG/NCT 10/27/13=mild right CTS Chronic systolic congestive heart failure (HCC) 03/13/2015 08/02/2018: Home BP Cuff Validated. Home BP: 118/71 Office BP: 116/72 Combined forms of age-related cataract of both eyes 06/15/2016 Combined forms of age-related cataract, bilateral 06/15/2016 Congestive heart failure (HCC) 03/13/2015 COPD with chronic bronchitis (HCC) 03/13/2015 Corneal scar, right eye 07/18/2020 DDD (degenerative disc disease), cervical DDD (degenerative disc disease), lumbar 12/07/2019 Depression with anxiety Diabetic eye exam (HCC) 05/15/2015 Last done 06/27/2018: no retinopathy. Dry eye syndrome of both eyes 07/18/2020 Elevated PSA 01/26/2019 Encounter for Medicare annual wellness exam 11/17/2017 Medicare Part B: 12/23/2016 last done: 09/10/2023 Does not want ELMO or colonoscopy Essential hypertension 09/19/2018 Gastroesophageal reflux disease without esophagitis 03/13/2015 History of compression fracture of spine 1971 high school football Iron deficiency anemia 09/26/2019 Iron deficiency anemia 09/26/2019 EGD and colonoscopy done 10/2019 Ischemic cardiomyopathy 05/25/2014 Leukocytosis 09/19/2018 Repeat 10/2018 ok Living will in place 10/22/2021 DPA: Jon (son) Medicare annual wellness visit, initial 11/17/2017 Medicare Part B: 12/23/2016 last done: 01/26/2019 Does not want ELMO or colonoscopy Mixed hyperlipidemia 09/13/2012 Neck pain 10/04/2013 Obesity, Class II, BMI 35-39.9 05/13/2017 Presence of drug coated stent in LAD coronary artery 05/25/2014 Smoker 03/13/2015 Started at 20 yo up to 2 PPD. as of 02/2015 only 5 cigs a day Tachycardia 10/30/2014 Thrombocytosis 09/19/2018 Repeat 10/2018 ok Type 2 diabetes mellitus with diabetic neuropathy, without long-term current use of insulin (HCC) 11/20/2015 Type 2 diabetes mellitus without retinopathy (HCC) 10/12/2014 Vitreous floaters of both eyes 10/12/2014 Prior radiation therapy, collagen vascular disease, or inflammatory bowel disease: No Any implanted or external electric devices? No PAST SURGICAL HISTORY Procedure Laterality Date COLONOSCOPY FLX DX W/COLLJ SPEC WHEN PFRMD 11/16/2019 Colonoscopy ESOPHAGOGASTRODUODENOSCOPY TRANSORAL DIAGNOSTIC 11/16/2019 EGD FECAL OCCULT BLOOD TEST 03/08/2019 negative HEART CATHETERIZATION 05/14/14 triple vessel disease, YESENIA x 2 to the prox and mid LAD PAST SURGICAL HISTORY OF 1970 vertebral fracture in football? no repair. REPAIR FINGER TENDON left hand- cut tendons with chain saw TONSILLECTOMY & ADENOIDECTOMY AGE 14/> 1982 TONSILLECTOMY HX FAMILY HISTORY Problem Relation Age of Onset Emphysema Father Coronary Artery Disease Brother CABG Hypertension Brother Prostate Cancer Brother Social History Tobacco Use Smoking status: Every Day Current packs/day: 0.30 Average packs/day: 0.3 packs/day for 40.0 years (12.0 ttl pk-yrs) Types: Cigarettes Passive exposure: Never Smokeless tobacco: Never Tobacco comments: started smoking 20yo, usually 4 cigarettes per day Vaping Use Vaping status: Never Used Substance Use Topics Alcohol use: Yes Comment: few drinks per year Drug use: Never COMPLETE REVIEW OF SYSTEMS: GENERAL: feeling well without fatigue, no recent change in weight HEENT: denies HENRIQUEZ, change in hearing or vision, no other ENT complaints NECK: denies swelling or pain in neck RESPIRATORY: shortness of breath on exertion. CARDIOVASCULAR: h/o CAD s/p two stents. GI: normal appetite, tolerating PO well, BMs normal, and no abdominal pain : frequency. MUSCULOSKELETAL: arthritis pain in shoulder/neck. SKIN: no rash HEMATOLOGY/LYMPHOLOGY: negative for prolonged bleeding, no swollen lymph nodes NEURO: numbness/tingling in hands. PHYSICAL EXAM: VS: BP 131/84 Pulse 99 Temp 36.1 C (97 F) (Temporal) Resp 16 Wt 106.1 kg (234 lb) SpO2 97% BMI 36.65 kg/m KPS: 100 General Appearance: Alert and oriented. No acute distress. HEENT: NCAT. Sclera anicteric. EOMI. Neck: Normal ROM. Chest: No respiratory distress. Musculoskeletal: Normal ROM in extremities. Neuro: Speech fluent. Gait normal. No focal deficits. Hematologic: No signs of active bleeding RADIOLOGY/LABORATORY DATA: see HPI ASSESSMENT AND PLAN: 74 year old man with clinical stage IIA, cT1c, prostatic adenocarcinoma with Eugene score 7 (3+4), grade group 2 and PSA 5.86 ng/mL. His biopsy showed that 7/12, more than 50% of cores, were involved with malignancy. He is in unfavorable intermediate risk group. I went over management options of prostate cancer such as radiation treatment, seed implant, surgery, hormonal therapy and active surveillance. I discussed the rationale, benefits and potential complications of radiation treatment in detail. He wishes to think over and will let us know of his decision later. Thank you very much for allowing us to participate in his care. Signed by: Hayley Gutierrez MD cc: Jorden Hartmann [address] [place] [address] Ayan Jefferson [address] [address] documented in this encounterPar[facility]01-30-2025 NoteHNO ID: [id number] Author: HAYLEY GUTIERREZ MD Service: ? Author Type: Physician Type: Progress Notes Filed: 03/28/2024 10:31 Note Text: Radiation Oncology - New Patient/Consult Note PATIENT NAME: Victor Hugo Sheth PATIENT REQUESTING PROVIDER: Dr.Michael Kristine Jefferson Jr DIAGNOSIS: Clinical stage IIA, cT1c, prostatic adenocarcinoma with Mabscott score 7 (3+4), grade group 2 and PSA 5.86 ng/mL. Cancer Staging Prostate cancer (HCC) Staging form: Prostate Cancer - Clinical stage from 03/03/2024: Stage IIA (T1c, N0, M0, PSA: Less than 10, Mabscott 7) - Signed by Ayan Jefferson Jr., MD on 03/03/2024 HPI: 74 year old male who presents with above diagnosis, for an opinion regarding the role of radiation therapy in the management of the patient's disease. Final recommendations will be communicated back to the requesting physician by way of the shared medical record, or letter to requesting physician via [place] mail. 74 year old man who had elevated PSA to 4.5 recently. It was 2.54 on 07/12/19 and 3.33 on 04/14/21, 3.18 on 03/17/22, 4 on 10/01/22, 4.5 on 08/20/23 and then 5.86 on 11/24/23. isoPSA was 6.3. He was seen by Dr. Jefferson and underwent TRUS and prostate biopsy on 02/29/24. A prostate volume of approximately 29.69 grams. The prostate was homogeneous. Biopsy results are as follows: FINAL DIAGNOSIS A. Prostate, left base, core biopsy: - Prostatic adenocarcinoma, Mabscott score 3+3=6 (Grade Group 1), involving 1 of 1 core (1 mm, 5%). B. Prostate, left mid, core biopsy: - Atypical small acinar proliferation adjacent to high-grade prostatic intraepithelial neoplasia (PIN), suspicious for adenocarcinoma but cannot exclude ?outpouchings? of high-grade PIN. C. Prostate, left apex, core biopsy: - Prostatic adenocarcinoma, Eugene score 3+3=6 (Grade Group 1), involving 1 of 1 core (4 mm, 30%). D. Prostate, left lateral base, core biopsy: - High-grade prostatic intraepithelial neoplasia (PIN). E. Prostate, left lateral mid, core biopsy: - Prostatic adenocarcinoma, Mabscott score 3+3=6 (Grade Group 1), involving 1 of 1 core (1 mm, 5%). F. Prostate, left lateral apex, core biopsy: - Benign prostatic tissue. G. Prostate, right base, core biopsy: - Benign prostatic tissue. H. Prostate, right mid, core biopsy: - Prostatic adenocarcinoma, Mabscott score 3+3=6 (Grade Group 1), involving 1 of 1 core (<1 mm, 5%). I. Prostate, right apex, core biopsy: - Benign prostatic tissue. J. Prostate, right lateral base, core biopsy: - Prostatic adenocarcinoma, Eugene score 3+4=7 (Grade Group 2), involving 1 of 1 core (discontinuous 8 mm, 45%). - Percentage of Mabscott pattern 4 = 40%. K. Prostate, right lateral mid, core biopsy: - Prostatic adenocarcinoma, Mabscott score 3+4=7 (Grade Group 2), involving 1 of 1 core (1 mm, 5%). - Percentage of Eugene pattern 4 = 30%. L. Prostate, right lateral apex, core biopsy: - Prostatic adenocarcinoma, Eugene score 3+3=6 (Grade Group 1), involving 1 of 1 core (discontinuous 13 mm, 70%). Prostate Cancer Biopsy Summary Number of cores examined: 12 Number of cores positive: 7 Highest Grade Group: 2 Highest % of core involvement: 70% (discontinuous 13 mm) Unfavorable histology: Present (Less than 10%) Borderline histology: Not applicable Large cribriform pattern 4: Absent Intraductal carcinoma: Absent ALLERGIES Allergen Reactions Rybelsus [Semagluti* Diarrhea Current Outpatient Medications on File Prior to Visit Medication Sig atorvastatin (LIPITOR) 80 mg tablet Take 1 tablet by mouth daily at bedtime. glimepiride (AMARYL) 4 mg tablet Take 1 tablet by mouth two times a day with meals. clopidogrel (PLAVIX) 75 mg tablet Take 1 tablet by mouth once daily. empagliflozin (JARDIANCE) 25 mg tablet Take 1 tablet by mouth daily with breakfast. lisinopril (ZESTRIL) 10 mg tablet Take 1 tablet by mouth once daily. metFORMIN (GLUCOPHAGE) 1,000 mg tablet Take 1 tablet by mouth two times a day with meals. metoprolol succinate ER (TOPROL XL) 25 mg 24 hr tablet Take 1 tablet by mouth once daily. SITagliptin phosphate (JANUVIA) 100 mg tablet Take 1 tablet by mouth once daily. blood sugar diagnostic (BLOOD GLUCOSE TEST) test strip Test blood sugar(s) 2 times daily. Dx: Other DM Code E11.42 Insulin: No albuterol HFA (PROVENTIL HFA, VENTOLIN HFA) 90 mcg/actuation inhaler Inhale 2 Puffs as instructed every 4 hours as needed. Lancets lancets Test blood sugar(s) 2 times daily. Dx: Other DM Code E11.42 Insulin: No Blood-Glucose Meter Test Blood Sugars 2 times daily Dx E11.42 Insulin: No flash glucose sensor (FREESTYLE ADRIAN 10 DAY SENSOR) kit 1 Each one time a week. Check blood sugar twice a day flash glucose scanning reader (FREESTYLE ADRIAN 10 DAY READER) 1 Device twice daily. Check blood sugar twice a day No current facility-administered medications on file prior to visit. PAST MEDICAL HISTORY Diagnosis Date Advance directive di (more content not included)...[facility] 03-17-2024 NoteHNO ID: [id number] Author: DEBORA MARTINEZ PA-C Service: ? Author Type: Physician Water Engineer Type: Progress Notes Filed: 03/17/2024 14:02 Note Text: Chief Complaint Patient presents with: Musculoskeletal Problem: Right hand 1st and 2nd digits, bilateral back of thighs go numb and burn HPI Victor Hugo Sheth is a 74 year old male who presents here today for Above Complaints.. Patient scheduled for routine check up but has multiple concerns. Hand numbness since dog bite 6 months ago B/l back of leg pain. States he has burning pain. If he doesn't sit down his legs will give out under him. States he has been having b/l shoulder pain for the past couple months. States he was using a weed eater and got his foot caught and ended up falling. Since then he has had pain. Needs referral for cardiology- would like to stay with [facility]. Past medical history, appointments, medications, allergies reviewed. Previous Medical History PAST MEDICAL HISTORY Diagnosis Date Advance directive discussed with patient 10/22/2021 Discussed 09/2021 Arthritis of both knees 12/12/2019 CAD (coronary artery disease), [place] coronary artery 05/14/[address] Khalil [facility] 05/14/[address] [facility] report from [facility], showed 85% stenosis in pLAD followed by 95% stenosis and 50-75% stenosis in mid LAD. Minimal disease in LCx and LCA. RCA with proximal and distal 25% stenosis. [facility] 05/17 s/p YESENIA x2 to LAD Plan: Dc home with follow-up Continue Plavix Carpal tunnel syndrome of right wrist 10/27/2013 EMG/NCT 10/27/13=mild right CTS Chronic systolic congestive heart failure (HCC) 03/13/2015 08/02/2018: Home BP Cuff Validated. Home BP: 118/71 Office BP: 116/72 Combined forms of age-related cataract of both eyes 06/15/2016 Combined forms of age-related cataract, bilateral 06/15/2016 Congestive heart failure (HCC) 03/13/2015 COPD with chronic bronchitis ([facility]) 03/13/2015 Corneal scar, right eye 07/18/2020 DDD (degenerative disc disease), cervical DDD (degenerative disc disease), lumbar 12/07/2019 Depression with anxiety Diabetic eye exam ([facility]) 05/15/2015 Last done 06/27/2018: no retinopathy. Dry eye syndrome of both eyes 07/18/2020 Elevated PSA 01/26/2019 Encounter for Medicare annual wellness exam 11/17/2017 Medicare Part B: 12/23/2016 last done: 09/10/2023 Does not want ELMO or colonoscopy Essential hypertension 09/19/2018 Gastroesophageal reflux disease without esophagitis 03/13/2015 History of compression fracture of spine 1971 high school football Iron deficiency anemia 09/26/2019 Iron deficiency anemia 09/26/2019 EGD and colonoscopy done 10/2019 Ischemic cardiomyopathy 05/25/2014 Leukocytosis 09/19/2018 Repeat 10/2018 ok Living will in place 10/22/2021 DPA: Jon (son) Medicare annual wellness visit, initial 11/17/2017 Medicare Part B: 12/23/2016 last done: 01/26/2019 Does not want ELMO or colonoscopy Mixed hyperlipidemia 09/13/2012 Neck pain 10/04/2013 Obesity, Class II, BMI 35-39.9 05/13/2017 Presence of drug coated stent in LAD coronary artery 05/25/2014 Smoker 03/13/2015 Started at 20 yo up to 2 PPD. as of 02/2015 only 5 cigs a day Tachycardia 10/30/2014 Thrombocytosis 09/19/2018 Repeat 10/2018 ok Type 2 diabetes mellitus with diabetic neuropathy, without long-term current use of insulin (HCC) 11/20/2015 Type 2 diabetes mellitus without retinopathy (HCC) 10/12/2014 Vitreous floaters of both eyes 10/12/2014 Previous Surgical History PAST SURGICAL HISTORY Procedure Laterality Date COLONOSCOPY FLX DX W/COLLJ SPEC WHEN PFRMD 11/16/2019 Colonoscopy ESOPHAGOGASTRODUODENOSCOPY TRANSORAL DIAGNOSTIC 11/16/2019 EGD FECAL OCCULT BLOOD TEST 03/08/2019 negative HEART CATHETERIZATION 05/14/14 triple vessel disease, YESENIA x 2 to the prox and mid LAD PAST SURGICAL HISTORY OF 1970 vertebral fracture in football? no repair. REPAIR FINGER TENDON left hand- cut tendons with chain saw TONSILLECTOMY AND ADENOIDECTOMY AGE 14/> 1982 TONSILLECTOMY HX Family History FAMILY HISTORY Problem Relation Age of Onset Emphysema Father Coronary Artery Disease Brother CABG Hypertension Brother Prostate Cancer Brother Patient Allergies ALLERGIES Allergen Reactions Rybelsus [Semagluti* Diarrhea Current Medications Current Outpatient Medications on File Prior to Visit Medication Sig atorvastatin (LIPITOR) 80 mg tablet Take 1 tablet by mouth daily at bedtime. glimepiride (AMARYL) 4 mg tablet Take 1 tablet by mouth two times a day with meals. clopidogrel (PLAVIX) 75 mg tablet Take 1 tablet by mouth once daily. empagliflozin (JARDIANCE) 25 mg tablet Take 1 tablet by mouth daily with breakfast. lisinopril (ZESTRIL) 10 mg tablet Take 1 tablet by mouth once daily. metFORMIN (GLUCOPHAGE) 1,000 mg tablet Take 1 tablet by mouth two times a day with meals. metoprolol succinate ER (TOPROL XL) 25 mg 24 hr tablet Take 1 tablet by mouth once daily. SITagliptin phosp (more content not included)...[facility] 03-17-2024 History of Present illness Narrative* Debora Martinez PA-C - 03/17/2024 1:24 PM EST Chief Complaint Patient presents with: Musculoskeletal Problem: Right hand 1st and 2nd digits, bilateral back of thighs go numb and burn HPI Victor Hugo Sheth is a 74 year old male who presents here today for Above Complaints.. Patient scheduled for routine check up but has multiple concerns. Hand numbness since dog bite 6 months ago B/l back of leg pain. States he has burning pain. If he doesn't sit down his legs will give out under him. States he has been having b/l shoulder pain for the past couple months. States he was using a weed eater and got his foot caught and ended up falling. Since then he has had pain. Needs referral for cardiology- would like to stay with [facility]. Past medical history, appointments, medications, allergies reviewed. Previous Medical History PAST MEDICAL HISTORY Diagnosis Date Advance directive discussed with patient 10/22/2021 Discussed 09/2021 Arthritis of both knees 12/12/2019 CAD (coronary artery disease), [place] coronary artery 05/14/[address] Khalil [facility] 05/14/[address] [facility] report from [facility], showed 85% stenosis in pLAD followed by 95% stenosis and 50-75% stenosis in mid LAD. Minimal disease in LCx and LCA. RCA withproximal and distal 25% stenosis. [facility] 05/17 s/p YESENIA x2 to LAD Plan: Dc home with follow-up Continue Plavix Carpal tunnel syndrome of right wrist 10/27/2013 EMG/NCT 10/27/13=mild right CTS Chronic systolic congestive heart failure (HCC) 03/13/2015 08/02/2018: Home BP Cuff Validated. Home BP: 118/71 Office BP: 116/72 Combined forms of age-related cataract of both eyes 06/15/2016 Combined forms of age-related cataract, bilateral 06/15/2016 Congestive heart failure (HCC) 03/13/2015 COPD with chronic bronchitis (HCC) 03/13/2015 Corneal scar, right eye 07/18/2020 DDD (degenerative disc disease), cervical DDD (degenerative disc disease), lumbar 12/07/2019 Depression with anxiety Diabetic eye exam ([facility]) 05/15/2015 Last done 06/27/2018: no retinopathy. Dry eye syndrome of both eyes 07/18/2020 Elevated PSA 01/26/2019 Encounter for Medicare annual wellness exam 11/17/2017 Medicare Part B: 12/23/2016 last done: 09/10/2023 Does not want ELMO or colonoscopy Essential hypertension 09/19/2018 Gastroesophageal reflux disease without esophagitis 03/13/2015 History of compression fracture of spine 1971 high school football Iron deficiency anemia 09/26/2019 Iron deficiency anemia 09/26/2019 EGD and colonoscopy done 10/2019 Ischemic cardiomyopathy 05/25/2014 Leukocytosis 09/19/2018 Repeat 10/2018 ok Living will in place 10/22/2021 DPA: Jon (son) Medicare annual wellness visit, initial 11/17/2017 Medicare Part B: 12/23/2016 last done: 01/26/2019 Does not want ELMO or colonoscopy Mixed hyperlipidemia 09/13/2012 Neck pain 10/04/2013 Obesity, Class II, BMI 35-39.9 05/13/2017 Presence of drug coated stent in LAD coronary artery 05/25/2014 Smoker 03/13/2015 Started at 20 yo up to 2 PPD. as of 02/2015 only 5 cigs a day Tachycardia 10/30/2014 Thrombocytosis 09/19/2018 Repeat 10/2018 ok Type 2 diabetes mellitus with diabetic neuropathy, without long-term current use of insulin (HCC) 11/20/2015 Type 2 diabetes mellitus without retinopathy (HCC) 10/12/2014 Vitreous floaters of both eyes 10/12/2014 Previous Surgical History PAST SURGICAL HISTORY Procedure Laterality Date COLONOSCOPY FLX DX W/COLLJ SPEC WHEN PFRMD 11/16/2019 Colonoscopy ESOPHAGOGASTRODUODENOSCOPY TRANSORAL DIAGNOSTIC 11/16/2019 EGD FECAL OCCULT BLOOD TEST 03/08/2019 negative HEART CATHETERIZATION 05/14/14 triple vessel disease, YESENIA x 2 to the prox and mid LAD PAST SURGICAL HISTORY OF 1971 vertebral fracture in football? no repair. REPAIR FINGER TENDON left hand- cut tendons with chain saw TONSILLECTOMY & ADENOIDECTOMY AGE 14/> 1982 TONSILLECTOMY HX Family History FAMILY HISTORY Problem Relation Age of Onset Emphysema Father Coronary Artery Disease Brother CABG Hypertension Brother Prostate Cancer Brother Patient Allergies ALLERGIES Allergen Reactions Rybelsus [Semagluti* Diarrhea Current Medications Current Outpatient Medications on File Prior to Visit Medication Sig atorvastatin (LIPITOR) 80 mg tablet Take 1 tablet by mouth daily at bedtime. glimepiride (AMARYL) 4 mg tablet Take 1 tablet by mouth two times a day with meals. clopidogrel (PLAVIX) 75 mg tablet Take 1 tablet by mouth once daily. empagliflozin (JARDIANCE) 25 mg tablet Take 1 tablet by mouth daily with breakfast. lisinopril (ZESTRIL) 10 mg tablet Take 1 tablet by mouth once daily. metFORMIN (GLUCOPHAGE) 1,000 mg tablet Take 1 tablet by mouth two times a day with meals. metoprolol succinate ER (TOPROL XL) 25 mg 24 hr tablet Take 1 tablet by mouth once daily. SITagliptin phosphate (JANUVIA) 100 mg tablet Take 1 tablet by mouth once daily. ferrous sulfate (SLOW FE) 137 mg (45 mg iron) TbER Take one tab every over day with your Vit C tab ascorbic acid, vitamin C, (VITAMIN C) 500 mg tablet Take one every other day with your iron tab. blood sugar diagnostic (BLOOD GLUCOSE TEST) test strip Test blood sugar(s) 2 times daily. Dx: OtherDM Code E11.42 Insulin: No albuterol HFA (PROVENTIL HFA, VENTOLIN HFA) 90 mcg/actuation inhaler Inhale 2 Puffs as instructed every 4 hours as needed. Lancets lancets Test blood sugar(s) 2 times daily. Dx: Other DM Code E11.42 Insulin: No Blood-Glucose Meter Test Blood Sugars 2 times daily Dx E11.42 Insulin: No flash glucose sensor (FREESTYLE ADRIAN 10 DAY SENSOR) kit 1 Each one time a week. Check blood sugar twice a day flash glucose scanning reader (FREESTYLE ADRIAN 10 DAY READER) 1 Device twice daily. Check blood sugar twice a day No current facility-administered medications on file prior to visit. Social History Social History Tobacco Use Smoking status: Every Day Current packs/day: 0.30 Average packs/day: 0.3 packs/day for 40.0 years (12.0 ttl pk-yrs) Types: Cigarettes Passive exposure: Never Smokeless tobacco: Never Tobacco comments: started smoking 20yo, usually 4 cigarettes per day Vaping Use Vaping status: Never Used Substance Use Topics Alcohol use: Yes Comment: few drinks per year Drug use: Never Review of Symptoms REVIEW OF SYSTEMS See hpi EXAM: BP 130/70 (BP Site: Left Arm, BP Position: Sitting, BP Cuff Size: Large Adult) Pulse 120 Temp 37 C (98.6 F) Resp 18 SpO2 97% General Appearance: Well appearing, alert, in no acute distress, well-hydrated, well nourished. andOverweight. Musculoskeletal: Wrist exam: FROM. Neg tinnels. Decreased sensation to pinprick on digits 1-3. Pulse wnl. Shoulder exam: FROM with discomfort. +lynch on Left. Empty can positive for pain b/l. Speeds testnegative. . Back exam: tender to palp of R SI joint. SLR negative. NVI. Health Maintenance List Shingrix Vaccine(1 of 2) Never done DTaP,Tdap,Td Vaccine(1 - Tdap) due on 08/24/2012 Dilated Retinal Exam due on 10/15/2022 BP Controlled (<130/80) due on 11/05/2023 Advance Directive Discussion due on 02/23/2024 Influenza Vaccine(1) due on 08/21/2024 RSV Vaccine(1 - Risk 60-74 years 1-dose series) due on 09/09/2024 Colorectal Cancer Screening due on 07/04/2024 Urine Albumin:Creatinine Ratio due on 08/19/2024 HbA1C due on 09/07/2024 Diabetic Foot Exam due on 09/09/2024 LDL Cholesterol due on 03/10/2025 Annual PCP Team Chronic Disease Visit due on 03/17/2025 Abdominal Aortic Aneurysm Screening Completed Hepatitis C Screening Completed Pneumococcal Vaccine: 50+ Completed HPV Vaccine Aged Out Alpha-1 Antitrypsin Deficiency Screening Discontinued Spirometry Discontinued Covid-19 Vaccine Discontinued Data reviewed ASSESSMENT/PLAN: 1. Injury of right hand, sequela - ICD9: 908.9, ICD10: S69.91XS (primary diagnosis) Will set patient up with hand specialist at [facility]. - CONSULT TO PLASTIC SURGERY 2. Numbness and tingling in right hand - ICD9: 782.0, ICD10: R20.0, R20.2 As above - CONSULT TO PLASTIC SURGERY 3. Coronary artery disease involving [place] coronary artery of [place] heart without angina pectoris- ICD9: 414.01, ICD10: I25.10 Consult placed - CONSULT TO CARDIOLOGY 4. Iron deficiency anemia, unspecified iron deficiency anemia type - ICD9: 280.9, ICD10: D50.9 Iron levels high. Patient only taking iron every other day. Causing constipation. Will have him stop iron supplement at this time Repeat labs in 2 months - IRON AND TIBC - COMPLETE BLOOD COUNT AND DIFFERENTIAL 5. Lumbar back pain with radiculopathy affecting lower extremity - ICD9: 724.4, ICD10: M54.16 Chronic Discussed xray and MRI. Patient declines at this time Would like to try inversion table again first 6. Chronic pain of both shoulders - ICD9: 719.41, 338.29, ICD10: M25.511, G89.29, M25.512 Discussed Physical Therapy and possible xray/ortho consult Patient declines currently. Will let us know if changes his mind. Did not have time to review chronic conditions. Will have patient schedule a 2 week follow up. He prefers later appointments.set up with Dr. Hartmann. Debora Martinez PA-C I spent a total of 35 minutes on the date of the service which included preparing to see the patient, [id number] patient care, completing clinical documentation, obtaining and/or reviewing separately obtained history, performing a medically appropriate examination, counseling and educating the pat ient/family/caregiver, ordering medications, tests, or procedures, and communicating results to thepatient/family/caregiver. [facility] NoteHNO ID: [id number] Author: AYAN JEFFERSON JR, MD Service: ? Author Type: Physician Type: Progress Notes Filed: 03/14/2024 10:14 Note Text: ESTABLISHED PATIENT OFFICE VISIT HPI Victor Hugo Sheth is a 74 year old male who presents sp trus bx Prostate Cancer Consultation Note Mr Victor Hugo Sheth was diagnosed with Clinical Stage(1c) Eugene's score 7 (3+4) adenocarcinoma of the prostate with an associated PSA of 5 and an estimated prostatic volume of 30. He had 7 of 12 cores positive with disease identified in the 7 portion(s) of the prostate. The patient presents alone and I have discussed his apparent localized prostate cancer at length. Specifically we discussed the Eugene score, number and percent of cores involved with disease, the nathaly tables risk stratification criteria which are based upon the Eugene score, PSA, and clinical T stage. Based upon the clinical features the patient falls into moderate risk category for 10 year biochemical disease free survival regardless of which therapeutic modality he chooses. He understands that there is a small, but real, chance of occult metastatic disease and the logic of when metastatic workup is appropriate. We discussed various options for management of his disease including watchful waiting, active surveillance, radiation modality and surgical extirpation. The options of watchful waiting or active surveillence were gone over and what these would entail, with selective delayed intervention, hormonal therapy in its various forms. The protocol for periodic PSA tests and repeating his transrectal prostate ultrasound, without or with prostate biopsy was covered. With respect to surgical intervention we compared and contrasted open, laparoscopic and robotic prostatectomy with or without bilateral pelvic lymphadenectomy. We compared these with respect to cancer control, urinary control, and erectile dysfunction. I explained that any patient undergoing treatment for prostate cancer may need additional therapy. The possibility of severe or total loss of urinary control, possibly needed surgery to implant an artificial urinary sphincter is possible after prostate cancer surgery. The possibility of loss of erections, and the possible treatment options was discussed. The other potential downside, including but not limited to urethral stricture, bladder neck contracture. I explained to him that robotic prostatectomy is a major surgical procedure and has possible major complications including, but not limited to bleeding requiring transfusion, rectal injury requiring a temporary colostomy, damage to abdominal structure, infection, myocardial infarction, stroke, deep vein thrombosis/ pulmonary embolism, or open conversion. We discussed the procedure related morbidity, hospitalization, and convalescence period. We have reviewed the recent data, which would show that at least one out of ten patients undergoing radical prostatectomy will have at least one complication whether minor or major, and this could be as high as 25% (one in four). We have discussed that with surgical intervention. We also discussed radiation therapy; external beam, and out-patient brachytherapy as well as the attendant procedure related morbidity as it relates to the low but known risk of group home urinary frequency, urgency, urgency with bowel movements and risk of urethral radiation injury. We also discussed time commitment for the external beam therapy being once a day, five days a week for 5-7 weeks during which most people can continue normal daily activities. I described the likelihood of flare up of hemorrhoids, and mild decrease in physical stamina during the later portion of the treatments. We discussed the time frame for PSA response that would indicate efficacy of the radiation therapy. A referral to radiation oncology was offered. Additionally, we discussed cryosurgical ablation of the prostate (with without nerve sparing). Specifically, we discussed the procedure related morbidity, risk of rectal injury, urinary incontinence, post cryo urinary frequency and urgency, and risk of impotence. We also discussed the outpatient nature of the procedure, minimal need for pain medication and the need for a urinary catheter for 2-weeks following the procedure and the time frame of PSA response that would reflect the efficacy of the cryosurgical procedure and the follow up that would be involved. Finally, with respect to the cryosurgical procedure we discussed that to date we do not have group home (10-year) outcomes data, however, the published data do compare favorably to other treatment modalities and there have been no data that indicate any superiority of one prostate cancer treatment modality over another. I answered all of his questions today and encouraged him to call me if any other questions come to mind. He expressed understanding today's conv (more content not included)...[facility]01-21-2025 History of Present illness Narrative* Ayan Jefferson Jr., MD - 03/14/2024 10:02 AM EST ESTABLISHED PATIENT OFFICE VISIT HPI Victor Hugo Sheth is a 74 year old male who presents sp trus bx Prostate Cancer Consultation Note Mr Victor Hugo Sheth was diagnosed with Clinical Stage(1c) Mabscott's score 7 (3+4) adenocarcinoma ofthe prostate with an associated PSA of 5 and an estimated prostatic volume of 30. He had 7 of 12 cores positive with disease identified in the 7 portion(s) of the prostate. The patient presents alone and I have discussed his apparent localized prostate cancer at length. Specifically we discussed the Mabscott score, number and percent of cores involved with disease, thepartin tables risk stratification criteria which are based upon the Eugene score, PSA, and clinical T stage. Based upon the clinical features the patient falls into moderate risk category for 10 year biochemical disease free survival regardless of which therapeutic modality he chooses. He understands that there is a small, but real, chance of occult metastatic disease and the logic of when metastatic workup is appropriate. We discussed various options for management of his disease including watchful waiting, active surveillance, radiation modality and surgical extirpation. The options of watchful waiting or active surveillence were gone over and what these would entail, with selective delayed intervention, hormonal therapy in its various forms. The protocol for periodic PSA tests and repeating his transrectal prostate ultrasound, without or with prostate biopsy was covered. With respect to surgical intervention we compared and contrasted open, laparoscopic and robotic prostatectomy with or without bilateral pelvic lymphadenectomy. We compared these with respect to cancer control, urinary control, and erectile dysfunction. I explained that any patient undergoing treatment for prostate cancer may need additional therapy. The possibility of severe or total loss of urinary control, possibly needed surgery to implant an artificial urinary sphincter is possible after prostate cancer surgery. The possibility of loss of erections, and the possible treatment options was d iscussed. The other potential downside, including but not limited to urethral stricture, bladder neck contracture. I explained to him that robotic prostatectomy is a major surgical procedure and has possible major complications including, but not limited to bleeding requiring transfusion, rectal injury requiring a temporary colostomy, damage to abdominal structure, infection, myocardial infarction, stroke, deepvein thrombosis/ pulmonary embolism, or open conversion. We discussed the procedure related morbidity, hospitalization, and convalescence period. We have reviewed the recent data, which would show that at least one out of ten patients undergoing radical prostatectomy will have at least one complication whether minor or major, and this could be as high as25% (one in four). We have discussed that with surgical intervention. We also discussed radiation therapy; external beam, and out-patient brachytherapy as well as the attendant procedure related morbidity as it relates to the low but known risk of group home urinary frequency, urgency, urgency with bowel movements and risk of urethral radiation injury. We also discussed time commitment for the external beam therapy being once a day, five days a week for 5-7 weeks during which most people can continue normal daily activities. I described the likelihood of flare up of hemorrhoids, and mild decrease in physical stamina during the later portion of the treatments. Wediscussed the time frame for PSA response that would indicate efficacy of the radiation therapy. A referral to radiation oncology was offered. Additionally, we discussed cryosurgical ablation of the prostate (with without nerve sparing). Specifically, we discussed the procedure related morbidity, risk of rectal injury, urinary incontinence,post cryo urinary frequency and urgency, and risk of impotence. We also discussed the outpatient nature of the procedure, minimal need for pain medication and the need for a urinary catheter for 2-weeks following the procedure and the time frame of PSA response that would reflect the efficacy of the cryosurgical procedure and the follow up that would be involved. Finally, with respect to the cryosurgical procedure we discussed that to date we do not have founder ceo & president (10-year) outcomes data, vandana cochran, the published data do compare favorably to other treatment modalities and there have been no data that indicate any superiority of one prostate cancer treatment modality over another. I answered all of his questions today and encouraged him to call me if any other questions come to mind. He expressed understanding today's conversation. Total [id number] discussion >30 min; and >50% of that time was spent in counseling. No ab surgeries Heart dz - would need to see cardio No blood thinners Non-NSS LAB: Creatinine Date Value Ref Range Status 08/20/2023 0.91 0.73 - 1.22 mg/dL Final PSA (ng/mL) Date Value 08/20/2023 4.50 10/01/2022 4.00 03/17/2022 3.18 10/09/2021 3.35 04/14/2021 3.33 12/11/2020 3.04 07/12/2019 2.54 03/08/2019 2.34 01/18/2019 3.23 11/25/2017 1.96 11/12/2016 1.76 11/15/2015 1.86 Glucose, Urine Date Value 08/20/2023 3+ 12/11/2020 3+ mg/dL Bilirubin, Urine (no units) Date Value 08/20/2023 Negative 12/11/2020 Negative Ketones, Urine (no units) Date Value 08/20/2023 Negative 12/11/2020 Negative Specific [place], Ur (no units) Date Value 08/20/2023 1.032 12/11/2020 1.023 Hemoglobin/Blood,Ur Date Value 08/20/2023 Negative 12/11/2020 Negative pH, Urine (no units) Date Value 08/20/2023 6.0 12/11/2020 6.0 Protein, Urine (no units) Date Value 08/20/2023 Negative 12/11/2020 Negative Nitrites (no units) Date Value 08/20/2023 Negative 12/11/2020 Negative WBC, Urine Date Value 08/20/2023 0-5 /HPF 12/11/2020 0-5 /HPF MEDICATIONS: atorvastatin (LIPITOR) 80 mg tablet Take 1 tablet by mouth daily at bedtime. glimepiride (AMARYL) 4 mg tablet Take 1 tablet by mouth two times a day with meals. clopidogrel (PLAVIX) 75 mg tablet Take 1 tablet by mouth once daily. empagliflozin (JARDIANCE) 25 mg tablet Take 1 tablet by mouth daily with breakfast. lisinopril (ZESTRIL) 10 mg tablet Take 1 tablet by mouth once daily. metFORMIN (GLUCOPHAGE) 1,000 mg tablet Take 1 tablet by mouth two times a day with meals. metoprolol succinate ER (TOPROL XL) 25 mg 24 hr tablet Take 1 tablet by mouth once daily. SITagliptin phosphate (JANUVIA) 100 mg tablet Take 1 tablet by mouth once daily. ferrous sulfate (SLOW FE) 137 mg (45 mg iron) TbER Take one tab every over day with your Vit C tab ascorbic acid, vitamin C, (VITAMIN C) 500 mg tablet Take one every other day with your iron tab. blood sugar diagnostic (BLOOD GLUCOSE TEST) test strip Test blood sugar(s) 2 times daily. Dx: OtherDM Code E11.42 Insulin: No albuterol HFA (PROVENTIL HFA, VENTOLIN HFA) 90 mcg/actuation inhaler Inhale 2 Puffs as instructed every 4 hours as needed. Lancets lancets Test blood sugar(s) 2 times daily. Dx: Other DM Code E11.42 Insulin: No Blood-Glucose Meter Test Blood Sugars 2 times daily Dx E11.42 Insulin: No flash glucose sensor (FREESTYLE ADRIAN 10 DAY SENSOR) kit 1 Each one time a week. Check blood sugar twice a day flash glucose scanning reader (FREESTYLE ADRIAN 10 DAY READER) 1 Device twice daily. Check blood sugar twice a day REVIEW OF SYSTEMS Review of Systems Constitutional: Negative. Respiratory: Negative. Cardiovascular: Negative. Gastrointestinal: Negative. Genitourinary: Negative. Penile pain: sp trus bx. Skin: Negative. Neurological: Negative. Psychiatric/Behavioral: Negative. Self-injury: not examined. HISTORIES PAST MEDICAL HISTORY Diagnosis Date Advance directive discussed with patient 10/22/2021 Discussed 09/2021 Arthritis of both knees 12/12/2019 CAD (coronary artery disease), [place] coronary artery 05/14/[address] Khalil [facility] 05/14/[address] [facility] report from [facility], showed 85% stenosis in pLAD followed by 95% stenosis and 50-75% stenosis in mid LAD. Minimal disease in LCx and LCA. RCA withproximal and distal 25% stenosis. [facility] 05/17 s/p YESENIA x2 to LAD Plan: Dc home with follow-up Continue Plavix Carpal tunnel syndrome of right wrist 10/27/2013 EMG/NCT 10/27/13=mild right CTS Chronic systolic congestive heart failure (HCC) 03/13/2015 08/02/2018: Home BP Cuff Validated. Home BP: 118/71 Office BP: 116/72 Combined forms of age-related cataract of both eyes 06/15/2016 Combined forms of age-related cataract, bilateral 06/15/2016 Congestive heart failure (HCC) 03/13/2015 COPD with chronic bronchitis ([facility]) 03/13/2015 Corneal scar, right eye 07/18/2020 DDD (degenerative disc disease), cervical DDD (degenerative disc disease), lumbar 12/07/2019 Depression with anxiety Diabetic eye exam ([facility]) 05/15/2015 Last done 06/27/2018: no retinopathy. Dry eye syndrome of both eyes 07/18/2020 Elevated PSA 01/26/2019 Encounter for Medicare annual wellness exam 11/17/2017 Medicare Part B: 12/23/2016 last done: 09/10/2023 Does not want ELMO or colonoscopy Essential hypertension 09/19/2018 Gastroesophageal reflux disease without esophagitis 03/13/2015 History of compression fracture of spine 1971 high school football Iron deficiency anemia 09/26/2019 Iron deficiency anemia 09/26/2019 EGD and colonoscopy done 10/2019 Ischemic cardiomyopathy 05/25/2014 Leukocytosis 09/19/2018 Repeat 10/2018 ok Living will in place 10/22/2021 DPA: Jon (son) Medicare annual wellness visit, initial 11/17/2017 Medicare Part B: 12/23/2016 last done: 01/26/2019 Does not want ELMO or colonoscopy Mixed hyperlipidemia 09/13/2012 Neck pain 10/04/2013 Obesity, Class II, BMI 35-39.9 05/13/2017 Presence of drug coated stent in LAD coronary artery 05/25/2014 Smoker 03/13/2015 Started at 20 yo up to 2 PPD. as of 02/2015 only 5 cigs a day Tachycardia 10/30/2014 Thrombocytosis 09/19/2018 Repeat 10/2018 ok Type 2 diabetes mellitus with diabetic neuropathy, without long-term current use of insulin ([facility]) 11/20/2015 Type 2 diabetes mellitus without retinopathy ([facility]) 10/12/2014 Vitreous floaters of both eyes 10/12/2014 FAMILY HISTORY Problem Relation Age of Onset Emphysema Father Coronary Artery Disease Brother CABG Hypertension Brother Prostate Cancer Brother SOCIAL HISTORY Social History Tobacco Use Smoking status: Every Day Current packs/day: 0.30 Average packs/day: 0.3 packs/day for 40.0 years (12.0 ttl pk-yrs) Types: Cigarettes Passive exposure: Never Smokeless tobacco: Never Tobacco comments: started smoking 20yo, usually 4 cigarettes per day Vaping Use Vaping status: Never Used Substance Use Topics Alcohol use: Yes Comment: few drinks per year Drug use: Never PHYSICAL EXAMINATION General appearance: Well appearing, alert, in no acute distress, and well- hydrated, well nourished Skin: Skin color, texture, turgor normal, no suspicious rashes or lesions Respiratory:+ effort Cardiovascular: Not examined GI: Normal abdominal exam, Abdomen soft, non-tender. No masses, organomegaly Musculoskeletal: Negative Neuro: Negative Genitourinary: not examined Impression: (C61) Prostate cancer (HCC) (primary encounter diagnosis) Plan: See rad/onc Will call if would like to schedule surgery - robotic assisted laparoscopic radical prostatectomy with bilateral pelvic lymph node dissection For now set for 6 months Psa prior Ayan Jefferson Jr, MD 03/14/2024 [facility] History of Present illness Narrative* Melissa Trivedi MA - 02/29/2024 1:44 PM EST The patient was seen in the office today for follow-up evaluation and transrectal ultrasound guidedprostate biopsy for a history of elevated psa (ICD- 10 code R97.2). The patient has a prior urologichistory of elevated PSA. He is doing well with no new significant complaints. Examination: unchanged The remainder of the examination is unremarkable. All recent laboratory and test results were reviewed with the patient. PSA (ng/mL) Date Value 08/20/2023 4.50 10/01/2022 4.00 03/17/2022 3.18 10/09/2021 3.35 04/14/2021 3.33 12/11/2020 3.04 07/12/2019 2.54 03/08/2019 2.34 Creatinine Date Value Ref Range Status 08/20/2023 0.91 0.73 - 1.22 mg/dL Final A urinalysis was performed revealing: no evidence of infection or hematuria. Urinalysis Specific [place], Ur Date Value Ref Range Status 08/20/2023 1.032 (H) 1.005 - 1.030 Final Glucose, Urine Date Value Ref Range Status 08/20/2023 3+ (A) Negative Final Bilirubin, Urine Date Value Ref Range Status 08/20/2023 Negative Negative Final Ketones, Urine Date Value Ref Range Status 08/20/2023 Negative Negative Final Hemoglobin/Blood,Ur Date Value Ref Range Status 08/20/2023 Negative Negative Final Protein, Urine Date Value Ref Range Status 08/20/2023 Negative Negative Final WBC, Urine Date Value Ref Range Status 08/20/2023 0-5 /HPF 0-5 /HPF Final UNIVERSAL PROTOCOL / SAFETY CHECKLIST Procedure to be Performed: TRANSRECTAL ULTRASOUND GUIDED BIOPSY OF THE PROSTATE Sign In: A Moment of CARE was completed. Personnel directly involved with the procedure wore the appropriate PPE (Personal Protective Equipment). No special equipment needed. Patient/Surrogate Stated/Verified: PATIENT VERIFIED(optional for EMERGENT procedures): Patient name, Date of , Relevant allergies, and The intended procedure Time Out Communication: Intended patient and procedure match the source documents. Consent documented and matches the intended procedure. No relevant labs, photos, and/or imaging studies were applicable for review. No correct side/site applicable for marking and visibility. Medications required for procedure verified. No fire risk assessment and interventions applicable. No implant(s) inserted. Sign Out: SIGN OUT (optional for EMERGENT procedures): All specimen containers correctly labeled. All instruments, equipment, possible retained foreign bodies accounted for. Post-procedure follow-up management communicated and Plan of Care Visit completed when applicable. Melissa Trivedi MA TRANS RECTAL ULTRASOUND PROSTATE BIOPSY The patient confirmed that he had discontinued all aspirin products, blood thinners and NSAIDS as directed. The prescribed prep and prophylactic antibiotics were taken as directed. He took Levaquin 750 mg orally and was given intramuscular gentamicin 160 mg. The benefits and risks of the transrectal ultrasound guided prostate biopsy procedure were discussed with the patient, especially the potential complications of prostate biopsy including, but not limited to: pain, infection, bleeding, hematochezia, hematuria, worsening of voiding symptoms, urinary r etention, sepsis and possible need for additional biopsies. All questions were answered to the patient's satisfaction. The written consent will be scanned into to the patient's electronic medical record. Procedure: The patient was placed on the procedure table in the lateral recumbent position. The well-lubricated transrectal ultrasound probe was carefully and atraumatically inserted into the rectum and the prostate was visualized. A prostate volume of approximately 29.69 grams, length 41.30 mm, wid th 45.41 mm. The prostate was homogeneous. A periprostatic block was then given in the standard fashion, using 1% lidocaine with a spinal needle under directed transrectal ultrasound guidance. Once adequate anesthesia was achieved, 12 needle biopsy cores were taken from the left and right lobes of the prostate. Specimens were sent to pathology for histologic evaluation. The patient tolerated the procedure well without complications. Assessment: elevated psa (ICD-10 code R97.2) Plan: The patient was given standard post-procedure instructions and advised to stay well hydrated. The patient has been instructed to return to the office in approximately one week in order to review the biopsy results. That appointment will be scheduled by the patient, today. Based on these results, further management will be instituted. documented in [facility] NoteHNO ID: [id number] Author: MELISSA TRIVEDI MA Service: ? Author Type: Dairy Inspector Type: Progress Notes Filed: 02/29/2024 13:47 Note Text: The patient was seen in the office today for follow-up evaluation and transrectal ultrasound guided prostate biopsy for a history of elevated psa (ICD-10 code R97.2). The patient has a prior urologic history of elevated PSA. He is doing well with no new significant complaints. Examination: unchanged The remainder of the examination is unremarkable. All recent laboratory and test results were reviewed with the patient. PSA (ng/mL) Date Value 08/20/2023 4.50 10/01/2022 4.00 03/17/2022 3.18 10/09/2021 3.35 04/14/2021 3.33 12/11/2020 3.04 07/12/2019 2.54 03/08/2019 2.34 Creatinine Date Value Ref Range Status 08/20/2023 0.91 0.73 - 1.22 mg/dL Final A urinalysis was performed revealing: no evidence of infection or hematuria. Urinalysis Specific [place], Ur Date Value Ref Range Status 08/20/2023 1.032 (H) 1.005 - 1.030 Final Glucose, Urine Date Value Ref Range Status 08/20/2023 3+ (A) Negative Final Bilirubin, Urine Date Value Ref Range Status 08/20/2023 Negative Negative Final Ketones, Urine Date Value Ref Range Status 08/20/2023 Negative Negative Final Hemoglobin/Blood,Ur Date Value Ref Range Status 08/20/2023 Negative Negative Final Protein, Urine Date Value Ref Range Status 08/20/2023 Negative Negative Final WBC, Urine Date Value Ref Range Status 08/20/2023 0-5 /HPF 0-5 /HPF Final UNIVERSAL PROTOCOL / SAFETY CHECKLIST Procedure to be Performed: TRANSRECTAL ULTRASOUND GUIDED BIOPSY OF THE PROSTATE Sign In: A Moment of CARE was completed. Personnel directly involved with the procedure wore the appropriate PPE (Personal Protective Equipment). No special equipment needed. Patient/Surrogate Stated/Verified: PATIENT VERIFIED(optional for EMERGENT procedures): Patient name, Date of , Relevant allergies, and The intended procedure Time Out Communication: Intended patient and procedure match the source documents. Consent documented and matches the intended procedure. No relevant labs, photos, and/or imaging studies were applicable for review. No correct side/site applicable for marking and visibility. Medications required for procedure verified. No fire risk assessment and interventions applicable. No implant(s) inserted. Sign Out: SIGN OUT (optional for EMERGENT procedures): All specimen containers correctly labeled. All instruments, equipment, possible retained foreign bodies accounted for. Post-procedure follow-up management communicated and Plan of Care Visit completed when applicable. Melissa Trivedi MA TRANS RECTAL ULTRASOUND PROSTATE BIOPSY The patient confirmed that he had discontinued all aspirin products, blood thinners and NSAIDS as directed. The prescribed prep and prophylactic antibiotics were taken as directed. He took Levaquin 750 mg orally and was given intramuscular gentamicin 160 mg. The benefits and risks of the transrectal ultrasound guided prostate biopsy procedure were discussed with the patient, especially the potential complications of prostate biopsy including, but not limited to: pain, infection, bleeding, hematochezia, hematuria, worsening of voiding symptoms, urinary retention, sepsis and possible need for additional biopsies. All questions were answered to the patient's satisfaction. The written consent will be scanned into to the patient's electronic medical record. Procedure: The patient was placed on the procedure table in the lateral recumbent position. The well-lubricated transrectal ultrasound probe was carefully and atraumatically inserted into the rectum and the prostate was visualized. A prostate volume of approximately 29.69 grams, length 41.30 mm, width 45.41 mm. The prostate was homogeneous. A periprostatic block was then given in the standard fashion, using 1% lidocaine with a spinal needle under directed transrectal ultrasound guidance. Once adequate anesthesia was achieved, 12 needle biopsy cores were taken from the left and right lobes of the prostate. Specimens were sent to pathology for histologic evaluation. The patient tolerated the procedure well without complications. Assessment: elevated psa (ICD-10 code R97.2) Plan: The patient was given standard post-procedure instructions and advised to stay well hydrated. The patient has been instructed to return to the office in approximately one week in order to review the biopsy results. That appointment will be scheduled by the patient, today. Based on these results, further management will be instituted.[facility]01-07-2025 NoteHNO ID: [id number] Author: AYAN JEFFERSON JR, MD Service: ? Author Type: Physician Type: Procedures Filed: 02/29/2024 13:13 Note Text: PROSTATE BIOPSY WITH ULTRASOUND GUIDANCE Victor Hugo Sheth a 74 year old. History and Physical reviewed and is unchanged. . UNIVERSAL PROTOCOL / SAFETY CHECKLIST Procedure to be Performed: trus bx Sign In: A Moment of CARE was completed. Personnel directly involved with the procedure wore the appropriate PPE (Personal Protective Equipment). Patient/Surrogate Stated/Verified: PATIENT VERIFIED(optional for EMERGENT procedures): Patient name, Date of , Relevant allergies, and The intended procedure Time Out Communication: Intended patient and procedure match the source documents. Consent documented and matches the intended procedure. Sign Out: SIGN OUT (optional for EMERGENT procedures): All specimen containers correctly labeled. Ayan Jefferson Jr, MD Fire risk assessment done Pre procedure dx: elevated psa Post procedure dx: same Informed Consent Discussed: Yes. Risks, benefits, alternatives and personnel discussed with patient who consents to proceed. Discussed RBAPC. Audible time out was performed. Is the patient having any pain? No 0 on a scale of 0 to 10 PSA (ng/mL) Date Value 08/20/2023 4.50 04/14/2021 3.33 PALPABLE NODULE: No Prostate biopsies taken from the site below using ultrasound guidance 1.) RIGHT BASE: 2 2.) RIGHT MID: 2 3.) RIGHT APEX: 2 4.) LEFT BASE: 2 5.) LEFT MID: 2 6.) LEFT APEX: 2 ALLERGIES Allergen Reactions Rybelsus [Semagluti* Diarrhea MEDICATIONS: 10 ml 1% Plain Xylocaine lindsay prostatic nerve block given: Yes PROSTATE ULTRASOUND The prostate sonogram was obtained via transrectal approach. The gland is not enlarged, measuring 30cc. There is a homogeneous echo pattern throughout the prostate gland. Echogenic foci within the gland consistant with clacifications were noted. There is no focal lesion within the pereferal zone of the prostate gland. Ayan Jefferson Jr, [facility]01-07-2025 Procedure note* Ayan Jefferson Jr., MD - 02/29/2024 1:12 PM EST PROSTATE BIOPSY WITH ULTRASOUND GUIDANCE Victor Hugo Sheth a 74 year old. History and Physical reviewed and is unchanged. . UNIVERSAL PROTOCOL / SAFETY CHECKLIST Procedure to be Performed: trus bx Sign In: A Moment of CARE was completed. Personnel directly involved with the procedure wore the appropriate PPE (Personal Protective Equipment). Patient/Surrogate Stated/Verified: PATIENT VERIFIED(optional for EMERGENT procedures): Patient name, Date of , Relevant allergies, and The intended procedure Time Out Communication: Intended patient and procedure match the source documents. Consent documented and matches the intended procedure. Sign Out: SIGN OUT (optional for EMERGENT procedures): All specimen containers correctly labeled. Ayan Jefferson Jr, MD Fire risk assessment done Pre procedure dx: elevated psa Post procedure dx: same Informed Consent Discussed: Yes. Risks, benefits, alternatives and personnel discussed with patientwho consents to proceed. Discussed RBAPC. Audible time out was performed. Is the patient having any pain? No 0 on a scale of 0 to 10 PSA (ng/mL) Date Value 08/20/2023 4.50 04/14/2021 3.33 PALPABLE NODULE: No Prostate biopsies taken from the site below using ultrasound guidance 1.) RIGHT BASE: 2 2.) RIGHT MID: 2 3.) RIGHT APEX: 2 4.) LEFT BASE: 2 5.) LEFT MID: 2 6.) LEFT APEX: 2 ALLERGIES Allergen Reactions Rybelsus [Semagluti* Diarrhea MEDICATIONS: 10 ml 1% Plain Xylocaine lindsay prostatic nerve block given: Yes PROSTATE ULTRASOUND The prostate sonogram was obtained via transrectal approach. The gland is not enlarged, measuring 30cc. There is a homogeneous echo pattern throughout the prostate gland. Echogenic foci within the gland consistant with clacifications were noted. There is no focal lesion within the pereferal zone of the prostate gland. Ayan Jefferson Jr, MD [facility]01-07[facility] Procedure note* Ayan Jefferson Jr., MD - 02/29/2024 1:12 PM EST PROSTATE BIOPSY WITH ULTRASOUND GUIDANCE Victor Hugo Sheth a 74 year old. History and Physical reviewed and is unchanged. . UNIVERSAL PROTOCOL / SAFETY CHECKLIST Procedure to be Performed: trus bx Sign In: A Moment of CARE was completed. Personnel directly involved with the procedure wore the appropriate PPE (Personal Protective Equipment). Patient/Surrogate Stated/Verified: PATIENT VERIFIED(optional for EMERGENT procedures): Patient name, Date of , Relevant allergies, and The intended procedure Time Out Communication: Intended patient and procedure match the source documents. Consent documented and matches the intended procedure. Sign Out: SIGN OUT (optional for EMERGENT procedures): All specimen containers correctly labeled. Ayan Jefferson Jr, MD Fire risk assessment done Pre procedure dx: elevated psa Post procedure dx: same Informed Consent Discussed: Yes. Risks, benefits, alternatives and personnel discussed with patientwho consents to proceed. Discussed RBAPC. Audible time out was performed. Is the patient having any pain? No 0 on a scale of 0 to 10 PSA (ng/mL) Date Value 08/20/2023 4.50 04/14/2021 3.33 PALPABLE NODULE: No Prostate biopsies taken from the site below using ultrasound guidance 1.) RIGHT BASE: 2 2.) RIGHT MID: 2 3.) RIGHT APEX: 2 4.) LEFT BASE: 2 5.) LEFT MID: 2 6.) LEFT APEX: 2 ALLERGIES Allergen Reactions Rybelsus [Semagluti* Diarrhea MEDICATIONS: 10 ml 1% Plain Xylocaine lindsay prostatic nerve block given: Yes PROSTATE ULTRASOUND The prostate sonogram was obtained via transrectal approach. The gland is not enlarged, measuring 30cc. There is a homogeneous echo pattern throughout the prostate gland. Echogenic foci within the gland consistant with clacifications were noted. There is no focal lesion within the pereferal zone of the prostate gland. Ayan Jefferson Jr, MD documented [facility] Telephone encounter Note * Telephone Encounter - Henry Kaufman LPN - 02/01/2024 11:03 AM EST Prescription Refill Information The patient has been identified by name and date of : Yes Caregiver verified no other encounters exist for this prescription request: Yes Caregiver confirmed with patient/requestor that no other refills are due, in the near future, with this provider at this time: Yes The last office visit in the department: 09/10/23 Does the patient have a future office visit with this provider/department: Yes Requested Prescriptions Pending Prescriptions Disp Refills atorvastatin (LIPITOR) 80 mg tablet 90 tablet 3 Sig: Take 1 tablet by mouth daily at bedtime. glimepiride (AMARYL) 4 mg tablet 180 tablet 3 Sig: Take 1 tablet by mouth two times a day with meals. clopidogrel (PLAVIX) 75 mg tablet 90 tablet 3 Sig: Take 1 tablet by mouth once daily. empagliflozin (JARDIANCE) 25 mg tablet 90 tablet 3 Sig: Take 1 tablet by mouth daily with breakfast. lisinopril (ZESTRIL) 10 mg tablet 90 tablet 3 Sig: Take 1 tablet by mouth once daily. metFORMIN (GLUCOPHAGE) 1,000 mg tablet 180 tablet 3 Sig: Take 1 tablet by mouth two times a day with meals. metoprolol succinate ER (TOPROL XL) 25 mg 24 hr tablet 90 tablet 3 Sig: Take 1 tablet by mouth once daily. SITagliptin phosphate (JANUVIA) 100 mg tablet 90 tablet 3 Sig: Take 1 tablet by mouth once daily. Henry Kaufman LPN February 01, 2024 11:03 AM [facility]12-10-[facility] Miscellaneous Notes* Telephone Encounter - Henry Kaufman LPN - 02/01/2024 11:03 AM EST Prescription Refill Information The patient has been identified by name and date of : Yes Caregiver verified no other encounters exist for this prescription request: Yes Caregiver confirmed with patient/requestor that no other refills are due, in the near future, with this provider at this time: Yes The last office visit in the department: 09/10/23 Does the patient have a future office visit with this provider/department: Yes Requested Prescriptions Pending Prescriptions Disp Refills atorvastatin (LIPITOR) 80 mg tablet 90 tablet 3 Sig: Take 1 tablet by mouth daily at bedtime. glimepiride (AMARYL) 4 mg tablet 180 tablet 3 Sig: Take 1 tablet by mouth two times a day with meals. clopidogrel (PLAVIX) 75 mg tablet 90 tablet 3 Sig: Take 1 tablet by mouth once daily. empagliflozin (JARDIANCE) 25 mg tablet 90 tablet 3 Sig: Take 1 tablet by mouth daily with breakfast. lisinopril (ZESTRIL) 10 mg tablet 90 tablet 3 Sig: Take 1 tablet by mouth once daily. metFORMIN (GLUCOPHAGE) 1,000 mg tablet 180 tablet 3 Sig: Take 1 tablet by mouth two times a day with meals. metoprolol succinate ER (TOPROL XL) 25 mg 24 hr tablet 90 tablet 3 Sig: Take 1 tablet by mouth once daily. SITagliptin phosphate (JANUVIA) 100 mg tablet 90 tablet 3 Sig: Take 1 tablet by mouth once daily. Henry Kaufman LPN February 01, 2024 11:03 AM * Telephone Encounter - Kenai Tootie Putnam - 02/01/2024 9:27 AM EST Prescription Refill Information The patient has been identified by name and date of : Yes Caregiver verified no other encounters exist for this prescription request: Yes Caregiver confirmed with patient/requestor that no other refills are due, in the near future, with this provider at this time: Yes The last office visit in the department: 09/10/23 Does the patient have a future office visit with this provider/department: Yes Requested Prescriptions Pending Prescriptions Disp Refills atorvastatin (LIPITOR) 80 mg tablet 90 tablet 3 Sig: Take 1 tablet by mouth daily at bedtime. glimepiride (AMARYL) 4 mg tablet 180 tablet 3 Sig: Take 1 tablet by mouth two times a day with meals. clopidogrel (PLAVIX) 75 mg tablet 90 tablet 3 Sig: Take 1 tablet by mouth once daily. empagliflozin (JARDIANCE) 25 mg tablet 90 tablet 3 Sig: Take 1 tablet by mouth daily with breakfast. lisinopril (ZESTRIL) 10 mg tablet 90 tablet 3 Sig: Take 1 tablet by mouth once daily. metFORMIN (GLUCOPHAGE) 1,000 mg tablet 180 tablet 3 Sig: Take 1 tablet by mouth two times a day with meals. metoprolol succinate ER (TOPROL XL) 25 mg 24 hr tablet 90 tablet 3 Sig: Take 1 tablet by mouth once daily. SITagliptin phosphate (JANUVIA) 100 mg tablet 90 tablet 3 Sig: Take 1 tablet by mouth once daily. Tootie Putnam February 01, 2024 9:31 AM documented in [facility] encounter[facility] Telephone encounter Note * Telephone Encounter - Tootie Black - 02/01/2024 9:27 AM EST Prescription Refill Information The patient has been identified by name and date of : Yes Caregiver verified no other encounters exist for this prescription request: Yes Caregiver confirmed with patient/requestor that no other refills are due, in the near future, with this provider at this time: Yes The last office visit in the department: 09/10/23 Does the patient have a future office visit with this provider/department: Yes Requested Prescriptions Pending Prescriptions Disp Refills atorvastatin (LIPITOR) 80 mg tablet 90 tablet 3 Sig: Take 1 tablet by mouth daily at bedtime. glimepiride (AMARYL) 4 mg tablet 180 tablet 3 Sig: Take 1 tablet by mouth two times a day with meals. clopidogrel (PLAVIX) 75 mg tablet 90 tablet 3 Sig: Take 1 tablet by mouth once daily. empagliflozin (JARDIANCE) 25 mg tablet 90 tablet 3 Sig: Take 1 tablet by mouth daily with breakfast. lisinopril (ZESTRIL) 10 mg tablet 90 tablet 3 Sig: Take 1 tablet by mouth once daily. metFORMIN (GLUCOPHAGE) 1,000 mg tablet 180 tablet 3 Sig: Take 1 tablet by mouth two times a day with meals. metoprolol succinate ER (TOPROL XL) 25 mg 24 hr tablet 90 tablet 3 Sig: Take 1 tablet by mouth once daily. SITagliptin phosphate (JANUVIA) 100 mg tablet 90 tablet 3 Sig: Take 1 tablet by mouth once daily. Tootie Putnam February 01, 2024 9:31 AM [facility]10-24-2024 Telephone encounter Note* Telephone Encounter - Ignacio Vegas RN - 12/16/2023 10:32 AM EDT We will be fine by then. Our machine is back in working order. [facility]-24-[facility] Miscellaneous Notes* Telephone Encounter - Ignacio Vegas RN - 12/16/2023 10:32 AM EDT We will be fine by then. Our machine is back in working order. * Telephone Encounter - Guillermo Pollack MA - 12/16/2023 8:46 AM EDT Nathalia Pierre, Any word on if you guys are getting a new ultra sound or getting yours fixed by then? Guillermo Pollack MA * Telephone Encounter - Jennie Smith - 12/16/2023 8:15 AM EDT Patient wanted to reschedule his biopsy to [place] in February of next year. Scheduled for 02/29/2024. Please advise for his antibiotic prior to appointment. Jennie Smith documented in this encounterPar[facility]10-24-2024 Telephone encounter Note * Telephone Encounter - Guillermo Pollack MA - 12/16/2023 8:46 AM EDT Nathalia or Ignacio, Any word on if you guys are getting a new ultra sound or getting yours fixed by then? Guillermo Pollack MA [facility]10-24-2024 Telephone encounter Note* Telephone Encounter - Jennie Smith - 12/16/2023 8:15 AM EDT Patient wanted to reschedule his biopsy to [place] in February of next year. Scheduled for 02/29/2024. Please advise for his antibiotic prior to appointment. Jennie Smith [facility]10-15-2024 Telephone encounter Note* Telephone Encounter - Araceli Sanchez MA - 12/07/2023 10:41 AM EDT Pt called to confirm appt with Dr Jefferson/appt confirmed by office/01/13/24 Araceli Sanchez MA [facility]10-15-2024 Miscellaneous Notes* Telephone Encounter - Araceli Sanchez MA - 12/07/2023 10:41 AM EDT Pt called to confirm appt with Dr Jefferson/appt confirmed by office/01/13/24 Araceli Sanchez MA documented in this encounterPar[facility]10-11-2024 Telephone encounter Note * Telephone Encounter - Ayan Jefferson Jr., MD - 12/03/2023 10:03 AM EDT Can schedule with me [facility] Work Phone: [phone] Miscellaneous Notes* Telephone Encounter - Ayan Jefferson Jr., MD - 12/03/2023 10:03 AM EDT Can schedule with ia * Telephone Encounter - Lilliana Ceron - 12/03/2023 9:45 AM EDT Left pt vm re: needs scheduled for prostate bx with Dr. Jefferson. Ref by Kendell Martinez for elev PSA. Kira * Telephone Encounter - Brady Martinez PA-C - 12/03/2023 9:33 AM EDT Patient with elevated PSA and abnormal IsoPSA of 6.3% Needs a prostate biopsy, orders placed current Blood thinner Plavix Patient # [phone] (Home Phone) ROBERT Augustine, NVMIGUEL ANGEL * Telephone Encounter - Perla Chaudhary MA - 12/02/2023 11:46 AM EDT Pt called back. He was given results and would like to go ahead and schedule the biopsy. Please place orders and route to scheduling. He will await their call. Perla Chaudhary MA * Telephone Encounter - Dolores Castano LPN - 12/01/2023 2:33 PM EDT Called patient- no answer. Left message to call clinic for results/recommendations. Dolores Castano LPN * Telephone Encounter - Dolores Castano LPN - 11/30/2023 9:44 AM EDT Called patient- no answer. Left message to call clinic for results/recommendations. Dolores Castano LPN * Telephone Encounter - Brady Martinez PA-C - 11/29/2023 6:29 PM EDT Please notify patient that his IsoPSA came back at 6.3 % and a PSA of 5.86 The IsoPSA being greater than 6.1% indicates there is a risk of high grade prostate cancer in the next 10 years So a prostate biopsy is recommended. Orders have been placed for biopsy if he wished to have biopsy I will arrange procedure with staff Urologist If he wishes to discuss results I am happy to discuss at visit. ROBERT Augustine MT, PA-C documented in this encounterPar[facility]10-11-2024 Telephone encounter Note * Telephone Encounter - Lilliana Ceron - 12/03/2023 9:45 AM EDT Left pt vm re: needs scheduled for prostate bx with Dr. Jefferson. Ref by Kendell Martinez for elev PSA. Kira [facility]10-11-2024 Telephone encounter Note* Telephone Encounter - Brady Martinez PA-C - 12/03/2023 9:33 AM EDT Patient with elevated PSA and abnormal IsoPSA of 6.3% Needs a prostate biopsy, orders placed current Blood thinner Plavix Patient # [phone] (Home Phone) ROBERT Augustine MT, PA-C [facility]-10-20[facility] Telephone encounter Note* Telephone Encounter - Perla Chaudhary MA - 12/02/2023 11:46 AM EDT Pt called back. He was given results and would like to go ahead and schedule the biopsy. Please place orders and route to scheduling. He will await their call. Perla Chaudhary MA [facility]10-09-[facility] Telephone encounter Note* Telephone Encounter - Dolores Castano LPN - 12/01/2023 2:33 PM EDT Called patient- no answer. Left message to call clinic for results/recommendations. Dolores Castano LPN [facility]10-08-2024 Telephone encounter Note* Telephone Encounter - Dolores Castano LPN - 11/30/2023 9:44 AM EDT Called patient- no answer. Left message to call clinic for results/recommendations. Dolores Castano LPN [facility]10-07-[facility] Telephone encounter Note* Telephone Encounter - Brady Martinez PA-C - 11/29/2023 6:29 PM EDT Please notify patient that his IsoPSA came back at 6.3 % and a PSA of 5.86 The IsoPSA being greater than 6.1% indicates there is a risk of high grade prostate cancer in the next 10 years So a prostate biopsy is recommended. Orders have been placed for biopsy if he wished to have biopsy I will arrange procedure with staff Urologist If he wishes to discuss results I am happy to discuss at visit. ROBERT Augustine, MIGUEL ANGEL FERRARO [facility]10-01-2024 Instructions* Patient Instructions* Brady Martinez PA-C - 11/23/2023 4:35 PM EDT > IsoPSA - Today at lab > 3 mo Follow-up with ROBERT Cortés MT, PA-C after IsoPSA and Or Biopsy > if IsoPSA is less that 6% then follow-up in 1 year with PSA documented in this encounterPar[facility]10-01-2024 History of Present illness Narrative* Brady Martinez PA-C - 11/23/2023 4:15 PM EDT Images from the original note were not included. [facility] NEW PATIENT CLINIC NOTE SERVICE DATE: November 23, 2023 NAME: Victor Hugo Sheth CHIEF COMPLAINT: Elevated PSA HISTORY OF PRESENT ILLNESS: Victor Hugo Sheth is a 73 year old male an new patient here for Elevated PSA The patient reports recent PSA of 4.50, Brother with CaP treated with likely RP at age 75 and doingwell as far as patient is aware No concerning AIDA , just minor BPH LUTS LUTS: none LABS: Latest Ref Rng 11/15/2015 11/12/2016 11/25/2017 01/18/2019 03/08/2019 07/12/2019 12/11/2020 04/14/2021 10/09/2021 03/17/2022 10/01/2022 08/20/2023 PSA <2.60 ng/mL 1.86 1.76 1.96 3.23 (H) 2.34 2.54 3.04 (H) 3.33 (H) 3.35 (H) 3.18 (H) 4.00 (H) 4.50 (H) PSA, Percent Free % 19 20 17 15 16 18 19 13 Legend: (H) High MEDICATIONS: SITagliptin phosphate (JANUVIA) 100 mg tablet Take 1 tablet by mouth once daily. lisinopril (ZESTRIL) 10 mg tablet Take 1 tablet by mouth once daily. empagliflozin (JARDIANCE) 25 mg tablet Take 1 tablet by mouth daily with breakfast. clopidogrel (PLAVIX) 75 mg tablet Take 1 tablet by mouth once daily. metoprolol succinate ER (TOPROL XL) 25 mg 24 hr tablet Take 1 tablet by mouth once daily. glimepiride (AMARYL) 4 mg tablet Take 1 tablet by mouth two times a day with meals. atorvastatin (LIPITOR) 80 mg tablet Take 1 tablet by mouth daily at bedtime. metFORMIN (GLUCOPHAGE) 1,000 mg tablet Take 1 tablet by mouth two times a day with meals. ferrous sulfate (SLOW FE) 137 mg (45 mg iron) TbER Take one tab every over day with your Vit C tab ascorbic acid, vitamin C, (VITAMIN C) 500 mg tablet Take one every other day with your iron tab. blood sugar diagnostic (BLOOD GLUCOSE TEST) test strip Test blood sugar(s) 2 times daily. Dx: OtherDM Code E11.42 Insulin: No albuterol HFA (PROVENTIL HFA, VENTOLIN HFA) 90 mcg/actuation inhaler Inhale 2 Puffs as instructed every 4 hours as needed. Lancets lancets Test blood sugar(s) 2 times daily. Dx: Other DM Code E11.42 Insulin: No Blood-Glucose Meter Test Blood Sugars 2 times daily Dx E11.42 Insulin: No flash glucose sensor (FREESTYLE ADRIAN 10 DAY SENSOR) kit 1 Each one time a week. Check blood sugar twice a day flash glucose scanning reader (FREESTYLE ADRIAN 10 DAY READER) 1 Device twice daily. Check blood sugar twice a day PAST MEDICAL HISTORY: PAST MEDICAL HISTORY Diagnosis Date Advance directive discussed with patient 10/22/2021 Discussed 09/2021 Arthritis of both knees 12/12/2019 CAD (coronary artery disease), [place] coronary artery 05/14/[address] Khalil [facility] 05/14/[address] [facility] report from [facility], showed 85% stenosis in pLAD followed by 95% stenosis and 50-75% stenosis in mid LAD. Minimal disease in LCx and LCA. RCA withproximal and distal 25% stenosis. [facility] 05/17 s/p YESENIA x2 to LAD Plan: Dc home with follow-up Continue Plavix Carpal tunnel syndrome of right wrist 10/27/2013 EMG/NCT 10/27/13=mild right CTS Chronic systolic congestive heart failure (HCC) 03/13/2015 08/02/2018: Home BP Cuff Validated. Home BP: 118/71 Office BP: 116/72 Combined forms of age-related cataract of both eyes 06/15/2016 Combined forms of age-related cataract, bilateral 06/15/2016 Congestive heart failure (HCC) 03/13/2015 COPD with chronic bronchitis (HCC) 03/13/2015 Corneal scar, right eye 07/18/2020 DDD (degenerative disc disease), cervical DDD (degenerative disc disease), lumbar 12/07/2019 Depression with anxiety Diabetic eye exam ([facility]) 05/15/2015 Last done 06/27/2018: no retinopathy. Dry eye syndrome of both eyes 07/18/2020 Elevated PSA 01/26/2019 Encounter for Medicare annual wellness exam 11/17/2017 Medicare Part B: 12/23/2016 last done: 09/10/2023 Does not want ELMO or colonoscopy Essential hypertension 09/19/2018 Gastroesophageal reflux disease without esophagitis 03/13/2015 History of compression fracture of spine 1971 high school football Iron deficiency anemia 09/26/2019 Iron deficiency anemia 09/26/2019 EGD and colonoscopy done 10/2019 Ischemic cardiomyopathy 05/25/2014 Leukocytosis 09/19/2018 Repeat 10/2018 ok Living will in place 10/22/2021 DPA: Jon (son) Medicare annual wellness visit, initial 11/17/2017 Medicare Part B: 12/23/2016 last done: 01/26/2019 Does not want ELMO or colonoscopy Mixed hyperlipidemia 09/13/2012 Neck pain 10/04/2013 Obesity, Class II, BMI 35-39.9 05/13/2017 Presence of drug coated stent in LAD coronary artery 05/25/2014 Smoker 03/13/2015 Started at 20 yo up to 2 PPD. as of 02/2015 only 5 cigs a day Tachycardia 10/30/2014 Thrombocytosis 09/19/2018 Repeat 10/2018 ok Type 2 diabetes mellitus with diabetic neuropathy, without long-term current use of insulin ([facility]) 11/20/2015 Type 2 diabetes mellitus without retinopathy ([facility]) 10/12/2014 Vitreous floaters of both eyes 10/12/2014 PAST SURGICAL HISTORY: PAST SURGICAL HISTORY Procedure Laterality Date COLONOSCOPY FLX DX W/COLLJ SPEC WHEN PFRMD 11/16/2019 Colonoscopy ESOPHAGOGASTRODUODENOSCOPY TRANSORAL DIAGNOSTIC 11/16/2019 EGD FECAL OCCULT BLOOD TEST 03/08/2019 negative HEART CATHETERIZATION 05/14/14 triple vessel disease, YESENIA x 2 to the prox and mid LAD PAST SURGICAL HISTORY OF 1970 vertebral fracture in football? no repair. REPAIR FINGER TENDON left hand- cut tendons with chain saw TONSILLECTOMY & ADENOIDECTOMY AGE 14/> 1981 TONSILLECTOMY HX FAMILY HISTORY: FAMILY HISTORY Problem Relation Age of Onset Emphysema Father Coronary Artery Disease Brother CABG Hypertension Brother Prostate Cancer Brother SOCIAL HISTORY: Social Connections: Not on file REVIEW OF SYSTEMS: GENERAL: No fever, chills, weight loss, or fatigue. ENMT: Negative CARDIOVASCULAR:NO CHEST PAIN, PALPITATIONS, ANKLE EDEMA RESPIRATORY: No chronic cough, wheezing, dyspnea, hemoptysis. GENITOURINARY: SEE HPI MUSCULOSKELETAL:NO CHRONIC BACK PAIN, ARTHRITIS, CHRONIC NECK PAIN SKIN: NO VARICOSE VEINS, RASH, ABNORMAL ITCHING HEME/LYMPH/IMMUNE:Negative for prolonged bleeding, bruising easily or swollen nodes NEUROLOGICAL: NO HEADACHES, NUMBNESS, SEIZURES, STROKE DIABETES: Yes All other systems reviewed and are negative PHYSICAL EXAMINATION: Blood pressure 132/74, pulse 104, temperature 36.3 C (97.3 F), temperature source Temporal, resp. rate 22, weight 102.1 kg (225 lb), SpO2 97%. GENERAL: WNL nutrition, no deformities, healthy appearing NEURO: Awake, alert and oriented x 3 and Normal gait PSYCH: No signs of depression, anxiety, or agitation ENMT (Ear, Nose, Mouth, Throat): No masses, adenopathy, icterus. Thyroid nonpalpable RESP: NL effort, no retractions or purse-lip breathing. CV: No extremity swelling, varices, edema, pallor, erythema GASTROINTESTINAL: Soft, nontender, nondistended, no masses. HERNIAS: None SKIN: No rash, lesions No palpable lymphadenopathy MUSCULOSKELETAL: Extremities normal. No deformities, edema, clubbing or skin discoloration. PROBLEM LIST REVIEW: Yes LABS: Results for orders placed or performed in visit on 11/23/23 UA DIP, URINE (POC) Result Value Ref Range GLUCOSE UA (POCT) 500 (A) Negative mg/dL BILIRUBIN UA (POCT) Negative Negative KETONE UA (POCT) Negative Negative mg/dL SPECIFIC GRAVITY UA (POCT) 1.020 1.005 - 1.030 HEMOGLOBIN/BLOOD UA (POCT) Negative Negative PH UA (POCT) 5.5 4.5 - 8.0 PROTEIN UA (POCT) Negative Negative mg/dL UROBILINOGEN UA (POCT) 0.2 Normal E.U./dL NITRITE UA (POCT) Negative Negative LEUKOCYTES UA (POCT) Negative Negative COLOR UA (POCT) Yellow CLARITY UA (POCT) Clear PROCEDURES: PVR: 0 ml ASSESSMENT/PLAN: 1. Elevated PSA - ICD9: 790.93, ICD10: R97.20 (primary diagnosis) > PSA 4.50 >- POST VOID RESIDUAL - 0 ml > IsoPSA - Pending today 2. Screening for genitourinary condition - ICD9: V81.6, ICD10: Z13.89 - POST VOID RESIDUAL - 0ml New Diagnosis of unknown prognosis > 3 mo Follow-up with ROBERT Cortés MT, PA-C after IsoPSA and Or Biopsy > if IsoPSA is less that 6% then follow-up in 1 year with PSA Consultation requested by Jorden Hartmann [id number] [facility] [id number] for an opinion regarding Victor Hugo Sheth patient and my final recommendations will be communicated back to the requesting physician by way of shared Medical record or letter via US mail. ROBERT Augustine MT, PA-C * Dolores Castano LPN - 11/23/2023 4:04 PM EDT Verified name and date of . CC Post Void Residual HPI: Victor Hugo Sheth is a 73 year old male. The patient is here now for an appointment with ROBERT Augustine MT, PA-COV. Procedure: Explained procedure to patient and verbalizes understanding. Performed a PVR. Patient urinated and instructed to empty bladder as much as possible just prior to having PVR done using bladder ultrasound scanner. Results of scan: 0 mL The patient tolerated the procedure well. Plan: Appointment with Brady. documented in [facility] encounterPar[facility]09-[facility]-2024 Telephone encounter Note * Telephone Encounter - Marti Dexter LPN - 11/16/2023 2:58 PM EDT Patient notified no PA is needed, it is covered by insurance. Patient will call pharmacy. Marti Dexter LPN [facility]09-24-2024 Miscellaneous Notes* Telephone Encounter - Marti Dexter LPN - 11/16/2023 2:58 PM EDT Patient notified no PA is needed, it is covered by insurance. Patient will call pharmacy. Marti Dexter LPN * Telephone Encounter - Sheyla Shelton LPN - 11/16/2023 11:26 AM EDT Per covermymeds no PA is needed this is covered. Called they pharmacy and pt picked this up 10/29/23. Message left for pt to return call to a nurse. * Telephone Encounter - Sheyla Shelton LPN - 11/15/2023 3:59 PM EDT Unable to complete PA electronically. Will try via covermymeds. * Telephone Encounter - Sheyla Shelton LPN - 11/15/2023 3:56 PM EDT Electronic PA requested for review. * Telephone Encounter - Mary Trivedi RN - 11/15/2023 3:51 PM EDT PRIOR AUTHORIZATION Medication for Prior Authorization: Sitagliptin phosphate (Januvia) Insurance Company: [employer] phone number: [phone] Patient insurance ID number: [id number] Mary Trivedi RN documented in [facility] encounterPar[facility]09-[facility]-2024 Telephone encounter Note * Telephone Encounter - Sheyla Shelton LPN - 11/16/2023 11:26 AM EDT Per covermymeds no PA is needed this is covered. Called they pharmacy and pt picked this up 10/29/23. Message left for pt to return call to a nurse. [facility] Telephone encounter Note* Telephone Encounter - Sheyla Shelton LPN - 11/15/2023 3:59 PM EDT Unable to complete PA electronically. Will try via covermymeds. [facility]-23-[facility] Telephone encounter Note* Telephone Encounter - Sheyla Shelton LPN - 11/15/2023 3:56 PM EDT Electronic PA requested for review. [facility] Telephone encounter Note* Telephone Encounter - Mary Trivedi RN - 11/15/2023 3:51 PM EDT PRIOR AUTHORIZATION Medication for Prior Authorization: Sitagliptin phosphate (Januvia) Insurance Company: [employer] phone number: [phone] Patient insurance ID number: [id number] Mary Trivedi RN [facility]09-20-2024 Telephone encounter Note* Telephone Encounter - An Mane RN - 11/12/2023 6:58 PM EDT Reason for Call: Patient states that his insurance company required a prior authorization for Januvia that was just called in because he just filled it. He states he does not have them. Patient denies any new or worsening symptoms of which a provider is not aware:Yes . Outcome: Patient instructed to call pharmacy and request buying at least enough Januvia until Wednesday. He will call office in the morning to discuss prior authorization, [facility]09-20-2024 Miscellaneous Notes* Telephone Encounter - An Mane RN - 11/12/2023 6:58 PM EDT Reason for Call: Patient states that his insurance company required a prior authorization for Januvia that was just called in because he just filled it. He states he does not have them. Patient denies any new or worsening symptoms of which a provider is not aware:Yes . Outcome: Patient instructed to call pharmacy and request buying at least enough Januvia until Wednesday. He will call office in the morning to discuss prior authorization, documented in this encounterPar[facility]09-20-2024 Telephone encounter Note * Telephone Encounter - Kassie Rdz LPN - 11/12/2023 6:07 PM EDT Allergies reviewed: Yes ALLERGIES Allergen Reactions Rybelsus [Semagluti* Diarrhea The following medications were verbally ordered by and read back to provider Dr. Hartmann on 11/12/2023 at 6:07 PM by Kassie Rdz LPN. Requested Prescriptions Signed Prescriptions Disp Refills SITagliptin phosphate (JANUVIA) 100 mg tablet 90 tablet 0 Sig: Take 1 tablet by mouth once daily. The prescription(s) were escripted to [facility]; by Kassie Rdz LPN. Escript confirmed receipt from pharmacy at 6:07 PM Patient/Family notified: Yes Dr. Hartmann state if pt cannot get insurance to over ride duplicate script since 10/29/23 script was lost, for pt to call in and message to be sent to Dr. Hartmann who will review his chart this weekend. ANIRUDH Moser LPN [facility]09-20-2024 Miscellaneous Notes* Telephone Encounter - Kassie Rdz LPN - 11/12/2023 6:07 PM EDT Allergies reviewed: Yes ALLERGIES Allergen Reactions Rybelsus [Semagluti* Diarrhea The following medications were verbally ordered by and read back to provider Dr. Hartmann on 11/12/2023 at 6:07 PM by Kassie Rdz LPN. Requested Prescriptions Signed Prescriptions Disp Refills SITagliptin phosphate (JANUVIA) 100 mg tablet 90 tablet 0 Sig: Take 1 tablet by mouth once daily. The prescription(s) were escripted to [facility]; by Kassie Rdz LPN. Escript confirmed receipt from pharmacy at 6:07 PM Patient/Family notified: Yes Dr. Hartmann state if pt cannot get insurance to over ride duplicate script since 10/29/23 script was lost, for pt to call in and message to be sent to Dr. Hartmann who will review his chart this weekend. ANIRUDH Moser LPN * Telephone Encounter - Kassie Rdz LPN - 11/12/2023 5:58 PM EDT Spoke with pharmacy who states 10/29/23 script was picked up on 10/31/23 with 9 other refills. Pt states he did not receive the Tazuvia, conference called pharmacy who continues to state medication was picked up on 10/31/23. Pt triple checked medicine cabinet and could not find script. Paged hematology oncology consultant provider. Kassie Rdz LPN * Telephone Encounter - Jos Tucker RN - 11/12/2023 5:30 PM EDT Patient calling with request for medication/refill: Patient/caregiver requesting refill of Januvia 100mg be called to [facility]) pharmacy at [phone]., Allergies reviewed: Yes, Medication and Dosage reviewed: Yes, Do you have enough medication to last until the office reopens? No. , and Have you contacted your pharmacy to ask for enough medication to get by until the office reopens? Patient states that he received refills on all his medications on 10/28 but never received this medication from the pharmacy. Patient states he reached out to the pharmacy and they advised him they never received the medication refill and the medication needs to be called in. Patient denies any new or worsening symptoms of which a provider is not aware: Yes. GO TO THE EMERGENCY ROOM OR CALL 911 IF: * You develop any new symptoms * Your condition worsens * You are concerned or anxious about your condition for any other reason. If you have any questions, you can call Nurse territory sales consultant back. documented in [facility] encounter[facility] Telephone encounter Note * Telephone Encounter - Kassie Rdz LPN - 11/12/2023 5:58 PM EDT Spoke with pharmacy who states 10/29/23 script was picked up on 10/31/23 with 9 other refills. Pt states he did not receive the Januvia, conference called pharmacy who continues to state medication was picked up on 10/31/23. Pt triple checked medicine cabinet and could not find script. Paged hematology oncology consultant provider. Kassie Rdz LPN [facility]09-[facility]20[facility] Telephone encounter Note* Telephone Encounter - Jos Tucker RN - 11/12/2023 5:30 PM EDT Patient calling with request for medication/refill: Patient/caregiver requesting refill of Januvia 100mg be called to [facility]) pharmacy at [phone]., Allergies reviewed: Yes, Medication and Dosage reviewed: Yes, Do you have enough medication to last until the office reopens? No. , and Have you contacted your pharmacy to ask for enough medication to get by until the office reopens? Patient states that he received refills on all his medications on 10/28 but never received this medication from the pharmacy. Patient states he reached out to the pharmacy and they advised him they never received the medication refill and the medication needs to be called in. Patient denies any new or worsening symptoms of which a provider is not aware: Yes. GO TO THE EMERGENCY ROOM OR CALL 911 IF: * You develop any new symptoms * Your condition worsens * You are concerned or anxious about your condition for any other reason. If you have any questions, you can call Nurse territory sales consultant back. [facility]09-04-20[facility] Telephone encounter Note* Telephone Encounter - Kamryn Hurst - 10/27/2023 3:50 PM EDT Prescription Refill Information The patient has been identified by name and date of : Yes Caregiver verified no other encounters exist for this prescription request: Yes Caregiver confirmed with patient/requestor that no other refills are due, in the near future, with this provider at this time: Yes The last office visit in the department: Does the patient have a future office visit with this provider/department: Yes Requested Prescriptions Pending Prescriptions Disp Refills SITagliptin phosphate (JANUVIA) 100 mg tablet 90 tablet 0 Sig: Take 1 tablet by mouth once daily. lisinopril (ZESTRIL) 10 mg tablet 90 tablet 0 Sig: Take 1 tablet by mouth once daily. empagliflozin (JARDIANCE) 25 mg tablet 90 tablet 0 Sig: Take 1 tablet by mouth daily with breakfast. clopidogrel (PLAVIX) 75 mg tablet 90 tablet 0 Sig: Take 1 tablet by mouth once daily. metoprolol succinate ER (TOPROL XL) 25 mg 24 hr tablet 90 tablet 0 Sig: Take 1 tablet by mouth once daily. glimepiride (AMARYL) 4 mg tablet 180 tablet 0 Sig: Take 1 tablet by mouth two times a day with meals. atorvastatin (LIPITOR) 80 mg tablet 90 tablet 0 Sig: Take 1 tablet by mouth daily at bedtime. metFORMIN (GLUCOPHAGE) 1,000 mg tablet 180 tablet 0 Sig: Take 1 tablet by mouth two times a day with meals. Kamryn Putnam October 27, 2023 3:51 PM [facility]09-04-2024 Miscellaneous Notes* Telephone Encounter - Kamryn Hurst - 10/27/2023 3:50 PM EDT Prescription Refill Information The patient has been identified by name and date of : Yes Caregiver verified no other encounters exist for this prescription request: Yes Caregiver confirmed with patient/requestor that no other refills are due, in the near future, with this provider at this time: Yes The last office visit in the department: Does the patient have a future office visit with this provider/department: Yes Requested Prescriptions Pending Prescriptions Disp Refills SITagliptin phosphate (JANUVIA) 100 mg tablet 90 tablet 0 Sig: Take 1 tablet by mouth once daily. lisinopril (ZESTRIL) 10 mg tablet 90 tablet 0 Sig: Take 1 tablet by mouth once daily. empagliflozin (JARDIANCE) 25 mg tablet 90 tablet 0 Sig: Take 1 tablet by mouth daily with breakfast. clopidogrel (PLAVIX) 75 mg tablet 90 tablet 0 Sig: Take 1 tablet by mouth once daily. metoprolol succinate ER (TOPROL XL) 25 mg 24 hr tablet 90 tablet 0 Sig: Take 1 tablet by mouth once daily. glimepiride (AMARYL) 4 mg tablet 180 tablet 0 Sig: Take 1 tablet by mouth two times a day with meals. atorvastatin (LIPITOR) 80 mg tablet 90 tablet 0 Sig: Take 1 tablet by mouth daily at bedtime. metFORMIN (GLUCOPHAGE) 1,000 mg tablet 180 tablet 0 Sig: Take 1 tablet by mouth two times a day with meals. Kamryn Putnam October 27, 2023 3:51 PM documented in this encounterPar[facility]08-26-2024 Telephone encounter Note * Telephone Encounter - Mandeep Baum RN - 10/18/2023 2:01 PM EDT Pt reports pcp wrote referral for him to see urologist for elevated psa. Pt reports Dr. Vazquez doesnot accept his insurance. Pt asking if he can be seen by urology at [facility] in [place]. This nurse spoke with shirin Giron in Urology, with this question, and Bree states urology with see pt. Bree agrees to call pt to schedule appt. [facility] Miscellaneous Notes* Telephone Encounter - Mandeep Baum RN - 10/18/2023 2:01 PM EDT Pt reports pcp wrote referral for him to see urologist for elevated psa. Pt reports Dr. Vazquez doesnot accept his insurance. Pt asking if he can be seen by urology at [facility] in [place]. This nurse spoke with shirin Giron in Urology, with this question, and Bree [facility] urology with see pt. Bree agrees to call pt to schedule appt. documented in this encounterPar[facility]08-05-2024 Telephone encounter Note * Telephone Encounter - Jorden Hartmann MD - 09/27/2023 3:40 PM EDT Noted. [facility] Miscellaneous Notes* Telephone Encounter - Jorden Hartmann MD - 09/27/2023 3:40 PM EDT Noted. * Telephone Encounter - Merced Cole LPN - 09/27/2023 3:13 PM EDT Patient returned call and went over both notes from Dr Hartmann with understanding. Patient said he needs to think about this and call office back with what he decides for both, Urology and Cardiology. * Telephone Encounter - Jennifer Ferraro MA - 09/27/2023 10:19 AM EDT Left message for patient to contact office. Jennifer Ferraro MA * Telephone Encounter - Jorden Hartmann MD - 09/24/2023 4:27 PM EDT Let patient know the US of his heart showed decreased function by about 5% compared to previous echo done in 2017. I would like to get him back in with a rn faculty. We have two that only come to [place] on Mondays so it could take awhile to get an appt set up or we can refer him to the [place] [facility]. * Telephone Encounter - Raeann Smith MA - 09/21/2023 8:43 AM EDT Message left for pt to call back. Raeann Smith MA * Telephone Encounter - Jorden Hartmann MD - 09/20/2023 4:07 PM EDT Let patient know Dr. Rod does not take his insurance. The only option then to have his prostate evaluated would be urology in [place] or [facility]. * Telephone Encounter - Jennifer Ferraro MA - 09/20/2023 4:02 PM EDT Received fax from Dr. Rod's office regarding our referral. They do not accept patient's insurance. Jennifer Ferraro MA documented in this encounterPar[facility]08-[facility]-2024 Telephone encounter Note * Telephone Encounter - Merced Cole LPN - 09/27/2023 3:13 PM EDT Patient returned call and went over both notes from Dr Hartmann with understanding. Patient said he needs to think about this and call office back with what he decides for both, Urology and Cardiology. [facility] Telephone encounter Note* Telephone Encounter - Jennifer Ferraro MA - 09/27/2023 10:19 AM EDT Left message for patient to contact office. Jennifer Ferraro MA [facility]08-02-20[facility] Telephone encounter Note* Telephone Encounter - Jorden Hartmann MD - 09/24/2023 4:27 PM EDT Let patient know the US of his heart showed decreased function by about 5% compared to previous echo done in 2017. I would like to get him back in with a rn faculty. We have two that only come to [place] on Mondays so it could take awhile to get an appt set up or we can refer him to the [place] [facility]. [facility]-30[facility] Telephone encounter Note* Telephone Encounter - Raeann Smith MA - 09/21/2023 8:43 AM EDT Message left for pt to call back. Raeann Smith MA [facility]07-29-2024 Telephone encounter Note* Telephone Encounter - Jorden Hartmann MD - 09/20/2023 4:07 PM EDT Let patient know Dr. Rod does not take his insurance. The only option then to have his prostate evaluated would be urology in [place] or [facility]. [facility] Telephone encounter Note* Telephone Encounter - Jennifer Ferraro MA - 09/20/2023 4:02 PM EDT Received fax from Dr. Rod's office regarding our referral. They do not accept patient's insurance. Jennifer Ferraro MA [facility]07-12-20[facility] Telephone encounter Note* Telephone Encounter - Isabel Dodson RN - 09/03/2023 9:09 AM EDT Patient returns call and rescheduled to 09/10/2023. Isabel Dodson RN [facility]07-12-2024 Miscellaneous Notes* Telephone Encounter - Isabel Dodson RN - 09/03/2023 9:09 AM EDT Patient returns call and rescheduled to 09/10/2023. Isabel Dodson RN * Telephone Encounter - Michelle Crystal RN - 09/01/2023 9:00 AM EDT Called and left a voicemail for the Patient to call back and ask for a nurse to receive the providers message. Michelle Crystal RN * Telephone Encounter - Jorden Hartmann MD - 08/31/2023 8:28 PM EDT Patient's medicare wellness/extensive exam was to be on 08/25/23 and he No showed. He called in on 08/30/2023 to reschedule and they scheduled him out at 01/19/2024. Please get him in sooner. documented in this encounterPar[facility]07-10-2024 Telephone encounter Note * Telephone Encounter - Michelle Crystal RN - 09/01/2023 9:00 AM EDT Called and left a voicemail for the Patient to call back and ask for a nurse to receive the providers message. Michelle Crystal RN [facility]07-[facility]-20[facility] Telephone encounter Note* Telephone Encounter - Jorden Hartmann MD - 08/31/2023 8:28 PM EDT Patient's medicare wellness/extensive exam was to be on 08/25/23 and he No showed. He called in on 08/30/2023 to reschedule and they scheduled him out at 01/19/2024. Please get him in sooner. [facility] Telephone encounter Note* Telephone Encounter - Jorden Hartmann MD - 08/20/2023 3:18 PM EDT Blood and urine orders placed. [facility]-28-20[facility] Miscellaneous Notes* Telephone Encounter - Jorden Hartmann MD - 08/20/2023 3:18 PM EDT Blood and urine orders placed. * Telephone Encounter - Jennifer Ferraro MA - 08/20/2023 2:45 PM EDT Patient is here for labs for upcoming appointment and no orders. Please place orders. Jennifer Ferraro MA documented in this encounterPar[facility]06-28-2024 Telephone encounter Note * Telephone Encounter - Jennifer Ferraro MA - 08/20/2023 2:45 PM EDT Patient is here for labs for upcoming appointment and no orders. Please place orders. Jennifer Ferraro MA [facility] Telephone encounter Note* Telephone Encounter - Loli Zambrano LPN - 07/27/2023 8:26 AM EDT Last OV 12/03/2022 Next appointment 08/25/2023 [facility] Miscellaneous Notes* Telephone Encounter - Loli Zambrano LPN - 07/27/2023 8:26 AM EDT Last OV 12/03/2022 Next appointment 08/25/2023 * Telephone Encounter - Enedina Anderson - 07/27/2023 8:13 AM EDT Prescription Refill Information The patient has been identified by name and date of : Yes Caregiver verified no other encounters exist for this prescription request: Yes Caregiver confirmed with patient/requestor that no other refills are due, in the near future, with this provider at this time: Yes The last office visit in the department: 04/23/23 Does the patient have a future office visit with this provider/department: Yes Requested Prescriptions Pending Prescriptions Disp Refills metoprolol succinate ER (TOPROL XL) 25 mg 24 hr tablet 90 tablet 0 Sig: Take 1 tablet by mouth once daily. lisinopril (ZESTRIL) 10 mg tablet 90 tablet 0 Sig: Take 1 tablet by mouth once daily. clopidogrel (PLAVIX) 75 mg tablet 90 tablet 0 Sig: Take 1 tablet by mouth once daily. atorvastatin (LIPITOR) 80 mg tablet 90 tablet 0 Sig: Take 1 tablet by mouth daily at bedtime. SITagliptin phosphate (JANUVIA) 100 mg tablet 90 tablet 0 Sig: Take 1 tablet by mouth once daily. glimepiride (AMARYL) 4 mg tablet 180 tablet 0 Sig: Take 1 tablet by mouth two times a day with meals. empagliflozin (JARDIANCE) 25 mg tablet 90 tablet 0 Sig: Take 1 tablet by mouth daily with breakfast. metFORMIN (GLUCOPHAGE) 1,000 mg tablet 180 tablet 0 Sig: Take 1 tablet by mouth two times a day with meals. Enedina Putnam July 27, 2023 8:13 AM documented in this encounterPar[facility]06-04-2024 Telephone encounter Note * Telephone Encounter - Enedina Anderson - 07/27/2023 8:13 AM EDT Prescription Refill Information The patient has been identified by name and date of : Yes Caregiver verified no other encounters exist for this prescription request: Yes Caregiver confirmed with patient/requestor that no other refills are due, in the near future, with this provider at this time: Yes The last office visit in the department: 04/23/23 Does the patient have a future office visit with this provider/department: Yes Requested Prescriptions Pending Prescriptions Disp Refills metoprolol succinate ER (TOPROL XL) 25 mg 24 hr tablet 90 tablet 0 Sig: Take 1 tablet by mouth once daily. lisinopril (ZESTRIL) 10 mg tablet 90 tablet 0 Sig: Take 1 tablet by mouth once daily. clopidogrel (PLAVIX) 75 mg tablet 90 tablet 0 Sig: Take 1 tablet by mouth once daily. atorvastatin (LIPITOR) 80 mg tablet 90 tablet 0 Sig: Take 1 tablet by mouth daily at bedtime. SITagliptin phosphate (JANUVIA) 100 mg tablet 90 tablet 0 Sig: Take 1 tablet by mouth once daily. glimepiride (AMARYL) 4 mg tablet 180 tablet 0 Sig: Take 1 tablet by mouth two times a day with meals. empagliflozin (JARDIANCE) 25 mg tablet 90 tablet 0 Sig: Take 1 tablet by mouth daily with breakfast. metFORMIN (GLUCOPHAGE) 1,000 mg tablet 180 tablet 0 Sig: Take 1 tablet by mouth two times a day with meals. Enedina Marks Pss July 27, 2023 8:13 AM [facility] Work Phone: [phone]) 670-995603-07-2024 Miscellaneous Notes* Telephone Encounter - Kamryn Cuello RN - 04/29/2023 4:51 PM EST Patient returned call and PSS notified to contact patient to schedule appt as advised by PCP. Kamryn Cuello RN * Telephone Encounter - Perla Branch LPN - 04/29/2023 8:21 AM EST Left a message for pt to call the office and ask to speak to a nurse. Perla Branch LPN * Telephone Encounter - Jorden Hartmann MD - 04/28/2023 5:57 PM EST Patient should have a medicare extensive in April but appears he never set this up after his appt in . Needs this scheduled with either [facility] or [place]. The following approved medication requests have been transmitted electronically. Requested Prescriptions Signed Prescriptions Disp Refills atorvastatin (LIPITOR) 80 mg tablet 90 tablet 0 Sig: Take 1 tablet by mouth daily at bedtime. Authorizing Provider: JORDEN HARTMANN blood sugar diagnostic (BLOOD GLUCOSE TEST) test strip 100 Strip 11 Sig: Test blood sugar(s) 2 times daily. Dx: Other DM Code E11.42 Insulin: No Authorizing Provider: JORDEN HARTMANN clopidogrel (PLAVIX) 75 mg tablet 90 tablet 0 Sig: Take 1 tablet by mouth once daily. Authorizing Provider: JORDEN HARTMANN empagliflozin (JARDIANCE) 25 mg tablet 90 tablet 0 Sig: Take 1 tablet by mouth daily with breakfast. Authorizing Provider: JORDEN HARTMANN glimepiride (AMARYL) 4 mg tablet 180 tablet 0 Sig: Take 1 tablet by mouth two times a day with meals. Authorizing Provider: JORDEN HARTMANN lisinopril (ZESTRIL) 10 mg tablet 90 tablet 0 Sig: Take 1 tablet by mouth once daily. Authorizing Provider: JORDEN HARTMANN metFORMIN (GLUCOPHAGE) 1,000 mg tablet 180 tablet 0 Sig: Take 1 tablet by mouth two times a day with meals. Authorizing Provider: JORDEN HARTMANN SITagliptin phosphate (JANUVIA) 100 mg tablet 90 tablet 0 Sig: Take 1 tablet by mouth once daily. Authorizing Provider: JORDEN HARTMANN metoprolol succinate ER (TOPROL XL) 25 mg 24 hr tablet 90 tablet 0 Sig: Take 1 tablet by mouth once daily. Authorizing Provider: JORDEN HARTMANN MD * Telephone Encounter - Ba Cain LPN - 04/28/2023 5:29 PM EST [facility] 11/04/22 NOV no upcoming appt * Telephone Encounter - Adriana Khoury - 04/28/2023 3:55 PM EST Patient has been identified by name and date of : Yes, Patient phones for refill(s): Requested Prescriptions Pending Prescriptions Disp Refills atorvastatin (LIPITOR) 80 mg tablet 90 tablet 1 Sig: Take 1 tablet by mouth daily at bedtime. blood sugar diagnostic (BLOOD GLUCOSE TEST) test strip 100 Strip 11 Sig: Test blood sugar(s) 2 times daily. Dx: Other DM Code E11.42 Insulin: No clopidogrel (PLAVIX) 75 mg tablet 90 tablet 1 Sig: Take 1 tablet by mouth once daily. empagliflozin (JARDIANCE) 25 mg tablet 90 tablet 1 Sig: Take 1 tablet by mouth daily with breakfast. glimepiride (AMARYL) 4 mg tablet 180 tablet 1 Sig: Take 1 tablet by mouth two times a day with meals. lisinopril (ZESTRIL) 10 mg tablet 90 tablet 1 Sig: Take 1 tablet by mouth once daily. metFORMIN (GLUCOPHAGE) 1,000 mg tablet 180 tablet 1 Sig: Take 1 tablet by mouth two times a day with meals. SITagliptin phosphate (JANUVIA) 100 mg tablet 90 tablet 1 Sig: Take 1 tablet by mouth once daily. metoprolol succinate ER (TOPROL XL) 25 mg 24 hr tablet 90 tablet 1 Sig: Take 1 tablet by mouth once daily. Date of last office visit in primary care: 12/03/2022 Date of next office visit in primary care: Visit date not found Please advise. Thank you. Adriana Khoury. documented in this encounterPar[facility]11-20-2023 Miscellaneous Notes* Telephone Encounter - Alka Rand Ma - 01/11/2023 10:46 AM EST Patient last visit 12/03/22 Follow up appointment scheduled none Alka Rand Ma * Telephone Encounter - Lindy Acosta - 01/11/2023 9:55 AM EST Patient wants to know if this rx can be sent angela. Said he has been out of medication for a couple of days. * Telephone Encounter - Lindy Acosta - 01/11/2023 9:54 AM EST Patient has been identified by name and date of : Yes Requested Prescriptions Pending Prescriptions Disp Refills glimepiride (AMARYL) 4 mg tablet 180 tablet 1 Sig: Take 1 tablet by mouth two times a day with meals. RX INSTRUCTIONS: Patient aware RX will be sent to pharmacy. No need to notify patient. 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 HTN: Patient is compliant with meds Yes Monitors bp at home: occassionally. Denies side effects: Yes. Chest pain: No. Dyspnea: No. Edema: No. Palpitations: No. Syncope: No. Headache: No. Dizziness: No. Past medical history, appointments, medications, allergies reviewed. Previous Medical History PAST MEDICAL HISTORY Diagnosis Date Advance directive discussed with patient 10/22/2021 Discussed 09/2021 Arthritis of both knees 12/12/2019 CAD (coronary artery disease), [place] coronary artery 05/14/[address] Khalil [facility] 05/14/[address] [facility] report from [facility], showed 85% stenosis in pLAD followed by 95% stenosis and 50-75% stenosis in mid LAD. Minimal disease in LCx and LCA. RCA withproximal and distal 25% stenosis. [facility] 05/17 s/p YESENIA x2 to LAD Plan: Dc home with follow-up Continue Plavix Carpal tunnel syndrome of right wrist 10/27/2013 EMG/NCT 10/27/13=mild right CTS Combined forms of age-related cataract of both eyes 06/15/2016 Combined forms of age-related cataract, bilateral 06/15/2016 Congestive heart failure (HCC) 03/13/2015 COPD with chronic bronchitis (HCC) 03/13/2015 Corneal scar, right eye 07/18/2020 DDD (degenerative disc disease), cervical DDD (degenerative disc disease), lumbar 12/07/2019 Depression with anxiety Diabetic eye exam ([facility]) 05/15/2015 Last done 06/27/2018: no retinopathy. Dry eye syndrome of both eyes 07/18/2020 Elevated PSA 01/26/2019 Essential hypertension 09/19/2018 Gastroesophageal reflux disease without esophagitis 03/13/2015 History of compression fracture of spine 1969 high school football Iron deficiency anemia 09/26/2019 Iron deficiency anemia 09/26/2019 EGD and colonoscopy done 10/2019 Ischemic cardiomyopathy 05/25/2014 Leukocytosis 09/19/2018 Repeat 10/2018 ok Living will in place 10/22/2021 DPA: Jon (son) Medicare annual wellness visit, initial 11/17/2017 Medicare Part B: 12/23/2016 last done: 01/26/2019 Does not want ELMO or colonoscopy Mixed hyperlipidemia 09/13/2012 Neck pain 10/04/2013 Obesity, Class II, BMI 35-39.9 05/13/2017 Presence of drug coated stent in LAD coronary artery 05/25/2014 Smoker 03/13/2015 Started at 20 yo up to 2 PPD. as of 02/2015 only 5 cigs a day Tachycardia 10/30/2014 Thrombocytosis 09/19/2018 Repeat 10/2018 ok Type 2 diabetes mellitus with diabetic neuropathy, without long-term current use of insulin (HCC) 11/20/2015 Type 2 diabetes mellitus without retinopathy (HCC) 10/12/2014 Vitreous floaters of both eyes 10/12/2014 Previous Surgical History PAST SURGICAL HISTORY Procedure Laterality Date COLONOSCOPY FLX DX W/COLLJ SPEC WHEN PFRMD 11/16/2019 Colonoscopy ESOPHAGOGASTRODUODENOSCOPY TRANSORAL DIAGNOSTIC 11/16/2019 EGD FECAL OCCULT BLOOD TEST 03/08/2019 negative HEART CATHETERIZATION 05/14/14 triple vessel disease, YESENIA x 2 to the prox and mid LAD PAST SURGICAL HISTORY OF 1971 vertebral fracture in football? no repair. REPAIR FINGER TENDON left hand- cut tendons with chain saw TONSILLECTOMY & ADENOIDECTOMY AGE 14/> 1982 TONSILLECTOMY HX Family History FAMILY HISTORY Problem Relation Age of Onset Emphysema Father Coronary Artery Disease Brother CABG Hypertension Brother Prostate Cancer Brother Patient Allergies ALLERGIES Allergen Reactions Rybelsus [Semagluti* Diarrhea Current Medications Current Outpatient Medications on File Prior to Visit Medication Sig albuterol HFA (PROVENTIL HFA, VENTOLIN HFA) 90 mcg/actuation inhaler Inhale 2 Puffs as instructed every 4 hours as needed. atorvastatin (LIPITOR) 80 mg tablet Take 1 tablet by mouth daily at bedtime. blood sugar diagnostic (BLOOD GLUCOSE TEST) test strip Test blood sugar(s) 2 times daily. Dx: OtherDM Code E11.42 Insulin: No Blood-Glucose Meter Test Blood Sugars 2 times daily Dx E11.42 Insulin: No clopidogrel (PLAVIX) 75 mg tablet Take 1 tablet by mouth once daily. empagliflozin (JARDIANCE) 25 mg tablet Take 1 tablet by mouth daily with breakfast. Ferrous Sulfate (SLOW FE) 142 mg (45 mg iron) TbER Take 1 tablet by mouth once daily. flash glucose scanning reader (FREESTYLE ADRIAN 10 DAY READER) 1 Device twice daily. Check blood sugar twice a day flash glucose sensor (FREESTYLE ADRIAN 10 DAY SENSOR) kit 1 Each one time a week. Check blood sugar twice a day fluticasone-salmeterol (ADVAIR DISKUS) 100-50 mcg/dose inhaler Inhale 1 Puff as instructed twice daily. glimepiride (AMARYL) 4 mg tablet Take 1 tablet by mouth twice daily with meals. Lancets lancets Test blood sugar(s) 2 times daily. Dx: Other DM Code E11.42 Insulin: No lisinopril (ZESTRIL) 10 mg tablet Take 1 tablet by mouth once daily. metFORMIN (GLUCOPHAGE) 1,000 mg tablet Take 1 tablet by mouth twice daily with meals. metoprolol succinate ER (TOPROL XL) 25 mg 24 hr tablet Take 1 tablet by mouth once daily. SITagliptin phosphate (JANUVIA) 100 mg tablet Take 1 tablet by mouth once daily. No current facility-administered medications on file prior to visit. Social History Social History Tobacco Use Smoking status: Every Day Packs/day: 0.30 Years: 40.00 Additional pack years: 0.00 Total pack years: 12.00 Types: Cigarettes Smokeless tobacco: Never Tobacco comments: started smoking 20yo, usually 4 cigarettes per day Vaping Use Vaping Use: Never used Substance Use Topics Alcohol use: Yes Comment: few drinks per year Drug use: No Review of Symptoms REVIEW OF SYSTEMS SEE HPI EXAM: BP 138/80 Pulse 110 Resp 18 Wt 101.6 kg (224 lb) BMI 36.15 kg/m General Appearance: Well appearing, alert, in no acute distress, well-hydrated, well nourished.. Lungs: Lungs clear to auscultation. No wheezing, rhonchi, rales.. Heart: RRR without murmur, gallop, or rubs. No ectopy. Health Maintenance List Hepatitis B Vaccine(1 of 3 - Risk 3-dose series) Never done Dilated Retinal Exam due on 10/15/2022 Covid-19 Vaccine( - 2022- season) due on 10/23/2022 Influenza Vaccine(1) due on 08/22/2023 DTaP,Tdap,Td Vaccine(1 - Tdap) due on 11/05/2023 Shingrix Vaccine(1 of 2) due on 11/05/2023 HbA1C due on 04/03/2023 Urine Albumin:Creatinine Ratio due on 10/02/2023 LDL Cholesterol due on 10/02/2023 Diabetic Foot Exam due on 11/05/2023 Annual PCP Team Chronic Disease Visit due on 11/05/2023 BP Controlled (<130/80) due on 11/05/2023 Colorectal Cancer Screening due on 11/15/2024 Abdominal Aortic Aneurysm Screening Completed Advance Directive Discussion Completed Hepatitis C Screening Completed Pneumococcal Vaccine: 65+ Completed Alpha-1 Antitrypsin Deficiency Screening Discontinued Spirometry Discontinued ASSESSMENT/PLAN: 1. Encounter for immunization - ICD9: V03.89, ICD10: Z23 (primary diagnosis) - INFLUENZA VACCINE, PRSV FREE, AGE 65+ YR, HIGH DOSE, QUADRIVALENT (FLUZONE HIGH-DOSE) 2. Essential hypertension - ICD9: 401.9, ICD10: I10 - Controlled - Continue current medications - Recommend home blood pressure monitoring, to bring results to next visit - Encouraged sodium restriction, DASH or Mediterranean diet - Recommend regular aerobic exercise I have personally seen and examined the patient and performed the medical- decision making components. I have reviewed the Advanced Practice Registered Nurse (DIRECTOR OF SCIENCE) student's documentation and verified the findings in the note as written. Any additions or changes are noted in bold/italics. Shawnee Belle APRN.CLEANING AND MAINTENANCE WORKER documented in this encounterPar[facility]10-06-2023 Miscellaneous Notes* Telephone Encounter - Octavia Martínez LPN - 11/27/2022 10:31 AM EDT [facility] 11/04/22 Follow up scheduled 12/03/22 * Telephone Encounter - Samantha Beverly - 11/27/2022 9:50 AM EDT Patient has been identified by name and date of : Yes Requested Prescriptions Pending Prescriptions Disp Refills Ferrous Sulfate (SLOW FE) 142 mg (45 mg iron) TbER 90 tablet 1 Sig: Take 1 tablet by mouth once daily. lisinopril (ZESTRIL) 10 mg tablet 90 tablet 1 Sig: Take 1 tablet by mouth once daily. empagliflozin (JARDIANCE) 25 mg tablet 90 tablet 1 Sig: Take 1 tablet by mouth daily with breakfast. RX INSTRUCTIONS: Patient aware RX will be sent to pharmacy. No need to notify patient. Samantha Beverly documented in this encounterParma [facility]09-13-2023 Instructions* Patient Instructions* Jorden Hartmann MD - 11/04/2022 2:41 PM EDT Please bring in copies of your power of director of reimbursement for health care and living will. Consider getting the shingrix vaccine for the prevention of shingles from a local pharmacy I changed your Tradjenta 5 mg to Junvia 100 mg once a day. Please take the lisinopril 10 mg one every day. I changed the metoprolol 50 mg to 25 mg and take it once a day. documented in this encounterParma [facility]09-13-2023 History of Present illness Narrative* Jorden Hartmann MD - 11/04/2022 2:20 PM EDT Images from the original note were not included. Chief Complaint No chief complaint on file. HPI Victor Hugo Sheth is a 72 year old male who presents here today for 6 month follow up Patient with hx of DM 2, CAD, CHF, COPD, depression,GERD, ischemic cardiomyopathy, Hyperlipidemia, smoker, obesity as well as those reviewed and addressed below and in ROS Last with visit Miah Luo was back on 05/2021 for diabetes. A1C - 7.5 10/01/2022 up from 7.1 02/2022 FBS: 110 Last Eye visit was 10/24/2021 - Isra ruffin - Recent eye visit? A few weeks ago Patient started taking lisinopril and metoprolol every other day. Patient indicated that he just didn't feel right, felt fatigue. Patient has also not been using Advair inhaler regularly. Past medical history, appointments, medications, allergies reviewed. Previous Medical History PAST MEDICAL HISTORY Diagnosis Date Advance directive discussed with patient 10/22/2021 Discussed 09/2021 Arthritis of both knees 12/12/2019 CAD (coronary artery disease), [place] coronary artery 05/14/[address] Khalil [facility] 05/14/[address] [facility] report from [facility], showed 85% stenosis in pLAD followed by 95% stenosis and 50-75% stenosis in mid LAD. Minimal disease in LCx and LCA. RCA withproximal and distal 25% stenosis. [facility] 05/17 s/p YESENIA x2 to LAD Plan: Dc home with follow-up Continue Plavix Carpal tunnel syndrome of right wrist 10/27/2013 EMG/NCT 10/27/13=mild right CTS Combined forms of age-related cataract of both eyes 06/15/2016 Combined forms of age-related cataract, bilateral 06/15/2016 Congestive heart failure (HCC) 03/13/2015 COPD with chronic bronchitis (HCC) 03/13/2015 Corneal scar, right eye 07/18/2020 DDD (degenerative disc disease), cervical DDD (degenerative disc disease), lumbar 12/07/2019 Depression with anxiety Diabetic eye exam ([facility]) 05/15/2015 Last done 06/27/2018: no retinopathy. Dry eye syndrome of both eyes 07/18/2020 Elevated PSA 01/26/2019 Essential hypertension 09/19/2018 Gastroesophageal reflux disease without esophagitis 03/13/2015 History of compression fracture of spine 1971 high school football Iron deficiency anemia 09/26/2019 Iron deficiency anemia 09/26/2019 EGD and colonoscopy done 10/2019 Ischemic cardiomyopathy 05/25/2014 Leukocytosis 09/19/2018 Repeat 10/2018 ok Living will in place 10/22/2021 DPA: Jon (son) Medicare annual wellness visit, initial 11/17/2017 Medicare Part B: 12/23/2016 last done: 01/26/2019 Does not want ELMO or colonoscopy Mixed hyperlipidemia 09/13/2012 Neck pain 10/04/2013 Obesity, Class II, BMI 35-39.9 05/13/2017 Presence of drug coated stent in LAD coronary artery 05/25/2014 Smoker 03/13/2015 Started at 20 yo up to 2 PPD. as of 02/2015 only 5 cigs a day Tachycardia 10/30/2014 Thrombocytosis 09/19/2018 Repeat 10/2018 ok Type 2 diabetes mellitus with diabetic neuropathy, without long-term current use of insulin (HCC) 11/20/2015 Type 2 diabetes mellitus without retinopathy (HCC) 10/12/2014 Vitreous floaters of both eyes 10/12/2014 Previous Surgical History PAST SURGICAL HISTORY Procedure Laterality Date COLONOSCOPY FLX DX W/COLLJ SPEC WHEN PFRMD 11/16/2019 Colonoscopy ESOPHAGOGASTRODUODENOSCOPY TRANSORAL DIAGNOSTIC 11/16/2019 EGD FECAL OCCULT BLOOD TEST 03/08/2019 negative HEART CATHETERIZATION 05/14/14 triple vessel disease, YESENIA x 2 to the prox and mid LAD PAST SURGICAL HISTORY OF 1970 vertebral fracture in football? no repair. REPAIR FINGER TENDON left hand- cut tendons with chain saw TONSILLECTOMY & ADENOIDECTOMY AGE 14/> 1982 TONSILLECTOMY HX Family History FAMILY HISTORY Problem Relation Age of Onset Emphysema Father Coronary Artery Disease Brother CABG Hypertension Brother Prostate Cancer Brother Patient Allergies ALLERGIES Allergen Reactions Rybelsus [Semagluti* Diarrhea Current Medications Current Outpatient Medications on File Prior to Visit Medication Sig metoprolol succinate ER (TOPROL XL) 50 mg 24 hr tablet Take 1 tablet by mouth once daily. metFORMIN (GLUCOPHAGE) 1,000 mg tablet Take 1 tablet by mouth twice daily with meals. lisinopril (ZESTRIL, PRINIVIL) 10 mg tablet Take 1 tablet by mouth once daily. linaGLIPtin (TRADJENTA) 5 mg tab Take 1 tablet by mouth once daily. glimepiride (AMARYL) 4 mg tablet Take 1 tablet by mouth twice daily with meals. Ferrous Sulfate (SLOW FE) 142 mg (45 mg iron) TbER Take 1 tablet by mouth once daily. empagliflozin (JARDIANCE) 25 mg tablet Take 1 tablet by mouth daily with breakfast. clopidogrel (PLAVIX) 75 mg tablet Take 1 tablet by mouth once daily. atorvastatin (LIPITOR) 80 mg tablet Take 1 tablet by mouth daily at bedtime. blood sugar diagnostic (BLOOD GLUCOSE TEST) test strip Test blood sugar(s) 2 times daily. Dx: OtherDM Code E11.42 Insulin: No fluticasone-salmeterol (ADVAIR DISKUS) 100-50 mcg/dose inhaler Inhale 1 Puff as instructed twice daily. albuterol HFA (PROVENTIL HFA, VENTOLIN HFA) 90 mcg/actuation inhaler Inhale 2 Puffs as instructed every 4 hours as needed. Lancets lancets Test blood sugar(s) 2 times daily. Dx: Other DM Code E11.42 Insulin: No Blood-Glucose Meter Test Blood Sugars 2 times daily Dx E11.42 Insulin: No flash glucose sensor (FREESTYLE ADRIAN 10 DAY SENSOR) kit 1 Each one time a week. Check blood sugar twice a day flash glucose scanning reader (FREESTYLE ADRIAN 10 DAY READER) 1 Device twice daily. Check blood sugar twice a day No current facility-administered medications on file prior to visit. Social History Social History Tobacco Use Smoking status: Every Day Packs/day: 0.30 Years: 40.00 Additional pack years: 0.00 Total pack years: 12.00 Types: Cigarettes Smokeless tobacco: Never Tobacco comments: started smoking 20yo, usually 4 cigarettes per day Vaping Use Vaping Use: Never used Substance Use Topics Alcohol use: Yes Comment: few drinks per year Drug use: No Review of Symptoms REVIEW OF SYSTEMS GENERAL: No weight loss, malaise or fevers NECK: Negative for lumps, goiter, pain and significant neck swelling RESPIRATORY: Negative for cough, hemoptysis, increased wheezing, COPD, dyspnea or shortness of breath CARDIOVASCULAR: Negative for chest pain, leg swelling, hypertension, CHF or palpitations GI: No nausea, vomiting, or diarrhea and No heartburn or reflux symptoms : No history of dysuria, frequency or blood ENDOCRINE: Negative for symptoms of low BS;s NEURO: No history of headaches, syncope, paralysis, seizures or tremors EXAM: BP 128/78 (BP Site: Left Arm, BP Position: Sitting, BP Cuff Size: Large Adult) Pulse 86 Resp 18 Wt 102.5 kg (226 lb) BMI 36.48 kg/m Last 5 Encounter Wt Readings: Date: Wt: 11/04/2022 102.5 kg (226 lb) 04/01/2022 99.8 kg (220 lb) 10/22/2021 95.7 kg (211 lb) 04/16/2021 103 kg (227 lb) 12/18/2020 102.1 kg (225 lb 1.9 oz) General Appearance: Well appearing, alert, in no acute distress, well-hydrated, well nourished. Obese Eyes: Anicteric sclera. Pupils are equally round and reactive to light. Extraocular movements are intact. . Neck: Supple, no adenopathy; thyroid symmetric, normal size, no bruits. Lungs: Lungs clear to auscultation. No rhonchi, rales. Some wheezing in the bases.. Heart: RRR without murmur, gallop, or rubs. No ectopy. Abdomen: Normal abdominal exam, Abdomen soft, non-tender. Bowel sounds normal. No masses, organomegaly. Extremities: No deformities, edema, skin discoloration, clubbing or cyanosis. Good capillary refill. . Peripheral Pulses: Normal. Neurologic: Gait normal. Sensation to light touch and crainal nerves 2-12 intact.. Diabetic Foot Exam: Feet: Shoes and socks removed, normal distal pulses, non-sensitive to microfilament on the right toes, vibratory exam within normal limits, and calluses noted bilaterally Skin: warm, dry, and normal hair growth Vascular Pulses: Normal SEMMES-CATY MONOFILAMENT TESTING Left Foot Right Foot Dorsal Surface Intact Dorsal Surface Intact Plantar Surface Intact Plantar Surface Absent just on big and small toes Health Maintenance List Shingrix Vaccine(1 of 2) Never done DTaP,Tdap,Td Vaccine(1 - Tdap) due on 08/24/2012 BP Controlled (<130/80) due on 10/22/2022 Dilated Retinal Exam due on 10/15/2022 Diabetic Foot Exam due on 10/22/2022 Influenza Vaccine(1) due on 10/23/2022 Covid-19 Vaccine(3 - Moderna series) due on 04/01/2023 Annual PCP Team Chronic Disease Visit due on 04/01/2023 HbA1C due on 04/03/2023 Urine Albumin:Creatinine Ratio due on 10/02/2023 LDL Cholesterol due on 10/02/2023 Colorectal Cancer Screening due on 11/15/2024 Abdominal Aortic Aneurysm Screening Completed Advance Directive Discussion Completed Hepatitis C Screening Completed Pneumococcal Vaccine: 65+ Completed Alpha-1 Antitrypsin Deficiency Screening Discontinued Spirometry Discontinued Data reviewed Component Latest Ref Rng & Units 03/17/2022 10/01/2022 WBC 3.70 - 11.00 k/uL 7.98 10.92 RBC 4.20 - 6.00 m/uL 5.98 5.45 Hemoglobin 13.0 - 17.0 g/dL 17.5 (H) 16.0 Hematocrit 39.0 - 51.0 % 52.9 (H) 48.6 MCV 80.0 - 100.0 fL 88.5 89.2 MCH 26.0 - 34.0 pg 29.3 29.4 MCHC 30.5 - 36.0 g/dL 33.1 32.9 RDW-CV 11.5 - 15.0 % 13.7 14.3 Platelet Count 150 - 400 k/uL 326 335 MPV 9.0 - 12.7 fL 9.2 9.1 Neut% % 59.1 58.0 Abs Neut (ANC) 1.45 - 7.50 k/uL 4.72 6.33 Lymph% % 25.7 28.0 Abs Lymph 1.00 - 4.00 k/uL 2.05 3.06 [place]% % 9.6 8.4 Abs [place] <0.87 k/uL 0.77 0.92 (H) Eosin% % 4.9 4.9 Abs Eosin <0.46 k/uL 0.39 0.54 (H) Baso% % 0.4 0.4 Abs Baso <0.11 k/uL 0.03 0.04 Immature Gran % % 0.3 0.3 IMMATURE GRANS (ABS) <0.10 k/uL <0.03 0.03 NRBC /100 WBC 0.0 0.0 Absolute nRBC <0.01 k/uL <0.01 <0.01 DTYPE Auto Auto Protein, Total 6.3 - 8.0 g/dL 6.9 Albumin 3.9 - 4.9 g/dL 4.4 Calcium 8.5 - 10.2 mg/dL 9.2 Bilirubin, Total 0.2 - 1.3 mg/dL 0.3 Alkaline Phosphatase 38 - 113 U/L 106 AST 14 - 40 U/L 19 ALT 10 - 54 U/L 19 Glucose 74 - 99 mg/dL 137 (H) BUN 9 - 24 mg/dL 27 (H) Creatinine 0.73 - 1.22 mg/dL 1.28 (H) Sodium 136 - 144 mmol/L 135 (L) Potassium 3.7 - 5.1 mmol/L 4.5 Chloride 97 - 105 mmol/L 103 CO2 22 - 30 mmol/L 21 (L) Anion Gap 9 - 18 mmol/L 11 eGFR >=60 mL/min/1.73m 60 Color Yellow Light Yellow Clarity Clear Clear Glucose, Urine Trace, Negative 4+ (A) Bilirubin, Urine Negative Negative Ketones, Urine Trace, Negative Trace Specific [place], Ur 1.005 - 1.030 1.027 Hemoglobin/Blood,Ur Negative, Trace Negative pH, Urine 5.0 - 8.0 6.0 Protein, Urine Trace, Negative Negative Urobilinogen Negative Negative Nitrites Negative Negative Leukest Negative, 25 Krishna/uL Negative WBC, Urine 0-5 /HPF 0-5 /HPF RBC, Urine 0-3 /HPF 0-3 /HPF Total Cholesterol, Nonfasting <200 mg/dL 159 113 Triglycerides, Nonfasting <150 mg/dL 237 (H) 363 (H) HDL Cholesterol, Nonfasting >39 mg/dL 38 (L) 26 (L) LDL Cholesterol, Nonfasting <100 mg/dL 74 14 Non HDL Cholesterol, Nonfasting <130 mg/dL 121 87 VLDL Cholesterol, Nonfasting <30 mg/dL 47 (H) 73 (H) Total Chol/HDL Ratio, Nonfasting <5.10 mg/dL 4.18 4.35 LDL/HDL Ratio, Nonfasting <2.54 mg/dL 1.95 0.54 Creatinine, Ur Random (UCRR) 20.0 - 300.0 mg/dL 95.0 Albumin, Urine Random mg/L <12.0 Albumin/Creat Ratio <30 mg/g <13 Iron 41 - 186 ug/dL 46 TIBC 232 - 386 ug/dL 371 Transferrin Saturation 15.0 - 57.0 % 12.4 (L) Hemoglobin A1C 4.3 - 5.6 % 7.1 (H) 7.5 (H) Estimated Average Glucose mg/dL 157 169 PSA <2.60 ng/mL 3.18 (H) 4.00 (H) PSA, Percent Free % 18 19 A/P ASSESSMENT/PLAN: 1. Uncontrolled type 2 diabetes mellitus with hyperglycemia (HCC) - ICD9: 250.02, ICD10: E11.65 (primary diagnosis) - Uncontrolled - Worsening control - Continue current medications - Stop linagliptin (Tradjenta), will start Januvia 100 mg a day - Counseled on healthy diet and regular exercise - Discussed need for and benefit of weight loss. BMI 36.48 kg/(m^2) 2. Type 2 diabetes mellitus without retinopathy (HCC) - ICD9: 250.00, ICD10: E11.9 - see above 3. Type 2 diabetes mellitus with diabetic neuropathy, without long-term current use of insulin (HCC) - ICD9: 250.60, 357.2, ICD10: E11.40 - as above 4. Diabetic eye exam ([facility]) - ICD9: V72.0, 250.00, ICD10: Z01.00, E11.9 - will get most recent report. 5. Essential hypertension - ICD9: 401.9, ICD10: I10 - Controlled - Continue current medications: will decrease the metoprolol to 25 mg a day and have him take the lisinopril 10 mg daily. - Recommend home blood pressure monitoring, to bring results to next visit - Encouraged sodium restriction, DASH or Mediterranean diet - Recommend regular aerobic exercise 6. Mixed hyperlipidemia - ICD9: 272.2, ICD10: E78.2 - Controlled - Continue current medications - Counseled on healthy diet and regular exercise 7. Coronary artery disease involving [place] coronary artery of [place] heart without angina pectoris- ICD9: 414.01, ICD10: I25.10 - clinically stable cont current Tx. 8. Congestive heart failure, unspecified HF chronicity, unspecified heart failure type (HCC) - ICD9: 428.0, ICD10: I50.9 - as per #7 9. Ischemic cardiomyopathy - ICD9: 414.8, ICD10: I25.5 - as per #7 10. Gastroesophageal reflux disease without esophagitis - ICD9: 530.81, ICD10: K21.9 - managed with diet. 11. Iron deficiency anemia, unspecified iron deficiency anemia type - ICD9: 280.9, ICD10: D50.9 - cont iron 12. COPD with chronic bronchitis ([facility]) - ICD9: 491.20, ICD10: J44.9 - advised trying to take his inhaler daily. 13. Depression with anxiety - ICD9: 300.4, ICD10: F41.8 - patient not wanted Tx. 14. Obesity, Class II, BMI 35-39.9 - ICD9: 278.00, ICD10: E66.9 - weight increased. Patient to work on weight loss. 15. Smoker - ICD9: 305.1, ICD10: F17.200 - Cessation encouraged. - Counseling was given focusing on the harmful effects of this addiction especially given the patient's medical condition(s) which will be worsened because of the chemicals in tobacco. 16. Elevated PSA - ICD9: 790.93, ICD10: R97.20 - stable will monitor. F/u in a month HTN check F/u 6 months extensive labs prior Jorden Hartmann MD documented in this encounterPar[facility]08-22-2023 Miscellaneous Notes* Telephone Encounter - Jennifer Ferraro MA - 10/13/2022 9:12 AM EDT Left additional message to help rescheduled Medicare wellness exam. Jennifer Ferraro MA * Telephone Encounter - Laura Nina - 10/12/2022 9:27 AM EDT Called pt to schedule Wellness, LVM * Telephone Encounter - Michelle Crystal RN - 10/09/2022 9:26 AM EDT Called and left a voicemail for the Patient to call back and ask for scheduling to set up medicare wellness appointment. Michelle Crystal, RN * Telephone Encounter - Jorden Hartmann MD - 10/08/2022 9:46 PM EDT Patient's medicare wellness exam from 10/07/2022 needs rescheduled. Was cancelled due to my absence. documented in this encounterPar[facility]02-08-2023 Instructions* Patient Instructions* Jorden Hartmann MD - 04/01/2022 6:46 PM EST Please get labs and urine test done on or after 09/18/2022 prior to your next visit. documented in this encounterParma [facility]02-08-2023 History of Present illness Narrative* Jorden Hartmann MD - 04/01/2022 5:56 PM EST Chief Complaint Patient presents with: F/U 6 months HPI Victor Hugo Sheth is a 72 year old male who presents here today for 6 month follow up. Patient with hx of DM 2, CAD, CHF, COPD, depression,GERD, ischemic cardiomyopathy, Hyperlipidemia, smoker, obesity as well as those reviewed and addressed below and in ROS Patient has been doing well. He had been working hard on diet and weight loss but Stewart with the grand kids changed this some.. Continues to smoke. No new issues or concerns. Past medical history, appointments, medications, allergies reviewed. Previous Medical History PAST MEDICAL HISTORY Diagnosis Date Advance directive discussed with patient 10/22/2021 Discussed 09/2021 Arthritis of both knees 12/12/2019 CAD (coronary artery disease), [place] coronary artery 05/14/[address] Khalil [facility] 05/14/[address] [facility] report from [facility], showed 85% stenosis in pLAD followed by 95% stenosis and 50-75% stenosis in mid LAD. Minimal disease in LCx and LCA. RCA withproximal and distal 25% stenosis. [facility] 05/17 s/p YESENIA x2 to LAD Plan: Dc home with follow-up Continue Plavix Carpal tunnel syndrome of right wrist 10/27/2013 EMG/NCT 10/27/13=mild right CTS Combined forms of age-related cataract of both eyes 06/15/2016 Combined forms of age-related cataract, bilateral 06/15/2016 Congestive heart failure (HCC) 03/13/2015 COPD with chronic bronchitis (HCC) 03/13/2015 Corneal scar, right eye 07/18/2020 DDD (degenerative disc disease), cervical DDD (degenerative disc disease), lumbar 12/07/2019 Depression with anxiety Diabetic eye exam (HCC) 05/15/2015 Last done 06/27/2018: no retinopathy. Dry eye syndrome of both eyes 07/18/2020 Elevated PSA 01/26/2019 Essential hypertension 09/19/2018 Gastroesophageal reflux disease without esophagitis 03/13/2015 History of compression fracture of spine 1971 [employer] football Iron deficiency anemia 09/26/2019 Iron deficiency anemia 09/26/2019 EGD and colonoscopy done 10/2019 Ischemic cardiomyopathy 05/25/2014 Leukocytosis 09/19/2018 Repeat 10/2018 [address] will in place 10/22/2021 DPA: Jon (son) Medicare annual wellness visit, initial 11/17/2017 Medicare Part B: 12/23/2016 last done: 01/26/2019 Does not want ELMO or colonoscopy Mixed hyperlipidemia 09/13/2012 Neck pain 10/04/2013 Obesity, Class II, BMI 35-39.9 05/13/2017 Presence of drug coated stent in LAD coronary artery 05/25/2014 Smoker 03/13/2015 Started at 20 yo up to 2 PPD. as of 02/2015 only 5 cigs a day Tachycardia 10/30/2014 Thrombocytosis 09/19/2018 Repeat 10/2018 ok Type 2 diabetes mellitus with diabetic neuropathy, without long-term current use of insulin (HCC) 11/20/2015 Type 2 diabetes mellitus without retinopathy (HCC) 10/12/2014 Vitreous floaters of both eyes 10/12/2014 Previous Surgical History PAST SURGICAL HISTORY Procedure Laterality Date COLONOSCOPY FLX DX W/COLLJ SPEC WHEN PFRMD 11/16/2019 Colonoscopy ESOPHAGOGASTRODUODENOSCOPY TRANSORAL DIAGNOSTIC 11/16/2019 EGD FECAL OCCULT BLOOD TEST 03/08/2019 negative HEART CATHETERIZATION 05/14/14 triple vessel disease, YESENIA x 2 to the prox and mid LAD PAST SURGICAL HISTORY OF 1970 vertebral fracture in football? no repair. REPAIR FINGER TENDON left hand- cut tendons with chain saw TONSILLECTOMY & ADENOIDECTOMY AGE 14/> 1982 TONSILLECTOMY HX Family History FAMILY HISTORY Problem Relation Age of Onset Emphysema Father Coronary Artery Disease Brother CABG Hypertension Brother Prostate Cancer Brother Patient Allergies ALLERGIES Allergen Reactions Rybelsus [Semagluti* Diarrhea Current Medications Current Outpatient Medications on File Prior to Visit Medication Sig metoprolol succinate ER (TOPROL XL) 50 mg 24 hr tablet Take 1 tablet by mouth once daily. metFORMIN (GLUCOPHAGE) 1,000 mg tablet Take 1 tablet by mouth twice daily with meals. lisinopril (ZESTRIL, PRINIVIL) 10 mg tablet Take 1 tablet by mouth once daily. linaGLIPtin (TRADJENTA) 5 mg tab Take 1 tablet by mouth once daily. glimepiride (AMARYL) 4 mg tablet Take 1 tablet by mouth twice daily with meals. Ferrous Sulfate (SLOW FE) 142 mg (45 mg iron) TbER Take 1 tablet by mouth once daily. empagliflozin (JARDIANCE) 25 mg tablet Take 1 tablet by mouth daily with breakfast. clopidogrel (PLAVIX) 75 mg tablet Take 1 tablet by mouth once daily. atorvastatin (LIPITOR) 80 mg tablet Take 1 tablet by mouth daily at bedtime. fluticasone-salmeterol (ADVAIR DISKUS) 100-50 mcg/dose inhaler Inhale 1 Puff as instructed twice daily. albuterol HFA (PROVENTIL HFA, VENTOLIN HFA) 90 mcg/actuation inhaler Inhale 2 Puffs as instructed every 4 hours as needed. blood sugar diagnostic (BLOOD GLUCOSE TEST) test strip Test blood sugar(s) 2 times daily. Dx: OtherDM Code E11.42 Insulin: No Lancets lancets Test blood sugar(s) 2 times daily. Dx: Other DM Code E11.42 Insulin: No Blood-Glucose Meter Test Blood Sugars 2 times daily Dx E11.42 Insulin: No flash glucose sensor (FREESTYLE ADRIAN 10 DAY SENSOR) kit 1 Each one time a week. Check blood sugar twice a day flash glucose scanning reader (FREESTYLE ADRIAN 10 DAY READER) 1 Device twice daily. Check blood sugar twice a day aspirin, enteric coated (ASPIRIN, ENTERIC COATED) 81 mg EC tablet Take 1 tablet by mouth once daily. (Patient not taking: Reported on 10/22/2021) No current facility-administered medications on file prior to visit. Social History Social History Tobacco Use Smoking status: Every Day Packs/day: 0.30 Years: 40.00 Pack years: 12.00 Types: Cigarettes Smokeless tobacco: Never Tobacco comments: started smoking 20yo, usually 4 cigarettes per day Vaping Use Vaping Use: Never used Substance Use Topics Alcohol use: Yes Comment: few drinks per year Drug use: No Review of Symptoms REVIEW OF SYSTEMS GENERAL: No weight loss, malaise or fevers NECK: Negative for lumps, goiter, pain and significant neck swelling RESPIRATORY: Negative for cough, hemoptysis, wheezing, COPD, dyspnea or shortness of breath CARDIOVASCULAR: Negative for chest pain, leg swelling, hypertension, CHF or palpitations GI: No nausea, vomiting, or diarrhea and No heartburn or reflux symptoms : No history of dysuria, blood ENDOCRINE: Negative for symptoms of low BS's NEURO: No history of headaches, syncope, paralysis, seizures or tremors EXAM: BP 122/88 (BP Site: Right Arm, BP Position: Sitting, BP Cuff Size: Large Adult) Pulse 84 Resp 18 Wt 99.8 kg (220 lb) BMI 35.51 kg/m Last 5 Encounter Wt Readings: Date: Wt: 04/01/2022 99.8 kg (220 lb) 10/22/2021 95.7 kg (211 lb) 04/16/2021 103 kg (227 lb) 12/18/2020 102.1 kg (225 lb 1.9 oz) 04/10/2020 108.9 kg (240 lb) General Appearance: Well appearing, alert, in no acute distress, well-hydrated, well nourished. andObese. Eyes: Anicteric sclera. Pupils are equally round and reactive to light. Extraocular movements are intact. . Neck: Supple, no adenopathy; thyroid symmetric, normal size, no bruits. Lungs: Lungs clear to auscultation. No wheezing, rhonchi, rales.. Heart: RRR without murmur, gallop, or rubs. No ectopy. Abdomen: Normal abdominal exam, Abdomen soft, non-tender. Bowel sounds normal. No masses, organomegaly. Extremities: No deformities, edema, skin discoloration, Good capillary refill. . Musculoskeletal: Muscular strength intact, No joint swelling, deformity, or tenderness. Peripheral Pulses: Normal. Neurologic: Gait normal. Sensation to light touch and crainal nerves 2-12 intact.. Health Maintenance List COVID-19 VACCINE(3 - Booster for Moderna series) due on 07/17/2020 INFLUENZA(1) due on 10/23/2021 ADVANCE DIRECTIVE DISCUSSION due on 02/22/2022 DTAP,TDAP,TD(1 - Tdap) due on 10/22/2022 SHINGRIX VACCINE(1 of 2) due on 10/22/2022 HBA1C due on 09/14/2022 URINE ALBUMIN:CREATININE RATIO due on 10/09/2022 DILATED RETINAL EXAM due on 10/15/2022 DIABETIC FOOT EXAM due on 10/22/2022 ANNUAL PCP TEAM CHRONIC DISEASE VISIT due on 10/22/2022 BP CONTROLLED (<130/80) due on 10/22/2022 LDL CHOLESTEROL due on 03/17/2023 COLORECTAL CANCER SCREENING due on 11/15/2024 ABDOMINAL AORTIC ANEURYSM SCREENING Completed HEPATITIS C SCREENING Completed PNEUMOCOCCAL: 65+ Completed ALPHA-1 ANTITRYPSIN DEFICIENCY SCREENING Discontinued SPIROMETRY Discontinued Data reviewed Component Latest Ref Rng & Units 10/09/2021 03/17/2022 WBC 3.70 - 11.00 k/uL 10.88 7.98 RBC 4.20 - 6.00 m/uL 5.80 5.98 Hemoglobin 13.0 - 17.0 g/dL 17.1 (H) 17.5 (H) Hematocrit 39.0 - 51.0 % 52.3 (H) 52.9 (H) MCV 80.0 - 100.0 fL 90.2 88.5 MCH 26.0 - 34.0 pg 29.5 29.3 MCHC 30.5 - 36.0 g/dL 32.7 33.1 RDW-CV 11.5 - 15.0 % 14.2 13.7 Platelet Count 150 - 400 k/uL 349 326 MPV 9.0 - 12.7 fL 9.1 9.2 Neut% % 62.6 59.1 Abs Neut (ANC) 1.45 - 7.50 k/uL 6.81 4.72 Lymph% % 24.6 25.7 Abs Lymph 1.00 - 4.00 k/uL 2.68 2.05 [place]% % 7.0 9.6 Abs [place] <0.87 k/uL 0.76 0.77 Eosin% % 5.1 4.9 Abs Eosin <0.46 k/uL 0.56 (H) 0.39 Baso% % 0.4 0.4 Abs Baso <0.11 k/uL 0.04 0.03 Immature Gran % % 0.3 0.3 IMMATURE GRANS (ABS) <0.10 k/uL 0.03 <0.03 NRBC /100 WBC 0.0 0.0 Absolute nRBC <0.01 k/uL <0.01 <0.01 DTYPE Auto Auto Protein, Total 6.3 - 8.0 g/dL 6.6 Albumin 3.9 - 4.9 g/dL 4.5 Calcium 8.5 - 10.2 mg/dL 8.8 Bilirubin, Total 0.2 - 1.3 mg/dL 0.2 Alkaline Phosphatase 38 - 113 U/L 128 (H) AST 14 - 40 U/L 17 ALT 10 - 54 U/L 22 Glucose 74 - 99 mg/dL 144 (H) BUN 9 - 24 mg/dL 22 Creatinine 0.73 - 1.22 mg/dL 0.89 Sodium 136 - 144 mmol/L 137 Potassium 3.7 - 5.1 mmol/L 4.7 Chloride 97 - 105 mmol/L 104 CO2 22 - 30 mmol/L 21 (L) Anion Gap 9 - 18 mmol/L 12 eGFR >=60 mL/min/1.73m 93 Color Yellow Light Yellow Clarity Clear Clear Glucose, Urine Negative 3+ (A) Bilirubin, Urine Negative Negative Ketones, Urine Negative Negative Specific [place], Ur 1.005 - 1.030 1.023 Hemoglobin/Blood,Ur Negative Negative pH, Urine 5.0 - 8.0 6.0 Protein, Urine Negative Negative Urobilinogen Negative Negative Nitrites Negative Negative Leukest Negative Negative WBC, Urine 0-5 /HPF 0-5 /HPF RBC, Urine 0-3 /HPF 0-3 /HPF Total Cholesterol, Nonfasting <200 mg/dL 108 159 Triglycerides, Nonfasting <150 mg/dL 91 237 (H) HDL Cholesterol, Nonfasting >39 mg/dL 35 (L) 38 (L) LDL Cholesterol, Nonfasting <100 mg/dL 55 74 Non HDL Cholesterol, Nonfasting <130 mg/dL 73 121 VLDL Cholesterol, Nonfasting <30 mg/dL 18 47 (H) Total Chol/HDL Ratio, Nonfasting <5.10 mg/dL 3.09 4.18 LDL/HDL Ratio, Nonfasting <2.54 mg/dL 1.57 1.95 Creatinine, Ur Random (UCRR) 20.0 - 300.0 mg/dL 51.8 Albumin, Urine Random mg/L <12.0 Albumin/Creat Ratio <30 mg/g <23 Iron 41 - 186 ug/dL 58 TIBC 232 - 386 ug/dL 381 Transferrin Saturation 15.0 - 57.0 % 15.2 Hemoglobin A1C 4.3 - 5.6 % 7.0 (H) 7.1 (H) Estimated Average Glucose mg/dL 154 157 PSA <2.60 ng/mL 3.35 (H) 3.18 (H) PSA, Percent Free % 16 18 A/P ASSESSMENT/PLAN: 1. Uncontrolled type 2 diabetes mellitus with hyperglycemia (HCC) - ICD9: 250.02, ICD10: E11.65 (primary diagnosis) uncontrolled worsening control - Continue current medications - Encouraged regular aerobic exercise and weight loss - Discussed diabetic education issues of diet and importance of exercise with patient. - BP goal of <130/80 - LDL goal of <100 2. Type 2 diabetes mellitus with diabetic neuropathy, without long-term current use of insulin (HCC) - ICD9: 250.60, 357.2, ICD10: E11.40 - as above 3. Type 2 diabetes mellitus without retinopathy (HCC) - ICD9: 250.00, ICD10: E11.9 - as above - BLOOD GLUCOSE TEST STRIPS 4. Diabetic eye exam ([facility]) - ICD9: V72.0, 250.00, ICD10: Z01.00, E11.9 - up to date 5. Essential hypertension - ICD9: 401.9, ICD10: I10 - good control - Continue current medication(s) - Recommended regular aerobic exercise. - Recommend home blood pressure monitoring, to bring results in on next visit - Goal of BP <130/80 6. Mixed hyperlipidemia - ICD9: 272.2, ICD10: E78.2 - good control - Encouraged following a low fat, low cholesterol diet. - Discussed the benefits of regular aerobic exercise and weight loss. - Encouraged following a low carbohydrate, healthy oil intake diet. - Continue current therapy. 7. Gastroesophageal reflux disease without esophagitis - ICD9: 530.81, ICD10: K21.9 - controlled with diet. 8. Coronary artery disease involving [place] coronary artery of [place] heart without angina pectoris- ICD9: 414.01, ICD10: I25.10 - clinically stable no changes and cont f/u with cardio 9. Congestive heart failure, unspecified HF chronicity, unspecified heart failure type (HCC) - ICD9: 428.0, ICD10: I50.9 - as per #8 10. Ischemic cardiomyopathy - ICD9: 414.8, ICD10: I25.5 - as per #8 11. COPD with chronic bronchitis (HCC) - ICD9: 491.20, ICD10: J44.9 - clinically stable - patient encouraged to quit smoking. 12. Depression with anxiety - ICD9: 300.4, ICD10: F41.8 - stable not needing medication. 13. Iron deficiency anemia, unspecified iron deficiency anemia type - ICD9: 280.9, ICD10: D50.9 Cont - SLOW FE 142 MG (45 MG IRON) TABLET,EXTENDED RELEASE 14. Smoker - ICD9: 305.1, ICD10: F17.200 - Cessation encouraged. - Counseling was given focusing on the harmful effects of this addiction especially given the patient's medical condition(s) which will be worsened because of the chemicals in tobacco. 15. Obesity, Class II, BMI 35-39.9 - ICD9: 278.00, ICD10: E66.9 Weight increasing - Behavioral intervention 16. Advance directive discussed with patient - ICD9: V65.49, ICD10: Z71.89 - patient to bring in copies. 17. Elevated PSA - ICD9: 790.93, ICD10: R97.20 - improved numbers. Will continue to monitor. Requested Prescriptions Signed Prescriptions Disp Refills metoprolol succinate ER (TOPROL XL) 50 mg 24 hr tablet 90 tablet 1 Sig: Take 1 tablet by mouth once daily. metFORMIN (GLUCOPHAGE) 1,000 mg tablet 180 tablet 1 Sig: Take 1 tablet by mouth twice daily with meals. lisinopril (ZESTRIL, PRINIVIL) 10 mg tablet 90 tablet 1 Sig: Take 1 tablet by mouth once daily. linaGLIPtin (TRADJENTA) 5 mg tab 90 tablet 1 Sig: Take 1 tablet by mouth once daily. glimepiride (AMARYL) 4 mg tablet 180 tablet 1 Sig: Take 1 tablet by mouth twice daily with meals. Ferrous Sulfate (SLOW FE) 142 mg (45 mg iron) TbER 90 tablet 1 Sig: Take 1 tablet by mouth once daily. empagliflozin (JARDIANCE) 25 mg tablet 90 tablet 1 Sig: Take 1 tablet by mouth daily with breakfast. clopidogrel (PLAVIX) 75 mg tablet 90 tablet 1 Sig: Take 1 tablet by mouth once daily. atorvastatin (LIPITOR) 80 mg tablet 90 tablet 1 Sig: Take 1 tablet by mouth daily at bedtime. blood sugar diagnostic (BLOOD GLUCOSE TEST) test strip 100 Strip 11 Sig: Test blood sugar(s) 2 times daily. Dx: Other DM Code E11.42 Insulin: No F/u 6 months extensive check CMP, Lipid, UA, , urine micro albumin, A1c, CBC, Free PSA, iron. Jorden Hartmann MD [facility] Instructions* Patient Instructions* Jorden Hartmann MD - 10/22/2021 4:56 PM EDT Consider getting the shingrix vaccine for the prevention of shingles from a local pharmacy Please get labs and urine test done on or after 04/10/2021 prior to your next visit. [facility] History of Present illness Narrative* Jorden Hartmann MD - 10/22/2021 4:34 PM EDT Images from the original note were not included. Medicare Yearly Visit Medical B eligibilty date 12/23/2016 Date of last exam 01/26/2019 PAST MEDICAL HISTORY PAST MEDICAL HISTORY Diagnosis Date CAD (coronary artery disease) 04/2014 CAD (coronary artery disease), [place] coronary artery 05/14/[address] Khalil [facility] 05/14/[address] [facility] report from [facility], showed 85% stenosis in pLAD followed by 95% stenosis and 50-75% stenosis in mid LAD. Minimal disease in LCx and LCA. RCA withproximal and distal 25% stenosis. [facility] 05/17 s/p YESENIA x2 to LAD Plan: Dc home with follow-up Continue Plavix Carpal tunnel syndrome of right wrist 10/27/2013 EMG/NCT 10/27/13=mild right CTS Combined form of senile cataract of both eyes 06/15/2016 Combined senile cataract 10/12/2014 Congestive heart failure (HCC) 03/13/2015 COPD with chronic bronchitis (HCC) 03/13/2015 DDD (degenerative disc disease), cervical Depression with anxiety Diabetes mellitus with neuropathy ([facility]) 08/2012 Gastroesophageal reflux disease without esophagitis 03/13/2015 GERD (gastroesophageal reflux disease) History of compression fracture of spine 1971 high school football Hyperlipidemia Ischemic cardiomyopathy 05/25/2014 Mixed hyperlipidemia 09/13/2012 Neck pain 10/04/2013 Obesity Presence of drug coated stent in LAD coronary artery 05/25/2014 Tachycardia 10/30/2014 Type 2 diabetes mellitus with diabetic neuropathy, without long-term current use of insulin (HCC) 11/20/2015 Type 2 diabetes mellitus without retinopathy (HCC) 10/12/2014 Uncontrolled type 2 diabetes mellitus with diabetic polyneuropathy, without long-term current use of insulin (HCC) 07/18/2015 Vitreous floaters of both eyes 10/12/2014 PAST SURGICAL HISTORY PAST SURGICAL HISTORY Procedure Laterality Date FECAL OCCULT BLOOD TEST 01/12/2017 negative HEART CATHETERIZATION 05/14/14 triple vessel disease, YESENIA x 2 to the prox and mid LAD PAST SURGICAL HISTORY OF 1971 vertebral fracture in football? no repair. REMOVE TONSILS/ADENOIDS,14+ Y/O 1981 REPAIR FINGER TENDON left hand- cut tendons with chain saw Patient has no known allergies. 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 He watches his diet for sodium, low fatand low cholesterol all of the time. List of current specialists seen: Optho End of Live Planning discussed including patients advanced directive wishes: Yes I am willing to follow Victor Hugo's advanced directives. Depression screen Depression Screening 12/29/2016 11/17/2017 05/13/2018 10/22/2021 PHQ-2 Score 0 0 0 0 PHQ-9 Score 8 - - - Depression screening tool completed and reviewed. Based on score and interview, patient is not at risk for depression. Screening tool discussed with patient, and I recommended no further interventionat this time. Functional Ability/Safety Screen 1. Was the patient's timed Up and Go test unsteady or longer than 30 seconds? No 2. Does the patient need help with the phone, transportation, shopping,preparing meals, housework, laundry, medications or managing money? No 3. Does your home have rugs in the hallway(Y), lack of grab bars in the bathroom, lack of handrailson the stairs or have poor lighting? No Hearing Evaluation: normal PHYSICAL EXAM BP 122/72 (BP Site: Right Arm, BP Position: Sitting, BP Cuff Size: Large Adult) Pulse 86 Resp 18 Ht 167.6 cm (5' 6) Wt 95.7 kg (211 lb) BMI 34.06 kg/m Alert and oriented X 3: YES Body mass index is 34.06kg/m . Seeing optho See below ASSESSMENT/PLAN: 71 year old male The following prevention plan was discussed during the office visit and provided to the patient: See below Jorden Hartmann MD Chief Complaint Patient presents with: Physical HPI Victor Hugo Sheth is a 71 year old male who presents here today for Physical. Patient with hx of DM 2, CAD, CHF, COPD, depression,GERD, ischemic cardiomyopathy, Hyperlipidemia, smoker, obesity as well as those reviewed and addressed below and in ROS Patient has bene ding well. Henriquez been working hard on diet and weight loss. Continues to smoke. Past medical history, appointments, medications, allergies reviewed. Previous Medical History PAST MEDICAL HISTORY Diagnosis Date Arthritis of both knees 12/12/2019 CAD (coronary artery disease), [place] coronary artery 05/14/[address] Khalil [facility] 05/14/[address] [facility] report from [facility], showed 85% stenosis in pLAD followed by 95% stenosis and 50-75% stenosis in mid LAD. Minimal disease in LCx and LCA. RCA withproximal and distal 25% stenosis. [facility] 05/17 s/p YESENIA x2 to LAD Plan: Dc home with follow-up Continue Plavix Carpal tunnel syndrome of right wrist 10/27/2013 EMG/NCT 10/27/13=mild right CTS Combined forms of age-related cataract of both eyes 06/15/2016 Combined forms of age-related cataract, bilateral 06/15/2016 Congestive heart failure (HCC) 03/13/2015 COPD with chronic bronchitis (HCC) 03/13/2015 DDD (degenerative disc disease), cervical DDD (degenerative disc disease), lumbar 12/07/2019 Depression with anxiety Diabetic eye exam (HCC) 05/15/2015 Last done 06/27/2018: no retinopathy. Elevated PSA 01/26/2019 Essential hypertension 09/19/2018 Gastroesophageal reflux disease without esophagitis 03/13/2015 History of compression fracture of spine 1971 high school football Iron deficiency anemia 09/26/2019 Iron deficiency anemia 09/26/2019 EGD and colonoscopy done 10/2019 Ischemic cardiomyopathy 05/25/2014 Leukocytosis 09/19/2018 Repeat 10/2018 ok Medicare annual wellness visit, initial 11/17/2017 Medicare Part B: 12/23/2016 last done: 01/26/2019 Does not want ELMO or colonoscopy Mixed hyperlipidemia 09/13/2012 Neck pain 10/04/2013 Obesity, Class II, BMI 35-39.9 05/13/2017 Presence of drug coated stent in LAD coronary artery 05/25/2014 Smoker 03/13/2015 Started at 20 yo up to 2 PPD. as of 02/2015 only 5 cigs a day Tachycardia 10/30/2014 Thrombocytosis 09/19/2018 Repeat 10/2018 ok Type 2 diabetes mellitus with diabetic neuropathy, without long-term current use of insulin (HCC) 11/20/2015 Type 2 diabetes mellitus without retinopathy ([facility]) 10/12/2014 Uncontrolled type 2 diabetes mellitus with diabetic polyneuropathy, without long-term current use of insulin ([facility]) 07/18/2015 Vitreous floaters of both eyes 10/12/2014 Previous Surgical History PAST SURGICAL HISTORY Procedure Laterality Date COLONOSCOPY FLX DX W/COLLJ SPEC WHEN PFRMD 11/16/2019 Colonoscopy ESOPHAGOGASTRODUODENOSCOPY TRANSORAL DIAGNOSTIC 11/16/2019 EGD FECAL OCCULT BLOOD TEST 03/08/2019 negative HEART CATHETERIZATION 05/14/14 triple vessel disease, YESENIA x 2 to the prox and mid LAD PAST SURGICAL HISTORY OF 1970 vertebral fracture in football? no repair. REPAIR FINGER TENDON left hand- cut tendons with chain saw TONSILLECTOMY & ADENOIDECTOMY AGE 14/> 1982 TONSILLECTOMY HX Family History FAMILY HISTORY Problem Relation Age of Onset Emphysema Father Coronary Artery Disease Brother CABG Hypertension Brother Prostate Cancer Brother Patient Allergies ALLERGIES Allergen Reactions Rybelsus [Semagluti* Diarrhea Current Medications Current Outpatient Medications on File Prior to Visit Medication Sig metoprolol succinate ER (TOPROL XL) 50 mg 24 hr tablet Take 1 tablet by mouth once daily. metFORMIN (GLUCOPHAGE) 1,000 mg tablet Take 1 tablet by mouth twice daily with meals. lisinopril (ZESTRIL, PRINIVIL) 10 mg tablet Take 1 tablet by mouth once daily. linaGLIPtin (TRADJENTA) 5 mg tab Take 1 tablet by mouth once daily. glimepiride (AMARYL) 4 mg tablet Take 1 tablet by mouth twice daily with meals. Ferrous Sulfate (SLOW FE) 142 mg (45 mg iron) TbER Take 1 tablet by mouth once daily. empagliflozin (JARDIANCE) 25 mg tablet Take 1 tablet by mouth daily with breakfast. clopidogrel (PLAVIX) 75 mg tablet Take 1 tablet by mouth once daily. atorvastatin (LIPITOR) 80 mg tablet Take 1 tablet by mouth daily at bedtime. fluticasone-salmeterol (ADVAIR DISKUS) 100-50 mcg/dose inhaler Inhale 1 Puff as instructed twice daily. albuterol HFA (PROVENTIL HFA, VENTOLIN HFA) 90 mcg/actuation inhaler Inhale 2 Puffs as instructed every 4 hours as needed. blood sugar diagnostic (BLOOD GLUCOSE TEST) test strip Test blood sugar(s) 2 times daily. Dx: OtherDM Code E11.42 Insulin: No Lancets lancets Test blood sugar(s) 2 times daily. Dx: Other DM Code E11.42 Insulin: No Blood-Glucose Meter Test Blood Sugars 2 times daily Dx E11.42 Insulin: No flash glucose sensor (FREESTYLE ADRIAN 10 DAY SENSOR) kit 1 Each one time a week. Check blood sugar twice a day flash glucose scanning reader (FREESTYLE ADRIAN 10 DAY READER) 1 Device twice daily. Check blood sugar twice a day aspirin, enteric coated (ASPIRIN, ENTERIC COATED) 81 mg EC tablet Take 1 tablet by mouth once daily. (Patient not taking: Reported on 10/22/2021) omega-3 fatty acids 1,000 mg cap Take 2 capsules by mouth once daily. (Patient not taking: Reportedon 10/22/2021) No current facility-administered medications on file prior to visit. Social History Social History Tobacco Use Smoking status: Every Day Packs/day: 0.30 Years: 40.00 Pack years: 12.00 Types: Cigarettes Smokeless tobacco: Never Tobacco comments: started smoking 20yo, usually 4 cigarettes per day Vaping Use Vaping Use: Never used Substance Use Topics Alcohol use: Yes Comment: few drinks per year Drug use: No Review of Symptoms REVIEW OF SYSTEMS GENERAL: No unintentional weight loss, malaise or fevers HEENT: Negative for frequent or significant headaches, No changes in hearing or vision, no nose bleeds or other nasal problems NECK: Negative for lumps, goiter, pain and significant neck swelling RESPIRATORY: Negative for hemoptysis, wheezing, COPD, dyspnea or shortness of breath. Has a dry cough from time to time. CARDIOVASCULAR: Negative for chest pain, leg swelling, hypertension, CHF or palpitations GI: No nausea, vomiting, or diarrhea, No heartburn or reflux symptoms, and no blood : No history of dysuria, blood MUSCULOSKELETAL: Negative for for new or changes in his typical joint pain or swelling, back pain or muscle pain SKIN: Negative for lesions, rash, and itching PSYCH: Negative for sleep disturbance, mood disorder and recent psychosocial stressors HEMATOLOGY/LYMPHOLOGY: Negative for prolonged bleeding, bruising easily or swollen nodes ENDOCRINE: Negative for cold or heat intolerance, has had a low BS's on a rare occasion. NEURO: No history of headaches, syncope, paralysis, seizures or tremors EXAM: BP 122/72 (BP Site: Right Arm, BP Position: Sitting, BP Cuff Size: Large Adult) Pulse 86 Resp 18 Ht 167.6 cm (5' 6) Wt 95.7 kg (211 lb) BMI 34.06 kg/m Last 5 Encounter Wt Readings: Date: Wt: 10/22/2021 95.7 kg (211 lb) 04/16/2021 103 kg (227 lb) 12/18/2020 102.1 kg (225 lb 1.9 oz) 04/10/2020 108.9 kg (240 lb) 12/12/2019 108.4 kg (239 lb) General Appearance: Well appearing, alert, in no acute distress, well-hydrated, well nourished. andObese. Skin: Skin color, texture, turgor normal, no suspicious rashes or lesions. Head: Normocephalic, no masses, lesions, tenderness or abnormalities. Eyes: Anicteric sclera. Pupils are equally round and reactive to light. Extraocular movements are intact. . Ears: External ears, TM's normal, canals clear. Neck: Supple, no adenopathy; thyroid symmetric, normal size, no bruits. Lungs: Lungs clear to auscultation. No wheezing, rhonchi, rales.. Heart: RRR without murmur, gallop, or rubs. No ectopy. Abdomen: Normal abdominal exam, Abdomen soft, non-tender. Bowel sounds normal. No masses, organomegaly. Extremities: No deformities, edema, skin discoloration, clubbing or cyanosis. Good capillary refill. . Musculoskeletal: Muscular strength intact, No joint swelling, deformity, or tenderness. Peripheral Pulses: Normal. Neurologic: Gait normal. Reflexes normal and symmetric. Sensation to light touch and crainal nerves2-12 intact.. Genitalia:patient declined exam Diabetic Foot Exam: Feet: Shoes and socks removed, no deformities, ulcers, calluses, normal distal pulses, non-sensitive to microfilament on both feet, and vibratory exam within normal limits Skin: warm, dry, and no callouses or ulcer Vascular Pulses: Normal SEMMES-CATY MONOFILAMENT TESTING Left Foot Right Foot Dorsal Surface Intact Dorsal Surface Intact Plantar Surface Intact Plantar Surface Intact Health Maintenance List ALPHA-1 ANTITRYPSIN DEFICIENCY SCREENING Never done SHINGRIX VACCINE(1 of 2) Never done DTAP,TDAP,TD(1 - Tdap) due on 08/24/2012 COVID-19 VACCINE(3 - Booster for Moderna series) due on 10/22/2020 ADVANCE DIRECTIVE DISCUSSION Never done BP CONTROLLED (<130/80) due on 04/10/2021 DILATED RETINAL EXAM due on 07/18/2021 INFLUENZA(1) due on 10/23/2021 HBA1C due on 04/11/2022 DIABETIC FOOT EXAM due on 04/16/2022 ANNUAL PCP TEAM CHRONIC DISEASE VISIT due on 04/16/2022 URINE ALBUMIN:CREATININE RATIO due on 10/09/2022 LDL CHOLESTEROL due on 10/09/2022 COLORECTAL CANCER SCREENING due on 11/15/2024 ABDOMINAL AORTIC ANEURYSM SCREENING Completed HEPATITIS C SCREENING Completed PNEUMOCOCCAL: 65+ Completed SPIROMETRY Discontinued Data reviewed Component Latest Ref Rng & Units 04/14/2021 04/16/2021 10/09/2021 WBC 3.70 - 11.00 k/uL 9.71 10.88 RBC 4.20 - 6.00 m/uL 5.84 5.80 Hemoglobin 13.0 - 17.0 g/dL 15.7 17.1 (H) Hematocrit 39.0 - 51.0 % 50.3 52.3 (H) MCV 80.0 - 100.0 fL 86.1 90.2 MCH 26.0 - 34.0 pg 26.9 29.5 MCHC 30.5 - 36.0 g/dL 31.2 32.7 RDW-CV 11.5 - 15.0 % 17.3 (H) 14.2 Platelet Count 150 - 400 k/uL 401 (H) 349 MPV 9.0 - 12.7 fL 9.5 9.1 Neut% % 62.1 62.6 Abs Neut (ANC) 1.45 - 7.50 k/uL 6.01 6.81 Lymph% % 23.3 24.6 Abs Lymph 1.00 - 4.00 k/uL 2.26 2.68 [place]% % 8.4 7.0 Abs [place] <0.87 k/uL 0.82 0.76 Eosin% % 5.8 5.1 Abs Eosin <0.46 k/uL 0.56 (H) 0.56 (H) Baso% % 0.4 0.4 Abs Baso <0.11 k/uL 0.04 0.04 Immature Gran % % 0.3 IMMATURE GRANS (ABS) <0.10 k/uL 0.03 NRBC /100 WBC 0.0 Absolute nRBC <0.01 k/uL <0.01 <0.01 DTYPE Auto Nucleated Reds 0 /100 WBC 0.0 Diff Type Auto Diff Protein, Total 6.3 - 8.0 g/dL 7.1 6.6 Albumin 3.9 - 4.9 g/dL 4.5 4.5 Calcium 8.5 - 10.2 mg/dL 10.1 8.8 Bilirubin, Total 0.2 - 1.3 mg/dL 0.2 0.2 Alkaline Phosphatase 38 - 113 U/L 127 (H) 128 (H) AST 14 - 40 U/L 23 17 Glucose 74 - 99 mg/dL 160 (H) 144 (H) BUN 9 - 24 mg/dL 24 22 Creatinine 0.73 - 1.22 mg/dL 0.92 0.89 Sodium 136 - 144 mmol/L 142 137 Potassium 3.7 - 5.1 mmol/L 4.5 4.7 Chloride 97 - 105 mmol/L 104 104 CO2 22 - 30 mmol/L 23 21 (L) Anion Gap 9 - 18 mmol/L 15 12 ALT 10 - 54 U/L 27 22 eGFR- >60 eGFR-All Other Races . >60 eGFR >=60 mL/min/1.73m 93 Color Yellow Light Yellow Clarity Clear Clear Glucose, Urine Negative 3+ (A) Bilirubin, Urine Negative Negative Ketones, Urine Negative Negative Specific [place], Ur 1.005 - 1.030 1.023 Hemoglobin/Blood,Ur Negative Negative pH, Urine 5.0 - 8.0 6.0 Protein, Urine Negative Negative Urobilinogen Negative Negative Nitrites Negative Negative Leukest Negative Negative WBC, Urine 0-5 /HPF 0-5 /HPF RBC, Urine 0-3 /HPF 0-3 /HPF Total Cholesterol, Nonfasting <200 mg/dL 118 108 Triglycerides, Nonfasting <150 mg/dL 165 (H) 91 HDL Cholesterol, Nonfasting >39 mg/dL 36 (L) 35 (L) LDL Cholesterol, Nonfasting <100 mg/dL 49 55 Non HDL Cholesterol, Nonfasting <130 mg/dL 82 73 VLDL Cholesterol, Nonfasting <30 mg/dL 33 (H) 18 Total Chol/HDL Ratio, Nonfasting <5.10 mg/dL 3.28 3.09 LDL/HDL Ratio, Nonfasting <2.54 mg/dL 1.36 1.57 Iron 41 - 186 ug/dL 43 58 TIBC 232 - 386 ug/dL 401 (H) 381 Transferrin Saturation 15.0 - 57.0 % 11 (L) 15.2 Creatinine, Ur Random (UCRR) 20.0 - 300.0 mg/dL 51.8 Albumin, Urine Random mg/L <12.0 Albumin/Creat Ratio <30 mg/g <23 PSA <2.60 ng/mL 3.33 (H) 3.35 (H) PSA, Percent Free % 15 16 Hemoglobin A1C 4.3 - 5.6 % 7.6 (H) 7.0 (H) Estimated Average Glucose mg/dL 171 154 A/P ASSESSMENT/PLAN: 1. Medicare annual wellness visit, initial - ICD9: V70.0, ICD10: Z00.00 (primary diagnosis) - Counseled on healthy diet and regular exercise - Discussed need for and benefit of weight loss. BMI 34.06 kg/(m^2) - Follow up for annual exam in one year 2. Type 2 diabetes mellitus without retinopathy (HCC) - ICD9: 250.00, ICD10: E11.9 Controlled. improved control - Continue current medications - Encouraged regular aerobic exercise and weight loss - BP goal of <130/80 - LDL goal of <100 - BLOOD GLUCOSE TEST STRIPS 3. Uncontrolled type 2 diabetes mellitus with hyperglycemia ([facility]) - ICD9: 250.02, ICD10: E11.65 - as per #2 4. Type 2 diabetes mellitus with diabetic neuropathy, without long-term current use of insulin ([facility]) - ICD9: 250.60, 357.2, ICD10: E11.40 - as per #2. Stable neuropathy 5. Diabetic eye exam ([facility]) - ICD9: V72.0, 250.00, ICD10: Z01.00, E11.9 - will get most recent report. 6. Essential hypertension - ICD9: 401.9, ICD10: I10 - good control - Continue current medication(s) - Recommended regular aerobic exercise. - Recommend home blood pressure monitoring, to bring results in on next visit - Goal of BP <130/80 7. Mixed hyperlipidemia - ICD9: 272.2, ICD10: E78.2 - good control - Encouraged following a low fat, low cholesterol diet. - Discussed the benefits of regular aerobic exercise and weight loss. - Encouraged following a low carbohydrate, healthy oil intake diet. - Continue current therapy. 8. Congestive heart failure, unspecified HF chronicity, unspecified heart failure type ([facility]) - ICD9: 428.0, ICD10: I50.9 - clinically stable no changes. 9. Coronary artery disease involving [place] coronary artery of [place] heart without angina pectoris- ICD9: 414.01, ICD10: I25.10 - as per #8 10. Ischemic cardiomyopathy - ICD9: 414.8, ICD10: I25.5 - as per #8 11. COPD with chronic bronchitis ([facility]) - ICD9: 491.20, ICD10: J44.9 - stable. Patient encouraged to quit smoking. 12. Gastroesophageal reflux disease without esophagitis - ICD9: 530.81, ICD10: K21.9 - controlled with diet. 13. Iron deficiency anemia, unspecified iron deficiency anemia type - ICD9: 280.9, ICD10: D50.9 - cont replacement - SLOW FE 142 MG (45 MG IRON) TABLET,EXTENDED RELEASE 14. Depression with anxiety - ICD9: 300.4, ICD10: F41.8 - stable without need for meds. 15. Obesity, Class II, BMI 35-39.9 - ICD9: 278.00, ICD10: E66.9 Weight decreasing - Behavioral intervention 16. Smoker - ICD9: 305.1, ICD10: F17.200 - Cessation encouraged. - Counseling was given focusing on the harmful effects of this addiction especially given the patient's medical condition(s) which will be worsened because of the chemicals in tobacco. 17. Elevated PSA - ICD9: 790.93, ICD10: R97.20 - stable will monitor 18. Living will in place - ICD9: V49.89, ICD10: Z78.9 - patient to bring in copies 19. Advance directive discussed with patient - ICD9: V65.49, ICD10: Z71.89 - as per #18 Requested Prescriptions Signed Prescriptions Disp Refills metoprolol succinate ER (TOPROL XL) 50 mg 24 hr tablet 90 tablet 1 Sig: Take 1 tablet by mouth once daily. metFORMIN (GLUCOPHAGE) 1,000 mg tablet 180 tablet 1 Sig: Take 1 tablet by mouth twice daily with meals. lisinopril (ZESTRIL, PRINIVIL) 10 mg tablet 90 tablet 1 Sig: Take 1 tablet by mouth once daily. linaGLIPtin (TRADJENTA) 5 mg tab 90 tablet 1 Sig: Take 1 tablet by mouth once daily. glimepiride (AMARYL) 4 mg tablet 180 tablet 1 Sig: Take 1 tablet by mouth twice daily with meals. Ferrous Sulfate (SLOW FE) 142 mg (45 mg iron) TbER 90 tablet 1 Sig: Take 1 tablet by mouth once daily. empagliflozin (JARDIANCE) 25 mg tablet 90 tablet 1 Sig: Take 1 tablet by mouth daily with breakfast. clopidogrel (PLAVIX) 75 mg tablet 90 tablet 1 Sig: Take 1 tablet by mouth once daily. atorvastatin (LIPITOR) 80 mg tablet 90 tablet 1 Sig: Take 1 tablet by mouth daily at bedtime. fluticasone-salmeterol (ADVAIR DISKUS) 100-50 mcg/dose inhaler 1 Each 5 Sig: Inhale 1 Puff as instructed twice daily. albuterol HFA (PROVENTIL HFA, VENTOLIN HFA) 90 mcg/actuation inhaler 18 g 2 Sig: Inhale 2 Puffs as instructed every 4 hours as needed. blood sugar diagnostic (BLOOD GLUCOSE TEST) test strip 100 Strip 11 Sig: Test blood sugar(s) 2 times daily. Dx: Other DM Code E11.42 Insulin: No F/u 6 months routine check A1c, CBC, lipid, Free PSA I spent a total of 40 minutes on the date of the service which included preparing to see the patient, [id number] patient care, completing clinical documentation, performing a medically appropriate examination, counseling and educating the patient/family/caregiver and ordering medications, tests, or procedures. Jorden Hartmann MD [facility] History of Present illness Narrative* Berkley Fritz (Rt), Tech - 12/12/2019 2:20 PM EDT Radiology Service Progress Note PATIENT NAME: Victor Hugo Sheth DATE OF SERVICE: December 12, 2019 TIME: 2:36 PM PATIENT IDENTITY VERIFICATION COMPLETED USING TWO (2) IDENTIFIERS: Name and Date of confirmedby patient verbally. FALL SCREENING: Has the patient had 2 falls in the last year or 1 fall with injury or currently using an Ambulatory Assistive Device (Walker, Cane, Wheelchair, Crutches, etc.)? No PATIENT GENDER DATA: Male PATIENT RELEVANT IMPLANT DATA REVIEWED: Not Applicable RADIOLOGY DEPARTMENT: General X-ray: Exam(s) Completed: Lower Extremity X- Ray(s): Knee, AP / Lat / Tunne / Merchant Bilateral: PERIPHERAL IV DATA: Not applicable SIGNED BY: RT Trena December 12, 2019 2:36 PM [facility] History of Present illness Narrative* Bev Palomo (Tech), Tech - 12/06/2019 5:50 PM EDT Radiology Service Progress Note PATIENT NAME: Victor Hugo Sheth DATE OF SERVICE: December 06, 2019 TIME: 5:56 PM PATIENT IDENTITY VERIFICATION COMPLETED USING TWO (2) IDENTIFIERS: Name and Date of confirmedby patient verbally. FALL SCREENING: Has the patient had 2 falls in the last year or 1 fall with injury or currently using an Ambulatory Assistive Device (Walker, Cane, Wheelchair, Crutches, etc.)? No PATIENT GENDER DATA: Male PATIENT RELEVANT IMPLANT DATA REVIEWED: Not Applicable RADIOLOGY DEPARTMENT: General X-ray: Exam(s) Completed: Spine X-Ray(s): Lumbar AP / LAT / L5-S1 PERIPHERAL IV DATA: Not applicable SIGNED BY: Carmenza Colvin December 06, 2019 5:56 PM documented in this encounter[address]21-[address] History of Past illness Narrative* Problem Noted Date Resolved Date Combined senile cataract 10/12/2014 018 documented as of this encounter (statuses as of 10/24/2021) [address]-2015 History of Past illness Narrative* Problem Noted Date Resolved Date Combined senile cataract 10/12/2014 018 documented as of this encounter (statuses as of 04/02/2022) [address]-2015 History of Past illness Narrative* Problem Noted Date Diagnosed Date Resolved Date Combined senile cataract 10/12/2014 documented as of this encounter (statuses as of 10/15/2022) [address]-2015 History of Past illness Narrative* Problem Noted Date Diagnosed Date Resolved Date Combined senile cataract 10/12/2014 documented as of this encounter (statuses as of 11/07/2022) [address]2015 History of Past illness Narrative* Problem Noted Date Diagnosed Date Resolved Date Combined senile cataract 10/12/2014 documented as of this encounter (statuses as of 11/28/2022) [address]2015 History of Past illness Narrative* Problem Noted Date Diagnosed Date Resolved Date Combined senile cataract 10/12/2014 documented as of this encounter (statuses as of 12/04/2022) [address]2015 History of Past illness Narrative* Problem Noted Date Diagnosed Date Resolved Date Combined senile cataract 10/12/2014 documented as of this encounter (statuses as of 01/11/2023) [address]2015 History of Past illness Narrative* Problem Noted Date Diagnosed Date Resolved Date Combined senile cataract 10/12/2014 documented as of this encounter (statuses as of 04/29/2023) [facility] of Past illness Narrative* Problem Noted Date Diagnosed Date Resolved Date Combined senile cataract 10/12/2014 documented as of this encounter (statuses as of 04/29/2023) [facility] Diagnosis Medicare annual wellness visit, initial- Primary Routine general medical examination at a health care facility Type 2 diabetes mellitus without retinopathy (HCC) Type II or unspecified type diabetes mellitus without mention of complication, not stated as uncontrolled Uncontrolled type 2 diabetes mellitus with hyperglycemia (HCC) Type 2 diabetes mellitus with diabetic neuropathy, without long-term current use of insulin ([facility]) Diabetic eye exam (HCC) Type II or unspecified type diabetes mellitus without mention of complication, not stated as uncontrolled Essential hypertension Unspecified essential hypertension Mixed hyperlipidemia Congestive heart failure, unspecified HF chronicity, unspecified heart failure type (HCC) Coronary artery disease involving [place] coronary artery of [place] heart without angina pectoris Ischemic cardiomyopathy Other specified forms of chronic ischemic heart disease COPD with chronic bronchitis (HCC) Obstructive chronic bronchitis without exacerbation Gastroesophageal reflux disease without esophagitis Esophageal reflux Iron deficiency anemia, unspecified iron deficiency anemia type Depression with anxiety Dysthymic disorder Obesity, Class II, BMI 35-39.9 Obesity, unspecified Smoker Tobacco use disorder Elevated PSA Elevated prostate specific antigen (PSA) Living will in place Advance directive discussed with patient Other specified counseling documented in this encounter [facility] note* Diagnosis Uncontrolled type 2 diabetes mellitus with hyperglycemia ([facility])- Primary Type 2 diabetes mellitus with diabetic neuropathy, without long-term current use of insulin (HCC) Type 2 diabetes mellitus without retinopathy (HCC) Type II or unspecified type diabetes mellitus without mention of complication, not stated as uncontrolled Diabetic eye exam (HCC) Type II or unspecified type diabetes mellitus without mention of complication, not stated as uncontrolled Essential hypertension Unspecified essential hypertension Mixed hyperlipidemia Gastroesophageal reflux disease without esophagitis Esophageal reflux Coronary artery disease involving [place] coronary artery of [place] heart without angina pectoris Congestive heart failure, unspecified HF chronicity, unspecified heart failure type (HCC) Ischemic cardiomyopathy Other specified forms of chronic ischemic heart disease COPD with chronic bronchitis (HCC) Obstructive chronic bronchitis without exacerbation Depression with anxiety Dysthymic disorder Iron deficiency anemia, unspecified iron deficiency anemia type Smoker Tobacco use disorder Obesity, Class II, BMI 35-39.9 Obesity, unspecified Advance directive discussed with patient Other specified counseling Elevated PSA Elevated prostate specific antigen (PSA) [facility] Diagnosis Uncontrolled type 2 diabetes mellitus with hyperglycemia (HCC)- Primary Type 2 diabetes mellitus without retinopathy (HCC) Type II or unspecified type diabetes mellitus without mention of complication, not stated as uncontrolled Type 2 diabetes mellitus with diabetic neuropathy, without long-term current use of insulin (HCC) Diabetic eye exam (HCC) Type II or unspecified type diabetes mellitus without mention of complication, not stated as uncontrolled Essential hypertension Unspecified essential hypertension Mixed hyperlipidemia Coronary artery disease involving [place] coronary artery of [place] heart without angina pectoris Congestive heart failure, unspecified HF chronicity, unspecified heart failure type (HCC) Ischemic cardiomyopathy Other specified forms of chronic ischemic heart disease Gastroesophageal reflux disease without esophagitis Esophageal reflux Iron deficiency anemia, unspecified iron deficiency anemia type COPD with chronic bronchitis (HCC) Obstructive chronic bronchitis without exacerbation Depression with anxiety Dysthymic disorder Obesity, Class II, BMI 35-39.9 Obesity, unspecified Smoker Tobacco use disorder Elevated PSA Elevated prostate specific antigen (PSA) [facility] Diagnosis Iron deficiency anemia, unspecified iron deficiency anemia type [facility]* Diagnosis Encounter for immunization- Primary Need for other specified prophylactic vaccination against single bacterial disease Essential hypertension Unspecified essential hypertension [facility]* Diagnosis Type 2 diabetes mellitus without retinopathy (HCC) Type II or unspecified type diabetes mellitus without mention of complication, not stated as uncontrolled [facility] Diagnosis Mixed hyperlipidemia- Primary Coronary artery disease involving [place] coronary artery of [place] heart without angina pectoris Type 2 diabetes mellitus without retinopathy (HCC) Type II or unspecified type diabetes mellitus without mention of complication, not stated as uncontrolled Gastroesophageal reflux disease without esophagitis Esophageal reflux Uncontrolled type 2 diabetes mellitus with hyperglycemia (HCC) Essential hypertension Unspecified essential hypertension Iron deficiency anemia, unspecified iron deficiency anemia type Elevated PSA Elevated prostate specific antigen (PSA) Medication management Encounter for long-term (current) use of other medications [facility]* Diagnosis Coronary artery disease involving [place] coronary artery of [place] heart without angina pectoris- Primary Ischemic cardiomyopathy Other specified forms of chronic ischemic heart disease Chronic systolic congestive heart failure (HCC) Chronic systolic heart failure [facility] Diagnosis Elevated PSA- Primary Elevated prostate specific antigen (PSA) Screening for genitourinary condition Screening for other and unspecified genitourinary condition documented in this encounter [facility] note* Diagnosis Sciatica of right side Sciatica documented in this encounter [facility] note* Diagnosis Acute pain of right knee documented in this encounter [facility] note* Diagnosis Elevated prostate specific antigen (PSA)- Primary documented in this encounter [facility] note* Diagnosis Elevated prostate specific antigen (PSA)- Primary documented in this encounter [facility] note* Diagnosis Prostate cancer (HCC)- Primary Malignant neoplasm of prostate documented in this encounter [facility] note* Diagnosis Injury of right hand, sequela- Primary Numbness and tingling in right hand Disturbance of skin sensation Coronary artery disease involving [place] coronary artery of [place] heart without angina pectoris Iron deficiency anemia, unspecified iron deficiency anemia type Lumbar back pain with radiculopathy affecting lower extremity Chronic pain of both shoulders Pain in joint, shoulder region documented in this encounter [facility] note* Diagnosis Prostate cancer (HCC) Malignant neoplasm of prostate documented in this encounter [facility] note* Diagnosis Prostate cancer (HCC)- Primary Malignant neoplasm of prostate documented in this encounter [facility] note* Diagnosis Prostate cancer (HCC)- Primary Malignant neoplasm of prostate documented in this encounter [facility] note* Diagnosis Prostate cancer (HCC)- Primary Malignant neoplasm of prostate documented in this encounter [facility] note* Diagnosis Prostate cancer (HCC)- Primary Malignant neoplasm of prostate documented in this encounter [facility] note* Diagnosis Prostate cancer (HCC)- Primary Malignant neoplasm of prostate documented in this encounter [facility] note* Diagnosis Iron deficiency anemia, unspecified iron deficiency anemia type- Primary documented in this encounter [facility] note* Diagnosis Prostate cancer (HCC)- Primary Malignant neoplasm of prostate documented in this encounter [facility] note* Diagnosis Prostate cancer (HCC)- Primary Malignant neoplasm of prostate documented in this encounter [facility] note* Diagnosis Prostate cancer (HCC)- Primary Malignant neoplasm of prostate [facility]* Diagnosis Prostate cancer (HCC)- Primary Malignant neoplasm of prostate documented in this encounter [facility] note* Diagnosis Radiotherapy follow-up- Primary Radiotherapy follow-up examination Prostate cancer (HCC) Malignant neoplasm of prostate [facility] Diagnosis Coronary artery disease due to lipid rich plaque- Primary Coronary artery disease involving [place] coronary artery of [place] heart without angina pectoris Prolonged QT interval Nonspecific abnormal electrocardiogram (ECG) (EKG) documented [facility]* Diagnosis Coronary artery disease due to lipid rich plaque [facility] Diagnosis Coronary artery disease due to lipid rich plaque [facility] Diagnosis Prostate cancer (HCC)- Primary Malignant neoplasm of prostate Abnormal stress test Other nonspecific abnormal cardiovascular system function study [facility] Diagnosis Chronic systolic congestive heart failure (HCC)- Primary Chronic systolic heart failure Coronary artery disease involving [place] coronary artery of [place] heart without angina pectoris Nonrheumatic mitral valve regurgitation Preoperative testing Preoperative examination, unspecified Encounter for screening for cardiovascular disorders Screening for other and unspecified cardiovascular conditions Abnormal stress test Other nonspecific abnormal cardiovascular system function study Valvular heart disease Endocarditis, valve unspecified, unspecified cause Abnormal stress test Other nonspecific abnormal cardiovascular system function study Valvular heart disease Endocarditis, valve unspecified, unspecified cause [facility] Diagnosis Coronary artery disease involving [place] coronary artery of [place] heart without angina pectoris- Primary Preoperative testing Preoperative examination, unspecified Uncontrolled type 2 diabetes mellitus with hyperglycemia (HCC) Abnormal stress test Other nonspecific abnormal cardiovascular system function study Valvular heart disease Endocarditis, valve unspecified, unspecified cause Abnormal stress test Other nonspecific abnormal cardiovascular system function study Valvular heart disease Endocarditis, valve unspecified, unspecified cause Coronary artery disease involving [place] coronary artery of [place] heart without angina pectoris [facility] Diagnosis Chronic systolic congestive heart failure (HCC) Chronic systolic heart failure Coronary artery disease involving [place] coronary artery of [place] heart without angina pectoris Nonrheumatic mitral valve regurgitation Preoperative testing Preoperative examination, unspecified Encounter for screening for cardiovascular disorders Screening for other and unspecified cardiovascular conditions Abnormal stress test Other nonspecific abnormal cardiovascular system function study Valvular heart disease Endocarditis, valve unspecified, unspecified cause Abnormal stress test Other nonspecific abnormal cardiovascular system function study Valvular heart disease Endocarditis, valve unspecified, unspecified cause Coronary artery disease involving [place] coronary artery of [place] heart without angina pectoris documented [facility] [facility] Diagnosis Coronary artery disease involving [place] coronary artery of [place] heart without angina pectoris- Primary Preoperative testing Preoperative examination, unspecified Coronary artery disease involving [place] coronary artery of [place] heart without angina pectoris [facility] Diagnosis Elevated alkaline phosphatase level- Primary Other nonspecific abnormal serum enzyme levels [facility] Diagnosis OPENED IN ERROR- Primary To allow closing an encounter opened in error (used in SmartSet) documented in this encounter [facility] note* Diagnosis Coronary artery disease involving [place] coronary artery of [place] heart without angina pectoris- Primary documented in this encounter [facility] for referral (narrative)* Outpatient Procedure (Routine) - New Request Specialty Diagnoses / Procedures Referred By Lulu feliciano Referred To Contact [facility] Diagnoses Elevated prostate specific antigen (PSA) Procedures PROSTATE BIOPSY GUKI PROSTATE NEEDLE BIOPSY ANY APPROACH US, TRANSRECTAL URNLS DIP STICK/TABLET RGNT AUTO W/O MICROSCOPY US GUIDANCE NEEDLE PLACEMENT IMG S&I Brady Martinez PA-C [address] [place] [address] [address] Referral ID Status Reason Start Date Expiration Date Visits Requested Visits Authorized [id number] New Request Auto-Generat ed Referral 4 12/02/2024 1 1 [facility] for referral (narrative)No reason for referral information availableWWright-[facility] N[facility]ative* Diagnostic Procedure Only (Routine) - Closed Specialty Diagnoses / Procedures Referred By Lulu feliciano Referred To Contact [facility] Diagnoses Coronary artery disease due to lipid rich plaque Procedures NM CARDIAC PERF STRESS/PHARM MYOCARDIAL SPECT MULTIPLE STUDIES ECHO TTHRC R-T 2D W/WOM-MODE COMPL SPEC&COLR D Monico Amaro MD [address] [place] [address] Phone: tel: fax: [facility] [address] [place] [address] Phone: tel: Referral ID Status Reason Start Date Expiration Date V isits Requested Visits Authorized [id number] Closed Auto-Generate d Referral 08/21/2024 09/20/2024 2 2 [facility] for visit Narrative* Diagnostic Procedure Only (Routine) - Closed Specialty Diagnoses / Procedures Referred By Lulu feliciano Referred To Contact [facility] Diagnoses Coronary artery disease due to lipid rich plaque Procedures NM CARDIAC PERF STRESS/PHARM MYOCARDIAL SPECT MULTIPLE STUDIES ECHO TTHRC R-T 2D W/WOM-MODE COMPL SPEC&COLR D Monico Amaro MD [address] [place] [address] Phone: tel: fax: [facility] [address] [place] [address] Phone: tel: Referral ID Status Reason Start Date Expiration Date V isits Requested Visits Authorized [id number] Closed Auto-Generate d Referral 08/21/2024 09/20/2024 2 2 [facility] for visit Narrative* Outpatient Procedure (Routine) - Closed Specialty Diagnoses / Procedures Referred By Lulu feliciano Referred To [facility] Diagnoses Coronary artery disease due to lipid rich plaque Procedures ECHO ECHO TTHRC R-T 2D W/WOM-MODE COMPL SPEC&COLR Monico Chi MD [address] [place] [address] Phone: tel: fax: [facility] [place] [address] [place] [address] Referral ID Status Reason Start Date Expiration Date V isits Requested Visits Authorized [id number] Closed Auto-Generate d Referral 08/01/2024 08/01/2025 1 1 [facility] for visit Narrative* MRI/CT (Routine) - Closed Specialty Diagnoses / Procedures Referred By Lulu feliciano Referred To Contact CT IMAGING Diagnoses Chronic systolic congestive heart failure (HCC) Coronary artery disease involving [place] coronary artery of [place] heart without angina pectoris Nonrheumatic mitral valve regurgitation Preoperative testing Encounter for screening for cardiovascular disorders Procedures CT CHEST WO IVCON DIAGNOSTIC COMPUTED TOMOGRAPHY THORAX W/O CNTRST Palmira Russell, ROBERTO.CLEANING AND MAINTENANCE WORKER [address] [facility] [address] [place] [address] Phone: tel: fax: [place] [address] Referral ID Status Reason Start Date Expiration Date V isits Requested Visits Authorized [id number] Closed Auto-Generate d Referral 10/06/2024 12/05/2024 1 1 [facility] Summary Purpose Family History No Family History Records Found Relationship Condition Age at Onset Recorded Date/T natasha Unknown Family History?COPD Unknown May 112014 9:52am Family History?Heart Disease Unknown May 11, 2014 9:52am Family History?No pe rtinent history Unknown May 11, 2014 9:52am Family History?No pe rtinent history Unknown March 27, 2024 5:31pm Relationship Condition Age at Onset Recorded Date/T natasha Not Specified Diabetes mellitus Unknown Cardiac disease Unknown Malignant neoplasm Unknown Hypertension Unknown Advance Directives No Advanced Directives Records Found Advance Directive Response Recorded Date/ Time Advance Directives No March 27, 2024 5:31pm Reason for Referral Specialty Diagnoses / Procedures Referred By Contac t Referred To Contact Radiation Oncology Diagnoses Prostate cancer (HCC) Procedures RAD/ONC CONSULT OFFICE/OUTPATIENT [facility] 60 MINUTES Ayan Jefferson Jr., MD [address] [place] [address] Referral ID Status Reason Start Date Expiration Date Visits Requested Visits Authorized [id number] Authorized PCP Requested Referral 03/14/2024 03/14/2025 1 1 Specialty Diagnoses / Procedures Referred By Contac t Referred To Contact Cardiology Diagnoses Coronary artery disease involving [place] coronary artery of [place] heart without angina pectoris Procedures CONSULT TO CARDIOLOGY OFFICE/OUTPATIENT [facility] 60 MINUTES Debora Martinez PA-C [address] [place] [address] Referral ID Status Reason Start Date Expiration Date Visits Requested Visits Authorized [id number] Authorized PCP Requested Referral 03/17/2024 03/17/2025 1 1 Specialty Diagnoses / Procedures Referred By Contac t Referred To Contact Plastic Surgery Diagnoses Injury of right hand, sequela Numbness and tingling in right hand Procedures CONSULT TO PLASTIC SURGERY OFFICE/OUTPATIENT [facility] 60 MINUTES Debora Martinez PA-C [address] [place] [address] Referral ID Status Reason Start Date Expiration Date Visits Requested Visits Authorized [id number] Authorized PCP Requested Referral 03/17/2024 03/17/2025 1 1 Chief Complaint and Reason for Visit Chief Complaint Admit Date R HAND NUMBNESS April 20, 2024 3:08pm RIGHT HAND PAIN May 04, 2024 3:2 3pm 3 W FU May 11, 2024 2:5 4pm Reason for Visit Admit Date Carpal tunnel syndrome April 20 3:08pm Dog bite of hand April 20, 2024 3:08pm Lower extremity pain April 20, 2024 3:08pm Carpal tunnel syndrome May 11, 2024 2:54pm Dog bite of hand May 11, 2024 2:5 4pm Lower extremity pain May 11, 2024 2: 54pm Chief Complaint Admit Date R HAND NUMBNESS April 20, 2024 3:08pm RIGHT HAND PAIN May 04, 2024 3:2 3pm 3 W FU May 11, 2024 2:5 4pm Claudication May 26, 2024 10:5 6am PERIPHERAL VASCULAR DISEASE, UNSPECIFIED June 12, 2024 10:49am LUMBAR SPINE July 04, 2024 2:26p m Room 4 July 04, 2024 2:40p m Reason for Visit Admit Date Carpal tunnel syndrome April 20 3:08pm Dog bite of hand April 20, 2024 3:08pm Lower extremity pain April 20, 2024 3:08pm Carpal tunnel syndrome May 11, 2024 2:54pm Dog bite of hand May 11, 2024 2:5 4pm Lower extremity pain May 11, 2024 2: 54pm Claudication May 26, 2024 10:5 6am Chief Complaint Admit Date R HAND NUMBNESS April 20, 2024 3:08pm RIGHT HAND PAIN May 04, 2024 3:2 3pm 3 W FU May 11, 2024 2:5 4pm Claudication May 26, 2024 10:5 6am PERIPHERAL VASCULAR DISEASE, UNSPECIFIED June 12, 2024 10:49am LUMBAR SPINE July 04, 2024 2:26p m Room 4 July 04, 2024 2:40p m DISCUSS POSSIBLE SURGERY August 11, 2024 2:35pm Reason for Visit Admit Date Carpal tunnel syndrome April 20 3:08pm Dog bite of hand April 20, 2024 3:08pm Lower extremity pain April 20, 2024 3:08pm Carpal tunnel syndrome May 11, 2024 2:54pm Dog bite of hand May 11, 2024 2:5 4pm Lower extremity pain May 11, 2024 2: 54pm Claudication May 26, 2024 10:5 6am Lumbar stenosis with neurogenic claudica tion July 04, 2024 2:26pm Spondylolisthesis at L4-L5 level June 2:26pm Chief Complaint Admit Date RIGHT HAND PAIN May 04, 2024 3:2 3pm 3 W FU May 11, 2024 2:5 4pm Claudication May 26, 2024 10:5 6am PERIPHERAL VASCULAR DISEASE, UNSPECIFIED June 12, 2024 10:49am LUMBAR SPINE July 04, 2024 2:26p m Room 4 July 04, 2024 2:40p m DISCUSS POSSIBLE SURGERY August 11, 2024 2:35pm Pain August 18, 2024 10:1 6am Reason for Visit Admit Date Carpal tunnel syndrome May 11, 2024 2:54pm Dog bite of hand May 11, 2024 2:5 4pm Lower extremity pain May 11, 2024 2: 54pm Claudication May 26, 2024 10:5 6am Lumbar stenosis with neurogenic claudica tion July 04, 2024 2:26pm Spondylolisthesis at L4-L5 level June 2:26pm Carpal tunnel syndrome August 11, 2024 2 :35pm Dog bite of hand August 11, 2024 2:35 pm Chief Complaint Admit Date Claudication May 26, 2024 10:5 6am PERIPHERAL VASCULAR DISEASE, UNSPECIFIED June 12, 2024 10:49am LUMBAR SPINE July 04, 2024 2:26p m Room 4 July 04, 2024 2:40p m DISCUSS POSSIBLE SURGERY August 11, 2024 2:35pm Pain August 18, 2024 10:1 6am LUMBAR SPINE September 14, 2024 3:16 pm Reason for Visit Admit Date Claudication May 26, 2024 10:5 6am Lumbar stenosis with neurogenic claudica tion July 04, 2024 2:26pm Spondylolisthesis at L4-L5 level June 132024 2:26pm Carpal tunnel syndrome August 11, 2024 2 :35pm Dog bite of hand August 11, 2024 2:35 pm Cervical radiculopathy September 14, 2024 3 :16pm Claudication September 14, 2024 3:16 pm DDD (degenerative disc disease) August 3:16pm Kyphosis September 14, 2024 3:16 pm Lumbar stenosis with neurogenic claudica tion September 14, 2024 3:16pm Spondylolisthesis at L4-L5 level September 142024 3:16pm Additional Source Comments (unrecognized sect ion and content) No Status Records FoundNo Status Records FoundNo Status Records FoundNo Status Records FoundNo Status Records Found INFORMATION SOURCE (unrecogn ized section and content) DATE CREATED AUTHOR 08/12/2017 [facility] DATE CREATED AUTHOR AUTHOR'S ORGANIZ ATION 09/16/2024 [facility] DATE CREATED AUTHOR AUTHOR'S ORGANIZ ATION 10/22/2024 [facility] DATE CREATED AUTHOR AUTHOR'S ORGANIZ ATION 11/26/2024 [facility] DATE CREATED AUTHOR AUTHOR'S ORGANIZ ATION 12/02/2024 [facility] Source Comments (unrecognize d section and content) In the event this informatio n is protected by the Federal Confidentiality of Alcohol and Drug Abuse Patient Records regulations: The Federal rules restrict any use of the information to criminally investigate or prosecute any alcohol or drug abuse patient.[facility] the event this information is protected by the Federal Confidentiality of Alcohol and Drug Abuse Patient Records regulations: The Federal rules restrict any use of the information to criminally investigate or prosecute any alcohol or drug abuse patient.[facility] the event this information is protected by the Federal Confidentiality of Alcohol and Drug Abuse Patient Records regulations: The Federal rules restrict any use of the information to criminally investigate or prosecute any alcohol or drug abuse patient.[facility] the event this information is protected by the Federal Confidentiality of Alcohol and Drug Abuse Patient Records regulations: The Federal rules restrict any use of the information to criminally investigate or prosecute any alcohol or drug abuse patient.[facility] the event this information is protected by the Federal Confidentiality of Alcohol and Drug Abuse Patient Records regulations: The Federal rules restrict any use of the information to criminally investigate or prosecute any alcohol or drug abuse patient.[facility] the event this information is protected by the Federal Confidentiality of Alcohol and Drug Abuse Patient Records regulations: The Federal rules restrict any use of the information to criminally investigate or prosecute any alcohol or drug abuse patient.[facility] the event this information is protected by the Federal Confidentiality of Alcohol and Drug Abuse Patient Records regulations: The Federal rules restrict any use of the information to criminally investigate or prosecute any alcohol or drug abuse patient.[facility] the event this information is protected by the Federal Confidentiality of Alcohol and Drug Abuse Patient Records regulations: The Federal rules restrict any use of the information to criminally investigate or prosecute any alcohol or drug abuse patient.[facility] the event this information is protected by the Federal Confidentiality of Alcohol and Drug Abuse Patient Records regulations: The Federal rules restrict any use of the information to criminally investigate or prosecute any alcohol or drug abuse patient.[facility] the event this information is protected by the Federal Confidentiality of Alcohol and Drug Abuse Patient Records regulations: The Federal rules restrict any use of the information to criminally investigate or prosecute any alcohol or drug abuse patient.[facility] the event this information is protected by the Federal Confidentiality of Alcohol and Drug Abuse Patient Records regulations: The Federal rules restrict any use of the information to criminally investigate or prosecute any alcohol or drug abuse patient.[facility] the event this information is protected by the Federal Confidentiality of Alcohol and Drug Abuse Patient Records regulations: The Federal rules restrict any use of the information to criminally investigate or prosecute any alcohol or drug abuse patient.[facility] the event this information is protected by the Federal Confidentiality of Alcohol and Drug Abuse Patient Records regulations: The Federal rules restrict any use of the information to criminally investigate or prosecute any alcohol or drug abuse patient.[facility] the event this information is protected by the Federal Confidentiality of Alcohol and Drug Abuse Patient Records regulations: The Federal rules restrict any use of the information to criminally investigate or prosecute any alcohol or drug abuse patient.[facility] the event this information is protected by the Federal Confidentiality of Alcohol and Drug Abuse Patient Records regulations: The Federal rules restrict any use of the information to criminally investigate or prosecute any alcohol or drug abuse patient.[facility] the event this information is protected by the Federal Confidentiality of Alcohol and Drug Abuse Patient Records regulations: The Federal rules restrict any use of the information to criminally investigate or prosecute any alcohol or drug abuse patient.[facility] the event this information is protected by the Federal Confidentiality of Alcohol and Drug Abuse Patient Records regulations: The Federal rules restrict any use of the information to criminally investigate or prosecute any alcohol or drug abuse patient.[facility] the event this information is protected by the Federal Confidentiality of Alcohol and Drug Abuse Patient Records regulations: The Federal rules restrict any use of the information to criminally investigate or prosecute any alcohol or drug abuse patient.[facility] the event this information is protected by the Federal Confidentiality of Alcohol and Drug Abuse Patient Records regulations: The Federal rules restrict any use of the information to criminally investigate or prosecute any alcohol or drug abuse patient.[facility] the event this information is protected by the Federal Confidentiality of Alcohol and Drug Abuse Patient Records regulations: The Federal rules restrict any use of the information to criminally investigate or prosecute any alcohol or drug abuse patient.[facility] the event this information is protected by the Federal Confidentiality of Alcohol and Drug Abuse Patient Records regulations: The Federal rules restrict any use of the information to criminally investigate or prosecute any alcohol or drug abuse patient.[facility] the event this information is protected by the Federal Confidentiality of Alcohol and Drug Abuse Patient Records regulations: The Federal rules restrict any use of the information to criminally investigate or prosecute any alcohol or drug abuse patient.[facility] the event this information is protected by the Federal Confidentiality of Alcohol and Drug Abuse Patient Records regulations: The Federal rules restrict any use of the information to criminally investigate or prosecute any alcohol or drug abuse patient.[facility] the event this information is protected by the Federal Confidentiality of Alcohol and Drug Abuse Patient Records regulations: The Federal rules restrict any use of the information to criminally investigate or prosecute any alcohol or drug abuse patient.[facility] the event this information is protected by the Federal Confidentiality of Alcohol and Drug Abuse Patient Records regulations: The Federal rules restrict any use of the information to criminally investigate or prosecute any alcohol or drug abuse patient.[facility] the event this information is protected by the Federal Confidentiality of Alcohol and Drug Abuse Patient Records regulations: The Federal rules restrict any use of the information to criminally investigate or prosecute any alcohol or drug abuse patient.[facility]In the event this information is protected by the Federal Confidentiality of Alcohol and Drug Abuse Patient Records regulations: The Federal rules restrict any use of the information to criminally investigate or prosecute any alcohol or drug abuse patient.[facility] the event this information is protected by the Federal Confidentiality of Alcohol and Drug Abuse Patient Records regulations: The Federal rules restrict any use of the information to criminally investigate or prosecute any alcohol or drug abuse patient.[facility] the event this information is protected by the Federal Confidentiality of Alcohol and Drug Abuse Patient Records regulations: The Federal rules restrict any use of the information to criminally investigate or prosecute any alcohol or drug abuse patient.[facility]In the event this information is protected by the Federal Confidentiality of Alcohol and Drug Abuse Patient Records regulations: The Federal rules restrict any use of the information to criminally investigate or prosecute any alcohol or drug abuse patient.[facility]In the event this information is protected by the Federal Confidentiality of Alcohol and Drug Abuse Patient Records regulations: The Federal rules restrict any use of the information to criminally investigate or prosecute any alcohol or drug abuse patient.[facility]In the event this information is protected by the Federal Confidentiality of Alcohol and Drug Abuse Patient Records regulations: The Federal rules restrict any use of the information to criminally investigate or prosecute any alcohol or drug abuse patient.[facility]In the event this information is protected by the Federal Confidentiality of Alcohol and Drug Abuse Patient Records regulations: The Federal rules restrict any use of the information to criminally investigate or prosecute any alcohol or drug abuse patient.[facility]In the event this information is protected by the Federal Confidentiality of Alcohol and Drug Abuse Patient Records regulations: The Federal rules restrict any use of the information to criminally investigate or prosecute any alcohol or drug abuse patient.[facility]In the event this information is protected by the Federal Confidentiality of Alcohol and Drug Abuse Patient Records regulations: The Federal rules restrict any use of the information to criminally investigate or prosecute any alcohol or drug abuse patient.[facility]In the event this information is protected by the Federal Confidentiality of Alcohol and Drug Abuse Patient Records regulations: The Federal rules restrict any use of the information to criminally investigate or prosecute any alcohol or drug abuse patient.[facility] HospitalIn the event this information is protected by the Federal Confidentiality of Alcohol and Drug Abuse Patient Records regulations: The Federal rules restrict any use of the information to criminally investigate or prosecute any alcohol or drug abuse patient.[facility] HospitalIn the event this information is protected by the Federal Confidentiality of Alcohol and Drug Abuse Patient Records regulations: The Federal rules restrict any use of the information to criminally investigate or prosecute any alcohol or drug abuse patient.[facility]In the event this information is protected by the Federal Confidentiality of Alcohol and Drug Abuse Patient Records regulations: The Federal rules restrict any use of the information to criminally investigate or prosecute any alcohol or drug abuse patient.[facility]In the event this information is protected by the Federal Confidentiality of Alcohol and Drug Abuse Patient Records regulations: The Federal rules restrict any use of the information to criminally investigate or prosecute any alcohol or drug abuse patient.[facility] HospitalIn the event this information is protected by the Federal Confidentiality of Alcohol and Drug Abuse Patient Records regulations: The Federal rules restrict any use of the information to criminally investigate or prosecute any alcohol or drug abuse patient.[facility] HospitalIn the event this information is protected by the Federal Confidentiality of Alcohol and Drug Abuse Patient Records regulations: The Federal rules restrict any use of the information to criminally investigate or prosecute any alcohol or drug abuse patient.[facility] HospitalIn the event this information is protected by the Federal Confidentiality of Alcohol and Drug Abuse Patient Records regulations: The Federal rules restrict any use of the information to criminally investigate or prosecute any alcohol or drug abuse patient.[facility] HospitalIn the event this information is protected by the Federal Confidentiality of Alcohol and Drug Abuse Patient Records regulations: The Federal rules restrict any use of the information to criminally investigate or prosecute any alcohol or drug abuse patient.[facility]In the event this information is protected by the Federal Confidentiality of Alcohol and Drug Abuse Patient Records regulations: The Federal rules restrict any use of the information to criminally investigate or prosecute any alcohol or drug abuse patient.[facility] HospitalIn the event this information is protected by the Federal Confidentiality of Alcohol and Drug Abuse Patient Records regulations: The Federal rules restrict any use of the information to criminally investigate or prosecute any alcohol or drug abuse patient.[facility] HospitalIn the event this information is protected by the Federal Confidentiality of Alcohol and Drug Abuse Patient Records regulations: The Federal rules restrict any use of the information to criminally investigate or prosecute any alcohol or drug abuse patient.[facility] HospitalIn the event this information is protected by the Federal Confidentiality of Alcohol and Drug Abuse Patient Records regulations: The Federal rules restrict any use of the information to criminally investigate or prosecute any alcohol or drug abuse patient.[facility] HospitalIn the event this information is protected by the Federal Confidentiality of Alcohol and Drug Abuse Patient Records regulations: The Federal rules restrict any use of the information to criminally investigate or prosecute any alcohol or drug abuse patient.[facility] HospitalIn the event this information is protected by the Federal Confidentiality of Alcohol and Drug Abuse Patient Records regulations: The Federal rules restrict any use of the information to criminally investigate or prosecute any alcohol or drug abuse patient.[facility] HospitalIn the event this information is protected by the Federal Confidentiality of Alcohol and Drug Abuse Patient Records regulations: The Federal rules restrict any use of the information to criminally investigate or prosecute any alcohol or drug abuse patient.[facility] HospitalIn the event this information is protected by the Federal Confidentiality of Alcohol and Drug Abuse Patient Records regulations: The Federal rules restrict any use of the information to criminally investigate or prosecute any alcohol or drug abuse patient.[facility] HospitalIn the event this information is protected by the Federal Confidentiality of Alcohol and Drug Abuse Patient Records regulations: The Federal rules restrict any use of the information to criminally investigate or prosecute any alcohol or drug abuse patient.[facility] HospitalIn the event this information is protected by the Federal Confidentiality of Alcohol and Drug Abuse Patient Records regulations: The Federal rules restrict any use of the information to criminally investigate or prosecute any alcohol or drug abuse patient.[facility] HospitalIn the event this information is protected by the Federal Confidentiality of Alcohol and Drug Abuse Patient Records regulations: The Federal rules restrict any use of the information to criminally investigate or prosecute any alcohol or drug abuse patient.[facility] HospitalIn the event this information is protected by the Federal Confidentiality of Alcohol and Drug Abuse Patient Records regulations: The Federal rules restrict any use of the information to criminally investigate or prosecute any alcohol or drug abuse patient.[facility] HospitalIn the event this information is protected by the Federal Confidentiality of Alcohol and Drug Abuse Patient Records regulations: The Federal rules restrict any use of the information to criminally investigate or prosecute any alcohol or drug abuse patient.[facility] HospitalIn the event this information is protected by the Federal Confidentiality of Alcohol and Drug Abuse Patient Records regulations: The Federal rules restrict any use of the information to criminally investigate or prosecute any alcohol or drug abuse patient.[facility] HospitalIn the event this information is protected by the Federal Confidentiality of Alcohol and Drug Abuse Patient Records regulations: The Federal rules restrict any use of the information to criminally investigate or prosecute any alcohol or drug abuse patient.[facility] HospitalIn the event this information is protected by the Federal Confidentiality of Alcohol and Drug Abuse Patient Records regulations: The Federal rules restrict any use of the information to criminally investigate or prosecute any alcohol or drug abuse patient.[facility] HospitalIn the event this information is protected by the Federal Confidentiality of Alcohol and Drug Abuse Patient Records regulations: The Federal rules restrict any use of the information to criminally investigate or prosecute any alcohol or drug abuse patient.[facility] HospitalIn the event this information is protected by the Federal Confidentiality of Alcohol and Drug Abuse Patient Records regulations: The Federal rules restrict any use of the information to criminally investigate or prosecute any alcohol or drug abuse patient.[facility] HospitalIn the event this information is protected by the Federal Confidentiality of Alcohol and Drug Abuse Patient Records regulations: The Federal rules restrict any use of the information to criminally investigate or prosecute any alcohol or drug abuse patient.[facility] HospitalIn the event this information is protected by the Federal Confidentiality of Alcohol and Drug Abuse Patient Records regulations: The Federal rules restrict any use of the information to criminally investigate or prosecute any alcohol or drug abuse patient.[facility] the event this information is protected by the Federal Confidentiality of Alcohol and Drug Abuse Patient Records regulations: The Federal rules restrict any use of the information to criminally investigate or prosecute any alcohol or drug abuse patient.[facility] HospitalIn the event this information is protected by the Federal Confidentiality of Alcohol and Drug Abuse Patient Records regulations: The Federal rules restrict any use of the information to criminally investigate or prosecute any alcohol or drug abuse patient.[facility] HospitalIn the event this information is protected by the Federal Confidentiality of Alcohol and Drug Abuse Patient Records regulations: The Federal rules restrict any use of the information to criminally investigate or prosecute any alcohol or drug abuse patient.[facility] the event this information is protected by the Federal Confidentiality of Alcohol and Drug Abuse Patient Records regulations: The Federal rules restrict any use of the information to criminally investigate or prosecute any alcohol or drug abuse patient.[facility] HospitalIn the event this information is protected by the Federal Confidentiality of Alcohol and Drug Abuse Patient Records regulations: The Federal rules restrict any use of the information to criminally investigate or prosecute any alcohol or drug abuse patient.[facility] HospitalIn the event this information is protected by the Federal Confidentiality of Alcohol and Drug Abuse Patient Records regulations: The Federal rules restrict any use of the information to criminally investigate or prosecute any alcohol or drug abuse patient.[facility] HospitalIn the event this information is protected by the Federal Confidentiality of Alcohol and Drug Abuse Patient Records regulations: The Federal rules restrict any use of the information to criminally investigate or prosecute any alcohol or drug abuse patient.[facility] HospitalIn the event this information is protected by the Federal Confidentiality of Alcohol and Drug Abuse Patient Records regulations: The Federal rules restrict any use of the information to criminally investigate or prosecute any alcohol or drug abuse patient.[facility] HospitalIn the event this information is protected by the Federal Confidentiality of Alcohol and Drug Abuse Patient Records regulations: The Federal rules restrict any use of the information to criminally investigate or prosecute any alcohol or drug abuse patient.[facility] Reason for Visit (unrecogniz ed section and content) Reason Comments Physical Specialty Diagnoses / Procedures Referred By Contac t Referred To Contact Family Practice / FAMILY MEDICINE Diagnoses Follow-up exam physical 6 months Procedures OFFICE/OUTPATIENT ESTABLISHED MOD MDM 30-39 MIN 4C MD Arielle Huffman Jeffrey A, MD [address] [place] [address] Referral ID Status Reason Start Date Expiration Date Visits Requested Visits Authorized [id number] Denied 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 Required - 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 Payor OON Notification Letter Clearance Not Met - 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 Advise to Postpone/Resched ule or Not Proceed 10/22/2021 01/20/2022 1 0 Reason Comments F/U 6 months Specialty Diagnoses / Procedures Referred By Contac t Referred To Contact Family Medicine / FAMILY MEDICINE Diagnoses Follow-up exam 6 month follow up Procedures 4C Jorden Pacheco MD [address] [place] [address] Jorden Hartmann MD [address] [place] [address] Referral ID Status Reason Start Date Expiration Date Visits Re quested Visits Authorized [id number] Closed 04/01/2022 04/29/2022 1 1 Reason Comments Results Specialty Diagnoses / Procedures Referred By Contac t Referred To Contact FAMILY MEDICINE Diagnoses Uncontrolled type 2 diabetes mellitus with hyperglycemia (HCC) financial clearance Procedures OFFICE/OUTPATIENT ESTABLISHED MOD MDM 30-39 MIN financial clearance Jorden Hartmann MD [address] [place] [address] [facility] [address] [place] [address] Referral ID Status Reason Start Date Expiration Date V isits Requested Visits Authorized [id number] Closed 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 Required - OON Payor 10/12/2022 02/21/2023 1 1 Reason Onset Date Comments Refill Request 11/27/2022 Reason Comments Follow Up Specialty Diagnoses / Procedures Referred By Contac t Referred To Contact FAMILY MEDICINE Diagnoses oon clearance Procedures oon clearance Jorden Hartmann MD [address] [place] [address] [facility] [address] [address] [place] [address] Referral ID Status Reason Start Date Expiration Date V isits Requested Visits Authorized [id number] Closed 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 Required - OON Payor 10/27/2022 12/03/2022 1 1 Reason Onset Date Comments Refill Request 01/11/2023 Reason Comments Opened In Error Reason Onset Date Comments Refill Request 04/28/2023 Reason Onset Date Comments Refill Request 07/27/2023 Reason Comments Appointment Reason Comments Appointment Referral to Urology Reason Comments Patient Question Reason Onset Date Comments Refill Request 10/27/2023 Reason Comments Refill Request Reason Comments Information Patient Update Reason Comments Insurance Authorization Reason Comments Consult Elevated PSA Specialty Diagnoses / Procedures Referred By Contac t Referred To Contact Urology Diagnoses Elevated PSA Procedures CONSULT TO UROLOGY OFFICE/OUTPATIENT NEW HIGH MDM 60 MINUTES Jorden Hartmann MD [address] [place] [address] Referral ID Status Reason Start Date Expiration Date V isits Requested Visits Authorized [id number] Closed PCP Requested Referral 09/10/2023 09/09/2024 1 1 Reason Comments Radiology XR Reason Comments Results Appointment Reason Comments Patient Update Reason Onset Date Comments Refill Request 02/01/2024 Reason Comments Follow Up Elevated PSA Results Established Patient 2 week follow up Reason Comments Musculoskeletal Problem Right hand 1st a nd 2nd digits, bilateral back of thighs go numb and burn Reason Comments Consult Specialty Diagnoses / Procedures Referred By Contac t Referred To Contact Radiation Oncology Diagnoses Prostate cancer (HCC) Procedures RAD/ONC CONSULT OFFICE/OUTPATIENT [facility] 60 MINUTES Ayan Jefferson Jr., MD [address] [place] [address] Referral ID Status Reason Start Date Expiration Date V isits Requested Visits Authorized [id number] Closed PCP Requested Referral 03/14/2024 03/14/2025 1 1 Reason Comments Prostate Cancer Reason Comments Patient Education Reason Onset Date Comments Simulation Request Form 04/07/2024 Reason Comments Radiotherapy On-treatment Visit Reason Comments Outside Imaging Reason Comments Radiotherapy On-treatment Visit Fx # 15 Reason Comments Social Work Services Reason Comments Outside US Reason Comments Recheck Reason Comments Outside Ortho Reason Comments CARD New Patient Consult Referred by PCP for CADPMH: CAD, cardiomyopathy, Cath and stents (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, YESENIA x 2 to the prox and mid LAD), HTN, CHF, HLD Specialty Diagnoses / Procedures Referred By Contac t Referred To Contact Cardiology Diagnoses Coronary artery disease involving [place] coronary artery of [place] heart without angina pectoris Procedures CONSULT TO CARDIOLOGY OFFICE/OUTPATIENT [facility] 60 MINUTES Debora Martinez PA-C [address] [place] [address] Phone: tel: fax: Referral ID Status Reason Start Date Expiration Date V isits Requested Visits Authorized [id number] Closed PCP Requested Referral 03/17/2024 03/17/2025 1 1 Reason Onset Date Comments Refill Request 08/04/2024 Reason Comments Abstract Outside Imaging Reason Comments Reminder Call Reason Comments Forms Cardiac Clearance Reason Comments Abstract Orthopaedic OV note Reason Comments Follow Up Prostate Cancer Reason Comments Orders Patient Update Appointment Reason Comments Schedule Surgery Orders Reason Comments Established Patient CABG then PAT Coronary Artery Disease Reason Onset Date Comments Results 10/26/2024 Reason Comments Established Patient PAT CABG Reason Comments Preparations For Procedures Direct PCI Care Teams (unrecognized sec tion and content) Rn Staff Relationship Specialty Start Date End Date Jorden Hartmann MD [address] [place] [address] PCP - General Family Practice 01/29/[facility] [address] [place] [address] Pharmacist Pharmacy 05/06/20 Rn Staff Relationship Specialty Start Date End Date Jorden Hartmann MD [address] [place] [address] PCP - General Family Medicine 01/29/15 [facility] [address] [place] [address] Pharmacist Pharmacy 05/06/20 Rn Staff Relationship Specialty Start Date End Date Jorden Hartmann MD [address] [place] [address] PCP - General Family Medicine 01/29/15 Ericka Luo, [facility] [address] [place] [address] Pharmacist Pharmacy 05/06/20 Rn Staff Relationship Specialty Start Date End Date Jorden Hartmann MD [address] [place] [address] PCP - General Family Medicine 01/29/15 Ericka Luo, [facility] [address] [place] [address] Pharmacist Pharmacy 05/06/20 Rn Staff Relationship Specialty Start Date End Date Jorden Hartmann MD [address] [place] [address] PCP - General Family Medicine 01/29/15 [facility] [address] [place] [address] Pharmacist Pharmacy 05/06/20 Rn Staff Relationship Specialty Start Date End Date Jorden Hartmann MD [address] [place] [address] PCP - General Family Medicine 01/29/15 [facility] [address] [place] [address] Pharmacist Pharmacy 05/06/20 Rn Staff Relationship Specialty Start Date End Date Jorden Hartmann MD [address] [place] [address] PCP - General Family Medicine 01/29/15 [facility] [address] [place] [address] Pharmacist Pharmacy 05/06/20 Rn Staff Relationship Specialty Start Date End Date Jorden Hartmann MD [address] [place] [address] PCP - General Family Medicine 01/29/15 Rn Staff Relationship Specialty Start Date End Date Jorden Hartmann MD [address] [place] [address] PCP - General Family Medicine 01/29/15 Rn Staff Relationship Specialty Start Date End Date Jorden Hartmann MD [address] [place] [address] PCP - General Family Medicine 01/29/15 Rn Staff Relationship Specialty Start Date End Date Jorden Hartmann MD [address] [place] [address] PCP - General Family Medicine 01/29/15 Rn Staff Relationship Specialty Start Date End Date Jorden Hartmann MD [address] [place] [address] PCP - General Family Medicine 01/29/15 Rn Staff Relationship Specialty Start Date End Date Jorden Hartmann MD [address] [place] [address] PCP - General Family Medicine 01/29/15 Rn Staff Relationship Specialty Start Date End Date Jorden Hartmann MD [address] [place] [address] PCP - General Family Medicine 01/29/15 Rn Staff Relationship Specialty Start Date End Date Jorden Hartmann MD [address] [place] [address] PCP - General Family Medicine 01/29/15 Rn Staff Relationship Specialty Start Date End Date Jorden Hartmann MD [address] [place] [address] PCP - General Family Medicine 01/29/15 Rn Staff Relationship Specialty Start Date End Date Jorden Hartmann MD [address] [place] [address] PCP - General Family Medicine 01/29/15 Rn Staff Relationship Specialty Start Date End Date Jorden Hartmann MD [address] [place] [address] PCP - General Family Medicine 01/29/15 Rn Staff Relationship Specialty Start Date End Date Jorden Hartmann MD [address] [place] [address] PCP - General Family Medicine 01/29/15 Rn Staff Relationship Specialty Start Date End Date Jorden Hartmann MD [address] [place] [address] PCP - General Family Medicine 01/29/15 Rn Staff Relationship Specialty Start Date End Date Jorden Hartmann MD [address] [place] [address] PCP - General Family Medicine 01/29/15 Shawnee Belle, ROBERTO.CLEANING AND MAINTENANCE WORKER [address] [place] [address] [employer] [facility] 01/29/24 Debora Martinez PA-C [address] [place] [address] [employer] [facility] 01/29/24 Rn Staff Relationship Specialty Start Date End Date Jorden Hartmann MD [address] [place] [address] PCP - General Family Medicine 01/29/15 Shawnee Belle, ROBERTO.CLEANING AND MAINTENANCE WORKER [address] [place] [address] [employer] [facility] 01/29/24 Debora Martinez PA-C [address] [place] [address] [employer] [facility] 01/29/24 Rn Staff Relationship Specialty Start Date End Date Jorden Hartmann MD [address] [place] [address] PCP - General Family Medicine 01/29/15 Shawnee Belle, DIRECTOR OF SCIENCE.CLEANING AND MAINTENANCE WORKER [address] [place] [address] [employer] [facility] 01/29/24 Debora Martinez PA-C [address] [place] [address] [facility] 01/29/24 Rn Staff Relationship Specialty Start Date End Date Jorden Hartmann MD [address] [place] [address] PCP - General Family Medicine 01/29/15 Shawnee Belle, DIRECTOR OF SCIENCE.CLEANING AND MAINTENANCE WORKER [address] [place] [address] [employer] [facility] 01/29/24 Debora Martinez PA-C [address] [place] [address] [employer] [facility] 01/29/24 Rn Staff Relationship Specialty Start Date End Date Jorden Hartmann MD [address] [place] [address] PCP - General Family Medicine 01/29/15 Shawnee Belle, DIRECTOR OF SCIENCE.CLEANING AND MAINTENANCE WORKER [address] [place] [address] [employer] [facility] 01/29/24 Debora Martinez PA-C [address] [place] [address] [employer] [facility] 01/29/24 Hayley Gutierrez MD [address] [place] [address] Radiation Oncology 03/21/24 Rn Staff Relationship Specialty Start Date End Date Jorden Hartmann MD [address] [place] [address] PCP - General Family Medicine 01/29/15 Shawnee Belle APRN.CLEANING AND MAINTENANCE WORKER [address] [place] [address] [employer] [facility] 01/29/24 Debora Martinez PA-C [address] [place] [address] [employer] [facility] 01/29/24 Hayley Gutierrez MD [address] [place] [address] Radiation Oncology 03/21/24 Rn Staff Relationship Specialty Start Date End Date Jorden Hartmann MD [address] [place] [address] PCP - General Family Medicine 01/29/15 Shawnee Belle APRN.CLEANING AND MAINTENANCE WORKER [address] [place] [address] [employer] [facility] 01/29/24 Debora Martinez PA-C [address] [place] [address] [employer] [facility] 01/29/24 Hayley Gutierrez MD [address] [place] [address] Radiation Oncology 03/21/24 Rn Staff Relationship Specialty Start Date End Date Jorden Hartmann MD [address] [place] [address] PCP - General Family Medicine 01/29/15 Shawnee Belle APRN.CLEANING AND MAINTENANCE WORKER [address] [place] [address] [employer] [facility] 01/29/24 Debora Martinez PA-C [address] [place] [address] [employer] [facility] 01/29/24 Hayley Gutierrez MD [address] [place] [address] Radiation Oncology 03/21/24 Rn Staff Relationship Specialty Start Date End Date Jorden Hartmann MD [address] [place] [address] PCP - General Family Medicine 01/29/15 Shawnee Belle, DIRECTOR OF SCIENCE.CLEANING AND MAINTENANCE WORKER [address] [place] [address] [employer] [facility] 01/29/24 Debora Martinez PA-C [address] [place] [address] [employer] [facility] 01/29/24 Hayley Gutierrez MD [address] [place] [address] Radiation Oncology 03/21/24 Rn Staff Relationship Specialty Start Date End Date Jorden Hartmann MD [address] [place] [address] PCP - General Family Medicine 01/29/15 Shawnee Belle, ROBERTO.CLEANING AND MAINTENANCE WORKER [address] [place] [address] [employer] [facility] 01/29/24 Debora Martinez PA-C [address] [place] [address] [employer] [facility] 01/29/24 Hayley Gutierrez MD [address] [place] [address] Radiation Oncology 03/21/24 Rn Staff Relationship Specialty Start Date End Date Jorden Hartmann MD [address] [place] [address] PCP - General Family Medicine 01/29/15 Shawnee Belle, DIRECTOR OF SCIENCE.CLEANING AND MAINTENANCE WORKER [address] [place] [address] [employer] [facility] 01/29/24 Debora Martinez PA-C [address] [place] [address] [employer] [facility] 01/29/24 Hayley Gutierrez MD [address] [place] [address] Radiation Oncology 03/21/24 Rn Staff Relationship Specialty Start Date End Date Jorden Hartmann MD [address] [place] [address] PCP - General Family Medicine 01/29/15 Shawnee Belle, DIRECTOR OF SCIENCE.CLEANING AND MAINTENANCE WORKER [address] [place] [address] [employer] [facility] 01/29/24 Debora Martinez PA-C [address] [place] [address] [facility] 01/29/24 Hayley Gutierrez MD [address] [place] [address] Radiation Oncology 03/21/24 Rn Staff Relationship Specialty Start Date End Date Jorden Hartmann MD [address] [place] [address] PCP - General Family Medicine 01/29/15 Shawnee Belle, DIRECTOR OF SCIENCE.CLEANING AND MAINTENANCE WORKER [address] [place] [address] [employer] [facility] 01/29/24 Debora Martinez PA-C [address] [place] [address] [employer] [facility] 01/29/24 Hayley Gutierrez MD [address] [facility] [place] [address] Radiation Oncology 03/21/24 Rn Staff Relationship Specialty Start Date End Date Jorden Hartmann MD [address] [place] [address] PCP - General Family Medicine 01/29/15 Shawnee Belle APRN.CLEANING AND MAINTENANCE WORKER [address] [place] [address] [employer] [facility] 01/29/24 Debora Martinez PA-C [address] [place] [address] [employer] [facility] 01/29/24 Hayley Gutierrez MD [address] [place] [address] Radiation Oncology 03/21/24 Rn Staff Relationship Specialty Start Date End Date Jorden Hartmann MD [address] [place] [address] PCP - General Family Medicine 01/29/15 Shawnee Belle APRN.CLEANING AND MAINTENANCE WORKER [address] [place] [address] [facility] 01/29/24 Debora Martinez PA-C [address] [place] [address] [employer] [facility] 01/29/24 Hayley Gutierrez MD [address] [place], [place] [address] [phone] Radiation Oncology 03/21/24 Team Status: Active Member Role Status Dates Dr. Jorden Hartmann MD Primary Care Provider Active Team Status: Inactive Member Role Status Dates Dr. Jorden Hartmann MD Primary Care Provider Active Start: April 20, 2024 End: April 20, 2024 Dr. Jorden Hartmann MD Referring Provider Active Start: April 20, 2024 End: April 20, 2024 Dr. Guru Antony MD Attending Provider Active Start: April 20, 2024 End: April 20, 2024 Team Status: Inactive Member Role Status Dates Dr. Jorden Hartmann MD Primary Care Provider Active Start: May 04, 2024 End: May 04, 2024 Dr. Guru Antony MD Attending Provider Active Start: May 04, 2024 End: May 04, 2024 Dr. Guru Antony MD Referring Provider Active Start: May 04, 2024 End: May 04, 2024 Team Status: Inactive Member Role Status Dates Dr. Jorden Hartmann MD Primary Care Provider Active Start: May 11, 2024 End: May 11, 2024 Dr. Jorden Hartmann MD Referring Provider Active Start: May 11, 2024 End: May 11, 2024 Dr. Guru Antony MD Attending Provider Active Start: May 11, 2024 End: May 11, 2024 Rn Staff Relationship Specialty Start Date End Date Jorden Hartmann MD [address] [place], [place] [id number] PCP - General Family Medicine 01/29/15 Shawnee Belle APRN.CNP [address] [place], [place] [id number] [employer] [facility] 01/29/24 Debora Martinez PA-C [address] [place], [place] 920361 [employer] [facility] 01/29/24 Hayley Gutierrez MD [address] [place] [address] [id number] Radiation Oncology 03/21/24 Rn Staff Relationship Specialty Start Date End Date Jorden Hartmann MD [address] [place], [place] [id number] PCP - General Family Medicine 01/29/15 Shawnee Belle APRN.[employer] MAINTENANCE WORKER [address] [place], [place] [phone] [employer] [facility] 01/29/24 Debora Martinez PA-C [address] [place] [address] [employer] [facility] 01/29/24 Hayley Gutierrez MD [address] [facility] [place] [address] Radiation Oncology 03/21/24 Venita Ochoa LISW [address] [place] [address] [employer] Hematology/Oncology 05/25/24 Rn Staff Relationship Specialty Start Date End Date Jorden Hartmann MD [address] [place] [address] PCP - General Family Medicine 05/29/24 Shawnee Belle APRN.[employer]ANING AND MAINTENANCE WORKER [facility] [place], [place] [phone] [employer] [facility] 01/29/24 Debora Martinez PA-C [address] [facility] [place] [address] [employer] [facility] 01/29/24 Hayley Gutierrez MD [address] [facility] [place] [address] Radiation Oncology 03/21/24 Venita Ochoa LISW [address] [place] [address] [employer] Hematology/Oncology 05/25/24 Rn Staff Relationship Specialty Start Date End Date Jorden Hartmann MD [address] [place], [place] 289341 PCP - General Family Medicine 05/29/24 Shawnee Belle APRN.[employer]ING [employer] MAINTENANCE WORKER [address] [place] [address] [employer] [facility] 01/29/24 Debora Martinez PA-C [address] [place] [address] [facility] Family Medicine 01/29/24 Hayley Gutierrez MD [address] [facility] [place] [address] Radiation Oncology 03/21/24 Venita Ochoa LISW [address] [place] [address] [employer] Hematology/Oncology 05/25/24 Rn Staff Relationship Specialty Start Date End Date Jorden Hartmann MD [address] [place] [address] PCP - General Family Medicine 05/29/24 Shawnee eBlle, ROBERTO.CLEANING AND MAINTENANCE WORKER [address] [place] [address] [facility] Family [facility] 01/29/24 Debora Martinez PA-C [address] [place] [address] [facility] Family Medicine 01/29/24 Hayley Gutierrez MD [address] [facility] [place] [address] Radiation Oncology 03/21/24 Venita Ochoa LISW [address] [place] [address] [employer] Hematology/Oncology 05/25/24 Rn Staff Relationship Specialty Start Date End Date Jorden Hartmann MD [address] [place] [address] PCP - General Family Medicine 05/29/24 Shawnee Belle APRN.[facility] [address] [place] [address] [employer] [facility] 01/29/24 Debora Martinez PA-C [address] [place] [address] [employer] [facility] 01/29/24 Hayley Gutierrez MD [address] [facility] [place] [address] Radiation Oncology 03/21/24 Venita Ochoa, [place] [address] [place] [address] [employer] Hematology/Oncology 05/25/24 Team Status: Inactive Member Role Status Dates Dr. Jorden Hartmann MD Primary Care Provider Active Start: April 20, 2024 End: April 20, 2024 Dr. Guru Antony MD Attending Provider Active Start: April 20, 2024 End: April 20, 2024 Debora KENNEDY PA Referring Provider Active Start: April 20, 2024 End: April 20, 2024 Team Status: Inactive Member Role Status Dates Dr. Jorden Hartmann MD Primary Care Provider Active Start: May 26, 2024 End: May 26, 2024 MARCIA Roper Attending Provider Active Star t: May 26, 2024 End: May 26, 2024 Dr. Guru Antony MD Referring Provider Active Start: May 26, 2024 End: May 26, 2024 Team Status: Inactive Member Role Status Dates Dr. Jorden Hartmann MD Primary Care Provider Active Start: June 12, 2024 End: June 12, 2024 MARCIA Roper Attending Provider Active Star t: June 12, 2024 End: June 12, 2024 MARCIA Roper Referring Provider Active Star t: June 12, 2024 End: June 12, 2024 Team Status: Active Member Role Status Dates Dr. Jorden Hartmann MD Primary Care Provider Active Start: June 12, 2024 Dr. Cornell Self MD Attending Provider Active S tart: June 12, 2024 MARCIA Roper Referring Provider Active Star t: June 12, 2024 Team Status: Inactive Member Role Status Dates Dr. Jorden Hartmann MD Primary Care Provider Active Start: June 20, 2024 End: June 20, 2024 MARCIA Roper Attending Provider Active Star t: June 20, 2024 End: June 20, 2024 MARCIA Roper Referring Provider Active Star t: June 20, 2024 End: June 20, 2024 Team Status: Active Member Role Status Dates Dr. Jorden Hartmann MD Primary Care Provider Active Start: July 04, 2024 Dr. Jorden Hartmann MD Referring Provider Active Start: July 04, 2024 MARCIA Pérez Attending Provider Active Star t: July 04, 2024 Team Status: Inactive Member Role Status Dates Dr. Jorden Hartmann MD Primary Care Provider Active Start: July 04, 2024 End: July 04, 2024 Dr. Braxton Moran MD Attending Provider Active S tart: July 04, 2024 End: July 04, 2024 Team Status: Inactive Member Role Status Dates Dr. Jorden Hartmann MD Primary Care Provider Active Start: July 04, 2024 End: July 04, 2024 Dr. Jorden Hartmann MD Referring Provider Active Start: July 04, 2024 End: July 04, 2024 MARCIA Pérez Attending Provider Active Star t: July 04, 2024 End: July 04, 2024 Rn Staff Relationship Specialty Start Date End Date Jorden Hartmann MD [address] [place] [address] PCP - General Family Medicine 05/29/24 Shawnee Belle APRN.[employer] MAINTENANCE WORKER [address] [place] [address] [employer] [facility] 01/29/24 Debora Martinez PA-C [address] [place] [address] [employer] [facility] 01/29/24 Hayley Gutierrez MD [address] [place] [address] Radiation Oncology 03/21/24 Venita Ochoa LISW [address] [place] [address] [employer] Hematology/Oncology 05/25/24 Rn Staff Relationship Specialty Start Date End Date Jorden Hartmann MD [address] [place] [address] PCP - General Family Medicine 05/29/24 Hayley Gutierrez MD [address] [place] [address] Radiation Oncology 03/21/24 Venita Ochoa LISW [address] [place] [address] [employer] Hematology/Oncology 05/25/24 Shawnee Belle APRN.[facility] [address] [place] [address] [employer] [facility] 07/24/24 Debora Martinez PA-C [address] [place] [address] [employer] [facility] 07/24/24 Monico Amaro MD [address] [place] [address] Cardiology 08/01/24 Rn Staff Relationship Specialty Start Date End Date Jorden Hartmann MD [address] [place] [address] PCP - General Family Medicine 05/29/24 Hayley Gutierrez MD [address] [place], [place] [id number] Radiation Oncology 03/21/24 Venita Ochoa LISW [address] [place] [address] [employer] Hematology/Oncology 05/25/24 Shawnee Belle APRN.[facility] [address] [place], [place] [phone] [employer] [facility] 07/24/24 Debora Martinez PA-C [address] [place] [address] [id number] [employer] [facility] 07/24/24 Monico Amaro MD [address] [place], [place] [phone] Cardiology 08/01/24 Team Status: Inactive Member Role Status Dates Dr. Jorden Hartmann MD Primary Care Provider Active Start: August 11, 2024 End: August 11, 2024 Dr. Jorden Hartmann MD Referring Provider Active Start: August 11, 2024 End: August 11, 2024 Dr. Guru Antony MD Attending Provider Active Start: August 11, 2024 End: August 11, 2024 Team Status: Active Member Role/Relationship Status Dates Dr. Jorden Hartmann MD Primary Care Provider Active Team Status: Inactive Member Role/Relationship Status Dates Dr. Jorden Hartmann MD Primary Care Provider Active Start: May 04, 2024 End: May 04, 2024 Dr. Guru Antony MD Attending Provider Active Start: May 04, 2024 End: May 04, 2024 Dr. Guru Antony MD Referring Provider Active Start: May 04, 2024 End: May 04, 2024 Team Status: Inactive Member Role/Relationship Status Dates Dr. Jorden Hartmann MD Primary Care Provider Active Start: May 11, 2024 End: May 11, 2024 Dr. Jorden Hartmann MD Referring Provider Active Start: May 11, 2024 End: May 11, 2024 Dr. Guru Antony MD Attending Provider Active Start: May 11, 2024 End: May 11, 2024 Team Status: Inactive Member Role/Relationship Status Dates Dr. Jorden Hartmann MD Primary Care Provider Active Start: May 26, 2024 End: May 26, 2024 MARCIA Roper Attending Provider Active Star t: May 26, 2024 End: May 26, 2024 Dr. Guru Antony MD Referring Provider Active Start: May 26, 2024 End: May 26, 2024 Team Status: Inactive Member Role/Relationship Status Dates Dr. Jorden Hartmann MD Primary Care Provider Active Start: June 12, 2024 End: June 12, 2024 MARCIA Roper Attending Provider Active Star t: June 12, 2024 End: June 12, 2024 MARCIA Roper Referring Provider Active Star t: June 12, 2024 End: June 12, 2024 Team Status: Active Member Role/Relationship Status Dates Dr. Jorden Hartmann MD Primary Care Provider Active Start: June 12, 2024 Dr. Cornell Self MD Attending Provider Active S tart: June 12, 2024 MARCIA Roper Referring Provider Active Star t: June 12, 2024 Team Status: Inactive Member Role/Relationship Status Dates Dr. Jorden Hartmann MD Primary Care Provider Active Start: June 20, 2024 End: June 20, 2024 MARCIA Roper Attending Provider Active Star t: June 20, 2024 End: June 20, 2024 MARCIA Roper Referring Provider Active Star t: June 20, 2024 End: June 20, 2024 Team Status: Inactive Member Role/Relationship Status Dates Dr. Jorden Hartmann MD Primary Care Provider Active Start: July 04, 2024 End: July 04, 2024 Dr. Jorden Hartmann MD Referring Provider Active Start: July 04, 2024 End: July 04, 2024 MARCIA Pérez Attending Provider Active Star t: July 04, 2024 End: July 04, 2024 Team Status: Inactive Member Role/Relationship Status Dates Dr. Jorden Hartmann MD Primary Care Provider Active Start: July 04, 2024 End: July 04, 2024 Dr. Braxton Moran MD Attending Provider Active S tart: July 04, 2024 End: July 04, 2024 Team Status: Inactive Member Role/Relationship Status Dates Dr. Jorden Hartmann MD Primary Care Provider Active Start: August 11, 2024 End: August 11, 2024 Dr. Jorden Hartmann MD Referring Provider Active Start: August 11, 2024 End: August 11, 2024 Dr. Guru Antony MD Attending Provider Active Start: August 11, 2024 End: August 11, 2024 Team Status: Inactive Member Role/Relationship Status Dates Dr. Jorden Hartmann MD Primary Care Provider Active Start: August 18, 2024 End: August 18, 2024 MARCIA Pérez Attending Provider Active Star t: August 18, 2024 End: August 18, 2024 MARCIA Pérez Referring Provider Active Star t: August 18, 2024 End: August 18, 2024 Rn Staff Relationship Specialty Start Date End Date Jorden Hartmann MD [address] [place] [address] [id number] PCP - General Family Medicine 05/29/24 Hayley Gutierrez MD [address] [place], [place] 171851 Radiation Oncology 03/21/24 Venita Ochoa LISW [address] [place] [address] [employer] Hematology/Oncology 05/25/24 Shawnee Belle APRN.[employer] MAINTENANCE WORKER [address] [place], [place] [id number] [employer] [facility] 07/24/24 Debora Martinez PA-C [address] [place] [address] [employer] [facility] 07/24/24 Monico Amaro MD [address] [place] [address] Cardiology 08/01/24 Rn Staff Relationship Specialty Start Date End Date Jorden Hartmann MD [address] [place] [address] PCP - General Family Medicine 05/29/24 Hayley Gutierrez MD [address] [place] [address] Radiation Oncology 03/21/24 Venita Ochoa LISW [address] [place] [address] [employer] Hematology/Oncology 05/25/24 Shawnee Belle APRN.[facility] [place] [address] [employer] [facility] 07/24/24 Debora Martinez PA-C [address] [place], [place] 017241 [employer] [facility] 07/24/24 Monico Amaro MD [address] [place] [address] Cardiology 08/01/24 Rn Staff Relationship Specialty Start Date End Date Jorden Hartmann MD [address] [place] [address] PCP - General Family Medicine 05/29/24 Hayley Gutierrez MD [address] [place] [address] Radiation Oncology 03/21/24 Venita Ochoa LISW [address] [place] [address] [employer] Hematology/Oncology 05/25/24 Shawnee Belle APRN.[employer] MAINTENANCE WORKER [address] [place] [address] [employer] [facility] 07/24/24 Debora Martinez PA-C [facility] [place] [address] [employer] [facility] 07/24/24 Monico Amaro MD [address] [place] [address] Cardiology 08/01/24 Rn Staff Relationship Specialty Start Date End Date Jodren Hartmann MD [address] [place] [address] PCP - General Family Medicine 05/29/24 Hayley Gutierrez MD [address] [place] [address] Radiation Oncology 03/21/24 Venita Ochoa LISW [address] [place] [address] [employer] Hematology/Oncology 05/25/24 Shawnee Belle APRN.[employer] MAINTENANCE WORKER [address] [place] [address] [employer] [facility] 07/24/24 Debora Martinez PA-C [address] [place] [address] [employer] [facility] 07/24/24 Monico Amaro MD [address] [place] [address] [place] [address] Cardiology 08/01/24 Team Status: Inactive Member Role/Relationship Status Dates Dr. Jorden Hartmann MD Primary Care Provider Active Start: May 26, 2024 End: May 26, 2024 MARCIA Roper Attending Provider Active Star t: May 26, 2024 End: May 26, 2024 Dr. Guru Antony MD Referring Provider Active Start: May 26, 2024 End: May 26, 2024 Team Status: Inactive Member Role/Relationship Status Dates Dr. Jorden Hartmann MD Primary Care Provider Active Start: June 12, 2024 End: June 12, 2024 MARCIA Roper Attending Provider Active Star t: June 12, 2024 End: June 12, 2024 MARCIA Roper Referring Provider Active Star t: June 12, 2024 End: June 12, 2024 Team Status: Active Member Role/Relationship Status Dates Dr. Jorden Hartmann MD Primary Care Provider Active Start: June 12, 2024 Dr. Cornell Self MD Attending Provider Active S tart: June 12, 2024 MARCIA Roper Referring Provider Active Star t: June 12, 2024 Team Status: Inactive Member Role/Relationship Status Dates Dr. Jorden Hartmann MD Primary Care Provider Active Start: June 20, 2024 End: June 20, 2024 MARCIA Roper Attending Provider Active Star t: June 20, 2024 End: June 20, 2024 MARCIA Roper Referring Provider Active Star t: June 20, 2024 End: June 20, 2024 Team Status: Inactive Member Role/Relationship Status Dates Dr. Jorden Hartmann MD Primary Care Provider Active Start: July 04, 2024 End: July 04, 2024 Dr. Jorden Hartmann MD Referring Provider Active Start: July 04, 2024 End: July 04, 2024 MARCIA Pérez Attending Provider Active Star t: July 04, 2024 End: July 04, 2024 Team Status: Inactive Member Role/Relationship Status Dates Dr. Jorden Hartmann MD Primary Care Provider Active Start: July 04, 2024 End: July 04, 2024 Dr. Braxton Moran MD Attending Provider Active S tart: July 04, 2024 End: July 04, 2024 Team Status: Inactive Member Role/Relationship Status Dates Dr. Jorden Hartmann MD Primary Care Provider Active Start: August 11, 2024 End: August 11, 2024 Dr. Jorden Hartmann MD Referring Provider Active Start: August 11, 2024 End: August 11, 2024 Dr. Guru Antony MD Attending Provider Active Start: August 11, 2024 End: August 11, 2024 Team Status: Inactive Member Role/Relationship Status Dates Dr. Jorden Hartmann MD Primary Care Provider Active Start: August 18, 2024 End: August 18, 2024 MARCIA Pérez Attending Provider Active Star t: August 18, 2024 End: August 18, 2024 MARCIA Pérez Referring Provider Active Star t: August 18, 2024 End: August 18, 2024 Team Status: Inactive Member Role/Relationship Status Dates Dr. Jorden Hartmann MD Primary Care Provider Active Start: September 14, 2024 End: September 14, 2024 Dr. Jorden Hartmann MD Referring Provider Active Start: September 14, 2024 End: September 14, 2024 Dr. Jorge Orlando MD Attending Provider Active Start: September 14, 2024 End: September 14, 2024 Rn Staff Relationship Specialty Start Date End Date Jorden Hartmann MD [address] [place] [address] PCP - General Family Medicine 05/29/24 Hayley Gutierrez MD [address] [place] [address] Radiation Oncology 03/21/24 Venita Ochoa LISW [address] [place] [address] [employer] Hematology/Oncology 05/25/24 Shawnee Belle APRN.[employer] MA[employer]TENANCE WORKER [address] [place], [place] [phone] [employer] [facility] 07/24/24 Debora Martinez PA-C [address] [place] [address] [employer] [facility] 07/24/24 Monico Amaro MD [address] [place] [address] Cardiology 08/01/24 Rn Staff Relationship Specialty Start Date End Date Jorden Hartmann MD [address] [place] [address] PCP - General Family Medicine 05/29/24 Hayley Gutierrez MD [address] [place] [address] Radiation Oncology 03/21/24 Venita Ochoa LISW [address] [place] [address] [employer] Hematology/Oncology 05/25/24 Shawnee Belle APRN.[employer] AND MAINTENANCE WORKER [address] [place] [address] [employer] [facility] 07/24/24 Debora Martinez PA-C [address] [place] [address] [employer] [facility] 07/24/24 Monico Amaro MD [address] [place] [address] Cardiology 08/01/24 Rn Staff Relationship Specialty Start Date End Date Jorden Hartmann MD [address] [place] [address] PCP - General Family Medicine 05/29/24 Hayley Gutierrez MD [address] [place] [address] Radiation Oncology 03/21/24 Venita Ochoa LISW [address] [place] [address] [employer] Hematology/Oncology 05/25/24 Shawnee Belle APRN.[employer] MAINTENANCE WORKER [address] [place], [place] [phone] [employer] [facility] 07/24/24 Debora Martinez PA-C [address] [place] [address] 440441 [employer] [facility] 07/24/24 Monico Amaro MD [address] [place] [address] Cardiology 08/01/24 Bebeto Clark MD [address] [address] Cardiology 09/26/24 Rn Staff Relationship Specialty Start Date End Date Jorden Hartmann MD [address] [place] [address] PCP - General Family Medicine 05/29/24 Hayley Gutierrez MD [address] [place] [address] Radiation Oncology 03/21/24 Venita Ochoa LISW [address] [place] [address] [employer] Hematology/Oncology 05/25/24 Shawnee Belle APRN.[employer] AND MAINTENANCE WORKER [address] [place], [place] 729331 [employer] [facility] 07/24/24 Debora Martinez PA-C [facility] [place], [place] 836101 [employer] [facility] 07/24/24 Monico Amaro MD [address] [place] [address] Cardiology 08/01/24 Bebeto Clark MD [address] [address] Cardiology 09/26/24 Rn Staff Relationship Specialty Start Date End Date Jorden Hartmann MD [address] [place] [address] PCP - General Family Medicine 05/29/24 Hayley Gutierrez MD [address] [place] [address] Radiation Oncology 03/21/24 Venita Ochoa LISW [address] [place] [address] [employer] Hematology/Oncology 05/25/24 Shawnee Belle APRN.[employer] MAINTENANCE WORKER [address] [place] [address] [facility] 07/24/24 Debora Martinez PA-C [facility] [place], [place] 897481 [employer] [facility] 07/24/24 Monico Amaro MD [address] [place] [address] Cardiology 08/01/24 Bebeto Clark MD [address] [address] Cardiology 09/26/24 Rn Staff Relationship Specialty Start Date End Date Jorden Hartmann MD [address] [place] [address] PCP - General Family Medicine 05/29/24 Hayley Gutierrez MD [address] [place] [address] Radiation Oncology 03/21/24 Venita Ochoa LISW [address] [place] [address] [employer] Hematology/Oncology 05/25/24 Shawnee Belle APRN.[facility] [address] [place] [address] [employer] [facility] 07/24/24 Debora Martinez PA-C [address] [place] [address] [employer] [facility] 07/24/24 Monico Amaro MD [address] [place] [address] Cardiology 08/01/24 Bebeto Clark MD [address] [address] Cardiology 09/26/24 Rn Staff Relationship Specialty Start Date End Date Jorden Hartmann MD [address] [place] [address] PCP - General Family Medicine 05/29/24 Hayley Gutierrez MD [address] [place] [address] Radiation Oncology 03/21/24 Venita Ochoa LISW [address] [place] [address] [employer] Hematology/Oncology 05/25/24 Shawnee Belle APRN.[employer] MAINTENANCE WORKER [address] [place], [place] [phone] [employer] [facility] 07/24/24 Debora Martinez PA-C [address] [place] [address] 413091 [employer] [facility] 07/24/24 Monico Amaro MD [address] [place] [address] Cardiology 08/01/24 Bebeto Clark MD [address] [address] Cardiology 09/26/24 Rn Staff Relationship Specialty Start Date End Date Jorden Hartmann MD [address] [place] [address] PCP - General Family Medicine 05/29/24 Hayley Gutierrez MD [address] [place] [address] Radiation Oncology 03/21/24 Venita Ochoa LISW [address] [place] [address] [employer] Hematology/Oncology 05/25/24 Shawnee Belle APRN.[employer] MAINTENANCE WORKER [address] [place] [address] [employer] [facility] 07/24/24 Debora Martinez PA-C [address] [place] [address] [phone] [employer] [facility] 07/24/24 Monico Amaro MD [address] [place] [address] Cardiology 08/01/24 Bebeto Clark MD [address] [place] [address] [place] [address] Cardiology 09/26/24 Rn Staff Relationship Specialty Start Date End Date Jorden Hartmann MD [address] [place] [address] PCP - General Family Medicine 05/29/24 Hayley Gutierrez MD [address] [place] [address] Radiation Oncology 03/21/24 Venita Ochoa LISW [address] [place] [address] [employer] Hematology/Oncology 05/25/24 Shawnee Belle APRN.[employer]TENA[employer] WORKER [address] [place] [address] [employer] [facility] 07/24/24 Debora Martinez PA-C [address] [place] [address] [employer] [facility] 07/24/24 Monico Amaro MD [address] [place] [address] Cardiology 08/01/24 Bebeto Clark MD [address] [address] Cardiology 09/26/24 Rn Staff Relationship Specialty Start Date End Date Jorden Hartmann MD [address] [place], [place] 085521 PCP - General Family Medicine 05/29/24 Hayley Gutierrez MD [address] [place], [place] 0708[address] Radiation Oncology 03/21/24 Venita Ochoa LISW [address] [place] [address] [employer] Hematology/Oncology 05/25/24 Shawnee Belle APRN.[facility] [address] [place], [place] 655811 [employer] [facility] 07/24/24 Debora Martinez PA-C [address] [place] [address] [phone] [employer] [facility] 07/24/24 Monico Amaro MD [address] [place] [address] Cardiology 08/01/24 Bebeto Clark MD [address] [address] Cardiology 09/26/24 Rn Staff Relationship Specialty Start Date End Date Jorden Hartmann MD [address] [place] [address] PCP - General Family Medicine 05/29/24 Hayley Gutierrez MD [address] [place] [address] Radiation Oncology 03/21/24 Venita Ochoa LISW [address] [place] [address] [employer] Hematology/Oncology 05/25/24 Shawnee Belle APRN.[employer]INTENAN[employer] WORKER [address] [place], [place] 838001 [facility] 07/24/24 Debora Martinez PA-C [address] [place], [place] 208581 [employer] Family [facility] 07/24/24 Monico Amaro MD [address] [place] [address] [phone] Cardiology 08/01/24 Bebeto Clark MD [address] [facility] [address] [place], [place] [id number] Cardiology 09/26/24 Goals (unrecognized section and content) Goals may be documented in a n alternate sectionGoals may be documented in an alternate sectionGoals may be documented in an alternate sectionGoals may be documented in an alternate sectionGoals may be documented in an alternate sectionGoals may be documented in an alternate section FOR RECORDS PERTAINING TO PATIENTS WHO ARE OR HAVE BEEN ENROLLED IN A CHEMICAL DEPENDENCY/SUBSTANCEABUSE PROGRAM, SOME INFORMATION MAY BE OMITTED. This clinical summary was aggregated from multiple sources. Caution should be exercised in using it in the provision of clinical care. This summary normalizes information from multiple sources, and as a consequence, information in this document may materially change the coding, format and clinical context of patient data. In addition, data may be omitted in some cases. CLINICAL DECISIONS SHOULD BE BASED ON THE PRIMARY CLINICAL RECORDS. [facility]. provides no warranty or guarantee of the accuracy or completeness of information in this document.
--- NOTE | 2024-12-11 22:26 | RAD_ITS ---
PROCEDURE: CHEST PA AND LATERAL 12/11/2024 REASON FOR EXAM: CHEST PAIN TECHNIQUE: Procedure Code: RADCXR Modality: DX Procedure: CHEST PA AND LATERAL COMPARISON: None. FINDINGS: Lungs/Pleura: Clear. No pneumothorax or pleural effusion. Dense nodular foci in the left upper and mid lung zones likely reflecting calcified granulomas. Heart/Mediastinum: Within normal limits. Bones/Soft tissues: Mild degenerative changes of the spine. RAD/Chest PA and Lateral IMPRESSION: No acute cardiopulmonary disease. Reading Location: [id number]
[2024-12-11 22:29] LABS: Hematocrit 37.4 % (40-54); Hemoglobin 12.2 g/dL (13.0-16.5); Immature Granulocytes Count 0.030 X10^3/uL (0.0-0.0); Mean Corp Hgb Conc 32.6 g/dL (32-36); Mean Corpuscular Volume 90.6 fL (80-94); Mean Platelet Vol. 9.1 fl (6.2-12.0); NRBC Flagged by Analyzer 0 % (0-5); Platelet Count 497 K/mm3 (150-450); RBC Distribution Width CV 14.5 % (11.6-14.6); RBC Distribution Width SD 47.9 fl (35.1-43.9); Red Blood Count 4.13 M/mm3 (4.6-6.2); White Blood Count 8.8 K/mm3 (4.4-11.0)
[2024-12-11 23:44] LABS: Anion Gap 18 (5-15); BUN 30 mg/dL (4-19); BUN/Creat Ratio 30.0 RATIO (10-20); Calcium,Total 9.1 mg/dL (7.6-11.0); Carbon Dioxide 19.5 mmol/L (21.0-32.0); Chloride 99 mmol/L (98-108); Estimated Creatinine Clearance 74.57 ml/min (50-250); Glucose 152 mg/dL (70-99); Potassium 4.3 mmol/L (3.3-5.1)
[2024-12-12] VITALS: PULSE 96; RESP 22; O2SAT 95
[2024-12-12 00:01] LABS: Pro- Brain NATRIURETIC PEPTIDE 326 pg/mL (<=900); Troponin T High Sensitivity 32 ng/L (<=22)
[2024-12-12 00:14] LABS: Troponin T High Sens 2 HR 37 ng/L (<=22)
[2024-12-12 00:15] VITALS: PULSE 91; RESP 25; O2SAT 95
[2024-12-12 00:34] VITALS: BP 121/65; PULSE 91; RESP 25; TEMP 37; O2SAT 95
== END 2024-12-12 00:37 | disposition home or self-care (01) ==
PROVIDERS: Emergency Provider Emergency Medicine; PCP Family Medicine; Visit Provider Emergency Medicine
DX: R06.09 Other forms of dyspnea (principal); I50.9 Heart failure, unspecified; J44.1 Chronic obstructive pulmonary disease with (acute) exacerbation; E11.9 Type 2 diabetes mellitus without complications; E78.00 Pure hypercholesterolemia, unspecified; I25.10 Atherosclerotic heart disease of native coronary artery without angina pectoris; Z79.02 Long term (current) use of antithrombotics/antiplatelets; Z85.46 Personal history of malignant neoplasm of prostate; Z95.5 Presence of coronary angioplasty implant and graft; Z79.84 Long term (current) use of oral hypoglycemic drugs; Z79.899 Other long term (current) drug therapy; F17.200 Nicotine dependence, unspecified, uncomplicated; E86.0 Dehydration; R06.2 Wheezing
CPT/HCPCS: 71046; 80048; 83880; 84484; 85025; 93005; 94640; 96374; 99284; A4216